=== PATIENT | male | born 1965 | race Caucasian/White ===

== ENCOUNTER 2016-10-07 15:09 | Inpatient (IN) ==
--- NOTE | 2016-10-07 15:26 | Emergency Department Report ---
SOB HPI - General Chief Complaint: Shortness of Breath/Dyspnea Stated Complaint: Soa Time Seen by Provider: 10/07/16 15:22 Source: patient Mode of arrival: ambulatory Limitations: no limitations - History of Present Illness 51 YO M presents to ED with report of increasing dyspnea. Patient has a hx. of COPD. Says that over the last week he has become more SOA. Feels like he is fluid overloaded as well (hx. of CHF). Patient has not been taking any medication for past 6 months. Has not seen his PCP for six months. Patient is currently on 3L of O2/NC at all times. Does have c-pap but does not always use. States he smoke only 1/2 cigarette denies fever, chills, new or increasing cough , CP, abdominal pain, tenderness in lower extremities, sick contacts. Patient does have a hx. of severe anxiety/depression. MD Complaint: shortness of breath Onset (ago): day(s) Known history of: COPD, congestive heart failure, diabetes Treatment prior to arrival: oxygen - Related Data Home oxygen amount: 3 liters Home Medications Medication Instructions Recorded Confirmed No known Home medications [No home 10/07/16 10/07/16 meds] Allergies Allergy/AdvReac Type Severity Reaction Status Date / Time No Known Drug Allergies Allergy Unknown Verified 10/07/16 15:43 Review of Systems All systems: reviewed and negative except as stated Respiratory: Reports: as per HPI, dyspnea PFSH Patient Stated Medical History Congestive Heart Failure Yes Hypertension Yes Asthma Yes Chronic Obstructive Pulmonary Yes Disease (COPD) Pneumonia Yes Sleep Apnea Yes Diabetes Mellitus Type 2 Yes Surgical History: Heart catheterization. Shoulder arthroscopy Family History: Noncontributory - Social History Household members: children Current occupational status: disabled Physical Exam - Limitations Limitations: no limitations - General General appearance: alert - Normal Exams: Head:: Normocephalic without trauma Eyes:: Pupils are PERRLA w/ EOMI, No scleral icterus, irritation ENMT:: No facial trauma, nasal exudates, pharyngeal erythema, or exudates are noted Neck:: Full range of motion, without adenopathy Abdomen:: Bowel sounds positive, soft, non-tender Musculoskeletal:: No tenderness, good range of motion, all extremities Integumentary:: No rashes Neurological:: Patient is alert, and oriented, cranial nerves, motor/sensory/ cerebellar, exams w/o gross deficits, to observation Psychiatric:: Patient exhibits, appropriate attention - Respiratory Respiratory exam: Present: respiratory distress (tachypnic, 36 R/min, patient sitting up to breath) - Expanded Respiratory Exam Location: Left: decreased breath sounds (Patient has minimal air movement throughout lungs bilt.), Right: decreased breath sounds, Upper: decreased breath sounds, Lower: decreased breath sounds - Cardiovascular Cardiovascular exam: Present: other (rate 98 BPM and regular rhythm) - Skin Skin exam: Present: warm, dry - Psychiatric Psychiatric exam: Present: anxious Course - Consultations Consultation #1: I discussed patient's HPI, PMH, labs, CXR, VS, exam findings and medication given in the ED with Dr. Desai. Dr. Desai will admit patient observation. Vital Signs Temperature 98.3 F 10/07/16 15:13 Pulse Rate 97 10/07/16 15:13 Respiratory Rate 36 H 10/07/16 15:13 Blood Pressure 186/109 H 10/07/16 15:13 Pulse Oximetry 95 10/07/16 15:13 Temperature 96.5 F L 10/08/16 07:24 Pulse Rate 91 10/08/16 08:00 Respiratory Rate 24 10/08/16 08:30 Blood Pressure 161/92 H 10/08/16 07:24 Pulse Oximetry 96 10/08/16 08:30 Shortness of Breath/Dyspnea - [facility] Narrative Medical decision making narrative: Patient is able to move more air throughout lungs after duoneb, still decreased throughout bilaterally, and tachypnea. Patient still tripoding. Improved movement of air flow throughout lungs after 2nd DuoNeb, patient is able to lie down. Patient remains tachypneic. RT miguelina from vein not artery for blood gas. Patient compensating well due to respiratory distress. VGB patient appears hypercapnic most likely from having O2 set too high. CBC unremarkable. NA 147, Troponin 0.048, BNP 949, no acute cardiopulmonary findings. Patient has urinated almost 1 liter off after 40mg of lasix. Air movement throughout bilateral lungs park improved. Patient has improvement of RR from 36 to 26 respiration per minutes. I discussed labs, EKG and CXR with patient and answered his questions. Patient agrees to admission for COPD exacerbation. Patient is admitted observation improved. - Differential Diagnosis Likely: acute exacerbation of chronic obstructive airways disease, congestive heart failure, community acquired pneumonia - Medical Records Attestation: I reviewed the patient's medical records. - Lab Data Attestation: I reviewed the patient's lab results. Result diagrams: 10/08/16 04:34 10/08/16 04:34 Lab Results 10/07/16 10/07/16 10/07/16 Range/Units 15:40 15:40 15:40 WBC 10.6 (4.5-11.0) T/MM3 RBC 4.99 (4.50-5.90) M/MM3 Hgb 14.4 (13.5-17.5) GM/DL Hct 46.3 (41-53) % MCV 92.8 (80-100) UM3 MCH 28.9 (26-34) UUG MCHC 31.1 (31-37) GM/DL RDW Std Deviation 44.0 (36.9-50.2) FL Plt Count 166 (130-400) T/MM3 MPV 9.6 (9.4-12.4) UM3 Immature Gran % (Auto) 0.1 (0.0-0.5) % Neut % (Auto) 74.3 H (33-66) % Lymph % (Auto) 16.5 L (23-45) % [place] % (Auto) 6.9 (0-9.0) % Eos % (Auto) 1.9 (0-4) % Baso % (Auto) 0.3 (0-2) % Neut # 7.9 H (1.8-7.7) T/MM3 Lymph # 1.8 (1-4.8) T/MM3 [place] # 0.7 (0-0.8) T/MM3 Eos # 0.2 (0-0.5) T/MM3 Baso # 0.0 (0-0.2) T/MM3 Abs Immat Gran (auto) 0.01 (0.00-0.03) T/MM3 Specimen Type ABG pH ABG pCO2 ABG pO2 ABG HCO3 ABG Total CO2 ABG O2 Saturation ABG Base Excess VBG pH (7.31-7.41) VBG pCO2 (40-52) MMHG VBG pO2 (40-52) MMHG VBG HCO3 (22-26) MEQ/L VBG Total CO2 MEQ/L VBG O2 Saturation % VBG Base Excess (-2.0-2.0) MMOL/L O2 Delivery Method Vent Rate FiO2 % FiO2 (liters per min) PEEP Inspiratory Pressure Pressure Support Turbidity < 20 (0-20) Sodium 147 H (134-144) MEQ/L Potassium 4.0 (3.6-5) MEQ/L Chloride 97 L (98-107) MEQ/L Carbon Dioxide 39 H (22-30) MEQ/L Anion Gap 11 (5-15) MEQ/L BUN 14.0 (9-20) MG/DL Creatinine 0.8 (0.8-1.5) MG/DL GFR Calculation 102 BUN/Creatinine Ratio 18 (6-26) RATIO Glucose 135 H (75-110) MG/DL Calculated Osmolality 285 H (261-280) MOSM/KG Calcium 9.2 (8.4-10.2) MG/DL Icterus Index < 2 (0-7) Troponin I 0.048 (0-0.12) ng/ml B-Natriuretic Peptide 949 H (0-175) pg/mL Specimen Hemolysis < 15 (0-25) 10/07/16 10/07/16 Range/Units 16:40 16:40 WBC (4.5-11.0) T/MM3 RBC (4.50-5.90) M/MM3 Hgb (13.5-17.5) GM/DL Hct (41-53) % MCV (80-100) UM3 MCH (26-34) UUG MCHC (31-37) GM/DL RDW Std Deviation (36.9-50.2) FL Plt Count (130-400) T/MM3 MPV (9.4-12.4) UM3 Immature Gran % (Auto) (0.0-0.5) % Neut % (Auto) (33-66) % Lymph % (Auto) (23-45) % [place] % (Auto) (0-9.0) % Eos % (Auto) (0-4) % Baso % (Auto) (0-2) % Neut # (1.8-7.7) T/MM3 Lymph # (1-4.8) T/MM3 [place] # (0-0.8) T/MM3 Eos # (0-0.5) T/MM3 Baso # (0-0.2) T/MM3 Abs Immat Gran (auto) (0.00-0.03) T/MM3 Specimen Type Cancelled ABG pH Cancelled ABG pCO2 Cancelled ABG pO2 Cancelled ABG HCO3 Cancelled ABG Total CO2 Cancelled ABG O2 Saturation Cancelled ABG Base Excess Cancelled VBG pH 7.390 (7.31-7.41) VBG pCO2 67 H (40-52) MMHG VBG pO2 28 L (40-52) MMHG VBG HCO3 41 H (22-26) MEQ/L VBG Total CO2 42.7 MEQ/L VBG O2 Saturation 52.0 % VBG Base Excess 12.8 H (-2.0-2.0) MMOL/L O2 Delivery Method Cancelled Nasal cannula, liter Vent Rate Cancelled FiO2 % Cancelled FiO2 (liters per min) Cancelled PEEP Cancelled Inspiratory Pressure Cancelled Pressure Support Cancelled Turbidity (0-20) Sodium (134-144) MEQ/L Potassium (3.6-5) MEQ/L Chloride (98-107) MEQ/L Carbon Dioxide (22-30) MEQ/L Anion Gap (5-15) MEQ/L BUN (9-20) MG/DL Creatinine (0.8-1.5) MG/DL GFR Calculation BUN/Creatinine Ratio (6-26) RATIO Glucose (75-110) MG/DL Calculated Osmolality (261-280) MOSM/KG Calcium (8.4-10.2) MG/DL Icterus Index (0-7) Troponin I (0-0.12) ng/ml B-Natriuretic Peptide (0-175) pg/mL Specimen Hemolysis (0-25) - Radiology Data Attestation: I reviewed the patient's radiology results. No acute cardio-pulmonary findings (Dr. Singh) - EKG Data EKG #1 EKG attestation: Yes: I reviewed and interpreted this EKG. EKG results narrative: Sinus rhythm with rate of 89 BPM, No STEMI. T wave abnormality documented on previous EKG (Dr. Singh0 EKG #2 EKG attestation: Yes: I reviewed and interpreted this EKG. EKG results narrative: SR, 97 BPM, No STEMI, (Dr. Singh) Disposition Clinical Impression: Acute chronic obstructive pulmonary disease with respiratory distress Disposition: To [facility] Condition: Stable - Seen By: midlevel
[2016-10-07] MEDS ORDERED: METHYLPREDNISOLONE SOD SUCC 125mg/2ml INJECTION IVP ONE (15:29)
[2016-10-07] MEDS ORDERED: ALBUTEROL/IPRATROPIUM 2.5mg-0.5mg/3ml NEB IH ONE (15:29)
[2016-10-07] MEDS: SALINE FLUSH 10ml SYRINGE IVF PRN ×3 (15:46→19:10)
[2016-10-07] MEDS ORDERED: ALBUTEROL/IPRATROPIUM 2.5mg-0.5mg/3ml NEB AEROSOL ONE (15:47)
[2016-10-07] MEDS ORDERED: FUROSEMIDE 40 MG/4 ML INJECTION IVP ONE (16:17)
[2016-10-07] MEDS ORDERED: SENNOSIDES 8.6 MG TABLET PO PRN (18:05)
[2016-10-07] MEDS ORDERED: CALCIUM CARBONATE Chewable 500mg TABLET PO PRN (18:05)
[2016-10-07] MEDS ORDERED: MAG-AL + SIM ORAL LIQUID 30ml PO PRN (18:05)
[2016-10-07] MEDS ORDERED: ONDANSETRON 4 MG/2 ML INJECTION IVP PRN (18:05)
[2016-10-07] MEDS ORDERED: ALBUTEROL 2.5mg/3ml (0.083%) NEB AEROSOL PRN (18:13)
[2016-10-07 18:47] VITALS: BMI 36.5
[2016-10-07] MEDS ORDERED: FUROSEMIDE 20 MG/2 ML INJECTION IVP ONE (18:48)
--- NOTE | 2016-10-07 18:58 | History & Physical Report ---
History of Present Illness Date: 10/07/16 Chief complaint: "I can't catch my breath anymore" HPI: Mr. Antonio is a 51-year-old gentleman with multiple chronic medical conditions including dilated CM and previous TTE in October 2015 with EF of 30%, global hypokinesis, dilated LV. He had a cardiac cath in 2014 with normal coronary arteries. He was admitted here one year ago with chest pain and dyspnea as well as agitation and anxiety and improved with treatment of COPD and heart failure. He does have significant COPD, continued tobacco dependence and HTN as well as severe anxiety. He has not taken any prescribed medications for the past 6 months or so, is recently and on disability due to his medical issues but is not yet receiving medical benefits so has no insurance at this time. He has not seen his PCP recently, but he is on 3L of 02 chronically at home (continuous). He has been more short of air the last week, to the point where he is barely smoking. He presented to the ED today and is improved after duoneb treatments, IV solumedrol and a dose of lasix 40 mg IV x1 but still very dyspneic with speech. His primary concern currently is his anxiety; he feels like he cannot calm down. He remains tachypneic and tachycardic. His son and his mom are here with him at the bedside. He is worried about his cardiac function, has not seen Dr. Merchant recently and has been off of all his medications as above. He feels his weights have gone up a little and he feels "puffy". Review of Systems - Constitutional Constitutional: Present: as per HPI, daytime sleepiness, weight gain. Absent: anorexia, chills, fever(s), headache(s) - EENMT Eyes: Absent: blurry vision, change in vision Balance: Absent: vertigo Mouth/Throat: Absent: sore throat, changes in swallowing - Cardiovascular Cardiovascular: Present: dyspnea on exertion, orthopnea, edema (trace LE). Absent: chest pain, palpitations, syncope Vascular: Present: pedal edema. Absent: unilateral swelling, varicosities - Respiratory Respiratory: Present: cough, dyspnea, wheezing. Absent: hemoptysis, excessive phlegm production - Gastrointestinal Gastrointestinal: Absent: abdominal pain, change in bowel habits, dysphagia - Genitourinary Genitourinary: Absent: difficulty urinating, dysuria - Musculoskeletal Musculoskeletal: Present: back pain. Absent: muscle cramps, muscle weakness - Integumentary/Breasts Integumentary: Absent: erythema, pruritus, rash - Neurological Neurological: Absent: abnormal speech, confusion, focal weakness, sensory deficit - Psychiatric Psychiatric: Present: anxiety, depression - Endocrine Endocrine: Absent: cold intolerance, heat intolerance, polydipsia, polyphagia - Hematologic/Lymphatic Hematologic/Lymphatic: Absent: easy bleeding, easy bruising, lymphadenopathy - Allergic/Immunologic Allergic/Immunologic: Absent: tongue swelling, throat swelling PFSH As per HPI, notable for dilated CM and EF of 30%, COPD requiring chronic 02 continuously, HTN, dyslipidemia, tobacco dependence, obesity and chronic lumbago as well as chronic anxiety. Surgical History: Heart catheterization. Shoulder arthroscopy Family History: Father with HTN and alcoholism. One brother has due to issues related to EtOH. No heart disease he is aware of. - Social History Smoking status: Current every day smoker Time spent discussing smoking cessation with patient: 3 to 10 minutes Substance use type: does not use Alcohol intake frequency: holidays/special occasions only Household members: children (son lives with him, he is recently ) Current occupational status: disabled Medications Home Medications Medication Instructions Recorded Confirmed Type No known Home medications [No home 10/07/16 10/07/16 History meds] Allergies Allergy/AdvReac Type Severity Reaction Status Date / Time No Known Drug Allergies Allergy Unknown Verified 10/07/16 15:43 Exam Vital Signs: Temperature 98.3 F 10/07/16 18:42 Pulse Rate 87 10/07/16 18:42 Respiratory Rate 22 10/07/16 18:42 Blood Pressure 175/94 H 10/07/16 18:42 Pulse Oximetry 91 10/07/16 18:42 Oxygen Delivery Method Nasal Cannula Oxygen Flow Rate 3 Telemetry Rhythm: Sinus Tachycardia Height: 1.8 m Weight: 118.9 kg Body Mass Index: 36.5 - Constitutional Present: mild distress, obese, disheveled, cooperative - Routine HEENT Exam Head: Present: normocephalic, atraumatic Eye: Present: EOMI, PERRL. Absent: conjunctival icterus ENT: Present: mucous membranes moist, oropharynx clear - Routine Neck Exam Present: supple, full ROM. Absent: lymphadenopathy, tenderness - Routine Chest/Breast/Axilla Exam Chest wall: Absent: tenderness, mass - Routine Respiratory Exam Present: accessory muscle use, dyspnea, wheezes, diminished air movement - Routine Cardiovascular Exam Present: tachycardia. Absent: no murmur, rubs - Routine Abdominal Exam Present: soft (obese). Absent: non distended, non tender - Routine Extremities Exam Present: edema (trace BLE), full ROM, pulses intact. Absent: cyanosis, clubbing - Routine Back/Spine/Pelvis Exam Back/Spine: Present: full ROM. Absent: CVA tenderness - Routine Skin Exam Present: intact, dry. Absent: erythema, rash - Routine Neurological Exam Present: alert, oriented X3, moving all extremities, vision grossly intact, hearing grossly intact, normal speech - Routine Psychiatric Exam Present: anxious Results - Labs CBC & Chem 7: 10/07/16 15:40 10/07/16 15:40 Labs: Previous admissions reviewed; TTE results reviewed as below: DATE OF PROCEDURE 11/02/2015 This is a two-dimensional echo with spectral Doppler, color-flow and M-mode. It was obtained in a patient with shortness of air. Left atrial dimension is normal. Left ventricular end-diastolic dimension is increased. Left ventricular wall thickness is normal. LV systolic function is reduced with global hypokinesia with ejection fraction of about 30%. Right atrium is normal. Right ventricle is normal. Aortic root dimension is normal. Mitral valve is morphologically normal with trace of mitral regurgitation. Aortic valve is normal. Tricuspid valve shows trace of tricuspid regurgitation with low pulmonary artery systolic pressure of 14. Pulmonary valve shows trace of pulmonary insufficiency. There is no pericardial effusion. IMPRESSION 1. Left ventricular dilation. 2. Global hypokinesia with ejection fraction of about 30%. 3. Trace of mitral regurgitation. 4. Trace of tricuspid regurgitation with low systolic pulmonary pressure of 14. 5. Trace of pulmonary insufficiency. - ABG Interpretation Interpretation: venous blood gas (reviewed with pH 7.39, PC02 67) Assessment and Plan (1) Dilated cardiomyopathy Problem details: EF 30% on TTE done 10/2015; global hypokinesis and dilated LV Current visit: Yes Status: Acute (2) Hypertension Problem details: Off all medications for > 6 months, uncontrolled Current visit: Yes Status: Acute (3) COPD, severe Problem details: on 3L NC chronically at home Current visit: Yes Status: Acute (4) Acute and chronic respiratory failure with hypoxia Problem details: Chronic secondary to COPD, acute likely a combination of COPD exacerbation and volume overload/systolic heart failure exacerbation Current visit: Yes Status: Acute (5) Tobacco dependence syndrome Problem details: Ongoing, discussed cessation, unclear how much he is smoking routinely Current visit: Yes Status: Acute (6) Anxiety Problem details: Severe and chronic, untreated, exacerbated by dyspnea Current visit: Yes Status: Acute (7) Metabolic alkalosis with respiratory acidosis Problem details: C02 39 at admission, likely chronic compensation due to resp acidosis Current visit: Yes Status: Acute (8) Acute hypernatremia Problem details: Na 147 at admission Current visit: Yes Status: Acute DVT Prophylaxis: Lovenox Resuscitation Status: Full Code Assessment and Plan: Plan: Keep for observation tonight, monitor respiratory status Azithromycin 500 mg po now and daily for inflammation Lasix IV 20 mg x 1 in addition to dose given in ED, monitor weights and I/Os Solumedrol 125 mg IV Q6H acutely for COPD exacerbation Repeat TTE if able in AM 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; will start lisinopril 10 mg daily for cardiomyopathy and HTN Start beta chantale if able when breathing improved Start ASA 81 mg po daily Duoneb treatments QID and prn albuterol nebulized Ativan 1 mg prn for anxiety Cardiac diet BMP, CBC, lipid panel in AM for surveillance as well as A1C Case management consult to help determine what resources may be available for medications Discussed smoking cessation tonight Will reassess in AM; if not improved with supportive care or concern for worsening cardiac issues may need to be inpatient but at this point I expect him to improve with supportive care and anticipate his stay will be < 2 midnights. Sepsis Assessment - Evaluation Sepsis screening result: No Definite Risk Confirmed Suspected Infection: No SIRS Criteria: pulse > or equal to 90 beats/minute, RR > or equal to 20 Severe Sepsis: none seen - Focused Exam Date exam was performed: 10/07/16 Time exam was performed: 18:30 -see admission records for detailed exam and vitals Hospital Course Summary Disclaimer: The visit summary below is not to be considered part of the above Progress Note. Hospital Course: 10/07/16 19:27 Assessment: Acute hypoxic respiratory failure on chronic; typically on 3L baseline, primarily secondary to COPD exacerbation in the setting of severe COPD as well as dilated CM. Mild edema but no evidence of volume overload on CXR. Labs diffusely normal. Has been off of all of his medications for > 6 months due to financial issues and cardiac status may have worsened. Has ongoing tobacco dependence as well. No evidence of sepsis or acute infection. 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
[2016-10-07] MEDS: AZITHROMYCIN 500 MG TABLET PO SCH (19:02)
[2016-10-07] MEDS: ENOXAPARIN 40 MG/0.4 ML INJECTION SQ SCH (19:02)
[2016-10-07] MEDS: LORazepam 1 MG TABLET PO PRN (19:10)
[2016-10-07] MEDS: BUDESONIDE INH.SOLN 0.5mg/2ml NEB AEROSOL SCH (20:40)
[2016-10-07] MEDS: ALBUTEROL/IPRATROPIUM 2.5mg-0.5mg/3ml NEB AEROSOL SCH (20:40)
[2016-10-07] MEDS: METHYLPREDNISOLONE SOD SUCC 125mg/2ml INJECTION IVP SCH (21:23)
[2016-10-08] MEDS: METHYLPREDNISOLONE SOD SUCC 125mg/2ml INJECTION IVP SCH ×2 (02:28→09:24)
[2016-10-08] MEDS: LORazepam 1 MG TABLET PO PRN ×3 (02:28→23:57)
[2016-10-08] MEDS ORDERED: NICOTINE PATCH REMOVAL TD PRN (06:29)
[2016-10-08] MEDS: ALBUTEROL/IPRATROPIUM 2.5mg-0.5mg/3ml NEB AEROSOL SCH ×4 (08:32→21:05)
[2016-10-08] MEDS: BUDESONIDE INH.SOLN 0.5mg/2ml NEB AEROSOL SCH ×2 (08:32→21:05)
[2016-10-08] MEDS: ENOXAPARIN 40 MG/0.4 ML INJECTION SQ SCH (09:25)
[2016-10-08] MEDS: SALINE FLUSH 10ml SYRINGE IVF PRN ×2 (09:25→22:03)
[2016-10-08] MEDS: AZITHROMYCIN 500 MG TABLET PO SCH (09:25)
--- NOTE | 2016-10-08 09:36 | XRay Report ---
INDICATION: SOA PROCEDURE: CHEST 2-VIEWS UPRIGHT (PA & LAT) Encounter: Initial COMPARISON: April 25, 2016 FINDINGS: The lungs are clear without evidence of focal abnormal airspace opacity. There is no pleural effusion or pneumothorax. The heart size, mediastinal contours and pulmonary vascularity are within normal limits. There is no significant skeletal abnormality. IMPRESSION: No acute cardiopulmonary disease. .
[2016-10-08] MEDS: INSULIN ASPART 100unit/ml INJECTION SQ PRN ×3 (11:28→23:29)
--- NOTE | 2016-10-08 11:42 | Progress Note ---
Subjective: Breathing is better today. Feels very anxious. Using a nicotine patch that he requested overnight, also receiving IV ativan. Son is staying with him in the room. Still feels "bloated" and thinks his weights are higher than typical for him. Does not want to be on a cardiac diet but discussed reasons this is helpful. States that his diabetes has resolved over the last year due to weight loss but has not had any blood sugars checked or A1C testing done. Objective Vital signs: Temperature 96.5 F L 10/08/16 07:24 Pulse Rate 91 10/08/16 08:00 Respiratory Rate 24 10/08/16 08:30 Blood Pressure 161/92 H 10/08/16 07:24 Pulse Oximetry 96 10/08/16 08:30 Oxygen Delivery Method Nasal Cannula Oxygen Flow Rate 3 Rhythm: Normal Sinus Rhythm Weight: 117.4 kg Comments: tachycardia at times - Constitutional Present: no acute distress, cooperative - Routine HEENT Exam Head: Present: normocephalic, atraumatic ENT: Present: mucous membranes moist, oropharynx clear - Routine Respiratory Exam Present: CTA bilaterally (in upper airways, diminished bases ), prolonged expiratory phase. Absent: accessory muscle use, respiratory distress, wheezes, crackles - Routine Cardiovascular Exam Present: RRR. Absent: no murmur, rubs - Routine Abdominal Exam Present: soft, normoactive bowel sounds. Absent: tenderness, non distended - Routine Extremities Exam Present: edema (trace bLE), full ROM, pulses intact, normal capillary refill - Routine Skin Exam Present: intact, dry, warm. Absent: rash - Routine Neurological Exam Present: alert, oriented X3, vision grossly intact, hearing grossly intact, normal speech - Routine Psychiatric Exam Present: anxious Results - Labs CBC & Chem 7: 10/08/16 04:34 10/08/16 04:34 Assessment and Plan (1) Dilated cardiomyopathy Problem details: EF 30% on TTE done 10/2015; global hypokinesis and dilated LV Current visit: Yes Status: Acute (2) Hypertension Problem details: Off all medications for > 6 months, uncontrolled Current visit: Yes Status: Acute (3) COPD, severe Problem details: on 3L NC chronically at home Current visit: Yes Status: Chronic (4) Acute and chronic respiratory failure with hypoxia Problem details: Chronic secondary to COPD, acute likely a combination of COPD exacerbation and volume overload/systolic heart failure exacerbation Current visit: Yes Status: Acute (5) Tobacco dependence syndrome Problem details: Ongoing, discussed cessation, unclear how much he is smoking routinely Current visit: Yes Status: Acute (6) Anxiety Problem details: Severe and chronic, untreated, exacerbated by dyspnea Current visit: Yes Status: Acute (7) Metabolic alkalosis with respiratory acidosis Problem details: C02 39 at admission, likely chronic compensation due to resp acidosis Current visit: Yes Status: Acute (8) Acute hypernatremia Problem details: Na 147 at admission, improved to 141 Current visit: Yes Status: Resolved DVT Prophylaxis: Lovenox Resuscitation Status: Full Code Assessment and Plan: Plan: Keep for observation overnight, obtain TTE and opinion from Dr. Merchant tomorrow AM Azithromycin 500 mg po daily for airway inflammation, no evidence of acute infection Bumex 1 mg po daily, monitor weights and I/Os closely Stop solumedrol and start prednisone 40 mg po daily Repeat TTE today for surveillance, resume cardiac meds with lisinopril, ASA, statin; will start BB when breathing improved Monitor BP and increased meds as needed if remaining elevated Start beta chantale if able when breathing improved Duoneb treatments QID and prn albuterol nebulized Ativan 1 mg TID prn for anxiety Cardiac diet Check lipid panel and A1C for surveillance Case management consult to help determine what resources may be available for medications Discussed smoking cessation again today Will reassess in AM; if not improved with supportive care or concern for worsening cardiac issues may need to be inpatient but at this point I expect him to improve with supportive care and anticipate his stay will still be < 2 midnights. Likely can discharge tomorrow after echo results available if breathing improved; he has home 02 available already. Will need to discuss his medications and try to find a regimen he can afford. Sepsis Assessment - Evaluation Sepsis screening result: No Definite Risk Hospital Course Summary Disclaimer: The visit summary below is not to be considered part of the above Progress Note. Hospital Course: 10/07/16 19:27 Assessment: Acute hypoxic respiratory failure on chronic; typically on 3L baseline, primarily secondary to COPD exacerbation in the setting of severe COPD as well as dilated CM. Mild edema but no evidence of volume overload on CXR. Labs diffusely normal. Has been off of all of his medications for > 6 months due to financial issues and cardiac status may have worsened. Has ongoing tobacco dependence as well. No evidence of sepsis or acute infection. 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 Merchant tomorrow Azithromycin 500 mg po daily for airway inflammation, no evidence of acute infection Bumex 1 mg po daily, monitor weights and I/Os closely Stop solumedrol and start prednisone 40 mg po daily Resume cardiac meds with lisinopril, ASA, statin; will start BB when breathing improved Monitor BP and increased meds as needed if remaining elevated Start beta [place] if able when breathing improved Duoneb treatments QID and prn albuterol nebulized Ativan 1 mg TID prn for anxiety Cardiac diet Check lipid panel and A1C for surveillance Case management consult to help determine what resources may be available for medications Discussed smoking cessation again today
[2016-10-08] MEDS: LISINOPRIL 20 MG TABLET PO SCH (12:19)
[2016-10-08] MEDS: BUMETANIDE 1 MG TABLET PO SCH (12:19)
[2016-10-08] MEDS: ACETAMINOPHEN 325 MG TABLET PO PRN ×2 (12:19→19:24)
[2016-10-08] MEDS ORDERED: NITROGLYCERIN 0.4 MG SUBLINGUAL TABLET SL PRN (19:03)
[2016-10-08] MEDS: MORPHINE SULFATE 2 MG SYRINGE IVP PRN ×2 (19:32→23:57)
[2016-10-08] MEDS ORDERED: MORPHINE SULFATE 10 MG SYRINGE IV ONE (19:58)
[2016-10-08] MEDS: SIMVASTATIN 20 MG TABLET PO SCH (22:02)
--- NOTE | 2016-10-09 01:03 | Event Note ---
patient had onset of chest pain and was discussed with off going hospitalist. EKG and labs ordered with NTG and morphine. The EKG was quiet. troponin was unchanged essentially from baselilne and has remained so. Patient continues with intermittent pain tonight. DDX: MS, pleuresy, GERD. at this time will complete rule out on tele. dimer is pending. If signficantly elevated will need to consider doing a CT PE to exclude clot. vitals are stable. exam was unremarkable.
[2016-10-09] MEDS: INSULIN ASPART 100unit/ml INJECTION SQ PRN ×4 (07:40→23:07)
[2016-10-09] MEDS: ALBUTEROL/IPRATROPIUM 2.5mg-0.5mg/3ml NEB AEROSOL SCH ×4 (07:49→20:00)
[2016-10-09] MEDS: BUDESONIDE INH.SOLN 0.5mg/2ml NEB AEROSOL SCH ×2 (07:49→20:00)
[2016-10-09] MEDS: ENOXAPARIN 40 MG/0.4 ML INJECTION SQ SCH (09:21)
[2016-10-09] MEDS: ASPIRIN *EC* 325 MG TABLET PO SCH (09:21)
[2016-10-09] MEDS: AZITHROMYCIN 500 MG TABLET PO SCH (09:21)
[2016-10-09] MEDS: PredniSONE 20 MG TABLET PO SCH (09:22)
[2016-10-09] MEDS: LISINOPRIL 20 MG TABLET PO SCH (09:22)
[2016-10-09] MEDS: BUMETANIDE 1 MG TABLET PO SCH (09:22)
[2016-10-09] MEDS: MORPHINE SULFATE 2 MG SYRINGE IVP PRN ×3 (09:26→23:05)
[2016-10-09] MEDS: LORazepam 1 MG TABLET PO PRN ×3 (09:28→23:07)
--- NOTE | 2016-10-09 11:35 | Progress Note ---
<Breanna Jonas V - Last Filed: 10/09/16 11:31> Subjective: Gray is seen today in follow up. He reports that he did have several episodes of chest pain overnight and attributes this to "anxiety". He reports he is going through a difficulty divorce and he thinks this is causing significant stress and anxiety. Overall feels that his breathing is improved. Denies current chest pain or GI complaints. Objective Vital signs: Temperature 97.5 F 10/09/16 08:00 Pulse Rate 95 10/09/16 08:00 Respiratory Rate 18 10/09/16 08:00 Blood Pressure 148/85 H 10/09/16 08:00 Pulse Oximetry 96 10/09/16 08:00 Oxygen Delivery Method Nasal Cannula Oxygen Flow Rate 3 Fraction of Inspired Oxygen 96 Weight: 119.3 kg - Constitutional Present: no acute distress, well nourished, well developed - Routine HEENT Exam Eye: Present: EOMI, PERRL ENT: Present: mucous membranes moist, dentition normal - Routine Respiratory Exam Present: CTA bilaterally. Absent: wheezes - Routine Cardiovascular Exam Present: RRR, S1, S2. Absent: murmur - Routine Abdominal Exam Present: soft, normoactive bowel sounds, non distended. Absent: tenderness - Routine Extremities Exam Present: full ROM, normal capillary refill - Routine Back/Spine/Pelvis Exam Back/Spine: Present: full ROM - Routine Skin Exam Present: intact, dry, warm - Routine Neurological Exam Present: alert, oriented X3, CN II-XII intact - Routine Lymphatic Exam Lymphatic: Absent: adenopathy - Routine Psychiatric Exam Present: normal affect, normal thought process Results - Labs CBC & Chem 7: 10/09/16 00:00 10/09/16 00:00 Assessment and Plan (1) Dilated cardiomyopathy Problem details: EF 30% on TTE done 10/2015; global hypokinesis and dilated LV Current visit: Yes Status: Acute (2) Hypertension Problem details: Off all medications for > 6 months, uncontrolled Current visit: Yes Status: Acute (3) COPD, severe Problem details: on 3L NC chronically at home Current visit: Yes Status: Chronic (4) Acute and chronic respiratory failure with hypoxia Problem details: Chronic secondary to COPD, acute likely a combination of COPD exacerbation and volume overload/systolic heart failure exacerbation Current visit: Yes Status: Acute (5) Tobacco dependence syndrome Problem details: Ongoing, discussed cessation, unclear how much he is smoking routinely Current visit: Yes Status: Acute (6) Anxiety Problem details: Severe and chronic, untreated, exacerbated by dyspnea Current visit: Yes Status: Acute (7) Metabolic alkalosis with respiratory acidosis Problem details: C02 39 at admission, likely chronic compensation due to resp acidosis Current visit: Yes Status: Acute (8) Acute hypernatremia Problem details: Na 147 at admission, improved to 141 Current visit: Yes Status: Resolved Assessment and Plan: 10/09/16 Awaiting cardiology consultation and ECHO read. Several episodes of Chest pain overnight. Troponins are negative. 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 This is likely the cause of leukocytosis. Bumex 1 mg po daily, monitor weights and I/Os closely Continue on Bumex, lisinopril, ASA, statin and BB Duoneb treatments QID and prn albuterol nebulized Ativan 1 mg TID prn for anxiety. May need to consider a SSRI for ongoing treatment of anxiety. Will discuss further plan on care with attending Dr Ramírez. Sepsis Assessment - Evaluation Sepsis screening result: No Definite Risk Hospital Course Summary Disclaimer: The visit summary below is not to be considered part of the above Progress Note. Hospital Course: 10/07/16 19:27 Assessment: Acute hypoxic respiratory failure on chronic; typically on 3L baseline, primarily secondary to COPD exacerbation in the setting of severe COPD as well as dilated CM. Mild edema but no evidence of volume overload on CXR. Labs diffusely normal. Has been off of all of his medications for > 6 months due to financial issues and cardiac status may have worsened. Has ongoing tobacco dependence as well. No evidence of sepsis or acute infection. 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 Merchant tomorrow Azithromycin 500 mg po daily for airway inflammation, no evidence of acute infection Bumex 1 mg po daily, monitor weights and I/Os closely Stop solumedrol and start prednisone 40 mg po daily Resume cardiac meds with lisinopril, ASA, statin; will start BB when breathing improved Monitor BP and increased meds as needed if remaining elevated Start beta [place] if able when breathing improved Duoneb treatments QID and prn albuterol nebulized Ativan 1 mg TID prn for anxiety Cardiac diet Check lipid panel and A1C for surveillance Case management consult to help determine what resources may be available for medications Discussed smoking cessation again today <Melissa Ramírez - Last Filed: 10/09/16 15:34> Objective Vital signs: Temperature 97.5 F 10/09/16 08:00 Pulse Rate 95 10/09/16 08:00 Respiratory Rate 18 10/09/16 12:43 Blood Pressure 148/85 H 10/09/16 08:00 Pulse Oximetry 96 10/09/16 12:43 Results - Labs CBC & Chem 7: 10/09/16 00:00 10/09/16 00:00 Assessment and Plan (1) Dilated cardiomyopathy Problem details: EF 30% on TTE done 10/2015; global hypokinesis and dilated LV Current visit: Yes Status: Acute (2) Hypertension Problem details: Off all medications for > 6 months, uncontrolled Current visit: Yes Status: Acute (3) COPD, severe Problem details: on 3L NC chronically at home Current visit: Yes Status: Chronic (4) Acute and chronic respiratory failure with hypoxia Problem details: Chronic secondary to COPD, acute likely a combination of COPD exacerbation and volume overload/systolic heart failure exacerbation Current visit: Yes Status: Acute (5) Tobacco dependence syndrome Problem details: Ongoing, discussed cessation, unclear how much he is smoking routinely Current visit: Yes Status: Acute (6) Anxiety Problem details: Severe and chronic, untreated, exacerbated by dyspnea Current visit: Yes Status: Acute (7) Metabolic alkalosis with respiratory acidosis Problem details: C02 39 at admission, likely chronic compensation due to resp acidosis Current visit: Yes Status: Acute (8) Acute hypernatremia Problem details: Na 147 at admission, improved to 141 Current visit: Yes Status: Resolved Assessment and Plan: I have independently evaluated and examined this patient. I reviewed the chart, the patient's history, and the NUTRITION CONSULTANT/PA's documented findings as above. We discussed and formulated the assessment and plan as above with additions as below: Heron reports that his breathing is improving progressively; he continues to have chest pain but attributes it to anxiety which has been severe recently and he attributes to divorce related stress. He has previously had some counseling and some experience with SSRIs. He has Cymbalta at home but has not been using. Diuresing effectively. Oxygen saturation 96% on 3 L supplemental O2; respiratory rate improved but low- grade tachycardia persists. Respirations are nonlabored. Breath sounds are diminished throughout, no wheezing present, breath sounds clear Regular rhythm, S1 and S2. Trace edema at both ankles. Decrease azithromycin to 250 mg daily. Add sertraline for anxiety/depression. Continue scheduled lorazepam short-term, discharge with when necessary only. Cardiology consultation/Echo report pending. Need for medical follow-up at discharge discussed with patient in detail. EKG obtained overnight reviewed by myself-sinus rhythm/sinus tach, no acute changes; unchanged from admission. Chest x-ray also reviewed demonstrating relatively normal heart size and normal vascular markings. Clinically improved with diuresis although findings more suggestive of COPD exacerbation. Tobacco cessation also reviewed with the patient. Hospital Course Summary Disclaimer: The visit summary below is not to be considered part of the above Progress Note.
[2016-10-09] MEDS: CARVEDILOL 3.125 MG TABLET PO SCH ×2 (13:25→17:19)
--- NOTE | 2016-10-09 13:37 | Cardiology Consult Note ---
History of Present Illness Consult date: 10/08/16 <Caryl Salas - 10/09/16 13:48> Requesting physician: Jessica Desai <Caryl Salas - 10/09/16 13:48> Consult reason: chest pain <Caryl Salas - 10/09/16 13:48> Chief complaint: chest pain <Caryl Salas - 10/09/16 13:48> History of present illness: Mr. Antonio is a 51-year-old gentleman who is well known to Dr. Merchant with multiple chronic medical conditions including dilated CM and previous TTE in October 2015 with EF of 30%, global hypokinesis, dilated LV, . He had a cardiac cath in 2014 with normal coronary arteries. He was admitted here one year ago with chest pain and dyspnea as well as agitation and anxiety and improved with treatment of COPD and heart failure. He does have significant COPD, continued tobacco dependence and HTN as well as severe anxiety. He has not taken any prescribed medications for the past 6 months or so, is recently and on disability due to his medical issues but is not yet receiving medical benefits so has no insurance at this time. He has not seen his PCP recently, but he is on 3L of 02 chronically at home (continuous). He has been more short of air the last week, to the point where he is barely smoking. He presented to the ED and is improved after duoneb treatments, IV solumedrol and a dose of lasix 40 mg IV x1 but still very dyspneic with speech. His primary concern currently is his anxiety; he feels like he cannot calm down. He remains tachypneic and tachycardic. He is worried about his cardiac function, has not seen Dr. Merchant recently and has been off of all his medications as above. He feels his weights have gone up a little and he feels "puffy". He is examined in his room on Medical. He has been out in the [place] per wheelchair with his son. He reports SOA with activity and anxiety. He denies chest pain or pressure at this time but describes pain last night as a pain and tightness in his chest and neck, cramping in the right arm. He denies nausea, diaphoresis or syncope. <Caryl Salas 10/09/16 13:48> Review of Systems - Constitutional Constitutional: Absent: chills, fatigue, fever(s) <Caryl Salas 10/09/16 13:48> - EENMT Eyes: Absent: change in vision <Caryl Salas 10/09/16 13:48> Balance: Absent: vertigo <Caryl Salas 10/09/16 13:48> Mouth/Throat: Absent: sore throat, changes in swallowing <Caryl Salas 13:48> - Cardiovascular Cardiovascular: Present: chest pain (and tightness), dyspnea on exertion, edema. Absent: palpitations, syncope, orthopnea <Caryl Salas 10/09/16 13 :48> Vascular: Present: pedal edema. Absent: unilateral swelling, varicosities < Caryl Salas 10/09/16 13:48> - Respiratory Respiratory: Present: dyspnea on exertion. Absent: cough <Caryl Salas 13:48> - Gastrointestinal Gastrointestinal: Absent: constipation, diarrhea, nausea, vomiting <Caryl Salas 10/09/16 13:48> - Genitourinary Genitourinary: Absent: difficulty urinating, dysuria <Caryl Salas 13:48> - Integumentary/Breasts Integumentary: Absent: rash <Caryl Salas 10/09/16 13:48> - Neurological Neurological: Absent: dizziness <Caryl Salas 10/09/16 13:48> - Endocrine Endocrine: Absent: palpitations <Caryl Salas 10/09/16 13:48> [facility] Patient Stated Medical History Congestive Heart Failure Yes Hypertension Yes Asthma Yes Chronic Obstructive Pulmonary Yes Disease (COPD) Pneumonia Yes Sleep Apnea Yes Diabetes Mellitus Type 2 Yes Osteoarthritis Yes MRSA Yes Depression Yes: manic <Caryl Salas 10/09/16 13:48> Surgical History: Heart catheterization-2015- Patent coronaries. Right Shoulder arthroscopy. cholecystectomy <MaritzaCaryl Ziegler 10/09/16 13:48> Family History: No significant family history of Heart disease, CVA, DM or Cancer <MaritzaCaryl Ziegler 10/09/16 13:48> - Social History Smoking status: Current every day smoker <Caryl Salas 10/09/16 13:48> Substance use type: does not use <Caryl Salas 10/09/16 13:48> Alcohol intake frequency: does not drink <Caryl Salas 10/09/16 13:48> Household members: children <Caryl Salas 10/09/16 13:48> Current occupational status: disabled <Caryl Salas 10/09/16 13:48> Current residence: Apartment/Private Home <Caryl Salas 10/09/16 13:48> Medications Allergies Allergy/AdvReac Type Severity Reaction Status Date / Time No Known Drug Allergies Allergy Unknown Verified 10/07/16 15:43 <ShondaLee - 10/11/16 08:12> Exam Vital signs: Temperature 97.2 F 10/10/16 07:27 Pulse Rate 95 10/10/16 07:27 Respiratory Rate 20 10/10/16 12:35 Blood Pressure 157/98 H 10/10/16 07:27 Pulse Oximetry 93 10/10/16 12:35 Oxygen Delivery Method Nasal Cannula Oxygen Flow Rate 3 Fraction of Inspired Oxygen 3 <Lee Merchant - 10/11/16 08:12> Temperature 97.5 F 10/09/16 08:00 Pulse Rate 95 10/09/16 08:00 Respiratory Rate 18 10/09/16 12:43 Blood Pressure 148/85 H 10/09/16 08:00 Pulse Oximetry 96 10/09/16 12:43 Oxygen Delivery Method Nasal Cannula Oxygen Flow Rate 3 Fraction of Inspired Oxygen 96 <Caryl Salas 10/09/16 13:48> - Constitutional no acute distress, obese, cooperative <Caryl Salas 10/09/16 13:48> - Routine HEENT Exam Head: Present: normocephalic <MaritzaCaryl Ziegler 10/09/16 13:48> Nose: moist mucous membranes <MaritzaCaryl Ziegler 10/09/16 13:48> - Routine Neck Exam Absent: JVD, carotid bruit <MaritzaCaryl Karlie 10/09/16 13:48> - Routine Chest/Breast/Axilla Exam Chest wall: Absent: tenderness <Caryl Salas 10/09/16 13:48> - Routine Respiratory Exam Present: CTA bilaterally. Absent: rales, respiratory distress, wheezes < Caryl Salas 10/09/16 13:48> - Routine Cardiovascular Exam Present: no murmur, irregular rhythm. Absent: JVD <Caryl Salas 10/09/16 13:48> - Routine Abdominal Exam Present: soft, normoactive bowel sounds <Caryl Salas 10/09/16 13:48> - Routine Extremities Exam Present: edema <Caryl Salas 10/09/16 13:48> - Routine Skin Exam Present: intact, dry, warm. Absent: rash <Caryl Salas 10/09/16 13:48> - Routine Neurological Exam Present: alert, oriented X3 <Caryl Salas 10/09/16 13:48> - Routine Psychiatric Exam Present: normal affect, normal thought process <Caryl Salas 10/09/16 13: 48> Results 10/09/16 00:00 10/10/16 04:41 <Lee Merchant - 10/11/16 08:12> Intake and Output 10/10/16 10/11/16 10/11/16 22:59 06:59 14:59 Intake Total 800 / 800 Balance 800 / 800 Intake: Oral 800 / 800 <Lee Merchant - 10/11/16 08:12> Cardiac Enzymes 10/08/16 10/08/16 10/09/16 Range/Units 19:11 20:49 00:00 Troponin I 0.040 Cancelled 0.036 (0-0.12) ng/ml CBC 10/09/16 Range/Units 00:00 WBC 17.1 H D (4.5-11.0) T/MM3 RBC 4.65 (4.50-5.90) M/MM3 Hgb 13.7 (13.5-17.5) GM/DL Hct 41.8 (41-53) % Plt Count 191 (130-400) T/MM3 Comprehensive Metabolic Panel 10/09/16 Range/Units 00:00 Sodium 138 (134-144) MEQ/L Potassium 3.9 (3.6-5) MEQ/L Chloride 92 L (98-107) MEQ/L Carbon Dioxide 35 H (22-30) MEQ/L BUN 22.0 H D (9-20) MG/DL Creatinine 0.9 D (0.8-1.5) MG/DL Glucose 249 H (75-110) MG/DL Calcium 9.4 (8.4-10.2) MG/DL Albumin 3.9 (3.5-5.0) G/DL Intake and Output 10/08/16 10/09/16 10/09/16 22:59 06:59 14:59 Intake Total 490 / 490 650 / 650 Output Total 800 / 800 400 / 400 Balance -310 / -310 -400 / -400 650 / 650 Intake: Oral 490 / 490 650 / 650 Output: Urine 800 / 800 400 / 400 Other: # Voids 1 1 Weight 263 lb 0.183 oz Patient Weight 10/10/16 06:59 Weight 263 lb 0.183 oz Laboratory Results - last 72 hr 10/07/16 10/07/16 10/07/16 15:40 15:40 15:40 WBC 10.6 RBC 4.99 Hgb 14.4 Hct 46.3 MCV 92.8 MCH 28.9 MCHC 31.1 RDW Std Deviation 44.0 Plt Count 166 MPV 9.6 Immature Gran % (Auto) 0.1 Neut % (Auto) 74.3 H Lymph % (Auto) 16.5 L [place] % (Auto) 6.9 Eos % (Auto) 1.9 Baso % (Auto) 0.3 Neut # 7.9 H Lymph # 1.8 [place] # 0.7 Eos # 0.2 Baso # 0.0 Abs Immat Gran (auto) 0.01 Neutrophils % (Manual) Band Neutrophils % Lymphocytes % (Manual) Neutrophils # (Manual) Band Neutrophils # Lymphocytes # (Manual) RBC Morph Comment D-Dimer Specimen Type ABG pH ABG pCO2 ABG pO2 ABG HCO3 ABG Total CO2 ABG O2 Saturation ABG Base Excess VBG pH VBG pCO2 VBG pO2 VBG HCO3 VBG Total CO2 VBG O2 Saturation VBG Base Excess O2 Delivery Method Vent Rate FiO2 % FiO2 (liters per min) PEEP Inspiratory Pressure Pressure Support Turbidity < 20 Sodium 147 H Potassium 4.0 Chloride 97 L Carbon Dioxide 39 H Anion Gap 11 BUN 14.0 Creatinine 0.8 GFR Calculation 102 BUN/Creatinine Ratio 18 Glucose 135 H Glucometer Hemoglobin A1c Calculated Osmolality 285 H Calcium 9.2 Phosphorus Magnesium Icterus Index < 2 Troponin I 0.048 B-Natriuretic Peptide 949 H Albumin Specimen Hemolysis < 15 10/07/16 10/07/16 10/08/16 16:40 16:40 04:34 WBC 9.8 RBC 4.98 Hgb 14.4 Hct 44.9 MCV 90.2 MCH 28.9 MCHC 32.1 RDW Std Deviation 42.2 Plt Count 187 MPV 10.3 Immature Gran % (Auto) Not performed Neut % (Auto) Not performed Lymph % (Auto) Not performed [place] % (Auto) Not performed Eos % (Auto) Not performed Baso % (Auto) Not performed Neut # Not performed Lymph # Not performed [place] # Not performed Eos # Not performed Baso # Not performed Abs Immat Gran (auto) Not performed Neutrophils % (Manual) 94.0 H Band Neutrophils % 1.0 Lymphocytes % (Manual) 5.0 L Neutrophils # (Manual) 9.2 H Band Neutrophils # 0.1 Lymphocytes # (Manual) 0.5 L RBC Morph Comment Normal D-Dimer Specimen Type Cancelled ABG pH Cancelled ABG pCO2 Cancelled ABG pO2 Cancelled ABG HCO3 Cancelled ABG Total CO2 Cancelled ABG O2 Saturation Cancelled ABG Base Excess Cancelled VBG pH 7.390 VBG pCO2 67 H VBG pO2 28 L VBG HCO3 41 H VBG Total CO2 42.7 VBG O2 Saturation 52.0 VBG Base Excess 12.8 H O2 Delivery Method Cancelled Nasal cannula, liter Vent Rate Cancelled FiO2 % Cancelled FiO2 (liters per min) Cancelled PEEP Cancelled Inspiratory Pressure Cancelled Pressure Support Cancelled Turbidity Sodium Potassium Chloride Carbon Dioxide Anion Gap BUN Creatinine GFR Calculation BUN/Creatinine Ratio Glucose Glucometer Hemoglobin A1c Calculated Osmolality Calcium Phosphorus Magnesium Icterus Index Troponin I B-Natriuretic Peptide Albumin Specimen Hemolysis 10/08/16 10/08/16 10/08/16 04:34 04:34 11:05 WBC RBC Hgb Hct MCV MCH MCHC RDW Std Deviation Plt Count MPV Immature Gran % (Auto) Neut % (Auto) Lymph % (Auto) [place] % (Auto) Eos % (Auto) Baso % (Auto) Neut # Lymph # [place] # Eos # Baso # Abs Immat Gran (auto) Neutrophils % (Manual) Band Neutrophils % Lymphocytes % (Manual) Neutrophils # (Manual) Band Neutrophils # Lymphocytes # (Manual) RBC Morph Comment D-Dimer Specimen Type ABG pH ABG pCO2 ABG pO2 ABG HCO3 ABG Total CO2 ABG O2 Saturation ABG Base Excess VBG pH VBG pCO2 VBG pO2 VBG HCO3 VBG Total CO2 VBG O2 Saturation VBG Base Excess O2 Delivery Method Vent Rate FiO2 % FiO2 (liters per min) PEEP Inspiratory Pressure Pressure Support Turbidity < 20 Sodium 141 D Potassium 4.0 Chloride 92 L Carbon Dioxide 39 H Anion Gap 10 BUN 15.0 Creatinine 0.7 L GFR Calculation 119 BUN/Creatinine Ratio 21 Glucose 255 H Glucometer 290 Hemoglobin A1c 6.0 L Calculated Osmolality 281 H Calcium 9.4 Phosphorus Magnesium 2.2 Icterus Index < 2 Troponin I B-Natriuretic Peptide Albumin Specimen Hemolysis < 15 10/08/16 10/08/16 10/08/16 16:39 19:11 20:49 WBC RBC Hgb Hct MCV MCH MCHC RDW Std Deviation Plt Count MPV Immature Gran % (Auto) Neut % (Auto) Lymph % (Auto) [place] % (Auto) Eos % (Auto) Baso % (Auto) Neut # Lymph # [place] # Eos # Baso # Abs Immat Gran (auto) Neutrophils % (Manual) Band Neutrophils % Lymphocytes % (Manual) Neutrophils # (Manual) Band Neutrophils # Lymphocytes # (Manual) RBC Morph Comment D-Dimer Specimen Type ABG pH ABG pCO2 ABG pO2 ABG HCO3 ABG Total CO2 ABG O2 Saturation ABG Base Excess VBG pH VBG pCO2 VBG pO2 VBG HCO3 VBG Total CO2 VBG O2 Saturation VBG Base Excess O2 Delivery Method Vent Rate FiO2 % FiO2 (liters per min) PEEP Inspiratory Pressure Pressure Support Turbidity Sodium Potassium Chloride Carbon Dioxide Anion Gap BUN Creatinine GFR Calculation BUN/Creatinine Ratio Glucose Glucometer 199 Hemoglobin A1c Calculated Osmolality Calcium Phosphorus Magnesium Icterus Index Troponin I 0.040 Cancelled B-Natriuretic Peptide Albumin Specimen Hemolysis < 15 Cancelled 10/08/16 10/08/16 10/09/16 21:31 23:54 00:00 WBC 17.1 H D RBC 4.65 Hgb 13.7 Hct 41.8 MCV 89.9 MCH 29.5 MCHC 32.8 RDW Std Deviation 43.2 Plt Count 191 MPV 10.7 Immature Gran % (Auto) Neut % (Auto) Lymph % (Auto) [place] % (Auto) Eos % (Auto) Baso % (Auto) Neut # Lymph # [place] # Eos # Baso # Abs Immat Gran (auto) Neutrophils % (Manual) Band Neutrophils % Lymphocytes % (Manual) Neutrophils # (Manual) Band Neutrophils # Lymphocytes # (Manual) RBC Morph Comment D-Dimer < 150 Specimen Type ABG pH ABG pCO2 ABG pO2 ABG HCO3 ABG Total CO2 ABG O2 Saturation ABG Base Excess VBG pH VBG pCO2 VBG pO2 VBG HCO3 VBG Total CO2 VBG O2 Saturation VBG Base Excess O2 Delivery Method Vent Rate FiO2 % FiO2 (liters per min) PEEP Inspiratory Pressure Pressure Support Turbidity Sodium Potassium Chloride Carbon Dioxide Anion Gap BUN Creatinine GFR Calculation BUN/Creatinine Ratio Glucose Glucometer 279 Hemoglobin A1c Calculated Osmolality Calcium Phosphorus Magnesium Icterus Index Troponin I B-Natriuretic Peptide Albumin Specimen Hemolysis 10/09/16 10/09/16 10/09/16 00:00 00:00 06:21 WBC RBC Hgb Hct MCV MCH MCHC RDW Std Deviation Plt Count MPV Immature Gran % (Auto) Neut % (Auto) Lymph % (Auto) [place] % (Auto) Eos % (Auto) Baso % (Auto) Neut # Lymph # [place] # Eos # Baso # Abs Immat Gran (auto) Neutrophils % (Manual) Band Neutrophils % Lymphocytes % (Manual) Neutrophils # (Manual) Band Neutrophils # Lymphocytes # (Manual) RBC Morph Comment D-Dimer Specimen Type ABG pH ABG pCO2 ABG pO2 ABG HCO3 ABG Total CO2 ABG O2 Saturation ABG Base Excess VBG pH VBG pCO2 VBG pO2 VBG HCO3 VBG Total CO2 VBG O2 Saturation VBG Base Excess O2 Delivery Method Vent Rate FiO2 % FiO2 (liters per min) PEEP Inspiratory Pressure Pressure Support Turbidity < 20 Sodium 138 Potassium 3.9 Chloride 92 L Carbon Dioxide 35 H Anion Gap 11 BUN 22.0 H D Creatinine 0.9 D GFR Calculation 89 BUN/Creatinine Ratio 24 Glucose 249 H Glucometer 202 Hemoglobin A1c Calculated Osmolality 277 Calcium 9.4 Phosphorus 3.2 Magnesium 2.2 Icterus Index < 2 Troponin I 0.036 B-Natriuretic Peptide Albumin 3.9 Specimen Hemolysis < 15 < 15 <Caryl Salas - 10/09/16 13:48> - Imaging and Cardiology Echo: pending <Caryl Salas 10/09/16 13:48> EKG results: image reviewed <Caryl Salas - 10/09/16 13:48> Imaging & Cardiology Narrative: Date of Exam: 10/07/16 Ordering Provider: Yumiko Prakash APRN Type of Exam(s): XR chest 2V Reason for Exam(s): SOA INDICATION: SOA PROCEDURE: CHEST 2-VIEWS UPRIGHT (PA & LAT) Encounter: Initial COMPARISON: April 25, 2016 FINDINGS: The lungs are clear without evidence of focal abnormal airspace opacity. There is no pleural effusion or pneumothorax. The heart size, mediastinal contours and pulmonary vascularity are within normal limits. There is no significant skeletal abnormality. IMPRESSION: No acute cardiopulmonary disease. 10/09/16 13:47 <Caryl Salas - 10/09/16 13:48> - EKG Interpretation EKG: sinus rhythm <Caryl Salas - 10/09/16 13:48> EKG shows: tachycardia <Caryl Salas - 10/09/16 13:48> Assessment and Plan (1) Dilated cardiomyopathy Problem details: EF 30% on TTE done 10/2015; global hypokinesis and dilated LV Status: Acute (2) Hypertension Problem details: Off all medications for > 6 months, uncontrolled Status: Acute (3) Tobacco dependence syndrome Problem details: Ongoing, discussed cessation, unclear how much he is smoking routinely Status: Acute (4) Anxiety Problem details: Severe and chronic, untreated, exacerbated by dyspnea Status : Acute (5) Acute chronic obstructive pulmonary disease with respiratory distress Status: Acute <Lee Merchant - 10/11/16 08:12> (1) Dilated cardiomyopathy Problem details: EF 30% on TTE done 10/2015; global hypokinesis and dilated LV Status: Acute EF improved. Continue low dose Coreg and Lisinopril. (2) Hypertension Problem details: Off all medications for > 6 months, uncontrolled Status: Acute Continue low dose Coreg and Lisinopril. (3) Tobacco dependence syndrome Problem details: Ongoing, discussed cessation, unclear how much he is smoking routinely Status: Acute Encourage cessation, is hopeful to abstain (4) Anxiety Problem details: Severe and chronic, untreated, exacerbated by dyspnea Status : Acute Per attending (5) Acute chronic obstructive pulmonary disease with respiratory distress Status: Acute <Caryl Salas Karlie - 10/10/16 08:36> - Attestation Attestation Narrative: 10/11/16 08:12 Recommendation After examining the patient I agree with the above assessment. I am involved in the formulation of the patient's plan of care. <Lee Merchant - 10/11/16 08:12> Hospital Course Summary Disclaimer: The visit summary below is not to be considered part of the above Progress Note. <Lee Merchant - 10/11/16 08:12> The visit summary below is not to be considered part of the above Progress Note. <Caryl Salas M - 10/09/16 13:48> Hospital Course: 10/07/16 19:27 Assessment: Acute hypoxic respiratory failure on chronic; typically on 3L baseline, primarily secondary to COPD exacerbation in the setting of severe COPD as well as dilated CM. Mild edema but no evidence of volume overload on CXR. Labs diffusely normal. Has been off of all of his medications for > 6 months due to financial issues and cardiac status may have worsened. Has ongoing tobacco dependence as well. No evidence of sepsis or acute infection. Plan: Keep for observation tonight, monitor respiratory status Azithromycin 500 mg po now and daily for inflammation Lasix IV 20 mg x 1 in addition to dose given in ED, monitor weights and I/Os Solumedrol 125 mg IV Q6H acutely for COPD exacerbation Repeat TTE if able in AM for [employer] power [employer] BP; will start lisinopril 10 mg daily for cardiomyopathy and HTN Start beta [place] if able when breathing improved Start ASA 81 mg po daily Duoneb treatments QID and prn albuterol nebulized Ativan 1 mg prn for anxiety Cardiac diet BMP, CBC, lipid panel in AM for surveillance as well as A1C Case management consult to help determine what resources may be available for medications Discussed smoking cessation tonight 10/08/2016 Keep for observation one more night, obtain TTE today and opinion from Dr. Merchant tomorrow Azithromycin 500 mg po daily for airway inflammation, no evidence of acute infection Bumex 1 mg po daily, monitor weights and I/Os closely Stop solumedrol and start prednisone 40 mg po daily Resume cardiac meds with lisinopril, ASA, statin; will start BB when breathing improved Monitor BP and increased meds as needed if remaining elevated Start beta [place] if able when breathing improved Duoneb treatments QID and prn albuterol nebulized Ativan 1 mg TID prn for anxiety Cardiac diet Check lipid panel and A1C for surveillance Case management consult to help determine what resources may be available for medications Discussed smoking cessation again today 10/09/16 EF improved to normal range on echo, see report. Continue low dose Coreg, and Lisinopril. <Caryl Salas - 10/10/16 08:37> Sepsis Assessment - Evaluation Sepsis screening result: No Definite Risk <Caryl Salas - 10/09/16 13:48>
[2016-10-09] MEDS: NICOTINE 21 MG PATCH TD PRN (18:25)
[2016-10-09] MEDS: SIMVASTATIN 20 MG TABLET PO SCH (21:05)
[2016-10-09] MEDS: SALINE FLUSH 10ml SYRINGE IVF PRN (21:05)
[2016-10-10] MEDS: ALBUTEROL/IPRATROPIUM 2.5mg-0.5mg/3ml NEB AEROSOL SCH ×3 (05:15→15:34)
[2016-10-10 07:30] VITALS: BP 157/98; PULSE 95; TEMP 97.2
[2016-10-10] MEDS ORDERED: LISINOPRIL 20 MG TABLET PO SCH (08:28)
[2016-10-10] MEDS: NICOTINE 21 MG PATCH TD PRN (08:30)
[2016-10-10] MEDS: BUMETANIDE 1 MG TABLET PO SCH (08:31)
[2016-10-10] MEDS: ENOXAPARIN 40 MG/0.4 ML INJECTION SQ SCH (08:31)
[2016-10-10] MEDS: LISINOPRIL 20 MG TABLET PO SCH (08:32)
[2016-10-10] MEDS: CARVEDILOL 3.125 MG TABLET PO SCH (08:32)
[2016-10-10] MEDS: SALINE FLUSH 10ml SYRINGE IVF PRN (08:32)
[2016-10-10] MEDS: PredniSONE 20 MG TABLET PO SCH (08:32)
[2016-10-10] MEDS: ASPIRIN *EC* 325 MG TABLET PO SCH (08:32)
[2016-10-10] MEDS: MORPHINE SULFATE 2 MG SYRINGE IVP PRN (08:42)
[2016-10-10] MEDS: LORazepam 1 MG TABLET PO PRN (08:42)
--- NOTE | 2016-10-10 08:42 | Cardiology Progress Note ---
Subjective Principal diagnosis: chest pain <Caryl Salas - 10/10/16 08:43> Interval history: Gray is seen in his room on Medical, his son is at the bedside. He denies chest pain or pressure, palpitations, dyspnea, or cardiac complaints. He wants to go home today. <Caryl Salas - 10/10/16 08:43> Exam Vital signs: Temperature 97.2 F 10/10/16 07:27 Pulse Rate 95 10/10/16 07:27 Respiratory Rate 20 10/10/16 12:35 Blood Pressure 157/98 H 10/10/16 07:27 Pulse Oximetry 93 10/10/16 12:35 Oxygen Delivery Method Nasal Cannula Oxygen Flow Rate 3 Fraction of Inspired Oxygen 3 <Lee Merchant - 10/12/16 13:01> Temperature 97.2 F 10/10/16 07:27 Pulse Rate 95 10/10/16 07:27 Respiratory Rate 18 10/10/16 07:27 Blood Pressure 157/98 H 10/10/16 07:27 Pulse Oximetry 97 10/10/16 07:27 Oxygen Delivery Method Nasal Cannula Oxygen Flow Rate 3 Fraction of Inspired Oxygen 3 <Caryl Salas 10/10/16 08:43> - Constitutional no acute distress, obese, cooperative <Caryl Salas 10/10/16 08:43> - Routine HEENT Exam Head: Present: normocephalic <Caryl Salas 10/10/16 08:43> ENT: Present: mucous membranes moist <Caryl Salas 10/10/16 08:43> - Routine Neck Exam Absent: JVD, carotid bruit <Caryl Salas 10/10/16 08:43> - Routine Chest/Breast/Axilla Exam Chest wall: Absent: tenderness <Caryl Salas 10/10/16 08:43> - Routine Respiratory Exam Present: CTA bilaterally. Absent: rales, wheezes <Caryl Salas 10/10/16 08:43> - Routine Cardiovascular Exam Present: no murmur <Caryl Salas 10/10/16 08:43> - Routine Abdominal Exam Present: soft, normoactive bowel sounds <Caryl Salas 10/10/16 08:43> - Routine Extremities Exam Present: no edema <Caryl Salas - 10/10/16 08:43> - Routine Skin Exam Present: intact, dry, warm <Caryl Salas - 10/10/16 08:43> - Routine Neurological Exam Present: alert, oriented X3 <Caryl Salas - 10/10/16 08:43> - Routine Psychiatric Exam Present: normal affect, normal thought process <Caryl Salas - 10/10/16 08: 43> - Additional findings Additional findings: Laboratory Results - last 72 hr 10/07/16 10/07/16 10/07/16 15:40 15:40 15:40 WBC 10.6 RBC 4.99 Hgb 14.4 Hct 46.3 MCV 92.8 MCH 28.9 MCHC 31.1 RDW Std Deviation 44.0 Plt Count 166 MPV 9.6 Immature Gran % (Auto) 0.1 Neut % (Auto) 74.3 H Lymph % (Auto) 16.5 L [place] % (Auto) 6.9 Eos % (Auto) 1.9 Baso % (Auto) 0.3 Neut # 7.9 H Lymph # 1.8 [place] # 0.7 Eos # 0.2 Baso # 0.0 Abs Immat Gran (auto) 0.01 Neutrophils % (Manual) Band Neutrophils % Lymphocytes % (Manual) Neutrophils # (Manual) Band Neutrophils # Lymphocytes # (Manual) RBC Morph Comment D-Dimer Specimen Type ABG pH ABG pCO2 ABG pO2 ABG HCO3 ABG Total CO2 ABG O2 Saturation ABG Base Excess VBG pH VBG pCO2 VBG pO2 VBG HCO3 VBG Total CO2 VBG O2 Saturation VBG Base Excess O2 Delivery Method Vent Rate FiO2 % FiO2 (liters per min) PEEP Inspiratory Pressure Pressure Support Turbidity < 20 Sodium 147 H Potassium 4.0 Chloride 97 L Carbon Dioxide 39 H Anion Gap 11 BUN 14.0 Creatinine 0.8 GFR Calculation 102 BUN/Creatinine Ratio 18 Glucose 135 H Glucometer Hemoglobin A1c Calculated Osmolality 285 H Calcium 9.2 Phosphorus Magnesium Icterus Index < 2 Troponin I 0.048 B-Natriuretic Peptide 949 H Albumin Triglycerides Cholesterol LDL Cholesterol, Calc VLDL Cholesterol HDL Cholesterol Cholesterol/HDL Ratio Specimen Hemolysis < 15 10/07/16 10/07/16 10/08/16 16:40 16:40 04:34 WBC 9.8 RBC 4.98 Hgb 14.4 Hct 44.9 MCV 90.2 MCH 28.9 MCHC 32.1 RDW Std Deviation 42.2 Plt Count 187 MPV 10.3 Immature Gran % (Auto) Not performed Neut % (Auto) Not performed Lymph % (Auto) Not performed [place] % (Auto) Not performed Eos % (Auto) Not performed Baso % (Auto) Not performed Neut # Not performed Lymph # Not performed [place] # Not performed Eos # Not performed Baso # Not performed Abs Immat Gran (auto) Not performed Neutrophils % (Manual) 94.0 H Band Neutrophils % 1.0 Lymphocytes % (Manual) 5.0 L Neutrophils # (Manual) 9.2 H Band Neutrophils # 0.1 Lymphocytes # (Manual) 0.5 L RBC Morph Comment Normal D-Dimer Specimen Type Cancelled ABG pH Cancelled ABG pCO2 Cancelled ABG pO2 Cancelled ABG HCO3 Cancelled ABG Total CO2 Cancelled ABG O2 Saturation Cancelled ABG Base Excess Cancelled VBG pH 7.390 VBG pCO2 67 H VBG pO2 28 L VBG HCO3 41 H VBG Total CO2 42.7 VBG O2 Saturation 52.0 VBG Base Excess 12.8 H O2 Delivery Method Cancelled Nasal cannula, liter Vent Rate Cancelled FiO2 % Cancelled FiO2 (liters per min) Cancelled PEEP Cancelled Inspiratory Pressure Cancelled Pressure Support Cancelled Turbidity Sodium Potassium Chloride Carbon Dioxide Anion Gap BUN Creatinine GFR Calculation BUN/Creatinine Ratio Glucose Glucometer Hemoglobin A1c Calculated Osmolality Calcium Phosphorus Magnesium Icterus Index Troponin I B-Natriuretic Peptide Albumin Triglycerides Cholesterol LDL Cholesterol, Calc VLDL Cholesterol HDL Cholesterol Cholesterol/HDL Ratio Specimen Hemolysis 10/08/16 10/08/16 10/08/16 04:34 04:34 11:05 WBC RBC Hgb Hct MCV MCH MCHC RDW Std Deviation Plt Count MPV Immature Gran % (Auto) Neut % (Auto) Lymph % (Auto) [place] % (Auto) Eos % (Auto) Baso % (Auto) Neut # Lymph # [place] # Eos # Baso # Abs Immat Gran (auto) Neutrophils % (Manual) Band Neutrophils % Lymphocytes % (Manual) Neutrophils # (Manual) Band Neutrophils # Lymphocytes # (Manual) RBC Morph Comment D-Dimer Specimen Type ABG pH ABG pCO2 ABG pO2 ABG HCO3 ABG Total CO2 ABG O2 Saturation ABG Base Excess VBG pH VBG pCO2 VBG pO2 VBG HCO3 VBG Total CO2 VBG O2 Saturation VBG Base Excess O2 Delivery Method Vent Rate FiO2 % FiO2 (liters per min) PEEP Inspiratory Pressure Pressure Support Turbidity < 20 Sodium 141 D Potassium 4.0 Chloride 92 L Carbon Dioxide 39 H Anion Gap 10 BUN 15.0 Creatinine 0.7 L GFR Calculation 119 BUN/Creatinine Ratio 21 Glucose 255 H Glucometer 290 Hemoglobin A1c 6.0 L Calculated Osmolality 281 H Calcium 9.4 Phosphorus Magnesium 2.2 Icterus Index < 2 Troponin I B-Natriuretic Peptide Albumin Triglycerides Cholesterol LDL Cholesterol, Calc VLDL Cholesterol HDL Cholesterol Cholesterol/HDL Ratio Specimen Hemolysis < 15 10/08/16 10/08/16 10/08/16 16:39 19:11 20:49 WBC RBC Hgb Hct MCV MCH MCHC RDW Std Deviation Plt Count MPV Immature Gran % (Auto) Neut % (Auto) Lymph % (Auto) [place] % (Auto) Eos % (Auto) Baso % (Auto) Neut # Lymph # [place] # Eos # Baso # Abs Immat Gran (auto) Neutrophils % (Manual) Band Neutrophils % Lymphocytes % (Manual) Neutrophils # (Manual) Band Neutrophils # Lymphocytes # (Manual) RBC Morph Comment D-Dimer Specimen Type ABG pH ABG pCO2 ABG pO2 ABG HCO3 ABG Total CO2 ABG O2 Saturation ABG Base Excess VBG pH VBG pCO2 VBG pO2 VBG HCO3 VBG Total CO2 VBG O2 Saturation VBG Base Excess O2 Delivery Method Vent Rate FiO2 % FiO2 (liters per min) PEEP Inspiratory Pressure Pressure Support Turbidity Sodium Potassium Chloride Carbon Dioxide Anion Gap BUN Creatinine GFR Calculation BUN/Creatinine Ratio Glucose Glucometer 199 Hemoglobin A1c Calculated Osmolality Calcium Phosphorus Magnesium Icterus Index Troponin I 0.040 Cancelled B-Natriuretic Peptide Albumin Triglycerides Cholesterol LDL Cholesterol, Calc VLDL Cholesterol HDL Cholesterol Cholesterol/HDL Ratio Specimen Hemolysis < 15 Cancelled 10/08/16 10/08/16 10/09/16 21:31 23:54 00:00 WBC 17.1 H D RBC 4.65 Hgb 13.7 Hct 41.8 MCV 89.9 MCH 29.5 MCHC 32.8 RDW Std Deviation 43.2 Plt Count 191 MPV 10.7 Immature Gran % (Auto) Neut % (Auto) Lymph % (Auto) [place] % (Auto) Eos % (Auto) Baso % (Auto) Neut # Lymph # [place] # Eos # Baso # Abs Immat Gran (auto) Neutrophils % (Manual) Band Neutrophils % Lymphocytes % (Manual) Neutrophils # (Manual) Band Neutrophils # Lymphocytes # (Manual) RBC Morph Comment D-Dimer < 150 Specimen Type ABG pH ABG pCO2 ABG pO2 ABG HCO3 ABG Total CO2 ABG O2 Saturation ABG Base Excess VBG pH VBG pCO2 VBG pO2 VBG HCO3 VBG Total CO2 VBG O2 Saturation VBG Base Excess O2 Delivery Method Vent Rate FiO2 % FiO2 (liters per min) PEEP Inspiratory Pressure Pressure Support Turbidity Sodium Potassium Chloride Carbon Dioxide Anion Gap BUN Creatinine GFR Calculation BUN/Creatinine Ratio Glucose Glucometer 279 Hemoglobin A1c Calculated Osmolality Calcium Phosphorus Magnesium Icterus Index Troponin I B-Natriuretic Peptide Albumin Triglycerides Cholesterol LDL Cholesterol, Calc VLDL Cholesterol HDL Cholesterol Cholesterol/HDL Ratio Specimen Hemolysis 10/09/16 10/09/16 10/09/16 00:00 00:00 00:00 WBC RBC Hgb Hct MCV MCH MCHC RDW Std Deviation Plt Count MPV Immature Gran % (Auto) Neut % (Auto) Lymph % (Auto) [place] % (Auto) Eos % (Auto) Baso % (Auto) Neut # Lymph # [place] # Eos # Baso # Abs Immat Gran (auto) Neutrophils % (Manual) Band Neutrophils % Lymphocytes % (Manual) Neutrophils # (Manual) Band Neutrophils # Lymphocytes # (Manual) RBC Morph Comment D-Dimer Specimen Type ABG pH ABG pCO2 ABG pO2 ABG HCO3 ABG Total CO2 ABG O2 Saturation ABG Base Excess VBG pH VBG pCO2 VBG pO2 VBG HCO3 VBG Total CO2 VBG O2 Saturation VBG Base Excess O2 Delivery Method Vent Rate FiO2 % FiO2 (liters per min) PEEP Inspiratory Pressure Pressure Support Turbidity < 20 Sodium 138 Potassium 3.9 Chloride 92 L Carbon Dioxide 35 H Anion Gap 11 BUN 22.0 H D Creatinine 0.9 D GFR Calculation 89 BUN/Creatinine Ratio 24 Glucose 249 H Glucometer Hemoglobin A1c Calculated Osmolality 277 Calcium 9.4 Phosphorus 3.2 Magnesium 2.2 Icterus Index < 2 Troponin I 0.036 B-Natriuretic Peptide Albumin 3.9 Triglycerides 89 Cholesterol 235 H LDL Cholesterol, Calc 170.2 H VLDL Cholesterol 17.8 HDL Cholesterol 47 Cholesterol/HDL Ratio 5.0 Specimen Hemolysis < 15 < 15 10/09/16 10/09/16 10/09/16 06:21 11:50 17:28 WBC RBC Hgb Hct MCV MCH MCHC RDW Std Deviation Plt Count MPV Immature Gran % (Auto) Neut % (Auto) Lymph % (Auto) [place] % (Auto) Eos % (Auto) Baso % (Auto) Neut # Lymph # [place] # Eos # Baso # Abs Immat Gran (auto) Neutrophils % (Manual) Band Neutrophils % Lymphocytes % (Manual) Neutrophils # (Manual) Band Neutrophils # Lymphocytes # (Manual) RBC Morph Comment D-Dimer Specimen Type ABG pH ABG pCO2 ABG pO2 ABG HCO3 ABG Total CO2 ABG O2 Saturation ABG Base Excess VBG pH VBG pCO2 VBG pO2 VBG HCO3 VBG Total CO2 VBG O2 Saturation VBG Base Excess O2 Delivery Method Vent Rate FiO2 % FiO2 (liters per min) PEEP Inspiratory Pressure Pressure Support Turbidity Sodium Potassium Chloride Carbon Dioxide Anion Gap BUN Creatinine GFR Calculation BUN/Creatinine Ratio Glucose Glucometer 202 182 163 Hemoglobin A1c Calculated Osmolality Calcium Phosphorus Magnesium Icterus Index Troponin I B-Natriuretic Peptide Albumin Triglycerides Cholesterol LDL Cholesterol, Calc VLDL Cholesterol HDL Cholesterol Cholesterol/HDL Ratio Specimen Hemolysis 10/09/16 10/10/16 10/10/16 21:02 04:41 06:02 WBC RBC Hgb Hct MCV MCH MCHC RDW Std Deviation Plt Count MPV Immature Gran % (Auto) Neut % (Auto) Lymph % (Auto) [place] % (Auto) Eos % (Auto) Baso % (Auto) Neut # Lymph # [place] # Eos # Baso # Abs Immat Gran (auto) Neutrophils % (Manual) Band Neutrophils % Lymphocytes % (Manual) Neutrophils # (Manual) Band Neutrophils # Lymphocytes # (Manual) RBC Morph Comment D-Dimer Specimen Type ABG pH ABG pCO2 ABG pO2 ABG HCO3 ABG Total CO2 ABG O2 Saturation ABG Base Excess VBG pH VBG pCO2 VBG pO2 VBG HCO3 VBG Total CO2 VBG O2 Saturation VBG Base Excess O2 Delivery Method Vent Rate FiO2 % FiO2 (liters per min) PEEP Inspiratory Pressure Pressure Support Turbidity < 20 Sodium 139 Potassium 3.4 L Chloride 95 L Carbon Dioxide 39 H Anion Gap 5 BUN 24.0 H Creatinine 0.8 GFR Calculation 102 BUN/Creatinine Ratio 30 H Glucose 104 Glucometer 286 108 Hemoglobin A1c Calculated Osmolality 272 Calcium 8.5 D Phosphorus Magnesium 2.3 Icterus Index < 2 Troponin I B-Natriuretic Peptide Albumin Triglycerides Cholesterol LDL Cholesterol, Calc VLDL Cholesterol HDL Cholesterol Cholesterol/HDL Ratio Specimen Hemolysis < 15 Acetaminophen (Tylenol) 325 - 650 mg PO Q5HR PRN PRN Reason: Discomfort Last Admin: 10/08/16 19:24 Dose: 650 mg Albuterol Sulfate (Proventil Neb (0.083%)) 2.5 mg AEROSOL Q6H PRN PRN Reason: Respiratory distress Albuterol/Ipratropium (Duoneb) 3 ml AEROSOL QID [facility] Last Admin: 10/10/16 05:15 Dose: 3 ml Aspirin (Ecotrin) 325 mg PO DAILY [facility] Last Admin: 10/10/16 08:32 Dose: 325 mg Azithromycin (Zithromax Eqv.) 250 mg PO DAILY [facility] Last Admin: 10/10/16 08:31 Dose: 250 mg Budesonide (Pulmicort Inhalation) 0.5 mg AEROSOL RTBID [facility] Last Admin: 10/09/16 20:00 Dose: 0.5 mg Calcium Carbonate (Tums) 1,000 mg PO Q4H PRN PRN Reason: DYSPEPSIA Carvedilol (Coreg) 3.125 mg PO BIDWM [facility] Last Admin: 10/10/16 08:32 Dose: 3.125 mg Enoxaparin Sodium (Lovenox) 40 mg SQ DAILY [facility] Last Admin: 10/10/16 08:31 Dose: 40 mg Insulin Aspart (Novolog) 0 unit SQ SS PRN; Protocol PRN Reason: Hyperglycemia Last Admin: 10/09/16 23:07 Dose: 3 unit Lisinopril (Prinivil) 40 mg PO DAILY [facility] Lorazepam (Ativan) 1 mg PO TID PRN PRN Reason: Air hunger/Anxiety Last Admin: 10/09/16 23:07 Dose: 1 mg Morphine Sulfate (Morphine Sulfate Inj) 2 mg IVP Q1H PRN PRN Reason: Pain Last Admin: 10/09/16 23:05 Dose: 2 mg Nicotine (Nicoderm) 21 mg TD DAILY PRN Last Admin: 10/10/16 08:30 Dose: 21 mg Nicotine (Nicotine Patch Removal) 1 removal TD DAILY PRN Nitroglycerin (Nitrostat) 0.4 mg SL Q5M PRN PRN Reason: Chest pain Last Admin: 10/08/16 19:09 Dose: 0.4 mg Ondansetron HCl (Zofran) 4 mg IVP Q6H PRN PRN Reason: Nausea &/or vomiting Prednisone (Deltasone) 40 mg PO WB [facility] Last Admin: 10/10/16 08:32 Dose: 40 mg Senna (Senna Lax) 17.2 mg PO HS PRN PRN Reason: Constipation Sertraline HCl (Zoloft) 25 mg PO DAILY [facility] Last Admin: 10/10/16 08:32 Dose: 25 mg Simvastatin (Zocor) 20 mg PO HS [facility] Last Admin: 10/09/16 21:05 Dose: 20 mg Sodium Chloride (Iv Flush) 10 - 80 ml IVF PRN PRN PRN Reason: Flushing Last Admin: 10/10/16 08:32 Dose: 10 ml <Caryl Salas - 10/10/16 08:43> Progress Note-A&P (1) Dilated cardiomyopathy Problem details: EF 30% on TTE done 10/2015; global hypokinesis and dilated LV Status: Acute (2) Hypertension Problem details: Off all medications for > 6 months, uncontrolled Status: Acute (3) Tobacco dependence syndrome Problem details: Ongoing, discussed cessation, unclear how much he is smoking routinely Status: Acute (4) Anxiety Problem details: Severe and chronic, untreated, exacerbated by dyspnea Status : Acute (5) Acute chronic obstructive pulmonary disease with respiratory distress Status: Acute <Lee Merchant - 10/12/16 13:01> (1) Dilated cardiomyopathy Problem details: EF 30% on TTE done 10/2015; global hypokinesis and dilated LV Status: Acute (2) Hypertension Problem details: Off all medications for > 6 months, uncontrolled Status: Acute Assessment and plan: suboptimal control. Increase Lisinopril to 40mg daily. Stop Bumex. (3) Tobacco dependence syndrome Problem details: Ongoing, discussed cessation, unclear how much he is smoking routinely Status: Acute (4) Anxiety Problem details: Severe and chronic, untreated, exacerbated by dyspnea Status : Acute (5) Acute chronic obstructive pulmonary disease with respiratory distress Status: Acute <Caryl Salas - 10/12/16 10:48> - Time Spent With Patient Total time spent is greater than 50% in coordination of care (as documented) at patient's floor/unit and/or counseling patient: <Lee Merchant - 10/12/16 13:01> Total time spent is greater than 50% in coordination of care (as documented) at patient's floor/unit and/or counseling patient: <Caryl Salas - 10/10/16 08:43> less than 15 minutes <Caryl Salas - 10/12/16 10:48> - Attestation Attestation Narrative: Recommendation After examining the patient I agree with the above assessment. I am involved in the formulation of the patient's plan of care. <ShondaMikhailLee - 10/12/16 13:01> Sepsis Assessment - Evaluation Sepsis screening result: No Definite Risk <Caryl Salas - 10/10/16 08:43> Hospital Course Summary Disclaimer: The visit summary below is not to be considered part of the above Progress Note. <RachelearnavLee calixto - 10/12/16 13:01> The visit summary below is not to be considered part of the above Progress Note. <Caryl Salas - 10/10/16 08:43> Hospital Course: 10/07/16 19:27 Assessment: Acute hypoxic respiratory failure on chronic; typically on 3L baseline, primarily secondary to COPD exacerbation in the setting of severe COPD as well as dilated CM. Mild edema but no evidence of volume overload on CXR. Labs diffusely normal. Has been off of all of his medications for > 6 months due to financial issues and cardiac status may have worsened. Has ongoing tobacco dependence as well. No evidence of sepsis or acute infection. 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 Merchant tomorrow Azithromycin 500 mg po daily for airway inflammation, no evidence of acute infection Bumex 1 mg po daily, monitor weights and I/Os closely Stop solumedrol and start prednisone 40 mg po daily Resume cardiac meds with lisinopril, ASA, statin; will start BB when breathing improved Monitor BP and increased meds as needed if remaining elevated Start beta [place] if able when breathing improved Duoneb treatments QID and prn albuterol nebulized Ativan 1 mg TID prn for anxiety Cardiac diet Check lipid panel and A1C for surveillance Case management consult to help determine what resources may be available for medications Discussed smoking cessation again today 10/09/16 EF improved to normal range on echo, see report. Continue low dose Coreg, and Lisinopril. 10/10/16 08:42 Stop Bumex. Increase Lisinopril to 40mg daily for better BP control. <Caryl Salas - 10/10/16 08:43>
[2016-10-10] MEDS ORDERED: SERTRALINE 25 MG TABLET PO SCH (09:00)
[2016-10-10] MEDS ORDERED: AZITHROMYCIN 250 MG TABLET PO SCH (09:00)
--- NOTE | 2016-10-10 09:07 | Echocardiogram ---
DATE OF PROCEDURE October 08, [address] Jessica Desai This is a two-dimensional echo with spectral Doppler, color-flow and M-mode. It was obtained in a patient with congestive heart failure. Left atrium is dilated. Left ventricle end-diastolic dimension is increased. Left ventricle wall thickness is increased. LV systolic function is normal with ejection fraction of 55%. Right atrium is dilated. Right ventricle is normal. Aortic root dimension is normal. Mitral valve is morphologically normal with mild mitral regurgitation. Aortic valve appears to be normal. Tricuspid valve shows mild tricuspid regurgitation with moderate pulmonary hypertension with estimated pulmonary artery systolic pressure of 48. Pulmonary valve shows trace of pulmonary insufficiency. There is no pericardial effusion. IMPRESSION 1. Normal LV systolic function with ejection fraction of 55%. 2. Mild left ventricular dilation. 3. Biatrial dilation. 4. Left ventricular hypertrophy. 5. Mild mitral regurgitation. 6. Mild tricuspid regurgitation with moderate pulmonary hypertension with estimated pulmonary artery systolic pressure of 48. 7. Trace of pulmonary insufficiency. MTDD
[2016-10-10] MEDS: BUDESONIDE INH.SOLN 0.5mg/2ml NEB AEROSOL SCH (09:23)
[2016-10-10] MEDS ORDERED: CARVEDILOL 6.25 MG TABLET PO SCH (09:32)
[2016-10-10] MEDS: INSULIN ASPART 100unit/ml INJECTION SQ PRN (11:59)
[2016-10-10 12:49] VITALS: RESP 20; O2SAT 93
--- NOTE | 2016-10-10 13:06 | Discharge Instructions ---
Discharge Plan - Med Rec/Dispo Nancy Instructions: COPD (Chronic Obstructive Pulmonary Disease) (GEN) Prescriptions: New Ipratropium Inhal Neb 0.02% [Atrovent (0.02%)] 0.5 mg AEROSOL QID PRN #100 neb PRN Reason: Shortness Of Air/Wheezing LORazepam [Ativan] 1 mg PO TID PRN #20 tablet PRN Reason: Air Hunger/Anxiety PredniSONE [Deltasone] 40 mg PO WB #10 tablet Simvastatin [Zocor] 20 mg PO HS #30 tab Lisinopril [Prinivil] 20 mg PO DAILY #30 tab Albuterol Neb (0.083%) [Proventil Neb (0.083%)] 2.5 mg AEROSOL QID PRN #100 neb PRN Reason: Shortness Of Air/Wheezing Aspirin [Adult Low Dose Aspirin EC] 81 mg PO DAILY #100 tablet. Metoprolol Tartrate [Lopressor] 25 mg PO BIDWM #60 tab Sertraline [Zoloft] 50 mg PO DAILY #30 tablet Discharge Instructions/Outpatient Orders: Final Provider Discharge Instructions Location: Determined By Patient - Disposition 01 Discharged Home, Self-Care
--- NOTE | 2016-10-10 18:30 | Discharge Summary ---
Discharge Information Date of admission: 10/09/16 14:23 Anticipated date of discharge: 10/10/16 Attending Physician: Melissa Ramírez MD Primary care physician: Gray Rueda DO Consults: Lee Merchant M.D. - Discharge Diagnosis Discharge Diagnosis: COPD with acute exacerbation Acute on chronic respiratory failure with hypoxia and hypercarbia Anxiety/depression Hypertension Hypercholesterolemia Atypical chest pain Hypernatremia Hypokalemia Chronic metabolic alkalosis History dilated cardiomyopathy Moderate pulmonary hypertension - Procedures Procedures: Echocardiogram on 10/08/16: Left atrium is dilated. Left ventricle end-diastolic dimension is increased. Left ventricle wall thickness is increased. LV systolic function is normal with ejection fraction of 55%. Right atrium is dilated. Right ventricle is normal. Aortic root dimension is normal. Mitral valve is morphologically normal with mild mitral regurgitation. Aortic valve appears to be normal. Tricuspid valve shows mild tricuspid regurgitation with moderate pulmonary hypertension with estimated pulmonary artery systolic pressure of 48. Pulmonary valve shows trace of pulmonary insufficiency. There is no pericardial effusion. IMPRESSION 1. Normal LV systolic function with ejection fraction of 55%. 2. Mild left ventricular dilation. 3. Biatrial dilation. 4. Left ventricular hypertrophy. 5. Mild mitral regurgitation. 6. Mild tricuspid regurgitation with moderate pulmonary hypertension with estimated pulmonary artery systolic pressure of 48. 7. Trace of pulmonary insufficiency. - Laboratory Labs: On admission (10/07/16) white count 10.6, hemoglobin 14.4, platelet count 166, 000. Venous blood gas 7.39/67/28/41 Sodium 147, BUN 14, creatinine 0.8, proBNP 949, and troponin 0.036 Additional studies obtained during hospitalization included total cholesterol 235, LDL 170.2, HDL 47, triglycerides 89. A1c 6.0. D-dimer<150. 10/10/16 04:41 - Radiology Radiology: Chest x-ray on admission demonstrated clear lung park without focal abnormality. Heart size was within normal limits although borderline enlarged by my review. History of Present Illness HPI: Mr. Antonio is a 51-year-old gentleman with multiple chronic medical conditions including dilated CM and previous TTE in October 2015 with EF of 30%, global hypokinesis, dilated LV. He had a cardiac cath in 2014 with normal coronary arteries. He was admitted here one year ago with chest pain and dyspnea as well as agitation and anxiety and improved with treatment of COPD and heart failure. He does have significant COPD, continued tobacco dependence and HTN as well as severe anxiety. He has not taken any prescribed medications for the past 6 months or so, is recently and on disability due to his medical issues but is not yet receiving medical benefits so has no insurance at this time. He has not seen his PCP recently, but he is on 3L of 02 chronically at home (continuous). He has been more short of air the last week, to the point where he is barely smoking. He presented to the ED today and is improved after duoneb treatments, IV solumedrol and a dose of lasix 40 mg IV x1 but still very dyspneic with speech. His primary concern currently is his anxiety; he feels like he cannot calm down. He remains tachypneic and tachycardic. His son and his mom are here with him at the bedside. He is worried about his cardiac function, has not seen Dr. Merchant recently and has been off of all his medications as above. He feels his weights have gone up a little and he feels "puffy". Hospital Course This is a general summary of the patient's hospital course. For more details refer to the complete medical record. Hospital course: Mr. Griffin was hospitalized on 10/07 with acute on chronic hypoxic/ hypercarbic respiratory failure. He described increased dyspnea and has known underlying severe oxygen dependent COPD. Chest x-ray was unremarkable although there was mild edema on examination. Patient been off all medications for more than 6 months at the time of presentation. Treatment was initiated for COPD exacerbation with azithromycin, aggressive DuoNeb therapy, and Solu-Medrol. Steroids were converted to oral administration the following day. Azithromycin was continued throughout the hospitalization but discontinued at discharge. Oxygen was continued at home flow rate of 3 L/m throughout the hospitalization. Diuresis was additionally initiated on admission due to patient's history of dilated cardiomyopathy and given elevated BNP although chest x-ray did not reveal overt evidence of heart failure. Carvedilol, lisinopril, and aspirin were resumed for management of CHF and hypertension. Prior to discharge carvedilol was converted to metoprolol after repeat echocardiogram demonstrated normalization of ejection fraction at 55% compared to his last echo. Dr. Merchant was consulted during the hospitalization and following results of echocardiogram recommended improved blood pressure control and lipid lowering therapy as primary intervention to prevent recurrent cardiac complications. Anxiety was evident throughout the hospitalization and patient acknowledged depressive symptoms. He recognized the correlation between anxiety and the chest discomfort/chest pain he described. Lorazepam provided short-term relief. Sertraline was initiated at 50 mg daily for longer-term management of anxiety and depression. Mild hyperglycemia developed with steroids that required corrective insulin during hospitalization but is not anticipated to be an ongoing problem as A1c was minimally elevated at 6.0. Tobacco cessation was counseled throughout the hospitalization. Case management and social work were consulted to assist patient with multiple needs due to lack of medical insurance. On 10/10 the patient was felt stable for discharge. He was ambulating on supplemental oxygen without difficulty. Patient reported that his breathing was significantly improved compared to admission but described continued anxiety with associated chest discomfort which he attributed to situational stress of a divorce. On examination the patient was in no distress and was lying flat in bed when I initially saw him. Respirations were nonlabored with decreased airflow but clear breath sounds throughout; there is no wheezing and no crackles present. Cardiac exam is regular without gallop. Trace edema remains present at both ankles. Patient is felt stable for discharge at this time on short course tapering prednisone for COPD exacerbation, continued albuterol/ipratropium prn, and combination of metoprolol, lisinopril, simvastatin, and aspirin. Additionally he was started on sertraline for depression/anxiety and given a prescription for small number of lorazepam for short-term use. He is asked to follow up with Dr. Rueda in 1-2 weeks for reassessment and to maintain current prescriptions. Case management assisted in providing financial resources so prescriptions could be filled on the date of discharge. Time spent with patient: discharge greater than 30 minutes Discharge Plan - Med Rec/Dispo Truven Instructions: COPD (Chronic Obstructive Pulmonary Disease) (GEN) Prescriptions: New Ipratropium Inhal Neb 0.02% [Atrovent (0.02%)] 0.5 mg AEROSOL QID PRN #100 neb PRN Reason: Shortness Of Air/Wheezing LORazepam [Ativan] 1 mg PO TID PRN #20 tablet PRN Reason: Air Hunger/Anxiety PredniSONE [Deltasone] 40 mg PO WB #10 tablet Simvastatin [Zocor] 20 mg PO HS #30 tab Lisinopril [Prinivil] 20 mg PO DAILY #30 tab Albuterol Neb (0.083%) [Proventil Neb (0.083%)] 2.5 mg AEROSOL QID PRN #100 neb PRN Reason: Shortness Of Air/Wheezing Aspirin [Adult Low Dose Aspirin EC] 81 mg PO DAILY #100 tablet. Metoprolol Tartrate [Lopressor] 25 mg PO BIDWM #60 tab Sertraline [Zoloft] 50 mg PO DAILY #30 tablet Discharge Instructions/Outpatient Orders: Final Provider Discharge Instructions Location: Determined By Patient - Disposition 01 Discharged Home, Self-Care
--- NOTE | 2016-10-11 10:19 | Right on Track Program ---
Right on Track Program Date of Discharge: 10/10/16 Home Medications: Previous Rx's Medication Instructions Recorded Albuterol Neb (0.083%) [Proventil 2.5 mg AEROSOL QID PRN #100 neb 10/10/16 Neb (0.083%)] Aspirin [Adult Low Dose Aspirin EC] 81 mg PO DAILY #100 tablet. 10/10/16 Ipratropium Inhal Neb 0.02% 0.5 mg AEROSOL QID PRN #100 neb 10/10/16 [Atrovent (0.02%) Nebulizer] LORazepam [Ativan] 1 mg PO TID PRN #20 tablet 10/10/16 Lisinopril [Prinivil] 20 mg PO DAILY #30 tab 10/10/16 Metoprolol Tartrate [Lopressor] 25 mg PO BIDWM #60 tab 10/10/16 PredniSONE [Deltasone] 40 mg PO WB #10 tablet 10/10/16 Sertraline [Zoloft] 50 mg PO DAILY #30 tablet 10/10/16 Simvastatin [Zocor] 20 mg PO HS #30 tab 10/10/16 - Right on Track Program PHONE CALL #1 Date: 10/11/16 Right on Track Program: 24 Hour Follow-Up Discharge Summary Received: Yes Care Plan Received: Yes Referral: Social Work, Primary Care Physician Comments: I called Gray on 10/11/16 for the 24-hour f/u call. He did not answer, and I left a message inquiring about his new Rx, symptoms, and reminder to make f/u appt with Dr. Rueda. In addition, I let him know that he left some items in his hospital room (movie, 2 cans of corn, his hospital folder). I gave him my contact number so we can discuss any concerns at a time convenient for him. PHONE CALL #2 Date: 10/17/16 Comments: I attempted calling Gray again on 10/17/16. I left a message, inquiring about f/ u with Dr. Rueda and about questions on new medications. I gave him my contact number here at the hospital. I reminded him that I still have his bag of belongings from his hospitalization, and can deliver to the front end loader operator if he wishes to stop by and pick it up.
== END 2016-10-10 15:30 | disposition home or self-care (01) | DRG 190 ==
LOC: ED 15:09 → MED 15:09
PROVIDERS: ADMIT Internal Medicine; ATTEND Internal Medicine

== ENCOUNTER 2017-04-29 20:42 | Inpatient (IN) ==
--- OUTSIDE RECORDS SUMMARY | 2017-04-29 20:50 | External Medical Summary ---
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 Problem Personal history of nicotine Z87.891 Active dependence Problem Diabetes mellitus due to underlying E08.40 Active condition with diabetic neuropathy, unspecified Problem Atopic dermatitis, unspecified L20.9 Active Problem Unspecified systolic (congestive) I50.20 Active heart failure Problem Chronic obstructive pulmonary J44.9 Active disease, unspecified Problem Sleep apnea, unspecified G47.30 Active Problem Type 2 diabetes mellitus without E11.9 Active complications Problem Morbid (severe) obesity due to E66.01 Active excess calories Medications Medication Code System Code Instructions Start Date End Date Status Dosage Nitrostat [facility] 55264-048 0.4 MG Sublingual 1 tablet 8-13 every 5 min x 3 under the doses as needed tongue and for chest pain. allow to if chest pain dissolve call 911 Results No Known Results Summary Purpose [employer] Submission
--- OUTSIDE RECORDS SUMMARY | 2017-04-29 20:50 | External Medical Summary ---
:1965 Author Organization [employer] Care Team Providers Name Role Phone Gray Rueda Provider Role Unavailable Allergies No Known Allergies Problems Problem Type Condition ICD-9 Code Onset Dates Condition Status Problem Tobacco abuse V15.82 Active Problem Major depressive disorder, 296.32 Active recurrent episode, moderate Problem Polyneuropathy in diabetes 357.2 Active Problem COPD 496 Active Problem Congestive heart failure, 428.0 Active unspecified Problem Hypertension, benign 401.1 Active Problem Sleep apnea 327.20 Active Problem Generalized anxiety disorder 300.02 Active Problem Diabetes Mellitus Type 2, not 250.00 Active stated as uncontrolled Problem Morbid obesity 278.01 Active Problem 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, type II or unspecified type, not stated as uncontrolled Problem Hypertension, benign 401.1 Active Problem Other specified disease of nail 703.8 Active Problem Degeneration of lumbar or 722.52 Active lumbosacral intervertebral disc Problem Eczema 691.8 Active Problem Hypercholesterolemia 272.2 Active Medications No Known Medications Results No Known Results Summary Purpose [employer] Submission
--- OUTSIDE RECORDS SUMMARY | 2017-04-29 20:50 | External Medical Summary ---
[...] due to E66.01 Active excess calories Medications No Known Medications Results No Known Results Summary Purpose [employer] Submission
--- OUTSIDE RECORDS SUMMARY | 2017-04-29 20:50 | External Medical Summary ---
[...] Medications Results No Known Results Summary Purpose [employer] Submission
--- OUTSIDE RECORDS SUMMARY | 2017-04-29 20:50 | External Medical Summary ---
[...] Instructions Start Date End Date Status Dosage Wheelchair [facility] 42373-705 1 Dx: J44.9, Jan 13, as directed 52 I50.20 2014 Ibuprofen [facility] 54289-351 200 MG Orally Jan 13, Feb 12, 1 tablet as 4-71 every 8 hrs, do 2014 2014 needed not take for more than 1 week at a time Results No Known Results Summary Purpose [employer] Submission
--- OUTSIDE RECORDS SUMMARY | 2017-04-29 20:50 | External Medical Summary ---
:1965 Author Organization [employer] Care Team Providers Name Role Phone Gray Rueda Provider Role Unavailable Allergies, Adverse Reactions, Alerts Substance Reaction Event Type N.K.D.A. Info Not Available Non Drug Allergy Problems Problem Type Condition Code Onset Dates Condition Status Problem Hypercholesterolemia 272.2 Active Problem Polyneuropathy in diabetes 357.2 Active Problem Tobacco abuse V15.82 Active Problem Congestive heart failure, 428.0 Active unspecified Assessment Diabetes Mellitus Type 2, not stated 250.00 Active as uncontrolled Problem Diabetes Mellitus Type 2, not stated 250.00 Active as uncontrolled Problem COPD 496 Active Problem Generalized anxiety disorder 300.02 Active Problem Major depressive disorder, recurrent 296.32 Active episode, moderate Problem Morbid obesity 278.01 Active Problem Sleep apnea 327.20 Active Assessment Chest pain, other 786.59 Active Assessment Shortness of breath 786.05 Active Assessment Congestive heart failure, 428.0 Active unspecified Assessment Unspecified tachycardia 785.0 Active Problem Eczema 691.8 Active Problem 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, type II or unspecified type, not stated as uncontrolled Assessment COPD 496 Active Problem Hypertension, benign 401.1 Active Problem Other specified disease of nail 703.8 Active Problem Degeneration of lumbar or 722.52 Active lumbosacral intervertebral disc Medications Medication Code Code Instructions Start End Status Dosage System Date Cymbalta [facility] 53660-3 60 MG Orally 1 capsule 237-01 [place] [address]-2 20 MG Orally 2 tablet 268-01 [place] [address]-0 500-50 MCG/DOSE 1 puff 697-00 Inhalation Twice a day [place] NDC 29505-5 10 MEQ Orally July 15, July 22, 1 tablet 043-00 Twice a day 2014 2014 [place] [address]-0 0.02 % Oct 22, Jan 11, as 989-62 Inhalation 2013 2014 directed every 6 hours as needed for COPD. ProAir HFA [facility] 39729-4 108 (90 Base) Sept 26, 2 puffs as 851-85 MCG/ACT 2012 needed Inhalation every 4 hrs PredniSONE NDC 94408-2 10 MG Orally July 15, July 18, 6 tabs 017-20 2014 2014 daily x3 days, then 4 tabs daily x3 days, then 3 tabs daily x3 days, then 2 tabs daily x3 days, then 1 tab daily x3 day Albuterol Sulfate NDC 01597-8 (2.5 MG/3ML) Oct 22, 3 ml 990-52 0.083% 2013 Inhalation every 6 hrs as needed for COPD Ethan Dumont NDC 89632-7 100 MG Orally July 15September 09 capsule 122-01 Three times a 2014 07, as needed day as needed 2014 for cough/congestio n Levaquin NDC 42093-9 500 MG Orally July 15, July 22, 1 tablet 525-10 Once a day 2014 2014 Hydrochlorothiazide NDC 00312-8 25 MG Orally 1 capsule 256-01 Once a day Lasix NDC 25804-9 40 MG Orally July 15, 1 tablet 060-13 every 12 hours 2014 NIFEdipine ER NDC 12145-1 60 MG Orally 1 tablet 058-01 Once a day Nitrostat NDC 92842-9 0.4 MG 1 tablet 418-13 Sublingual under the every 0 hrs tongue and allow to dissolve as needed Clonidine HCl NDC 00127-9 0.2 MG Orally Apr 28, 1 tablet 128-10 BID 2013 Procedures Procedure Coding System Code Date COMPREHENSIVE METABOLIC PANEL CPT-4 99755 July 15, 2014 TSH CPT-4 01219 July 15, 2014 COMPLETE CBC W/AUTO DIFF WBC CPT-4 50935 July 15, 2014 HEMOGLOBIN AIC CPT-4 64147 July 15, 2014 OFFICE VISIT, EST-MOD. COMPLEXITY (25 MIN) CPT-4 95049 July 15, 2014 D DIMER QUANT CPT-4 89036 July 15, 2014 URINALYSIS, IN HOUSE CPT-4 75511 July 15, 2014 CREATINE KINASE (CPK) CPT-4 26283 July 15, 2014 TROPONIN CPT-4 92444 July 15, 2014 Vital Signs Date/Time: July 15, 2014 Height 69 in Weight 299.8 lbs Temperature 97.8 F Blood Pressure Diastolic 108 mm Hg Blood Pressure Systolic 148 mm Hg Cardiac Monitoring Heart Rate 112 /min BMI 44.27 Index Oximetry 97 % Respiratory Rate 26 /min Results No Known Results Summary Purpose [employer]ClinicalWorks Submission
--- OUTSIDE RECORDS SUMMARY | 2017-04-29 20:50 | External Medical Summary ---
[...] Congestive heart failure, 428.0 Active unspecified Problem Diabetes Mellitus Type 2, not stated 250.00 Active as uncontrolled Problem COPD 496 Active Problem Generalized anxiety disorder 300.02 Active Problem Major depressive disorder, recurrent 296.32 Active episode, moderate Problem Morbid obesity 278.01 Active Problem Sleep apnea 327.20 Active Assessment Unspecified tachycardia 785.0 Active Assessment COPD 496 Active Assessment Shortness of breath 786.05 Active Problem Eczema 691.8 Active Problem 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, type II or unspecified type, not stated as uncontrolled Assessment Congestive heart failure, 428.0 Active unspecified Problem Hypertension, benign 401.1 Active Problem Other specified disease of nail 703.8 Active Problem Degeneration of lumbar or 722.52 Active lumbosacral intervertebral disc Medications Medication Code Code Instructions Start End Status Dosage System Date Date Ethan Dumont NDC 64786-2 100 MG Orally July 15September 09 capsule 122-01 Three times a 2014 05, as needed day as needed 2014 for cough/congestio n NIFEdipine [place] NDC 84822-7 60 MG Orally 1 tablet 058-01 Once a day Albuterol Sulfate NDC 86146-4 (2.5 MG/3ML) Oct 22, 3 ml 990-52 0.083% 2013 Inhalation every 6 hrs as needed for COPD Lasix NDC 26740-7 40 MG Orally July 15, 1 tablet 060-13 every 8 hours 2014 PredniSONE NDC 97357-4 10 MG Orally July 15, July 18, 6 tabs 017-20 2014 2014 daily x3 days, then 4 tabs daily x3 days, then 3 tabs daily x3 days, then 2 tabs daily x3 days, then 1 tab daily x[place] [address]-5 10 MEQ Orally July 15July 22, 1 tablet 043-00 every 8 hours 2014 2014 with las[place] [address]-4 0.02 % Oct 22Jan 11, as 989-62 Inhalation 2013 2014 directed every 6 hours as [place]. [place] [address]-3 20 MG Orally 2 tablet 268-01 Once a day Nitrostat NDC 24066-2 0.4 MG 1 tablet 418-13 Sublingual under the every 0 hrs tongue and allow to [place] [address]-6 60 MG Orally 1 capsule 237-01 Twice [place] [address]-2 25 MG Orally 1 capsule 256-01 [place] [address]-5 500 MG Orally July 15July 22, 1 tablet 525-10 Once a day 2014 2014 [place] [address]-8 0.2 MG Orally Apr 28, 1 tablet 128-10 BID [address] [place] [address]-9 500-50 MCG/DOSE 1 puff 697-00 Inhalation [place] [address]-6 108 (90 Base) Dec 05, 2 puffs as 851-85 MCG/ACT 2012 needed Inhalation every 4 hrs Procedures Procedure Coding System Code Date OFFICE VISIT, EST-MOD. COMPLEXITY (25 MIN) CPT-4 57135 July 17, 2014 BASIC METABOLIC PANEL CPT-4 65878 July 17, 2014 Vital Signs Date/Time: July 17, 2014 Height 69 in Weight 300.0 lbs Temperature 97.9 F Blood Pressure Diastolic 89 mm Hg Blood Pressure Systolic 150 mm Hg Cardiac Monitoring Heart Rate 116 /min BMI 44.30 Index Oximetry 96 % Respiratory Rate 28 /min Results No Known Results Summary Purpose [employer]ClinicalWorks Submission
--- OUTSIDE RECORDS SUMMARY | 2017-04-29 20:50 | External Medical Summary ---
:1965 Author Organization eClinicalWorks Care Team Providers Name Role Phone Bobbi Kapadia Provider Role Unavailable Allergies No Known Allergies Problems Problem Type Condition ICD-9 Code Onset Dates Condition Status Problem Hypertension, benign 401.1 Active Problem Degeneration of lumbar or 722.52 Active lumbosacral intervertebral disc Problem Chronic airway obstruction, not 496 Active elsewhere classified Problem Sleep apnea 327.20 Active Problem Generalized anxiety disorder 300.02 Active Problem Morbid obesity 278.01 Active Problem Tobacco abuse V15.82 Active Problem Hypercholesterolemia 272.2 Active Problem Major depressive disorder, 296.32 Active recurrent episode, moderate Problem Polyneuropathy in diabetes 357.2 Active Problem Other specified disease of nail 703.8 Active Problem Eczema 691.8 Active Problem 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, type II or unspecified type, not stated as uncontrolled Medications Medication Code System Code Instructions Start Date End Date [place] [address] 500 MG Orally Mar 23, Apr 02, Active 1 capsule 9-05 every 8 hrs 2014 2014 Vital Signs Date/Time: Feb 13, 2014 Height 69 inches Weight 297.4 lbs Temperature 98.0 F Blood Pressure Diastolic 88 mm Hg Blood Pressure Systolic 148 mm Hg Cardiac Monitoring Heart Rate 76 Beats per Minute BMI 43.91 Index Respiratory Rate 28 per Minute Results No Known Results Summary Purpose [employer]ClinicalWorks Submission
--- OUTSIDE RECORDS SUMMARY | 2017-04-29 20:50 | External Medical Summary ---
:1965 Author Organization eClinicalWorks Care Team Providers Name Role Phone Clair Morales Provider Role Unavailable Allergies No Known Allergies [...] not stated as uncontrolled Medications Medication Code Code Instructions Start End Status Dosage [place] [address]-8 50 MG Orally Active 1 capsule 257-01 Once a day Lisinopril NDC 09616-4 20 MG Orally Active 2 tablet 268-01 [place] [address]-0 (2.5 MG/3ML) Active 3 ml 990-52 0.083% Inhalation PRN Advair Diskus NDC 21307-0 500-50 MCG/DOSE Active 1 puff 697-00 [place]halation [place] [address]-2 300MG Orally May Active 3 tabs 608-16 Three times a 2012 [place] [address]-4 0.2 MG Orally Apr 28, Active 1 tablet 128-10 BID 2013 [place] [address]-1 108 (90 Base) Dec 05, Active 2 puffs as 851-85 MCG/ACT 2012 needed Inhalation every 4 [place] [address]-4 60 MG Orally Active 1 capsule 237-01 [place] [address]-2 10 MG Orally May Active 1 tablet 674-10 Once a day 2013 Ipratropium Viola [facility] 02966-6 0.02 % Oct 24, Active as 989-62 Inhalation PRN 2013 directed Powderly [facility] 65872-0 10-325 MG Oct 23, Active 1-2 tablet 035-00 Orally every 6 2013 [place] [address]-0 0.4 MG Active 1 tablet 418-13 Sublingual under the every 0 hrs tongue and allow to dissolve [place] [address]-5 60 MG Orally Active 1 tablet 058-01 Once a day Citalopram [facility] 95264-1 20 MG Orally Feb 11, Active 1 tablet Hydrobromide 741-01 Once a day 2012 Vital Signs Date/Time: September 23, 2013 Height 69 inches Weight 301.4 lbs Temperature 97.5 F Blood Pressure Diastolic 78 mm Hg Blood Pressure Systolic 118 mm Hg Cardiac Monitoring Heart Rate 88 Beats per Minute BMI 44.50 Index Respiratory Rate 28 per Minute Results No Known Results Summary Purpose [employer]ClinicalWorks Submission
--- OUTSIDE RECORDS SUMMARY | 2017-04-29 20:50 | External Medical Summary ---
[...] 278.01 Active Problem Sleep apnea 327.20 Active Problem Eczema 691.8 Active Problem 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, type II or unspecified type, not stated as uncontrolled Problem Hypertension, benign 401.1 Active Problem Other specified disease of nail 703.8 Active Problem Degeneration of lumbar or 722.52 Active lumbosacral intervertebral disc Medications No Known Medications Results No Known Results Summary Purpose [facility] Submission
--- OUTSIDE RECORDS SUMMARY | 2017-04-29 20:50 | External Medical Summary ---
[...] elsewhere classified Problem Sleep apnea 327.20 Active Assessment Need for prophylactic V04.81 Active vaccination and inoculation, Influenza Problem Generalized anxiety disorder 300.02 Active Problem Morbid obesity 278.01 Active Problem Tobacco abuse V15.82 Active Problem Hypercholesterolemia 272.2 Active Problem Major depressive disorder, 296.32 Active recurrent episode, moderate Problem Polyneuropathy in diabetes 357.2 Active Assessment Hypercholesterolemia 272.2 Active Assessment Chronic airway obstruction, not 496 Active elsewhere classified Assessment Generalized anxiety disorder 300.02 Active Assessment Tobacco abuse V15.82 Active Assessment Hypertension, benign 401.1 Active Problem Other specified disease of nail 703.8 Active Assessment Degeneration of lumbar or 722.52 Active lumbosacral intervertebral disc Problem Eczema 691.8 Active Assessment 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, type II or unspecified type, not stated as uncontrolled Problem 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, type II or unspecified type, not stated as uncontrolled Medications Medication Code Code Instructions Start End Status Dosage System Date NIFEdipine ER NDC 84054-9 60 MG Orally Active 1 tablet 058-01 Once a day BusPIRone HCl NDC 13531-5 10 MG Orally 1 Jan 13, Active 1 tablet 054-01 two x /day for 2013 2 wks, then 2 twice a day for 2 wks then 3 per day Ventolin HFA NDC 04485-6 108 (90 Base) Dec 19, Active 2 puffs as 682-20 MCG/ACT 2013 needed Inhalation every 4 hrs Loratadine NDC 64255-3 10 MG Orally May Active 1 tablet 674-10 Once a day 2013 [place] [address]-0 (2.5 MG/3ML) Oct 22, Active 3 ml 990-52 0.083% 2013 [place]hal[place] [address]-1 10-325 MG Mar 15, Active 1-2 tablet 035-00 Orally every 6 2014 as needed hrs (FILL ON/AFTER 02/17/14) [place] [address]-1 20 MG Orally Active 2 tablet 268-01 [place] [address]-4 300MG Orally May Active 3 tabs 608-16 Three times a 2012 [place] [address]-2 0.2 MG Orally Apr 28, Active 1 tablet 128-10 BID 2013 [place] [address]-1 108 (90 Base) Dec 05, Active 2 puffs as 851-85 MCG/ACT 2012 needed Inhalation every 4 [place] [address]-6 20 MG Orally Feb 11, Active 2 tablets Hydrobromide 741-01 Once a [place] 2012 [place] [address]-0 60 MG Orally Active 1 capsule 237-01 Twice [place] [address]-1 0.02 % Oct 22, Active as 989-62 Inhalation 2013 [place] [address]-1 0.4 MG Active 1 tablet 418-13 Sublingual under the every 0 hrs tongue and allow to dissolve [place] [address]-7 50 MG Orally Active 1 capsule 257-01 [place] [address]-6 500-50 MCG/DOSE Active 1 puff 697-00 Inhalation Twice a day Procedures Procedure Coding System Code Date FLU VACCINE NO PRESERV 3 & > CPT-4 04079 Feb 13, 2014 ADMINISTRATION, 1ST IMMUNIZATION CPT-4 83129 Feb 13, 2014 OFFICE VISIT, EST-MOD. COMPLEXITY (25 MIN) CPT-4 33774 Feb 13, 2014 [facility] CPT CPT-4 DUM[facility] Feb 13, 2014 Vital Signs Date/Time: Feb 13, 2014 Height 69 inches Weight 297.4 lbs Temperature 98.0 F Blood Pressure Diastolic 88 mm Hg Blood Pressure Systolic 148 mm Hg Cardiac Monitoring Heart Rate 76 Beats per Minute BMI 43.91 Index Respiratory Rate 28 per Minute Results No Known Results Immunizations Vaccine Administration Date Influenza shot 4 y.o. and older Feb 13, 2014 Summary Purpose eClinicalWorks Submission
--- OUTSIDE RECORDS SUMMARY | 2017-04-29 20:51 | External Medical Summary ---
[...] Medications Results No Known Results Summary Purpose [employer] Submission
--- OUTSIDE RECORDS SUMMARY | 2017-04-29 20:51 | External Medical Summary ---
:1965 Author Organization eClinicalWorks Care Team Providers Name Role Phone Gray Rueda Provider Role Unavailable Allergies, Adverse Reactions, Alerts Substance Reaction Event Type Adhesive Tape Info Not Available Drug Allergy Problems Problem Type Condition Code [...] unspecified Problem Atopic dermatitis, unspecified L20.9 Active Assessment Other chest pain R07.89 Active Assessment Shortness of breath R06.02 Active Assessment Chronic obstructive pulmonary J44.9 Active disease, unspecified Problem Unspecified systolic (congestive) I50.20 Active heart failure Problem Chronic obstructive pulmonary J44.9 Active disease, unspecified Assessment Chronic systolic (congestive) heart I50.22 Active failure Problem Sleep apnea, unspecified G47.30 Active Problem Type 2 diabetes mellitus without E11.9 Active complications Problem Morbid (severe) obesity due to E66.01 Active excess calories Medications Medication Code Code Instructions Start End Status Dosage System Date Date Hydrochlorothiazide [facility] 58777-6 25 MG Orally 1 capsule 256-01 [place] [address]-6 0.2 MG Orally Apr 28 tablet 128-10 BID 2013 [place] [address]-2 18-103 MCG/ACT October 01 puff 4 013-14 Inhalation 2015 times a every 6 hours day as as needed for needed for shortness of SOA breath/[place] [address]-7 20 MEQ Orally 1 356-01 [place] [address]-2 60 MG Orally 1 capsule 237-01 [place] [address]-8 40 MG Orally July 15, 1 tablet 060-13 Twice every day 2014 Nebulizer NDC 92645-8 1 Dec 14, as 8249 2014 directed Advair Diskus NDC 08857-8 500-50 MCG/DOSE 1 puff 697-00 Inhalation Twice a day Nitrostat NDC 97531-6 0.4 MG 1 tablet 418-13 Sublingual under the every 0 hrs tongue and allow to dissolve as needed NIFEdipine ER NDC 39273-7 60 MG Orally 1 tablet 058-01 Once a day Advair Diskus NDC 96328-5 500-50 MCG/DOSE Dec 14, 1 puff 697-00 Inhalation 2014 Twice a day. samples given today. Ethan Dumont NDC 85344-7 100 MG Orally 1 capsule 122-01 Three times a as needed day Nebulizer/Tubing/Mouth NDC 17666-9 1 Dec 14, as piece 9000 2014 directed Ipratropium [place] NDC 63589-1 0.02 % Oct 22Jan 11, as 989-62 Inhalation 2013 2014 directed every 6 hours as needed for COPD. Lisinopril NDC 85189-3 20 MG Orally 2 tablet 268-01 Once a day Albuterol Sulfate NDC 82760-7 (2.5 MG/3ML) Oct 22, 3 ml 990-52 0.083% 2013 Inhalation every 6 hrs as needed for COPD Procedures Procedure Coding System Code Date OFFICE VISIT, EST-MOD. COMPLEXITY (25 MIN) CPT-4 04945 Dec 14, 2014 Vital Signs Date/Time: Dec 14, 2014 Height 69 in Weight 254.12 lbs Temperature 98.0 F Blood Pressure Diastolic 84 mm Hg Blood Pressure Systolic 136 mm Hg Cardiac Monitoring Heart Rate 83 /min BMI 37.52 Index Oximetry 94 % Respiratory Rate 16 /min Results No Known Results Summary Purpose eClinicalWorks Submission
--- OUTSIDE RECORDS SUMMARY | 2017-04-29 20:51 | External Medical Summary ---
[...] obstructive pulmonary J44.9 Active disease, unspecified Assessment Type 2 diabetes mellitus without E11.9 Active complications Problem Sleep apnea, unspecified G47.30 Active Problem Type 2 diabetes mellitus without E11.9 Active complications Problem Morbid (severe) obesity due to E66.01 Active excess calories Medications Medication Code Code Instructions Start End Status Dosage System Date Date Cymbalta [facility] [address]-60 60 MG Orally 1 capsule Twice a day Hydrochlorothiazide [facility] [address]-60 25 MG Orally 1 capsule Once a day Nebulizer/Tubing/Mout [facility] 12229-95041 1 DX: J44.9 Jan 12, as hpiece 2014 directed Spironolactone [facility] [address]-48 25 MG Orally 1 tablet Once a day Oxygen ND 0 2 NC 2-3 continuous liters Advair Diskus [facility] 23981451122 500/50 1 puff Inhalation Twice a day Albuterol Sulfate [facility] [address]-98 (2.5 MG/3ML) Oct 22, 3 ml 0.083% 2013 Inhalation every 6 hrs as needed for COPD Prilosec OTC [facility] 35696-04570 20 MG Orally Apr 13, 1 tablet Once a day. 2016 take while on prednisone. ProAir HFA [facility] [address]-61 108 (90 Base) Apr 01, 1-2 puffs MCG/ACT 2015 as needed Inhalation every 6hrs Nebulizer/Tubing/Mout [facility] [address]133 Dec 14, as hpiece 2015 directed Nebulizer [facility] [address]06-64651 1 Dec 14, as 2015 directed Clonidine HCl [facility] [address]-99 0.2 MG Orally Apr 28, 1 tablet BID 2013 Nitrostat [facility] [address]-96 0.4 MG 1 tablet Sublingual under the every 5 min x tongue 3 doses as and allow needed for to chest pain. if dissolve chest pain call 911 Carvedilol [facility] [address]-51 6.25 MG Orally 1 tablet Twice a day with food Lasix [facility] [address]-71 40 MG Orally July 15, 1 tablet Twice every 2014 day Lisinopril [facility] [address]-06 20 MG Orally 2 tablet Once a day NIFEdipine ER [facility] [address]-22 60 MG Orally 1 tablet Once a day Nebulizer [facility] 60620-37136 1 DX:J44.9 Jan 12, as 2014 directed Procedures Procedure Coding System Code Date LIPID PANEL CPT-4 16279 July 08, 2015 TSH CPT-4 27839 July 08, 2015 HEMOGLOBIN A1C, IN HOUSE CPT-4 77544 July 08, 2015 Results No Known Results Summary Purpose eClinicalWorks Submission
--- OUTSIDE RECORDS SUMMARY | 2017-04-29 20:51 | External Medical Summary ---
[...] obstructive pulmonary J44.9 Active disease, unspecified Assessment Shortness of breath R06.02 Active Problem Sleep apnea, unspecified G47.30 Active Problem Type 2 diabetes mellitus without E11.9 Active complications Problem Morbid (severe) obesity due to E66.01 Active excess calories Medications No Known Medications Procedures Procedure Coding System Code Date D DIMER QUANT CPT-4 33303 Apr 14, 2015 Results No Known Results Summary Purpose [employer] Submission
--- OUTSIDE RECORDS SUMMARY | 2017-04-29 20:51 | External Medical Summary ---
[...] 691.8 Active Problem Hypercholesterolemia 272.2 Active Medications Medication Code System Code Instructions Start Date End Date Status Dosage Albuterol [facility] 13530-169 (2.5 MG/3ML) Oct 13, 3 ml Sulfate 0-52 0.083% Inhalation 2013 every 6 hrs as needed for COPD Results No Known Results Summary Purpose [employer] Submission
--- OUTSIDE RECORDS SUMMARY | 2017-04-29 20:51 | External Medical Summary ---
[...] Medications Results No Known Results Summary Purpose [employer] Submission
--- OUTSIDE RECORDS SUMMARY | 2017-04-29 20:51 | External Medical Summary ---
[...] Medications Medication Code Code Instructions Start End Date Status Dosage System Date Ipratropium NDC 46345-57 0.02 % Oct 22July 31, as directed [place] 89-62 Inhalation 2013 2014 [place] [address]-68 (2.5 MG/3ML) Oct 22, 3 ml Sulfate 90-52 0.083% 2013 Inhalation Three times a day Results No Known Results Summary Purpose [employer] Submission
--- OUTSIDE RECORDS SUMMARY | 2017-04-29 20:51 | External Medical Summary ---
:1965 Author Organization eClinicalWorks Care Team Providers Name Role Phone Bobbi Kapadia Provider Role Unavailable Allergies, Adverse Reactions, Alerts [...] Problem Atopic dermatitis, unspecified L20.9 Active Assessment Unspecified systolic (congestive) I50.20 Active heart failure Problem Unspecified systolic (congestive) I50.20 Active heart failure Problem Chronic obstructive pulmonary J44.9 Active disease, unspecified Assessment Chronic obstructive pulmonary J44.9 Active disease, unspecified Problem Sleep apnea, unspecified G47.30 Active Problem Type 2 diabetes mellitus without E11.9 Active complications Problem Morbid (severe) obesity due to E66.01 Active excess calories Medications Medication Code Code Instructions Start End Status Dosage System Date Date Advair Diskus [facility] 40033-6 500-50 MCG/DOSE Dec 14, 1 puff 697-00 Inhalation 2014 Twice a day. [place] [address]-7 60 MG Orally 1 capsule 237-01 [place] [address]-5 100 MG Orally 1 capsule 122-01 Three times a [place] [address]-4 0.2 MG Orally Apr 28, 1 tablet 128-10 BID 2013 [place] [address]-4 60 MG Orally 1 tablet 058-01 [place] [address]-9 20 MG Orally 2 tablet 268-01 [place] [address]-4 1 Dec 14, as 8249 2014 directed Lasix NDC 31905-3 40 MG Orally July 15, 1 tablet 060-13 Twice every day 2014 Ipratropium [place] NDC 62187-6 0.02 % Oct 22Jan 11, as 989-62 Inhalation 2013 2014 directed every 6 hours as needed for COPD. Spironolactone NDC 36731-9 25 MG Orally 1 tablet 803-11 Once a day Carvedilol NDC 15450-1 6.25 MG Orally 1 tablet 135-01 Twice a day with food Albuterol Sulfate NDC 56079-2 (2.5 MG/3ML) Oct 22, 3 ml 990-52 0.083% 2013 Inhalation every 6 hrs as needed for COPD Nitrostat NDC 28052-5 0.4 MG 1 tablet 418-13 Sublingual under the every 5 min x 3 tongue and doses as needed allow to for chest pain. dissolve if chest pain call 911 Hydrochlorothiazide NDC 76856-3 25 MG Orally 1 capsule 256-01 Once a day Combivent NDC 59393-3 18-103 MCG/ACT October 01, 1 puff 4 013-14 Inhalation 2015 times a every 6 hours day as as needed for needed for shortness of SOA breath/wheezing Advair Diskus NDC 52265-6 500-50 MCG/DOSE 1 puff 697-00 Inhalation Twice a day Nebulizer/Tubing/Mouth NDC 19941-1 1 Dec 14, as piece 9000 2014 directed Procedures Procedure Coding System Code Date OFFICE VISIT, EST-LOW COMPLEXITY (15 MIN.) CPT-4 17588 Dec 28, 2014 Vital Signs Date/Time: Dec 28, 2014 Height 69 in Weight 259 lbs Temperature 97.6 F Blood Pressure Diastolic 56 mm Hg Blood Pressure Systolic 96 mm Hg Cardiac Monitoring Heart Rate 69 /min BMI 38.24 Index Oximetry 87 % Respiratory Rate 20 /min Results No Known Results Summary Purpose eClinicalWorks Submission
--- OUTSIDE RECORDS SUMMARY | 2017-04-29 20:51 | External Medical Summary ---
:1965 Author Organization eClinicalWorks Care Team Providers Name Role Phone Gray Rueda Provider Role Unavailable Allergies, Adverse Reactions, Alerts Substance Reaction Event Type Adhesive Tape Info Not Available Drug Allergy Problems Problem Type Condition ICD-9 Code Onset Dates Condition Status Problem Tobacco abuse V15.82 Active Problem Major depressive disorder, 296.32 Active recurrent episode, moderate Problem Polyneuropathy in diabetes 357.2 Active Problem COPD 496 Active Assessment Hypertension, benign 401.1 Active Problem Congestive heart failure, 428.0 Active unspecified Problem Hypertension, benign 401.1 Active Problem Sleep apnea 327.20 Active Problem Generalized anxiety disorder 300.02 Active Problem Diabetes Mellitus Type 2, not 250.00 Active stated as uncontrolled Problem Morbid obesity 278.01 Active Assessment Unspecified dental caries 521.00 Active Assessment Congestive heart failure, 428.0 Active unspecified Assessment COPD 496 Active Assessment Pain in joint, forearm 719.43 Active Problem 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, type II or unspecified type, not stated as uncontrolled Problem Hypertension, benign 401.1 Active Problem Other specified disease of nail 703.8 Active Problem Degeneration of lumbar or 722.52 Active lumbosacral intervertebral disc Problem Eczema 691.8 Active Problem Hypercholesterolemia 272.2 Active Medications Medication Code Code Instructions Start End Status Dosage System Date Ethan Dumont [facility] 09379-5 100 MG Orally 1 capsule 122-01 Three times a as needed day Combivent [facility] 94124-1 18-103 MCG/ACT October 01, to 2 013-14 Inhalation 2014 puffs every 6 hours as needed for shortness of breath/[place] [address]-4 0.2 MG Orally Apr 28, tablet 128-10 BID 2013 [place] [address]-2 25 MG Orally 1 capsule 256-01 Once a day Potassium Chloride [facility] 37059-1 20 MEQ Orally 1 356-01 [place] [address]-7 40 MG Orally July 15, tablet 060-13 Twice every day 2014 Cymbalta NDC 15564-5 60 MG Orally 1 capsule 237-01 Twice a day Nitrostat NDC 30910-7 0.4 MG 1 tablet 418-13 Sublingual under the every 0 hrs tongue and allow to dissolve as needed NIFEdipine [place] NDC 17549-0 60 MG Orally 1 tablet 058-01 Once a day Ipratropium [place] NDC 61118-6 0.02 % Oct 22, Jan 11, as directed 989-62 Inhalation 2013 2014 every 6 hours as needed for COPD. Lisinopril NDC 75477-4 20 MG Orally 2 tablet 268-01 Once a day Al[place]erol [place] NDC 17169-4 (2.5 MG/3ML) Oct 22, 3 ml 990-52 0.083% 2013 Inhalation every 6 hrs as needed for COPD Procedures Procedure Coding System Code Date OFFICE VISIT, EST-MOD. COMPLEXITY (25 MIN) CPT-4 23984 October 01, 2014 Vital Signs Date/Time: October 01, 2014 Height 69 in Weight 263.8 lbs Temperature 97.9 F Blood Pressure Diastolic 80 mm Hg Blood Pressure Systolic 126 mm Hg Cardiac Monitoring Heart Rate 89 /min BMI 38.95 Index Oximetry 94 % Respiratory Rate 22 /min Results No Known Results Summary Purpose eClinicalWorks Submission
--- OUTSIDE RECORDS SUMMARY | 2017-04-29 20:51 | External Medical Summary ---
:1965 Author Organization eClinicalWorks Care Team Providers Name Role Phone Gray Rueda Provider Role Unavailable Allergies No Known Allergies Problems Problem Type Condition Code Onset Dates Condition Status Problem Generalized anxiety disorder F41.1 Active Problem Personal history of nicotine Z87.891 Active dependence Problem Mixed hyperlipidemia E78.2 Active Problem Essential (primary) hypertension I10 Active Problem Type 2 diabetes mellitus with E11.40 Active diabetic neuropathy, unspecified Problem Chronic systolic (congestive) heart I50.22 Active failure Problem Atopic dermatitis, unspecified L20.9 Active Problem 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 Problem Other intervertebral disc M51.37 Active degeneration, lumbosacral region Problem Diabetes mellitus due to underlying E08.40 Active condition with diabetic neuropathy, unspecified Problem Chronic obstructive pulmonary J44.9 Active disease, unspecified Problem Sleep apnea, unspecified G47.30 Active Problem Type 2 diabetes mellitus without E11.9 Active complications Problem Morbid (severe) obesity due to E66.01 Active excess calories Problem Unspecified systolic (congestive) I50.20 Active heart failure Problem Major depressive disorder, F33.1 Active recurrent, moderate Medications No Known Medications Results No Known Results Summary Purpose [employer] Submission
--- OUTSIDE RECORDS SUMMARY | 2017-04-29 20:51 | External Medical Summary ---
:1965 [facility] Team Providers Name Role Phone Bobbi [...] Start End Status Dos[place] [address]-5 40 MG Orally July 15, 1 tablet 060-13 Twice every day 2014 [place] [address]-8 60 MG Orally 1 capsule 237-01 [place] [address]-7 20 MG Orally 2 tablet 268-01 Once a day [place] 17277-8 500-50 MCG/DOSE Dec 14, puff 697-00 Inhalation 2014 Twice a day. samples given today. Clonidine HCl NDC 93141-8 0.2 MG Orally Apr 28, 1 tablet 128-10 BID 2013 NIFEdipine ER NDC 42189-7 60 MG Orally 1 tablet 058-01 Once a day Spironolactone NDC 07402-1 25 MG Orally 1 tablet 803-11 Once a day Carvedilol NDC 12195-9 6.25 MG Orally 1 tablet 135-01 Twice a day with food Nebulizer NDC 01842-7 Dec 14, as 8249 2014 directed Nebulizer/Tubing/Mouth NDC 89413-9 Dec 14, as piece 9000 2014 directed Ipratropium [place] NDC 97512-4 0.02 % Oct 22Jan 11, as 989-62 Inhalation 2013 2014 directed every 6 hours as needed for COPD. Hydrochlorothiazide NDC 95226-1 25 MG Orally 1 capsule 256-01 [place] [address]-6 18-103 MCG/ACT October 01, 1 puff 4 013-14 Inhalation 2015 times a every 6 hours day as as needed for needed for shortness of SOA breath/wheezing Nitrostat NDC 36504-8 0.4 MG 1 tablet 418-13 Sublingual under the every 5 min x 3 tongue and doses as needed allow to for chest pain. dissolve if chest pain call 911 Tessalalina [place] N[place] 61873-4 100 MG Orally 1 capsule 122-01 Three times a [place] [address]-4 (2.5 MG/3ML) Oct 22, 3 ml 990-52 0.083% 2013 Inhalation every 6 hrs as needed for COPD Advair [place]us [place] 24136-8 500-50 MCG/DOSE 1 puff 697-00 Inhalation Twice a day Procedures Procedure Coding System Code Date COMPREHENSIVE METABOLIC PANEL CPT-4 00916 Dec 28, 2014 Results No Known Results Summary Purpose eClinicalWorks Submission
--- OUTSIDE RECORDS SUMMARY | 2017-04-29 20:51 | External Medical Summary ---
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, type II or unspecified type, not stated as uncontrolled Problem Hypertension, benign 401.1 Active Problem Other specified disease of nail 703.8 Active Problem Degeneration of lumbar or 722.52 Active lumbosacral intervertebral disc Problem Eczema 691.8 Active Problem Hypercholesterolemia 272.2 Active Medications Medication Code Code Instructions Start End Status Dosage System Date Date Lisinopril [facility] 25981-4 20 MG Orally 2 tablet 268-01 Once a day Ipratropium [place] [facility] 42092-9 0.02 % Oct 22, Jan 11, as directed 989-62 Inhalation 2013 2014 every 6 hours as needed for COPD. Combivent [facility] 04740-4 18-103 MCG/ACT October 01, 1 to 2 013-14 Inhalation 2014 puffs every 6 hours as needed for shortness of breath/wheezing Potassium Chloride [facility] 94039-6 20 MEQ Orally 1 356-01 Twice [place] [address]-3 60 MG Orally 1 tablet 058-01 [place] [address]-1 25 MG Orally 1 capsule 256-01 [place] [address]-1 40 MG Orally July 15, 1 tablet 060-13 Twice every day 2014 Cymbalta [facility] 39443-7 60 MG Orally 1 capsule 237-01 [place] [address]-9 0.4 MG 1 tablet 418-13 Sublingual under the every 0 hrs tongue and allow to dissolve as needed [place] 39489-4 100 MG Orally 1 capsule 122-01 Three times a as needed day Clonidine HCl NDC 36204-6 0.2 MG Orally Apr 28, 1 tablet 128-10 BID 2013 Albuterol Sulfate NDC 10587-9 (2.5 MG/3ML) Oct 22, 3 ml 990-52 0.083% 2013 Inhalation every 6 hrs as needed for COPD Procedures Procedure Coding System Code Date COMPLETE CBC W/AUTO DIFF WBC CPT-4 65115 Oct 29, 2014 COMPREHENSIVE METABOLIC PANEL CPT-4 76711 Oct 29, 2014 URINALYSIS, IN HOUSE CPT-4 10391 Oct 29, 2014 TSH CPT-4 47689 Oct 29, 2014 LIPID PANEL CPT-4 71204 Oct 29, 2014 IH MicroAlb/Creat Ratio, Urine CPT-4 93591 Oct 29, 2014 IH MicroAlb/Creat Ratio, Urine CPT-4 68561 Oct 29, 2014 Results No Known Results Summary Purpose eClinicalWorks Submission
--- OUTSIDE RECORDS SUMMARY | 2017-04-29 20:51 | External Medical Summary ---
:1965 Author Organization eClinicalWorks Care Team Providers Name Role Phone Gray Rueda Provider Role Unavailable Allergies No Known Allergies Problems Problem Type Condition ICD-9 Code Onset Dates Condition Status Problem Hypercholesterolemia 272.2 Active Problem Polyneuropathy in diabetes 357.2 Active Problem Tobacco abuse V15.82 Active Problem Congestive heart failure, 428.0 Active unspecified Problem Diabetes Mellitus Type 2, not 250.00 Active stated as uncontrolled Problem COPD 496 Active Problem Generalized anxiety disorder 300.02 Active Problem Major depressive disorder, 296.32 Active recurrent episode, moderate Problem Morbid obesity 278.01 Active Problem Sleep apnea 327.20 Active Problem Eczema 691.8 Active Problem 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, type II or unspecified type, not stated as uncontrolled Assessment COPD 496 Active Problem Hypertension, benign 401.1 Active Problem Other specified disease of nail 703.8 Active Problem Degeneration of lumbar or 722.52 Active lumbosacral intervertebral disc Medications Medication Code System Code Instructions Start Date End Date Status Dosage Albuterol [facility] 08545-397 (2.5 MG/3ML) Oct 13, 3 ml Sulfate 0-52 0.083% Inhalation 2013 every 6 hrs as needed for COPD Results No Known Results Summary Purpose eClinicalWorks Submission
[2017-04-29] MEDS ORDERED: ALBUTEROL/IPRATROPIUM 2.5mg-0.5mg/3ml NEB AEROSOL ONE (20:52)
[2017-04-29] MEDS ORDERED: SALINE FLUSH 10ml SYRINGE IVF PRN (20:52)
[2017-04-29] MEDS ORDERED: FUROSEMIDE 40 MG/4 ML INJECTION IVP ONE (20:52)
--- OUTSIDE RECORDS SUMMARY | 2017-04-29 20:52 | External Medical Summary ---
[...] lumbosacral intervertebral disc Medications No Known Medications Procedures Procedure Coding System Code Date D DIMER QUANT CPT-4 28211 July 16, 2014 Results No Known Results Summary Purpose eClinicalLogicworks Submission
--- OUTSIDE RECORDS SUMMARY | 2017-04-29 20:52 | External Medical Summary ---
[...] Medications Results No Known Results Summary Purpose [facility] [place] Submission
--- OUTSIDE RECORDS SUMMARY | 2017-04-29 20:52 | External Medical Summary ---
[...] Start Date End Date Status Dosage Nitrostat [facility] 12534-262 0.4 MG Sublingual 1 tablet 8-13 every 0 hrs under the tongue and allow to dissolve as needed Results No Known Results Summary Purpose eClinicalWorks Submission
--- OUTSIDE RECORDS SUMMARY | 2017-04-29 20:52 | External Medical Summary ---
[...] Medications Results No Known Results Summary Purpose [employer] Submission
--- OUTSIDE RECORDS SUMMARY | 2017-04-29 20:52 | External Medical Summary ---
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, type II or unspecified type, not stated as uncontrolled Assessment Shortness of breath 786.05 Active Problem Hypertension, benign 401.1 Active Problem Other specified disease of nail 703.8 Active Problem Degeneration of lumbar or 722.52 Active lumbosacral intervertebral disc Medications Medication Code Code Instructions Start End Status Dosage System Date Date Cymbalta [facility] 51123-7 60 MG Orally 1 capsule 237-01 [place] [address]-7 500-50 MCG/DOSE 1 puff 697-00 Inhalation [place]ice [place] [address]-1 (2.5 MG/3ML) Oct 22, 3 ml 990-52 0.083% 2013 Inhalation every 6 hrs as needed for COPD Lisinopril NDC 77368-4 20 MG Orally 2 tablet 268-01 Once a day Potassium Chloride ER NDC 06860-5 10 MEQ Orally July 15July 22, 1 tablet 043-00 every 8 hours 2014 2014 with lasix Tessalon Perles NDC 16368-4 100 MG Orally July 15September 09 capsule 122-01 Three times a 2014 05, as needed day as needed 2014 for cough/congestio n Hydrochlorothiazide NDC 25005-1 25 MG Orally 1 capsule 256-01 Once a day NIFEdipine ER NDC 16585-5 60 MG Orally 1 tablet 058-01 [place] [address]-9 0.4 MG 1 tablet 418-13 Sublingual under the every 0 hrs tongue and allow to dissolve [place] [address]-7 0.02 % Oct 22, Jan 11, as 989-62 Inhalation 2013 2014 directed every 6 hours [place] [address]-1 40 MG Orally July 15, 1 tablet 060-13 every 8 hours 2014 ProAir HFA [facility] 78413-3 108 (90 Base) Sept , 2 puffs as 851-85 MCG/ACT 2013 needed Inhalation every 4 [place] [address]-2 0.2 MG Orally Apr 28, 1 tablet 128-10 B[place] 2013 [place] [address]-5 500 MG Orally July 15, July 22, 1 tablet 525-10 Once a day 2014 2014 Procedures Procedure Coding System Code Date OFFICE VISIT, EST-LOW COMPLEXITY (15 MIN.) CPT-4 41366 July 21, 2014 Vital Signs Date/Time: July 21, 2014 Height 69 in Weight 298.8 lbs Temperature 97.7 F Blood Pressure Diastolic 96 mm Hg Blood Pressure Systolic 130 mm Hg Cardiac Monitoring Heart Rate 110 /min BMI 44.12 Index Oximetry 96 % Respiratory Rate 28 /min Results No Known Results Summary Purpose eClinicalWorks Submission
--- OUTSIDE RECORDS SUMMARY | 2017-04-29 20:52 | External Medical Summary ---
[...] Medications Results No Known Results Summary Purpose [facility] Submission
--- OUTSIDE RECORDS SUMMARY | 2017-04-29 20:52 | External Medical Summary ---
:1965 Author Organization eClinicalWorks Care Team Providers Name Role Phone Gray Rueda Provider Role Unavailable Allergies No Known Allergies Problems Problem Type Condition Code Onset Dates Condition Status Problem Hypertension, benign 401.1 Active Problem Degeneration of lumbar or 722.52 Active lumbosacral intervertebral disc Problem Chronic airway obstruction, not 496 Active elsewhere classified Problem Sleep apnea 327.20 Active Problem Generalized anxiety disorder 300.02 Active Problem Morbid obesity 278.01 Active Problem Tobacco abuse V15.82 Active Problem Hypercholesterolemia 272.2 Active Problem Major depressive disorder, recurrent 296.32 Active episode, moderate Problem Polyneuropathy in diabetes 357.2 Active Problem Other specified disease of nail 703.8 Active Problem Eczema 691.8 Active Problem 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
--- OUTSIDE RECORDS SUMMARY | 2017-04-29 20:52 | External Medical Summary ---
[...] Problem Atopic dermatitis, unspecified L20.9 Active Assessment Chronic systolic (congestive) heart I50.22 Active failure Assessment Tension-type headache, unspecified, G44.209 Active not intractable Problem Unspecified systolic (congestive) I50.20 Active heart failure Problem Chronic obstructive pulmonary J44.9 Active disease, unspecified Assessment Sebaceous cyst L72.3 Active Problem Sleep apnea, unspecified G47.30 Active Problem Type 2 diabetes mellitus without E11.9 Active complications Problem Morbid (severe) obesity due to E66.01 Active excess calories Medications Medication Code Code Instructions Start End Status Dosage System Date Date Albuterol Sulfate [facility] [address]-77 (2.5 MG/3ML) Oct 22, 3 ml 0.083% 2013 Inhalation every 6 hrs as needed for COPD Nebulizer/Tubing/Mout [facility] [address]-53172 Dec 14, as hpiece 2014 directed Advair Diskus [facility] 36414675585 500/50 1 puff Inhalation Twice a day Nebulizer [facility] 23523-68488 1 DX:J44.9 Jan 12, 2014 directed Hydrochlorothiazide [facility] [address]-75 25 MG Orally 1 capsule Once a day Oxygen ND 0 2 NC 2-3 continuous liters Nebulizer [facility] 225[address]-09326 1 Dec 14, as 2015 directed Prilosec OTC [facility] 464[address]647 20 MG Orally Apr 13, 1 tablet Once a day. 2016 take while on prednisone. Lasix [facility] [address]-23 40 MG Orally July 15, 1 tablet Twice every 2014 day Nebulizer/Tubing/Mout [facility] 48[address]-21677 1 DX: J44.9 Jan 12, as hpiece 2014 directed ProAir HFA [facility] [address]-53 108 (90 Base) Apr 01, 1-2 puffs MCG/ACT 2016 as needed Inhalation every 6hrs Lisinopril [facility] [address]-92 20 MG Orally 2 tablet Once a day Clonidine HCl [facility] [address]-76 0.2 MG Orally Apr 28, 1 tablet BID 2013 Carvedilol [facility] [address]-47 6.25 MG Orally 1 tablet Twice a day with food Nitrostat [facility] [address]-27 0.4 MG 1 tablet Sublingual under the every 5 min x tongue 3 doses as and allow needed for to chest pain. if dissolve chest pain call 911 Cymbalta [facility] [address]-33 60 MG Orally 1 capsule Twice a day NIFEdipine ER [facility] [address]-71 60 MG Orally 1 tablet Once a day Spironolactone [facility] [address]-47 25 MG Orally 1 tablet Once a day Procedures Procedure Coding System Code Date OFFICE VISIT, EST-LOW COMPLEXITY (15 MIN.) CPT-4 81677 July 08, 2015 Vital Signs Date/Time: July 08, 2015 Temperature 97.3 F Height 69 in Weight 291.8 lbs Blood Pressure Diastolic 86 mm Hg Blood Pressure Systolic 148 mm Hg Cardiac Monitoring Heart Rate 73 /min BMI 43.09 Index Oximetry 93 % Respiratory Rate 20 /min Results No Known Results Summary Purpose eClinicalWorks Submission
--- OUTSIDE RECORDS SUMMARY | 2017-04-29 20:52 | External Medical Summary ---
[...] Medications Results No Known Results Summary Purpose [employer] Submission
--- OUTSIDE RECORDS SUMMARY | 2017-04-29 20:52 | External Medical Summary ---
[...] Instructions Start Date End Date Status Dosage Combivent [facility] 98300-162 18-103 MCG/ACT October 01, 1 to 2 3-14 Inhalation every 2014 puffs 6 hours as needed for shortness of breath/wheezing Cymbalta [facility] 56924-235 60 MG Orally 1 capsule 7-01 Twice a day Results No Known Results Summary Purpose eClinicalWorks Submission
--- OUTSIDE RECORDS SUMMARY | 2017-04-29 20:52 | External Medical Summary ---
[...] Medications Results No Known Results Summary Purpose [employer] Submission
--- OUTSIDE RECORDS SUMMARY | 2017-04-29 20:52 | External Medical Summary ---
[...] Medications Results No Known Results Summary Purpose [employer] Submission
--- OUTSIDE RECORDS SUMMARY | 2017-04-29 20:52 | External Medical Summary ---
[...] mellitus with E11.40 Active diabetic neuropathy, unspecified Assessment Essential (primary) hypertension I10 Active Problem Other intervertebral disc M51.37 Active degeneration, lumbosacral region Assessment Gastro-esophageal reflux disease K21.9 Active without esophagitis Problem Essential (primary) hypertension I10 Active Problem 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 Problem Personal history of nicotine Z87.891 Active dependence Problem Diabetes mellitus due to underlying E08.40 Active condition with diabetic neuropathy, unspecified Problem Atopic dermatitis, unspecified L20.9 Active Assessment Other fatigue R53.83 Active Assessment Shortness of breath R06.02 Active Assessment Chronic obstructive pulmonary J44.9 Active disease, unspecified Assessment Chronic systolic (congestive) heart I50.22 Active failure Problem Unspecified systolic (congestive) I50.20 Active heart failure Problem Chronic obstructive pulmonary J44.9 Active disease, unspecified Assessment Cough R05 Active Problem Sleep apnea, unspecified G47.30 Active Problem Type 2 diabetes mellitus without E11.9 Active complications Problem Morbid (severe) obesity due to E66.01 Active excess calories Medications Medication Code Code Instructions Start End Status Dosage [place] [address]-0 0.2 MG Orally Apr 28, 1 tablet 128-10 BID 2013 Levaquin NDC 96311-0 750 MG Orally Apr 13, Apr 07, 1 tablet 530-10 every 24 hrs 2015 2015 [place] [address]-7 20 MG Orally 2 tablet 268-01 Once a day NIFEdipine ER NDC 71292-2 60 MG Orally 1 tablet 058-01 Once a day PredniSONE NDC 46832-5 10 MG Orally as Apr 13, Feb 08, 3 tabs 017-20 directed 2015 2016 daily X1 day then 2 tabs daily X3 days then 1 tab daily X 2 days, then stop Carvedilol NDC 99092-1 6.25 MG Orally 1 tablet 135-01 Twice a day with food Nebulizer/Tubing/Mouth NDC 79693-1 1 Dec 14, as piece 9000 2014 directed Tesdarrick Dumont NDC 90012-3 100 MG Orally May 10 to 122-01 every 8 hours , capsules 2015 as needed for cough/margarito estion ProAir HFA NDC 09778-4 108 (90 Base) Apr 01, 1-2 puffs 851-85 MCG/ACT 2015 as needed Inhalation every 6hrs Albuterol Sulfate NDC 27142-6 (2.5 MG/3ML) Oct 22, 3 ml 990-52 0.083% 2013 Inhalation every 6 hrs as needed for COPD Nebulizer/Tubing/Mouth NDC 14710-7 1 DX: J44.9 Jan 12, as piece 9000 2014 directed Nebulizer NDC 83254-9 1 DX:J44.9 Jan 12, as 8249 2014 directed Nebulizer NDC 60736-7 1 Dec 14, as 8249 2014 directed Advair [place]us [place] 49216-5 500-50 MCG/DOSE Dec 14, 1 puff 697-00 Inhalation 2014 Twice a day. samples given today. Hydrochlorothiazide NDC 54892-7 25 MG Orally 1 capsule 256-01 Once a day Lasix NDC 14199-1 40 MG Orally July 15, 1 tablet 060-13 Twice every day 2014 Nitrostat NDC 71795-7 0.4 MG 1 tablet 418-13 Sublingual under the every 5 min x 3 tongue and doses as needed allow to for chest pain. dissolve if chest pain call [address] [place] [address]-4 1 Dx: J44.9, Jan 13, as 9152 I50.20 2014 directed Cymbalta NDC 91028-8 60 MG Orally 1 capsule 237-01 Twice a day Prilosec OTC NDC 82226-7 20 MG Orally Apr 13, 1 tablet 5845 Once a day. 2016 take while on prednisone. Spironolactone NDC 02941-0 25 MG Orally 1 tablet 803-11 Once a day Procedures Procedure Coding System Code Date RAPID INFLUENZA, IN HOUSE CPT-4 07658 Apr 13, 2015 OFFICE VISIT, EST-MOD. COMPLEXITY (25 MIN) CPT-4 81137 Apr 13, 2015 Results No Known Results Summary Purpose eClinicalWorks Submission
--- OUTSIDE RECORDS SUMMARY | 2017-04-29 20:52 | External Medical Summary ---
[...] Instructions Start Date End Date Status Dosage Nebulizer [facility] 00926-775 1 DX:J44.9 Jan 12, as directed 49 2014 Nebulizer/[place] [address]-560 1 DX: J44.9 Jan 12, as directed g/Mouthpiece 00 2014 Results No Known Results Summary Purpose eClinicalWorks Submission
--- OUTSIDE RECORDS SUMMARY | 2017-04-29 20:52 | External Medical Summary ---
[...] Medications Results No Known Results Summary Purpose [employer] Submission
--- OUTSIDE RECORDS SUMMARY | 2017-04-29 20:52 | External Medical Summary ---
[...] Medications Results No Known Results Summary Purpose [employer] Submission
--- OUTSIDE RECORDS SUMMARY | 2017-04-29 20:52 | External Medical Summary ---
[...] obstructive pulmonary J44.9 Active disease, unspecified Assessment COPD 496 Active Problem Sleep apnea, unspecified G47.30 Active Problem Type 2 diabetes mellitus without E11.9 Active complications Problem Morbid (severe) obesity due to E66.01 Active excess calories Medications Medication Code Code Instructions Start End Date Status Dosage System [place] Ipratropium NDC 60535-98 0.02 % Oct 22, Jan 11, as directed Coggon 89-62 Inhalation every 2013 2014 6 hours as needed for COPD. Results No Known Results Summary Purpose eClinicalWorks Submission
--- OUTSIDE RECORDS SUMMARY | 2017-04-29 20:53 | External Medical Summary ---
[...] Instructions Start Date End Date Status Dosage ProAir HFA [facility] 07106-012 108 (90 Base) Apr 01, 1-2 puffs 1-85 MCG/ACT 2015 as needed Inhalation every 6hrs Results No Known Results Summary Purpose eClinicalWorks Submission
--- OUTSIDE RECORDS SUMMARY | 2017-04-29 20:53 | External Medical Summary ---
:1965 Author Organization eClinicalWorks Care Team Providers Name Role Phone Bobbi Kapdaia Provider Role Unavailable Allergies, Adverse Reactions, Alerts [...] E08.40 Active condition with diabetic neuropathy, unspecified Assessment Bacterial conjunctivitis of left H10.9 Active eye Problem Chronic obstructive pulmonary J44.9 Active disease, unspecified Problem Sleep apnea, unspecified G47.30 Active Problem Type 2 diabetes mellitus without E11.9 Active complications Problem Morbid (severe) obesity due to E66.01 Active excess calories Problem Unspecified systolic (congestive) I50.20 Active heart failure Problem Major depressive disorder, F33.1 Active recurrent, moderate Medications Medication Code Code Instructions Start End Status Dosage System Date Date Polytrim [facility] [address]-42 80110-9.1 Dec 12, Dec 10 drop UNIT/ML-% 2015, into Ophthalmic Six 2015 affected times a day eye Albuterol Sulfate [facility] [address]-57 (2.5 MG/3ML) Oct 22, 3 ml 0.083% 2013 Inhalation every 6 hrs as needed for COPD Spironolactone [facility] [address]-19 25 MG Orally 1 tablet Once a day Nebulizer/Tubing/Mout [facility] 07861-01404 1 DX: J44.9 Jan 12, as hpiece 2014 directed ProAir HFA [facility] [address]-14 108 (90 Base) Apr 01, 1-2 puffs MCG/ACT 2016 as needed Inhalation every 6hrs Prilosec OTC [facility] 25450-53067 20 MG Orally Apr 13, 1 tablet Once a day. 2016 take while on prednisone. Cymbalta [facility] [address]-28 60 MG Orally 1 capsule Twice a day Clonidine HCl [facility] [address]-78 0.2 MG Orally Apr 28, 1 tablet BID 2013 Nebulizer/Tubing/Mout [facility] 69057-06910 1 Dec 14, as hpiece 2014 directed Lisinopril [facility] [address]-47 20 MG Orally 2 tablet Once a day Hydrochlorothiazide [facility] [address]-71 25 MG Orally 1 capsule Once a day Lasix [facility] [address]-04 40 MG Orally July 15, 1 tablet Twice every 2014 day Advair Diskus [facility] 62617407217 500/50 1 puff Inhalation Twice a day NIFEdipine ER [facility] [address]-28 60 MG Orally 1 tablet Once a day Nebulizer [facility] 73442-25512 1 Dec 14, as 2014 directed Nitrostat [facility] [address]-26 0.4 MG 1 tablet Sublingual under the every 5 min x tongue 3 doses as and allow needed for to chest pain. if dissolve chest pain call 911 Fenofibrate [facility] [address]-30 134 MG Orally July 21, 1 capsule Micronized Once a day 2015 with a meal Carvedilol [facility] [address]-78 6.25 MG Orally 1 tablet Twice a day with food Nebulizer [facility] 30985-16717 1 DX:J44.9 Jan 122014 directed Oxygen [facility] 0 2 NC 2-3 continuous liters Procedures Procedure Coding System Code Date OFFICE VISIT, EST-LOW COMPLEXITY (15 MIN.) CPT-4 93998 Dec 13, 2015 Vital Signs Date/Time: Dec 13, 2015 Temperature 98.3 F Height 69 in Weight 285.8 lbs Blood Pressure Diastolic 100 mm Hg Blood Pressure Systolic 182 mm Hg Cardiac Monitoring Heart Rate 75 /min BMI 42.20 Index Oximetry 96 % Respiratory Rate 22 /min Results No Known Results Summary Purpose eClinicalWorks Submission
--- OUTSIDE RECORDS SUMMARY | 2017-04-29 20:53 | External Medical Summary ---
[...] unspecified type, not stated as uncontrolled Medications No Known Medications Vital Signs Date/Time: Feb 13, 2014 Height 69 inches Weight 297.4 lbs Temperature 98.0 F Blood Pressure Diastolic 88 mm Hg Blood Pressure Systolic 148 mm Hg Cardiac Monitoring Heart Rate 76 Beats per Minute BMI 43.91 Index Respiratory Rate 28 per Minute Results No Known Results Summary Purpose eClinicalWorks Submission
--- OUTSIDE RECORDS SUMMARY | 2017-04-29 20:53 | External Medical Summary ---
[...] Start Date End Date Status Dosage Nitrostat [facility] 39522-537 0.4 MG Sublingual 1 tablet 8-13 every 5 min x 3 under the doses as needed tongue and for chest pain. allow to if chest pain dissolve call 911 Results No Known Results Summary Purpose [employer] Submission
--- OUTSIDE RECORDS SUMMARY | 2017-04-29 20:53 | External Medical Summary ---
[...] with E11.40 Active diabetic neuropathy, unspecified Assessment Hypokalemia E87.6 Active Problem Other intervertebral disc M51.37 Active degeneration, lumbosacral region Assessment Encounter for immunization Z23 Active Problem Essential (primary) hypertension I10 Active Problem 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 Problem Personal history of nicotine Z87.891 Active dependence Problem Diabetes mellitus due to underlying E08.40 Active condition with diabetic neuropathy, unspecified Problem Atopic dermatitis, unspecified L20.9 Active Assessment Chronic systolic (congestive) heart I50.22 Active failure Assessment Adjustment disorder with depressed F43.21 Active mood Assessment Essential (primary) hypertension I10 Active Assessment Obstructive sleep apnea (adult) G47.33 Active (pediatric) Problem Unspecified systolic (congestive) I50.20 Active heart failure Problem Chronic obstructive pulmonary J44.9 Active disease, unspecified Assessment Major depressive disorder, single F32.9 Active episode, unspecified Problem Sleep apnea, unspecified G47.30 Active Problem Type 2 diabetes mellitus without E11.9 Active complications Problem Morbid (severe) obesity due to E66.01 Active excess calories Medications Medication Code Code Instructions Start End Status Dosage System Date Date Lasix [place] 91089-4 40 MG Orally July 15, tablet 060-13 Twice every day 2014 Combivent NDC 43075-1 18-103 MCG/ACT October 01, 1 puff 4 013-14 Inhalation 2015 times a every 6 hours day as as needed for needed for shortness of SOA breath/wheezing Albuterol Sulfate NDC 85130-5 (2.5 MG/3ML) Oct 22, 3 ml 990-52 0.083% 2013 Inhalation every 6 hrs as needed for COPD Ibuprofen NDC 95702-9 200 MG Orally Jan 13, Feb 12, 1 tablet 074-71 every 8 hrs, do 2014 2014 as needed not take for more than 1 week at a time Spironolactone NDC 64798-4 25 MG Orally 1 tablet 803-11 Once a day Hydrochlorothiazide NDC 13830-7 25 MG Orally 1 capsule 256-01 Once a day Wheelchair NDC 97235-1 1 Dx: J44.9, Jan 13, as 9152 I50.20 2014 directed Ethan Dumont NDC 85900-9 100 MG Orally 1 capsule 122-01 Three times a as needed day Nebulizer/Tubing/Mouth NDC 71835-3 1 DX: J44.9 Jan 12, as piece 9000 2015 directed Nebulizer NDC 05429-6 1 DX:J44.9 Jan 12, as 8249 2014 directed Nitrostat NDC 04377-8 0.4 MG 1 tablet 418-13 Sublingual under the every 5 min x 3 tongue and doses as needed allow to for chest pain. dissolve if chest pain call 911 Advair Diskus NDC 53371-9 500-50 MCG/DOSE Dec 14, 1 puff 697-00 Inhalation 2014 Twice a day. samples given [place]. [place]inopril NDC 38652-6 20 MG Orally 2 tablet 268-01 Once a day Clonidine HCl NDC 17283-6 0.2 MG Orally Apr 28, 1 tablet 128-10 BID 2013 Nebulizer NDC 88868-1 1 Dec 14, as 8249 2014 directed Carvedilol NDC 69081-0 6.25 MG Orally 1 tablet 135-01 Twice a day with food NIFEdipine ER NDC 55260-2 60 MG Orally 1 tablet 058-01 Once a day Cymbalta NDC 45548-4 60 MG Orally 1 capsule 237-01 Twice a day Nebulizer/Tubing/Mouth NDC 13363-8 1 Dec 14, as piece 9000 2014 directed Procedures Procedure Coding System Code Date FLU VAC NO PRSV 4 HAILEY 3 YRS+ CPT-4 48732 Jan 22, 2015 ADMINISTRATION, 1ST IMMUNIZATION CPT-4 10770 Jan 22, 2015 OFFICE VISIT, EST-MOD. COMPLEXITY (25 MIN) CPT-4 86002 Jan 22, 2015 Vital Signs Date/Time: Jan 22, 2015 Height 69 in Weight 264.8 lbs Temperature 97.9 F Blood Pressure Diastolic 102 mm Hg Blood Pressure Systolic 148 mm Hg Cardiac Monitoring Heart Rate 69 /min BMI 39.10 Index Oximetry 98 % Respiratory Rate 20 /min Results No Known Results Immunizations Vaccine Administration Date Influenza shot 3 y.o. and older Jan 22, 2015 Summary Purpose eClinicalWorks Submission
--- OUTSIDE RECORDS SUMMARY | 2017-04-29 20:53 | External Medical Summary ---
:1965 Author Organization [employer] Care Team Providers Name Role Phone Jose Diamond Provider Role Unavailable Allergies, Adverse Reactions, Alerts [...] obstructive pulmonary J44.9 Active disease, unspecified Assessment Cutaneous abscess of head [any L02.811 Active part, except face] Problem Sleep apnea, unspecified G47.30 Active Problem Type 2 diabetes mellitus without E11.9 Active complications Problem Morbid (severe) obesity due to E66.01 Active excess calories Medications Medication Code Code Instructions Start End Status Dosage System Date Date ProAir HFA [facility] [address]-51 108 (90 Base) Apr 01, 1-2 puffs MCG/ACT 2015 as needed Inhalation every 6hrs Nebulizer/Tubing/Mout [facility] [address]32[address]80 1 DX: J44.9 Jan 12, as hpiece 2014 directed NIFEdipine ER [facility] [address]-99 60 MG Orally 1 tablet Once a day Advair Diskus [facility] [id number] 500/50 1 puff Inhalation Twice a day Nebulizer [facility] 89412-[address]28 1 Dec 14, as 2014 directed Albuterol Sulfate [facility] [address]-02 (2.5 MG/3ML) Oct 22, 3 ml 0.083% 2013 Inhalation every 6 hrs as needed for COPD Carvedilol [facility] [address]-52 6.25 MG Orally 1 tablet Twice a day with food Lisinopril [facility] [address]-66 20 MG Orally 2 tablet Once a day Cymbalta [facility] [address]-23 60 MG Orally 1 capsule Twice a day Lasix [facility] [address]-81 40 MG Orally July 15, 1 tablet Twice every 2014 day Oxygen NDC 0 2 NC 2-3 continuous liters Nebulizer/Tubing/Mout [facility] 45042-[address]65 Dec 14, as hpiece 2014 directed Spironolactone [facility] [address]-79 25 MG Orally 1 tablet Once a day Clonidine HCl [facility] [address]-14 0.2 MG Orally Apr 28, 1 tablet BID 2013 Hydrochlorothiazide [facility] [address]-90 25 MG Orally 1 capsule Once a day Prilosec OTC [facility] [address]91-19153 20 MG Orally Apr 13, 1 tablet Once a day. 2015 take while on prednisone. Nebulizer [facility] 89496-[address]15 1 DX:J44.9 Jan 12, as 2014 directed Nitrostat [facility] [address]-17 0.4 MG 1 tablet Sublingual under the every 5 min x tongue 3 doses as and allow needed for to chest pain. if dissolve chest pain call 911 Procedures Procedure Coding System Code Date INCISION & DRAINAGE, ABSCESS, SIMPLE CPT-4 23846 July 09, 2015 Lidocaine CPT-4 J2001 July 09, 2015 Vital Signs Date/Time: July 09, 2015 Temperature 97.6 F Height 69 in Weight 290.8 lbs Blood Pressure Diastolic 77 mm Hg Blood Pressure Systolic 129 mm Hg Cardiac Monitoring Heart Rate 81 /min BMI 42.94 Index Respiratory Rate 16 /min Results No Known Results Summary Purpose [employer] Submission
[2017-04-29] MEDS ORDERED: METHYLPREDNISOLONE SOD SUCC 125mg/2ml INJECTION IVP ONE (20:57)
--- NOTE | 2017-04-29 21:08 | Emergency Department Report ---
Asthma HPI - General Stated Complaint: increased dyspnea Time Seen by Provider: 04/29/17 20:46 Source: patient, family, EMS Mode of arrival: EMS Limitations: no limitations - History of Present Illness HPI Narrative: Patient presents with increased weight gain, significant edema and swelling with induration from the umbilicus down to his feet, as well as worsening dyspnea. Patient admits that since he was admitted last year, in late September, he has essentially not followed up with any of his physicians, and has been off his medications for at least several months. Patient knows that he should be taking his meds, but states he cannot afford them due to a recent divorce, which was the same reasoning he gave when he was admitted last year in September for not taking his medicines for 6 months. Patient denies any fevers or chills, suddenly having exacerbation of his chronic dyspnea from COPD, CHF, and severe dilated cardiomyopathy. - Related Data Home Medications Medication Instructions Recorded Confirmed Albuterol/Ipratropium [Duoneb] 1 unit AEROSOL Q4H PRN 04/29/17 04/29/17 Potassium 99 mg PO BID 04/29/17 04/29/17 Previous Rx's Medication Instructions Recorded Lisinopril [Prinivil] 20 mg PO DAILY #30 tab 10/10/16 Metoprolol Tartrate [Lopressor] 25 mg PO BIDWM #60 tab 10/10/16 Sertraline [Zoloft] 50 mg PO DAILY #30 tab 10/10/16 Simvastatin [Zocor] 20 mg PO HS #30 tab 10/10/16 Allergies Allergy/AdvReac Type Severity Reaction Status Date / Time No Known Drug Allergies Allergy Unknown Verified 04/29/17 20:58 Review of Systems All systems: reviewed and negative except as stated PFSH Patient Stated Medical History Congestive Heart Failure Yes Hypertension Yes Asthma Yes Chronic Obstructive Pulmonary Yes Disease (COPD) Pneumonia Yes Sleep Apnea Yes Diabetes Mellitus Type 2 Yes Osteoarthritis Yes MRSA Yes Depression Yes: manic Dilated cardiomyopathy Chronic metabolic alkalosis Recurrent atypical chest pain High cholesterol Congestive heart failure Surgical History: Heart catheterization-2015- Patent coronaries. Right Shoulder arthroscopy. cholecystectomy - Social History Smoking status: Current every day smoker Substance use type: does not use Alcohol intake frequency: does not drink Current residence: Apartment/Private Home Physical Exam - Limitations Limitations: no limitations - General General appearance: alert, other (patient is poorly kept, and states that he's been unable to bathe due to water line breakage in his home) - Normal Exams: Head:: Normocephalic without trauma Eyes:: Pupils are PERRLA w/ EOMI, No scleral icterus, irritation, or foreign bodies noted ENMT:: No facial trauma, nasal exudates, pharyngeal erythema, or exudates are noted Neck:: Full range of motion, without adenopathy, JVD, bruits or thyromegaly Musculoskeletal:: No tenderness, or deformity noted, good range of motion, all extremities Integumentary:: No rashes, hives, or bruising noted, hair and nails, without abnormality Neurological:: Patient is alert, and oriented, cranial nerves, motor/sensory/ cerebellar, exams w/o gross deficits, to observation Psychiatric:: Patient exhibits, appropriate attention, emotion and affect - Chest Chest inspection: Present: normal inspection, symmetric chest wall rise. Absent : tenderness - Respiratory Respiratory exam: Present: wheezes, prolonged expiratory phase. Absent: normal lung sounds bilaterally (course tight wheezes bilaterally) - Cardiovascular Cardiovascular exam: Present: tachycardia, normal heart sounds. Absent: regular rate - Abdominal Exam Abdominal exam: Present: soft, other (patient has no significant abdominal tenderness, good bowel sounds throughout, however beginning at the umbilicus and going down, patient has mild reddened indurated and edematous swollen skin ) . Absent: distention, tenderness - Skin Skin exam: Present: other (pitting edema from the umbilicus down to the toes) Course Vital Signs Temperature 98.8 F 04/29/17 20:42 Pulse Rate 111 H 04/29/17 20:42 Respiratory Rate 28 H 04/29/17 20:42 Blood Pressure 134/97 H 04/29/17 20:42 Pulse Oximetry 96 04/29/17 20:42 Temperature 98.8 F 04/29/17 20:42 Pulse Rate 111 H 04/29/17 20:42 Respiratory Rate 42 H 04/29/17 21:21 Blood Pressure 134/97 H 04/29/17 20:42 Pulse Oximetry 92 04/29/17 21:21 Dyspnea - MDM Narrative Medical decision making narrative: Patient is given 2 DuoNeb's upfront and 40 of Lasix IV Currently he is maintaining his O2 saturations at 94% on his normal 3 L of oxygen ABG shows normal pH of 7.45, PCO2 is elevated at 67, PO2 is decreased at 67. These are fairly typical of the patient's ABGs every time he has been evaluated in the ER. CBC is essentially normal CMP is essentially normal Pro BNP is elevated at 2500, significantly elevated above the patient's normal baseline of 200-300. Blood pressures have been fluctuating, but currently blood pressure 121/92. Initially we had planned on giving the patient metoprolol and nitroglycerin paste, but this will be held in light of the patient's improving blood pressure. EKG shows a normal sinus rhythm with occasional supraventricular premature complexes, no signs of ischemia, infarction, or other ectopy Case is discussed with Dr. Joss Mckeon, we will admit to telemetry floor for respiratory therapy and diuresis. - Lab Data Result diagrams: 04/29/17 21:09 04/29/17 21:09 Lab Results 04/29/17 04/29/17 04/29/17 Range/Units 20:55 21:09 21:09 WBC 8.2 (4.5-11.0) T/MM3 RBC 4.67 (4.50-5.90) M/MM3 Hgb 13.1 L (13.5-17.5) GM/DL Hct 44.6 (41-53) % MCV 95.5 (80-100) UM3 MCH 28.1 (26-34) UUG MCHC 29.4 L (31-37) GM/DL RDW Std Deviation 52.5 H (36.9-50.2) FL Plt Count 114 L (130-400) T/MM3 MPV 11.0 (9.4-12.4) UM3 Immature Gran % (Auto) 0.2 (0.0-0.5) % Neut % (Auto) 74.5 H (33-66) % Lymph % (Auto) 14.1 L (23-45) % [place] % (Auto) 7.8 (0-9.0) % Eos % (Auto) 3.0 (0-4) % Baso % (Auto) 0.4 (0-2) % Neut # (Auto) 6.1 (1.8-7.7) T/MM3 Lymph # (Auto) 1.2 (1-4.8) T/MM3 [place] # (Auto) 0.6 (0-0.8) T/MM3 Eos # (Auto) 0.3 (0-0.5) T/MM3 Baso # (Auto) 0.0 (0-0.2) T/MM3 Abs Immat Gran (auto) 0.02 (0.00-0.03) T/MM3 ABG pH 7.450 (7.350-7.450) ABG pCO2 67 H* (34-45) MMHG ABG pO2 67 L (80-100) MMHG ABG HCO3 46.6 H (22-26) MEQ/L ABG Total CO2 48.7 H (23-27) MEQ/L ABG O2 Saturation 94.0 L (95.0-98.0) % ABG Base Excess 19.1 H (-2.0-2.0) MMOL/L O2 Delivery Method Nasal cannula, liter FiO2 (liters per min) 3 Turbidity < 20 (0-20) Sodium 146 H (134-144) MEQ/L Potassium 4.6 (3.6-5) MEQ/L Chloride 94 L (98-107) MEQ/L Carbon Dioxide 42 H* (22-30) MEQ/L Anion Gap 10 (5-15) MEQ/L BUN 9.0 (9-20) MG/DL Creatinine 0.7 L (0.8-1.5) MG/DL GFR Calculation 119 BUN/Creatinine Ratio 13 (6-26) RATIO Glucose 119 H (75-110) MG/DL Calculated Osmolality 281 H (261-280) MOSM/KG Calcium 9.2 (8.4-10.2) MG/DL Total Bilirubin 0.70 (0.20-1.30) MG/DL Conjugated Bilirubin 0.00 (0.00-0.30) MG/DL Unconjugated Bilirubin 0.40 (0.00-1.1) MG/DL Icterus Index < 2 (0-7) AST 20 (17-59) U/L ALT 26 (21-72) U/L Alkaline Phosphatase 86 (38-126) U/L B-Natriuretic Peptide 2950 H (0-175) pg/mL Total Protein 7.5 (6.3-8.2) G/DL Albumin 4.0 (3.5-5.0) G/DL Globulin 3.5 (2.4-3.6) G/DL Albumin/Globulin Ratio 1.1 (1.1-2.2) RATIO Specimen Hemolysis < 15 (0-25) Disposition Clinical Impression: COPD exacerbation Congestive heart failure Qualifiers: Heart failure type: diastolic Heart failure chronicity: acute on chronic Qualified Code(s): I50.33 - Acute on chronic diastolic (congestive) heart failure Disposition: 02 To [facility] [place] Acute Care Condition: Improved Prescriptions: No Action Simvastatin [Zocor] 20 mg PO HS #30 tab Lisinopril [Prinivil] 20 mg PO DAILY #30 tab Potassium 99 mg PO BID Metoprolol Tartrate [Lopressor] 25 mg PO BIDWM #60 tab Sertraline [Zoloft] 50 mg PO DAILY #30 tab Albuterol/Ipratropium [Duoneb] 1 unit AEROSOL Q4H PRN PRN Reason: Prn Orders Referrals: Gray Rueda DO [Family Provider] - - Seen By: physician
[2017-04-29] MEDS ORDERED: ORPHENADRINE 60 MG/2 ML INJECTION IVP ONE (21:26)
[2017-04-29] MEDS ORDERED: KETOROLAC 30 MG/ML INJECTION IVP ONE (21:26)
[2017-04-29] MEDS ORDERED: NITROGLYCERIN 2% OINTMENT 1gm PACKET TP ONE (21:43)
[2017-04-29] MEDS ORDERED: METOPROLOL 5mg/5ml INJECTION IVP SCH (21:45)
--- NOTE | 2017-04-29 21:51 | XRay Report ---
INDICATION: worsened dyspnea with copd and chf hx PROCEDURE: CHEST 2-VIEWS UPRIGHT (PA & LAT) Encounter: Initial COMPARISON: October 07, 2016 FINDINGS: Increased interstitial markings slightly worsened from the comparison study without lobar consolidation. No pleural effusion or pneumothorax. Cardiac silhouette is moderately enlarged. Mediastinal contours are stable. Impression: Increased interstitial prominence probably representing mild to moderate pulmonary edema. .
[2017-04-29] MEDS ORDERED: ACETAMINOPHEN 325 MG TABLET PO PRN (22:38)
[2017-04-29] MEDS ORDERED: SENNA + DOCUSATE TABLET PO PRN (22:38)
[2017-04-29] MEDS ORDERED: ONDANSETRON 4 MG/2 ML INJECTION IVP PRN (22:38)
[2017-04-29 22:57] VITALS: BMI 40.4
[2017-04-29] MEDS ORDERED: VANCOMYCIN - PHARMACY CONSULT MC ONE (23:19)
--- NOTE | 2017-04-29 23:23 | History & Physical Report ---
History of Present Illness Date: 04/30/17 Chief complaint: shortness of breath HPI: Patient seen via telemedicine with nursing assistance on 04/29/2017 Mr. Antonio is a 51yo man with h/o COPD, HTN, dyslipidemia, CHF last EF 2016 55%, chronic back pain, obesity class 3 BMI 40.5, and DM2 diet controlled. He has been out of medication for over a month due to cost, on disability with [employer] to start next month. He has still gotten O2 delivered and is on 3L NC continuously. He has had progressive edema to now the abdomen with dyspnea, orthopnea, PND, no chest pain. No fevers, chills, nausea, but new abdominal wall pain and redness over the last days. No recent abx. He was given lasix 40mg IV with urination twice thusfar, duoneb, toradol, and norflex. Review of Systems All systems PM: 10-point ROS was reviewed, no additional remarkable complaints except Past Medical History Patient Stated Medical History Congestive Heart Failure Yes Hypertension Yes Asthma Yes Chronic Obstructive Pulmonary Yes Disease (COPD) Pneumonia Yes Sleep Apnea Yes Diabetes Mellitus Type 2 Yes Osteoarthritis Yes MRSA Yes Depression Yes: manic Surgical History: Heart catheterization-2014- Patent coronaries. Right Shoulder arthroscopy. cholecystectomy Family History Updates: father of HTN and etoh - Social History Smoking status: Current every day smoker Medications Home Medications Medication Instructions Recorded Confirmed Type Albuterol/Ipratropium [Duoneb] 1 unit AEROSOL Q4H PRN 04/29/17 04/29/17 History Furosemide [Lasix] 1 tab PO BID 04/29/17 04/29/17 History Furosemide [Lasix] 1 tab PO DAILY 04/29/17 04/29/17 History Potassium 99 mg PO BID 04/29/17 04/29/17 History Allergies Allergy/AdvReac Type Severity Reaction Status Date / Time No Known Drug Allergies Allergy Unknown Verified 04/29/17 20:58 Exam Vital Signs: Temperature 98.8 F 04/29/17 20:42 Pulse Rate 107 H 04/29/17 22:55 Respiratory Rate 26 H 04/29/17 22:55 Blood Pressure 138/102 H 04/29/17 22:55 Pulse Oximetry 93 04/29/17 22:55 Telemetry Rhythm: Sinus Rhythm Height/Weight/BMI: Height 1.78 m Weight 128 kg Body Mass Index 40.4 - Constitutional Present: mild distress, well nourished, morbidly obese - Routine HEENT Exam Head: Present: normocephalic, atraumatic Eye: Present: EOMI - Routine Neck Exam Present: full ROM - Routine Respiratory Exam Present: dyspnea, decreased breath sounds, prolonged expiratory phase - Routine Cardiovascular Exam Present: RRR, S1, S2 Comments: 2-3+ LE edema to abdominal wall - Routine Abdominal Exam Present: soft, normoactive bowel sounds Comments: tender due to evidence of abdominal wall cellulitis - Routine Extremities Exam Present: edema. Absent: cyanosis, clubbing - Routine Skin Exam Present: intact, erythema, warm - Routine Neurological Exam Present: alert, oriented X3 Results - Labs CBC & Chem 7: 04/29/17 21:09 04/30/17 04:38 Assessment and Plan (1) Congestive heart failure Current visit: Yes Status: Acute (2) Abdominal wall cellulitis Current visit: Yes Status: Acute (3) Hypertension Problem details: Off all medications for > 6 months, uncontrolled Current visit: No Status: Acute (4) Acute and chronic respiratory failure with hypoxia Problem details: Chronic secondary to COPD, acute likely a combination of COPD exacerbation and volume overload/systolic heart failure exacerbation Current visit: No Status: Acute (5) Tobacco dependence syndrome Problem details: Ongoing, discussed cessation, unclear how much he is smoking routinely Current visit: No Status: Acute (6) Anxiety Problem details: Severe and chronic, untreated, exacerbated by dyspnea Current visit: No Status: Acute (7) COPD exacerbation Current visit: Yes Status: Acute Assessment and Plan: 1. Acute diastolic heart failure--admit to inpatient care status with lasix 40mg IV q8h, serial labs, KCl, and plan restart of lisinopril this admit. Bblocker restart toprol XL daily recc at SD. Noted 30-40 pound weight gain. 2. AECOPD with acute on chronic hypoxic and hypercapnic respiratory failure-- duoneb scheduled, prednisone, O2 with parameters. Mentating ok so no BIPAP for now. 3. Abdominal wall cellulitis with DM2 and h/o MRSA--vancomycin with pharmacy consult. 4. Essential HTN--as in 1. 5. Dm2, diet controlled. 6. Class 3 obesity BMI 40.5 7. Hypernatremia--repeat AM lab 8. Tobacco abuse--must stop DVT Prophylaxis: SCD's Resuscitation Status: Full Code - Physician Narrative Physician: Melissa Ramírez MD Narrative: Date: 04/30/17 Time: 1045 See supplemental note dictated 04/30/17 Hospital Course Summary Disclaimer: The visit summary below is not to be considered part of the above Progress Note.
[2017-04-29] MEDS ORDERED: MORPHINE SULFATE 4mg INJECTION IVP PRN (23:31)
[2017-04-29] MEDS ORDERED: PredniSONE 20 MG TABLET PO ONE (23:31)
[2017-04-29] MEDS: FUROSEMIDE 40 MG/4 ML INJECTION IVP SCH (23:37)
[2017-04-29] MEDS: LORazepam 1 MG TABLET PO PRN (23:38)
[2017-04-29] MEDS: Oxycodone/Acetaminophen 5/325 1 TAB PO PRN (23:38)
[2017-04-29] MEDS: ALBUTEROL/IPRATROPIUM 2.5mg-0.5mg/3ml NEB AEROSOL SCH (23:45)
[2017-04-30] MEDS: ALBUTEROL/IPRATROPIUM 2.5mg-0.5mg/3ml NEB AEROSOL SCH ×6 (05:13→23:24)
[2017-04-30] MEDS: LORazepam 1 MG TABLET PO PRN ×2 (06:52→13:57)
[2017-04-30] MEDS: Oxycodone/Acetaminophen 5/325 1 TAB PO PRN ×2 (06:52→13:56)
[2017-04-30] MEDS: FUROSEMIDE 40 MG/4 ML INJECTION IVP SCH ×2 (08:51→16:59)
[2017-04-30] MEDS ORDERED: INSULIN ASPART 100unit/ml INJECTION SQ PRN (11:21)
--- NOTE | 2017-04-30 11:22 | Pharmacy Consult-Antibiotics ---
Pharmacy Consult-Vancomycin - Laboratory Information WBC 8.2 T/MM3 (4.5-11.0) 04/29/17 21:09 BUN 12.0 MG/DL (9-20) 04/30/17 04:38 Creatinine 0.7 MG/DL (0.8-1.5) L 04/30/17 04:38 - Consult Information Dx: CELLULITIS Current Renal Fx: SCr = 0.7mg/dl. Will give Vancomycin 2,000mg IV q8hrs. Will continue to monitor and adjust regimen to maintain therapeutic levels. Thank you.
--- NOTE | 2017-04-30 11:26 | Progress Note ---
Progress Note: Progress note/supplement to overnight H&P Dr. Mckeon's note reviewed. Mr. Antonio interviewed and examined. CC: Dyspnea HPI: Mr. Antonio is 51-year-old male with known cardiomyopathy (ejection fraction in October 2015 was 30% although on follow-up echo in September 2016 EF was 55%) and COPD. He has multiple social problems and has been out of medications for a number of months due to lack of medical insurance. He was discharged from the hospital in early October 2016 for discharge weight of 121 kg. He reports any to the emergency room yesterday with complaints of weight gain, increasing edema over the past month, swelling in his abdomen, erythema on the lower abdomen which was painful and itchy, dyspnea any exertion including standing up , and 2 pillow orthopnea. Abdominal erythema has developed in the past 2 days but respiratory symptoms have been evolving progressively over the past month. He denies PND and is unsure of weight gain as he doesn't have a scale. He denies fevers, chills, or sweats. He's had no acute GI symptoms. He was treated with IV Lasix and nebulized breathing treatments in the emergency room. Respirations were described as tight with bilateral wheezing and prolonged expiratory phase in the ER. PH/SH/FH: agree with that recorded previously by Dr. Mckeon; patient has significant anxiety in conjunction with his depression. SH-less than one pack cigarettes daily, very rare alcohol use, no illicit drug use. The patient 16-year-old son lives with him in [place]. Patient is on disability and has been approved for Medicaid effective 05/10/17. PCP is Dr. Rueda and his regional environmental manager is Dr. Merchant but he is not seen either in the recent past. Full code. ROS: 10 point review positive for visual loss/blurry vision, intermittent palpitations, generalized anxiety with panic symptoms, numbness in his feet and inability to tell when he steps on something, hallucinations when he is off oxygen for prolonged periods of time, and generalized weakness remainder of review of systems is negative or as per history of present illness. Patient is chronically on 3 L supplemental oxygen at home. EXAM: General-NAD, talkative with mild push of speech; 96.1 115 133/70 90%-3 L weight 129.8 kg HEENT-PERRL, EOMI without nystagmus, conjunctiva clear, sclera anicteric, conjugate gaze, facial structures symmetric, oropharynx clear, neck supple and without adenopathy Lungs-respirations nonlabored, fair airflow, no wheezing present at the time of my evaluation, breath sounds distant, no crackles appreciated Cardiac-cardiac rhythm is slightly irregular, S1-S2, no murmur appreciated Abd-obese, soft, nontender, edema in the bowel wall below the umbilicus with generalized erythema from the umbilicus and involving the pannus-no open wounds appreciated except a small abrasion right lower quadrant which is really outside the area of erythema Ext-+2 pitting edema bilateral lower extremities, no generalized erythema; calluses on the feet bilaterally but no open wounds Neuro-cranial nerves 3-12 intact, patient describes decreased sensation to touch in his lower extremities primarily in the feet, MAEW Psych-anxious DATA: EKG reviewed by myself demonstrating sinus rhythm with occasional PACs, no acute ST/T-wave changes Chest x-ray reviewed by myself revealing cardiomegaly and increased vascular markings ProBNP 2950 Electrolytes notable for admission sodium 146, bicarbonate 42; creatinine 0.7. Glucose 119 on admission increasing to 211 this morning. Liver enzymes normal. Blood gas on 3 L supplemental oxygen in the emergency room 7.45/67/67/46.6 White count 8.2 with normal differential, hemoglobin 13.1 Echo 10/08/16: 1. Normal LV systolic function with ejection fraction of 55%. 2. Mild left ventricular dilation. 3. Biatrial dilation. 4. Left ventricular hypertrophy. 5. Mild mitral regurgitation. 6. Mild tricuspid regurgitation with moderate pulmonary hypertension with estimated pulmonary artery systolic pressure of 48. 7. Trace of pulmonary insufficiency. A/P: Acute/chronic CHF, preserved ejection fraction-EF 55% September 2016 Probable obesity hypoventilation syndrome COPD with acute exacerbation Chronic hypercarbic/hypoxic respiratory failure Abdominal wall cellulitis, history MRSA Depression/anxiety Tobacco abuse Hypertension Diabetes mellitus, diet controlled Hypernatremia, POA, resolved Diuresis initiated with furosemide 40 mg every 8 hours; prior to discharge last October the patient was on combined regimen of lisinopril, metoprolol, simvastatin, and aspirin. He was not discharged on diuretics per discharge summary; off all medications for several months although he indicates he was taking Lasix within the past 1-2 months. Weight is up approximately 20 pounds from discharge; monitor daily weights in addition to fluid balance. Resume metoprolol now, add MANI inhibitor in 1-2 days if blood pressure permits. Prednisone was initiated for COPD exacerbation overnight for COPD exacerbation will be continued. Continue breathing treatments for combined heart failure/ COPD. Blood gas suggest patient may benefit from CPAP however I doubt his anxiety disorder would allow him to tolerate this intervention. Will address later in the hospitalization. Continue vancomycin for abdominal wall cellulitis-does not appear to be septic and may be able to convert to oral antibiotics quickly. Resume sertraline for anxiety/depression. Monitor Accu-Cheks, A1c in a.m., corrective insulin ordered as hyperglycemia present this morning after IV steroids given in the emergency room and prednisone initiated overnight. Social work consultation requested to assist with medications at discharge and patient's multiple social barriers to healthcare.
[2017-04-30] MEDS: SERTRALINE 25 MG TABLET PO SCH (12:03)
[2017-04-30] MEDS: ASPIRIN *EC* 81 MG TABLET PO SCH (12:03)
[2017-05-01] MEDS: Oxycodone/Acetaminophen 5/325 1 TAB PO PRN ×2 (02:58→12:32)
[2017-05-01] MEDS: LORazepam 1 MG TABLET PO PRN ×3 (02:58→22:43)
[2017-05-01] MEDS: ALBUTEROL/IPRATROPIUM 2.5mg-0.5mg/3ml NEB AEROSOL SCH ×6 (03:05→22:31)
[2017-05-01] MEDS ORDERED: INFLUENZA VAC. INJ. ADMIN CHARGE INJ ONE (06:51)
[2017-05-01] MEDS ORDERED: PNEUMOCOCCAL VAC ADMIN CHARGE INJ ONE (06:52)
[2017-05-01] MEDS: PredniSONE 20 MG TABLET PO SCH (08:46)
[2017-05-01] MEDS: SERTRALINE 25 MG TABLET PO SCH (08:47)
[2017-05-01] MEDS: ASPIRIN *EC* 81 MG TABLET PO SCH (08:47)
[2017-05-01] MEDS: ENOXAPARIN 40 MG/0.4 ML INJECTION SQ SCH (08:47)
--- NOTE | 2017-05-01 15:02 | Progress Note ---
- Date 05/01/17 Subjective: Patient denies feeling any better. Complains he could be at home doing the same thing. Denies drinking the amount of in's listed in the chart. States he is compliant with fluid restriction and he is hardly drinking any. However patient with multiple cups and pitchers on his bedside table. Objective Vital signs: Temperature 96.2 F L 05/01/17 08:50 Pulse Rate 78 05/01/17 08:50 Respiratory Rate 24 05/01/17 10:35 Blood Pressure 116/88 05/01/17 08:50 Pulse Oximetry 95 05/01/17 10:35 Rhythm: Normal Sinus Rhythm Height/Weight/BMI: Height 5 ft 10 in Weight 133.2 kg Body Mass Index 40.4 - Constitutional Present: no acute distress, morbidly obese - Routine HEENT Exam Head: Present: normocephalic, atraumatic Eye: Present: EOMI, conjunctivae pink ENT: Present: mucous membranes moist - Routine Respiratory Exam Present: decreased breath sounds. Absent: respiratory distress - Routine Cardiovascular Exam Present: RRR, no murmur - Routine Abdominal Exam Present: soft, normoactive bowel sounds - Routine Extremities Exam Present: edema Comments: 2+ LE bilaterally - Routine Back/Spine/Pelvis Exam Back/Spine: Present: full ROM. Absent: CVA tenderness - Routine Skin Exam Present: rash Comments: erythema of abdominal wall without significant warmth or pain - Routine Neurological Exam Present: alert, oriented X3 - Routine Psychiatric Exam Present: normal affect Results - Labs CBC & Chem 7: 05/01/17 05:17 05/01/17 05:17 Assessment and Plan Assessment and Plan: ASSESSMENT: Acute diastolic heart failure COPD exacerbation with acute on chronic hypoxic and hypercapnic respiratory failure Abdominal wall cellulitis with DM2 and h/o MRSA Essential HTN--as in 1. Dm2, diet controlled. Class 3 obesity BMI 40.5 Hypernatremia Tobacco abuse Supratherapuetic vanc level-discontinue vanc Leukocytosis PLAN Fluid restriction, Bumex 1mg q8h, monitor renal status, strict I/O, daily weights duoneb scheduled, prednisone, O2 with parameters Discontinue Vanc, monitor labs Home medications Trend labs to closely watch renal function CM provided patient with resources for outpatient medications Monitor WBC - Physician Narrative Narrative: Date: 05/01/17 Time: 1455 Hospital Course Summary Disclaimer: The visit summary below is not to be considered part of the above Progress Note. Hospital Course: 05/01/17 Fluid restriction, Bumex 1mg q8h, monitor renal status, strict I/O, daily weights duoneb scheduled, prednisone, O2 with parameters Discontinue Vanc, monitor labs Home medications Trend labs to closely watch renal function CM provided patient with resources for outpatient medications Monitor WBC
[2017-05-01] MEDS ORDERED: INFLUENZA VAC QIV 2017-18 (Fluarix*)(>=3yo) 0.5ml IM ONE (21:00)
[2017-05-01] MEDS ORDERED: PNEUMOCOCCAL 13 VACCINE 0.5ml INJECTION IM ONE (21:00)
[2017-05-02] MEDS: ALBUTEROL/IPRATROPIUM 2.5mg-0.5mg/3ml NEB AEROSOL SCH ×5 (02:00→20:00)
[2017-05-02] MEDS: Oxycodone/Acetaminophen 5/325 1 TAB PO PRN ×2 (06:58→21:32)
[2017-05-02] MEDS: LORazepam 1 MG TABLET PO PRN ×2 (06:59→21:33)
[2017-05-02] MEDS: PredniSONE 20 MG TABLET PO SCH (10:25)
[2017-05-02] MEDS: ENOXAPARIN 40 MG/0.4 ML INJECTION SQ SCH (10:25)
[2017-05-02] MEDS: SERTRALINE 25 MG TABLET PO SCH (10:25)
[2017-05-02] MEDS: ASPIRIN *EC* 81 MG TABLET PO SCH (10:25)
--- NOTE | 2017-05-02 16:10 | Progress Note ---
- Date 05/02/17 Subjective: Patient tired today. Son and patient resting in room with lights off. Patient had no significant changes overnight. Objective Vital signs: Temperature 97.2 F 05/02/17 08:14 Pulse Rate 113 H 05/02/17 08:14 Respiratory Rate 24 05/02/17 11:00 Blood Pressure 118/86 05/02/17 08:14 Pulse Oximetry 95 05/02/17 11:00 Rhythm: Normal Sinus Rhythm Height/Weight/BMI: Height 5 ft 10 in Weight 132.7 kg Body Mass Index 40.4 - Constitutional Present: no acute distress - Routine HEENT Exam Head: Present: normocephalic, atraumatic Eye: Present: EOMI, conjunctivae pink ENT: Present: mucous membranes moist, nares patent - Routine Respiratory Exam Present: decreased breath sounds, CTA bilaterally - Routine Cardiovascular Exam Present: RRR, murmur - Routine Abdominal Exam Present: soft, normoactive bowel sounds - Routine Extremities Exam Present: edema. Absent: cyanosis, clubbing - Routine Skin Exam Present: intact, rash Comments: abdominal wall - Routine Neurological Exam Present: alert, oriented X3 Results - Labs CBC & Chem 7: 05/02/17 04:06 05/02/17 04:06 Assessment and Plan (1) Hypertension Problem details: Off all medications for > 6 months, uncontrolled Current visit: No Status: Acute (2) Acute and chronic respiratory failure with hypoxia Problem details: Chronic secondary to COPD, acute likely a combination of COPD exacerbation and volume overload/systolic heart failure exacerbation Current visit: No Status: Acute (3) Tobacco dependence syndrome Problem details: Ongoing, discussed cessation, unclear how much he is smoking routinely Current visit: No Status: Acute (4) Anxiety Problem details: Severe and chronic, untreated, exacerbated by dyspnea Current visit: No Status: Acute (5) COPD exacerbation Current visit: Yes Status: Acute (6) Congestive heart failure Current visit: Yes Status: Acute (7) Abdominal wall cellulitis Current visit: Yes Status: Acute Assessment and Plan: ASSESSMENT: Acute diastolic heart failure COPD exacerbation with acute on chronic hypoxic and hypercapnic respiratory failure Abdominal wall cellulitis with DM2 and h/o MRSA Essential HTN Dm2, diet controlled. Class 3 obesity BMI 40.5 Hypernatremia Tobacco abuse Supratherapuetic vanc level-discontinue vanc Leukocytosis PLAN Fluid restriction, Bumex 1mg q8h, monitor renal status, strict I/O, daily weights, Metolazone x1 duoneb scheduled, prednisone, O2 with parameters Monitor labs Home medications Trend labs to closely watch renal function--patient may require drip if urine output does not increase Unclear dry weight CM provided patient with resources for outpatient medications - Physician Narrative Narrative: Date: 05/02/17 Time: 1610 Hospital Course Summary Disclaimer: The visit summary below is not to be considered part of the above Progress Note. Hospital Course: 05/01/17 Fluid restriction, Bumex 1mg q8h, monitor renal status, strict I/O, daily weights duoneb scheduled, prednisone, O2 with parameters Discontinue Vanc, monitor labs Home medications Trend labs to closely watch renal function CM provided patient with resources for outpatient medications Monitor WBC
[2017-05-02] MEDS ORDERED: ALBUTEROL/IPRATROPIUM 2.5mg-0.5mg/3ml NEB AEROSOL PRN (17:02)
[2017-05-02] MEDS: BUMETANIDE 2.5mg/10ml INJECTION IVP SCH (17:15)
[2017-05-03] MEDS: BUMETANIDE 2.5mg/10ml INJECTION IVP SCH ×2 (00:46→08:31)
[2017-05-03] MEDS: LORazepam 1 MG TABLET PO PRN (05:07)
[2017-05-03] MEDS: Oxycodone/Acetaminophen 5/325 1 TAB PO PRN (05:07)
[2017-05-03] MEDS: ALBUTEROL/IPRATROPIUM 2.5mg-0.5mg/3ml NEB AEROSOL SCH ×3 (07:52→15:11)
[2017-05-03 08:07] VITALS: BP 136/89; TEMP 95.8
[2017-05-03] MEDS: PredniSONE 20 MG TABLET PO SCH (08:30)
[2017-05-03] MEDS: ASPIRIN *EC* 81 MG TABLET PO SCH (08:30)
[2017-05-03] MEDS: SERTRALINE 25 MG TABLET PO SCH (08:31)
[2017-05-03] MEDS: ENOXAPARIN 40 MG/0.4 ML INJECTION SQ SCH (08:31)
[2017-05-03 09:01] VITALS: PULSE 77
[2017-05-03 11:50] VITALS: RESP 18; O2SAT 94
--- NOTE | 2017-05-03 13:26 | Discharge Summary ---
Discharge Information Date of admission: 04/29/17 21:58 Anticipated date of discharge: 05/03/17 Attending Physician: Melia Howell MD Primary care physician: Gray Rueda, DO - Discharge Diagnosis (1) Hypertension Status: Acute (2) Acute and chronic respiratory failure with hypoxia Status: Acute (3) Tobacco dependence syndrome Status: Acute (4) Anxiety Status: Acute (5) COPD exacerbation Status: Acute (6) Congestive heart failure Status: Acute (7) Abdominal wall cellulitis Status: Acute Acute CHF exacerbation hypervolemia COPD exacerbation - Laboratory Labs: Laboratory Tests 04/29/17 04/29/17 04/29/17 20:55 21:09 21:09 WBC 8.2 RBC 4.67 Hgb 13.1 L Hct 44.6 MCV 95.5 MCH 28.1 MCHC 29.4 L RDW Std Deviation 52.5 H Plt Count 114 L MPV 11.0 Immature Gran % (Auto) 0.2 Neut % (Auto) 74.5 H Lymph % (Auto) 14.1 L [place] % (Auto) 7.8 Eos % (Auto) 3.0 Baso % (Auto) 0.4 Neut # (Auto) 6.1 Lymph # (Auto) 1.2 [place] # (Auto) 0.6 Eos # (Auto) 0.3 Baso # (Auto) 0.0 Abs Immat Gran (auto) 0.02 Neutrophils % (Manual) Band Neutrophils % Lymphocytes % (Manual) Monocytes % (Manual) Eosinophils % (Manual) Neutrophils # (Manual) Band Neutrophils # Lymphocytes # (Manual) Monocytes # (Manual) Eosinophils # (Manual) Poikilocytosis Anisocytosis Stomatocytes RBC Morph Comment ABG pH 7.450 ABG pCO2 67 H* ABG pO2 67 L ABG HCO3 46.6 H ABG Total CO2 48.7 H ABG O2 Saturation 94.0 L ABG Base Excess 19.1 H O2 Delivery Method Nasal cannula, liter FiO2 (liters per min) 3 Turbidity < 20 Sodium 146 H Potassium 4.6 Chloride 94 L Carbon Dioxide 42 H* Anion Gap 10 BUN 9.0 Creatinine 0.7 L GFR Calculation 119 BUN/Creatinine Ratio 13 Glucose 119 H Glucometer Hemoglobin A1c Calculated Osmolality 281 H Calcium 9.2 Phosphorus Magnesium Total Bilirubin 0.70 Conjugated Bilirubin 0.00 Unconjugated Bilirubin 0.40 Icterus Index < 2 AST 20 ALT 26 Alkaline Phosphatase 86 Troponin I B-Natriuretic Peptide 2950 H Total Protein 7.5 Albumin 4.0 Globulin 3.5 Albumin/Globulin Ratio 1.1 Specimen Hemolysis < 15 Vancomycin Trough 04/29/17 04/30/17 04/30/17 21:09 04:38 15:05 WBC RBC Hgb Hct MCV MCH MCHC RDW Std Deviation Plt Count MPV Immature Gran % (Auto) Neut % (Auto) Lymph % (Auto) [place] % (Auto) Eos % (Auto) Baso % (Auto) Neut # (Auto) Lymph # (Auto) [place] # (Auto) Eos # (Auto) Baso # (Auto) Abs Immat Gran (auto) Neutrophils % (Manual) Band Neutrophils % Lymphocytes % (Manual) Monocytes % (Manual) Eosinophils % (Manual) Neutrophils # (Manual) Band Neutrophils # Lymphocytes # (Manual) Monocytes # (Manual) Eosinophils # (Manual) Poikilocytosis Anisocytosis Stomatocytes RBC Morph Comment ABG pH ABG pCO2 ABG pO2 ABG HCO3 ABG Total CO2 ABG O2 Saturation ABG Base Excess O2 Delivery Method FiO2 (liters per min) Turbidity < 20 Sodium 141 Potassium 4.4 Chloride 91 L Carbon Dioxide 42 H* Anion Gap 8 BUN 12.0 Creatinine 0.7 L GFR Calculation 119 BUN/Creatinine Ratio 17 Glucose 211 H Glucometer 197 Hemoglobin A1c Calculated Osmolality 277 Calcium 8.9 Phosphorus Magnesium 1.9 Total Bilirubin Conjugated Bilirubin Unconjugated Bilirubin Icterus Index < 2 AST ALT Alkaline Phosphatase Troponin I 0.067 0.052 B-Natriuretic Peptide Total Protein Albumin Globulin Albumin/Globulin Ratio Specimen Hemolysis < 15 < 15 Vancomycin Trough 04/30/17 05/01/17 05/01/17 20:28 05:17 05:17 WBC 16.2 H D RBC 4.84 Hgb 13.4 L Hct 45.1 MCV 93.2 MCH 27.7 MCHC 29.7 L RDW Std Deviation 53.1 H Plt Count 164 D MPV 11.8 Immature Gran % (Auto) Not performed Neut % (Auto) Not performed Lymph % (Auto) Not performed [place] % (Auto) Not performed Eos % (Auto) Not performed Baso % (Auto) Not performed Neut # (Auto) Not performed Lymph # (Auto) Not performed [place] # (Auto) Not performed Eos # (Auto) Not performed Baso # (Auto) Not performed Abs Immat Gran (auto) Not performed Neutrophils % (Manual) 76.0 H Band Neutrophils % Lymphocytes % (Manual) 17.0 L Monocytes % (Manual) 7.0 Eosinophils % (Manual) Neutrophils # (Manual) 12.3 H Band Neutrophils # Lymphocytes # (Manual) 2.8 Monocytes # (Manual) 1.1 H Eosinophils # (Manual) Poikilocytosis Anisocytosis 1+ Stomatocytes RBC Morph Comment Abnormal ABG pH ABG pCO2 ABG pO2 ABG HCO3 ABG Total CO2 ABG O2 Saturation ABG Base Excess O2 Delivery Method FiO2 (liters per min) Turbidity < 20 Sodium 139 Potassium 4.7 Chloride 90 L Carbon Dioxide 38 H Anion Gap 11 BUN 28.0 H D Creatinine 1.1 D GFR Calculation 71 BUN/Creatinine Ratio 26 Glucose 137 H Glucometer 137 Hemoglobin A1c 6.1 H Calculated Osmolality 276 Calcium 8.8 Phosphorus 3.9 Magnesium 2.0 Total Bilirubin Conjugated Bilirubin Unconjugated Bilirubin Icterus Index < 2 AST ALT Alkaline Phosphatase Troponin I B-Natriuretic Peptide Total Protein Albumin 3.7 Globulin Albumin/Globulin Ratio Specimen Hemolysis < 15 Vancomycin Trough 05/01/17 05/01/17 05/01/17 05:58 08:27 11:29 WBC RBC Hgb Hct MCV MCH MCHC RDW Std Deviation Plt Count MPV Immature Gran % (Auto) Neut % (Auto) Lymph % (Auto) [place] % (Auto) Eos % (Auto) Baso % (Auto) Neut # (Auto) Lymph # (Auto) [place] # (Auto) Eos # (Auto) Baso # (Auto) Abs Immat Gran (auto) Neutrophils % (Manual) Band Neutrophils % Lymphocytes % (Manual) Monocytes % (Manual) Eosinophils % (Manual) Neutrophils # (Manual) Band Neutrophils # Lymphocytes # (Manual) Monocytes # (Manual) Eosinophils # (Manual) Poikilocytosis Anisocytosis Stomatocytes RBC Morph Comment ABG pH ABG pCO2 ABG pO2 ABG HCO3 ABG Total CO2 ABG O2 Saturation ABG Base Excess O2 Delivery Method FiO2 (liters per min) Turbidity Sodium Potassium Chloride Carbon Dioxide Anion Gap BUN Creatinine GFR Calculation BUN/Creatinine Ratio Glucose Glucometer 132 130 Hemoglobin A1c Calculated Osmolality Calcium Phosphorus Magnesium Total Bilirubin Conjugated Bilirubin Unconjugated Bilirubin Icterus Index AST ALT Alkaline Phosphatase Troponin I B-Natriuretic Peptide Total Protein Albumin Globulin Albumin/Globulin Ratio Specimen Hemolysis Vancomycin Trough 45.66 H* 05/01/17 05/01/17 05/01/17 14:51 15:22 22:09 WBC RBC Hgb Hct MCV MCH MCHC RDW Std Deviation Plt Count MPV Immature Gran % (Auto) Neut % (Auto) Lymph % (Auto) [place] % (Auto) Eos % (Auto) Baso % (Auto) Neut # (Auto) Lymph # (Auto) [place] # (Auto) Eos # (Auto) Baso # (Auto) Abs Immat Gran (auto) Neutrophils % (Manual) Band Neutrophils % Lymphocytes % (Manual) Monocytes % (Manual) Eosinophils % (Manual) Neutrophils # (Manual) Band Neutrophils # Lymphocytes # (Manual) Monocytes # (Manual) Eosinophils # (Manual) Poikilocytosis Anisocytosis Stomatocytes RBC Morph Comment ABG pH ABG pCO2 ABG pO2 ABG HCO3 ABG Total CO2 ABG O2 Saturation ABG Base Excess O2 Delivery Method FiO2 (liters per min) Turbidity < 20 Sodium 137 Potassium 5.7 H D Chloride 93 L Carbon Dioxide 33 H Anion Gap 11 BUN 34.0 H Creatinine 1.2 GFR Calculation 64 BUN/Creatinine Ratio 28 H Glucose 183 H Glucometer 160 150 Hemoglobin A1c Calculated Osmolality 277 Calcium 9.0 Phosphorus Magnesium Total Bilirubin Conjugated Bilirubin Unconjugated Bilirubin Icterus Index < 2 AST ALT Alkaline Phosphatase Troponin I B-Natriuretic Peptide Total Protein Albumin Globulin Albumin/Globulin Ratio Specimen Hemolysis < 15 Vancomycin Trough 05/02/17 05/02/17 05/02/17 04:06 04:06 06:35 WBC 14.2 H RBC 4.82 Hgb 13.3 L Hct 43.9 MCV 91.1 MCH 27.6 MCHC 30.3 L RDW Std Deviation 52.4 H Plt Count 162 MPV 11.9 Immature Gran % (Auto) Neut % (Auto) Lymph % (Auto) [place] % (Auto) Eos % (Auto) Baso % (Auto) Neut # (Auto) Lymph # (Auto) [place] # (Auto) Eos # (Auto) Baso # (Auto) Abs Immat Gran (auto) Neutrophils % (Manual) 72.0 H Band Neutrophils % 1.0 Lymphocytes % (Manual) 12.0 L Monocytes % (Manual) 14.0 H Eosinophils % (Manual) 1.0 Neutrophils # (Manual) 10.2 H Band Neutrophils # 0.1 Lymphocytes # (Manual) 1.7 Monocytes # (Manual) 2.0 H Eosinophils # (Manual) 0.1 Poikilocytosis 1+ Anisocytosis 1+ Stomatocytes 1+ RBC Morph Comment Abnormal ABG pH ABG pCO2 ABG pO2 ABG HCO3 ABG Total CO2 ABG O2 Saturation ABG Base Excess O2 Delivery Method FiO2 (liters per min) Turbidity < 20 Sodium 138 Potassium 4.8 Chloride 93 L Carbon Dioxide 37 H Anion Gap 8 BUN 40.0 H Creatinine 1.2 GFR Calculation 64 BUN/Creatinine Ratio 33 H Glucose 127 H Glucometer 165 Hemoglobin A1c Calculated Osmolality 278 Calcium 8.7 Phosphorus 4.4 Magnesium 2.2 Total Bilirubin Conjugated Bilirubin Unconjugated Bilirubin Icterus Index < 2 AST ALT Alkaline Phosphatase Troponin I B-Natriuretic Peptide Total Protein Albumin 3.5 Globulin Albumin/Globulin Ratio Specimen Hemolysis 50 H Vancomycin Trough 05/02/17 05/02/17 05/02/17 10:56 14:35 19:57 WBC RBC Hgb Hct MCV MCH MCHC RDW Std Deviation Plt Count MPV Immature Gran % (Auto) Neut % (Auto) Lymph % (Auto) [place] % (Auto) Eos % (Auto) Baso % (Auto) Neut # (Auto) Lymph # (Auto) [place] # (Auto) Eos # (Auto) Baso # (Auto) Abs Immat Gran (auto) Neutrophils % (Manual) Band Neutrophils % Lymphocytes % (Manual) Monocytes % (Manual) Eosinophils % (Manual) Neutrophils # (Manual) Band Neutrophils # Lymphocytes # (Manual) Monocytes # (Manual) Eosinophils # (Manual) Poikilocytosis Anisocytosis Stomatocytes RBC Morph Comment ABG pH ABG pCO2 ABG pO2 ABG HCO3 ABG Total CO2 ABG O2 Saturation ABG Base Excess O2 Delivery Method FiO2 (liters per min) Turbidity Sodium Potassium Chloride Carbon Dioxide Anion Gap BUN Creatinine GFR Calculation BUN/Creatinine Ratio Glucose Glucometer 176 145 211 Hemoglobin A1c Calculated Osmolality Calcium Phosphorus Magnesium Total Bilirubin Conjugated Bilirubin Unconjugated Bilirubin Icterus Index AST ALT Alkaline Phosphatase Troponin I B-Natriuretic Peptide Total Protein Albumin Globulin Albumin/Globulin Ratio Specimen Hemolysis Vancomycin Trough 05/02/17 05/03/17 05/03/17 21:11 04:38 04:38 WBC 12.4 H RBC 4.90 Hgb 13.6 Hct 44.2 MCV 90.2 MCH 27.8 MCHC 30.8 L RDW Std Deviation 51.4 H Plt Count 162 MPV 11.5 Immature Gran % (Auto) 0.2 Neut % (Auto) 79.2 H Lymph % (Auto) 11.7 L [place] % (Auto) 8.1 Eos % (Auto) 0.6 Baso % (Auto) 0.2 Neut # (Auto) 9.8 H Lymph # (Auto) 1.5 [place] # (Auto) 1.0 H Eos # (Auto) 0.1 Baso # (Auto) 0.0 Abs Immat Gran (auto) 0.02 Neutrophils % (Manual) Band Neutrophils % Lymphocytes % (Manual) Monocytes % (Manual) Eosinophils % (Manual) Neutrophils # (Manual) Band Neutrophils # Lymphocytes # (Manual) Monocytes # (Manual) Eosinophils # (Manual) Poikilocytosis Anisocytosis Stomatocytes RBC Morph Comment ABG pH ABG pCO2 ABG pO2 ABG HCO3 ABG Total CO2 ABG O2 Saturation ABG Base Excess O2 Delivery Method FiO2 (liters per min) Turbidity < 20 Sodium 140 Potassium 3.9 D Chloride 85 L D Carbon Dioxide 43 H* Anion Gap 12 BUN 43.0 H Creatinine 1.2 GFR Calculation 64 BUN/Creatinine Ratio 36 H Glucose 153 H Glucometer 183 Hemoglobin A1c Calculated Osmolality 283 H Calcium 9.7 D Phosphorus Magnesium Total Bilirubin Conjugated Bilirubin Unconjugated Bilirubin Icterus Index < 2 AST ALT Alkaline Phosphatase Troponin I B-Natriuretic Peptide Total Protein Albumin Globulin Albumin/Globulin Ratio Specimen Hemolysis < 15 Vancomycin Trough 05/03/17 05/03/17 06:22 10:54 WBC RBC Hgb Hct MCV MCH MCHC RDW Std Deviation Plt Count MPV Immature Gran % (Auto) Neut % (Auto) Lymph % (Auto) [place] % (Auto) Eos % (Auto) Baso % (Auto) Neut # (Auto) Lymph # (Auto) [place] # (Auto) Eos # (Auto) Baso # (Auto) Abs Immat Gran (auto) Neutrophils % (Manual) Band Neutrophils % Lymphocytes % (Manual) Monocytes % (Manual) Eosinophils % (Manual) Neutrophils # (Manual) Band Neutrophils # Lymphocytes # (Manual) Monocytes # (Manual) Eosinophils # (Manual) Poikilocytosis Anisocytosis Stomatocytes RBC Morph Comment ABG pH ABG pCO2 ABG pO2 ABG HCO3 ABG Total CO2 ABG O2 Saturation ABG Base Excess O2 Delivery Method FiO2 (liters per min) Turbidity Sodium Potassium Chloride Carbon Dioxide Anion Gap BUN Creatinine GFR Calculation BUN/Creatinine Ratio Glucose Glucometer 113 159 Hemoglobin A1c Calculated Osmolality Calcium Phosphorus Magnesium Total Bilirubin Conjugated Bilirubin Unconjugated Bilirubin Icterus Index AST ALT Alkaline Phosphatase Troponin I B-Natriuretic Peptide Total Protein Albumin Globulin Albumin/Globulin Ratio Specimen Hemolysis Vancomycin Trough - Microbiology Blood cultures negative - Radiology Radiology: Date of Exam: 04/29/17 Ordering Provider: Filiberto Chappell MD Type of Exam(s): XR chest 2V Reason for Exam(s): worsened dyspnea with copd and chf hx INDICATION: worsened dyspnea with copd and chf hx PROCEDURE: CHEST 2-VIEWS UPRIGHT (PA & LAT) Encounter: Initial COMPARISON: October 07, 2016 FINDINGS: Increased interstitial markings slightly worsened from the comparison study without lobar consolidation. No pleural effusion or pneumothorax. Cardiac silhouette is moderately enlarged. Mediastinal contours are stable. Impression: Increased interstitial prominence probably representing mild to moderate pulmonary edema. History of Present Illness HPI: Patient seen via telemedicine with nursing assistance on 04/29/2017 Mr. Antonio is a 51yo man with h/o COPD, HTN, dyslipidemia, CHF last EF 2016 55%, chronic back pain, obesity class 3 BMI 40.5, and DM2 diet controlled. He has been out of medication for over a month due to cost, on disability with [employer] labs to start next month. He has still gotten O2 delivered and is on 3L NC continuously. He has had progressive edema to now the abdomen with dyspnea, orthopnea, PND, no chest pain. No fevers, chills, nausea, but new abdominal wall pain and redness over the last days. No recent abx. He was given lasix 40mg IV with urination twice thusfar, duoneb, toradol, and norflex. Objective Vital signs: Temperature 95.8 F L 05/03/17 08:00 Pulse Rate 77 05/03/17 08:00 Respiratory Rate 18 05/03/17 11:42 Blood Pressure 136/89 05/03/17 08:00 Pulse Oximetry 94 05/03/17 11:42 Rhythm: Normal Sinus Rhythm Height/Weight/BMI: Height 5 ft 10 in Weight 125.2 kg Body Mass Index 40.4 - Constitutional Present: no acute distress, obese - Routine HEENT Exam Head: Present: normocephalic, atraumatic Eye: Present: EOMI, conjunctivae pink ENT: Present: mucous membranes moist, nares patent - Routine Respiratory Exam Present: distant breath sounds. Absent: respiratory distress - Routine Cardiovascular Exam Present: RRR, no murmur - Routine Abdominal Exam Present: soft, normoactive bowel sounds. Absent: tenderness - Routine Extremities Exam Present: edema Comments: improved, 1+ - Routine Skin Exam Present: intact, dry, rash Comments: erythema of abdominal wall resolved - Routine Neurological Exam Present: alert, oriented X3, CN II-XII intact Hospital Course This is a general summary of the patient's hospital course. For more details refer to the complete medical record. Hospital course: Patient was admitted for acute exacerbation of CHF and COPD. He was placed on fluid restriction and diuresed. Initially patient did not respond to Bumex 1mg TID. Metolazone was given once with increase in bumex with good results. Patient was non compliant with fluid restriction initially but improved after discussion about the importance. Case management was consulted and discussed options with patient. Patient was given options and resources for medication resources. Daily weights were obtained and patient weight was decreasing. Patient was feeling much better and was on his baseline oxygen requirements. He was on steroids for COPD exacerbation and had 2 days to complete the course at the time of discharge. Patient was initially treated for cellulitis however abdominal wall appeared to have chronic changes. There was no pain, no warmth and patient states it has been there for an extended period. Patient was treated for several days of antibiotics which were then discontinued. Recommend close outpatient follow up with cardiology and PCP. Patient instructed to weigh himself daily and call physician if weight increases by more than 5 pounds. Patient was discharged in stable condition with all prescriptions as well as resources for medications. Time spent with patient: 25 - 35 minutes Resuscitation Status: Full Code Discharge Plan - Discharge Disposition Discharge Date: 05/03/17 Disposition: 01 Discharged Home, Self-Care *Condition: Improved Reason For Visit (Visit label in EMR): acute CHF exacerbation - Discharge Medications *Discharge Medications: New Acetaminophen [Tylenol] 325 - 650 mg PO Q5H PRN tab PRN Reason: Discomfort PredniSONE [Deltasone 20 mg] 40 mg PO WB #2 tab Continue Albuterol/Ipratropium [Duoneb] 1 unit AEROSOL Q4H PRN #14 each PRN Reason: Prn Orders Furosemide [Lasix] 1 tab PO BID #30 tab Lisinopril [Prinivil] 20 mg PO DAILY #30 tab Metoprolol Tartrate [Lopressor] 25 mg PO BIDWM #60 tab Potassium 99 mg PO BID #30 tab Sertraline [Zoloft] 50 mg PO DAILY #30 tab Furosemide [Lasix] 1 tab PO DAILY #30 tab Simvastatin [Zocor] 20 mg PO HS #30 tab - Discharge Packet/Instructions *Diet: Cardiac. Fluid restriction 2L *Activity: As tolerated *Pain Management/Treatment: Continue medications as directed *Wound Care: n/a *Expected Signs/Symptoms: None *Notify Physician if: Weight gain more than 5 pounds. Decreased urination *During Business Hours Contact: Primary care physician *After Business Hours Contact: linotype machinist apprentice physician or ED *Pending Lab/Results: No Pending Lab - Referrals/Follow Up *Referrals/Follow Up: Lee Merchant MD [Physician] - 2 Weeks (APPOINTMENT ON 05/23 AT 2PM IN [place]. ) Gray Rueda DO [Family Provider] - (Call office to schedule follow up within 7 days. Will need follow up BMP to check Cr and K level APPOINTMENT ON 05/10 AT 2:30.) - Patient Handouts Patient Handouts: [facility] [place] Congestive Heart Failure - Dismissal Complete Discharge Instructions are:: Complete Physician Narrative - Narrative Attestation Narrative: Date: 05/03/17 Time: 8198
--- NOTE | 2017-05-04 13:22 | Right on Track Program ---
Right on Track Program Date of Discharge: 05/03/17 Home Medications: Previous Rx's Medication Instructions Recorded Acetaminophen [Tylenol] 325 - 650 mg PO Q5H PRN tab 05/03/17 Furosemide [Lasix] 1 tab PO BID #30 tab 05/03/17 Furosemide [Lasix] 1 tab PO DAILY #30 tab 05/03/17 Lisinopril [Prinivil] 20 mg PO DAILY #30 tab 05/03/17 Metoprolol Tartrate [Lopressor] 25 mg PO BIDWM #60 tab 05/03/17 Potassium 99 mg PO BID #30 tab 05/03/17 PredniSONE [Deltasone 20 mg] 40 mg PO WB #2 tab 05/03/17 Sertraline [Zoloft] 50 mg PO DAILY #30 tab 05/03/17 Simvastatin [Zocor] 20 mg PO HS #30 tab 05/03/17 - Right on Track Program 24-hour phone call Date: 05/04/17 Right on Track Program: 24 Hour Follow-Up Discharge Summary Received: Yes Care Plan Received: Yes Follow Up: Follow Up Appointment Scheduled (Dr. Rueda on 05/08 (changed from date of discharge) and Dr. Merchant on 05/23 in [place]) Education: Diagnosis Education Reviewed Referral: Primary Care Physician Comments: I spoke to Gray on 05/04/17. He's doing well and he denies any problems breathing. He has a nonproductive cough. He has no questions on his discharge instructions and was very pleased with his care at [facility] [place]. He hasn't had a chance to parts picker his Rx Prednisone yet. We discussed a home visit -- he didn't think he'd have time b/c he is moving next week (he's moving back into his old house in [place]). He's agreeable to phone call f/u. Discussed With Patient and Caregiver: Yes Recommendations For Follow-up: 1. f/u with Dr. Rueda and Dr. Merchant as planned 2. continue with phone f/u
== END 2017-05-03 16:17 | disposition home or self-care (01) | DRG 291 ==
LOC: ED 20:42 → MED 21:58 → SUATTDRO 21:58 → MED 22:50
PROVIDERS: ADMIT Hospitalist; ATTEND Pediatrics

== ENCOUNTER 2017-06-09 01:55 | Inpatient (IN) ==
[2017-06-09] MEDS ORDERED: METHYLPREDNISOLONE SOD SUCC 125mg/2ml INJECTION IVP ONE (02:14)
[2017-06-09] MEDS ORDERED: ALBUTEROL/IPRATROPIUM 2.5mg-0.5mg/3ml NEB IH ONE (02:14)
--- NOTE | 2017-06-09 02:19 | Emergency Department Report ---
SOB HPI - General Chief Complaint: Shortness of Breath/Dyspnea Stated Complaint: Diff breathing all day Time Seen by Provider: 06/09/17 02:10 Source: patient, family, EMS, RN notes reviewed, old records reviewed Mode of arrival: EMS Limitations: no limitations - History of Present Illness 52yo man presents to the ER by EMS for dyspnea at rest. Pt has severe CHF and COPD. He was recently discharged from this facility (3 weeks ago) for CHF exacerbation brought on by med noncompliance (no insurance, could not purchase meds). Since being discharged, pt has been taking his lasix faithfully and some OTC potassium, but he still cannot afford his other meds. Pt has become increasingly dyspneic over the last few days. Tonight, he could not deal with his respiratory distress any more, so he called EMS. MD Complaint: shortness of breath Onset (ago): week(s) Context: medication noncompliance Severity: severe Consistency/Duration: constant Relieving factors: oxygen, rest, bronchodilators, medication Exacerbating factors: exertion, movement Known history of: COPD, asthma, congestive heart failure Associated symptoms: cough, orthopnea Treatment prior to arrival: oxygen, diuretics - Related Data Home oxygen amount: 2 liters Previous Rx's Medication Instructions Recorded Acetaminophen [Tylenol] 325 - 650 mg PO Q5H PRN tab 05/03/17 Furosemide [Lasix 20 mg Tab] 1 tab PO DAILY #30 tab 05/03/17 Furosemide [Lasix 40 mg Tab] 1 tab PO BID #30 tab 05/03/17 Lisinopril [Prinivil] 20 mg PO DAILY #30 tab 05/03/17 Metoprolol Tartrate [Lopressor] 25 mg PO BIDWM #60 tab 05/03/17 Potassium 99 mg PO BID #30 tab 05/03/17 PredniSONE [Deltasone 20 mg] 40 mg PO WB #2 tab 05/03/17 Sertraline [Zoloft] 50 mg PO DAILY #30 tab 05/03/17 Simvastatin [Zocor] 20 mg PO HS #30 tab 05/03/17 Allergies Allergy/AdvReac Type Severity Reaction Status Date / Time No Known Drug Allergies Allergy Unknown Verified 06/09/17 02:20 Review of Systems All systems: reviewed and negative except as stated Respiratory: Reports: as per HPI, cough, dyspnea, wheezes. Denies: hemoptysis, stridor [facility] Patient Stated Medical History Congestive Heart Failure Yes Hypertension Yes Asthma Yes Chronic Obstructive Pulmonary Yes Disease (COPD) Pneumonia Yes Sleep Apnea Yes Diabetes Mellitus Type 2 Yes Osteoarthritis Yes MRSA Yes Depression Yes: manic Surgical History: Heart catheterization-2015- Patent coronaries. Right Shoulder arthroscopy. cholecystectomy Family History Updates: father of HTN and etoh - Social History Smoking status: Current every day smoker Substance use type: does not use Alcohol intake frequency: does not drink Household members: children Current occupational status: disabled Current residence: Apartment/Private Home Physical Exam - Limitations Limitations: no limitations - General General appearance: alert, in distress (Respiratory), obese - Normal Exams: Head:: Normocephalic without trauma Eyes:: Pupils are PERRLA w/ EOMI, No scleral icterus, irritation, or foreign bodies noted ENMT:: No facial trauma, nasal exudates, pharyngeal erythema, or exudates are noted Neck:: Full range of motion, without adenopathy Musculoskeletal:: No tenderness, or deformity noted Neurological:: Patient is alert, and oriented - Chest Chest inspection: Present: normal inspection, symmetric chest wall rise. Absent : tenderness, rash - Respiratory Respiratory exam: Present: respiratory distress, wheezes, accessory muscle use, prolonged expiratory phase. Absent: normal lung sounds bilaterally (Decreased air movement throughout), stridor, crackles - Cardiovascular Cardiovascular exam: Present: normal rhythm, tachycardia, +S1, +S2, +S3. Absent : regular rate, normal heart sounds, rubs, gallop, clicks - Abdominal Exam Abdominal exam: Present: soft, distention (Peau de orange across lower abdomen) , normal bowel sounds. Absent: tenderness, guarding, rebound, rigidity - Skin Skin exam: Present: warm, dry, intact, rash (Diffuse venous stasis along b/l LE and lower abdomen.) - Psychiatric Psychiatric exam: Present: agitated, anxious Course Course Narrative: 0235: Pts aeration markedly improved following duoneb. Pt is grossly fluid overloaded on PE. States that his swelling has been worsening for the last week ; he did not present, because his son's GF was staying in there home until today. Pt was uncomfortable being admitted to the hospital, knowing that there were two 16yo's unsupervised in his home. - Consultations Consultation #1: Juan Pablo Telemed: Will accept for further treatment of COPD and CHF. Vital Signs Temperature 98.8 F 06/09/17 01:55 Pulse Rate 114 H 06/09/17 01:55 Respiratory Rate 28 H 06/09/17 01:55 Blood Pressure 139/97 H 06/09/17 01:55 Pulse Oximetry 95 06/09/17 01:55 Temperature 98.8 F 06/09/17 01:55 Pulse Rate 105 H 06/09/17 02:45 Respiratory Rate 24 06/09/17 02:20 Blood Pressure 137/82 06/09/17 02:45 Pulse Oximetry 97 06/09/17 02:45 Shortness of Breath/Dyspnea - Differential Diagnosis Likely: acute exacerbation of chronic obstructive airways disease, congestive heart failure, community acquired pneumonia, asthma with exacerbation - Medical Records Attestation: I reviewed the patient's medical records. - Lab Data Attestation: I reviewed the patient's lab results. Result diagrams: 06/09/17 02:35 06/09/17 02:35 Lab Results 06/09/17 06/09/17 Range/Units 02:35 02:35 WBC 9.7 (4.5-11.0) T/MM3 RBC 4.41 L (4.50-5.90) M/MM3 Hgb 11.9 L (13.5-17.5) GM/DL Hct 41.3 (41-53) % MCV 93.7 (80-100) UM3 MCH 27.0 (26-34) UUG MCHC 28.8 L (31-37) GM/DL RDW Std Deviation 54.9 H (36.9-50.2) FL Plt Count 161 (130-400) T/MM3 MPV 10.0 (9.4-12.4) UM3 Immature Gran % (Auto) 0.3 (0.0-0.5) % Neut % (Auto) 74.9 H (33-66) % Lymph % (Auto) 13.5 L (23-45) % [place] % (Auto) 8.8 (0-9.0) % Eos % (Auto) 2.1 (0-4) % Baso % (Auto) 0.4 (0-2) % Neut # (Auto) 7.3 (1.8-7.7) T/MM3 Lymph # (Auto) 1.3 (1-4.8) T/MM3 [place] # (Auto) 0.9 H (0-0.8) T/MM3 Eos # (Auto) 0.2 (0-0.5) T/MM3 Baso # (Auto) 0.0 (0-0.2) T/MM3 Abs Immat Gran (auto) 0.03 (0.00-0.03) T/MM3 Turbidity < 20 (0-20) Sodium 142 (134-144) MEQ/L Potassium 4.3 (3.6-5) MEQ/L Chloride 94 L (98-107) MEQ/L Carbon Dioxide 38 H (22-30) MEQ/L Anion Gap 10 (5-15) MEQ/L BUN 11.0 (9-20) MG/DL Creatinine 0.8 (0.8-1.5) mg/dL GFR Calculation 102 BUN/Creatinine Ratio 14 (6-26) RATIO Glucose 97 (75-110) MG/DL Calculated Osmolality 272 (261-280) MOSM/KG Calcium 9.2 (8.4-10.2) MG/DL Icterus Index < 2 (0-7) Troponin I 0.060 (0-0.12) ng/ml NT-Pro-B Natriuret Pep 2470 H (0-175) pg/mL Specimen Hemolysis < 15 (0-25) - Radiology Data Attestation: I reviewed the patient's radiology results. CXR: Stable chest. Diffuse interstitial prominence c/w pulm edema. Cardiomegaly. - EKG Data EKG #1 EKG attestation: Yes: I reviewed and interpreted this EKG. EKG shows normal: sinus rhythm, axis, intervals, QRS complexes, ST-T waves Rate: tachycardia P waves: LAE Interpretation: unchanged when compared to prior tracing (date) Disposition Clinical Impression: Acute chronic obstructive pulmonary disease with respiratory distress Congestive heart failure Qualifiers: Heart failure type: unspecified Heart failure chronicity: acute on chronic Qualified Code(s): I50.9 - Heart failure, unspecified Disposition[place] [facility] [place] Language: Bengali Condition: Improved Prescriptions: No Action Acetaminophen [Tylenol] 325 - 650 mg PO Q5H PRN tab PRN Reason: Discomfort Furosemide [Lasix 40 mg Tab] 1 tab PO BID #30 tab Lisinopril [Prinivil] 20 mg PO DAILY #30 tab Metoprolol Tartrate [Lopressor] 25 mg PO BIDWM #60 tab Potassium 99 mg PO BID #30 tab PredniSONE [Deltasone 20 mg] 40 mg PO WB #2 tab Sertraline [Zoloft] 50 mg PO DAILY #30 tab Furosemide [Lasix 20 mg Tab] 1 tab PO DAILY #30 tab Simvastatin [Zocor] 20 mg PO HS #30 tab Referrals: Gray Rueda DO [Family Provider] - Time of Disposition: 03:17 - Seen By: physician
--- OUTSIDE RECORDS SUMMARY | 2017-06-09 02:25 | External Medical Summary ---
[...] Start Date End Date Status Dosage Wheelchair [facility] 83942-124 1 Dx: J44.9, Jan 13, as directed 52 I50.20 2014 Ibuprofen [facility] 63288-490 200 MG Orally Jan 13, Feb 12, 1 tablet as 4-71 every 8 hrs, do 2014 2014 needed not take for more than 1 week at a time Results No Known Results Summary Purpose eClinicalWorks Submission
--- OUTSIDE RECORDS SUMMARY | 2017-06-09 02:25 | External Medical Summary ---
[...] Medications Results No Known Results Summary Purpose vitaMedMDinicalCheck-Cap Submission
--- OUTSIDE RECORDS SUMMARY | 2017-06-09 02:25 | External Medical Summary ---
[...] Start Date End Date Status Dosage Amoxicillin NDC 43087-752 500 MG Orally Mar 23, Apr 02, [...]
--- OUTSIDE RECORDS SUMMARY | 2017-06-09 02:25 | External Medical Summary ---
[...] Medications Results No Known Results Summary Purpose SwapBeatsinicalCazoodle Submission
--- OUTSIDE RECORDS SUMMARY | 2017-06-09 02:25 | External Medical Summary ---
[...] Start End Status Dosage System Date Cymbalta [facility] 20167-9 60 MG Orally 1 capsule 237-01 [place] [address]-1 20 MG Orally 2 tablet 268-01 [place] [address]-2 500-50 MCG/DOSE 1 puff 697-00 Inhalation Twice a day [place] NDC 59893-7 10 MEQ Orally July 15, July 22, 1 tablet 043-00 Twice a day 2014 [place] [address]-3 0.02 % Oct 22, Jan 11, as 989-62 Inhalation 2013 2014 directed every 6 hours as [place] [address]-8 108 (90 Base) Sept 26, 2 puffs as 851-85 MCG/ACT 2012 needed Inhalation every 4 hrs PredniSONE NDC 70389-4 10 MG Orally July 15, July 18, 6 tabs 017-20 2014 2014 daily x3 days, then 4 tabs daily x3 days, then 3 tabs daily x3 days, then 2 tabs daily x3 days, then 1 tab daily x3 day Albuterol Sulfate NDC 68226-1 (2.5 MG/3ML) Oct 22, 3 ml 990-52 0.083% 2013 Inhalation every 6 hrs as needed for COPD Ethan Dumont NDC 26347-6 100 MG Orally July 15September 09 capsule 122-01 Three times a 2014 07, as needed day as needed 2014 for cough/congestio n Levaquin NDC 81467-9 500 MG Orally July 15, July 22, 1 tablet 525-10 Once a day 2014 2014 Hydrochlorothiazide NDC 46270-0 25 MG Orally 1 capsule 256-01 Once a day Lasix NDC 23667-9 40 MG Orally July 15, 1 tablet 060-13 every 12 hours 2014 NIFEdipine ER NDC 76419-9 60 MG Orally 1 tablet 058-01 Once a day Nitrostat NDC 97896-8 0.4 MG 1 tablet 418-13 Sublingual under the every 0 hrs tongue and allow to dissolve as needed Clonidine HCl NDC 39317-1 0.2 MG Orally Apr 28, 1 tablet 128-10 BID 2013 Procedures Procedure Coding System Code Date COMPREHENSIVE METABOLIC PANEL CPT-4 25290 July 15, 2014 TSH CPT-4 33865 July 15, 2014 COMPLETE CBC W/AUTO DIFF WBC CPT-4 27975 July 15, 2014 HEMOGLOBIN AIC CPT-4 27776 July 15, 2014 OFFICE VISIT, EST-MOD. COMPLEXITY (25 MIN) CPT-4 99305 July 15, 2014 D DIMER QUANT CPT-4 57613 July 15, 2014 URINALYSIS, IN HOUSE CPT-4 95558 July 15, 2014 CREATINE KINASE (CPK) CPT-4 58055 July 15, 2014 TROPONIN CPT-4 14830 July 15, 2014 Vital Signs Date/Time: July 15, 2014 Height 69 in Weight 299.8 lbs Temperature 97.8 F Blood Pressure Diastolic 108 mm Hg Blood Pressure Systolic 148 mm Hg Cardiac Monitoring Heart Rate 112 /min BMI 44.27 Index Oximetry 97 % Respiratory Rate 26 /min Results No Known Results Summary Purpose eClinicalWorks Submission
--- OUTSIDE RECORDS SUMMARY | 2017-06-09 02:25 | External Medical Summary ---
[...] Medications Results No Known Results Summary Purpose VideoliciousinicalPCA Audit Submission
--- OUTSIDE RECORDS SUMMARY | 2017-06-09 02:25 | External Medical Summary ---
[...] Status Dosage [place] [address]-5 50 MG Orally Active 1 capsule 257-01 Once a day Lisinopril NDC 23322-1 20 MG Orally Active 2 tablet 268-01 [place] [address]-1 (2.5 MG/3ML) Active 3 ml 990-52 0.083% Inhalation PRN Advair Diskus NDC 12632-9 500-50 MCG/DOSE Active 1 puff 697-00 Inhalation [place] [address]-3 300MG Orally May Active 3 tabs 608-16 Three times a 2012 [place] [address]-0 0.2 MG Orally Apr 28, Active 1 tablet 128-10 BID 2013 [place] [address]-6 108 (90 Base) Dec 05, Active 2 puffs as 851-85 MCG/ACT 2012 needed Inhalation every 4 [place] [address]-2 60 MG Orally Active 1 capsule 237-01 [place] [address]-1 10 MG Orally May Active 1 tablet 674-10 Once a day 2013 Ipratropium [place] [facility] 61340-8 0.02 % Oct 24, Active as 989-62 Inhalation PRN 2013 directed [place]er [facility] 55817-1 10-325 MG Oct 23, Active 1-2 tablet 035-00 Orally every 6 2013 [place] [address]-0 0.4 MG Active 1 tablet 418-13 Sublingual under the every 0 hrs tongue and allow to dissolve [place] [address]-9 60 MG Orally Active 1 tablet 058-01 Once a day Citalopram [facility] 13763-8 20 MG Orally Feb 11, Active 1 [...]
--- OUTSIDE RECORDS SUMMARY | 2017-06-09 02:26 | External Medical Summary ---
:1965 [facility] Providers Name Role Phone [...] Status Dos[place] [address]-3 40 MG Orally July 15, 1 tablet 060-13 Twice every day 2014 [place] [address]-8 60 MG Orally 1 capsule 237-01 [place] [address]-6 20 MG Orally 2 tablet 268-01 Once a day [place]air [place]us NDC 66648-3 500-50 MCG/DOSE Dec 14, puff 697-00 Inhalation 2014 Twice a day. samples given today. Clonidine HCl NDC 93700-6 0.2 MG Orally Apr 28, 1 tablet 128-10 BID 2013 NIFEdipine ER NDC 67549-0 60 MG Orally 1 tablet 058-01 Once a day Spironolactone NDC 87643-7 25 MG Orally 1 tablet 803-11 Once a day Carvedilol NDC 43970-0 6.25 MG Orally 1 tablet 135-01 Twice a day with food Nebulizer NDC 54232-7 Dec 14, as 8249 2014 directed Nebulizer/Tubing/Mouth NDC 19298-4 Dec 14, as piece 9000 2014 directed Ipratropium [place] NDC 82111-9 0.02 % Oct 22Jan 11, as 989-62 Inhalation 2013 2014 directed every 6 hours as needed for COPD. Hydrochlorothiazide NDC 79433-5 25 MG Orally 1 capsule 256-01 [place] [address]-1 18-103 MCG/ACT October 01, 1 puff 4 013-14 Inhalation 2015 times a every 6 hours day as as needed for needed for shortness of SOA breath/wheezing Nitrostat NDC 82235-3 0.4 MG 1 tablet 418-13 Sublingual under the every 5 min x 3 tongue and doses as needed allow to for chest pain. dissolve if chest pain call 911 Tessalalina Dumont NDC 02797-3 100 MG Orally 1 capsule 122-01 Three times a [place] [address]-5 (2.5 MG/3ML) Oct 22, 3 ml 990-52 0.083% 2013 Inhalation every 6 hrs as needed for COPD Advair Diskus NDC 80861-7 500-50 MCG/DOSE 1 puff 697-00 Inhalation Twice a day Procedures Procedure Coding System Code Date COMPREHENSIVE METABOLIC PANEL CPT-4 17155 Dec 28, 2014 Results No Known Results Summary Purpose eClinicalWorks Submission
--- OUTSIDE RECORDS SUMMARY | 2017-06-09 02:26 | External Medical Summary ---
[...] Status Dosage System Date Date Advair Diskus [facility] 81107-9 500-50 MCG/DOSE Dec 14, 1 puff 697-00 Inhalation 2014 Twice a day[place] [address]-6 60 MG Orally 1 capsule 237-01 [place] [address]-9 100 MG Orally 1 capsule 122-01 Three times a [place] [address]-4 0.2 MG Orally Apr 28, 1 tablet 128-10 BID 2013 [place] [address]-0 60 MG Orally 1 tablet 058-01 [place] [address]-1 20 MG Orally 2 tablet 268-01 [place] [address]-4 1 Dec 14, as 8249 2014 directed Lasix NDC 69418-6 40 MG Orally July 15, 1 tablet 060-13 Twice every day 2014 Ipratropium [place] NDC 33323-0 0.02 % Oct 22Jan 11, as 989-62 Inhalation 2013 2014 directed every 6 hours as needed for COPD. Spironolactone NDC 06961-4 25 MG Orally 1 tablet 803-11 Once a day Carvedilol NDC 22679-6 6.25 MG Orally 1 tablet 135-01 Twice a day with food Albuterol Sulfate NDC 46337-8 (2.5 MG/3ML) Oct 22, 3 ml 990-52 0.083% 2013 Inhalation every 6 hrs as needed for COPD Nitrostat NDC 63466-6 0.4 MG 1 tablet 418-13 Sublingual under the every 5 min x 3 tongue and doses as needed allow to for chest pain. dissolve if chest pain call 911 [place]chlorothiazide [place] 89324-6 25 MG Orally 1 capsule 256-01 Once a day Combivent NDC 47411-4 18-103 MCG/ACT October 01, 1 puff 4 013-14 Inhalation 2015 times a every 6 hours day as as needed for needed for shortness of SOA breath/wheezing Advair Diskus NDC 82893-0 500-50 MCG/DOSE 1 puff 697-00 Inhalation Twice a day Nebulizer/Tubing/Mouth NDC 80651-7 1 Dec 14, as piece 9000 2014 directed Procedures Procedure Coding System Code Date OFFICE VISIT, EST-LOW COMPLEXITY (15 MIN.) CPT-4 31008 Dec 28, 2014 Vital Signs Date/Time: Dec 28, 2014 Height 69 in Weight 259 lbs Temperature 97.6 F Blood Pressure Diastolic 56 mm Hg Blood Pressure Systolic 96 mm Hg Cardiac Monitoring Heart Rate 69 /min BMI 38.24 Index Oximetry 87 % Respiratory Rate 20 /min Results No Known Results Summary Purpose eClinicalWorks Submission
--- OUTSIDE RECORDS SUMMARY | 2017-06-09 02:26 | External Medical Summary ---
[...] Status Dosage System Date NIFEdipine [place] NDC 41771-7 60 MG Orally Active 1 tablet 058-01 Once a day BusPIRone HCl NDC 72300-8 10 MG Orally 1 Jan 13, Active 1 tablet 054-01 two x /day for 2013 2 wks, then 2 twice a day for 2 wks then 3 per day Ventolin HFA NDC 26936-5 108 (90 Base) Dec 19, Active 2 puffs as 682-20 MCG/ACT 2013 needed Inhalation every 4 hrs Loratadine NDC 96784-5 10 MG Orally May Active 1 tablet 674-10 Once a day 2013 [place] [address]-5 (2.5 MG/3ML) Oct 22, Active 3 ml 990-52 0.083% 2013 Inhalation [place] [address]-0 10-325 MG Mar 15, Active 1-2 tablet 035-00 Orally every 6 2014 as needed hrs (FILL ON/AFTER 02/17/14) [place] [address]-7 20 MG Orally Active 2 tablet 268-01 [place] [address]-9 300MG Orally May Active 3 tabs 608-16 Three times a 2012 [place] [address]-4 0.2 MG Orally Apr 28, Active 1 tablet 128-10 BID 2013 [place] [address]-7 108 (90 Base) Dec 05, Active 2 puffs as 851-85 MCG/ACT 2012 needed Inhalation every 4 [place] [address]-5 20 MG Orally Feb 11, Active 2 tablets Hydrobromide 741-01 Once a day 2012 [place] [address]-1 60 MG Orally Active 1 capsule 237-01 Twice [place] [address]-2 0.02 % Oct 22, Active as 989-62 Inhalation 2013 [place] [address]-6 0.4 MG Active 1 tablet 418-13 Sublingual under the every 0 hrs tongue and allow to [place] as [place] [address]-2 50 MG Orally Active 1 capsule 257-01 [place] [address]-9 500-50 MCG/DOSE Active 1 puff 697-00 Inhalation Twice a day Procedures Procedure Coding System Code Date FLU VACCINE NO PRESERV 3 & > CPT-4 77611 Feb 13, 2014 ADMINISTRATION, 1ST IMMUNIZATION CPT-4 30501 Feb 13, 2014 OFFICE VISIT, EST-MOD. COMPLEXITY (25 MIN) CPT-4 77179 Feb 13, 2014 [facility] CPT [...]
--- OUTSIDE RECORDS SUMMARY | 2017-06-09 02:26 | External Medical Summary ---
[...] End Status Dosage System Date Date Lisinopril [facility] 70257-5 20 MG Orally 2 tablet 268-01 Once a day Ipratropium [place] [facility] 42103-4 0.02 % Oct 22, Jan 11, as directed 989-62 Inhalation 2013 2014 every 6 hours as needed for COPD. Combivent [facility] 75895-6 18-103 MCG/ACT October 01, 1 to 2 013-14 Inhalation 2014 puffs every 6 hours as needed for shortness of breath/wheezing Potassium Chloride [facility] 43866-7 20 MEQ Orally 1 356-01 Twice [place] [address]-9 60 MG Orally 1 tablet 058-01 [place] [address]-1 25 MG Orally 1 capsule 256-01 [place] [address]-6 40 MG Orally July 15, 1 tablet 060-13 Twice every day 2014 Cymbalta [facility] 72366-7 60 MG Orally 1 capsule 237-01 [place] [address]-9 0.4 MG 1 tablet 418-13 Sublingual under the every 0 hrs tongue and allow to dissolve as [place] [address]7622-3 100 MG Orally 1 capsule 122-01 Three times a as needed day Clonidine [place]DC 53970-9 0.2 MG Orally Apr 28, 1 tablet 128-10 BID 2013 Albuterol Sulfate NDC 99293-6 (2.5 MG/3ML) Oct 22, 3 ml 990-52 0.083% 2013 Inhalation every 6 hrs as needed for COPD Procedures Procedure Coding System Code Date COMPLETE CBC W/AUTO DIFF WBC CPT-4 49892 Oct 29, 2014 COMPREHENSIVE METABOLIC PANEL CPT-4 68714 Oct 29, 2014 URINALYSIS, IN HOUSE CPT-4 77689 Oct 29, 2014 TSH CPT-4 94447 Oct 29, 2014 LIPID PANEL CPT-4 56317 Oct 29, 2014 IH MicroAlb/Creat Ratio, Urine CPT-4 69304 Oct 29, 2014 IH MicroAlb/Creat Ratio, Urine CPT-4 56130 Oct 29, 2014 Results No Known Results Summary Purpose eClinicalWorks Submission
--- OUTSIDE RECORDS SUMMARY | 2017-06-09 02:26 | External Medical Summary ---
[...] End Status Dosage System Date Date Cymbalta FORMERLY NAMED [facility] [address]-10 60 MG Orally 1 capsule Twice a day Hydrochlorothiazide FORMER[facility] NAMED [facility] [address]-40 25 MG Orally 1 capsule Once a day Nebulizer/Tubing/Mout FORMERLY NAMED [facility] [address]361 1 DX: J44.9 Jan 12, as hpiece 2014 directed Spironolactone FORMERLY NAMED [facility] [address]-05 25 MG Orally 1 tablet Once a day Oxygen ND 0 2 NC 2-3 continuous liters Advair Diskus FORMERLY NAMED [facility] [id number] 500/50 1 puff Inhalation Twice a day Albuterol Sulfate FORMERLY NAMED [facility] [address]-99 (2.5 MG/3ML) Oct 22, 3 ml 0.083% 2013 Inhalation every 6 hrs as needed for COPD Prilosec OTC FORMERLY NAMED [facility] [address]56-[address]162 20 MG Orally Apr 13, 1 tablet Once a day. 2016 take while on prednisone. ProAir HFA FORMERLY NAMED [facility] [address]-50 108 (90 Base) Apr 01, 1-2 puffs MCG/ACT 2015 as needed Inhalation every 6hrs Nebulizer/Tubing/Mout FORMERLY NAMED [facility] [address]294 Dec 14, as hpiece 2015 directed Nebulizer FORMER[facility] NAMED [facility] 47387-49650 1 Dec 14, as 2015 directed Clonidine HCl FORMERLY NAMED [facility] [address]-98 0.2 MG Orally Apr 28, 1 tablet BID 2013 Nitrostat FORMERLY NAMED [facility] [address]-11 0.4 MG 1 tablet Sublingual under the every 5 min x tongue 3 doses as and allow needed for to chest pain. if dissolve chest pain call 911 Carvedilol FORMERLY NAMED [facility] [address]-60 6.25 MG Orally 1 tablet Twice a day with food Lasix FORMERLY NAMED [facility] [address]-55 40 MG Orally July 15, 1 tablet Twice every 2014 day Lisinopril FORMERLY NAMED [facility] [address]-80 20 MG Orally 2 tablet Once a day NIFEdipine ER FORMERLY NAMED [facility] [address]-54 60 MG Orally 1 tablet Once a day Nebulizer FORMERLY NAMED [facility] 61598-[address]991 1 DX:J44.9 Jan 12, as 2014 directed Procedures Procedure Coding System Code Date LIPID PANEL CPT-4 68301 July 08, 2015 TSH CPT-4 17554 July 08, 2015 HEMOGLOBIN A1C, IN HOUSE CPT-4 16414 July 08, 2015 Results No Known Results Summary Purpose eClinicalWorks Submission
--- OUTSIDE RECORDS SUMMARY | 2017-06-09 02:26 | External Medical Summary ---
[...] Start Date End Date Status Dosage Albuterol [facility] 74044-028 (2.5 MG/3ML) Oct 13, 3 ml Sulfate 0-52 0.083% Inhalation 2013 every 6 hrs as needed for COPD Results No Known Results Summary Purpose eClinicalWorks Submission
--- OUTSIDE RECORDS SUMMARY | 2017-06-09 02:26 | External Medical Summary ---
[...] Start Date End Date Status Dosage Nitrostat [facility] 91159-680 0.4 MG Sublingual 1 tablet 8-13 every 5 min x 3 under the doses as needed tongue and for chest pain. allow to if chest pain dissolve call 911 Results No Known Results Summary Purpose [employer] [employer] Submission
--- OUTSIDE RECORDS SUMMARY | 2017-06-09 02:26 | External Medical Summary ---
[...] Dosage System Date Date Ethan Dumont NDC 70138-3 100 MG Orally July 15September 09 capsule 122-01 Three times a 2014 05, as needed day as needed 2014 for cough/congestio n NIFEdipine ER NDC 18708-1 60 MG Orally 1 tablet 058-01 Once a day Albuterol Sulfate NDC 18387-8 (2.5 MG/3ML) Oct 22, 3 ml 990-52 0.083% 2013 Inhalation every 6 hrs as needed for COPD Lasix NDC 40608-3 40 MG Orally July 15, 1 tablet 060-13 every 8 hours 2014 PredniSONE NDC 22428-7 10 MG Orally July 15, July 18, 6 tabs 017-20 2014 2014 daily x3 days, then 4 tabs daily x3 days, then 3 tabs daily x3 days, then 2 tabs daily x3 days, then 1 tab daily x[place] [address]-6 10 MEQ Orally July 15July 22, 1 tablet 043-00 every 8 hours 2014 2014 [place] [address]-1 0.02 % Oct 22Jan 11, as 989-62 Inhalation 2013 2014 directed every 6 hours [place]. [place] [address]-0 20 MG Orally 2 tablet 268-01 Once a day Nitrostat NDC 08171-1 0.4 MG 1 tablet 418-13 Sublingual under the every 0 hrs tongue and allow to [place] [address]-2 60 MG Orally 1 capsule 237-01 [place]ice [place] [address]-7 25 MG Orally 1 capsule 256-01 [place] [address]-0 500 MG Orally July 15July 22, 1 tablet 525-10 Once a day 2014 2014 [place] [address]-8 0.2 MG Orally Apr 28, 1 tablet 128-10 BID 2013 [place] [address]-9 500-50 MCG/DOSE 1 puff 697-00 Inhalation [place] [address]-8 108 (90 Base) Dec 05, 2 puffs as 851-85 MCG/ACT 2012 needed Inhalation every 4 hrs Procedures Procedure Coding System Code Date OFFICE VISIT, EST-MOD. COMPLEXITY (25 MIN) CPT-4 10438 July 17, 2014 BASIC METABOLIC PANEL CPT-4 33142 July 17, 2014 Vital Signs Date/Time: July 17, 2014 Height 69 in Weight 300.0 lbs Temperature 97.9 F Blood Pressure Diastolic 89 mm Hg Blood Pressure Systolic 150 mm Hg Cardiac Monitoring Heart Rate 116 /min BMI 44.30 Index Oximetry 96 % Respiratory Rate 28 /min Results No Known Results Summary Purpose eClinicalWorks Submission
--- OUTSIDE RECORDS SUMMARY | 2017-06-09 02:27 | External Medical Summary ---
[...] System Code Date D DIMER QUANT CPT-4 92662 Apr 14, 2015 Results No Known Results Summary Purpose [employer] Submission
--- OUTSIDE RECORDS SUMMARY | 2017-06-09 02:27 | External Medical Summary ---
[...] Medications Results No Known Results Summary Purpose [employer] Submission
--- OUTSIDE RECORDS SUMMARY | 2017-06-09 02:27 | External Medical Summary ---
[...] Start Date End Date Status Dosage Albuterol [facility] 87348-921 (2.5 MG/3ML) Oct 13, 3 ml Sulfate 0-52 0.083% Inhalation 2013 every 6 hrs as needed for COPD Results No Known Results Summary Purpose [employer] Submission
--- OUTSIDE RECORDS SUMMARY | 2017-06-09 02:27 | External Medical Summary ---
[...] Medications Results No Known Results Summary Purpose [employer] Submission
--- OUTSIDE RECORDS SUMMARY | 2017-06-09 02:27 | External Medical Summary ---
[...] End Status Dosage System Date Ethan Dumont [facility] 18630-5 100 MG Orally 1 capsule 122-01 Three times a as needed day Combivent [facility] 76023-3 18-103 MCG/ACT October 01, to 2 013-14 Inhalation 2014 puffs every 6 hours as needed for shortness of breath/[place] [address]-4 0.2 MG Orally Apr 28, tablet 128-10 BID 2013 [place] [address]-8 25 MG Orally 1 capsule 256-01 Once a day Potassium Chloride [facility] 68405-1 20 MEQ Orally 1 356-01 [place] [address]-2 40 MG Orally July 15, tablet 060-13 Twice every day 2014 Cymbalta NDC 65872-1 60 MG Orally 1 capsule 237-01 Twice a day Nitrostat NDC 02212-7 0.4 MG 1 tablet 418-13 Sublingual under the every 0 hrs tongue and allow to dissolve as needed NIFEdipine ER NDC 43460-9 60 MG Orally 1 tablet 058-01 Once a day Ipratropium [place] NDC 93013-0 0.02 % Oct 22, Jan 11, as directed 989-62 Inhalation 2013 2014 every 6 hours as needed for COPD. Lisinopril NDC 74787-7 20 MG Orally 2 tablet 268-01 Once a day Albuterol Sulfate NDC 46738-3 (2.5 MG/3ML) Oct 22, 3 ml 990-52 0.083% 2013 Inhalation every 6 hrs as needed for COPD Procedures Procedure Coding System Code Date OFFICE VISIT, EST-MOD. COMPLEXITY (25 MIN) CPT-4 88369 October 01, 2014 Vital Signs Date/Time: October 01, 2014 Height 69 in Weight 263.8 lbs Temperature 97.9 F Blood Pressure Diastolic 80 mm Hg Blood Pressure Systolic 126 mm Hg Cardiac Monitoring Heart Rate 89 /min BMI 38.95 Index Oximetry 94 % Respiratory Rate 22 /min Results No Known Results Summary Purpose eClinicalWorks Submission
--- OUTSIDE RECORDS SUMMARY | 2017-06-09 02:27 | External Medical Summary ---
[...] Date Status Dosage System Date Ipratropium NDC 19296-18 0.02 % Oct 22July 31, as directed [place] 89-62 Inhalation 2013 2014 [place] [address]-09 (2.5 MG/3ML) Oct 22, 3 ml Sulfate 90-52 0.083% 2013 Inhalation Three times a day Results No Known Results Summary Purpose [employer] Submission
--- OUTSIDE RECORDS SUMMARY | 2017-06-09 02:27 | External Medical Summary ---
[...] End Status Dosage System Date Date Hydrochlorothiazide [facility] 95630-6 25 MG Orally 1 capsule 256-01 [place] [address]-9 0.2 MG Orally Apr 28 tablet 128-10 BID [place] [address]-6 18-103 MCG/ACT October 01 puff 4 013-14 Inhalation 2015 times a every 6 hours day as as needed for needed for shortness of SOA breath/[place] [address]-9 20 MEQ Orally 1 356-01 [place] [address]-4 60 MG Orally 1 capsule 237-01 [place] [address]-6 40 MG Orally July 15, 1 tablet 060-13 Twice every day 2014 Nebulizer NDC 18108-6 1 Dec 14, as 8249 2014 directed Advair Diskus NDC 17445-9 500-50 MCG/DOSE 1 puff 697-00 Inhalation Twice a day Nitrostat NDC 98392-9 0.4 MG 1 tablet 418-13 Sublingual under the every 0 hrs tongue and allow to dissolve as needed NIFEdipine ER NDC 80866-6 60 MG Orally 1 tablet 058-01 Once a day Advair Diskus NDC 89884-6 500-50 MCG/DOSE Dec 14, 1 puff 697-00 Inhalation 2014 Twice a day. samples given today. Ethan Dumont NDC 32577-7 100 MG Orally 1 capsule 122-01 Three times a as needed day Nebulizer/Tubing/Mouth NDC 82137-4 1 Dec 14, as piece 9000 2014 directed Ipratropium [place] NDC 96186-0 0.02 % Oct 22Jan 11, as 989-62 Inhalation 2013 2014 directed every 6 hours as needed for COPD. Lisinopril NDC 80094-7 20 MG Orally 2 tablet 268-01 Once a day Albuterol Sulfate NDC 78023-9 (2.5 MG/3ML) Oct 22, 3 ml 990-52 0.083% 2013 Inhalation every 6 hrs as needed for COPD Procedures Procedure Coding System Code Date OFFICE VISIT, EST-MOD. COMPLEXITY (25 MIN) CPT-4 89306 Dec 14, 2014 Vital Signs Date/Time: Dec 14, 2014 Height 69 in Weight 254.12 lbs Temperature 98.0 F Blood Pressure Diastolic 84 mm Hg Blood Pressure Systolic 136 mm Hg Cardiac Monitoring Heart Rate 83 /min BMI 37.52 Index Oximetry 94 % Respiratory Rate 16 /min Results No Known Results Summary Purpose eClinicalWorks Submission
--- OUTSIDE RECORDS SUMMARY | 2017-06-09 02:27 | External Medical Summary ---
[...] Medications Results No Known Results Summary Purpose [email or web address] Submission
[2017-06-09] MEDS ORDERED: FUROSEMIDE 100 MG/10 ML INJECTION IVP ONE (02:34)
[2017-06-09] MEDS ORDERED: ALBUTEROL 2.5mg/3ml (0.083%) NEB AEROSOL ONE (02:35)
[2017-06-09] MEDS: SALINE FLUSH 10ml SYRINGE IVF PRN ×2 (02:44→16:04)
[2017-06-09] MEDS ORDERED: METOCLOPRAMIDE 10mg/2ml INJECTION IVP PRN (03:33)
[2017-06-09] MEDS ORDERED: SENNA + DOCUSATE TABLET PO PRN (03:33)
[2017-06-09 03:54] VITALS: BMI 44.4
--- NOTE | 2017-06-09 05:19 | History & Physical Report ---
History of Present Illness Date: 06/09/17 Chief complaint: SOB HPI: The pt is a morbidly obese 52 yo who has dilated cardiomyopathy with EF of 30% and was just discharged 3 weeks ago who presents to the ER tonight c/o SOB, orthopnea and markedly enlarge abdmominal girth. He states he has been taking his lasix and OTC potassium but not any of his other meds due to lack of insurance. Review of Systems - Constitutional Constitutional: Absent: chills, fever(s) - Cardiovascular Cardiovascular: Present: edema. Absent: chest pain, palpitations - Gastrointestinal Gastrointestinal: Present: abdominal pain. Absent: nausea, vomiting Past Medical History Medical History: Medical History (Last Updated 06/09/17 @ 05:21 by Manny Stout MD) CHF (congestive heart failure) Coronary artery disease Sleep apnea Surgical History: Heart catheterization-2015- Patent coronaries. Right Shoulder arthroscopy. cholecystectomy Family History: No Significant Family History - Social History Smoking status: Former smoker Substance use type: does not use Alcohol intake frequency: does not drink Housing: house Household members: children Medications Home Medications Medication Instructions Recorded Confirmed Type Acetaminophen [Tylenol] 325 - 650 mg PO Q5H PRN tab 05/03/17 06/09/17 Rx Furosemide [Lasix 20 mg Tab] 1 tab PO DAILY #30 tab 05/03/17 06/09/17 Rx Furosemide [Lasix 40 mg Tab] 1 tab PO BID #30 tab 05/03/17 06/09/17 Rx Lisinopril [Prinivil] 20 mg PO DAILY #30 tab 05/03/17 06/09/17 Rx Metoprolol Tartrate [Lopressor] 25 mg PO BIDWM #60 tab 05/03/17 06/09/17 Rx Potassium 99 mg PO BID #30 tab 05/03/17 06/09/17 Rx PredniSONE [Deltasone 20 mg] 40 mg PO WB #2 tab 05/03/17 06/09/17 Rx Sertraline [Zoloft] 50 mg PO DAILY #30 tab 05/03/17 06/09/17 Rx Simvastatin [Zocor] 20 mg PO HS #30 tab 05/03/17 06/09/17 Rx Allergies Allergy/AdvReac Type Severity Reaction Status Date / Time No Known Drug Allergies Allergy Unknown Verified 06/09/17 02:20 Exam Vital Signs: Temperature 97.8 F 06/09/17 03:50 Pulse Rate 110 H 06/09/17 03:50 Respiratory Rate 22 06/09/17 04:20 Blood Pressure 140/84 H 06/09/17 03:50 Pulse Oximetry 95 06/09/17 04:20 Height/Weight/BMI: Height 1.78 m Weight 140.4 kg Body Mass Index 44.4 - Constitutional Present: mild distress, morbidly obese - Routine HEENT Exam Head: Present: normocephalic - Routine Respiratory Exam Present: accessory muscle use, CTA bilaterally, prolonged expiratory phase, distant breath sounds - Routine Cardiovascular Exam Present: RRR, no murmur - Routine Abdominal Exam Present: soft, normoactive bowel sounds, non tender, distended - Routine Extremities Exam Present: edema, full ROM, tenderness Results - Labs CBC & Chem 7: 06/09/17 02:35 06/09/17 02:35 Assessment and Plan (1) Dilated cardiomyopathy Problem details: EF 30% on TTE done 10/2015; global hypokinesis and dilated LV; EF 55% 09/2016 Current visit: No Status: Acute (2) Hypertension Problem details: Off all medications for > 6 months, uncontrolled Current visit: No Status: Acute (3) COPD, severe Problem details: on 3L NC chronically at home Current visit: No Status: Chronic (4) Acute and chronic respiratory failure with hypoxia Problem details: Chronic secondary to COPD, acute likely a combination of COPD exacerbation and volume overload/systolic heart failure exacerbation Current visit: No Status: Acute Assessment and Plan: unfortunate readmission for medical noncompliance. Will start on Lasix 60 IV Q6 , monitor K, rstart home meds, S.W. consult, on telemetry, oxygen, consider echo at next business day. no signs of cellulitis but will need to keep a close eye on this Resuscitation Status: Full Code - Physician Narrative Physician: Melissa Ramírez MD Narrative: Date: 06/09/17 Time: 114 Dr. Guerra's note reviewed. Mr. Antonio interviewed and examined. CC: Dyspnea, increased swelling HPI: Mr. Antonio is a 52-year-old male well-known to the hospital medicine service from prior hospitalizations. He has a dilated cardiomyopathy with ejection fraction of 30% and 10/25 improving to 55% in 09/25 and history of noncompliance due to lack of insurance and transportation. He was last hospitalized partially 5 weeks ago with volume overload/CHF. At that time he indicated he would become eligible for Medicaid on 05/10 but now indicates that Medicaid will be eligible on 06/10. Since discharge on 05/04/17 the patient has had increased fluid retention accompanied by increasing dyspnea. He describes increasing abdominal girth and increasing edema in his legs. He is winded when he stands up. The only medication he has been taking since discharge his Lasix and potassium. He is chronically on 3 L supplemental oxygen which he has been using at home. He denies chest pain, fevers, chills, or wheezing. He reports rapid heart rates while home and that EMS switched him to a nonrebreather mask for transportation to the emergency room last night. The patient's weight has increased from 125.2 kg last month at discharge to admission weight of 142.4 kg. He continues to describe difficulty breathing due to increased abdominal girth this morning. PH: agree with that recorded above with additional history of COPD, sleep apnea , DJD, depression/anxiety, MRSA cellulitis of the abdominal wall, and diet- controlled diabetes. SH: He smokes occasionally but indicates it is hard to smoke when he can't breathe, he denies alcohol or illicit drug use. The patient is on disability and lacks transportation to follow up with his primary care physician-Dr. Rueda , or his guest relations manager-Dr. Merchant. He is a full code and does not have a DECISION maker. FH: Father has hypertension and history of strokes with possible aneurysm ROS: 10 point review blurry vision, palpitations, mild nausea for several days anxiety, and peripheral neuropathy/hypersensitivity primarily affecting his feet. Remainder of review of systems as per history of present illness or negative. EXAM: General-mildly dyspneic, lying with head of bed elevated 25, speaking in 4-5 word phrases; 97.8, 109, 28, 166/110, 96% 3 L HEENT-PERRL, EOMI without nystagmus, conjunctiva clear, sclera anicteric, conjugate gaze, facial structures symmetric, oropharynx clear, neck supple and without adenopathy Lungs-respirations nonlabored, good airflow, faint crackles at the bases posteriorly but breath sounds otherwise clear Cardiac-regular rhythm, S1-S2, low-grade tachycardia Abd-obese, soft, edema present lower bowel wall, faint erythema but no warmth lower bowel wall, bowel sounds present Ext-+2-3 pitting edema bilateral lower extremities Skin-faint erythema over the lower abdomen without drainage or wounds Neuro-cranial nerves 3-12 grossly intact, motor tone/power intact, feet hypersensitive to touch, light touch intact upper and lower extremities Psych-anxious DATA: Hemoglobin 11.9 with MCV 93.7, white count 9.7; bicarbonate 38, remainder of electrolytes within normal limits, troponin 0.060-0.059. ProBNP 2470 Chest x-ray demonstrates cardiomegaly with mild blunting of the angles and increased vascular markings but my review, slight increase fluid compared to chest x-ray of 04/29. EKG also reviewed by myself demonstrating sinus rhythm with low voltage in the limb leads, no acute ST/T-wave changes, slow R-wave progression. A/P: Acute on chronic CHF Volume overload Dilated cardiomyopathy Chronic hypercarbic/hypoxic respiratory failure Hypertension COPD Diabetes mellitus, type II-diet controlled-A1C 6.1 05/01/17 Morbid obesity Depression/anxiety Diuresis initiated overnight and will be continued with IV Lasix. Weight is up 17 kg in 5 weeks consistent with describe symptoms. Monitor electrolytes in the event supplemental potassium or magnesium becomes necessary. Continue supplemental oxygen. Resume metoprolol, lisinopril, and simvastatin as previously prescribed. Anticipate echocardiogram early next week. Continue Accu-Cheks, converted to diabetic diet with fluid restriction of 1800 mL per 24 hours. Albuterol/Atrovent treatments ordered 4 times daily and when necessary. Patient has requested lorazepam "that he takes at home" per nursing report which will require further clarification as this was neither prescribed at discharge nor reported by patient when I spoke with him. Sertraline was prescribed for his chronic anxiety/depressive disorder and will be resumed. Old records reviewed in addition to emergency room note and Dr. Guerra's notes. Discussed with nursing and case management. Hospital Course Summary Disclaimer: The visit summary below is not to be considered part of the above Progress Note.
[2017-06-09] MEDS: HYDROCODONE/APAP 5mg/325mg TABLET PO PRN ×3 (05:28→18:12)
[2017-06-09] MEDS: ALBUTEROL/IPRATROPIUM 2.5mg-0.5mg/3ml NEB AEROSOL SCH ×4 (08:15→20:50)
[2017-06-09] MEDS ORDERED: METHYLPREDNISOLONE SOD SUCC 40mg/ml INJECTION IM SCH (09:00)
[2017-06-09] MEDS: FUROSEMIDE 40 MG/4 ML INJECTION IVP SCH ×3 (10:17→21:36)
[2017-06-09] MEDS: LISINOPRIL 20 MG TABLET PO SCH (10:58)
[2017-06-09] MEDS: SERTRALINE 50 MG TABLET PO SCH (10:58)
[2017-06-09] MEDS: LORazepam 1 MG TABLET PO PRN (18:12)
[2017-06-09] MEDS: SIMVASTATIN 20 MG TABLET PO SCH (21:35)
[2017-06-10] MEDS: LORazepam 1 MG TABLET PO PRN ×3 (00:32→23:02)
[2017-06-10] MEDS: HYDROCODONE/APAP 5mg/325mg TABLET PO PRN ×3 (00:32→23:02)
[2017-06-10] MEDS: FUROSEMIDE 40 MG/4 ML INJECTION IVP SCH ×4 (02:45→21:41)
[2017-06-10] MEDS: ALBUTEROL/IPRATROPIUM 2.5mg-0.5mg/3ml NEB AEROSOL PRN (03:34)
[2017-06-10] MEDS: LISINOPRIL 20 MG TABLET PO SCH (09:18)
[2017-06-10] MEDS: SERTRALINE 50 MG TABLET PO SCH (09:18)
[2017-06-10] MEDS: ALBUTEROL/IPRATROPIUM 2.5mg-0.5mg/3ml NEB AEROSOL SCH ×3 (09:50→19:00)
--- NOTE | 2017-06-10 14:43 | Progress Note ---
- Date 06/10/17 Subjective: Patient seen resting in bed this afternoon. He doesn't feel like he has diuresed much. States his abdomen still feels tight and his breathing has not improved. Appetite is good. Bowels are moving. No chest pain, nausea or vomiting. Objective Vital signs: Temperature 96.5 F L 06/10/17 09:13 Pulse Rate 78 06/10/17 11:45 Respiratory Rate 28 H 06/10/17 09:50 Blood Pressure 112/84 06/10/17 11:45 Pulse Oximetry 97 06/10/17 09:59 Height/Weight/BMI: Height 1.78 m Weight 139.8 kg Body Mass Index 44.4 - Constitutional Present: no acute distress, well nourished, well developed, obese - Routine HEENT Exam Head: Present: normocephalic, atraumatic - Routine Respiratory Exam Present: decreased breath sounds, wheezes (expiratory), diminished air movement - Routine Cardiovascular Exam Present: RRR, no murmur - Routine Abdominal Exam Present: normoactive bowel sounds, distended, firm - Routine Extremities Exam Present: edema (anasarca), normal capillary refill - Routine Skin Exam Present: dry, warm - Routine Neurological Exam Present: alert, oriented X3 - Routine Lymphatic Exam Lymphatic: Absent: adenopathy - Routine Psychiatric Exam Present: normal affect, cooperative Results - Labs CBC & Chem 7: 06/10/17 05:05 06/10/17 05:05 Assessment and Plan (1) Dilated cardiomyopathy Problem details: EF 30% on TTE done 10/2015; global hypokinesis and dilated LV; EF 55% 09/2016 Current visit: No Status: Acute (2) Acute and chronic respiratory failure with hypoxia Problem details: Chronic secondary to COPD, acute likely a combination of COPD exacerbation and volume overload/systolic heart failure exacerbation Current visit: No Status: Acute (3) COPD, severe Problem details: on 3L NC chronically at home Current visit: No Status: Chronic Assessment and Plan: Assessment Acute on chronic CHF Volume overload Dilated cardiomyopathy Chronic hypercarbic/hypoxic respiratory failure Hypertension COPD Diabetes mellitus, type II-diet controlled-A1C 6.1 05/01/17 Peripheral neuropathy Morbid obesity Depression/anxiety Plan Currently on Lasix 60 mg IV every 6 hours without significant results. Will add one time dose of metolazone 5 mg by mouth now. Down 2.6 kilograms since admission. Echocardiogram early next week. Accu-Cheks ordered. Continue diabetic diet with fluid restriction of 1800 mL per 24 hours. Continue DuoNeb treatments. Add Pulmicort for wheezing. Add Neurontin for his neuropathic pain. Start at 300 mg daily and increase as tolerated. DVT Prophylaxis: SCD's Resuscitation Status: Full Code - Physician Narrative Physician: Melissa Ramírez MD Narrative: Date: 06/10/17 Time: 1530 I have independently evaluated and examined this patient. I reviewed the chart, the patient's history, and the SENIOR RESEARCH EXECUTIVE/PA's documented findings as above. We discussed and formulated the assessment and plan as above with additions as below: Gray was seen earlier today and complained of persistent dyspnea and exertional dyspnea with occasional wheezing but no cough or sputum production. He doesn't feel he is urinating as much as he needs to. Respirations are nonlabored with decreased airflow throughout but breath sounds were clear except faint crackles at the bases at the time of my evaluation. +2-3 edema bilateral lower extremities with edema in the lower abdominal wall [id number] [id number] Telemetry reviewed by myself-sinus rhythm/sinus tachycardia Continue diuresis; may require addition of Diamox due to CO2 retention. PCO2 on ABG in April was 67. May benefit from nocturnal oximetry although I have reservations the patient could tolerate CPAP or BiPAP due to his anxiety disorder. Will discuss with him before considering study. Old records reviewed, telemetry reviewed. Hospital Course Summary Disclaimer: The visit summary below is not to be considered part of the above Progress Note. Hospital Course: 06/09/17 Diuresis initiated overnight and will be continued with IV Lasix. Weight is up 17 kg in 5 weeks consistent with describe symptoms. Monitor electrolytes in the event supplemental potassium or magnesium becomes necessary. Continue supplemental oxygen. Resume metoprolol, lisinopril, and simvastatin as previously prescribed. Anticipate echocardiogram early next week. Continue Accu-Cheks, converted to diabetic diet with fluid restriction of 1800 mL per 24 hours. Albuterol/Atrovent treatments ordered 4 times daily and when necessary. Patient has requested lorazepam "that he takes at home" per nursing report which will require further clarification as this was neither prescribed at discharge nor reported by patient when I spoke with him. Sertraline was prescribed for his chronic anxiety/depressive disorder and will be resumed. 06/10/17 Currently on Lasix 60 mg IV every 6 hours without significant results. Will add one time dose of metolazone 5 mg by mouth now. Down 2.6 kilograms since admission. Echocardiogram early next week. Accu-Cheks ordered. Continue diabetic diet with fluid restriction of 1800 mL per 24 hours. Continue DuoNeb treatments. Add Pulmicort for wheezing. Add Neurontin for his neuropathic pain. Start at 300 mg daily and increase as tolerated.
--- NOTE | 2017-06-10 15:49 | XRay Report ---
Indication: Dyspnea PROCEDURE: XR chest 1V: Encounter: Initial Comparison: April 29, 2017 Findings: The lungs are stable in appearance without new focal airspace consolidation. There is no pleural effusion or pneumothorax. The heart size, pulmonary vascularity and mediastinal contours are unchanged with enlargement of the cardiac silhouette. IMPRESSION: Stable appearance of the chest. .
[2017-06-10] MEDS ORDERED: GABAPENTIN 300 MG CAPSULE PO SCH (21:00)
[2017-06-10] MEDS: SENNA + DOCUSATE TABLET PO SCH (21:41)
[2017-06-10] MEDS: SIMVASTATIN 20 MG TABLET PO SCH (21:41)
[2017-06-11] MEDS: FUROSEMIDE 40 MG/4 ML INJECTION IVP SCH ×4 (03:56→21:00)
[2017-06-11] MEDS: BUDESONIDE INH.SOLN 0.5mg/2ml NEB AEROSOL SCH ×3 (06:16→20:42)
[2017-06-11] MEDS: LORazepam 1 MG TABLET PO PRN ×2 (08:15→20:59)
[2017-06-11] MEDS: SENNA + DOCUSATE TABLET PO SCH ×2 (08:15→20:59)
[2017-06-11] MEDS: SERTRALINE 50 MG TABLET PO SCH (08:15)
[2017-06-11] MEDS: LISINOPRIL 20 MG TABLET PO SCH (08:15)
[2017-06-11] MEDS: ALBUTEROL/IPRATROPIUM 2.5mg-0.5mg/3ml NEB AEROSOL SCH ×4 (09:10→20:42)
--- NOTE | 2017-06-11 09:51 | Progress Note ---
- Date 06/11/17 Subjective: Patient is seen resting in bed after breakfast. He is drowsy and struggles to stay awake during my visit. His son is present and reports he didn't realize his dad had a fluid restriction and he feels bad that the nurse had to confront him about it. I wrote the fluid restriction on the white board. Pt does feel he is diuresing more. Continues to have pain in the feet and legs. Son reports pt slept well and breathing isn't any worse. Appetite is fine. No CP, n /v/d. Objective Vital signs: Temperature 96.8 F 06/10/17 23:00 Pulse Rate 124 H 06/11/17 08:06 Respiratory Rate 26 H 06/11/17 08:04 Blood Pressure 145/105 H 06/11/17 08:06 Pulse Oximetry 91 06/11/17 08:04 Height/Weight/BMI: Height 1.78 m Weight 136.6 kg Body Mass Index 44.4 - Constitutional Present: no acute distress, well nourished, well developed, obese - Routine HEENT Exam Head: Present: normocephalic, atraumatic - Routine Respiratory Exam Present: CTA bilaterally. Absent: wheezes Comments: pt examined shortly after Duoneb tx - Routine Cardiovascular Exam Present: RRR, no murmur - Routine Abdominal Exam Present: soft, normoactive bowel sounds, non tender - Routine Extremities Exam Present: normal capillary refill Comments: less tightness in the calves in re: to swelling - Routine Skin Exam Present: dry, warm - Routine Neurological Exam Present: oriented X3 - Routine Lymphatic Exam Lymphatic: Absent: adenopathy - Routine Psychiatric Exam Present: cooperative Comments: drowsy Results - Labs CBC & Chem 7: 06/10/17 05:05 06/11/17 03:48 Assessment and Plan (1) Dilated cardiomyopathy Problem details: EF 30% on TTE done 10/2015; global hypokinesis and dilated LV; EF 55% 09/2016 Current visit: No Status: Acute (2) COPD, severe Problem details: on 3L NC chronically at home Current visit: No Status: Chronic (3) Acute and chronic respiratory failure with hypoxia Problem details: Chronic secondary to COPD, acute likely a combination of COPD exacerbation and volume overload/systolic heart failure exacerbation Current visit: No Status: Acute Assessment and Plan: Assessment Acute on chronic CHF Volume overload Dilated cardiomyopathy Chronic hypercarbic/hypoxic respiratory failure Hypertension COPD Diabetes mellitus, type II-diet controlled-A1C 6.1 05/01/17 Peripheral neuropathy Morbid obesity Depression/anxiety Plan Diamox 500mg po x 1 for CO2 retention. Currently on Lasix 60 mg IV every 6 hours. Had one time dose of metolazone 5 mg po yesterday with good results. Weight down almost 6 kilograms since admission. Tachycardic since last evening despite metoprolol 25 BID. Echocardiogram results pending - performed this am. Continue diabetic diet (sugars have been stable) with fluid restriction of 1800 mL per 24 hours. Continue DuoNeb and Pulmicort. Neurontin added yesterday for his neuropathic pain. Increase to TID. Consult OT/PT. Maintaining at home O2 at 3L DVT Prophylaxis: SCD's Resuscitation Status: Full Code - Physician Narrative Physician: Melissa Ramírez MD Narrative: Date: 06/11/17 Time: 1710 I have independently evaluated and examined this patient. I reviewed the chart, the patient's history, and the UNDERCOLLAR BASTER/PA's documented findings as above. We discussed and formulated the assessment and plan as above with additions as below: Gray was drowsy when evaluated earlier today and complained of persistent dyspnea; he described palpitations but associated them with dyspnea not new onset. Review of telemetry strips indicates onset of atrial flutter at some point overnight with the first strip clearly revealing flutter at 1 AM. The patient's son commented that the patient is sleeping with the head of the bed lower than he has in some time. Mumbled speech, respirations are nonlabored and breath sounds are grossly clear , no wheezing present at time of my examination; irregular cardiac rhythm with distant heart tones Edema in the abdominal wall and lower extremities is less tense than it was prior days. Patient reports known history of sleep apnea which he describes as severe and that he previously had CPAP which he tolerated but due to insurance limitations was not able to continue after the first 30 days. He is willing to try CPAP again. Nocturnal oximetry to be obtained tonight. Preliminary results of echocardiogram discussed with cardiology; rhythm change discussed with cardiology and consultation requested. Twelve-lead EKG reviewed by myself-atrial flutter with ventricular response 104. Amiodarone/heparin being initiated per cardiology. Hospital Course Summary Disclaimer: The visit summary below is not to be considered part of the above Progress Note. Hospital Course: 06/09/17 Diuresis initiated overnight and will be continued with IV Lasix. Weight is up 17 kg in 5 weeks consistent with describe symptoms. Monitor electrolytes in the event supplemental potassium or magnesium becomes necessary. Continue supplemental oxygen. Resume metoprolol, lisinopril, and simvastatin as previously prescribed. Anticipate echocardiogram early next week. Continue Accu-Cheks, converted to diabetic diet with fluid restriction of 1800 mL per 24 hours. Albuterol/Atrovent treatments ordered 4 times daily and when necessary. Patient has requested lorazepam "that he takes at home" per nursing report which will require further clarification as this was neither prescribed at discharge nor reported by patient when I spoke with him. Sertraline was prescribed for his chronic anxiety/depressive disorder and will be resumed. 06/10/17 Currently on Lasix 60 mg IV every 6 hours without significant results. Will add one time dose of metolazone 5 mg by mouth now. Down 2.6 kilograms since admission. Echocardiogram early next week. Accu-Cheks ordered. Continue diabetic diet with fluid restriction of 1800 mL per 24 hours. Continue DuoNeb treatments. Add Pulmicort for wheezing. Add Neurontin for his neuropathic pain. Start at 300 mg daily and increase as tolerated. 06/11/17 Diamox 500mg po x 1 for CO2 retention. Currently on Lasix 60 mg IV every 6 hours. Had one time dose of metolazone 5 mg po yesterday with good results. Weight down almost 6 kilograms since admission. Tachycardic since last evening despite metoprolol 25 BID--> atrial flutter with variable block. Echocardiogram with severely reduced ejection fraction of approximate 10-15% and akinetic mid apical anterior, mid apical anteroseptal, and mid apical anterolateral wall. 3/4 diastolic dysfunction. Cardiology consulted for altered rhythm and cardiomyopathy-amiodarone and heparin drips initiated. Neurontin added yesterday for his neuropathic pain. Increase to TID. Consult OT/PT. Maintaining at home O2 at 3L; known diagnosis VALARIE, overnight oximetry tonight prior to trial of CPAP. Addendum entered and electronically signed by JASSI Go 06/11/17 13:39 : Cardiology consulted for aflutter and low EF found on echo.
[2017-06-11] MEDS ORDERED: acetaZOLAMIDE 250 MG TABLET PO ONE (09:59)
[2017-06-11] MEDS: GABAPENTIN 300 MG CAPSULE PO SCH ×3 (11:18→20:59)
--- NOTE | 2017-06-11 14:05 | Cardiology Consult Note ---
History of Present Illness Consult date: 06/11/17 Requesting physician: Melissa Ramírez Consult reason: congestive heart failure, shortness of breath Chief complaint: Atrial Flutter, Cardiomyopathy History of present illness: This is a 52 y/o male known to Dr. Merchant for non-ischemic cardiomyopathy EF approx 30% by previous echo findings 2016 who presented [facility] the day of this admit with complaints of SOA and Orthopnea who admits to taking his home Lasix as prescribed but unable to take other home medications due to finances. Upon admit patient has been started on IV diuretic therapy. A 2 D-Echo has been performed today revealing that patient's EF now appro x10 to 15%. Tele today revealing that patient now in Atrial flutter with variable block. Patient admits that he is very tired and SOA with minimal exertion. Patient was recently discharged from the hospital 3 weeks ago treated for similar We have been consulted for patient's arrhythmia and CHF Review of Systems - Constitutional Constitutional: Present: weakness, weight gain - EENMT Eyes: Absent: change in vision Ears: Absent: ear pain Mouth/Throat: Absent: changes in swallowing - Cardiovascular Cardiovascular: Present: dyspnea on exertion. Absent: chest pain Vascular: Present: pedal edema - Respiratory Respiratory: Present: dyspnea - Gastrointestinal Gastrointestinal: Absent: change in bowel habits - Musculoskeletal Musculoskeletal: Absent: muscle weakness - Integumentary/Breasts Integumentary: Present: swelling - Neurological Neurological: Present: weakness - Psychiatric Psychiatric: Absent: behavioral changes - Endocrine Endocrine: Absent: palpitations - Hematologic/Lymphatic Hematologic/Lymphatic: Absent: easy bleeding PFSH Patient Stated Medical History Congestive Heart Failure Yes Hypertension Yes Asthma Yes Chronic Obstructive Pulmonary Yes Disease (COPD) Pneumonia Yes Sleep Apnea Yes Diabetes Mellitus Type 2 Yes Osteoarthritis Yes MRSA Yes Depression Yes: manic Clinic Medical History (Last Updated 06/09/17 @ 05:21 by Manny Stout MD) CHF (congestive heart failure) (Acute Medical) Coronary artery disease (Acute Medical) Sleep apnea (Acute Medical) Surgical History: Heart catheterization-2015- Patent coronaries. Right Shoulder arthroscopy. cholecystectomy Family History Updates: father of HTN and etoh - Social History Smoking status: Former smoker Substance use type: does not use Alcohol intake frequency: does not drink Housing: house Household members: children Current occupational status: disabled Current residence: Apartment/Private Home Medications Home Medications Medication Instructions Recorded Confirmed Type Acetaminophen [Tylenol] 325 - 650 mg PO Q5H PRN tab 05/03/17 06/09/17 Rx Furosemide [Lasix 20 mg Tab] 1 tab PO DAILY #30 tab 05/03/17 06/09/17 Rx Furosemide [Lasix 40 mg Tab] 1 tab PO BID #30 tab 05/03/17 06/09/17 Rx Lisinopril [Prinivil] 20 mg PO DAILY #30 tab 05/03/17 06/09/17 Rx Metoprolol Tartrate [Lopressor] 25 mg PO BIDWM #60 tab 05/03/17 06/09/17 Rx Potassium 99 mg PO BID #30 tab 05/03/17 06/09/17 Rx PredniSONE [Deltasone 20 mg] 40 mg PO WB #2 tab 05/03/17 06/09/17 Rx Sertraline [Zoloft] 50 mg PO DAILY #30 tab 05/03/17 06/09/17 Rx Simvastatin [Zocor] 20 mg PO HS #30 tab 05/03/17 06/09/17 Rx Allergies Allergy/AdvReac Type Severity Reaction Status Date / Time No Known Drug Allergies Allergy Unknown Verified 06/09/17 02:20 Exam Vital signs: Temperature 96.8 F 06/10/17 23:00 Pulse Rate 124 H 06/11/17 08:06 Respiratory Rate 18 06/11/17 12:53 Blood Pressure 145/105 H 06/11/17 08:06 Pulse Oximetry 93 06/11/17 12:53 - Constitutional no acute distress, morbidly obese, obese, cooperative - Routine HEENT Exam Head: Present: normocephalic, atraumatic Eye: Present: EOMI, conjunctivae pink ENT: Present: mucous membranes moist - Routine Neck Exam Present: trachea midline. Absent: carotid bruit Comments: Neck is thick making it difficult to assess for JVD - Routine Chest/Breast/Axilla Exam Chest wall: Absent: tenderness - Routine Respiratory Exam Present: decreased breath sounds, distant breath sounds. Absent: accessory muscle use - Routine Cardiovascular Exam Present: RRR, tachycardia. Absent: murmur - Routine Abdominal Exam Present: soft, surgical scars. Absent: firm, rigid - Routine Extremities Exam Present: edema. Absent: cyanosis - Routine Skin Exam Absent: cyanosis, jaundice - Routine Neurological Exam Present: alert, moving all extremities, hearing grossly intact - Routine Psychiatric Exam Present: normal affect Results 06/10/17 05:05 06/11/17 03:48 Comprehensive Metabolic Panel 06/11/17 Range/Units 03:48 Sodium 139 (134-144) MEQ/L Potassium 3.8 (3.6-5) MEQ/L Chloride 85 L (98-107) MEQ/L Carbon Dioxide 44 H* (22-30) MEQ/L BUN 29.0 H D (9-20) MG/DL Creatinine 1.1 (0.8-1.5) mg/dL Glucose 105 (75-110) MG/DL Calcium 8.8 (8.4-10.2) MG/DL Intake and Output 06/10/17 06/11/17 06/11/17 22:59 06:59 14:59 Intake Total 790 / 790 Output Total 850 / 850 1600 / 1600 1800 / 1800 Balance -60 / -60 -1600 / -1600 -1800 / -1800 Intake: Oral 790 / 790 Output: Urine 850 / 850 1600 / 1600 1800 / 1800 Other: Urine Appearance Clear Clear Urine Color Yellow Yellow Yellow Urine Odor Strong Strong Weight 136.6 kg Patient Weight 06/12/17 06:59 Weight 136.6 kg - EKG Interpretation EKG shows: atrial fibrillation (Atrial flutter with variable block) EKG interpretations - Dysrhythmias Supraventricular dysrhythmia: atrial flutter Assessment and Plan - Assessment and Plan (1) Acute chronic obstructive pulmonary disease with respiratory distress Current visit: Yes Status: Acute (2) Congestive heart failure Current visit: Yes Status: Acute (3) Abdominal wall cellulitis Current visit: No Status: Acute (4) Acute and chronic respiratory failure with hypoxia Problem details: Chronic secondary to COPD, acute likely a combination of COPD exacerbation and volume overload/systolic heart failure exacerbation Current visit: No Status: Acute (5) Anxiety Problem details: Severe and chronic, untreated, exacerbated by dyspnea Current visit: No Status: Acute (6) COPD exacerbation Current visit: No Status: Acute (7) Dilated cardiomyopathy Problem details: EF 30% on TTE done 10/2015; global hypokinesis and dilated LV; EF 55% 09/2016 Current visit: No Status: Acute (8) Hypertension Problem details: Off all medications for > 6 months, uncontrolled Current visit: No Status: Acute - Assessment and Plan Atrial flutter with variable block Acute on Chronic systolic heart failure Medical and Lifestyle Non-Compliance Morbid Obesity Severe COPD Acute on chronic hypoxic respiratory failure 06/11/2017 Start IV Amiodarone and IV Heparin Will consider DCCV in AM if patient does not convert to NSR Agree with aggressive IV diuresis Patient's EF has decreased and now at approx 15%. His last HC 2014 revealing no significant CAD Likely the decreased EF is due to his arrhythmia We will attempt to regain NSR in an effort to improve his cardiac output as much as possible Continue B-Debbie and MANI-I NPO at midnight in the event we need to proceed with his JANEEN and DCCV This patient may need a Life Vest - will need to assess for compliance before placing the vest Dr. Ramírez, Thank you for this consult. We will continue to follow along with you during this patient's hospitalization. Please feel free to contact us for questions or concerns. Dr. Guzman and Eliana Foy PA-C Hospital Course Summary Disclaimer: The visit summary below is not to be considered part of the above Progress Note. Hospital Course: 06/09/17 Diuresis initiated overnight and will be continued with IV Lasix. Weight is up 17 kg in 5 weeks consistent with describe symptoms. Monitor electrolytes in the event supplemental potassium or magnesium becomes necessary. Continue supplemental oxygen. Resume metoprolol, lisinopril, and simvastatin as previously prescribed. Anticipate echocardiogram early next week. Continue Accu-Cheks, converted to diabetic diet with fluid restriction of 1800 mL per 24 hours. Albuterol/Atrovent treatments ordered 4 times daily and when necessary. Patient has requested lorazepam "that he takes at home" per nursing report which will require further clarification as this was neither prescribed at discharge nor reported by patient when I spoke with him. Sertraline was prescribed for his chronic anxiety/depressive disorder and will be resumed. 06/10/17 Currently on Lasix 60 mg IV every 6 hours without significant results. Will add one time dose of metolazone 5 mg by mouth now. Down 2.6 kilograms since admission. Echocardiogram early next week. Accu-Cheks ordered. Continue diabetic diet with fluid restriction of 1800 mL per 24 hours. Continue DuoNeb treatments. Add Pulmicort for wheezing. Add Neurontin for his neuropathic pain. Start at 300 mg daily and increase as tolerated. 06/11/17 Diamox 500mg po x 1 for CO2 retention. Currently on Lasix 60 mg IV every 6 hours. Had one time dose of metolazone 5 mg po yesterday with good results. Weight down almost 6 kilograms since admission. Tachycardic since last evening despite metoprolol 25 BID. Echocardiogram results pending - performed this am. Continue diabetic diet (sugars have been stable) with fluid restriction of 1800 mL per 24 hours. Continue DuoNeb and Pulmicort. Neurontin added yesterday for his neuropathic pain. Increase to TID. Consult OT/PT. Maintaining at home O2 at 3L
[2017-06-11] MEDS ORDERED: AMIODARONE 150 MG in NS 100 ML IV ONE (14:29)
[2017-06-11] MEDS ORDERED: HEPARIN - PHARMACY CONSULT MC ONE (14:29)
[2017-06-11] MEDS ORDERED: AMIODARONE 450 MG in NS 250ml 250 ML IV SCH (14:30)
[2017-06-11] MEDS ORDERED: HEPARIN 1,000unit/ml INJECTION 10ml IV ONE (15:30)
[2017-06-11] MEDS: HEPARIN DRIP 20,000 UNIT/500 ML BAG IV SCH (16:28)
--- NOTE | 2017-06-11 16:34 | Echocardiogram ---
DATE OF PROCEDURE 06/11/2017 PROCEDURE PERFORMED Transthoracic echocardiography. 2D full Doppler exam. Color Doppler. M-mode. FINDINGS 1. Left ventricle mildly dilated. Normal LV wall thickness. Severely reduced left ventricular systolic function. LVEF about 10%-15%. Akinetic mid apical anterior wall, mid apical anteroseptum and mid apical anterolateral wall. Ungraded restrictive filling pattern. Diastolic dysfunction grade 3/4. 2. Right ventricle poorly visualized but appears to be normal in size. Normal RV systolic function. 3. Mitral valve appears normal in structure. Mild mitral regurgitation noted. 4. Aortic valve poorly visualized, moderately calcified. No significant aortic regurgitation or significant aortic stenosis noted. 5. Tricuspid valve not visualized well on this exam. 6. Pulmonic valve not visualized at all on this exam. 7. Left atrium appears normal in size. 8. Right atrium appears normal in size. SUMMARY 1. Suboptimal transthoracic echocardiographic study due to poor acoustic windows. 2. Severely reduced left ventricular systolic function. LVEF 10%-15%. Mildly dilated left ventricle. 3. Normal right ventricle. 4. Mild mitral regurgitation. MTDD
--- NOTE | 2017-06-11 17:15 | Pharmacy Consult ---
Pharmacy Consult-Heparin - Laboratory Information Heparin Plt Count 170 T/MM3 (130-400) 06/10/17 05:05 APTT 26.5 SEC (24-36) 06/11/17 14:57 - Consult Information HEPARIN CONSULT (Initial): Dx: FLUTTER Baseline PTT = 26.5 Sec. Baseline platelet count = 170 T/mm3. PTT Target Range = 50 - 75 Will give Heparin Bolus of 8,000units, start Heparin Drip at 1,600units/hr (40ml /hr). Heparin 20,000 units in D5W 500ml. We will continue to monitor and make adjustments accordingly. Thank you.
[2017-06-11] MEDS: HYDROCODONE/APAP 5mg/325mg TABLET PO PRN (20:59)
[2017-06-11] MEDS: SIMVASTATIN 20 MG TABLET PO SCH (21:25)
[2017-06-12] MEDS: AMIODARONE 900 MG in NS 500ml 500 ML IV SCH ×2 (00:14→16:58)
[2017-06-12] MEDS: FUROSEMIDE 40 MG/4 ML INJECTION IVP SCH ×3 (03:54→16:58)
[2017-06-12] MEDS: HEPARIN DRIP 20,000 UNIT/500 ML BAG IV SCH (04:57)
[2017-06-12] MEDS: BUDESONIDE INH.SOLN 0.5mg/2ml NEB AEROSOL SCH ×2 (07:01→20:06)
[2017-06-12] MEDS: ALBUTEROL/IPRATROPIUM 2.5mg-0.5mg/3ml NEB AEROSOL SCH ×4 (07:01→20:06)
[2017-06-12] MEDS ORDERED: SALINE FLUSH 10ml SYRINGE IV ONE (08:47)
[2017-06-12] MEDS ORDERED: MIDAZOLAM 2mg/2ml INJECTION IVP ONE (08:47)
[2017-06-12] MEDS ORDERED: FentaNYL 100 MCG/2 ML INJECTION IVP ONE (08:47)
--- NOTE | 2017-06-12 11:03 | Pharmacy Consult ---
Pharmacy Consult-Heparin - Laboratory Information Heparin Plt Count 170 T/MM3 (130-400) 06/10/17 05:05 APTT 85.3 SEC (24-36) H 06/12/17 07:59 - Consult Information HEPARIN CONSULT (Recurring): DAY 2 PTT = 85.3 Sec. Platelet count = 170 T/mm3. on 06/11/17 Therapeutic Range Cardiac Heparin Protocol is 50-75 Will decrease Heparin Drip to 1320 units/hr (33 ml/hr). Will recheck PTT at 1700 and also check Platlets at 1700 and adjust regimen as needed. Thank you. Tawanna Jara, PharmD
[2017-06-12] MEDS: SENNA + DOCUSATE TABLET PO SCH ×2 (11:42→21:31)
[2017-06-12] MEDS: GABAPENTIN 300 MG CAPSULE PO SCH ×3 (11:43→21:31)
[2017-06-12] MEDS: SERTRALINE 50 MG TABLET PO SCH (11:43)
[2017-06-12] MEDS: LISINOPRIL 20 MG TABLET PO SCH (11:43)
[2017-06-12] MEDS: HYDROCODONE/APAP 5mg/325mg TABLET PO PRN ×2 (11:52→21:31)
--- NOTE | 2017-06-12 14:31 | DC Cardioversion ---
DATE OF PROCEDURE June 12, 2017 REFERRING PHYSICIAN Melissa Ramírez MD INDICATION The patient is a pleasant 52-year-old gentleman who developed atrial flutter less than 48 hours ago and currently on amiodarone and heparin and was referred for DC cardioversion. INFORMED CONSENT Informed consent was obtained after explaining the procedure and the potential risks to the patient who agreed to proceed with the procedure. PROCEDURE 1. DC cardioversion of atrial flutter. TECHNIQUE Conscious sedation was performed using Versed and fentanyl. Anterior-posterior Zoll pads were applied. 360 joules of energy was delivered in synchronized manner and patient converted from atrial flutter into sinus rhythm. She tolerated the procedure well with no complications. IMPRESSION 1. Successful DC cardioversion of atrial flutter into sinus rhythm. PLAN Will keep him on antiarrhythmics to maintain sinus and will check his CHADs- VASc score for anticoagulation. MTDD
--- NOTE | 2017-06-12 16:21 | Cardiology Progress Note ---
<Eliana Foy - Last Filed: 06/12/17 16:22> Subjective Principal diagnosis: Severe Non-ischemic Dialated CM, Atrial fibrillation Interval history: Patient underwent a Successful DCCV to regain NSR We will change to oral Amiodarone Patient has high TC02 and we will change diuretic and start Diamox We have discussed with patient the need to be compliant with medications and lifestyle Patient is in agreement with this discussion He wants a Life Vest Exam Vital signs: Temperature 99.1 F 06/11/17 23:50 Pulse Rate 55 L 06/12/17 16:00 Respiratory Rate 20 06/12/17 16:00 Blood Pressure 87/63 06/12/17 16:00 Pulse Oximetry 96 06/12/17 16:00 Inpatient Medications: Generic Name Dose Route Start Last Admin Trade Name Freq PRN Reason Stop Dose Admin Acetaminophen 650 mg 06/10/17 14:38 Tylenol PO Q5H PRN Discomfort Hydrocodone Bitart/Acetaminophen 1 tab 06/09/17 03:33 06/12/17 11:52 Ogema 5/325 PO 1 tab Q6H PRN Administration Pain Albuterol/Ipratropium 3 ml 06/09/17 11:00 06/12/17 15:08 Duoneb AEROSOL 3 ml RTQID RICHARD Administration Albuterol/Ipratropium 3 ml 06/09/17 10:34 06/10/17 03:34 Duoneb AEROSOL 3 ml QID PRN Administration Shortness of air/wheezing Budesonide 0.5 mg 06/10/17 19:00 06/12/17 07:01 Pulmicort Inhalation AEROSOL 0.5 mg RTBID RICHARD Administration Furosemide 60 mg 06/09/17 09:00 06/12/17 11:41 Lasix 40 Mg/4 Ml IVP 60 mg Q6HR RICHARD Administration Gabapentin 300 mg 06/11/17 09:58 06/12/17 11:43 Neurontin PO 300 mg TID RICHARD Administration Amiodarone HCl 900 mg/ Sodium 500 mls @ 16.66 mls/hr 06/11/17 14:30 06/12/17 00:14 Chloride IV 0.5 mg/min .Q24H RICHARD 16.66 mls/hr 0.5 MG/MIN Administration Heparin Sodium (Porcine) 20,000 unit in 500 mls @ 33 mls/hr 06/11/17 15:30 09:11 Heparin Drip IV 33 mls/hr .[id number] RICHARD 33 mls/hr Protocol Titration Lisinopril 20 mg 06/09/17 10:45 06/12/17 11:43 Prinivil PO 20 mg DAILY RICHARD Administration Lorazepam 1 mg 06/09/17 17:15 06/11/17 20:59 Ativan PO 1 mg TID PRN Administration Anxiety Metoclopramide HCl 5 mg 06/09/17 03:33 Reglan IVP Q6H PRN Metoprolol Tartrate 25 mg 06/09/17 17:30 06/12/17 11:42 Lopressor PO 25 mg BIDWM RICHARD Administration Senna/Docusate Sodium 2 tab 06/10/17 21:00 06/12/17 11:42 Senna Plus Tablet PO 2 tab BID RICHARD Administration Sertraline HCl 50 mg 06/10/17 09:00 06/12/17 11:43 Zoloft PO 50 mg DAILY RICHARD Administration Simvastatin 20 mg 06/09/17 21:00 06/11/17 21:25 Zocor PO 20 mg HS RICHARD Administration Sodium Chloride 10 - 80 ml 06/09/17 02:14 06/09/17 16:04 Iv Flush IVF 10 ml PRN PRN Administration Flushing Discontinued Medications Generic Name Dose Route Start Last Admin Trade Name Freq PRN Reason Stop Dose Admin Acetazolamide 500 mg 06/11/17 09:59 06/11/17 11:18 Diamox PO 06/11/17 10:00 500 mg O ONE Administration Albuterol Sulfate 7.5 mg 06/09/17 02:35 06/09/17 02:47 Proventil Neb (0.083%) AEROSOL 06/09/17 02:36 7.5 mg O ONE Administration Albuterol/Ipratropium 3 ml 06/09/17 02:14 06/09/17 02:28 Duoneb IH 06/09/17 02:15 3 ml ONCE ONE Administration Furosemide 80 mg 06/09/17 02:34 06/09/17 02:38 Lasix 100 Mg/10 Ml IVP 06/09/17 02:35 80 mg O ONE Administration Gabapentin 300 mg 06/10/17 21:00 06/10/17 21:41 Neurontin PO 300 mg HS RICHARD Administration Heparin Sodium (Beef Lung) 8,000 unit 06/11/17 15:30 06/11/17 16:12 Heparin Bolus IV 06/11/17 15:31 8,000 unit O ONE Administration Heparin Sodium (Porcine) 1 each 06/11/17 14:29 Pharmacy Consult - Heparin MC 06/11/17 14:30 ONE TIME ONE Amiodarone HCl 450 mg/ Sodium 250 mls @ 33.33 mls/hr 06/11/17 14:30 06/12/17 00:18 Chloride IV 06/11/17 20:30 Infused .[id number] RICHARD Infusion 1 MG/MIN Amiodarone HCl 150 mg/ Sodium 103 mls @ 618 mls/hr 06/11/17 14:29 06/11/17 15 :40 Chloride IV 06/11/17 14:38 Infused O ONE Infusion Methylprednisolone Sodium Succinate 125 mg 06/09/17 02:14 06/09/17 02:34 Solu-Medrol IVP 06/09/17 02:15 125 mg O ONE Administration Methylprednisolone Sodium Succinate 40 mg 06/09/17 09:00 06/09/17 09:04 Solu-Medrol IM Not Given Q6HR RICHARD Metolazone 5 mg 06/10/17 14:56 06/10/17 15:20 Zaroxolyn PO 06/10/17 14:57 5 mg O ONE Administration Senna/Docusate Sodium 1 tab 06/09/17 03:33 Senna Plus Tablet PO BID PRN Constipation - Constitutional no acute distress - Routine HEENT Exam Head: Present: normocephalic, atraumatic Eye: Present: EOMI ENT: Present: mucous membranes moist - Routine Chest/Breast/Axilla Exam Chest wall: Absent: tenderness - Routine Respiratory Exam Present: decreased breath sounds. Absent: accessory muscle use - Routine Cardiovascular Exam Present: RRR - Routine Abdominal Exam Present: soft, normoactive bowel sounds Comments: Large abdomen but not distended - Routine Extremities Exam Present: edema. Absent: cyanosis - Routine Neurological Exam Present: alert, oriented X3 - Routine Psychiatric Exam Present: normal affect, cooperative Results 06/10/17 05:05 06/12/17 03:32 Cardiac Enzymes 06/12/17 Range/Units 03:32 AST 26 (17-59) U/L Coagulation 06/12/17 06/12/17 Range/Units 00:19 07:59 APTT 58.4 H 85.3 H (24-36) SEC Comprehensive Metabolic Panel 06/12/17 Range/Units 03:32 Sodium 138 (134-144) MEQ/L Potassium 3.4 L (3.6-5) MEQ/L Chloride 82 L (98-107) MEQ/L Carbon Dioxide 44 H* (22-30) MEQ/L BUN 32.0 H (9-20) MG/DL Creatinine 1.4 D (0.8-1.5) mg/dL Glucose 90 (75-110) MG/DL Calcium 8.7 (8.4-10.2) MG/DL AST 26 (17-59) U/L ALT 44 (1-50) U/L Alkaline Phosphatase 89 (38-126) U/L Total Protein 6.8 (6.3-8.2) g/dL Albumin 3.6 (3.5-5.0) g/dL Intake and Output 06/12/17 06/12/17 06/12/17 06:59 14:59 22:59 Intake Total 750 / 750 409.333 / 409.333 240 / 240 Balance 750 / 750 409.333 / 409.333 240 / 240 Intake: IV 750 / 750 169.333 / 169.333 Amiodarone 450 mg In NS 250ml 250 / 250 250 ml @ 1 MG/MIN 33.33 mls/hr IV .[id number] RICHARD Rx#:[id number] Heparin Drip 20,000 unit In 500 500 / 500 169.333 / 169.333 ml @ 33 mls/hr IV .[id number] RICHARD Rx#:[id number] Oral 240 / 240 240 / 240 Other: Weight 136.6 kg Patient Weight 06/13/17 06:59 Weight 136.6 kg - Imaging and Cardiology Echo: image reviewed (EF 10 to 15% dilated) Assessment and Plan - Assessment and Plan (1) Acute chronic obstructive pulmonary disease with respiratory distress Current visit: Yes Status: Acute (2) Congestive heart failure Current visit: Yes Status: Acute (3) Acute and chronic respiratory failure with hypoxia Problem details: Chronic secondary to COPD, acute likely a combination of COPD exacerbation and volume overload/systolic heart failure exacerbation Current visit: No Status: Acute (4) Anxiety Problem details: Severe and chronic, untreated, exacerbated by dyspnea Current visit: No Status: Acute (5) COPD exacerbation Current visit: No Status: Acute (6) Dilated cardiomyopathy Problem details: EF 30% on TTE done 10/2015; global hypokinesis and dilated LV; EF 55% 09/2016 Current visit: No Status: Acute (7) Hypertension Problem details: Off all medications for > 6 months, uncontrolled Current visit: No Status: Acute (8) Abdominal wall cellulitis Current visit: No Status: Acute - Assessment and Plan Atrial flutter with variable block Acute on Chronic systolic heart failure Medical and Lifestyle Non-Compliance Morbid Obesity Severe COPD Acute on chronic hypoxic respiratory failure 06/11/2017 Start IV Amiodarone and IV Heparin Will consider DCCV in AM if patient does not convert to NSR Agree with aggressive IV diuresis Patient's EF has decreased and now at approx 15%. His last HC 2014 revealing no significant CAD Likely the decreased EF is due to his arrhythmia We will attempt to regain NSR in an effort to improve his cardiac output as much as possible Continue B-Debbie and MANI-I NPO at midnight in the event we need to proceed with his JANEEN and DCCV This patient may need a Life Vest - will need to assess for compliance before placing the vest 06/12/2017 Patient had a successful DCCV into NSR today We will start him on Xarelto 20mg one tablet daily Patient now has Disability Medicare Insurance and Medicaid is pending Patient wants a Life vest - order has been put in place He understands the importance of compliance He said the only reason he was not compliant was due to financial reasons - "just did not have the money" We will change IV Lasix to oral Lasix 80mg po BID and start Diamox IV 250mg daily in an effort to improve his metabolic alkalosis Change to oral Amiodarone 200mg one tablet daily Patient will need Coreg, Lisinopril, Xarelto upon discharge patient will need to be on a 2 gram sodium restriction and a 2 Liter fluid restriction daily He will need to be followed in our clinic regularly to follow his CHF Patient's EF approx 10 to 15% Hospital Course Summary Disclaimer: The visit summary below is not to be considered part of the above Progress Note. Hospital Course: 06/09/17 Diuresis initiated overnight and will be continued with IV Lasix. Weight is up 17 kg in 5 weeks consistent with describe symptoms. Monitor electrolytes in the event supplemental potassium or magnesium becomes necessary. Continue supplemental oxygen. Resume metoprolol, lisinopril, and simvastatin as previously prescribed. Anticipate echocardiogram early next week. Continue Accu-Cheks, converted to diabetic diet with fluid restriction of 1800 mL per 24 hours. Albuterol/Atrovent treatments ordered 4 times daily and when necessary. Patient has requested lorazepam "that he takes at home" per nursing report which will require further clarification as this was neither prescribed at discharge nor reported by patient when I spoke with him. Sertraline was prescribed for his chronic anxiety/depressive disorder and will be resumed. 06/10/17 Currently on Lasix 60 mg IV every 6 hours without significant results. Will add one time dose of metolazone 5 mg by mouth now. Down 2.6 kilograms since admission. Echocardiogram early next week. Accu-Cheks ordered. Continue diabetic diet with fluid restriction of 1800 mL per 24 hours. Continue DuoNeb treatments. Add Pulmicort for wheezing. Add Neurontin for his neuropathic pain. Start at 300 mg daily and increase as tolerated. 06/11/17 Diamox 500mg po x 1 for CO2 retention. Currently on Lasix 60 mg IV every 6 hours. Had one time dose of metolazone 5 mg po yesterday with good results. Weight down almost 6 kilograms since admission. Tachycardic since last evening despite metoprolol 25 BID. Echocardiogram results pending - performed this am. Continue diabetic diet (sugars have been stable) with fluid restriction of 1800 mL per 24 hours. Continue DuoNeb and Pulmicort. Neurontin added yesterday for his neuropathic pain. Increase to TID. Consult OT/PT. Maintaining at home O2 at 3L Hospital Course Summary Disclaimer: The visit summary below is not to be considered part of the above Progress Note. Hospital Course: 06/09/17 Diuresis initiated overnight and will be continued with IV Lasix. Weight is up 17 kg in 5 weeks consistent with describe symptoms. Monitor electrolytes in the event supplemental potassium or magnesium becomes necessary. Continue supplemental oxygen. Resume metoprolol, lisinopril, and simvastatin as previously prescribed. Anticipate echocardiogram early next week. Continue Accu-Cheks, converted to diabetic diet with fluid restriction of 1800 mL per 24 hours. Albuterol/Atrovent treatments ordered 4 times daily and when necessary. Patient has requested lorazepam "that he takes at home" per nursing report which will require further clarification as this was neither prescribed at discharge nor reported by patient when I spoke with him. Sertraline was prescribed for his chronic anxiety/depressive disorder and will be resumed. 06/10/17 Currently on Lasix 60 mg IV every 6 hours without significant results. Will add one time dose of metolazone 5 mg by mouth now. Down 2.6 kilograms since admission. Echocardiogram early next week. Accu-Cheks ordered. Continue diabetic diet with fluid restriction of 1800 mL per 24 hours. Continue DuoNeb treatments. Add Pulmicort for wheezing. Add Neurontin for his neuropathic pain. Start at 300 mg daily and increase as tolerated. 06/11/17 Diamox 500mg po x 1 for CO2 retention. Currently on Lasix 60 mg IV every 6 hours. Had one time dose of metolazone 5 mg po yesterday with good results. Weight down almost 6 kilograms since admission. Tachycardic since last evening despite metoprolol 25 BID--> atrial flutter with variable block. Echocardiogram with severely reduced ejection fraction of approximate 10-15% and akinetic mid apical anterior, mid apical anteroseptal, and mid apical anterolateral wall. 3/4 diastolic dysfunction. Cardiology consulted for altered rhythm and cardiomyopathy-amiodarone and heparin drips initiated. Neurontin added yesterday for his neuropathic pain. Increase to TID. Consult OT/PT. Maintaining at home O2 at 3L; known diagnosis VALARIE, overnight oximetry tonight prior to trial of CPAP. <Lee Merchant - Last Filed: 06/13/17 09:14> Exam Vital signs: Temperature 97 F 06/13/17 07:43 Pulse Rate 64 06/13/17 07:46 Respiratory Rate 20 06/13/17 07:43 Blood Pressure 91/63 06/13/17 07:46 Pulse Oximetry 91 06/13/17 07:46 Inpatient Medications: Generic Name Dose Route Start Last Admin Trade Name Freq PRN Reason Stop Dose Admin Acetaminophen 650 mg 06/10/17 14:38 06/13/17 00:13 Tylenol PO 650 mg Q5H PRN Administration Discomfort Hydrocodone Bitart/Acetaminophen 1 - 2 tab 06/12/17 19:34 06/13/17 01:40 Ogema 5/325 PO 2 tab Q4H PRN Administration Pain Acetazolamide Sodium 250 mg 06/12/17 16:45 06/12/17 19:32 Diamox Inj IV Not Given DAILY RICHARD Albuterol/Ipratropium 3 ml 06/09/17 11:00 06/13/17 07:00 Duoneb AEROSOL 3 ml RTQID RICHARD Administration Albuterol/Ipratropium 3 ml 06/09/17 10:34 06/12/17 23:42 Duoneb AEROSOL 3 ml QID PRN Administration Shortness of air/wheezing Amiodarone HCl 200 mg 06/12/17 16:45 06/12/17 19:35 Pacerone PO 200 mg DAILY [facility] Administration Budesonide 0.5 mg 06/10/17 19:00 06/13/17 07:00 Pulmicort Inhalation AEROSOL 0.5 mg RTBID [facility] Administration Carvedilol 3.125 mg 06/12/17 17:47 06/12/17 19:34 Coreg PO 3.125 mg BIDWM [facility] Administration Furosemide 80 mg 06/12/17 17:00 06/12/17 18:16 Lasix 80 Mg Tab PO Not Given 0900,1700 [facility] Gabapentin 300 mg 06/11/17 09:58 06/12/17 21:31 Neurontin PO 300 mg TID [facility] Administration Lisinopril 2.5 mg 06/13/17 09:00 Prinivil PO DAILY [facility] Lorazepam 1 mg 06/09/17 17:15 06/11/17 20:59 Ativan PO 1 mg TID PRN Administration Anxiety Metoclopramide HCl 5 mg 06/09/17 03:33 Reglan IVP Q6H PRN Rivaroxaban 20 mg 06/13/17 17:30 Xarelto PO WS [facility] Senna/Docusate Sodium 2 tab 06/10/17 21:00 06/13/17 08:33 Senna Plus Tablet PO Not Given BID [facility] Sertraline HCl 50 mg 06/10/17 09:00 06/12/17 11:43 Zoloft PO 50 mg DAILY [facility] Administration Simvastatin 20 mg 06/09/17 21:00 06/12/17 21:30 Zocor PO 20 mg HS [facility] Administration Sodium Chloride 10 - 80 ml 06/09/17 02:14 03/31/18 16:04 Iv Flush IVF 10 ml PRN PRN Administration Flushing Discontinued Medications Generic Name Dose Route Start Last Admin Trade Name Freq PRN Reason Stop Dose Admin Hydrocodone Bitart/Acetaminophen 1 tab 06/09/17 03:33 06/12/17 11:52 Ogema 5/325 PO 1 tab Q6H PRN Administration Pain Acetazolamide 500 mg 06/11/17 09:59 06/11/17 11:18 Diamox PO 06/11/17 10:00 500 mg O ONE Administration Albuterol Sulfate 7.5 mg 06/09/17 02:35 06/09/17 02:47 Proventil Neb (0.083%) AEROSOL 06/09/17 02:36 7.5 mg O ONE Administration Albuterol/Ipratropium 3 ml 06/09/17 02:14 06/09/17 02:28 Duoneb IH 06/09/17 02:15 3 ml ONCE ONE Administration Carvedilol 6.25 mg 06/12/17 17:30 06/12/17 18:17 Coreg PO Not Given BIDWM [facility]ARD Furosemide 80 mg 06/09/17 02:34 06/09/17 02:38 Lasix 100 Mg/10 Ml IVP 06/09/17 02:35 80 mg O ONE Administration Furosemide 60 mg 06/09/17 09:00 06/12/17 16:58 Lasix 40 Mg/4 Ml IVP Not Given Q6HR [facility] Gabapentin 300 mg 06/10/17 21:00 06/10/17 21:41 Neurontin PO 300 mg HS RICHARD Administration Heparin Sodium (Beef Lung) 8,000 unit 06/11/17 15:30 06/11/17 16:12 Heparin Bolus IV 06/11/17 15:31 8,000 unit O ONE Administration Heparin Sodium (Porcine) 1 each 06/11/17 14:29 Pharmacy Consult - Heparin MC 06/11/17 14:30 ONE TIME ONE Amiodarone HCl 900 mg/ Sodium 500 mls @ 16.66 mls/hr 06/11/17 14:30 06/12/17 16:58 Chloride IV Infused .Q24H RICHARD Infusion 0.5 MG/MIN Amiodarone HCl 450 mg/ Sodium 250 mls @ 33.33 mls/hr 06/11/17 14:30 06/12/17 00:18 Chloride IV 06/11/17 20:30 Infused .[id number] [facility]ICHARD Infusion 1 MG/MIN Amiodarone HCl 150 mg/ Sodium 103 mls @ 618 mls/hr 06/11/17 14:29 06/11/17 15 :40 Chloride IV 06/11/17 14:38 Infused O ONE Infusion Heparin Sodium (Porcine) 20,000 unit in 500 mls @ 33 mls/hr 06/11/17 15:30 16:57 Heparin Drip IV Infused .[id number] RICHARD Titration Protocol Sodium Chloride 500 mls @ 250 mls/hr 06/12/17 19:45 06/12/17 21:50 Normal Saline IV 06/12/17 20:44 Infused .Q2H RICHARD Infusion Lisinopril 20 mg 06/09/17 10:45 06/12/17 11:43 Prinivil PO 20 mg DAILY [facility]ARD Administration Lisinopril 5 mg 06/12/17 17:30 06/12/17 18:17 Prinivil PO Not Given DAILY [facility] Methylprednisolone Sodium Succinate 125 mg 06/09/17 02:14 06/09/17 02:34 Solu-Medrol IVP 06/09/17 02:15 125 mg O ONE Administration Methylprednisolone Sodium Succinate 40 mg 06/09/17 09:00 06/09/17 09:04 Solu-Medrol IM Not Given Q6HR [facility] Metolazone 5 mg 06/10/17 14:56 06/10/17 15:20 Zaroxolyn PO 06/10/17 14:57 5 mg O ONE Administration Metoprolol Tartrate 25 mg 06/09/17 17:30 06/12/17 11:42 Lopressor PO 25 mg BIDWM RICHARD Administration Senna/Docusate Sodium 1 tab 06/09/17 03:33 Senna Plus Tablet PO BID PRN Constipation Results 06/12/17 17:01 06/13/17 04:31 CBC 06/12/17 Range/Units 17:01 Plt Count 197 (130-400) T/MM3 Comprehensive Metabolic Panel 06/13/17 Range/Units 04:31 Sodium 134 (134-144) MEQ/L Potassium 3.6 (3.6-5) MEQ/L Chloride 80 L (98-107) MEQ/L Carbon Dioxide 43 H* (22-30) MEQ/L BUN 45.0 H (9-20) MG/DL Creatinine 1.9 H D (0.8-1.5) mg/dL Glucose 120 H (75-110) MG/DL Calcium 8.5 (8.4-10.2) MG/DL Intake and Output 06/12/17 06/13/17 06/13/17 22:59 06:59 14:59 Intake Total 1570.667 / 1570.667 100 / 100 Output Total 300 / 300 Balance 1270.667 / 1270.667 100 / 100 Intake: IV 1330.667 / 1330.667 Amiodarone 900 mg In NS 500ml 500 / 500 500 ml @ 0.5 MG/MIN 16.66 mls/ hr IV .Q24H RICHARD Rx#:[id number] Heparin Drip 20,000 unit In 500 330.667 / 330.667 ml @ 33 mls/hr IV .[id number] RICHARD Rx#:[id number] NS 500ml 500 ml @ 250 mls/hr IV 500 / 500 .Q2H RICHARD Rx#:[id number] Oral 240 / 240 100 / 100 Output: Urine Amount (Catheter) 300 / 300 Other: Stool Color Brown Stool Consistency Loose Size of Bowel Movement Moderate # Voids 2 # Bowel Movements 1 Weight 135.3 kg Patient Weight 06/14/17 06:59 Weight 135.3 kg Assessment and Plan - Assessment and Plan (1) Dilated cardiomyopathy Problem details: EF 30% on TTE done 10/2015; global hypokinesis and dilated LV; EF 55% 09/2016 Current visit: No Status: Acute (2) Hypertension Problem details: Off all medications for > 6 months, uncontrolled Current visit: No Status: Acute (3) Acute and chronic respiratory failure with hypoxia Problem details: Chronic secondary to COPD, acute likely a combination of COPD exacerbation and volume overload/systolic heart failure exacerbation Current visit: No Status: Acute (4) Anxiety Problem details: Severe and chronic, untreated, exacerbated by dyspnea Current visit: No Status: Acute (5) Acute chronic obstructive pulmonary disease with respiratory distress Current visit: Yes Status: Acute (6) COPD exacerbation Current visit: No Status: Acute (7) Congestive heart failure Current visit: Yes Status: Acute (8) Abdominal wall cellulitis Current visit: No Status: Acute - Attestation Attestation Narrative: 06/13/17 09:13 Patient seen and evaluated by me on the date of this note. I have reviewed lab , radiology, EKG and clinical findings. I have determined this plan of care. I agree with this note. Hospital Course Summary Disclaimer: The visit summary below is not to be considered part of the above Progress Note.
[2017-06-12] MEDS ORDERED: acetaZOLAMIDE 500 MG INJECTION IV SCH (16:45)
[2017-06-12] MEDS ORDERED: FUROSEMIDE 80 MG TABLET PO SCH (17:00)
[2017-06-12] MEDS: ALBUTEROL/IPRATROPIUM 2.5mg-0.5mg/3ml NEB AEROSOL PRN ×2 (17:09→23:42)
[2017-06-12] MEDS ORDERED: LISINOPRIL 5 MG TABLET PO SCH (17:30)
[2017-06-12] MEDS ORDERED: CARVEDILOL 6.25 MG TABLET PO SCH (17:30)
--- NOTE | 2017-06-12 17:54 | Progress Note ---
- Date 06/12/17 Subjective: Mr. Antonio has been seen several times today; initially just after cardioversion when he reported that he had to go home today because his dog . He was again seen after he was more alert at which time he described persistent dyspnea and slight improvement in edema; no chest pain or palpitations, no dizziness, and no chest wall pain following cardioversion this morning. I was notified by nursing with Ceftin in the blood pressures have been low intermittently with one systolic in the 60s although it was repeated and felt to be in error as repeat value was 87/63. About 15 minutes ago I was notified that the patient got up to go to the bathroom and either fell forward or passed out striking the left side of his face. Nursing said he was groggy and slowly responsive on their arrival with systolic pressures in the 60s. He developed a moderately large hematoma over the left side, and has some facial abrasions. He is groggy (as he has been much of the day) and complains of neck pain which he localizes to the occipital area of the skull. His son is at the bedside and reports he was unaware that the patient had gotten up to go to the bathroom until he heard a crash; nursing accompanied the patient to the bathroom. Objective Vital signs: Temperature 99.1 F 06/11/17 23:50 Pulse Rate 55 L 06/12/17 16:00 Respiratory Rate 20 06/12/17 16:00 Blood Pressure 87/63 06/12/17 16:00 Pulse Oximetry 96 06/12/17 16:00 Patient has been drowsy throughout the day but responds to pain questions appropriately; earlier he would fall asleep between questions and have to be stimulated to awaken. Conjunctiva clear, conjugate gaze, EOMI; 3-4 cm hematoma above the left eye laterally, facial abrasions around the left orbital ridge, suggestion of early bruising on the left side of the face and nose Tenderness to palpation along the occipital ridge but no point tenderness over the cervical spine; patient advised to avoid neck movement Sensation intact 4 extremities Respirations nonlabored, decreased airflow throughout, breath sounds clear Regular rhythm, S1-S2 Abdomen is soft, obese, nontender, diminished bowel sounds; bowel wall edema present +2-3 edema bilateral lower extremities; patient was moving all extremities well and repositioning himself in bed independently earlier in the day prior to follow-up Height/Weight/BMI: Height 1.78 m Weight 136.6 kg Body Mass Index 44.4 Results - Labs CBC & Chem 7: 06/12/17 17:01 06/12/17 03:32 Labs: PTT 85.3 at 8 AM today Liver enzymes normal Assessment and Plan (1) Dilated cardiomyopathy Problem details: EF 30% on TTE done 10/2015; global hypokinesis and dilated LV; EF 55% 09/2016 Current visit: No Status: Acute (2) COPD, severe Problem details: on 3L NC chronically at home Current visit: No Status: Chronic (3) Acute and chronic respiratory failure with hypoxia Problem details: Chronic secondary to COPD, acute likely a combination of COPD exacerbation and volume overload/systolic heart failure exacerbation Current visit: No Status: Acute Assessment and Plan: Assessment Acute on chronic CHF Volume overload Dilated cardiomyopathy Chronic hypercarbic/hypoxic respiratory failure Hypertension COPD Diabetes mellitus, type II-diet controlled-A1C 6.1 05/01/17 Peripheral neuropathy Morbid obesity Depression/anxiety Fall versus syncope with head injury-06/12/17 Hypotension-06/13/15 Plan Patient hypotensive this afternoon corresponding to fall or syncopal event with facial injuries. For CT head and cervical spine; being placed in cervical collar at this time. Diuretics on hold, if blood pressure remains low small fluid bolus will be given. Carvedilol and lisinopril doses decreased by 50% pending stabilization of blood pressure. Discussed with Dr. Merchant after initial report of hypotension however it appeared to be artifactual at that time. Patient was on heparin earlier in the day; nursing reports heparin was off 30- 60 minutes prior to fall. Brief nasal bleeding reported immediately after fall. Successfully cardioverted to sinus rhythm earlier today-remains in sinus rhythm. Dr. Merchant has discussed Life Vest with patient in addition need for aggressive medical management due to severity of cardiac disease. Overnight oximetry demonstrated moderate interference; oxygen saturation was < 89% for 10 minutes (patient was on 3 L oxygen by nasal cannula until 0230, 2 L from 7797-4297, then CPAP from 5989-1114. Lowest oxygen saturation reported was 79% and the longest desaturation was 57 seconds. [place] pattern evident on tracing. Patient did not tolerate standard face mask with CPAP last night-nasal mask to be tried tonight. Patient critically [id number] for complications of unstable blood pressure/ head injury. 35 minutes spent at the bedside today and additional time in discussions with staff/consultants outside of room. - Physician Narrative Narrative: Date: 06/12/17 Time: 1747 Hospital Course Summary Disclaimer: The visit summary below is not to be considered part of the above Progress Note. Hospital Course: 06/09/17 Diuresis initiated overnight and will be continued with IV Lasix. Weight is up 17 kg in 5 weeks consistent with describe symptoms. Monitor electrolytes in the event supplemental potassium or magnesium becomes necessary. Continue supplemental oxygen. Resume metoprolol, lisinopril, and simvastatin as previously prescribed. Anticipate echocardiogram early next week. Continue Accu-Cheks, converted to diabetic diet with fluid restriction of 1800 mL per 24 hours. Albuterol/Atrovent treatments ordered 4 times daily and when necessary. Patient has requested lorazepam "that he takes at home" per nursing report which will require further clarification as this was neither prescribed at discharge nor reported by patient when I spoke with him. Sertraline was prescribed for his chronic anxiety/depressive disorder and will be resumed. 06/10/17 Currently on Lasix 60 mg IV every 6 hours without significant results. Will add one time dose of metolazone 5 mg by mouth now. Down 2.6 kilograms since admission. Echocardiogram early next week. Accu-Cheks ordered. Continue diabetic diet with fluid restriction of 1800 mL per 24 hours. Continue DuoNeb treatments. Add Pulmicort for wheezing. Add Neurontin for his neuropathic pain. Start at 300 mg daily and increase as tolerated. 06/11/17 Diamox 500mg po x 1 for CO2 retention. Currently on Lasix 60 mg IV every 6 hours. Had one time dose of metolazone 5 mg po yesterday with good results. Weight down almost 6 kilograms since admission. Tachycardic since last evening despite metoprolol 25 BID--> atrial flutter with variable block. Echocardiogram with severely reduced ejection fraction of approximate 10-15% and akinetic mid apical anterior, mid apical anteroseptal, and mid apical anterolateral wall. 3/4 diastolic dysfunction. Cardiology consulted for altered rhythm and cardiomyopathy-amiodarone and heparin drips initiated. Neurontin added yesterday for his neuropathic pain. Increase to TID. Consult OT/PT. Maintaining at home O2 at 3L; known diagnosis VALARIE, overnight oximetry tonight prior to trial of CPAP. 06/12/17 Patient hypotensive this afternoon corresponding to fall or syncopal event with facial injuries. For CT head and cervical spine; being placed in cervical collar at this time. Diuretics on hold, if blood pressure remains low small fluid bolus will be given. Carvedilol and lisinopril doses decreased by 50% pending stabilization of blood pressure. Discussed with Dr. Merchant after initial report of hypotension however it appeared to be artifactual at that time. Patient was on heparin earlier in the day; nursing reports heparin was off 30- 60 minutes prior to fall. Brief nasal bleeding reported immediately after fall. Successfully cardioverted to sinus rhythm earlier today-remains in sinus rhythm. Dr. Merchant has discussed Life Vest with patient in addition need for aggressive medical management due to severity of cardiac disease. Patient critically [id number] for complications of unstable blood pressure/ head injury. Overnight oximetry demonstrated moderate interference; oxygen saturation was < 89% for 10 minutes (patient was on 3 L oxygen by nasal cannula until 0230, 2 L from 7788-1322, then CPAP from [id number]. Lowest oxygen saturation reported was 79% and the longest desaturation was 57 seconds. [place] pattern evident on tracing. Patient did not tolerate standard face mask with CPAP last night-nasal mask to be tried tonight.
[2017-06-12] MEDS: CARVEDILOL 3.125 MG TABLET PO SCH (19:34)
[2017-06-12] MEDS: AMIODARONE 200 MG TABLET PO SCH (19:35)
[2017-06-12] MEDS: SIMVASTATIN 20 MG TABLET PO SCH (21:30)
[2017-06-13] MEDS: ACETAMINOPHEN 325 MG TABLET PO PRN (00:13)
[2017-06-13] MEDS: HYDROCODONE/APAP 5mg/325mg TABLET PO PRN ×3 (01:40→21:10)
[2017-06-13] MEDS: ALBUTEROL/IPRATROPIUM 2.5mg-0.5mg/3ml NEB AEROSOL SCH ×4 (07:00→19:45)
[2017-06-13] MEDS: BUDESONIDE INH.SOLN 0.5mg/2ml NEB AEROSOL SCH ×2 (07:00→19:45)
--- NOTE | 2017-06-13 08:06 | CT Scan Report ---
Indication: fall/facial trauma-on heparin one hour earlier PROCEDURE: CT head/brain wo con: Encounter: Initial Comparison: July 03, 2013 Technique: Axial CT images through the head were performed without contrast. Iterative Reconstruction dose reducing technique was utilized. FINDINGS: The ventricles are of normal size, shape, and configuration for the patient's age. There is no evidence of acute intracranial hemorrhage, midline displacement, or mass effect. There are scattered areas of low attenuation in the white matter which most likely represent changes of chronic microvascular ischemia. The CT attenuation of the brain parenchyma is otherwise normal within the cerebellum, brain stem, and cerebral hemispheres. The tympanic cavities and mastoid air cells are free of appreciable disease. There are no definite fractures of the skull base, calvarium, or visualized portion of the midface. Left preseptal soft tissue swelling and supraorbital hematoma. Small amount of fluid in the left maxillary sinus. IMPRESSION: No CT evidence of acute traumatic intracranial injury. There is a preliminary report by [facility]. .
--- NOTE | 2017-06-13 08:07 | CT Scan Report ---
Indication: fall, upper neck pain PROCEDURE: CT cervical spine wo con: Encounter: Initial Comparison: None Technique: Axial CT images through the cervical spine were performed without contrast. Coronal and sagittal reformatted images were also obtained. Automated Exposure Control and Iterative Reconstruction dose reducing techniques were utilized. FINDINGS: The alignment of the cervical spine shows levoscoliosis, probably positional. Multilevel degenerative changes are present. There is no evidence of acute fracture or subluxation of the cervical spine. The atlantoaxial articulation, dens, and upper cervical spine demonstrate no subluxation. Fluid in the left maxillary sinus. IMPRESSION: No acute traumatic abnormality of the cervical spine. There is a preliminary report by [facility]. .
[2017-06-13] MEDS: SENNA + DOCUSATE TABLET PO SCH ×2 (08:33→21:38)
[2017-06-13] MEDS: AMIODARONE 200 MG TABLET PO SCH (09:39)
[2017-06-13] MEDS: CARVEDILOL 3.125 MG TABLET PO SCH ×2 (09:39→18:34)
[2017-06-13] MEDS: LISINOPRIL 2.5 MG TABLET PO SCH (09:39)
[2017-06-13] MEDS: GABAPENTIN 300 MG CAPSULE PO SCH ×3 (09:39→21:11)
[2017-06-13] MEDS: SERTRALINE 50 MG TABLET PO SCH (09:40)
--- NOTE | 2017-06-13 10:10 | Cardiology Progress Note ---
<Caryl Salas M - Last Filed: 06/14/17 11:51> Subjective Principal diagnosis: Severe Non-ischemic Dialated CM, Atrial fibrillation Interval history: Gray is seen in follow up for NI dilated CM, A Fib, his son is at the bedside. He is on Bi-Pap with 3L O2, in no distress. He had an episode of hypotension overnight and fell in the bathroom. He has a hematoma surrounding left eye. His Scr is elevated at 1.9 today, remains on Diamox for elevated TC02. He is currently wearing Exam Vital signs: Temperature 97 F 06/13/17 07:43 Pulse Rate 64 06/13/17 07:46 Respiratory Rate 20 06/13/17 07:43 Blood Pressure 91/63 06/13/17 07:46 Pulse Oximetry 91 06/13/17 07:46 Inpatient Medications: Generic Name Dose Route Start Last Admin Trade Name Freq PRN Reason Stop Dose Admin Acetaminophen 650 mg 06/10/17 14:38 06/13/17 00:13 Tylenol PO 650 mg Q5H PRN Administration Discomfort Hydrocodone Bitart/Acetaminophen 1 - 2 tab 06/12/17 19:34 06/13/17 01:40 Jackson 5/325 PO 2 tab Q4H PRN Administration Pain Acetazolamide Sodium 250 mg 06/12/17 16:45 06/12/17 19:32 Diamox Inj IV Not Given DAILY RICHARD Albuterol/Ipratropium 3 ml 06/09/17 11:00 06/13/17 07:00 Duoneb AEROSOL 3 ml RTQID RICHARD Administration Albuterol/Ipratropium 3 ml 06/09/17 10:34 06/12/17 23:42 Duoneb AEROSOL 3 ml QID PRN Administration Shortness of air/wheezing Amiodarone HCl 200 mg 06/12/17 16:45 06/13/17 09:39 Pacerone PO 200 mg DAILY RICHARD Administration Budesonide 0.5 mg 06/10/17 19:00 06/13/17 07:00 Pulmicort Inhalation AEROSOL 0.5 mg RTBID RICHARD Administration Carvedilol 3.125 mg 06/12/17 17:47 06/13/17 09:39 Coreg PO 3.125 mg BIDWM RICHARD Administration Furosemide 80 mg 06/12/17 17:00 06/12/17 18:16 Lasix 80 Mg Tab PO Not Given 0900,1700 RICHARD Gabapentin 300 mg 06/11/17 09:58 06/13/17 09:39 Neurontin PO 300 mg TID RICHARD Administration Lisinopril 2.5 mg 06/13/17 09:00 06/13/17 09:39 Prinivil PO 2.5 mg DAILY RICHARD Administration Lorazepam 1 mg 06/09/17 17:15 06/11/17 20:59 Ativan PO 1 mg TID PRN Administration Anxiety Metoclopramide HCl 5 mg 06/09/17 03:33 Reglan IVP Q6H PRN Rivaroxaban 20 mg 06/13/17 17:30 Xarelto PO WS RICHARD Senna/Docusate Sodium 2 tab 06/10/17 21:00 06/13/17 08:33 Senna Plus Tablet PO Not Given BID RICHARD Sertraline HCl 50 mg 06/10/17 09:00 06/13/17 09:40 Zoloft PO 50 mg DAILY RICHARD Administration Simvastatin 20 mg 06/09/17 21:00 06/12/17 21:30 Zocor PO 20 mg HS RICHARD Administration Sodium Chloride 10 - 80 ml 06/09/17 02:14 06/09/17 16:04 Iv Flush IVF 10 ml PRN PRN Administration Flushing Discontinued Medications Generic Name Dose Route Start Last Admin Trade Name Freq PRN Reason Stop Dose Admin Hydrocodone Bitart/Acetaminophen 1 tab 06/09/17 03:33 06/12/17 11:52 Jackson 5/325 PO 1 tab Q6H PRN Administration Pain Acetazolamide 500 mg 06/11/17 09:59 06/11/17 11:18 Diamox PO 06/11/17 10:00 500 mg O ONE Administration Albuterol Sulfate 7.5 mg 06/09/17 02:35 06/09/17 02:47 Proventil Neb (0.083%) AEROSOL 06/09/17 02:36 7.5 mg O ONE Administration Albuterol/Ipratropium 3 ml 06/09/17 02:14 06/09/17 02:28 Duoneb IH 06/09/17 02:15 3 ml ONCE ONE Administration Carvedilol 6.25 mg 06/12/17 17:30 06/12/17 18:17 Coreg PO Not Given BIDWM RICHARD Furosemide 80 mg 06/09/17 02:34 06/09/17 02:38 Lasix 100 Mg/10 Ml IVP 06/09/17 02:35 80 mg O ONE Administration Furosemide 60 mg 06/09/17 09:00 06/12/17 16:58 Lasix 40 Mg/4 Ml IVP Not Given Q6HR RICHARD Gabapentin 300 mg 06/10/17 21:00 06/10/17 21:41 Neurontin PO 300 mg HS RICHARD Administration Heparin Sodium (Beef Lung) 8,000 unit 06/11/17 15:30 06/11/17 16:12 Heparin Bolus IV 06/11/17 15:31 8,000 unit O ONE Administration Heparin Sodium (Porcine) 1 each 06/11/17 14:29 Pharmacy Consult - Heparin 06/11/17 14:30 ONE TIME ONE Amiodarone HCl 900 mg/ Sodium 500 mls @ 16.66 mls/hr 06/11/17 14:30 06/12/17 16:58 Chloride IV Infused .Q24H RICHARD Infusion 0.5 MG/MIN Amiodarone HCl 450 mg/ Sodium 250 mls @ 33.33 mls/hr 06/11/17 14:30 06/12/17 00:18 Chloride IV 06/11/17 20:30 Infused .[id number] RICHARD Infusion 1 MG/MIN Amiodarone HCl 150 mg/ Sodium 103 mls @ 618 mls/hr 06/11/17 14:29 06/11/17 15 :40 Chloride IV 06/11/17 14:38 Infused O ONE Infusion Heparin Sodium (Porcine) 20,000 unit in 500 mls @ 33 mls/hr 06/11/17 15:30 16:57 Heparin Drip IV Infused .[id number] RICHARD Titration Protocol Sodium Chloride 500 mls @ 250 mls/hr 06/12/17 19:45 06/12/17 21:50 Normal Saline IV 06/12/17 20:44 Infused .Q2H RICHARD Infusion Lisinopril 20 mg 06/09/17 10:45 06/12/17 11:43 Prinivil PO 20 mg DAILY RICHARD Administration Lisinopril 5 mg 06/12/17 17:30 06/12/17 18:17 Prinivil PO Not Given DAILY RICHARD Methylprednisolone Sodium Succinate 125 mg 06/09/17 02:14 06/09/17 02:34 Solu-Medrol IVP 06/09/17 02:15 125 mg O ONE Administration Methylprednisolone Sodium Succinate 40 mg 06/09/17 09:00 06/09/17 09:04 Solu-Medrol IM Not Given Q6HR RICHARD Metolazone 5 mg 06/10/17 14:56 06/10/17 15:20 Zaroxolyn PO 06/10/17 14:57 5 mg O ONE Administration Metoprolol Tartrate 25 mg 06/09/17 17:30 06/12/17 11:42 Lopressor PO 25 mg BIDWM RICHARD Administration Senna/Docusate Sodium 1 tab 06/09/17 03:33 Senna Plus Tablet PO BID PRN Constipation - Constitutional no acute distress, morbidly obese, cooperative - Routine HEENT Exam Head: Present: normocephalic - Routine Neck Exam Absent: JVD, carotid bruit - Routine Chest/Breast/Axilla Exam Chest wall: Absent: tenderness - Routine Respiratory Exam Present: decreased breath sounds. Absent: dyspnea - Routine Cardiovascular Exam Present: RRR - Routine Abdominal Exam Present: soft, normoactive bowel sounds - Routine Extremities Exam Present: edema - Routine Skin Exam Present: intact, dry, warm, ecchymosis (left eye) - Routine Neurological Exam Present: alert, oriented X3 - Routine Psychiatric Exam Present: normal affect Results 06/12/17 17:01 06/13/17 04:31 CBC 06/12/17 Range/Units 17:01 Plt Count 197 (130-400) T/MM3 Comprehensive Metabolic Panel 06/13/17 Range/Units 04:31 Sodium 134 (134-144) MEQ/L Potassium 3.6 (3.6-5) MEQ/L Chloride 80 L (98-107) MEQ/L Carbon Dioxide 43 H* (22-30) MEQ/L BUN 45.0 H (9-20) MG/DL Creatinine 1.9 H D (0.8-1.5) mg/dL Glucose 120 H (75-110) MG/DL Calcium 8.5 (8.4-10.2) MG/DL Intake and Output 06/12/17 06/13/17 06/13/17 22:59 06:59 14:59 Intake Total 1570.667 / 1570.667 100 / 100 350 / 350 Output Total 300 / 300 Balance 1270.667 / 1270.667 100 / 100 350 / 350 Intake: IV 1330.667 / 1330.667 Amiodarone 900 mg In NS 500ml 500 / 500 500 ml @ 0.5 MG/MIN 16.66 mls/ hr IV .Q24H RICHARD Rx#:[id number] Heparin Drip 20,000 unit In 500 330.667 / 330.667 ml @ 33 mls/hr IV .[id number] RICHARD Rx#:[id number] NS 500ml 500 ml @ 250 mls/hr IV 500 / 500 .Q2H RICHARD Rx#:[id number] Oral 240 / 240 100 / 100 350 / 350 Output: Urine Amount (Catheter) 300 / 300 Other: Stool Color Brown Stool Consistency Loose Size of Bowel Movement Moderate # Voids 2 # Bowel Movements 1 Weight 298 lb 4.567 oz Patient Weight 06/14/17 06:59 Weight 298 lb 4.567 oz - Imaging and Cardiology Echo: report reviewed Imaging & Cardiology Narrative: Date of Exam: 06/12/17 Ordering Provider: Melissa Ramírez MD Type of Exam(s): CT head/brain wo con Reason for Exam(s): fall/facial trauma-on heparin one hour earlier Indication: fall/facial trauma-on heparin one hour earlier PROCEDURE: CT head/brain wo con: Encounter: Initial Comparison: July 03, 2013 Technique: Axial CT images through the head were performed without contrast. Iterative Reconstruction dose reducing technique was utilized. FINDINGS: The ventricles are of normal size, shape, and configuration for the patient's age. There is no evidence of acute intracranial hemorrhage, midline displacement, or mass effect. There are scattered areas of low attenuation in the white matter which most likely represent changes of chronic microvascular ischemia. The CT attenuation of the brain parenchyma is otherwise normal within the cerebellum, brain stem, and cerebral hemispheres. The tympanic cavities and mastoid air cells are free of appreciable disease. There are no definite fractures of the skull base, calvarium, or visualized portion of the midface. Left preseptal soft tissue swelling and supraorbital hematoma. Small amount of fluid in the left maxillary sinus. IMPRESSION: No CT evidence of acute traumatic intracranial injury. There is a preliminary report by virtual radiologic. 06/13/17 13:59 06/13/17 13:59 Date of Exam: 06/12/17 Ordering Provider: Melissa Ramírez MD Type of Exam(s): CT cervical spine wo con Reason for Exam(s): fall, upper neck pain Indication: fall, upper neck pain PROCEDURE: CT cervical spine wo con: Encounter: Initial Comparison: None Technique: Axial CT images through the cervical spine were performed without contrast. Coronal and sagittal reformatted images were also obtained. Automated Exposure Control and Iterative Reconstruction dose reducing techniques were utilized. FINDINGS: The alignment of the cervical spine shows levoscoliosis, probably positional. Multilevel degenerative changes are present. There is no evidence of acute fracture or subluxation of the cervical spine. The atlantoaxial articulation, dens, and upper cervical spine demonstrate no subluxation. Fluid in the left maxillary sinus. IMPRESSION: No acute traumatic abnormality of the cervical spine. There is a preliminary report by virtual radiologic. 06/13/17 14:00 DATE OF PROCEDURE June 12, 2017 REFERRING PHYSICIAN Melissa Ramírez MD INDICATION The patient is a pleasant 52-year-old gentleman who developed atrial flutter less than 48 hours ago and currently on amiodarone and heparin and was referred for DC cardioversion. INFORMED CONSENT Informed consent was obtained after explaining the procedure and the potential risks to the patient who agreed to proceed with the procedure. PROCEDURE 1. DC cardioversion of atrial flutter. TECHNIQUE Conscious sedation was performed using Versed and fentanyl. Anterior-posterior Zoll pads were applied. 360 joules of energy was delivered in synchronized manner and patient converted from atrial flutter into sinus rhythm. She tolerated the procedure well with no complications. IMPRESSION 1. Successful DC cardioversion of atrial flutter into sinus rhythm. PLAN Will keep him on antiarrhythmics to maintain sinus and will check his CHADs- VASc score for anticoagulation. Assessment and Plan - Assessment and Plan (1) Dilated cardiomyopathy Problem details: EF 30% on TTE done 10/2015; global hypokinesis and dilated LV; EF 55% 09/2016 Current visit: No Status: Acute (2) Hypertension Problem details: Off all medications for > 6 months, uncontrolled Current visit: No Status: Acute (3) Acute and chronic respiratory failure with hypoxia Problem details: Chronic secondary to COPD, acute likely a combination of COPD exacerbation and volume overload/systolic heart failure exacerbation Current visit: No Status: Acute (4) Anxiety Problem details: Severe and chronic, untreated, exacerbated by dyspnea Current visit: No Status: Acute (5) Acute chronic obstructive pulmonary disease with respiratory distress Current visit: Yes Status: Acute (6) COPD exacerbation Current visit: No Status: Acute (7) Congestive heart failure Current visit: Yes Status: Acute (8) Abdominal wall cellulitis Current visit: No Status: Acute - Assessment and Plan Atrial flutter with variable block Acute on Chronic systolic heart failure Medical and Lifestyle Non-Compliance Morbid Obesity Severe COPD Acute on chronic hypoxic respiratory failure 06/11/2017 Start IV Amiodarone and IV Heparin Will consider DCCV in AM if patient does not convert to NSR Agree with aggressive IV diuresis Patient's EF has decreased and now at approx 15%. His last HC 2014 revealing no significant CAD Likely the decreased EF is due to his arrhythmia We will attempt to regain NSR in an effort to improve his cardiac output as much as possible Continue B-Debbie and MANI-I NPO at midnight in the event we need to proceed with his JANEEN and DCCV This patient may need a Life Vest - will need to assess for compliance before placing the vest 06/12/2017 Patient had a successful DCCV into NSR today We will start him on Xarelto 20mg one tablet daily Patient now has Disability Medicare Insurance and Medicaid is pending Patient wants a Life vest - order has been put in place He understands the importance of compliance He said the only reason he was not compliant was due to financial reasons - "just did not have the money" We will change IV Lasix to oral Lasix 80mg po BID and start Diamox IV 250mg daily in an effort to improve his metabolic alkalosis Change to oral Amiodarone 200mg one tablet daily Patient will need Coreg, Lisinopril, Xarelto upon discharge patient will need to be on a 2 gram sodium restriction and a 2 Liter fluid restriction daily He will need to be followed in our clinic regularly to follow his CHF Patient's EF approx 10 to 15% 06/13/17 Remains hypotensive. - Agree with decreased doses of Coreg and Lisinopril if tolerates - Hold diuretic today, change to daily tomorrow. Hospital Course Summary Disclaimer: The visit summary below is not to be considered part of the above Progress Note. Hospital Course: 06/09/17 Diuresis initiated overnight and will be continued with IV Lasix. Weight is up 17 kg in 5 weeks consistent with describe symptoms. Monitor electrolytes in the event supplemental potassium or magnesium becomes necessary. Continue supplemental oxygen. Resume metoprolol, lisinopril, and simvastatin as previously prescribed. Anticipate echocardiogram early next week. Continue Accu-Cheks, converted to diabetic diet with fluid restriction of 1800 mL per 24 hours. Albuterol/Atrovent treatments ordered 4 times daily and when necessary. Patient has requested lorazepam "that he takes at home" per nursing report which will require further clarification as this was neither prescribed at discharge nor reported by patient when I spoke with him. Sertraline was prescribed for his chronic anxiety/depressive disorder and will be resumed. 06/10/17 Currently on Lasix 60 mg IV every 6 hours without significant results. Will add one time dose of metolazone 5 mg by mouth now. Down 2.6 kilograms since admission. Echocardiogram early next week. Accu-Cheks ordered. Continue diabetic diet with fluid restriction of 1800 mL per 24 hours. Continue DuoNeb treatments. Add Pulmicort for wheezing. Add Neurontin for his neuropathic pain. Start at 300 mg daily and increase as tolerated. 06/11/17 Diamox 500mg po x 1 for CO2 retention. Currently on Lasix 60 mg IV every 6 hours. Had one time dose of metolazone 5 mg po yesterday with good results. Weight down almost 6 kilograms since admission. Tachycardic since last evening despite metoprolol 25 BID--> atrial flutter with variable block. Echocardiogram with severely reduced ejection fraction of approximate 10-15% and akinetic mid apical anterior, mid apical anteroseptal, and mid apical anterolateral wall. 3/4 diastolic dysfunction. Cardiology consulted for altered rhythm and cardiomyopathy-amiodarone and heparin drips initiated. Neurontin added yesterday for his neuropathic pain. Increase to TID. Consult OT/PT. Maintaining at home O2 at 3L; known diagnosis VALARIE, overnight oximetry tonight prior to trial of CPAP. 06/12/17 Patient hypotensive this afternoon corresponding to fall or syncopal event with facial injuries. For CT head and cervical spine; being placed in cervical collar at this time. Diuretics on hold, if blood pressure remains low small fluid bolus will be given. Carvedilol and lisinopril doses decreased by 50% pending stabilization of blood pressure. Discussed with Dr. Merchant after initial report of hypotension however it appeared to be artifactual at that time. Patient was on heparin earlier in the day; nursing reports heparin was off 30- 60 minutes prior to fall. Brief nasal bleeding reported immediately after fall. Successfully cardioverted to sinus rhythm earlier today-remains in sinus rhythm. Dr. Merchant has discussed Life Vest with patient in addition need for aggressive medical management due to severity of cardiac disease. Patient critically [id number] for complications of unstable blood pressure/ head injury. Overnight oximetry demonstrated moderate interference; oxygen saturation was < 89% for 10 minutes (patient was on 3 L oxygen by nasal cannula until 0230, 2 L from [id number], then CPAP from [id number]. Lowest oxygen saturation reported was 79% and the longest desaturation was 57 seconds. [place] pattern evident on tracing. Patient did not tolerate standard face mask with CPAP last night-nasal mask to be tried tonight. <Lee Merchant - Last Filed: 06/19/17 12:28> Exam Vital signs: Temperature 98.2 F 06/19/17 07:54 Pulse Rate 81 06/19/17 08:00 Respiratory Rate 18 06/19/17 11:05 Blood Pressure 153/97 H 06/19/17 07:54 Pulse Oximetry 93 06/19/17 11:05 Inpatient Medications: Generic Name Dose Route Start Last Admin Trade Name Freq PRN Reason Stop Dose Admin Acetaminophen 650 mg 06/10/17 14:38 06/15/17 20:18 Tylenol PO 650 mg Q5H PRN Administration Discomfort Hydrocodone Bitart/Acetaminophen 1 - 2 tab 06/12/17 19:34 06/19/17 08:56 Jackson 5/325 PO 1 tab Q4H PRN Administration Pain Acetazolamide 250 mg 06/14/17 10:16 06/19/17 08:55 Diamox PO 250 mg BID RICHARD Administration Albuterol/Ipratropium 3 ml 06/09/17 11:00 06/19/17 11:05 Duoneb AEROSOL 3 ml RTQID RICHARD Administration Albuterol/Ipratropium 3 ml 06/09/17 10:34 06/17/17 04:59 Duoneb AEROSOL 3 ml QID PRN Administration Shortness of air/wheezing Alprazolam 0.5 mg 06/15/17 10:52 06/19/17 10:00 Xanax PO 0.5 mg TID PRN Administration Anxiety Amiodarone HCl 200 mg 06/12/17 16:45 06/19/17 08:55 Pacerone PO 200 mg DAILY RICHARD Administration Artificial Tears 1 drop 06/14/17 14:17 Refresh Classic EACH EYE QID PRN Carvedilol 3.125 mg 06/12/17 17:47 06/19/17 08:55 Coreg PO 3.125 mg BIDWM RICHARD Administration Furosemide 40 mg 06/19/17 09:00 06/19/17 08:55 Lasix 40 Mg Tab PO 40 mg DAILY RICHARD Administration Gabapentin 300 mg 06/11/17 09:58 06/19/17 08:55 Neurontin PO 300 mg TID RICHARD Administration Lisinopril 2.5 mg 06/13/17 09:00 06/19/17 08:55 Prinivil PO 2.5 mg DAILY RICHARD Administration Metoclopramide HCl 5 mg 06/09/17 03:33 Reglan IVP Q6H PRN Rivaroxaban 20 mg 06/13/17 17:30 06/18/17 18:10 Xarelto PO 20 mg WS RICHARD Administration Senna/Docusate Sodium 2 tab 06/10/17 21:00 06/19/17 08:56 Senna Plus Tablet PO 2 tab BID RICHARD Administration Sertraline HCl 50 mg 06/10/17 09:00 06/19/17 08:56 Zoloft PO 50 mg DAILY RICHARD Administration Simvastatin 20 mg 06/09/17 21:00 06/18/17 20:55 Zocor PO 20 mg HS RICHARD Administration Sodium Chloride 10 - 80 ml 06/09/17 02:14 06/16/17 20:49 Iv Flush IVF 10 ml PRN PRN Administration Flushing Discontinued Medications Generic Name Dose Route Start Last Admin Trade Name Freq PRN Reason Stop Dose Admin Hydrocodone Bitart/Acetaminophen 1 tab 06/09/17 03:33 06/12/17 11:52 Jackson 5/325 PO 1 tab Q6H PRN Administration Pain Acetazolamide 500 mg 06/11/17 09:59 06/11/17 11:18 Diamox PO 06/11/17 10:00 500 mg O ONE Administration Acetazolamide Sodium 250 mg 06/12/17 16:45 06/12/17 19:32 Diamox Inj IV Not Given DAILY RICHARD Albuterol Sulfate 7.5 mg 06/09/17 02:35 06/09/17 02:47 Proventil Neb (0.083%) AEROSOL 06/09/17 02:36 7.5 mg O ONE Administration Albuterol/Ipratropium 3 ml 06/09/17 02:14 06/09/17 02:28 Duoneb IH 06/09/17 02:15 3 ml ONCE ONE Administration Budesonide 0.5 mg 06/10/17 19:00 06/18/17 20:20 Pulmicort Inhalation AEROSOL 0.5 mg RTBID RICHARD Administration Carvedilol 6.25 mg 06/12/17 17:30 06/12/17 18:17 Coreg PO Not Given BIDWM RICHARD Furosemide 80 mg 06/09/17 02:34 06/09/17 02:38 Lasix 100 Mg/10 Ml IVP 06/09/17 02:35 80 mg O ONE Administration Furosemide 60 mg 06/09/17 09:00 06/12/17 16:58 Lasix 40 Mg/4 Ml IVP Not Given Q6HR RICHARD Furosemide 80 mg 06/12/17 17:00 06/12/17 18:16 Lasix 80 Mg Tab PO Not Given 0900,1700 RICHARD Furosemide 80 mg 06/14/17 09:00 Lasix 80 Mg Tab PO DAILY RICHARD Furosemide 40 mg 06/18/17 13:15 06/18/17 18:10 Lasix 40 Mg Tab PO 40 mg 0900,1700 RICHARD Administration Gabapentin 300 mg 06/10/17 21:00 06/10/17 21:41 Neurontin PO 300 mg HS RICHARD Administration Heparin Sodium (Beef Lung) 8,000 unit 06/11/17 15:30 06/11/17 16:12 Heparin Bolus IV 06/11/17 15:31 8,000 unit O ONE Administration Heparin Sodium (Porcine) 1 each 06/11/17 14:29 Pharmacy Consult - Heparin MC 06/11/17 14:30 ONE TIME ONE Amiodarone HCl 900 mg/ Sodium 500 mls @ 16.66 mls/hr 06/11/17 14:30 06/12/17 16:58 Chloride IV Infused .Q24H RICHARD Infusion 0.5 MG/MIN Amiodarone HCl 450 mg/ Sodium 250 mls @ 33.33 mls/hr 06/11/17 14:30 06/12/17 00:18 Chloride IV 06/11/17 20:30 Infused .[id number] RICHARD Infusion 1 MG/MIN Amiodarone HCl 150 mg/ Sodium 103 mls @ 618 mls/hr 06/11/17 14:29 06/11/17 15 :40 Chloride IV 06/11/17 14:38 Infused O ONE Infusion Heparin Sodium (Porcine) 20,000 unit in 500 mls @ 33 mls/hr 06/11/17 15:30 16:57 Heparin Drip IV Infused .[id number] RICHARD Titration Protocol Sodium Chloride 500 mls @ 250 mls/hr 06/12/17 19:45 06/12/17 21:50 Normal Saline IV 06/12/17 20:44 Infused .Q2H RICHARD Infusion Lisinopril 20 mg 06/09/17 10:45 06/12/17 11:43 Prinivil PO 20 mg DAILY RICHARD Administration Lisinopril 5 mg 06/12/17 17:30 06/12/17 18:17 Prinivil PO Not Given DAILY RICHARD Lorazepam 1 mg 06/09/17 17:15 06/11/17 20:59 Ativan PO 1 mg TID PRN Administration Anxiety Lorazepam 0.5 mg 06/13/17 17:39 06/15/17 08:43 Ativan PO 0.5 mg TID PRN Administration Anxiety Methylprednisolone Sodium Succinate 125 mg 06/09/17 02:14 06/09/17 02:34 Solu-Medrol IVP 06/09/17 02:15 125 mg O ONE Administration Methylprednisolone Sodium Succinate 40 mg 06/09/17 09:00 06/09/17 09:04 Solu-Medrol IM Not Given Q6HR RICHARD Metolazone 5 mg 06/10/17 14:56 06/10/17 15:20 Zaroxolyn PO 06/10/17 14:57 5 mg O ONE Administration Metoprolol Tartrate 25 mg 06/09/17 17:30 06/12/17 11:42 Lopressor PO 25 mg BIDWM RICHARD Administration Pharmacy Consult each 06/15/17 04:01 Pharmacy Consult - Fall Risk 06/15/17 04:02 ONE TIME ONE Potassium Chloride 20 meq 06/14/17 14:39 06/14/17 14:58 K-Dur 20 Meq Tablet PO 06/14/17 14:40 20 meq O ONE Administration Senna/Docusate Sodium 1 tab 06/09/17 03:33 Senna Plus Tablet PO BID PRN Constipation Results 06/18/17 05:16 06/19/17 04:25 Comprehensive Metabolic Panel 06/19/17 Range/Units 04:25 Sodium 144 (134-144) MEQ/L Potassium 4.1 (3.6-5) MEQ/L Chloride 91 L (98-107) MEQ/L Carbon Dioxide 42 H* (22-30) MEQ/L BUN 24.0 H (9-20) MG/DL Creatinine 1.3 D (0.8-1.5) mg/dL Glucose 98 (75-110) MG/DL Calcium 9.6 (8.4-10.2) MG/DL Intake and Output 06/18/17 06/19/17 06/19/17 22:59 06:59 14:59 Intake Total 590 / 590 125 / 125 450 / 450 Output Total 250 / 250 Balance 590 / 590 125 / 125 200 / 200 Intake: Oral 590 / 590 125 / 125 450 / 450 Output: Urine 250 / 250 Other: Urine Appearance Clear Urine Color Straw Stool Color Brown Stool Consistency Soft Formed Size of Bowel Movement Moderate # Voids 1 1 # Bowel Movements 1 Weight 133.5 kg Patient Weight 06/20/17 06:59 Weight 133.5 kg Assessment and Plan - Assessment and Plan (1) Dilated cardiomyopathy Problem details: EF 10-15% with 3/4 diastolic dysfunction on 06/11/17 EF 30% on TTE done 10/2015; global hypokinesis and dilated LV; EF 55% 09/2016 Current visit: No Status: Acute (2) Hypertension Problem details: Off all medications for > 6 months, uncontrolled Current visit: No Status: Acute (3) Acute and chronic respiratory failure with hypoxia Problem details: Chronic secondary to COPD, acute likely a combination of COPD exacerbation and volume overload/systolic heart failure exacerbation Current visit: No Status: Acute (4) Anxiety Problem details: Severe and chronic, untreated, exacerbated by dyspnea Current visit: No Status: Acute (5) Acute chronic obstructive pulmonary disease with respiratory distress Current visit: Yes Status: Acute (6) COPD exacerbation Current visit: No Status: Acute (7) Congestive heart failure Current visit: Yes Status: Acute (8) Abdominal wall cellulitis Current visit: No Status: Acute - Attestation Attestation Narrative: 06/19/17 12:28 Recommendation After examining the patient I agree with the above assessment. I am involved in the formulation of the patient's plan of care. Hospital Course Summary Disclaimer: The visit summary below is not to be considered part of the above Progress Note.
[2017-06-13] MEDS: SALINE FLUSH 10ml SYRINGE IVF PRN (15:50)
--- NOTE | 2017-06-13 17:29 | Progress Note ---
- Date 06/13/17 Subjective: Gray was resting in bed when seen and complained of discomfort associated with cervical spine collar. He denies neck pain but complains of pain around his left eye and cannot open his eye today. Patient has no difficulty opening or closing his mouth and denies pain over the left cheek/zygoma. His breathing is a little better than it was on admission and he denied cough or sputum production. He denies palpitations. He reports lightheadedness when he stands and was reminded is not supposed to be standing currently. His appetite is good and has had no nausea or vomiting since yesterday's fall. Objective Vital signs: Temperature 98 F 06/13/17 15:46 Pulse Rate 62 06/13/17 16:00 Respiratory Rate 20 06/13/17 16:04 Blood Pressure 82/49 06/13/17 15:46 Pulse Oximetry 93 -3 L 06/13/17 16:04 Morbidly obese male, resting in bed-drowsy, mumbled speech NAD, no tenderness on palpation along the occipital ridge or over the cervical spine/paraspinal musculature Increased soft tissue swelling around the left eye with extensive bruising, no tenderness on palpation over the left zygoma; superficial abrasions over the left zygoma and faint bruising the tip of the nose Sensation intact 4 extremities, hip hop artist symmetric-4/5, dorsiflexes/plantar flexes symmetrically and raises legs symmetrically although effort is poor. Superficial abrasion on the lower left abdomen without inflammation. Respirations nonlabored, decreased airflow throughout, breath sounds clear, no wheezing present Regular rhythm, [id number] heart tones Abdomen soft, nontender, bowel sounds diminished +3 edema bilateral lower extremities Height/Weight/BMI: Height 1.78 m Weight 135.3 kg Body Mass Index 44.4 Results - Labs CBC & Chem 7: 06/12/17 17:01 06/13/17 04:31 - Imaging and Cardiology CT scan - head Status: image reviewed by me (no acute intracranial pathology, soft tissue swelling present around left orbit-preseptal per radiology; no facial fractures present, small amount of fluid in the left maxillary sinus with chronic appearance by my review although blood cannot be fully excluded.) CT cervical spine Status: image reviewed by me (no acute traumatic abnormalities; multilevel degenerative changes reported by radiology) Assessment and Plan (1) Dilated cardiomyopathy Problem details: EF 30% on TTE done 10/2015; global hypokinesis and dilated LV; EF 55% 09/2016 Current visit: No Status: Acute (2) COPD, severe Problem details: on 3L NC chronically at home Current visit: No Status: Chronic (3) Acute and chronic respiratory failure with hypoxia Problem details: Chronic secondary to COPD, acute likely a combination of COPD exacerbation and volume overload/systolic heart failure exacerbation Current visit: No Status: Acute Assessment and Plan: Assessment Acute on chronic CHF Volume overload Dilated cardiomyopathy Chronic hypercarbic/hypoxic respiratory failure Hypertension COPD Obstructive sleep apnea Diabetes mellitus, type II-diet controlled-A1C 6.1 05/01/17 Peripheral neuropathy Morbid obesity Depression/anxiety Fall versus syncope with head injury-06/12/17 Hypotension-06/13/15 Acute kidney injury Plan Patient remains mildly hypotensive this today; diuretics remain on hold. Gray received 500 mL fluid yesterday evening due to hypotension. Lisinopril and carvedilol dose is decreased. Due to severity of cardiomyopathy will need to resume medications as soon as blood pressure permits. Events of yesterday evening reviewed with cardiology; patient remains in sinus rhythm following cardioversion yesterday. Patient did not try CPAP last night due to facial injuries but is willing to try as tolerated today and tonight. Reminded to use CPAP both overnight and with daytime naps. Creatinine up today-1.9; BUN/creatinine were slightly elevated yesterday morning reflecting diuresis but worsened following hypertension yesterday. Repeat labs now. If creatinine climbing further will replace additional volume this evening. Patient remains at high risk for complications due to combined cardiomyopathy, nocturnal hypoxia, and hemodynamic instability. - Physician Narrative Narrative: Date: 06/13/17 Time: 1724 Hospital Course Summary Disclaimer: The visit summary below is not to be considered part of the above Progress Note. Hospital Course: 06/09/17 Diuresis initiated overnight and will be continued with IV Lasix. Weight is up 17 kg in 5 weeks consistent with describe symptoms. Monitor electrolytes in the event supplemental potassium or magnesium becomes necessary. Continue supplemental oxygen. Resume metoprolol, lisinopril, and simvastatin as previously prescribed. Anticipate echocardiogram early next week. Continue Accu-Cheks, converted to diabetic diet with fluid restriction of 1800 mL per 24 hours. Albuterol/Atrovent treatments ordered 4 times daily and when necessary. Patient has requested lorazepam "that he takes at home" per nursing report which will require further clarification as this was neither prescribed at discharge nor reported by patient when I spoke with him. Sertraline was prescribed for his chronic anxiety/depressive disorder and will be resumed. 06/10/17 Currently on Lasix 60 mg IV every 6 hours without significant results. Will add one time dose of metolazone 5 mg by mouth now. Down 2.6 kilograms since admission. Echocardiogram early next week. Accu-Cheks ordered. Continue diabetic diet with fluid restriction of 1800 mL per 24 hours. Continue DuoNeb treatments. Add Pulmicort for wheezing. Add Neurontin for his neuropathic pain. Start at 300 mg daily and increase as tolerated. 06/11/17 Diamox 500mg po x 1 for CO2 retention. Currently on Lasix 60 mg IV every 6 hours. Had one time dose of metolazone 5 mg po yesterday with good results. Weight down almost 6 kilograms since admission. Tachycardic since last evening despite metoprolol 25 BID--> atrial flutter with variable block. Echocardiogram with severely reduced ejection fraction of approximate 10-15% and akinetic mid apical anterior, mid apical anteroseptal, and mid apical anterolateral wall. 3/4 diastolic dysfunction. Cardiology consulted for altered rhythm and cardiomyopathy-amiodarone and heparin drips initiated. Neurontin added yesterday for his neuropathic pain. Increase to TID. Consult OT/PT. Maintaining at home O2 at 3L; known diagnosis VALARIE, overnight oximetry tonight prior to trial of CPAP. 06/12/17 Patient hypotensive this afternoon corresponding to fall or syncopal event with facial injuries. For CT head and cervical spine; being placed in cervical collar at this time. Diuretics on hold, if blood pressure remains low small fluid bolus will be given. Carvedilol and lisinopril doses decreased by 50% pending stabilization of blood pressure. Discussed with Dr. Merchant after initial report of hypotension however it appeared to be artifactual at that time. Patient was on heparin earlier in the day; nursing reports heparin was off 30- 60 minutes prior to fall. Brief nasal bleeding reported immediately after fall. Successfully cardioverted to sinus rhythm earlier today-remains in sinus rhythm. Dr. Merchant has discussed Life Vest with patient in addition need for aggressive medical management due to severity of cardiac disease. Patient critically [id number] for complications of unstable blood pressure/ head injury. Overnight oximetry demonstrated moderate interference; oxygen saturation was < 89% for 10 minutes (patient was on 3 L oxygen by nasal cannula until 0230, 2 L from [id number], then CPAP from [id number]. Lowest oxygen saturation reported was 79% and the longest desaturation was 57 seconds. [place] pattern evident on tracing. Patient did not tolerate standard face mask with CPAP last night-nasal mask to be tried tonight. 06/13/17 Patient remains mildly hypotensive this today; diuretics remain on hold. Gray received 500 mL fluid yesterday evening due to hypotension. Lisinopril and carvedilol dose is decreased. Due to severity of cardiomyopathy will need to resume medications as soon as blood pressure permits. Events of yesterday evening reviewed with cardiology; patient remains in sinus rhythm following cardioversion yesterday. Patient did not try CPAP last night due to facial injuries but is willing to try as tolerated today and tonight. Reminded to use CPAP both overnight and with daytime naps. Creatinine up today-1.9; BUN/creatinine were slightly elevated yesterday morning reflecting diuresis but worsened following hypertension yesterday. Repeat labs now. If creatinine climbing further will replace additional volume this evening. Patient remains at high risk for complications due to combined cardiomyopathy, nocturnal hypoxia, and hemodynamic instability.
[2017-06-13] MEDS: RIVAROXABAN 20 MG TABLET PO SCH (18:34)
[2017-06-13] MEDS: SIMVASTATIN 20 MG TABLET PO SCH (21:10)
[2017-06-13] MEDS: LORazepam 0.5 MG TABLET PO PRN (21:13)
[2017-06-14] MEDS: ALBUTEROL/IPRATROPIUM 2.5mg-0.5mg/3ml NEB AEROSOL PRN ×2 (00:40→05:09)
[2017-06-14] MEDS: HYDROCODONE/APAP 5mg/325mg TABLET PO PRN ×3 (01:09→20:57)
[2017-06-14] MEDS: ALBUTEROL/IPRATROPIUM 2.5mg-0.5mg/3ml NEB AEROSOL SCH ×5 (04:25→18:30)
[2017-06-14] MEDS: SALINE FLUSH 10ml SYRINGE IVF PRN (06:14)
[2017-06-14] MEDS: BUDESONIDE INH.SOLN 0.5mg/2ml NEB AEROSOL SCH ×3 (06:49→18:30)
[2017-06-14] MEDS ORDERED: FUROSEMIDE 80 MG TABLET PO SCH (09:00)
[2017-06-14] MEDS: AMIODARONE 200 MG TABLET PO SCH (09:01)
[2017-06-14] MEDS: LORazepam 0.5 MG TABLET PO PRN (09:01)
[2017-06-14] MEDS: GABAPENTIN 300 MG CAPSULE PO SCH ×3 (09:01→20:53)
[2017-06-14] MEDS: CARVEDILOL 3.125 MG TABLET PO SCH ×2 (09:01→18:05)
[2017-06-14] MEDS: SENNA + DOCUSATE TABLET PO SCH ×2 (09:01→20:54)
[2017-06-14] MEDS: SERTRALINE 50 MG TABLET PO SCH (09:01)
[2017-06-14] MEDS: LISINOPRIL 2.5 MG TABLET PO SCH (09:01)
[2017-06-14] MEDS: acetaZOLAMIDE 250 MG TABLET PO SCH ×2 (11:05→20:53)
--- NOTE | 2017-06-14 11:54 | Cardiology Progress Note ---
<Caryl Salas M - Last Filed: 06/15/17 15:01> Subjective Principal diagnosis: Severe Non-ischemic Dialated CM, Atrial fibrillation Interval history: Gray is seen in follow up for NI dilated CM, A Fib. He is currently wearing 3L/ NC, sitting up on the bedside, his son is at the bedside. He denies chest pain or pressure, palpitations or dizziness. Exam Vital signs: Temperature 97.7 F 06/14/17 03:22 Pulse Rate 78 06/14/17 08:58 Respiratory Rate 22 06/14/17 08:35 Blood Pressure 118/87 06/14/17 08:58 Pulse Oximetry 92 06/14/17 08:35 Inpatient Medications: Generic Name Dose Route Start Last Admin Trade Name Freq PRN Reason Stop Dose Admin Acetaminophen 650 mg 06/10/17 14:38 06/13/17 00:13 Tylenol PO 650 mg Q5H PRN Administration Discomfort Hydrocodone Bitart/Acetaminophen 1 - 2 tab 06/12/17 19:34 06/14/17 06:12 [place] 5/325 PO 2 tab Q4H PRN Administration Pain Acetazolamide 250 mg 06/14/17 10:16 06/14/17 11:05 Diamox PO 250 mg BID RICHARD Administration Albuterol/Ipratropium 3 ml 06/09/17 11:00 06/14/17 08:35 Duoneb AEROSOL 3 ml RTQID RICHARD Administration Albuterol/Ipratropium 3 ml 06/09/17 10:34 06/14/17 05:09 Duoneb AEROSOL 3 ml QID PRN Administration Shortness of air/wheezing Amiodarone HCl 200 mg 06/12/17 16:45 06/14/17 09:01 Pacerone PO 200 mg DAILY RICHARD Administration Budesonide 0.5 mg 06/10/17 19:00 06/14/17 08:35 Pulmicort Inhalation AEROSOL 0.5 mg RTBID RICHARD Administration Carvedilol 3.125 mg 06/12/17 17:47 06/14/17 09:01 Coreg PO 3.125 mg BIDWM RICHARD Administration Furosemide 80 mg 06/14/17 09:00 Lasix 80 Mg Tab PO DAILY RICHARD Gabapentin 300 mg 06/11/17 09:58 06/14/17 09:01 Neurontin PO 300 mg TID RICHARD Administration Lisinopril 2.5 mg 06/13/17 09:00 06/14/17 09:01 Prinivil PO 2.5 mg DAILY RICHARD Administration Lorazepam 0.5 mg 06/13/17 17:39 06/14/17 09:01 Ativan PO 0.5 mg TID PRN Administration Anxiety Metoclopramide HCl 5 mg 06/09/17 03:33 Reglan IVP Q6H PRN Rivaroxaban 20 mg 06/13/17 17:30 06/13/17 18:34 Xarelto PO 20 mg WS RICHARD Administration Senna/Docusate Sodium 2 tab 06/10/17 21:00 06/14/17 09:01 Senna Plus Tablet PO 2 tab BID RICHARD Administration Sertraline HCl 50 mg 06/10/17 09:00 06/14/17 09:01 Zoloft PO 50 mg DAILY RICHARD Administration Simvastatin 20 mg 06/09/17 21:00 06/13/17 21:10 Zocor PO 20 mg HS RICHARD Administration Sodium Chloride 10 - 80 ml 06/09/17 02:14 06/14/17 06:14 Iv Flush IVF 10 ml PRN PRN Administration Flushing Discontinued Medications Generic Name Dose Route Start Last Admin Trade Name Freq PRN Reason Stop Dose Admin Hydrocodone Bitart/Acetaminophen 1 tab 06/09/17 03:33 06/12/17 11:52 [place] 5/325 PO 1 tab Q6H PRN Administration Pain Acetazolamide 500 mg 06/11/17 09:59 06/11/17 11:18 Diamox PO 06/11/17 10:00 500 mg O ONE Administration Acetazolamide Sodium 250 mg 06/12/17 16:45 06/12/17 19:32 Diamox Inj IV Not Given DAILY RICHARD Albuterol Sulfate 7.5 mg 06/09/17 02:35 06/09/17 02:47 Proventil Neb (0.083%) AEROSOL 06/09/17 02:36 7.5 mg O ONE Administration Albuterol/Ipratropium 3 ml 06/09/17 02:14 06/09/17 02:28 Duoneb IH 06/09/17 02:15 3 ml ONCE ONE Administration Carvedilol 6.25 mg 06/12/17 17:30 06/12/17 18:17 Coreg PO Not Given BIDWM RICHARD Furosemide 80 mg 06/09/17 02:34 06/09/17 02:38 Lasix 100 Mg/10 Ml IVP 06/09/17 02:35 80 mg O ONE Administration Furosemide 60 mg 06/09/17 09:00 06/12/17 16:58 Lasix 40 Mg/4 Ml IVP Not Given Q6HR RICHARD Furosemide 80 mg 06/12/17 17:00 06/12/17 18:16 Lasix 80 Mg Tab PO Not Given 0900,1700 RICHARD Gabapentin 300 mg 06/10/17 21:00 06/10/17 21:41 Neurontin PO 300 mg HS RICHARD Administration Heparin Sodium (Beef Lung) 8,000 unit 06/11/17 15:30 06/11/17 16:12 Heparin Bolus IV 06/11/17 15:31 8,000 unit O ONE Administration Heparin Sodium (Porcine) 1 each 06/11/17 14:29 Pharmacy Consult - Heparin MC 06/11/17 14:30 ONE TIME ONE Amiodarone HCl 900 mg/ Sodium 500 mls @ 16.66 mls/hr 06/11/17 14:30 06/12/17 16:58 Chloride IV Infused .Q24H RICHARD Infusion 0.5 MG/MIN Amiodarone HCl 450 mg/ Sodium 250 mls @ 33.33 mls/hr 06/11/17 14:30 06/12/17 00:18 Chloride IV 06/11/17 20:30 Infused .[id number] RICHARD Infusion 1 MG/MIN Amiodarone HCl 150 mg/ Sodium 103 mls @ 618 mls/hr 06/11/17 14:29 06/11/17 15 :40 Chloride IV 06/11/17 14:38 Infused O ONE Infusion Heparin Sodium (Porcine) 20,000 unit in 500 mls @ 33 mls/hr 06/11/17 15:30 16:57 Heparin Drip IV Infused .[id number] RICHARD Titration Protocol Sodium Chloride 500 mls @ 250 mls/hr 06/12/17 19:45 06/12/17 21:50 Normal Saline IV 06/12/17 20:44 Infused .Q2H RICHARD Infusion Lisinopril 20 mg 06/09/17 10:45 06/12/17 11:43 Prinivil PO 20 mg DAILY RICHARD Administration Lisinopril 5 mg 06/12/17 17:30 06/12/17 18:17 Prinivil PO Not Given DAILY RICHARD Lorazepam 1 mg 06/09/17 17:15 06/11/17 20:59 Ativan PO 1 mg TID PRN Administration Anxiety Methylprednisolone Sodium Succinate 125 mg 06/09/17 02:14 06/09/17 02:34 Solu-Medrol IVP 06/09/17 02:15 125 mg O ONE Administration Methylprednisolone Sodium Succinate 40 mg 06/09/17 09:00 06/09/17 09:04 Solu-Medrol IM Not Given Q6HR RICHARD Metolazone 5 mg 06/10/17 14:56 06/10/17 15:20 Zaroxolyn PO 06/10/17 14:57 5 mg O ONE Administration Metoprolol Tartrate 25 mg 06/09/17 17:30 06/12/17 11:42 Lopressor PO 25 mg BIDWM RICHARD Administration Senna/Docusate Sodium 1 tab 06/09/17 03:33 Senna Plus Tablet PO BID PRN Constipation - Constitutional no acute distress, morbidly obese, cooperative - Routine HEENT Exam Head: Present: normocephalic ENT: Present: mucous membranes dry - Routine Neck Exam Absent: JVD, carotid bruit - Routine Chest/Breast/Axilla Exam Chest wall: Absent: tenderness - Routine Respiratory Exam Present: decreased breath sounds. Absent: dyspnea - Routine Cardiovascular Exam Present: RRR. Absent: JVD - Routine Abdominal Exam Present: soft, non tender - Routine Extremities Exam Present: edema - Routine Skin Exam Present: intact, dry, warm, ecchymosis (left eye/ cheek) - Routine Neurological Exam Present: alert, oriented X3 - Routine Psychiatric Exam Present: normal affect Results 06/15/17 04:04 06/15/17 04:04 CBC 06/14/17 Range/Units 04:22 WBC 9.8 (4.5-11.0) T/MM3 RBC 4.57 (4.50-5.90) M/MM3 Hgb 12.4 L (13.5-17.5) GM/DL Hct 41.3 (41-53) % Plt Count 142 (130-400) T/MM3 Neut # (Auto) 7.5 (1.8-7.7) T/MM3 Lymph # (Auto) 1.3 (1-4.8) T/MM3 [place] # (Auto) 1.0 H (0-0.8) T/MM3 Eos # (Auto) 0.1 (0-0.5) T/MM3 Baso # (Auto) 0.0 (0-0.2) T/MM3 Comprehensive Metabolic Panel 06/13/17 06/14/17 Range/Units 19:09 04:22 Sodium 133 L 133 L (134-144) MEQ/L Potassium 3.6 3.5 L (3.6-5) MEQ/L Chloride 78 L 77 L (98-107) MEQ/L Carbon Dioxide 43 H* 46 H* (22-30) MEQ/L BUN 48.0 H 51.0 H* (9-20) MG/DL Creatinine 1.9 H 1.8 H (0.8-1.5) mg/dL Glucose 130 H 117 H (75-110) MG/DL Calcium 8.4 8.3 L (8.4-10.2) MG/DL Intake and Output 06/13/17 06/14/17 06/14/17 22:59 06:59 14:59 Intake Total 350 / 350 90 / 90 480 / 480 Output Total 475 / 475 200 / 200 Balance 350 / 350 -385 / -385 280 / 280 Intake: Oral 350 / 350 90 / 90 480 / 480 Output: Urine 475 / 475 200 / 200 Other: Urine Appearance Clear Clear Urine Color Yellow Yellow Urine Odor Normal - Imaging and Cardiology Imaging & Cardiology Narrative: Atrial flutter with variable block Acute on Chronic systolic heart failure Medical and Lifestyle Non-Compliance Morbid Obesity Severe COPD Acute on chronic hypoxic respiratory failure 06/11/2017 Start IV Amiodarone and IV Heparin Will consider DCCV in AM if patient does not convert to NSR Agree with aggressive IV diuresis Patient's EF has decreased and now at approx 15%. His last HC 2014 revealing no significant CAD Likely the decreased EF is due to his arrhythmia We will attempt to regain NSR in an effort to improve his cardiac output as much as possible Continue B-Debbie and MANI-I NPO at midnight in the event we need to proceed with his JANEEN and DCCV This patient may need a Life Vest - will need to assess for compliance before placing the vest 06/12/2017 Patient had a successful DCCV into NSR today We will start him on Xarelto 20mg one tablet daily Patient now has Disability Medicare Insurance and Medicaid is pending Patient wants a Life vest - order has been put in place He understands the importance of compliance He said the only reason he was not compliant was due to financial reasons - "just did not have the money" We will change IV Lasix to oral Lasix 80mg po BID and start Diamox IV 250mg daily in an effort to improve his metabolic alkalosis Change to oral Amiodarone 200mg one tablet daily Patient will need Coreg, Lisinopril, Xarelto upon discharge patient will need to be on a 2 gram sodium restriction and a 2 Liter fluid restriction daily He will need to be followed in our clinic regularly to follow his CHF Patient's EF approx 10 to 15% 06/13/17 Remains hypotensive. - Agree with decreased doses of Coreg and Lisinopril if tolerates - Hold diuretic today, change to daily tomorrow. 06/14/17 13:42 Assessment and Plan - Assessment and Plan (1) Dilated cardiomyopathy Problem details: EF 10-15% with 3/4 diastolic dysfunction on 06/11/17 EF 30% on TTE done 10/2015; global hypokinesis and dilated LV; EF 55% 09/2016 Current visit: No Status: Acute (2) Hypertension Problem details: Off all medications for > 6 months, uncontrolled Current visit: No Status: Acute (3) Acute and chronic respiratory failure with hypoxia Problem details: Chronic secondary to COPD, acute likely a combination of COPD exacerbation and volume overload/systolic heart failure exacerbation Current visit: No Status: Acute (4) Anxiety Problem details: Severe and chronic, untreated, exacerbated by dyspnea Current visit: No Status: Acute (5) Acute chronic obstructive pulmonary disease with respiratory distress Current visit: Yes Status: Acute (6) COPD exacerbation Current visit: No Status: Acute (7) Congestive heart failure Current visit: Yes Status: Acute (8) Abdominal wall cellulitis Current visit: No Status: Acute - Assessment and Plan Atrial flutter with variable block Acute on Chronic systolic heart failure Medical and Lifestyle Non-Compliance Morbid Obesity Severe COPD Acute on chronic hypoxic respiratory failure 06/11/2017 Start IV Amiodarone and IV Heparin Will consider DCCV in AM if patient does not convert to NSR Agree with aggressive IV diuresis Patient's EF has decreased and now at approx 15%. His last HC 2014 revealing no significant CAD Likely the decreased EF is due to his arrhythmia We will attempt to regain NSR in an effort to improve his cardiac output as much as possible Continue B-Debbie and MANI-I NPO at midnight in the event we need to proceed with his JANEEN and DCCV This patient may need a Life Vest - will need to assess for compliance before placing the vest 06/12/2017 Patient had a successful DCCV into NSR today We will start him on Xarelto 20mg one tablet daily Patient now has Disability Medicare Insurance and Medicaid is pending Patient wants a Life vest - order has been put in place He understands the importance of compliance He said the only reason he was not compliant was due to financial reasons - "just did not have the money" We will change IV Lasix to oral Lasix 80mg po BID and start Diamox IV 250mg daily in an effort to improve his metabolic alkalosis Change to oral Amiodarone 200mg one tablet daily Patient will need Coreg, Lisinopril, Xarelto upon discharge patient will need to be on a 2 gram sodium restriction and a 2 Liter fluid restriction daily He will need to be followed in our clinic regularly to follow his CHF Patient's EF approx 10 to 15% 06/13/17 Remains hypotensive. - Agree with decreased doses of Coreg and Lisinopril if tolerates - Hold diuretic today, change to daily tomorrow. 06/14/17 Continue to hold Lasix, Continue Diamox - Consider Coumadin instead of Xarelto due to financial cost. Hospital Course Summary Disclaimer: The visit summary below is not to be considered part of the above Progress Note. Hospital Course: 06/09/17 Diuresis initiated overnight and will be continued with IV Lasix. Weight is up 17 kg in 5 weeks consistent with describe symptoms. Monitor electrolytes in the event supplemental potassium or magnesium becomes necessary. Continue supplemental oxygen. Resume metoprolol, lisinopril, and simvastatin as previously prescribed. Anticipate echocardiogram early next week. Continue Accu-Cheks, converted to diabetic diet with fluid restriction of 1800 mL per 24 hours. Albuterol/Atrovent treatments ordered 4 times daily and when necessary. Patient has requested lorazepam "that he takes at home" per nursing report which will require further clarification as this was neither prescribed at discharge nor reported by patient when I spoke with him. Sertraline was prescribed for his chronic anxiety/depressive disorder and will be resumed. 06/10/17 Currently on Lasix 60 mg IV every 6 hours without significant results. Will add one time dose of metolazone 5 mg by mouth now. Down 2.6 kilograms since admission. Echocardiogram early next week. Accu-Cheks ordered. Continue diabetic diet with fluid restriction of 1800 mL per 24 hours. Continue DuoNeb treatments. Add Pulmicort for wheezing. Add Neurontin for his neuropathic pain. Start at 300 mg daily and increase as tolerated. 06/11/17 Diamox 500mg po x 1 for CO2 retention. Currently on Lasix 60 mg IV every 6 hours. Had one time dose of metolazone 5 mg po yesterday with good results. Weight down almost 6 kilograms since admission. Tachycardic since last evening despite metoprolol 25 BID--> atrial flutter with variable block. Echocardiogram with severely reduced ejection fraction of approximate 10-15% and akinetic mid apical anterior, mid apical anteroseptal, and mid apical anterolateral wall. 3/4 diastolic dysfunction. Cardiology consulted for altered rhythm and cardiomyopathy-amiodarone and heparin drips initiated. Neurontin added yesterday for his neuropathic pain. Increase to TID. Consult OT/PT. Maintaining at home O2 at 3L; known diagnosis VALARIE, overnight oximetry tonight prior to trial of CPAP. 06/12/17 Patient hypotensive this afternoon corresponding to fall or syncopal event with facial injuries. For CT head and cervical spine; being placed in cervical collar at this time. Diuretics on hold, if blood pressure remains low small fluid bolus will be given. Carvedilol and lisinopril doses decreased by 50% pending stabilization of blood pressure. Discussed with Dr. Merchant after initial report of hypotension however it appeared to be artifactual at that time. Patient was on heparin earlier in the day; nursing reports heparin was off 30- 60 minutes prior to fall. Brief nasal bleeding reported immediately after fall. Successfully cardioverted to sinus rhythm earlier today-remains in sinus rhythm. Dr. Merchant has discussed Life Vest with patient in addition need for aggressive medical management due to severity of cardiac disease. Patient critically [id number] for complications of unstable blood pressure/ head injury. Overnight oximetry demonstrated moderate interference; oxygen saturation was < 89% for 10 minutes (patient was on 3 L oxygen by nasal cannula until 0230, 2 L from [id number], then CPAP from [id number]. Lowest oxygen saturation reported was 79% and the longest desaturation was 57 seconds. [place] pattern evident on tracing. Patient did not tolerate standard face mask with CPAP last night-nasal mask to be tried tonight. <Lee Merchant - Last Filed: 06/19/17 12:32> Exam Vital signs: Temperature 98.2 F 06/19/17 07:54 Pulse Rate 81 06/19/17 08:00 Respiratory Rate 18 06/19/17 11:05 Blood Pressure 153/97 H 06/19/17 07:54 Pulse Oximetry 93 06/19/17 11:05 Inpatient Medications: Generic Name Dose Route Start Last Admin Trade Name Freq PRN Reason Stop Dose Admin Acetaminophen 650 mg 06/10/17 14:38 06/15/17 20:18 Tylenol PO 650 mg Q5H PRN Administration Discomfort Hydrocodone Bitart/Acetaminophen 1 - 2 tab 06/12/17 19:34 06/19/17 08:56 [place] 5/325 PO 1 tab Q4H PRN Administration Pain Acetazolamide 250 mg 06/14/17 10:16 06/19/17 08:55 Diamox PO 250 mg BID RICHARD Administration Albuterol/Ipratropium 3 ml 06/09/17 11:00 06/19/17 11:05 Duoneb AEROSOL 3 ml RTQID RICHARD Administration Albuterol/Ipratropium 3 ml 06/09/17 10:34 06/17/17 04:59 Duoneb AEROSOL 3 ml QID PRN Administration Shortness of air/wheezing Alprazolam 0.5 mg 06/15/17 10:52 06/19/17 10:00 Xanax PO 0.5 mg TID PRN Administration Anxiety Amiodarone HCl 200 mg 06/12/17 16:45 06/19/17 08:55 Pacerone PO 200 mg DAILY RICHARD Administration Artificial Tears 1 drop 06/14/17 14:17 Refresh Classic EACH EYE QID PRN Carvedilol 3.125 mg 06/12/17 17:47 06/19/17 08:55 Coreg PO 3.125 mg BIDWM RICHARD Administration Furosemide 40 mg 06/19/17 09:00 06/19/17 08:55 Lasix 40 Mg Tab PO 40 mg DAILY RICHARD Administration Gabapentin 300 mg 06/11/17 09:58 06/19/17 08:55 Neurontin PO 300 mg TID RICHARD Administration Lisinopril 2.5 mg 06/13/17 09:00 06/19/17 08:55 Prinivil PO 2.5 mg DAILY RICHARD Administration Metoclopramide HCl 5 mg 06/09/17 03:33 Reglan IVP Q6H PRN Rivaroxaban 20 mg 06/13/17 17:30 06/18/17 18:10 Xarelto PO 20 mg WS RICHARD Administration Senna/Docusate Sodium 2 tab 06/10/17 21:00 06/19/17 08:56 Senna Plus Tablet PO 2 tab BID RICHARD Administration Sertraline HCl 50 mg 06/10/17 09:00 06/19/17 08:56 Zoloft PO 50 mg DAILY RICHARD Administration Simvastatin 20 mg 06/09/17 21:00 06/18/17 20:55 Zocor PO 20 mg HS RICHARD Administration Sodium Chloride 10 - 80 ml 06/09/17 02:14 06/16/17 20:49 Iv Flush IVF 10 ml PRN PRN Administration Flushing Discontinued Medications Generic Name Dose Route Start Last Admin Trade Name Freq PRN Reason Stop Dose Admin Hydrocodone Bitart/Acetaminophen 1 tab 06/09/17 03:33 06/12/17 11:52 [place] 5/325 PO 1 tab Q6H PRN Administration Pain Acetazolamide 500 mg 06/11/17 09:59 06/11/17 11:18 Diamox PO 06/11/17 10:00 500 mg O ONE Administration Acetazolamide Sodium 250 mg 06/12/17 16:45 06/12/17 19:32 Diamox Inj IV Not Given DAILY RICHARD Albuterol Sulfate 7.5 mg 06/09/17 02:35 06/09/17 02:47 Proventil Neb (0.083%) AEROSOL 06/09/17 02:36 7.5 mg O ONE Administration Albuterol/Ipratropium 3 ml 06/09/17 02:14 06/09/17 02:28 Duoneb IH 06/09/17 02:15 3 ml ONCE ONE Administration Budesonide 0.5 mg 06/10/17 19:00 06/18/17 20:20 Pulmicort Inhalation AEROSOL 0.5 mg RTBID RICHARD Administration Carvedilol 6.25 mg 06/12/17 17:30 06/12/17 18:17 Coreg PO Not Given BIDWM RICHARD Furosemide 80 mg 06/09/17 02:34 06/09/17 02:38 Lasix 100 Mg/10 Ml IVP 06/09/17 02:35 80 mg O ONE Administration Furosemide 60 mg 06/09/17 09:00 06/12/17 16:58 Lasix 40 Mg/4 Ml IVP Not Given Q6HR RICHARD Furosemide 80 mg 06/12/17 17:00 06/12/17 18:16 Lasix 80 Mg Tab PO Not Given 0900,1700 RICHARD Furosemide 80 mg 06/14/17 09:00 Lasix 80 Mg Tab PO DAILY RICHARD Furosemide 40 mg 06/18/17 13:15 06/18/17 18:10 Lasix 40 Mg Tab PO 40 mg 0900,1700 RICHARD Administration Gabapentin 300 mg 06/10/17 21:00 06/10/17 21:41 Neurontin PO 300 mg HS RICHARD Administration Heparin Sodium (Beef Lung) 8,000 unit 06/11/17 15:30 06/11/17 16:12 Heparin Bolus IV 06/11/17 15:31 8,000 unit O ONE Administration Heparin Sodium (Porcine) 1 each 06/11/17 14:29 Pharmacy Consult - Heparin 06/11/17 14:30 ONE TIME ONE Amiodarone HCl 900 mg/ Sodium 500 mls @ 16.66 mls/hr 06/11/17 14:30 06/12/17 16:58 Chloride IV Infused .Q24H RICHARD Infusion 0.5 MG/MIN Amiodarone HCl 450 mg/ Sodium 250 mls @ 33.33 mls/hr 06/11/17 14:30 06/12/17 00:18 Chloride IV 06/11/17 20:30 Infused .[id number] RICHARD Infusion 1 MG/MIN Amiodarone HCl 150 mg/ Sodium 103 mls @ 618 mls/hr 06/11/17 14:29 06/11/17 15 :40 Chloride IV 06/11/17 14:38 Infused O ONE Infusion Heparin Sodium (Porcine) 20,000 unit in 500 mls @ 33 mls/hr 06/11/17 15:30 16:57 Heparin Drip IV Infused .[id number] RICHARD Titration Protocol Sodium Chloride 500 mls @ 250 mls/hr 06/12/17 19:45 06/12/17 21:50 Normal Saline IV 06/12/17 20:44 Infused .Q2H RICHARD Infusion Lisinopril 20 mg 06/09/17 10:45 06/12/17 11:43 Prinivil PO 20 mg DAILY RICHARD Administration Lisinopril 5 mg 06/12/17 17:30 06/12/17 18:17 Prinivil PO Not Given DAILY RICHARD Lorazepam 1 mg 06/09/17 17:15 06/11/17 20:59 Ativan PO 1 mg TID PRN Administration Anxiety Lorazepam 0.5 mg 06/13/17 17:39 06/15/17 08:43 Ativan PO 0.5 mg TID PRN Administration Anxiety Methylprednisolone Sodium Succinate 125 mg 06/09/17 02:14 06/09/17 02:34 Solu-Medrol IVP 06/09/17 02:15 125 mg O ONE Administration Methylprednisolone Sodium Succinate 40 mg 06/09/17 09:00 06/09/17 09:04 Solu-Medrol IM Not Given Q6HR RICHARD Metolazone 5 mg 06/10/17 14:56 06/10/17 15:20 Zaroxolyn PO 06/10/17 14:57 5 mg O ONE Administration Metoprolol Tartrate 25 mg 06/09/17 17:30 06/12/17 11:42 Lopressor PO 25 mg BIDWM RICHARD Administration Pharmacy Consult each 06/15/17 04:01 Pharmacy Consult - Fall Risk 06/15/17 04:02 ONE TIME ONE Potassium Chloride 20 meq 06/14/17 14:39 06/14/17 14:58 K-Dur 20 Meq Tablet PO 06/14/17 14:40 20 meq O ONE Administration Senna/Docusate Sodium 1 tab 06/09/17 03:33 Senna Plus Tablet PO BID PRN Constipation Results 06/18/17 05:16 06/19/17 04:25 Comprehensive Metabolic Panel 06/19/17 Range/Units 04:25 Sodium 144 (134-144) MEQ/L Potassium 4.1 (3.6-5) MEQ/L Chloride 91 L (98-107) MEQ/L Carbon Dioxide 42 H* (22-30) MEQ/L BUN 24.0 H (9-20) MG/DL Creatinine 1.3 D (0.8-1.5) mg/dL Glucose 98 (75-110) MG/DL Calcium 9.6 (8.4-10.2) MG/DL Intake and Output 06/18/17 06/19/17 06/19/17 22:59 06:59 14:59 Intake Total 590 / 590 125 / 125 450 / 450 Output Total 250 / 250 Balance 590 / 590 125 / 125 200 / 200 Intake: Oral 590 / 590 125 / 125 450 / 450 Output: Urine 250 / 250 Other: Urine Appearance Clear Urine Color Straw Stool Color Brown Stool Consistency Soft Formed Size of Bowel Movement Moderate # Voids 1 1 # Bowel Movements 1 Weight 133.5 kg Patient Weight 06/20/17 06:59 Weight 133.5 kg Assessment and Plan - Assessment and Plan (1) Dilated cardiomyopathy Problem details: EF 10-15% with 3/4 diastolic dysfunction on 06/11/17 EF 30% on TTE done 10/2015; global hypokinesis and dilated LV; EF 55% 09/2016 Current visit: No Status: Acute (2) Hypertension Problem details: Off all medications for > 6 months, uncontrolled Current visit: No Status: Acute (3) Acute and chronic respiratory failure with hypoxia Problem details: Chronic secondary to COPD, acute likely a combination of COPD exacerbation and volume overload/systolic heart failure exacerbation Current visit: No Status: Acute (4) Anxiety Problem details: Severe and chronic, untreated, exacerbated by dyspnea Current visit: No Status: Acute (5) Acute chronic obstructive pulmonary disease with respiratory distress Current visit: Yes Status: Acute (6) COPD exacerbation Current visit: No Status: Acute (7) Congestive heart failure Current visit: Yes Status: Acute (8) Abdominal wall cellulitis Current visit: No Status: Acute - Attestation Attestation Narrative: 06/19/17 12:32 Recommendation After examining the patient I agree with the above assessment. I am involved in the formulation of the patient's plan of care. Hospital Course Summary Disclaimer: The visit summary below is not to be considered part of the above Progress Note.
[2017-06-14] MEDS ORDERED: REFRESH CLASSIC Eye Drops 0.4ml EACH EYE PRN (14:17)
--- NOTE | 2017-06-14 14:33 | Progress Note ---
- Date 06/14/17 Subjective: Gray was trying to get some sleep and wasn't very talkative. He is having pain on the left side of his jaw which increases when he opens his mouth. He cannot open his left eye. He is still in quite a bit of pain. He denies shortness of breath but his breathing is starting to feel tight and he requests a breathing treatment, especially if he will need to lay on his back for maxillofacial CT. He denies chest pain. No abdominal pain or GI complaints. Objective Vital signs: Temperature 96.7 F L 06/14/17 12:00 Pulse Rate 73 06/14/17 12:00 Respiratory Rate 18 06/14/17 12:00 Blood Pressure 101/80 06/14/17 12:00 Pulse Oximetry 92 06/14/17 12:00 Height/Weight/BMI: Height 1.78 m Weight 136.1 kg Body Mass Index 44.4 - Constitutional Present: no acute distress, well nourished, well developed, morbidly obese - Routine HEENT Exam Head: Present: hematoma (left periorbital hematoma with soft tissue swelling; abrasion left zygoma). Absent: normocephalic Comments: trismus - Routine Respiratory Exam Present: decreased breath sounds - Routine Cardiovascular Exam Present: RRR, S1, S2 - Routine Abdominal Exam Present: soft, normoactive bowel sounds, non distended, non tender - Routine Extremities Exam Present: edema (3+ b/l). Absent: normal capillary refill (>3 sec.) Comments: both feet were cool to touch - Routine Skin Exam Present: dry, wounds (face) - Routine Neurological Exam Present: alert, oriented X3, normal speech - Routine Psychiatric Exam Present: normal affect, normal thought process, cooperative Results - Labs CBC & Chem 7: 06/14/17 04:22 06/14/17 04:22 Assessment and Plan (1) Dilated cardiomyopathy Problem details: EF 10-15% with 3/4 diastolic dysfunction on 06/11/17 EF 30% on TTE done 10/2015; global hypokinesis and dilated LV; EF 55% 09/2016 Current visit: No Status: Acute (2) COPD, severe Problem details: on 3L NC chronically at home Current visit: No Status: Chronic (3) Acute and chronic respiratory failure with hypoxia Problem details: Chronic secondary to COPD, acute likely a combination of COPD exacerbation and volume overload/systolic heart failure exacerbation Current visit: No Status: Acute Assessment and Plan: Assessment Acute on chronic CHF Volume overload Dilated cardiomyopathy Chronic hypercarbic/hypoxic respiratory failure Hypertension COPD Obstructive sleep apnea Diabetes mellitus, type II-diet controlled-A1C 6.1 05/01/17 Peripheral neuropathy Morbid obesity Depression/anxiety Fall versus syncope with head injury-06/12/17 Hypotension-06/13/15 Acute kidney injury Plan BP still hypotensive occasionally but improving from yesterday. Cont low-dose amlodipine and carvedilol. diuretics on hold and acetazolamide has been started for increasing CO2 levels. Encourage CPAP use. Na low but stable at 133. K 3.5 -- replaced orally. BUN up slightly to 41; creatinine decreased from 1.9 to 1.8. Will obtain maxillofacial CT for left mandibular pain and trismus. Discussed with Dr. Ramírez. DVT Prophylaxis: SCD's, Xarelto Resuscitation Status: Full Code - Physician Narrative Narrative: Date: 06/14/17 Time: 1620 I have independently evaluated and examined this patient. I reviewed the chart, the patient's history, and the SCHEDULE CHECKER/PA's documented findings as above. We discussed and formulated the assessment and plan as above with additions as below: Mr. Antonio was seated on the edge of the bed when seen midday. He reports that he wants to go home and heal there. He is having some discomfort with chewing and cannot fully open his mouth. Facial swelling has increased and he declines ice packs due to discomfort. He's been unable to wear CPAP due to facial pain. sBP ~100 today Respirations nonlabored, decreased breath sounds throughout, lung park clear, no wheezing appreciated Bowel wall edema in lower extremity edema unchanged; regular cardiac rhythm, life vest on Increased facial edema relative to yesterday over the left zygoma and cheek, increased edema left lip No lacerations of the tongue or lips appreciated Maxillofacial CT was very small minimally displaced fracture of the left inferior orbital ridge, subcutaneous emphysema present in the neck and left face and small amount of fluid in the left maxillary sinus. No evidence of muscle entrapment. Have been back to discuss CT findings with the patient twice but he has been sound asleep on both occasions. Will discuss with him further tomorrow and discuss with ophthalmology. Resumption of acetazolamide discussed with cardiology. Hospital Course Summary Disclaimer: The visit summary below is not to be considered part of the above Progress Note. Hospital Course: 06/09/17 Diuresis initiated overnight and will be continued with IV Lasix. Weight is up 17 kg in 5 weeks consistent with describe symptoms. Monitor electrolytes in the event supplemental potassium or magnesium becomes necessary. Continue supplemental oxygen. Resume metoprolol, lisinopril, and simvastatin as previously prescribed. Anticipate echocardiogram early next week. Continue Accu-Cheks, converted to diabetic diet with fluid restriction of 1800 mL per 24 hours. Albuterol/Atrovent treatments ordered 4 times daily and when necessary. Patient has requested lorazepam "that he takes at home" per nursing report which will require further clarification as this was neither prescribed at discharge nor reported by patient when I spoke with him. Sertraline was prescribed for his chronic anxiety/depressive disorder and will be resumed. 06/10/17 Currently on Lasix 60 mg IV every 6 hours without significant results. Will add one time dose of metolazone 5 mg by mouth now. Down 2.6 kilograms since admission. Echocardiogram early next week. Accu-Cheks ordered. Continue diabetic diet with fluid restriction of 1800 mL per 24 hours. Continue DuoNeb treatments. Add Pulmicort for wheezing. Add Neurontin for his neuropathic pain. Start at 300 mg daily and increase as tolerated. 06/11/17 Diamox 500mg po x 1 for CO2 retention. Currently on Lasix 60 mg IV every 6 hours. Had one time dose of metolazone 5 mg po yesterday with good results. Weight down almost 6 kilograms since admission. Tachycardic since last evening despite metoprolol 25 BID--> atrial flutter with variable block. Echocardiogram with severely reduced ejection fraction of approximate 10-15% and akinetic mid apical anterior, mid apical anteroseptal, and mid apical anterolateral wall. 3/4 diastolic dysfunction. Cardiology consulted for altered rhythm and cardiomyopathy-amiodarone and heparin drips initiated. Neurontin added yesterday for his neuropathic pain. Increase to TID. Consult OT/PT. Maintaining at home O2 at 3L; known diagnosis VALARIE, overnight oximetry tonight prior to trial of CPAP. 06/12/17 Patient hypotensive this afternoon corresponding to fall or syncopal event with facial injuries. For CT head and cervical spine; being placed in cervical collar at this time. Diuretics on hold, if blood pressure remains low small fluid bolus will be given. Carvedilol and lisinopril doses decreased by 50% pending stabilization of blood pressure. Discussed with Dr. Merchant after initial report of hypotension however it appeared to be artifactual at that time. Patient was on heparin earlier in the day; nursing reports heparin was off 30- 60 minutes prior to fall. Brief nasal bleeding reported immediately after fall. Successfully cardioverted to sinus rhythm earlier today-remains in sinus rhythm. Dr. Merchant has discussed Life Vest with patient in addition need for aggressive medical management due to severity of cardiac disease. Patient critically [id number] for complications of unstable blood pressure/ head injury. Overnight oximetry demonstrated moderate interference; oxygen saturation was < 89% for 10 minutes (patient was on 3 L oxygen by nasal cannula until 0230, 2 L from 0980-7738, then CPAP from 3490-7063. Lowest oxygen saturation reported was 79% and the longest desaturation was 57 seconds. [place] pattern evident on tracing. Patient did not tolerate standard face mask with CPAP last night-nasal mask to be tried tonight. 06/13/17 Patient remains mildly hypotensive this today; diuretics remain on hold. Gray received 500 mL fluid yesterday evening due to hypotension. Lisinopril and carvedilol dose is decreased. Due to severity of cardiomyopathy will need to resume medications as soon as blood pressure permits. Events of yesterday evening reviewed with cardiology; patient remains in sinus rhythm following cardioversion yesterday. Patient did not try CPAP last night due to facial injuries but is willing to try as tolerated today and tonight. Reminded to use CPAP both overnight and with daytime naps. Creatinine up today-1.9; BUN/creatinine were slightly elevated yesterday morning reflecting diuresis but worsened following hypertension yesterday. Repeat labs now. If creatinine climbing further will replace additional volume this evening. Patient remains at high risk for complications due to combined cardiomyopathy, nocturnal hypoxia, and hemodynamic instability. 06/14/17 BP still hypotensive occasionally but improving from yesterday. Cont low-dose amlodipine and carvedilol. diuretics on hold and acetazolamide has been started for increasing CO2 levels. Encourage CPAP use. Na low but stable at 133. K 3.5 -- replaced orally. BUN up slightly to 41; creatinine decreased from 1.9 to 1.8. Will obtain maxillofacial CT for left mandibular pain and trismus.
--- NOTE | 2017-06-14 16:34 | CT Scan Report ---
Indication: s/p fall PROCEDURE: CT maxillofacial wo contrast: Encounter: Initial Comparison: None Technique: Axial noncontrast CT images through the mid face were performed with coronal and sagittal two-dimensional reformats. Automated Exposure Control and Iterative Reconstruction dose reducing techniques were utilized. Findings: Diffuse subcutaneous emphysema seen in the upper neck and left facial region. There is a small of fluid in the left maxillary sinus. Periodontal disease seen in the maxillary and mandibular teeth. There is a fracture of the left inferior orbital floor. There is no definite CT evidence of extraocular muscle entrapment. The globes are intact. The lenses are located. No intraconal hematoma or inflammation. There is gas in the left orbit. No additional acute maxillofacial fractures seen. No focal fluid collection or focal hematoma. Impression: Mildly depressed left orbital floor fracture with extensive subcutaneous emphysema. .
[2017-06-14] MEDS: RIVAROXABAN 20 MG TABLET PO SCH (18:05)
[2017-06-14] MEDS: SIMVASTATIN 20 MG TABLET PO SCH (20:54)
[2017-06-15] MEDS: ALBUTEROL/IPRATROPIUM 2.5mg-0.5mg/3ml NEB AEROSOL PRN (02:08)
[2017-06-15] MEDS ORDERED: FALL RISK - PHARMACY CONSULT MC ONE (04:01)
[2017-06-15] MEDS: ALBUTEROL/IPRATROPIUM 2.5mg-0.5mg/3ml NEB AEROSOL SCH ×4 (06:47→20:34)
[2017-06-15] MEDS: BUDESONIDE INH.SOLN 0.5mg/2ml NEB AEROSOL SCH ×2 (06:47→20:34)
[2017-06-15] MEDS: SENNA + DOCUSATE TABLET PO SCH ×2 (08:32→20:18)
[2017-06-15] MEDS: AMIODARONE 200 MG TABLET PO SCH (08:33)
[2017-06-15] MEDS: acetaZOLAMIDE 250 MG TABLET PO SCH ×2 (08:33→20:18)
[2017-06-15] MEDS: CARVEDILOL 3.125 MG TABLET PO SCH ×2 (08:33→22:03)
[2017-06-15] MEDS: SERTRALINE 50 MG TABLET PO SCH (08:34)
[2017-06-15] MEDS: GABAPENTIN 300 MG CAPSULE PO SCH ×3 (08:34→20:18)
[2017-06-15] MEDS: HYDROCODONE/APAP 5mg/325mg TABLET PO PRN ×2 (08:42→14:40)
[2017-06-15] MEDS: LORazepam 0.5 MG TABLET PO PRN (08:43)
[2017-06-15] MEDS: LISINOPRIL 2.5 MG TABLET PO SCH (09:27)
--- NOTE | 2017-06-15 10:07 | Progress Note ---
- Date 06/15/17 Subjective: Gray was getting up for the morning, and preparing breakfast. Earlier, he was very somnolent and respiratory therapy during ABG. Now, however, he is doing much better and is staying awake and conversing fairly well. He had a very restless night, according to his son. He could not get comfortable and complained of facial pain. He is able to open his left eye a little bit more today, but it is still ecchymotic and swollen. He has increasing swelling to the entire left side of his face, especially left mandible and submandibular areas. He is able to eat and drink without much difficulty. He denies feeling short of breath at the moment. He is unable to tolerate CPAP because of facial trauma. Respiratory therapy also tried a nasal CPAP, but this was unsuccessful. He has not had any chest pain or palpitations. He denies any abdominal pain or nausea. Objective Vital signs: Temperature 97.6 F 06/15/17 08:14 Pulse Rate 99 06/15/17 08:14 Respiratory Rate 17 06/15/17 08:14 Blood Pressure 122/70 06/15/17 08:14 Pulse Oximetry 97 06/15/17 08:14 Height/Weight/BMI: Height 1.78 m Weight 136.8 kg Body Mass Index 44.4 - Constitutional Present: morbidly obese - Routine HEENT Exam Head: Present: hematoma (left periorbital hematoma), facial swelling (and subcutaneous emphysema left side of face and into submandibular area). Absent: atraumatic Eye: Present: scleral injection (left eye) ENT: Present: mucous membranes moist, oropharynx clear - Routine Respiratory Exam Present: decreased breath sounds - Routine Cardiovascular Exam Present: RRR, S1, S2 - Routine Abdominal Exam Present: normoactive bowel sounds, non tender Comments: obese - Routine Extremities Exam Present: edema (2+ BLE) - Routine Skin Exam Present: dry. Absent: warm (extremities are cool to touch) - Routine Neurological Exam Present: alert, oriented X3, moving all extremities, hearing grossly intact - Routine Psychiatric Exam Present: normal thought process Results - Labs CBC & Chem 7: 06/15/17 04:04 06/15/17 04:04 - ABG Interpretation ABG results: 06/15/17 09:19 ABG pH 7.337 L ABG pCO2 79 H* ABG pO2 65.6 L ABG HCO3 42.3 H ABG Total CO2 44.7 H ABG O2 Saturation 89.7 L ABG Base Excess 12.4 H Assessment and Plan (1) Dilated cardiomyopathy Problem details: EF 10-15% with 3/4 diastolic dysfunction on 06/11/17 EF 30% on TTE done 10/2015; global hypokinesis and dilated LV; EF 55% 09/2016 Current visit: No Status: Acute (2) COPD, severe Problem details: on 3L NC chronically at home Current visit: No Status: Chronic (3) Acute and chronic respiratory failure with hypoxia Problem details: Chronic secondary to COPD, acute likely a combination of COPD exacerbation and volume overload/systolic heart failure exacerbation Current visit: No Status: Acute Assessment and Plan: Assessment Acute on chronic CHF Volume overload Dilated cardiomyopathy with EF of 10-15% - Life Vest per cardiology Chronic hypercarbic/hypoxic respiratory failure Hypertension COPD Obstructive sleep apnea Diabetes mellitus, type II-diet controlled-A1C 6.1 05/01/17 Peripheral neuropathy Morbid obesity Depression/anxiety Fall versus syncope with head injury-06/12/17 Facial trauma due to fall Minimally depressed left orbital fracture sustained 06/12/17 Hypotension-06/13/15 Acute kidney injury - resolved Plan CO2 continues to climb despite starting acetazolamide yesterday. Today it is 47. He was more somnolent this morning and an ABG was obtained, showing a pH of 7.34, PCO2 79, PO2 65, and H2O3 of 42 on 3 L. He is unable to tolerate CPAP via mask or nasal cannula because of facial trauma. Dr. Rebolledo has been consulted to help manage his COPD and hypercarbic/hypoxic respiratory failure in the setting of facial trauma. Parisa Garcia APRN recommends to decrease oxygen for a goal saturation of 90%. Blood pressure currently stable though he was hypotensive late last evening at 87/64. Continue low-dose amlodipine and carvedilol, managed per cardiology. Anticoagulation d/w Caryl Salas APRN: likely will change to Coumadin because of cost of Xarelto. Sodium and potassium have both been corrected. Renal function is improving and diuretics remain on hold. BUN is 47 and creatinine is 1.3. Maxillofacial CT yesterday revealed a mildly depressed left orbital floor fracture with extensive subcutaneous emphysema (personally reviewed). He is able to slightly open his eye today. Discussed with Dr. Ramírez, consultants, and nursing staff. DVT Prophylaxis: Xarelto Resuscitation Status: Full Code - Time spent with patient Time with patient PN: 35 minutes Coordination of Care: >50% of visit spent providing counseling/coordination of care - Physician Narrative Physician: Melissa Ramírez MD Narrative: Date: 06/15/17 Time: 1904 I have independently evaluated and examined this patient. I reviewed the chart, the patient's history, and the EXTERNAL GRINDER TOOL/PA's documented findings as above. We discussed and formulated the assessment and plan as above with additions as below: Mr. Antonio was seen with his son this morning due to concerns of excess somnolence. After ABG was drawn the patient was awake and responded reasonably well. He reports dyspnea is improved and denied palpitations. He reported minor double vision but cannot open his left eye enough to fully assess vision. Respiratory therapy reports multiple masks been tried and patient has not tolerated any of them well. Drowsy but responds appropriately; decreased left periorbital soft tissue swelling compared to prior 2 days With left upper eyelid elevated EOMIs are intact and patient has full lateral movement to the right and left Diminished breath sounds throughout but no wheezing appreciated Blood gas reviewed-chronic hypercarbia, slightly worse than last blood gas Discussed with pulmonary-lorazepam discontinued. Lengthy discussion with the patient and his son regarding severity of the patient's underlying cardiac and respiratory disease and need for more aggressive treatment due to patient's risk of . Nursing concerned that patient/son have been turning off the patient alarm- sensitivity cannot be reduced any further. Continue Diamox for hypercarbia; cardiac medications to be continued at low doses and titrated upward as blood pressure and clinical status permits Continue LifeVest. Renal function is improving progressively, if blood pressure stable tomorrow will resume loop diuretic. Results maxillofacial CT discussed with ophthalmology who indicated surgical intervention not indicated unless there is clear impairment in visual function or eye-movement. Reassess when patient able to open eye more fully. Hospital Course Summary Disclaimer: The visit summary below is not to be considered part of the above Progress Note. Hospital Course: 06/09/17 Diuresis initiated overnight and will be continued with IV Lasix. Weight is up 17 kg in 5 weeks consistent with describe symptoms. Monitor electrolytes in the event supplemental potassium or magnesium becomes necessary. Continue supplemental oxygen. Resume metoprolol, lisinopril, and simvastatin as previously prescribed. Anticipate echocardiogram early next week. Continue Accu-Cheks, converted to diabetic diet with fluid restriction of 1800 mL per 24 hours. Albuterol/Atrovent treatments ordered 4 times daily and when necessary. Patient has requested lorazepam "that he takes at home" per nursing report which will require further clarification as this was neither prescribed at discharge nor reported by patient when I spoke with him. Sertraline was prescribed for his chronic anxiety/depressive disorder and will be resumed. 06/10/17 Currently on Lasix 60 mg IV every 6 hours without significant results. Will add one time dose of metolazone 5 mg by mouth now. Down 2.6 kilograms since admission. Echocardiogram early next week. Accu-Cheks ordered. Continue diabetic diet with fluid restriction of 1800 mL per 24 hours. Continue DuoNeb treatments. Add Pulmicort for wheezing. Add Neurontin for his neuropathic pain. Start at 300 mg daily and increase as tolerated. 06/11/17 Diamox 500mg po x 1 for CO2 retention. Currently on Lasix 60 mg IV every 6 hours. Had one time dose of metolazone 5 mg po yesterday with good results. Weight down almost 6 kilograms since admission. Tachycardic since last evening despite metoprolol 25 BID--> atrial flutter with variable block. Echocardiogram with severely reduced ejection fraction of approximate 10-15% and akinetic mid apical anterior, mid apical anteroseptal, and mid apical anterolateral wall. 3/4 diastolic dysfunction. Cardiology consulted for altered rhythm and cardiomyopathy-amiodarone and heparin drips initiated. Neurontin added yesterday for his neuropathic pain. Increase to TID. Consult OT/PT. Maintaining at home O2 at 3L; known diagnosis VALARIE, overnight oximetry tonight prior to trial of CPAP. 06/12/17 Patient hypotensive this afternoon corresponding to fall or syncopal event with facial injuries. For CT head and cervical spine; being placed in cervical collar at this time. Diuretics on hold, if blood pressure remains low small fluid bolus will be given. Carvedilol and lisinopril doses decreased by 50% pending stabilization of blood pressure. Discussed with Dr. Merchant after initial report of hypotension however it appeared to be artifactual at that time. Patient was on heparin earlier in the day; nursing reports heparin was off 30- 60 minutes prior to fall. Brief nasal bleeding reported immediately after fall. Successfully cardioverted to sinus rhythm earlier today-remains in sinus rhythm. Dr. Merchant has discussed Life Vest with patient in addition need for aggressive medical management due to severity of cardiac disease. Patient critically [id number] for complications of unstable blood pressure/ head injury. Overnight oximetry demonstrated moderate interference; oxygen saturation was < 89% for 10 minutes (patient was on 3 L oxygen by nasal cannula until 0230, 2 L from [id number], then CPAP from 1198-5495. Lowest oxygen saturation reported was 79% and the longest desaturation was 57 seconds. [place] pattern evident on tracing. Patient did not tolerate standard face mask with CPAP last night-nasal mask to be tried tonight. 06/13/17 Patient remains mildly hypotensive this today; diuretics remain on hold. Gray received 500 mL fluid yesterday evening due to hypotension. Lisinopril and carvedilol dose is decreased. Due to severity of cardiomyopathy will need to resume medications as soon as blood pressure permits. Events of yesterday evening reviewed with cardiology; patient remains in sinus rhythm following cardioversion yesterday. Patient did not try CPAP last night due to facial injuries but is willing to try as tolerated today and tonight. Reminded to use CPAP both overnight and with daytime naps. Creatinine up today-1.9; BUN/creatinine were slightly elevated yesterday morning reflecting diuresis but worsened following hypertension yesterday. Repeat labs now. If creatinine climbing further will replace additional volume this evening. Patient remains at high risk for complications due to combined cardiomyopathy, nocturnal hypoxia, and hemodynamic instability. 06/14/17 BP still hypotensive occasionally but improving from yesterday. Cont low-dose amlodipine and carvedilol. diuretics on hold and acetazolamide has been started for increasing CO2 levels. Encourage CPAP use. Na low but stable at 133. K 3.5 -- replaced orally. BUN up slightly to 41; creatinine decreased from 1.9 to 1.8. Will obtain maxillofacial CT for left mandibular pain and trismus. 06/15/17 CO2 continues to climb despite starting acetazolamide yesterday. Today it is 47. He was more somnolent this morning and an ABG was obtained, showing a pH of 7.34, PCO2 79, PO2 65, and H2O3 of 42 on 3 L. He is unable to tolerate CPAP via mask or nasal cannula because of facial trauma. Dr. Rebolledo has been consulted to help manage his COPD and hypercarbic/hypoxic respiratory failure in the setting of facial trauma. Parisa Garcia APRN recommends to decrease oxygen for a goal saturation of 90%. Blood pressure currently stable though he was hypotensive late last evening at 87/64. Continue low-dose amlodipine and carvedilol, managed per cardiology. Anticoagulation d/w Caryl Salas APRN: likely will change to Coumadin because of cost of Xarelto. Sodium and potassium have both been corrected. Renal function is improving and diuretics remain on hold. BUN is 47 and creatinine is 1.3. Maxillofacial CT yesterday revealed a mildly depressed left orbital floor fracture with extensive subcutaneous emphysema. He is able to slightly open his eye today.
--- NOTE | 2017-06-15 10:36 | Pulmonology Consult Note ---
<Parisa Johnson Keturah - Last Filed: 06/15/17 10:18> History of Present Illness Consult date: 06/15/17 Requesting physician: Melissa Ramírez Reason for consult: COPD, obstructive sleep apnea Chief complaint: SOB History of present illness: This is a 52 yo male with a Hx of Systolic HF EF 10-15% (previously 25-30%), VALARIE and COPD. Apparently he is noncompliant with his medications as he can't afford them, still smoking 1/2 ppd, previously with Cpap but states it was discontinued due to no insurance. Was recently discharged from [facility] about 3 weeks ago for CHF exacerbation. Per report he was taking his diuretics as prescribed but none of his other medications, was noticed to have increasing SOB a few days prior to admit. Unfortunately his SOB worsened to distress and EMS was contacted and he was brought to the [facility] ER. He does use oxygen at 2-3L O2 per NC at home. CXR on admit showed cardiomegaly and congestion with bilateral LE edema. Labs unremarkable on admit. We have been consulted for his COPD and VALARIE. He was thought to be lethargic this am, ABG today was 7.33/79/65 on 3L per [place]. Has been unable to tolerate bipap here secondary to a L facial fx he sustained her in the hospital. We have been consulted for his Hypercapnic Failure and COPD. Review of Systems - Constitutional Constitutional: Present: fatigue, weight gain - EENT Eyes: Absent: blurry vision, change in vision Nose: Absent: change in smell, pain Mouth/Throat: Present: mucosa moist - Cardiovascular Cardiovascular: Present: dyspnea on exertion, edema. Absent: chest pain, palpitations - Respiratory Respiratory: Present: dyspnea, dyspnea on exertion. Absent: hemoptysis - Gastrointestinal Gastrointestinal: Absent: abdominal pain, change in bowel habits - Musculoskeletal Musculoskeletal: Absent: abnormal gait, arthralgias, atrophy - Neurological Neurological: Absent: abnormal gait, abnormal movements, abnormal speech - Psychiatric Psychiatric: Present: anxiety. Absent: abnormal sleep pattern, anhedonia - Hematologic/Lymphatic Hematologic/Lymphatic: Absent: easy bleeding, easy bruising - Allergic/Immunologic Allergic/Immunologic: Absent: tongue swelling, throat swelling PFSH Patient Stated Medical History Congestive Heart Failure Yes Hypertension Yes Asthma Yes Chronic Obstructive Pulmonary Yes Disease (COPD) Pneumonia Yes Sleep Apnea Yes Diabetes Mellitus Type 2 Yes Osteoarthritis Yes MRSA Yes Depression Yes: manic Clinic Medical History (Last Updated 06/09/17 @ 05:21 by Manny Stout MD) CHF (congestive heart failure) (Acute Medical) Coronary artery disease (Acute Medical) Sleep apnea (Acute Medical) Surgical History: Heart catheterization-2015- Patent coronaries. Right Shoulder arthroscopy. cholecystectomy Family History Updates: father of HTN and etoh - Social History Smoking status: Current every day smoker Substance use type: does not use Alcohol intake frequency: does not drink Housing: house Household members: children Current occupational status: disabled Current residence: Apartment/Private Home Medications Home Medications Medication Instructions Recorded Confirmed Type Acetaminophen [Tylenol] 325 - 650 mg PO Q5H PRN tab 05/03/17 06/09/17 Rx Furosemide [Lasix 20 mg Tab] 1 tab PO DAILY #30 tab 05/03/17 06/09/17 Rx Furosemide [Lasix 40 mg Tab] 1 tab PO BID #30 tab 05/03/17 06/09/17 Rx Lisinopril [Prinivil] 20 mg PO DAILY #30 tab 05/03/17 06/09/17 Rx Metoprolol Tartrate [Lopressor] 25 mg PO BIDWM #60 tab 05/03/17 06/09/17 Rx Potassium 99 mg PO BID #30 tab 05/03/17 06/09/17 Rx PredniSONE [Deltasone 20 mg] 40 mg PO WB #2 tab 05/03/17 06/09/17 Rx Sertraline [Zoloft] 50 mg PO DAILY #30 tab 05/03/17 06/09/17 Rx Simvastatin [Zocor] 20 mg PO HS #30 tab 05/03/17 06/09/17 Rx Allergies Allergy/AdvReac Type Severity Reaction Status Date / Time No Known Drug Allergies Allergy Unknown Verified 06/09/17 02:20 Exam Vital signs: Temperature 97.6 F 06/15/17 08:14 Pulse Rate 99 06/15/17 08:14 Respiratory Rate 17 06/15/17 08:14 Blood Pressure 122/70 06/15/17 08:14 Pulse Oximetry 97 06/15/17 08:14 - Constitutional no acute distress, obese - Routine HEENT Exam Head: Present: normocephalic, atraumatic Eye: Present: EOMI, periorbital swelling, periorbital tenderness ENT: Present: mucous membranes moist Nose: moist mucous membranes - Routine Neck Exam Present: supple, full ROM, trachea midline - Routine Respiratory Exam Present: decreased breath sounds. Absent: accessory muscle use, patient mechanically ventilated - Routine Cardiovascular Exam Present: RRR, S1, S2, no murmur - Routine Abdominal Exam Present: soft, normoactive bowel sounds - Routine Extremities Exam Present: edema, non tender, full ROM. Absent: cyanosis, clubbing - Routine Back/Spine/Pelvis Exam Back/Spine: Absent: full ROM - Routine Skin Exam Present: intact, dry. Absent: cyanosis, erythema - Routine Neurological Exam Present: alert, oriented X3, CN II-XII intact, moving all extremities appears tired but wakes and answers questions - Routine Psychiatric Exam Present: normal affect Results - Laboratory Findings CBC and BMP: 06/15/17 04:04 06/15/17 04:04 ABG ABG pH 7.337 (7.350-7.450) L 06/15/17 09:19 ABG pCO2 79 MMHG (34.0-45.0) H* 06/15/17 09:19 ABG pO2 65.6 MMHG (80.0-100.0) L 06/15/17 09:19 ABG O2 Saturation 89.7 % (95.0-98.0) L 06/15/17 09:19 PT/INR, D-dimer INR 1.15 (0.92-1.18) 06/11/17 14:57 Abnormal lab findings: Abnormal Labs 06/10/17 06/10/17 06/11/17 05:05 05:05 03:48 WBC 11.6 H RBC 4.38 L Hgb 11.8 L Hct 39.9 L MCV MCHC 29.6 L RDW Std Deviation 54.6 H Neut % (Auto) 77.7 H Lymph % (Auto) 12.3 L [place] % (Auto) 9.2 H Neut # (Auto) 9.0 H [place] # (Auto) 1.1 H APTT ABG pH ABG pCO2 ABG pO2 ABG HCO3 ABG Total CO2 ABG O2 Saturation ABG Base Excess Sodium Potassium Chloride 88 L D 85 L Carbon Dioxide 44 H* 44 H* BUN 29.0 H D Creatinine BUN/Creatinine Ratio Glucose 121 H Calcium Specimen Hemolysis 06/12/17 06/12/17 06/12/17 00:19 03:32 07:59 WBC RBC Hgb Hct MCV MCHC RDW Std Deviation Neut % (Auto) Lymph % (Auto) [place] % (Auto) Neut # (Auto) [place] # (Auto) APTT 58.4 H 85.3 H ABG pH ABG pCO2 ABG pO2 ABG HCO3 ABG Total CO2 ABG O2 Saturation ABG Base Excess Sodium Potassium 3.4 L Chloride 82 L Carbon Dioxide 44 H* BUN 32.0 H Creatinine BUN/Creatinine Ratio Glucose Calcium Specimen Hemolysis 06/13/17 06/13/17 06/14/17 04:31 19:09 04:22 WBC RBC Hgb 12.4 L Hct MCV 9034.0 H MCHC 30.0 L RDW Std Deviation 55.7 H Neut % (Auto) 75.9 H Lymph % (Auto) 13.5 L [place] % (Auto) 9.8 H Neut # (Auto) [place] # (Auto) 1.0 H APTT ABG pH ABG pCO2 ABG pO2 ABG HCO3 ABG Total CO2 ABG O2 Saturation ABG Base Excess Sodium 133 L Potassium Chloride 80 L 78 L Carbon Dioxide 43 H* 43 H* BUN 45.0 H 48.0 H Creatinine 1.9 H D 1.9 H BUN/Creatinine Ratio Glucose 120 H 130 H Calcium Specimen Hemolysis 06/14/17 06/15/17 06/15/17 04:22 04:04 04:04 WBC RBC Hgb 13.1 L Hct MCV MCHC 29.6 L RDW Std Deviation 54.6 H Neut % (Auto) 77.1 H Lymph % (Auto) 12.9 L [place] % (Auto) Neut # (Auto) [place] # (Auto) APTT ABG pH ABG pCO2 ABG pO2 ABG HCO3 ABG Total CO2 ABG O2 Saturation ABG Base Excess Sodium 133 L Potassium 3.5 L Chloride 77 L 79 L Carbon Dioxide 46 H* 47 H* BUN 51.0 H* 47.0 H Creatinine 1.8 H BUN/Creatinine Ratio 28 H 36 H Glucose 117 H 126 H Calcium 8.3 L Specimen Hemolysis 33 H 238 H 06/15/17 09:19 WBC RBC Hgb Hct MCV MCHC RDW Std Deviation Neut % (Auto) Lymph % (Auto) [place] % (Auto) Neut # (Auto) [place] # (Auto) APTT ABG pH 7.337 L ABG pCO2 79 H* ABG pO2 65.6 L ABG HCO3 42.3 H ABG Total CO2 44.7 H ABG O2 Saturation 89.7 L ABG Base Excess 12.4 H Sodium Potassium Chloride Carbon Dioxide BUN Creatinine BUN/Creatinine Ratio Glucose Calcium Specimen Hemolysis - Diagnostic Findings Chest x-ray: image reviewed (CXR per HPI) Assessment and Plan - Assessment and Plan Chronic Hypoxic Respiratory Failure, likely with chronic Hypercapnic Failure COPD, unknown severity, no meds at home Systolic EF/Non ischemic Dilated cardiomyopathy - EF 10-15% - life vest atrial fibrillation MARGI - likely 2/2 diuresis Plan: Pt currently on O2 at 3L per [place], sats 97-98%, has been unable to megan bipap (f12 , 12/14) secondary to L orbital fx. ABG 7.33/, will try to decrease O2 to keep sats 90-93% as he has been unable to tolerate bipap. Would hold ativan as he is given this along with pain medication to assist in bipap usage but realistically only making his hypercapnic failure worse. Will stop ativan and try xanax for anxiety instead. Continue on Bt's with pulmicort BID and A/A QID, on diamox and off lasix, cont fld restriction, Cr improved 1.8>1.3 today. Follow closely. Now with medicare in place, would benefit from an inhaled regimen OP along with PFT. - Time Spent With Patient Total time spent is greater than 50% in coordination of care (as documented) at patient's floor/unit and/or counseling patient: 25 - 35 minutes <Jorden Rebolledo - Last Filed: 06/16/17 11:55> History of Present Illness History of present illness: Spoke with son. States patient is very depressed quit smoking 2 weeks ago. Uses O2 at home Cannot afford medicines [facility] Patient Stated Medical History Congestive Heart Failure Yes Hypertension Yes Asthma Yes Chronic Obstructive Pulmonary Yes Disease (COPD) Pneumonia Yes Sleep Apnea Yes Diabetes Mellitus Type 2 Yes Osteoarthritis Yes MRSA Yes Depression Yes: manic Clinic Medical History (Last Updated 06/09/17 @ 05:21 by Manny Stout MD) CHF (congestive heart failure) (Acute Medical) Coronary artery disease (Acute Medical) Sleep apnea (Acute Medical) Exam Vital signs: Temperature 97.6 F 06/16/17 04:40 Pulse Rate 82 06/16/17 04:40 Respiratory Rate 13 06/16/17 11:37 Blood Pressure 120/83 06/16/17 04:40 Pulse Oximetry 97 06/16/17 11:37 - Routine Respiratory Exam Absent: wheezes Comments: currently on bipap 12/5 rate 12. Minute ventilation 4-6 lpm Results - Laboratory Findings CBC and BMP: 06/15/17 04:04 06/16/17 05:28 ABG ABG pH 7.337 (7.350-7.450) L 06/15/17 09:19 ABG pCO2 79 MMHG (34.0-45.0) H* 06/15/17 09:19 ABG pO2 65.6 MMHG (80.0-100.0) L 06/15/17 09:19 ABG O2 Saturation 89.7 % (95.0-98.0) L 06/15/17 09:19 PT/INR, D-dimer INR 1.15 (0.92-1.18) 06/11/17 14:57 Abnormal lab findings: Abnormal Labs 06/10/17 06/10/17 06/11/17 05:05 05:05 03:48 WBC 11.6 H RBC 4.38 L Hgb 11.8 L Hct 39.9 L MCV MCHC 29.6 L RDW Std Deviation 54.6 H Neut % (Auto) 77.7 H Lymph % (Auto) 12.3 L [place] % (Auto) 9.2 H Neut # (Auto) 9.0 H [place] # (Auto) 1.1 H APTT ABG pH ABG pCO2 ABG pO2 ABG HCO3 ABG Total CO2 ABG O2 Saturation ABG Base Excess Sodium Potassium Chloride 88 L D 85 L Carbon Dioxide 44 H* 44 H* BUN 29.0 H D Creatinine BUN/Creatinine Ratio Glucose 121 H Calcium Specimen Hemolysis 06/12/17 06/12/17 06/12/17 00:19 03:32 07:59 WBC RBC Hgb Hct MCV MCHC RDW Std Deviation Neut % (Auto) Lymph % (Auto) [place] % (Auto) Neut # (Auto) [place] # (Auto) APTT 58.4 H 85.3 H ABG pH ABG pCO2 ABG pO2 ABG HCO3 ABG Total CO2 ABG O2 Saturation ABG Base Excess Sodium Potassium 3.4 L Chloride 82 L Carbon Dioxide 44 H* BUN 32.0 H Creatinine BUN/Creatinine Ratio Glucose Calcium Specimen Hemolysis 06/13/17 06/13/17 06/14/17 04:31 19:09 04:22 WBC RBC Hgb 12.4 L Hct MCV 9034.0 H MCHC 30.0 L RDW Std Deviation 55.7 H Neut % (Auto) 75.9 H Lymph % (Auto) 13.5 L [place] % (Auto) 9.8 H Neut # (Auto) [place] # (Auto) 1.0 H APTT ABG pH ABG pCO2 ABG pO2 ABG HCO3 ABG Total CO2 ABG O2 Saturation ABG Base Excess Sodium 133 L Potassium Chloride 80 L 78 L Carbon Dioxide 43 H* 43 H* BUN 45.0 H 48.0 H Creatinine 1.9 H D 1.9 H BUN/Creatinine Ratio Glucose 120 H 130 H Calcium Specimen Hemolysis 06/14/17 06/15/17 06/15/17 04:22 04:04 04:04 WBC RBC Hgb 13.1 L Hct MCV MCHC 29.6 L RDW Std Deviation 54.6 H Neut % (Auto) 77.1 H Lymph % (Auto) 12.9 L [place] % (Auto) Neut # (Auto) [place] # (Auto) APTT ABG pH ABG pCO2 ABG pO2 ABG HCO3 ABG Total CO2 ABG O2 Saturation ABG Base Excess Sodium 133 L Potassium 3.5 L Chloride 77 L 79 L Carbon Dioxide 46 H* 47 H* BUN 51.0 H* 47.0 H Creatinine 1.8 H BUN/Creatinine Ratio 28 H 36 H Glucose 117 H 126 H Calcium 8.3 L Specimen Hemolysis 33 H 238 H 06/15/17 06/16/17 09:19 05:28 WBC RBC Hgb Hct MCV MCHC RDW Std Deviation Neut % (Auto) Lymph % (Auto) [place] % (Auto) Neut # (Auto) [place] # (Auto) APTT ABG pH 7.337 L ABG pCO2 79 H* ABG pO2 65.6 L ABG HCO3 42.3 H ABG Total CO2 44.7 H ABG O2 Saturation 89.7 L ABG Base Excess 12.4 H Sodium Potassium Chloride 85 L D Carbon Dioxide 47 H* BUN 35.0 H Creatinine BUN/Creatinine Ratio 27 H Glucose 112 H Calcium Specimen Hemolysis - Diagnostic Findings Chest x-ray: report reviewed, image reviewed (CXR shows left basilar atelectasis ) Assessment and Plan (1) Acute and chronic respiratory failure with hypercapnia Status: Acute Assessment and plan: CXR shows LLL atelectasis. Recommend IS, neb treatments. Using BIPAP with some benefit at this point. repeat CXR. Current Visit: Yes (2) Dilated cardiomyopathy Problem details: EF 10-15% with 3/4 diastolic dysfunction on 06/11/17 EF 30% on TTE done 10/2015; global hypokinesis and dilated LV; EF 55% 09/2016 Status: Acute Assessment and plan: LVEF 10-15%. On Coreg, MANI-, Xarelto, Amiodarone, Diuretics. Not showing signs of decompensated heart failure at this time. Current Visit: No (3) COPD exacerbation Status: Acute Assessment and plan: on O2 to keep sat >90% Tolerating BIPAP via full facemask IPAP 10, EPAP 5, Rate 12. Agree with nebulized budesonide 0.5 mg BID, albuterol/iprat QID Hold systemic corticosteroids at this point Current Visit: No - Time Spent With Patient Total time spent is greater than 50% in coordination of care (as documented) at patient's floor/unit and/or counseling patient:
[2017-06-15] MEDS: ALPRAZolam 0.5 MG TABLET PO PRN (14:40)
--- NOTE | 2017-06-15 15:08 | Cardiology Progress Note ---
<Caryl Salas - Last Filed: 06/18/17 13:02> Subjective Principal diagnosis: Severe Non-ischemic Dialated CM, Atrial fibrillation Interval history: Gray is seen in follow up for NI dilated CM, A Fib. He is seen in his room on Medical, he was moved closer to the nurses station due to getting up without assistance. He is currently wearing 3L/NC, refuses Bi-Pap due to facial trauma from last fall. He denies chest pain or pressure, palpitations or dizziness. Exam Vital signs: Temperature 97.6 F 06/15/17 08:14 Pulse Rate 99 06/15/17 08:14 Respiratory Rate 22 06/15/17 10:29 Blood Pressure 122/70 06/15/17 08:14 Pulse Oximetry 90 06/15/17 10:32 Inpatient Medications: Generic Name Dose Route Start Last Admin Trade Name Freq PRN Reason Stop Dose Admin Acetaminophen 650 mg 06/10/17 14:38 06/13/17 00:13 Tylenol PO 650 mg Q5H PRN Administration Discomfort Hydrocodone Bitart/Acetaminophen 1 - 2 tab 06/12/17 19:34 06/15/17 14:40 [facility] 5/325 PO 2 tab Q4H PRN Administration Pain Acetazolamide 250 mg 06/14/17 10:16 06/15/17 08:33 Diamox PO 250 mg BID RICHARD Administration Albuterol/Ipratropium 3 ml 06/09/17 11:00 06/15/17 10:29 Duoneb AEROSOL 3 ml RTQID RICHARD Administration Albuterol/Ipratropium 3 ml 06/09/17 10:34 06/15/17 02:08 Duoneb AEROSOL 3 ml QID PRN Administration Shortness of air/wheezing Alprazolam 0.5 mg 06/15/17 10:52 06/15/17 14:40 Xanax PO 0.5 mg TID PRN Administration Anxiety Amiodarone HCl 200 mg 06/12/17 16:45 06/15/17 08:33 Pacerone PO 200 mg DAILY RICHARD Administration Artificial Tears 1 drop 06/14/17 14:17 Refresh Classic EACH EYE QID PRN Budesonide 0.5 mg 06/10/17 19:00 06/15/17 06:47 Pulmicort Inhalation AEROSOL 0.5 mg RTBID RICHARD Administration Carvedilol 3.125 mg 06/12/17 17:47 06/15/17 08:33 Coreg PO 3.125 mg BIDWM RICHARD Administration Furosemide 80 mg 06/14/17 09:00 Lasix 80 Mg Tab PO DAILY RICHARD Gabapentin 300 mg 06/11/17 09:58 06/15/17 14:40 Neurontin PO 300 mg TID RICHARD Administration Lisinopril 2.5 mg 06/13/17 09:00 06/15/17 09:27 Prinivil PO 2.5 mg DAILY RICHARD Administration Metoclopramide HCl 5 mg 06/09/17 03:33 Reglan IVP Q6H PRN Rivaroxaban 20 mg 06/13/17 17:30 06/14/17 18:05 Xarelto PO 20 mg WS RICHARD Administration Senna/Docusate Sodium 2 tab 06/10/17 21:00 06/15/17 08:32 Senna Plus Tablet PO 2 tab BID RICHARD Administration Sertraline HCl 50 mg 06/10/17 09:00 06/15/17 08:34 Zoloft PO 50 mg DAILY RICHARD Administration Simvastatin 20 mg 06/09/17 21:00 06/14/17 20:54 Zocor PO 20 mg HS RICHARD Administration Sodium Chloride 10 - 80 ml 06/09/17 02:14 06/14/17 06:14 Iv Flush IVF 10 ml PRN PRN Administration Flushing Discontinued Medications Generic Name Dose Route Start Last Admin Trade Name Freq PRN Reason Stop Dose Admin Hydrocodone Bitart/Acetaminophen 1 tab 06/09/17 03:33 06/12/17 11:52 [facility] 5/325 PO 1 tab Q6H PRN Administration Pain Acetazolamide 500 mg 06/11/17 09:59 06/11/17 11:18 Diamox PO 06/11/17 10:00 500 mg O ONE Administration Acetazolamide Sodium 250 mg 06/12/17 16:45 06/12/17 19:32 Diamox Inj IV Not Given DAILY RICHARD Albuterol Sulfate 7.5 mg 06/09/17 02:35 06/09/17 02:47 Proventil Neb (0.083%) AEROSOL 06/09/17 02:36 7.5 mg O ONE Administration Albuterol/Ipratropium 3 ml 06/09/17 02:14 06/09/17 02:28 Duoneb IH 06/09/17 02:15 3 ml ONCE ONE Administration Carvedilol 6.25 mg 06/12/17 17:30 06/12/17 18:17 Coreg PO Not Given BIDWM RICHARD Furosemide 80 mg 06/09/17 02:34 06/09/17 02:38 Lasix 100 Mg/10 Ml IVP 06/09/17 02:35 80 mg O ONE Administration Furosemide 60 mg 06/09/17 09:00 06/12/17 16:58 Lasix 40 Mg/4 Ml IVP Not Given Q6HR RICHARD Furosemide 80 mg 06/12/17 17:00 06/12/17 18:16 Lasix 80 Mg Tab PO Not Given 0900,1700 RICHARD Gabapentin 300 mg 06/10/17 21:00 06/10/17 21:41 Neurontin PO 300 mg HS RICHARD Administration Heparin Sodium (Beef Lung) 8,000 unit 06/11/17 15:30 06/11/17 16:12 Heparin Bolus IV 06/11/17 15:31 8,000 unit O ONE Administration Heparin Sodium (Porcine) 1 each 06/11/17 14:29 Pharmacy Consult - Heparin 06/11/17 14:30 ONE TIME ONE Amiodarone HCl 900 mg/ Sodium 500 mls @ 16.66 mls/hr 06/11/17 14:30 06/12/17 16:58 Chloride IV Infused .Q24H RICHARD Infusion 0.5 MG/MIN Amiodarone HCl 450 mg/ Sodium 250 mls @ 33.33 mls/hr 06/11/17 14:30 06/12/17 00:18 Chloride IV 06/11/17 20:30 Infused .[id number] RICHARD Infusion 1 MG/MIN Amiodarone HCl 150 mg/ Sodium 103 mls @ 618 mls/hr 06/11/17 14:29 06/11/17 15 :40 Chloride IV 06/11/17 14:38 Infused O ONE Infusion Heparin Sodium (Porcine) 20,000 unit in 500 mls @ 33 mls/hr 06/11/17 15:30 16:57 Heparin Drip IV Infused .[id number] RICHARD Titration Protocol Sodium Chloride 500 mls @ 250 mls/hr 06/12/17 19:45 06/12/17 21:50 Normal Saline IV 06/12/17 20:44 Infused .Q2H RICHARD Infusion Lisinopril 20 mg 06/09/17 10:45 06/12/17 11:43 Prinivil PO 20 mg DAILY RICHARD Administration Lisinopril 5 mg 06/12/17 17:30 06/12/17 18:17 Prinivil PO Not Given DAILY RICHARD Lorazepam 1 mg 06/09/17 17:15 06/11/17 20:59 Ativan PO 1 mg TID PRN Administration Anxiety Lorazepam 0.5 mg 06/13/17 17:39 06/15/17 08:43 Ativan PO 0.5 mg TID PRN Administration Anxiety Methylprednisolone Sodium Succinate 125 mg 06/09/17 02:14 06/09/17 02:34 Solu-Medrol IVP 06/09/17 02:15 125 mg O ONE Administration Methylprednisolone Sodium Succinate 40 mg 06/09/17 09:00 06/09/17 09:04 Solu-Medrol IM Not Given Q6HR RICHARD Metolazone 5 mg 06/10/17 14:56 06/10/17 15:20 Zaroxolyn PO 06/10/17 14:57 5 mg O ONE Administration Metoprolol Tartrate 25 mg 06/09/17 17:30 06/12/17 11:42 Lopressor PO 25 mg BIDWM RICHARD Administration Pharmacy Consult each 06/15/17 04:01 Pharmacy Consult - Fall Risk 06/15/17 04:02 ONE TIME ONE Potassium Chloride 20 meq 06/14/17 14:39 06/14/17 14:58 K-Dur 20 Meq Tablet PO 06/14/17 14:40 20 meq O ONE Administration Senna/Docusate Sodium 1 tab 06/09/17 03:33 Senna Plus Tablet PO BID PRN Constipation - Constitutional no acute distress, morbidly obese, cooperative - Routine HEENT Exam Head: Present: normocephalic Eye: Present: periorbital ecchymosis, periorbital swelling, periorbital tenderness ENT: Present: mucous membranes moist - Routine Neck Exam Absent: JVD, carotid bruit - Routine Chest/Breast/Axilla Exam Chest wall: Absent: tenderness - Routine Respiratory Exam Present: decreased breath sounds, CTA bilaterally. Absent: rales, wheezes - Routine Cardiovascular Exam Present: RRR, no murmur - Routine Abdominal Exam Present: soft, normoactive bowel sounds - Routine Extremities Exam Present: edema - Routine Skin Exam Present: intact, dry, warm, ecchymosis (left eye) - Routine Neurological Exam Present: alert, oriented X3 - Routine Psychiatric Exam Present: normal affect, normal thought process Results 06/18/17 05:16 06/18/17 05:16 CBC 06/15/17 Range/Units 04:04 WBC 8.6 (4.5-11.0) T/MM3 RBC 4.90 (4.50-5.90) M/MM3 Hgb 13.1 L (13.5-17.5) GM/DL Hct 44.2 (41-53) % Plt Count 162 (130-400) T/MM3 Neut # (Auto) 6.6 (1.8-7.7) T/MM3 Lymph # (Auto) 1.1 (1-4.8) T/MM3 Sampson # (Auto) 0.7 (0-0.8) T/MM3 Eos # (Auto) 0.2 (0-0.5) T/MM3 Baso # (Auto) 0.0 (0-0.2) T/MM3 Comprehensive Metabolic Panel 06/15/17 Range/Units 04:04 Sodium 134 (134-144) MEQ/L Potassium 4.5 D (3.6-5) MEQ/L Chloride 79 L (98-107) MEQ/L Carbon Dioxide 47 H* (22-30) MEQ/L BUN 47.0 H (9-20) MG/DL Creatinine 1.3 D (0.8-1.5) mg/dL Glucose 126 H (75-110) MG/DL Calcium 8.7 (8.4-10.2) MG/DL Intake and Output 06/15/17 06/15/17 06/15/17 06:59 14:59 22:59 Intake Total 425 / 425 240 / 240 Output Total 1075 / 1075 450 / 450 Balance -650 / -650 -210 / -210 Intake: Oral 425 / 425 240 / 240 Output: Urine 1075 / 1075 450 / 450 Other: Urine Appearance Clear Clear Urine Color Yellow Dark Yellow Urine Odor Normal Normal Weight 301 lb 9.478 oz Patient Weight 06/16/17 06:59 Weight 301 lb 9.478 oz - Imaging and Cardiology Imaging & Cardiology Narrative: Date of Exam: 06/14/17 Ordering Provider: Wendy Meng Type of Exam(s): CT maxillofacial wo contrast Reason for Exam(s): s/p fall Indication: s/p fall PROCEDURE: CT maxillofacial wo contrast: Encounter: Initial Comparison: None Technique: Axial noncontrast CT images through the mid face were performed with coronal and sagittal two-dimensional reformats. Automated Exposure Control and Iterative Reconstruction dose reducing techniques were utilized. Findings: Diffuse subcutaneous emphysema seen in the upper neck and left facial region. There is a small of fluid in the left maxillary sinus. Periodontal disease seen in the maxillary and mandibular teeth. There is a fracture of the left inferior orbital floor. There is no definite CT evidence of extraocular muscle entrapment. The globes are intact. The lenses are located. No intraconal hematoma or inflammation. There is gas in the left orbit. No additional acute maxillofacial fractures seen. No focal fluid collection or focal hematoma. Impression: Mildly depressed left orbital floor fracture with extensive subcutaneous emphysema. 06/15/17 15:09 Assessment and Plan - Assessment and Plan (1) Dilated cardiomyopathy Problem details: EF 10-15% with 3/4 diastolic dysfunction on 06/11/17 EF 30% on TTE done 10/2015; global hypokinesis and dilated LV; EF 55% 09/2016 Current visit: No Status: Acute (2) Hypertension Problem details: Off all medications for > 6 months, uncontrolled Current visit: No Status: Acute (3) Acute and chronic respiratory failure with hypoxia Problem details: Chronic secondary to COPD, acute likely a combination of COPD exacerbation and volume overload/systolic heart failure exacerbation Current visit: No Status: Acute (4) Anxiety Problem details: Severe and chronic, untreated, exacerbated by dyspnea Current visit: No Status: Acute (5) Acute chronic obstructive pulmonary disease with respiratory distress Current visit: Yes Status: Acute (6) COPD exacerbation Current visit: No Status: Acute (7) Congestive heart failure Current visit: Yes Status: Acute (8) Abdominal wall cellulitis Current visit: No Status: Acute - Assessment and Plan Atrial flutter with variable block Acute on Chronic systolic heart failure Medical and Lifestyle Non-Compliance Morbid Obesity Severe COPD Acute on chronic hypoxic respiratory failure 06/11/2017 Start IV Amiodarone and IV Heparin Will consider DCCV in AM if patient does not convert to NSR Agree with aggressive IV diuresis Patient's EF has decreased and now at approx 15%. His last HC 2014 revealing no significant CAD Likely the decreased EF is due to his arrhythmia We will attempt to regain NSR in an effort to improve his cardiac output as much as possible Continue B-Debbie and MANI-I NPO at midnight in the event we need to proceed with his JANEEN and DCCV This patient may need a Life Vest - will need to assess for compliance before placing the vest 06/12/2017 Patient had a successful DCCV into NSR today We will start him on Xarelto 20mg one tablet daily Patient now has Disability Medicare Insurance and Medicaid is pending Patient wants a Life vest - order has been put in place He understands the importance of compliance He said the only reason he was not compliant was due to financial reasons - "just did not have the money" We will change IV Lasix to oral Lasix 80mg po BID and start Diamox IV 250mg daily in an effort to improve his metabolic alkalosis Change to oral Amiodarone 200mg one tablet daily Patient will need Coreg, Lisinopril, Xarelto upon discharge patient will need to be on a 2 gram sodium restriction and a 2 Liter fluid restriction daily He will need to be followed in our clinic regularly to follow his CHF Patient's EF approx 10 to 15% 06/13/17 Remains hypotensive. - Agree with decreased doses of Coreg and Lisinopril if tolerates - Hold diuretic today, change to daily tomorrow. 06/14/17 Continue to hold Lasix, Continue Diamox - Consider Coumadin instead of Xarelto due to financial cost. 06/15/17 PCO2 79 on ABG, Continue Diamox, refuses Bi-Pap Scr improved, 1.3 today from 1.8 yesterday Will provide samples and discount card for Xarelto on discharge if decided to stay on Xarelto Hospital Course Summary Disclaimer: The visit summary below is not to be considered part of the above Progress Note. Hospital Course: 06/09/17 Diuresis initiated overnight and will be continued with IV Lasix. Weight is up 17 kg in 5 weeks consistent with describe symptoms. Monitor electrolytes in the event supplemental potassium or magnesium becomes necessary. Continue supplemental oxygen. Resume metoprolol, lisinopril, and simvastatin as previously prescribed. Anticipate echocardiogram early next week. Continue Accu-Cheks, converted to diabetic diet with fluid restriction of 1800 mL per 24 hours. Albuterol/Atrovent treatments ordered 4 times daily and when necessary. Patient has requested lorazepam "that he takes at home" per nursing report which will require further clarification as this was neither prescribed at discharge nor reported by patient when I spoke with him. Sertraline was prescribed for his chronic anxiety/depressive disorder and will be resumed. 06/10/17 Currently on Lasix 60 mg IV every 6 hours without significant results. Will add one time dose of metolazone 5 mg by mouth now. Down 2.6 kilograms since admission. Echocardiogram early next week. Accu-Cheks ordered. Continue diabetic diet with fluid restriction of 1800 mL per 24 hours. Continue DuoNeb treatments. Add Pulmicort for wheezing. Add Neurontin for his neuropathic pain. Start at 300 mg daily and increase as tolerated. 06/11/17 Diamox 500mg po x 1 for CO2 retention. Currently on Lasix 60 mg IV every 6 hours. Had one time dose of metolazone 5 mg po yesterday with good results. Weight down almost 6 kilograms since admission. Tachycardic since last evening despite metoprolol 25 BID--> atrial flutter with variable block. Echocardiogram with severely reduced ejection fraction of approximate 10-15% and akinetic mid apical anterior, mid apical anteroseptal, and mid apical anterolateral wall. 3/4 diastolic dysfunction. Cardiology consulted for altered rhythm and cardiomyopathy-amiodarone and heparin drips initiated. Neurontin added yesterday for his neuropathic pain. Increase to TID. Consult OT/PT. Maintaining at home O2 at 3L; known diagnosis VALARIE, overnight oximetry tonight prior to trial of CPAP. 06/12/17 Patient hypotensive this afternoon corresponding to fall or syncopal event with facial injuries. For CT head and cervical spine; being placed in cervical collar at this time. Diuretics on hold, if blood pressure remains low small fluid bolus will be given. Carvedilol and lisinopril doses decreased by 50% pending stabilization of blood pressure. Discussed with Dr. Merchant after initial report of hypotension however it appeared to be artifactual at that time. Patient was on heparin earlier in the day; nursing reports heparin was off 30- 60 minutes prior to fall. Brief nasal bleeding reported immediately after fall. Successfully cardioverted to sinus rhythm earlier today-remains in sinus rhythm. Dr. Merchant has discussed Life Vest with patient in addition need for aggressive medical management due to severity of cardiac disease. Patient critically [id number] for complications of unstable blood pressure/ head injury. Overnight oximetry demonstrated moderate interference; oxygen saturation was < 89% for 10 minutes (patient was on 3 L oxygen by nasal cannula until 0230, 2 L from [id number], then CPAP from [id number]. Lowest oxygen saturation reported was 79% and the longest desaturation was 57 seconds. [place] pattern evident on tracing. Patient did not tolerate standard face mask with CPAP last night-nasal mask to be tried tonight. <Lee Merchant - Last Filed: 06/19/17 12:40> Exam Vital signs: Temperature 98.2 F 06/19/17 07:54 Pulse Rate 81 06/19/17 08:00 Respiratory Rate 18 06/19/17 11:05 Blood Pressure 153/97 H 06/19/17 07:54 Pulse Oximetry 93 06/19/17 11:05 Inpatient Medications: Generic Name Dose Route Start Last Admin Trade Name Freq PRN Reason Stop Dose Admin Acetaminophen 650 mg 06/10/17 14:38 06/15/17 20:18 Tylenol PO 650 mg Q5H PRN Administration Discomfort Hydrocodone Bitart/Acetaminophen 1 - 2 tab 06/12/17 19:34 06/19/17 08:56 [facility] 5/325 PO 1 tab Q4H PRN Administration Pain Acetazolamide 250 mg 06/14/17 10:16 06/19/17 08:55 Diamox PO 250 mg BID RICHARD Administration Albuterol/Ipratropium 3 ml 06/09/17 11:00 06/19/17 11:05 Duoneb AEROSOL 3 ml RTQID RICHARD Administration Albuterol/Ipratropium 3 ml 06/09/17 10:34 06/17/17 04:59 Duoneb AEROSOL 3 ml QID PRN Administration Shortness of air/wheezing Alprazolam 0.5 mg 06/15/17 10:52 06/19/17 10:00 Xanax PO 0.5 mg TID PRN Administration Anxiety Amiodarone HCl 200 mg 06/12/17 16:45 06/19/17 08:55 Pacerone PO 200 mg DAILY RICHARD Administration Artificial Tears 1 drop 06/14/17 14:17 Refresh Classic EACH EYE QID PRN Carvedilol 3.125 mg 06/12/17 17:47 06/19/17 08:55 Coreg PO 3.125 mg BIDWM RICHARD Administration Furosemide 40 mg 06/19/17 09:00 06/19/17 08:55 Lasix 40 Mg Tab PO 40 mg DAILY RICHARD Administration Gabapentin 300 mg 06/11/17 09:58 06/19/17 08:55 Neurontin PO 300 mg TID RICHARD Administration Lisinopril 2.5 mg 06/13/17 09:00 06/19/17 08:55 Prinivil PO 2.5 mg DAILY RICHARD Administration Metoclopramide HCl 5 mg 06/09/17 03:33 Reglan IVP Q6H PRN Rivaroxaban 20 mg 06/13/17 17:30 06/18/17 18:10 Xarelto PO 20 mg WS RICHARD Administration Senna/Docusate Sodium 2 tab 06/10/17 21:00 06/19/17 08:56 Senna Plus Tablet PO 2 tab BID RICHARD Administration Sertraline HCl 50 mg 06/10/17 09:00 06/19/17 08:56 Zoloft PO 50 mg DAILY RICHARD Administration Simvastatin 20 mg 06/09/17 21:00 06/18/17 20:55 Zocor PO 20 mg HS RICHARD Administration Sodium Chloride 10 - 80 ml 06/09/17 02:14 06/16/17 20:49 Iv Flush IVF 10 ml PRN PRN Administration Flushing Discontinued Medications Generic Name Dose Route Start Last Admin Trade Name Freq PRN Reason Stop Dose Admin Hydrocodone Bitart/Acetaminophen 1 tab 06/09/17 03:33 06/12/17 11:52 [facility] 5/325 PO 1 tab Q6H PRN Administration Pain Acetazolamide 500 mg 06/11/17 09:59 06/11/17 11:18 Diamox PO 06/11/17 10:00 500 mg O ONE Administration Acetazolamide Sodium 250 mg 06/12/17 16:45 06/12/17 19:32 Diamox Inj IV Not Given DAILY RICHARD Albuterol Sulfate 7.5 mg 06/09/17 02:35 06/09/17 02:47 Proventil Neb (0.083%) AEROSOL 06/09/17 02:36 7.5 mg O ONE Administration Albuterol/Ipratropium 3 ml 06/09/17 02:14 06/09/17 02:28 Duoneb IH 06/09/17 02:15 3 ml ONCE ONE Administration Budesonide 0.5 mg 06/10/17 19:00 06/18/17 20:20 Pulmicort Inhalation AEROSOL 0.5 mg RTBID RICHARD Administration Carvedilol 6.25 mg 06/12/17 17:30 06/12/17 18:17 Coreg PO Not Given BIDWM RICHARD Furosemide 80 mg 06/09/17 02:34 06/09/17 02:38 Lasix 100 Mg/10 Ml IVP 06/09/17 02:35 80 mg O ONE Administration Furosemide 60 mg 06/09/17 09:00 06/12/17 16:58 Lasix 40 Mg/4 Ml IVP Not Given Q6HR RICHARD Furosemide 80 mg 06/12/17 17:00 06/12/17 18:16 Lasix 80 Mg Tab PO Not Given 0900,1700 RICHARD Furosemide 80 mg 06/14/17 09:00 Lasix 80 Mg Tab PO DAILY RICHARD Furosemide 40 mg 06/18/17 13:15 06/18/17 18:10 Lasix 40 Mg Tab PO 40 mg 0900,1700 RICHARD Administration Gabapentin 300 mg 06/10/17 21:00 06/10/17 21:41 Neurontin PO 300 mg HS RICHARD Administration Heparin Sodium (Beef Lung) 8,000 unit 06/11/17 15:30 06/11/17 16:12 Heparin Bolus IV 06/11/17 15:31 8,000 unit O ONE Administration Heparin Sodium (Porcine) 1 each 06/11/17 14:29 Pharmacy Consult - Heparin 06/11/17 14:30 ONE TIME ONE Amiodarone HCl 900 mg/ Sodium 500 mls @ 16.66 mls/hr 06/11/17 14:30 06/12/17 16:58 Chloride IV Infused .Q24H RICHARD Infusion 0.5 MG/MIN Amiodarone HCl 450 mg/ Sodium 250 mls @ 33.33 mls/hr 06/11/17 14:30 06/12/17 00:18 Chloride IV 06/11/17 20:30 Infused .[id number] RICHARD Infusion 1 MG/MIN Amiodarone HCl 150 mg/ Sodium 103 mls @ 618 mls/hr 06/11/17 14:29 06/11/17 15 :40 Chloride IV 06/11/17 14:38 Infused O ONE Infusion Heparin Sodium (Porcine) 20,000 unit in 500 mls @ 33 mls/hr 06/11/17 15:30 16:57 Heparin Drip IV Infused .[id number] RICHARD Titration Protocol Sodium Chloride 500 mls @ 250 mls/hr 06/12/17 19:45 06/12/17 21:50 Normal Saline IV 06/12/17 20:44 Infused .Q2H RICHARD Infusion Lisinopril 20 mg 06/09/17 10:45 06/12/17 11:43 Prinivil PO 20 mg DAILY RICHARD Administration Lisinopril 5 mg 06/12/17 17:30 06/12/17 18:17 Prinivil PO Not Given DAILY RICHARD Lorazepam 1 mg 06/09/17 17:15 06/11/17 20:59 Ativan PO 1 mg TID PRN Administration Anxiety Lorazepam 0.5 mg 06/13/17 17:39 06/15/17 08:43 Ativan PO 0.5 mg TID PRN Administration Anxiety Methylprednisolone Sodium Succinate 125 mg 06/09/17 02:14 06/09/17 02:34 Solu-Medrol IVP 06/09/17 02:15 125 mg O ONE Administration Methylprednisolone Sodium Succinate 40 mg 06/09/17 09:00 06/09/17 09:04 Solu-Medrol IM Not Given Q6HR RICHARD Metolazone 5 mg 06/10/17 14:56 06/10/17 15:20 Zaroxolyn PO 06/10/17 14:57 5 mg O ONE Administration Metoprolol Tartrate 25 mg 06/09/17 17:30 06/12/17 11:42 Lopressor PO 25 mg BIDWM RICHARD Administration Pharmacy Consult each 06/15/17 04:01 Pharmacy Consult - Fall Risk 06/15/17 04:02 ONE TIME ONE Potassium Chloride 20 meq 06/14/17 14:39 06/14/17 14:58 K-Dur 20 Meq Tablet PO 06/14/17 14:40 20 meq O ONE Administration Senna/Docusate Sodium 1 tab 06/09/17 03:33 Senna Plus Tablet PO BID PRN Constipation Results 06/18/17 05:16 06/19/17 04:25 Comprehensive Metabolic Panel 06/19/17 Range/Units 04:25 Sodium 144 (134-144) MEQ/L Potassium 4.1 (3.6-5) MEQ/L Chloride 91 L (98-107) MEQ/L Carbon Dioxide 42 H* (22-30) MEQ/L BUN 24.0 H (9-20) MG/DL Creatinine 1.3 D (0.8-1.5) mg/dL Glucose 98 (75-110) MG/DL Calcium 9.6 (8.4-10.2) MG/DL Intake and Output 06/18/17 06/19/17 06/19/17 22:59 06:59 14:59 Intake Total 590 / 590 125 / 125 450 / 450 Output Total 250 / 250 Balance 590 / 590 125 / 125 200 / 200 Intake: Oral 590 / 590 125 / 125 450 / 450 Output: Urine 250 / 250 Other: Urine Appearance Clear Urine Color Straw Stool Color Brown Stool Consistency Soft Formed Size of Bowel Movement Moderate # Voids 1 1 # Bowel Movements 1 Weight 133.5 kg Patient Weight 06/20/17 06:59 Weight 133.5 kg Assessment and Plan - Assessment and Plan (1) Dilated cardiomyopathy Problem details: EF 10-15% with 3/4 diastolic dysfunction on 06/11/17 EF 30% on TTE done 10/2015; global hypokinesis and dilated LV; EF 55% 09/2016 Current visit: No Status: Acute (2) Hypertension Problem details: Off all medications for > 6 months, uncontrolled Current visit: No Status: Acute (3) Acute and chronic respiratory failure with hypoxia Problem details: Chronic secondary to COPD, acute likely a combination of COPD exacerbation and volume overload/systolic heart failure exacerbation Current visit: No Status: Acute (4) Anxiety Problem details: Severe and chronic, untreated, exacerbated by dyspnea Current visit: No Status: Acute (5) Acute chronic obstructive pulmonary disease with respiratory distress Current visit: Yes Status: Acute (6) COPD exacerbation Current visit: No Status: Acute (7) Congestive heart failure Current visit: Yes Status: Acute (8) Abdominal wall cellulitis Current visit: No Status: Acute - Attestation Attestation Narrative: 06/19/17 12:40 Recommendation After examining the patient I agree with the above assessment. I am involved in the formulation of the patient's plan of care. Hospital Course Summary Disclaimer: The visit summary below is not to be considered part of the above Progress Note.
[2017-06-15] MEDS: ACETAMINOPHEN 325 MG TABLET PO PRN (20:18)
[2017-06-15] MEDS: SIMVASTATIN 20 MG TABLET PO SCH (20:18)
[2017-06-15] MEDS: RIVAROXABAN 20 MG TABLET PO SCH (22:03)
[2017-06-16] MEDS: ALBUTEROL/IPRATROPIUM 2.5mg-0.5mg/3ml NEB AEROSOL SCH ×4 (07:36→19:16)
[2017-06-16] MEDS: BUDESONIDE INH.SOLN 0.5mg/2ml NEB AEROSOL SCH ×2 (07:36→19:16)
[2017-06-16] MEDS: SENNA + DOCUSATE TABLET PO SCH ×2 (09:00→20:48)
[2017-06-16] MEDS: LISINOPRIL 2.5 MG TABLET PO SCH (09:18)
[2017-06-16] MEDS: CARVEDILOL 3.125 MG TABLET PO SCH ×2 (09:19→18:13)
[2017-06-16] MEDS: GABAPENTIN 300 MG CAPSULE PO SCH ×3 (09:19→20:48)
[2017-06-16] MEDS: acetaZOLAMIDE 250 MG TABLET PO SCH ×2 (09:19→20:48)
[2017-06-16] MEDS: AMIODARONE 200 MG TABLET PO SCH (09:19)
[2017-06-16] MEDS: SERTRALINE 50 MG TABLET PO SCH (09:19)
[2017-06-16] MEDS: ALPRAZolam 0.5 MG TABLET PO PRN (09:29)
--- NOTE | 2017-06-16 17:48 | Progress Note ---
- Date 06/16/17 Subjective: Gray was seen with his son at the bedside. He reported today with another bad day because a second dog . He denied dyspnea and reported no use of BiPAP overnight because RT and nursing did not put it on. He has less facial pain and has been able to open his left eye a little bit independently but reports double vision when he tries to open the eye. He's chewing with less discomfort and appetite is good. He denied nausea or vomiting and has minimal pain associated with facial fracture. He denied chest pain or palpitations. Objective Vital signs: Temperature 96.7 F L 06/16/17 15:57 Pulse Rate 74 06/16/17 16:00 Respiratory Rate 14 06/16/17 15:57 Blood Pressure 80/74 06/16/17 15:57 Pulse Oximetry 95 06/16/17 15:57 I/O 340/2300 Weight unchanged over the past 4 days Drowsy male, responds appropriately Decreased left periorbital edema and ecchymosis, moderate tenderness to palpation over the inferior left orbital rim Unable to open left eye about 2 mm spontaneously, EOMI is grossly intact, complains of diplopia in all visual park at present but gaze is grossly conjugate Respirations nonlabored, good airflow, breath sounds clear Regular rhythm, S1-S2 Abdomen soft with decreasing abdominal wall edema Extremities with +2 edema Flat affect, argumentative/irritable with his son today Height/Weight/BMI: Height 1.78 m Weight 136.8 kg Body Mass Index 44.4 Results - Labs CBC & Chem 7: 06/15/17 04:04 06/16/17 05:28 - ABG Interpretation ABG results: 06/15/17 09:19 ABG pH 7.337 L ABG pCO2 79 H* ABG pO2 65.6 L ABG HCO3 42.3 H ABG Total CO2 44.7 H ABG O2 Saturation 89.7 L ABG Base Excess 12.4 H - Imaging and Cardiology Chest x-ray Status: image reviewed by me (cardiomegaly, basilar atelectasis-primarily on the left) Assessment and Plan (1) Dilated cardiomyopathy Problem details: EF 10-15% with 3/4 diastolic dysfunction on 06/11/17 EF 30% on TTE done 10/2015; global hypokinesis and dilated LV; EF 55% 09/2016 Current visit: No Status: Acute (2) COPD, severe Problem details: on 3L NC chronically at home Current visit: No Status: Chronic (3) Acute and chronic respiratory failure with hypoxia Problem details: Chronic secondary to COPD, acute likely a combination of COPD exacerbation and volume overload/systolic heart failure exacerbation Current visit: No Status: Acute Assessment and Plan: Assessment Acute on chronic CHF Volume overload Dilated cardiomyopathy with EF of 10-15% - Life Vest per cardiology Chronic hypercarbic/hypoxic respiratory failure Hypertension COPD Obstructive sleep apnea Diabetes mellitus, type II-diet controlled-A1C 6.1 05/01/17 Peripheral neuropathy Morbid obesity Depression/anxiety Fall versus syncope with head injury-06/12/17 Facial trauma due to fall Minimally depressed left orbital fracture sustained 06/12/17 Hypotension-06/13/15 Acute kidney injury - resolved Plan CO2 remains high, on acetazolamide 48 hours. ABG yesterday with pH of 7.34, PCO2 79, PO2 65, and H2O3 of 42 on 3 L. BiPAP reinitiated this morning with fullface mask and patient is at least tolerating for short time periods; reapplied this afternoon and was on again when I last walked by the room. Patient continues to sleep much of the day. Blood pressure has generally been stable although last recorded pressure was down. Carvedilol and lisinopril doses decreased and furosemide on hold. Attempting to minimize narcotics and alprazolam due to sedation/CO2 retention. Continue to monitor eye movements and visual symptoms. At present formal ophthalmology evaluation has not been pursued but may be needed if diplopia persists. Renal function continues to improve following recent hypertension. Reassess electrolytes in a.m.; chest x-ray reviewed by myself Discussed with Dr. Rebolledo. DVT Prophylaxis: Xarelto Resuscitation Status: Full Code - Physician Narrative Narrative: Date: 06/16/17 Time: 1743 Hospital Course Summary Disclaimer: The visit summary below is not to be considered part of the above Progress Note. Hospital Course: 06/09/17 Diuresis initiated overnight and will be continued with IV Lasix. Weight is up 17 kg in 5 weeks consistent with describe symptoms. Monitor electrolytes in the event supplemental potassium or magnesium becomes necessary. Continue supplemental oxygen. Resume metoprolol, lisinopril, and simvastatin as previously prescribed. Anticipate echocardiogram early next week. Continue Accu-Cheks, converted to diabetic diet with fluid restriction of 1800 mL per 24 hours. Albuterol/Atrovent treatments ordered 4 times daily and when necessary. Patient has requested lorazepam "that he takes at home" per nursing report which will require further clarification as this was neither prescribed at discharge nor reported by patient when I spoke with him. Sertraline was prescribed for his chronic anxiety/depressive disorder and will be resumed. 06/10/17 Currently on Lasix 60 mg IV every 6 hours without significant results. Will add one time dose of metolazone 5 mg by mouth now. Down 2.6 kilograms since admission. Echocardiogram early next week. Accu-Cheks ordered. Continue diabetic diet with fluid restriction of 1800 mL per 24 hours. Continue DuoNeb treatments. Add Pulmicort for wheezing. Add Neurontin for his neuropathic pain. Start at 300 mg daily and increase as tolerated. 06/11/17 Diamox 500mg po x 1 for CO2 retention. Currently on Lasix 60 mg IV every 6 hours. Had one time dose of metolazone 5 mg po yesterday with good results. Weight down almost 6 kilograms since admission. Tachycardic since last evening despite metoprolol 25 BID--> atrial flutter with variable block. Echocardiogram with severely reduced ejection fraction of approximate 10-15% and akinetic mid apical anterior, mid apical anteroseptal, and mid apical anterolateral wall. 3/4 diastolic dysfunction. Cardiology consulted for altered rhythm and cardiomyopathy-amiodarone and heparin drips initiated. Neurontin added yesterday for his neuropathic pain. Increase to TID. Consult OT/PT. Maintaining at home O2 at 3L; known diagnosis VALARIE, overnight oximetry tonight prior to trial of CPAP. 06/12/17 Patient hypotensive this afternoon corresponding to fall or syncopal event with facial injuries. For CT head and cervical spine; being placed in cervical collar at this time. Diuretics on hold, if blood pressure remains low small fluid bolus will be given. Carvedilol and lisinopril doses decreased by 50% pending stabilization of blood pressure. Discussed with Dr. Merchant after initial report of hypotension however it appeared to be artifactual at that time. Patient was on heparin earlier in the day; nursing reports heparin was off 30- 60 minutes prior to fall. Brief nasal bleeding reported immediately after fall. Successfully cardioverted to sinus rhythm earlier today-remains in sinus rhythm. Dr. Merchant has discussed Life Vest with patient in addition need for aggressive medical management due to severity of cardiac disease. Patient critically [id number] for complications of unstable blood pressure/ head injury. Overnight oximetry demonstrated moderate interference; oxygen saturation was < 89% for 10 minutes (patient was on 3 L oxygen by nasal cannula until 0230, 2 L from 6819-3267, then CPAP from 5027-9583. Lowest oxygen saturation reported was 79% and the longest desaturation was 57 seconds. [place] pattern evident on tracing. Patient did not tolerate standard face mask with CPAP last night-nasal mask to be tried tonight. 06/13/17 Patient remains mildly hypotensive this today; diuretics remain on hold. Gray received 500 mL fluid yesterday evening due to hypotension. Lisinopril and carvedilol dose is decreased. Due to severity of cardiomyopathy will need to resume medications as soon as blood pressure permits. Events of yesterday evening reviewed with cardiology; patient remains in sinus rhythm following cardioversion yesterday. Patient did not try CPAP last night due to facial injuries but is willing to try as tolerated today and tonight. Reminded to use CPAP both overnight and with daytime naps. Creatinine up today-1.9; BUN/creatinine were slightly elevated yesterday morning reflecting diuresis but worsened following hypertension yesterday. Repeat labs now. If creatinine climbing further will replace additional volume this evening. Patient remains at high risk for complications due to combined cardiomyopathy, nocturnal hypoxia, and hemodynamic instability. 06/14/17 BP still hypotensive occasionally but improving from yesterday. Cont low-dose amlodipine and carvedilol. diuretics on hold and acetazolamide has been started for increasing CO2 levels. Encourage CPAP use. Na low but stable at 133. K 3.5 -- replaced orally. BUN up slightly to 41; creatinine decreased from 1.9 to 1.8. Will obtain maxillofacial CT for left mandibular pain and trismus. 06/15/17 CO2 continues to climb despite starting acetazolamide yesterday. Today it is 47. He was more somnolent this morning and an ABG was obtained, showing a pH of 7.34, PCO2 79, PO2 65, and H2O3 of 42 on 3 L. He is unable to tolerate CPAP via mask or nasal cannula because of facial trauma. Dr. Rebolledo has been consulted to help manage his COPD and hypercarbic/hypoxic respiratory failure in the setting of facial trauma. Parisa Garcia APRN recommends to decrease oxygen for a goal saturation of 90%. Blood pressure currently stable though he was hypotensive late last evening at 87/64. Continue low-dose amlodipine and carvedilol, managed per cardiology. Anticoagulation d/w Caryl Salas APRN: likely will change to Coumadin because of cost of Xarelto. Sodium and potassium have both been corrected. Renal function is improving and diuretics remain on hold. BUN is 47 and creatinine is 1.3. Maxillofacial CT yesterday revealed a mildly depressed left orbital floor fracture with extensive subcutaneous emphysema. He is able to slightly open his eye today. 06/16/17 CO2 remains high, on acetazolamide 48 hours. ABG yesterday with pH of 7.34, PCO2 79, PO2 65, and H2O3 of 42 on 3 L. BiPAP reinitiated this morning with fullface mask and patient is at least tolerating for short time periods; reapplied this afternoon and was on again when I last walked by the room. Patient continues to sleep much of the day. Blood pressure has generally been stable although last recorded pressure was down. Carvedilol and lisinopril doses decreased and furosemide on hold. Attempting to minimize narcotics and alprazolam due to sedation/CO2 retention. Continue to monitor eye movements and visual symptoms. At present formal ophthalmology evaluation has not been pursued but may be needed if diplopia persists.
[2017-06-16] MEDS: RIVAROXABAN 20 MG TABLET PO SCH (18:13)
[2017-06-16] MEDS: SALINE FLUSH 10ml SYRINGE IVF PRN (20:49)
[2017-06-16] MEDS: SIMVASTATIN 20 MG TABLET PO SCH (20:49)
[2017-06-17] MEDS: ALBUTEROL/IPRATROPIUM 2.5mg-0.5mg/3ml NEB AEROSOL PRN (04:59)
[2017-06-17] MEDS: ALBUTEROL/IPRATROPIUM 2.5mg-0.5mg/3ml NEB AEROSOL SCH ×4 (07:52→21:05)
[2017-06-17] MEDS: BUDESONIDE INH.SOLN 0.5mg/2ml NEB AEROSOL SCH ×2 (07:52→21:05)
[2017-06-17] MEDS: SENNA + DOCUSATE TABLET PO SCH ×2 (09:41→20:51)
[2017-06-17] MEDS: acetaZOLAMIDE 250 MG TABLET PO SCH ×2 (09:42→20:51)
[2017-06-17] MEDS: AMIODARONE 200 MG TABLET PO SCH (09:42)
[2017-06-17] MEDS: GABAPENTIN 300 MG CAPSULE PO SCH ×3 (09:42→20:51)
[2017-06-17] MEDS: CARVEDILOL 3.125 MG TABLET PO SCH ×2 (09:42→18:26)
[2017-06-17] MEDS: LISINOPRIL 2.5 MG TABLET PO SCH (09:42)
[2017-06-17] MEDS: SERTRALINE 50 MG TABLET PO SCH (09:43)
--- NOTE | 2017-06-17 09:58 | XRay Report ---
Indication: CHF PROCEDURE: XR chest 1V: Encounter: Initial Comparison: June 09, 2017 Findings: New airspace opacity above the left hemidiaphragm. Hazy airspace opacity in the left upper lobe as well. Right lung appears clear. No pneumothorax or definite effusion. Cardiac silhouette remains enlarged. Mediastinal contours are stable. Pulmonary vascularity is unchanged. Impression: New left-sided airspace opacities could represent pneumonia or atelectasis. No overt congestive failure. .
[2017-06-17] MEDS: ALPRAZolam 0.5 MG TABLET PO PRN (15:56)
[2017-06-17] MEDS: HYDROCODONE/APAP 5mg/325mg TABLET PO PRN ×2 (15:56→20:54)
--- NOTE | 2017-06-17 16:44 | Progress Note ---
- Date 06/17/17 Subjective: The patient was seen this afternoon in his room accompanied by his teenaged son. Patient states he is feeling better. He states his eye swelling has improved. He states his pain from his orbital fracture is improving and he is tolerating BiPAP. He used it off and on last night and off and on during the day today. He denies any shortness of breath. He denies any chest discomfort. He states his edema is much better. He states he's feeling well enough to go home. We discussed possible transfer to a halfway unit, but he states he will not go and just wants to go home. He is hoping to go home by midweek. Objective Vital signs: Temperature 95.7 F L 06/17/17 15:00 Pulse Rate 71 06/17/17 15:00 Respiratory Rate 18 06/17/17 15:05 Blood Pressure 112/75 06/17/17 15:00 Pulse Oximetry 93 06/17/17 15:05 Height/Weight/BMI: Height 1.78 m Weight 131.6 kg Body Mass Index 44.4 Comments: Weight was 142.4 kg on admission and is 131.6 today. cumulative I&O is -13 L GEN-drowsy but arousable, oriented, no acute distress HEENT-bruising and swelling around the left eye, patient and his son both state is improving. Pupils are equal with conjugate gaze CV-regular rate and rhythm CHEST-clear to auscultation bilaterally, LifeVest is on ABD-soft, obese, nontender with positive bowel sounds -no Abdalla EXT-trace pretibial edema NEURO-focal deficits SKIN-warm and dry Results - Labs CBC & Chem 7: 06/15/17 04:04 06/17/17 07:25 Assessment and Plan (1) Dilated cardiomyopathy Problem details: EF 10-15% with 3/4 diastolic dysfunction on 06/11/17 EF 30% on TTE done 10/2015; global hypokinesis and dilated LV; EF 55% 09/2016 Current visit: No Status: Acute (2) COPD, severe Problem details: on 3L NC chronically at home Current visit: No Status: Chronic (3) Acute and chronic respiratory failure with hypoxia Problem details: Chronic secondary to COPD, acute likely a combination of COPD exacerbation and volume overload/systolic heart failure exacerbation Current visit: No Status: Acute Assessment and Plan: Assessment Acute on chronic CHF Volume overload-improved Dilated cardiomyopathy with EF of 10-15% - Life Vest per cardiology Chronic hypercarbic/hypoxic respiratory failure-BiPAP as tolerated with sleep Hypertension-pressure borderline low COPD Obstructive sleep apnea Diabetes mellitus, type II-diet controlled-A1C 6.1 05/01/17 Peripheral neuropathy Morbid obesity Depression/anxiety Fall versus syncope with head injury-06/12/17 Facial trauma due to fall Minimally depressed left orbital fracture sustained 06/12/17 Hypotension-06/13/15 Acute kidney injury - resolved Plan CO2 remains high, but has improved on acetazolamide 48 hours. BiPAP reinitiated yesterday and he is tolerating intermittently. Patient continues to sleep much of the day, but states he does this because he is "bored". Regarding borderline low blood pressure, Carvedilol and lisinopril doses decreased and furosemide on hold. Attempting to minimize narcotics and alprazolam due to sedation/CO2 retention. Continue to monitor eye movements and visual symptoms. Currently the patient has conjugate gaze and swelling has improved. Renal function continues to improve following recent hypotension. CBC and renal panel tomorrow. Ask PT and OT to reevaluate tomorrow. Try to obtain outpatient BiPAP. We'll need to discuss with case management and Dr. Rebolledo. DVT Prophylaxis: Xarelto Resuscitation Status: Full Code - Physician Narrative Narrative: Date: 06/17/17 Time: 1635 Hospital Course Summary Disclaimer: The visit summary below is not to be considered part of the above Progress Note. Hospital Course: 06/09/17 Diuresis initiated overnight and will be continued with IV Lasix. Weight is up 17 kg in 5 weeks consistent with describe symptoms. Monitor electrolytes in the event supplemental potassium or magnesium becomes necessary. Continue supplemental oxygen. Resume metoprolol, lisinopril, and simvastatin as previously prescribed. Anticipate echocardiogram early next week. Continue Accu-Cheks, converted to diabetic diet with fluid restriction of 1800 mL per 24 hours. Albuterol/Atrovent treatments ordered 4 times daily and when necessary. Patient has requested lorazepam "that he takes at home" per nursing report which will require further clarification as this was neither prescribed at discharge nor reported by patient when I spoke with him. Sertraline was prescribed for his chronic anxiety/depressive disorder and will be resumed. 06/10/17 Currently on Lasix 60 mg IV every 6 hours without significant results. Will add one time dose of metolazone 5 mg by mouth now. Down 2.6 kilograms since admission. Echocardiogram early next week. Accu-Cheks ordered. Continue diabetic diet with fluid restriction of 1800 mL per 24 hours. Continue DuoNeb treatments. Add Pulmicort for wheezing. Add Neurontin for his neuropathic pain. Start at 300 mg daily and increase as tolerated. 06/11/17 Diamox 500mg po x 1 for CO2 retention. Currently on Lasix 60 mg IV every 6 hours. Had one time dose of metolazone 5 mg po yesterday with good results. Weight down almost 6 kilograms since admission. Tachycardic since last evening despite metoprolol 25 BID--> atrial flutter with variable block. Echocardiogram with severely reduced ejection fraction of approximate 10-15% and akinetic mid apical anterior, mid apical anteroseptal, and mid apical anterolateral wall. 3/4 diastolic dysfunction. Cardiology consulted for altered rhythm and cardiomyopathy-amiodarone and heparin drips initiated. Neurontin added yesterday for his neuropathic pain. Increase to TID. Consult OT/PT. Maintaining at home O2 at 3L; known diagnosis VALARIE, overnight oximetry tonight prior to trial of CPAP. 06/12/17 Patient hypotensive this afternoon corresponding to fall or syncopal event with facial injuries. For CT head and cervical spine; being placed in cervical collar at this time. Diuretics on hold, if blood pressure remains low small fluid bolus will be given. Carvedilol and lisinopril doses decreased by 50% pending stabilization of blood pressure. Discussed with Dr. Merchant after initial report of hypotension however it appeared to be artifactual at that time. Patient was on heparin earlier in the day; nursing reports heparin was off 30- 60 minutes prior to fall. Brief nasal bleeding reported immediately after fall. Successfully cardioverted to sinus rhythm earlier today-remains in sinus rhythm. Dr. Merchant has discussed Life Vest with patient in addition need for aggressive medical management due to severity of cardiac disease. Patient critically [id number] for complications of unstable blood pressure/ head injury. Overnight oximetry demonstrated moderate interference; oxygen saturation was < 89% for 10 minutes (patient was on 3 L oxygen by nasal cannula until 0230, 2 L from 3579-3074, then CPAP from [id number]. Lowest oxygen saturation reported was 79% and the longest desaturation was 57 seconds. [place] pattern evident on tracing. Patient did not tolerate standard face mask with CPAP last night-nasal mask to be tried tonight. 06/13/17 Patient remains mildly hypotensive this today; diuretics remain on hold. Gray received 500 mL fluid yesterday evening due to hypotension. Lisinopril and carvedilol dose is decreased. Due to severity of cardiomyopathy will need to resume medications as soon as blood pressure permits. Events of yesterday evening reviewed with cardiology; patient remains in sinus rhythm following cardioversion yesterday. Patient did not try CPAP last night due to facial injuries but is willing to try as tolerated today and tonight. Reminded to use CPAP both overnight and with daytime naps. Creatinine up today-1.9; BUN/creatinine were slightly elevated yesterday morning reflecting diuresis but worsened following hypertension yesterday. Repeat labs now. If creatinine climbing further will replace additional volume this evening. Patient remains at high risk for complications due to combined cardiomyopathy, nocturnal hypoxia, and hemodynamic instability. 06/14/17 BP still hypotensive occasionally but improving from yesterday. Cont low-dose amlodipine and carvedilol. diuretics on hold and acetazolamide has been started for increasing CO2 levels. Encourage CPAP use. Na low but stable at 133. K 3.5 -- replaced orally. BUN up slightly to 41; creatinine decreased from 1.9 to 1.8. Will obtain maxillofacial CT for left mandibular pain and trismus. 06/15/17 CO2 continues to climb despite starting acetazolamide yesterday. Today it is 47. He was more somnolent this morning and an ABG was obtained, showing a pH of 7.34, PCO2 79, PO2 65, and H2O3 of 42 on 3 L. He is unable to tolerate CPAP via mask or nasal cannula because of facial trauma. Dr. Rebolledo has been consulted to help manage his COPD and hypercarbic/hypoxic respiratory failure in the setting of facial trauma. Parisa Garcia APRN recommends to decrease oxygen for a goal saturation of 90%. Blood pressure currently stable though he was hypotensive late last evening at 87/64. Continue low-dose amlodipine and carvedilol, managed per cardiology. Anticoagulation d/w Caryl Martiza, [employer]: likely will change to Coumadin because of cost of Xarelto. Sodium and potassium have both been corrected. Renal function is improving and diuretics remain on hold. BUN is 47 and creatinine is 1.3. Maxillofacial CT yesterday revealed a mildly depressed left orbital floor fracture with extensive subcutaneous emphysema. He is able to slightly open his eye today. 06/16/17 CO2 remains high, on acetazolamide 48 hours. ABG yesterday with pH of 7.34, PCO2 79, PO2 65, and H2O3 of 42 on 3 L. BiPAP reinitiated this morning with fullface mask and patient is at least tolerating for short time periods; reapplied this afternoon and was on again when I last walked by the room. Patient continues to sleep much of the day. Blood pressure has generally been stable although last recorded pressure was down. Carvedilol and lisinopril doses decreased and furosemide on hold. Attempting to minimize narcotics and alprazolam due to sedation/CO2 retention. Continue to monitor eye movements and visual symptoms. At present formal ophthalmology evaluation has not been pursued but may be needed if diplopia persists.
[2017-06-17] MEDS: RIVAROXABAN 20 MG TABLET PO SCH (18:26)
[2017-06-17] MEDS: SIMVASTATIN 20 MG TABLET PO SCH (20:51)
[2017-06-18] MEDS: HYDROCODONE/APAP 5mg/325mg TABLET PO PRN ×3 (00:15→14:19)
[2017-06-18] MEDS: ALPRAZolam 0.5 MG TABLET PO PRN ×2 (00:15→15:51)
[2017-06-18] MEDS: SERTRALINE 50 MG TABLET PO SCH (08:17)
[2017-06-18] MEDS: acetaZOLAMIDE 250 MG TABLET PO SCH ×2 (08:17→20:55)
[2017-06-18] MEDS: GABAPENTIN 300 MG CAPSULE PO SCH ×3 (08:17→20:56)
[2017-06-18] MEDS: AMIODARONE 200 MG TABLET PO SCH (08:17)
[2017-06-18] MEDS: SENNA + DOCUSATE TABLET PO SCH ×2 (08:17→20:55)
[2017-06-18] MEDS: LISINOPRIL 2.5 MG TABLET PO SCH (08:17)
[2017-06-18] MEDS: CARVEDILOL 3.125 MG TABLET PO SCH ×2 (08:18→18:10)
[2017-06-18] MEDS: BUDESONIDE INH.SOLN 0.5mg/2ml NEB AEROSOL SCH ×2 (08:44→20:20)
[2017-06-18] MEDS: ALBUTEROL/IPRATROPIUM 2.5mg-0.5mg/3ml NEB AEROSOL SCH ×4 (08:45→20:21)
--- NOTE | 2017-06-18 09:29 | Pulmonology Progress Note ---
Subjective Principal diagnosis: Severe Non-ischemic Dialated CM, Atrial fibrillation Interval history: Pt in bed resting, wakes up to voice. States his breathing is doing ok, no SOB or cough noted at this time. used the NIPPV last noc for 7 hrs without issues noted. Exam Vital signs: Temperature 96.4 F L 06/18/17 08:00 Pulse Rate 81 06/18/17 08:00 Respiratory Rate 24 06/18/17 08:46 Blood Pressure 126/81 06/18/17 08:00 Pulse Oximetry 95 06/18/17 08:46 Inpatient Medications: Generic Name Dose Route Start Last Admin Trade Name Freq PRN Reason Stop Dose Admin Acetaminophen 650 mg 06/10/17 14:38 06/15/17 20:18 Tylenol PO 650 mg Q5H PRN Administration Discomfort Hydrocodone Bitart/Acetaminophen 1 - 2 tab 06/12/17 19:34 06/18/17 08:17 Butler 5/325 PO 1 tab Q4H PRN Administration Pain Acetazolamide 250 mg 06/14/17 10:16 06/18/17 08:17 Diamox PO 250 mg BID RICHARD Administration Albuterol/Ipratropium 3 ml 06/09/17 11:00 06/18/17 08:45 Duoneb AEROSOL 3 ml RTQID RICHARD Administration Albuterol/Ipratropium 3 ml 06/09/17 10:34 06/17/17 04:59 Duoneb AEROSOL 3 ml QID PRN Administration Shortness of air/wheezing Alprazolam 0.5 mg 06/15/17 10:52 06/18/17 00:15 Xanax PO 0.5 mg TID PRN Administration Anxiety Amiodarone HCl 200 mg 06/12/17 16:45 06/18/17 08:17 Pacerone PO 200 mg DAILY RICHARD Administration Artificial Tears 1 drop 06/14/17 14:17 Refresh Classic EACH EYE QID PRN Budesonide 0.5 mg 06/10/17 19:00 06/18/17 08:44 Pulmicort Inhalation AEROSOL 0.5 mg RTBID RICHARD Administration Carvedilol 3.125 mg 06/12/17 17:47 06/18/17 08:18 Coreg PO 3.125 mg BIDWM RICHARD Administration Furosemide 80 mg 06/14/17 09:00 Lasix 80 Mg Tab PO DAILY RICHARD Gabapentin 300 mg 06/11/17 09:58 06/18/17 08:17 Neurontin PO 300 mg TID RICHARD Administration Lisinopril 2.5 mg 06/13/17 09:00 06/18/17 08:17 Prinivil PO 2.5 mg DAILY RICHARD Administration Metoclopramide HCl 5 mg 06/09/17 03:33 Reglan IVP Q6H PRN Rivaroxaban 20 mg 06/13/17 17:30 06/17/17 18:26 Xarelto PO 20 mg WS RICHARD Administration Senna/Docusate Sodium 2 tab 06/10/17 21:00 06/18/17 08:17 Senna Plus Tablet PO 2 tab BID RICHARD Administration Sertraline HCl 50 mg 06/10/17 09:00 06/18/17 08:17 Zoloft PO 50 mg DAILY RICHARD Administration Simvastatin 20 mg 06/09/17 21:00 06/17/17 20:51 Zocor PO 20 mg HS RICHARD Administration Sodium Chloride 10 - 80 ml 06/09/17 02:14 06/16/17 20:49 Iv Flush IVF 10 ml PRN PRN Administration Flushing Discontinued Medications Generic Name Dose Route Start Last Admin Trade Name Freq PRN Reason Stop Dose Admin Hydrocodone Bitart/Acetaminophen 1 tab 06/09/17 03:33 06/12/17 11:52 Butler 5/325 PO 1 tab Q6H PRN Administration Pain Acetazolamide 500 mg 06/11/17 09:59 06/11/17 11:18 Diamox PO 06/11/17 10:00 500 mg O ONE Administration Acetazolamide Sodium 250 mg 06/12/17 16:45 06/12/17 19:32 Diamox Inj IV Not Given DAILY RICHARD Albuterol Sulfate 7.5 mg 06/09/17 02:35 06/09/17 02:47 Proventil Neb (0.083%) AEROSOL 06/09/17 02:36 7.5 mg O ONE Administration Albuterol/Ipratropium 3 ml 06/09/17 02:14 06/09/17 02:28 Duoneb IH 06/09/17 02:15 3 ml ONCE ONE Administration Carvedilol 6.25 mg 06/12/17 17:30 06/12/17 18:17 Coreg PO Not Given BIDWM RICHARD Furosemide 80 mg 06/09/17 02:34 06/09/17 02:38 Lasix 100 Mg/10 Ml IVP 06/09/17 02:35 80 mg O ONE Administration Furosemide 60 mg 06/09/17 09:00 06/12/17 16:58 Lasix 40 Mg/4 Ml IVP Not Given Q6HR RICHARD Furosemide 80 mg 06/12/17 17:00 06/12/17 18:16 Lasix 80 Mg Tab PO Not Given 0900,1700 RICHARD Gabapentin 300 mg 06/10/17 21:00 06/10/17 21:41 Neurontin PO 300 mg HS RICHARD Administration Heparin Sodium (Beef Lung) 8,000 unit 06/11/17 15:30 06/11/17 16:12 Heparin Bolus IV 06/11/17 15:31 8,000 unit O ONE Administration Heparin Sodium (Porcine) 1 each 06/11/17 14:29 Pharmacy Consult - Heparin MC 06/11/17 14:30 ONE TIME ONE Amiodarone HCl 900 mg/ Sodium 500 mls @ 16.66 mls/hr 06/11/17 14:30 06/12/17 16:58 Chloride IV Infused .Q24H RICHARD Infusion 0.5 MG/MIN Amiodarone HCl 450 mg/ Sodium 250 mls @ 33.33 mls/hr 06/11/17 14:30 06/12/17 00:18 Chloride IV 06/11/17 20:30 Infused .[id number] RICHARD Infusion 1 MG/MIN Amiodarone HCl 150 mg/ Sodium 103 mls @ 618 mls/hr 06/11/17 14:29 06/11/17 15 :40 Chloride IV 06/11/17 14:38 Infused O ONE Infusion Heparin Sodium (Porcine) 20,000 unit in 500 mls @ 33 mls/hr 06/11/17 15:30 16:57 Heparin Drip IV Infused .[id number] RICHARD Titration Protocol Sodium Chloride 500 mls @ 250 mls/hr 06/12/17 19:45 06/12/17 21:50 Normal Saline IV 06/12/17 20:44 Infused .Q2H RICHARD Infusion Lisinopril 20 mg 06/09/17 10:45 06/12/17 11:43 Prinivil PO 20 mg DAILY RICHARD Administration Lisinopril 5 mg 06/12/17 17:30 04/03/18 18:17 Prinivil PO Not Given DAILY RICHARD Lorazepam 1 mg 06/09/17 17:15 06/11/17 20:59 Ativan PO 1 mg TID PRN Administration Anxiety Lorazepam 0.5 mg 06/13/17 17:39 06/15/17 08:43 Ativan PO 0.5 mg TID PRN Administration Anxiety Methylprednisolone Sodium Succinate 125 mg 06/09/17 02:14 06/09/17 02:34 Solu-Medrol IVP 06/09/17 02:15 125 mg O ONE Administration Methylprednisolone Sodium Succinate 40 mg 06/09/17 09:00 06/09/17 09:04 Solu-Medrol IM Not Given Q6HR COUNT INCLUDES THE [facility] Metolazone 5 mg 06/10/17 14:56 06/10/17 15:20 Zaroxolyn PO 06/10/17 14:57 5 mg O ONE Administration Metoprolol Tartrate 25 mg 06/09/17 17:30 06/12/17 11:42 Lopressor PO 25 mg BIDWM RICHARD Administration Pharmacy Consult each 06/15/17 04:01 Pharmacy Consult - Fall Risk 06/15/17 04:02 ONE TIME ONE Potassium Chloride 20 meq 06/14/17 14:39 06/14/17 14:58 K-Dur 20 Meq Tablet PO 06/14/17 14:40 20 meq O ONE Administration Senna/Docusate Sodium 1 tab 06/09/17 03:33 Senna Plus Tablet PO BID PRN Constipation - Constitutional no acute distress, obese, cooperative - Routine HEENT Exam Head: Present: normocephalic, atraumatic Eye: Present: EOMI, PERRL, periorbital swelling, periorbital tenderness ENT: Present: mucous membranes moist - Routine Neck Exam Present: supple, full ROM, trachea midline - Routine Respiratory Exam Present: decreased breath sounds. Absent: accessory muscle use, patient mechanically ventilated - Routine Cardiovascular Exam Present: RRR, S1, S2, no murmur - Routine Abdominal Exam Present: soft, normoactive bowel sounds - Routine Extremities Exam Present: no edema, non tender, full ROM - Routine Back/Spine/Pelvis Exam Back/Spine: Present: full ROM - Routine Skin Exam Present: intact, dry - Routine Neurological Exam Present: alert, oriented X3, CN II-XII intact - Routine Psychiatric Exam Present: normal affect, normal thought process Results - Laboratory Findings Laboratory: Laboratory Results - last 48 hr 06/16/17 06/16/17 06/16/17 13:04 15:54 20:38 WBC RBC Hgb Hct MCV MCH MCHC RDW Std Deviation Plt Count MPV Neutrophils % (Manual) Lymphocytes % (Manual) Monocytes % (Manual) Eosinophils % (Manual) Basophils % (Manual) Neutrophils # (Manual) Lymphocytes # (Manual) Monocytes # (Manual) Eosinophils # (Manual) Basophils # (Manual) RBC Morph Comment Turbidity Sodium Potassium Chloride Carbon Dioxide Anion Gap BUN Creatinine GFR Calculation BUN/Creatinine Ratio Glucose Glucometer 104 134 128 Calculated Osmolality Calcium Phosphorus Magnesium Icterus Index Albumin Specimen Hemolysis 06/17/17 06/17/17 06/17/17 06:15 07:25 11:41 WBC RBC Hgb Hct MCV MCH MCHC RDW Std Deviation Plt Count MPV Neutrophils % (Manual) Lymphocytes % (Manual) Monocytes % (Manual) Eosinophils % (Manual) Basophils % (Manual) Neutrophils # (Manual) Lymphocytes # (Manual) Monocytes # (Manual) Eosinophils # (Manual) Basophils # (Manual) RBC Morph Comment Turbidity < 20 Sodium 140 Potassium 3.6 Chloride 92 L D Carbon Dioxide 44 H* Anion Gap 4 L BUN 27.0 H Creatinine 1.2 GFR Calculation 64 BUN/Creatinine Ratio 23 Glucose 92 Glucometer 96 92 Calculated Osmolality 274 Calcium 9.4 Phosphorus 2.8 Magnesium 2.0 Icterus Index < 2 Albumin 3.6 Specimen Hemolysis < 15 06/17/17 06/17/17 06/17/17 14:25 20:17 20:45 WBC RBC Hgb Hct MCV MCH MCHC RDW Std Deviation Plt Count MPV Neutrophils % (Manual) Lymphocytes % (Manual) Monocytes % (Manual) Eosinophils % (Manual) Basophils % (Manual) Neutrophils # (Manual) Lymphocytes # (Manual) Monocytes # (Manual) Eosinophils # (Manual) Basophils # (Manual) RBC Morph Comment Turbidity Sodium Potassium Chloride Carbon Dioxide Anion Gap BUN Creatinine GFR Calculation BUN/Creatinine Ratio Glucose Glucometer 157 161 161 Calculated Osmolality Calcium Phosphorus Magnesium Icterus Index Albumin Specimen Hemolysis 06/18/17 06/18/17 06/18/17 04:48 05:16 05:16 WBC 7.8 RBC 4.54 Hgb 12.2 L Hct 41.3 MCV 91.0 MCH 26.9 MCHC 29.5 L RDW Std Deviation 55.2 H Plt Count 109 L MPV 10.7 Neutrophils % (Manual) 67.0 H Lymphocytes % (Manual) 22.0 L Monocytes % (Manual) 5.0 Eosinophils % (Manual) 5.0 H Basophils % (Manual) 1.0 Neutrophils # (Manual) 5.2 Lymphocytes # (Manual) 1.7 Monocytes # (Manual) 0.4 Eosinophils # (Manual) 0.4 Basophils # (Manual) 0.1 RBC Morph Comment Normal Turbidity < 20 Sodium 143 Potassium 4.8 D Chloride 96 L Carbon Dioxide 38 H Anion Gap 9 BUN 25.0 H Creatinine 1.0 D GFR Calculation 78 BUN/Creatinine Ratio 25 Glucose 128 H Glucometer 117 Calculated Osmolality 281 H Calcium 9.5 Phosphorus 3.9 Magnesium Icterus Index < 2 Albumin 3.7 Specimen Hemolysis 127 H - Diagnostic Findings Chest x-ray: image reviewed (Cardiomegaly, no infiltrates noted) Assessment and Plan - Assessment and Plan Chronic Hypoxic Respiratory Failure, likely with chronic Hypercapnic Failure COPD, unknown severity, no meds at home Systolic EF/Non ischemic Dilated cardiomyopathy - EF 10-15% - life vest atrial fibrillation MARGI - likely 2/2 diuresis Plan: Pt currently on O2 at 2L per NC, keep sats 90-95%. Shay bipap last noc (f12, 12/14 ), Vt 350's, would increase Ip to 12. ABG 7.33/79/65 06/15, has Chronic hypercapnic failure secondary to COPD. Requires a home vent to mask to prevent exacerbation, secondary to worsening hypercapnic failure, or CHF. Bipap ruled out. WBC normal, afebrile, CXR shows cardiomegaly, no infiltrates. Continue on Bt's with pulmicort BID and A/A QID, on diamox and off lasix, cont fld restriction, Cr normal today. Follow closely. Now with medicare in place, would benefit from nebulized tx's OP with pulmicort BID and A/A QID. Will need OP f/u with complete PFT to address COPD severity. Hopefully home soon - Time Spent With Patient Total time spent is greater than 50% in coordination of care (as documented) at patient's floor/unit and/or counseling patient: less than 15 minutes
--- NOTE | 2017-06-18 09:40 | Progress Note ---
- Date 06/18/17 Subjective: Gray is still complaining of a lot of facial pain even though visibly, the swelling has decreased and he is now able to open his left eye without difficulty. It still hurts to eat, but he is nonetheless eating well. He denies any chest pain. He denies feeling short of breath at rest. He slept well last night, and even though he didn't want to use the BiPAP, his son put it on and encouraged him to use it. He has not had any nausea or vomiting. He had a bowel movement this am. His son reports that he still looks "like crap". Objective Vital signs: Temperature 96.4 F L 06/18/17 08:00 Pulse Rate 81 06/18/17 08:00 Respiratory Rate 24 06/18/17 08:46 Blood Pressure 126/81 06/18/17 08:00 Pulse Oximetry 95 06/18/17 08:46 Height/Weight/BMI: Height 1.78 m Weight 133.2 kg Body Mass Index 44.4 - Constitutional Present: well nourished, well developed, obese - Routine HEENT Exam Eye: Present: PERRL, periorbital ecchymosis (left), periorbital swelling ( improving to left eye), periorbital tenderness. Absent: conjunctival icterus ENT: Present: mucous membranes moist Comments: Left maxillofacial swelling and ecchymosis has improved. - Routine Respiratory Exam Present: decreased breath sounds - Routine Cardiovascular Exam Present: RRR, S1, S2 - Routine Abdominal Exam Present: soft, normoactive bowel sounds, non tender - Routine Extremities Exam Present: edema (trace to 1+ bilateral lower extremities) - Routine Skin Exam Present: dry, warm - Routine Neurological Exam Present: alert, oriented X3, normal speech - Routine Psychiatric Exam Present: cooperative Results - Labs CBC & Chem 7: 06/18/17 05:16 06/18/17 05:16 Assessment and Plan (1) Dilated cardiomyopathy Problem details: EF 10-15% with 3/4 diastolic dysfunction on 06/11/17 EF 30% on TTE done 10/2015; global hypokinesis and dilated LV; EF 55% 09/2016 Current visit: No Status: Acute (2) COPD, severe Problem details: on 3L NC chronically at home Current visit: No Status: Chronic (3) Acute and chronic respiratory failure with hypoxia Problem details: Chronic secondary to COPD, acute likely a combination of COPD exacerbation and volume overload/systolic heart failure exacerbation Current visit: No Status: Acute Assessment and Plan: Assessment Acute on chronic CHF Volume overload-improved Dilated cardiomyopathy with EF of 10-15% - Life Vest per cardiology Chronic hypercarbic/hypoxic respiratory failure-BiPAP as tolerated with sleep Hypertension-pressure borderline low COPD Obstructive sleep apnea Diabetes mellitus, type II-diet controlled-A1C 6.1 05/01/17 Peripheral neuropathy Morbid obesity Depression/anxiety Fall versus syncope with head injury-06/12/17 Facial trauma due to fall Minimally depressed left orbital fracture sustained 06/12/17 Hypotension-06/13/15 Acute kidney injury - resolved Plan He tolerated BiPAP last night. Pulmonology is recommending nebulized treatments with Pulmicort and DuoNeb and a home vent to mask. They will be working on securing this equipment for him prior to discharge. CO2 decreasing, and is down to 38 today. He continues on Diamox twice a day. Furosemide is still on hold. Continue fluid restriction. Blood pressure has been stable. Left periorbital swelling and ecchymosis and left maxillofacial swelling is improving. PT and OT evaluations are pending. The patient's son asks appropriate questions regarding exercises he could do at home to help strengthen his heart. Discussed with Parisa Garcia APRN. 06/18/2017-6:12 PM-I reviewed this chart, the patient history, and the TECHNICAL SUPPORT ASSISTANT's/PA 's documented findings as above. We discussed and formulated the assessment and plan as above with the additions below.-Dr. Mendoza Patient was seen this evening the committee by his son. The patient was initially sleeping but awakened easily. He states he's feeling okay. He is not having any pain at this time. He denies any shortness of breath. He states he is walking better. On exam he is alert and in no acute distress. He continues to have swelling and bruising around his left eye, but this is improving. Chest is clear to auscultation. Cardiovascular reveals a regular rate and rhythm. Abdomen is soft , obese and nontender. Extremities reveal trace to +1 pretibial edema. Impression and plan Acute on chronic CHF-improving. Chronic hypercarbia/hypoxia-tolerating weaning of O2. Continue BiPAP. Continue on Diamox. CO2 is decreasing. Continue with LifeVest regarding dilated cardiomyopathy. DVT Prophylaxis: Xarelto Resuscitation Status: Full Code - Physician Narrative Narrative: Date: 06/18/17 Time: 0934 Hospital Course Summary Disclaimer: The visit summary below is not to be considered part of the above Progress Note. Hospital Course: 06/09/17 Diuresis initiated overnight and will be continued with IV Lasix. Weight is up 17 kg in 5 weeks consistent with describe symptoms. Monitor electrolytes in the event supplemental potassium or magnesium becomes necessary. Continue supplemental oxygen. Resume metoprolol, lisinopril, and simvastatin as previously prescribed. Anticipate echocardiogram early next week. Continue Accu-Cheks, converted to diabetic diet with fluid restriction of 1800 mL per 24 hours. Albuterol/Atrovent treatments ordered 4 times daily and when necessary. Patient has requested lorazepam "that he takes at home" per nursing report which will require further clarification as this was neither prescribed at discharge nor reported by patient when I spoke with him. Sertraline was prescribed for his chronic anxiety/depressive disorder and will be resumed. 06/10/17 Currently on Lasix 60 mg IV every 6 hours without significant results. Will add one time dose of metolazone 5 mg by mouth now. Down 2.6 kilograms since admission. Echocardiogram early next week. Accu-Cheks ordered. Continue diabetic diet with fluid restriction of 1800 mL per 24 hours. Continue DuoNeb treatments. Add Pulmicort for wheezing. Add Neurontin for his neuropathic pain. Start at 300 mg daily and increase as tolerated. 06/11/17 Diamox 500mg po x 1 for CO2 retention. Currently on Lasix 60 mg IV every 6 hours. Had one time dose of metolazone 5 mg po yesterday with good results. Weight down almost 6 kilograms since admission. Tachycardic since last evening despite metoprolol 25 BID--> atrial flutter with variable block. Echocardiogram with severely reduced ejection fraction of approximate 10-15% and akinetic mid apical anterior, mid apical anteroseptal, and mid apical anterolateral wall. 3/4 diastolic dysfunction. Cardiology consulted for altered rhythm and cardiomyopathy-amiodarone and heparin drips initiated. Neurontin added yesterday for his neuropathic pain. Increase to TID. Consult OT/PT. Maintaining at home O2 at 3L; known diagnosis VALARIE, overnight oximetry tonight prior to trial of CPAP. 4/3/18 Patient hypotensive this afternoon corresponding to fall or syncopal event with facial injuries. For CT head and cervical spine; being placed in cervical collar at this time. Diuretics on hold, if blood pressure remains low small fluid bolus will be given. Carvedilol and lisinopril doses decreased by 50% pending stabilization of blood pressure. Discussed with Dr. Merchant after initial report of hypotension however it appeared to be artifactual at that time. Patient was on heparin earlier in the day; nursing reports heparin was off 30- 60 minutes prior to fall. Brief nasal bleeding reported immediately after fall. Successfully cardioverted to sinus rhythm earlier today-remains in sinus rhythm. Dr. Merchant has discussed Life Vest with patient in addition need for aggressive medical management due to severity of cardiac disease. Patient critically [id number] for complications of unstable blood pressure/ head injury. Overnight oximetry demonstrated moderate interference; oxygen saturation was < 89% for 10 minutes (patient was on 3 L oxygen by nasal cannula until 0230, 2 L from [id number], then CPAP from [id number]. Lowest oxygen saturation reported was 79% and the longest desaturation was 57 seconds. [place] pattern evident on tracing. Patient did not tolerate standard face mask with CPAP last night-nasal mask to be tried tonight. 06/13/17 Patient remains mildly hypotensive this today; diuretics remain on hold. Gray received 500 mL fluid yesterday evening due to hypotension. Lisinopril and carvedilol dose is decreased. Due to severity of cardiomyopathy will need to resume medications as soon as blood pressure permits. Events of yesterday evening reviewed with cardiology; patient remains in sinus rhythm following cardioversion yesterday. Patient did not try CPAP last night due to facial injuries but is willing to try as tolerated today and tonight. Reminded to use CPAP both overnight and with daytime naps. Creatinine up today-1.9; BUN/creatinine were slightly elevated yesterday morning reflecting diuresis but worsened following hypertension yesterday. Repeat labs now. If creatinine climbing further will replace additional volume this evening. Patient remains at high risk for complications due to combined cardiomyopathy, nocturnal hypoxia, and hemodynamic instability. 06/14/17 BP still hypotensive occasionally but improving from yesterday. Cont low-dose amlodipine and carvedilol. diuretics on hold and acetazolamide has been started for increasing CO2 levels. Encourage CPAP use. Na low but stable at 133. K 3.5 -- replaced orally. BUN up slightly to 41; creatinine decreased from 1.9 to 1.8. Will obtain maxillofacial CT for left mandibular pain and trismus. 06/15/17 CO2 continues to climb despite starting acetazolamide yesterday. Today it is 47. He was more somnolent this morning and an ABG was obtained, showing a pH of 7.34, PCO2 79, PO2 65, and H2O3 of 42 on 3 L. He is unable to tolerate CPAP via mask or nasal cannula because of facial trauma. Dr. Rebolledo has been consulted to help manage his COPD and hypercarbic/hypoxic respiratory failure in the setting of facial trauma. Parisa Garcia APRN recommends to decrease oxygen for a goal saturation of 90%. Blood pressure currently stable though he was hypotensive late last evening at 87/64. Continue low-dose amlodipine and carvedilol, managed per cardiology. Anticoagulation d/w Caryl Salas APRN: likely will change to Coumadin because of cost of Xarelto. Sodium and potassium have both been corrected. Renal function is improving and diuretics remain on hold. BUN is 47 and creatinine is 1.3. Maxillofacial CT yesterday revealed a mildly depressed left orbital floor fracture with extensive subcutaneous emphysema. He is able to slightly open his eye today. 06/16/17 CO2 remains high, on acetazolamide 48 hours. ABG yesterday with pH of 7.34, PCO2 79, PO2 65, and H2O3 of 42 on 3 L. BiPAP reinitiated this morning with fullface mask and patient is at least tolerating for short time periods; reapplied this afternoon and was on again when I last walked by the room. Patient continues to sleep much of the day. Blood pressure has generally been stable although last recorded pressure was down. Carvedilol and lisinopril doses decreased and furosemide on hold. Attempting to minimize narcotics and alprazolam due to sedation/CO2 retention. Continue to monitor eye movements and visual symptoms. At present formal ophthalmology evaluation has not been pursued but may be needed if diplopia persists. 06/17/17 He tolerated BiPAP last night. Pulmonology is recommending nebulized treatments with Pulmicort and DuoNeb and a home vent to mask. They will be working on securing this equipment for him prior to discharge. CO2 decreasing, and is down to 38 today. He continues on Diamox twice a day. Furosemide is still on hold. Continue fluid restriction. Left periorbital swelling and ecchymosis and left maxillofacial swelling is improving. PT and OT evaluations are pending. The patient's son asks appropriate questions regarding exercises he could do at home to help strengthen his heart.
--- NOTE | 2017-06-18 10:25 | XRay Report ---
Indication: LLL atelectasis PROCEDURE: XR chest 1V: Encounter: Initial Comparison: June 16, 2017 Findings: Increasing interstitial prominence compared to the prior study. Left lower lobe consolidation has improved. No pneumothorax or definite pleural effusion. Cardiac silhouette remains enlarged. Mediastinal contours are stable. Impression: Increasing interstitial prominence probably representing mild edema. .
--- NOTE | 2017-06-18 13:07 | Cardiology Progress Note ---
<Caryl Salas M - Last Filed: 06/19/17 07:37> Subjective Principal diagnosis: Severe Non-ischemic Dialated CM, Atrial fibrillation Interval history: Gray is seen in follow up for NI dilated CM, A Fib. He is in no acute distress on 2L/NC O2. Was able to wear Bi-Pap some last night despite facial trauma. He denies chest pain or pressure, palpitations, dyspnea or dizziness. Exam Vital signs: Temperature 96.4 F L 06/18/17 08:00 Pulse Rate 81 06/18/17 08:00 Respiratory Rate 20 06/18/17 11:40 Blood Pressure 126/81 06/18/17 08:00 Pulse Oximetry 95 06/18/17 08:46 Inpatient Medications: Generic Name Dose Route Start Last Admin Trade Name Freq PRN Reason Stop Dose Admin Acetaminophen 650 mg 06/10/17 14:38 06/15/17 20:18 Tylenol PO 650 mg Q5H PRN Administration Discomfort Hydrocodone Bitart/Acetaminophen 1 - 2 tab 06/12/17 19:34 06/18/17 08:17 [place] 5/325 PO 1 tab Q4H PRN Administration Pain Acetazolamide 250 mg 06/14/17 10:16 06/18/17 08:17 Diamox PO 250 mg BID RICHARD Administration Albuterol/Ipratropium 3 ml 06/09/17 11:00 06/18/17 11:39 Duoneb AEROSOL 3 ml RTQID RICHARD Administration Albuterol/Ipratropium 3 ml 06/09/17 10:34 06/17/17 04:59 Duoneb AEROSOL 3 ml QID PRN Administration Shortness of air/wheezing Alprazolam 0.5 mg 06/15/17 10:52 06/18/17 00:15 Xanax PO 0.5 mg TID PRN Administration Anxiety Amiodarone HCl 200 mg 06/12/17 16:45 06/18/17 08:17 Pacerone PO 200 mg DAILY RICHARD Administration Artificial Tears 1 drop 06/14/17 14:17 Refresh Classic EACH EYE QID PRN Budesonide 0.5 mg 06/10/17 19:00 06/18/17 08:44 Pulmicort Inhalation AEROSOL 0.5 mg RTBID RICHARD Administration Carvedilol 3.125 mg 06/12/17 17:47 06/18/17 08:18 Coreg PO 3.125 mg BIDWM RICHARD Administration Furosemide 80 mg 06/14/17 09:00 Lasix 80 Mg Tab PO DAILY RICHARD Gabapentin 300 mg 06/11/17 09:58 06/18/17 08:17 Neurontin PO 300 mg TID RICHARD Administration Lisinopril 2.5 mg 06/13/17 09:00 06/18/17 08:17 Prinivil PO 2.5 mg DAILY RICHARD Administration Metoclopramide HCl 5 mg 06/09/17 03:33 Reglan IVP Q6H PRN Rivaroxaban 20 mg 06/13/17 17:30 06/17/17 18:26 Xarelto PO 20 mg WS RICHARD Administration Senna/Docusate Sodium 2 tab 06/10/17 21:00 06/18/17 08:17 Senna Plus Tablet PO 2 tab BID RICHARD Administration Sertraline HCl 50 mg 06/10/17 09:00 06/18/17 08:17 Zoloft PO 50 mg DAILY RICHARD Administration Simvastatin 20 mg 06/09/17 21:00 06/17/17 20:51 Zocor PO 20 mg HS RICHARD Administration Sodium Chloride 10 - 80 ml 06/09/17 02:14 06/16/17 20:49 Iv Flush IVF 10 ml PRN PRN Administration Flushing Discontinued Medications Generic Name Dose Route Start Last Admin Trade Name Freq PRN Reason Stop Dose Admin Hydrocodone Bitart/Acetaminophen 1 tab 06/09/17 03:33 06/12/17 11:52 [place] 5/325 PO 1 tab Q6H PRN Administration Pain Acetazolamide 500 mg 06/11/17 09:59 06/11/17 11:18 Diamox PO 06/11/17 10:00 500 mg O ONE Administration Acetazolamide Sodium 250 mg 06/12/17 16:45 06/12/17 19:32 Diamox Inj IV Not Given DAILY RICHARD Albuterol Sulfate 7.5 mg 06/09/17 02:35 06/09/17 02:47 Proventil Neb (0.083%) AEROSOL 06/09/17 02:36 7.5 mg O ONE Administration Albuterol/Ipratropium 3 ml 06/09/17 02:14 06/09/17 02:28 Duoneb IH 06/09/17 02:15 3 ml ONCE ONE Administration Carvedilol 6.25 mg 06/12/17 17:30 06/12/17 18:17 Coreg PO Not Given BIDWM RICHARD Furosemide 80 mg 06/09/17 02:34 06/09/17 02:38 Lasix 100 Mg/10 Ml IVP 06/09/17 02:35 80 mg O ONE Administration Furosemide 60 mg 06/09/17 09:00 06/12/17 16:58 Lasix 40 Mg/4 Ml IVP Not Given Q6HR RICHARD Furosemide 80 mg 06/12/17 17:00 06/12/17 18:16 Lasix 80 Mg Tab PO Not Given 0900,1700 RICHARD Gabapentin 300 mg 06/10/17 21:00 06/10/17 21:41 Neurontin PO 300 mg HS RICHARD Administration Heparin Sodium (Beef Lung) 8,000 unit 06/11/17 15:30 06/11/17 16:12 Heparin Bolus IV 06/11/17 15:31 8,000 unit O ONE Administration Heparin Sodium (Porcine) 1 each 06/11/17 14:29 Pharmacy Consult - Heparin 06/11/17 14:30 ONE TIME ONE Amiodarone HCl 900 mg/ Sodium 500 mls @ 16.66 mls/hr 06/11/17 14:30 06/12/17 16:58 Chloride IV Infused .Q24H RICHARD Infusion 0.5 MG/MIN Amiodarone HCl 450 mg/ Sodium 250 mls @ 33.33 mls/hr 06/11/17 14:30 06/12/17 00:18 Chloride IV 06/11/17 20:30 Infused .[id number] RICHARD Infusion 1 MG/MIN Amiodarone HCl 150 mg/ Sodium 103 mls @ 618 mls/hr 06/11/17 14:29 06/11/17 15 :40 Chloride IV 06/11/17 14:38 Infused O ONE Infusion Heparin Sodium (Porcine) 20,000 unit in 500 mls @ 33 mls/hr 06/11/17 15:30 16:57 Heparin Drip IV Infused .[id number] RICHARD Titration Protocol Sodium Chloride 500 mls @ 250 mls/hr 06/12/17 19:45 06/12/17 21:50 Normal Saline IV 06/12/17 20:44 Infused .Q2H RICHARD Infusion Lisinopril 20 mg 06/09/17 10:45 06/12/17 11:43 Prinivil PO 20 mg DAILY RICHARD Administration Lisinopril 5 mg 06/12/17 17:30 06/12/17 18:17 Prinivil PO Not Given DAILY RICHARD Lorazepam 1 mg 06/09/17 17:15 06/11/17 20:59 Ativan PO 1 mg TID PRN Administration Anxiety Lorazepam 0.5 mg 06/13/17 17:39 06/15/17 08:43 Ativan PO 0.5 mg TID PRN Administration Anxiety Methylprednisolone Sodium Succinate 125 mg 06/09/17 02:14 06/09/17 02:34 Solu-Medrol IVP 06/09/17 02:15 125 mg O ONE Administration Methylprednisolone Sodium Succinate 40 mg 06/09/17 09:00 06/09/17 09:04 Solu-Medrol IM Not Given Q6HR [facility] Metolazone 5 mg 06/10/17 14:56 06/10/17 15:20 Zaroxolyn PO 06/10/17 14:57 5 mg O ONE Administration Metoprolol Tartrate 25 mg 06/09/17 17:30 06/12/17 11:42 Lopressor PO 25 mg BIDWM RICHARD Administration Pharmacy Consult each 06/15/17 04:01 Pharmacy Consult - Fall Risk 06/15/17 04:02 ONE TIME ONE Potassium Chloride 20 meq 06/14/17 14:39 06/14/17 14:58 K-Dur 20 Meq Tablet PO 06/14/17 14:40 20 meq O ONE Administration Senna/Docusate Sodium 1 tab 06/09/17 03:33 Senna Plus Tablet PO BID PRN Constipation - Constitutional no acute distress, morbidly obese, cooperative - Routine HEENT Exam Head: Present: normocephalic Eye: Present: periorbital ecchymosis, periorbital swelling, periorbital tenderness ENT: Present: mucous membranes moist - Routine Neck Exam Absent: JVD, carotid bruit - Routine Chest/Breast/Axilla Exam Chest wall: Absent: tenderness - Routine Respiratory Exam Present: decreased breath sounds. Absent: dyspnea - Routine Cardiovascular Exam Present: RRR, S1, S2, no murmur - Routine Abdominal Exam Present: soft, non tender - Routine Extremities Exam Present: edema - Routine Skin Exam Present: intact, dry, warm, ecchymosis (left periorbital) - Routine Neurological Exam Present: alert, oriented X3 - Routine Psychiatric Exam Present: normal affect Results 06/18/17 05:16 06/19/17 04:25 CBC 06/18/17 Range/Units 05:16 WBC 7.8 (4.5-11.0) T/MM3 RBC 4.54 (4.50-5.90) M/MM3 Hgb 12.2 L (13.5-17.5) GM/DL Hct 41.3 (41-53) % Plt Count 109 L (130-400) T/MM3 Comprehensive Metabolic Panel 06/18/17 Range/Units 05:16 Sodium 143 (134-144) MEQ/L Potassium 4.8 D (3.6-5) MEQ/L Chloride 96 L (98-107) MEQ/L Carbon Dioxide 38 H (22-30) MEQ/L BUN 25.0 H (9-20) MG/DL Creatinine 1.0 D (0.8-1.5) mg/dL Glucose 128 H (75-110) MG/DL Calcium 9.5 (8.4-10.2) MG/DL Albumin 3.7 (3.5-5.0) g/dL Intake and Output 06/17/17 06/18/17 06/18/17 22:59 06:59 14:59 Intake Total 200 / 200 50 / 50 Output Total 200 / 200 1000 / 1000 350 / 350 Balance 0 / 0 -950 / -950 -350 / -350 Intake: Oral 200 / 200 50 / 50 Output: Urine 200 / 200 1000 / 1000 350 / 350 Other: Urine Appearance Clear Clear Clear Urine Color Yellow Yellow Yellow Urine Odor Normal Normal Normal Stool Color Brown Stool Consistency Soft Formed Size of Bowel Movement Large # Voids 1 1 # Bowel Movements 1 Weight 293 lb 10.491 oz Patient Weight 06/19/17 06:59 Weight 293 lb 10.491 oz - Imaging and Cardiology Imaging & Cardiology Narrative: Date of Exam: 06/18/17 Ordering Provider: Jorden Rebolledo MD Type of Exam(s): XR chest 1V Reason for Exam(s): LLL atelectasis Indication: LLL atelectasis PROCEDURE: XR chest 1V: Encounter: Initial Comparison: June 16, 2017 Findings: Increasing interstitial prominence compared to the prior study. Left lower lobe consolidation has improved. No pneumothorax or definite pleural effusion. Cardiac silhouette remains enlarged. Mediastinal contours are stable. Impression: Increasing interstitial prominence probably representing mild edema. 06/18/17 13:08 Assessment and Plan - Assessment and Plan (1) Dilated cardiomyopathy Problem details: EF 10-15% with 3/4 diastolic dysfunction on 06/11/17 EF 30% on TTE done 10/2015; global hypokinesis and dilated LV; EF 55% 09/2016 Current visit: No Status: Acute (2) Hypertension Problem details: Off all medications for > 6 months, uncontrolled Current visit: No Status: Acute (3) Acute and chronic respiratory failure with hypoxia Problem details: Chronic secondary to COPD, acute likely a combination of COPD exacerbation and volume overload/systolic heart failure exacerbation Current visit: No Status: Acute (4) Anxiety Problem details: Severe and chronic, untreated, exacerbated by dyspnea Current visit: No Status: Acute (5) Acute chronic obstructive pulmonary disease with respiratory distress Current visit: Yes Status: Acute (6) COPD exacerbation Current visit: No Status: Acute (7) Congestive heart failure Current visit: Yes Status: Acute (8) Abdominal wall cellulitis Current visit: No Status: Acute - Assessment and Plan Atrial flutter with variable block Acute on Chronic systolic heart failure Medical and Lifestyle Non-Compliance Morbid Obesity Severe COPD Acute on chronic hypoxic respiratory failure 06/11/2017 Start IV Amiodarone and IV Heparin Will consider DCCV in AM if patient does not convert to NSR Agree with aggressive IV diuresis Patient's EF has decreased and now at approx 15%. His last HC 2014 revealing no significant CAD Likely the decreased EF is due to his arrhythmia We will attempt to regain NSR in an effort to improve his cardiac output as much as possible Continue B-Debbie and MANI-I NPO at midnight in the event we need to proceed with his JANEEN and DCCV This patient may need a Life Vest - will need to assess for compliance before placing the vest 06/12/2017 Patient had a successful DCCV into NSR today We will start him on Xarelto 20mg one tablet daily Patient now has Disability Medicare Insurance and Medicaid is pending Patient wants a Life vest - order has been put in place He understands the importance of compliance He said the only reason he was not compliant was due to financial reasons - "just did not have the money" We will change IV Lasix to oral Lasix 80mg po BID and start Diamox IV 250mg daily in an effort to improve his metabolic alkalosis Change to oral Amiodarone 200mg one tablet daily Patient will need Coreg, Lisinopril, Xarelto upon discharge patient will need to be on a 2 gram sodium restriction and a 2 Liter fluid restriction daily He will need to be followed in our clinic regularly to follow his CHF Patient's EF approx 10 to 15% 06/13/17 Remains hypotensive. - Agree with decreased doses of Coreg and Lisinopril if tolerates - Hold diuretic today, change to daily tomorrow. 06/14/17 Continue to hold Lasix, Continue Diamox - Consider Coumadin instead of Xarelto due to financial cost. 06/15/17 PCO2 79 on ABG, Continue Diamox, refuses Bi-Pap Scr improved, 1.3 today from 1.8 yesterday Will provide samples and discount card for Xarelto on discharge if decided to stay on Xarelto 06/18/17 Weight up 3 pounds, B/P stable, Scr stable - Change Lasix 80mg daily (which is on hold) to 40mg bid, start this afternoon - Monitor B/P, renal and electrolytes Hospital Course Summary Disclaimer: The visit summary below is not to be considered part of the above Progress Note. Hospital Course: 06/09/17 Diuresis initiated overnight and will be continued with IV Lasix. Weight is up 17 kg in 5 weeks consistent with describe symptoms. Monitor electrolytes in the event supplemental potassium or magnesium becomes necessary. Continue supplemental oxygen. Resume metoprolol, lisinopril, and simvastatin as previously prescribed. Anticipate echocardiogram early next week. Continue Accu-Cheks, converted to diabetic diet with fluid restriction of 1800 mL per 24 hours. Albuterol/Atrovent treatments ordered 4 times daily and when necessary. Patient has requested lorazepam "that he takes at home" per nursing report which will require further clarification as this was neither prescribed at discharge nor reported by patient when I spoke with him. Sertraline was prescribed for his chronic anxiety/depressive disorder and will be resumed. 06/10/17 Currently on Lasix 60 mg IV every 6 hours without significant results. Will add one time dose of metolazone 5 mg by mouth now. Down 2.6 kilograms since admission. Echocardiogram early next week. Accu-Cheks ordered. Continue diabetic diet with fluid restriction of 1800 mL per 24 hours. Continue DuoNeb treatments. Add Pulmicort for wheezing. Add Neurontin for his neuropathic pain. Start at 300 mg daily and increase as tolerated. 06/11/17 Diamox 500mg po x 1 for CO2 retention. Currently on Lasix 60 mg IV every 6 hours. Had one time dose of metolazone 5 mg po yesterday with good results. Weight down almost 6 kilograms since admission. Tachycardic since last evening despite metoprolol 25 BID--> atrial flutter with variable block. Echocardiogram with severely reduced ejection fraction of approximate 10-15% and akinetic mid apical anterior, mid apical anteroseptal, and mid apical anterolateral wall. 3/4 diastolic dysfunction. Cardiology consulted for altered rhythm and cardiomyopathy-amiodarone and heparin drips initiated. Neurontin added yesterday for his neuropathic pain. Increase to TID. Consult OT/PT. Maintaining at home O2 at 3L; known diagnosis VALARIE, overnight oximetry tonight prior to trial of CPAP. 06/12/17 Patient hypotensive this afternoon corresponding to fall or syncopal event with facial injuries. For CT head and cervical spine; being placed in cervical collar at this time. Diuretics on hold, if blood pressure remains low small fluid bolus will be given. Carvedilol and lisinopril doses decreased by 50% pending stabilization of blood pressure. Discussed with Dr. Merchant after initial report of hypotension however it appeared to be artifactual at that time. Patient was on heparin earlier in the day; nursing reports heparin was off 30- 60 minutes prior to fall. Brief nasal bleeding reported immediately after fall. Successfully cardioverted to sinus rhythm earlier today-remains in sinus rhythm. Dr. Merchant has discussed Life Vest with patient in addition need for aggressive medical management due to severity of cardiac disease. Patient critically [id number] for complications of unstable blood pressure/ head injury. Overnight oximetry demonstrated moderate interference; oxygen saturation was < 89% for 10 minutes (patient was on 3 L oxygen by nasal cannula until 0230, 2 L from 8327-0125, then CPAP from [id number]. Lowest oxygen saturation reported was 79% and the longest desaturation was 57 seconds. [place] pattern evident on tracing. Patient did not tolerate standard face mask with CPAP last night-nasal mask to be tried tonight. <ShondaLee - Last Filed: 06/19/17 13:00> Exam Vital signs: Temperature 98.2 F 06/19/17 07:54 Pulse Rate 81 06/19/17 08:00 Respiratory Rate 18 06/19/17 11:05 Blood Pressure 153/97 H 06/19/17 07:54 Pulse Oximetry 93 06/19/17 11:05 Inpatient Medications: Generic Name Dose Route Start Last Admin Trade Name Freq PRN Reason Stop Dose Admin Acetaminophen 650 mg 06/10/17 14:38 06/15/17 20:18 Tylenol PO 650 mg Q5H PRN Administration Discomfort Hydrocodone Bitart/Acetaminophen 1 - 2 tab 06/12/17 19:34 06/19/17 08:56 [place] 5/325 PO 1 tab Q4H PRN Administration Pain Acetazolamide 250 mg 06/14/17 10:16 06/19/17 08:55 Diamox PO 250 mg BID RICHARD Administration Albuterol/Ipratropium 3 ml 06/09/17 11:00 06/19/17 11:05 Duoneb AEROSOL 3 ml RTQID RICHARD Administration Albuterol/Ipratropium 3 ml 06/09/17 10:34 06/17/17 04:59 Duoneb AEROSOL 3 ml QID PRN Administration Shortness of air/wheezing Alprazolam 0.5 mg 06/15/17 10:52 06/19/17 10:00 Xanax PO 0.5 mg TID PRN Administration Anxiety Amiodarone HCl 200 mg 06/12/17 16:45 06/19/17 08:55 Pacerone PO 200 mg DAILY RICHARD Administration Artificial Tears 1 drop 06/14/17 14:17 Refresh Classic EACH EYE QID PRN Carvedilol 3.125 mg 06/12/17 17:47 06/19/17 08:55 Coreg PO 3.125 mg BIDWM RICHARD Administration Furosemide 40 mg 06/19/17 09:00 06/19/17 08:55 Lasix 40 Mg Tab PO 40 mg DAILY RICHARD Administration Gabapentin 300 mg 06/11/17 09:58 06/19/17 08:55 Neurontin PO 300 mg TID RICHARD Administration Lisinopril 2.5 mg 06/13/17 09:00 06/19/17 08:55 Prinivil PO 2.5 mg DAILY RICHARD Administration Metoclopramide HCl 5 mg 06/09/17 03:33 Reglan IVP Q6H PRN Rivaroxaban 20 mg 06/13/17 17:30 06/18/17 18:10 Xarelto PO 20 mg WS RICHARD Administration Senna/Docusate Sodium 2 tab 06/10/17 21:00 06/19/17 08:56 Senna Plus Tablet PO 2 tab BID RICHARD Administration Sertraline HCl 50 mg 06/10/17 09:00 06/19/17 08:56 Zoloft PO 50 mg DAILY RICHARD Administration Simvastatin 20 mg 06/09/17 21:00 06/18/17 20:55 Zocor PO 20 mg HS RICHARD Administration Sodium Chloride 10 - 80 ml 06/09/17 02:14 06/16/17 20:49 Iv Flush IVF 10 ml PRN PRN Administration Flushing Discontinued Medications Generic Name Dose Route Start Last Admin Trade Name Freq PRN Reason Stop Dose Admin Hydrocodone Bitart/Acetaminophen 1 tab 06/09/17 03:33 06/12/17 11:52 [place] 5/325 PO 1 tab Q6H PRN Administration Pain Acetazolamide 500 mg 06/11/17 09:59 06/11/17 11:18 Diamox PO 06/11/17 10:00 500 mg O ONE Administration Acetazolamide Sodium 250 mg 06/12/17 16:45 06/12/17 19:32 Diamox Inj IV Not Given DAILY RICHARD Albuterol Sulfate 7.5 mg 06/09/17 02:35 06/09/17 02:47 Proventil Neb (0.083%) AEROSOL 06/09/17 02:36 7.5 mg O ONE Administration Albuterol/Ipratropium 3 ml 06/09/17 02:14 06/09/17 02:28 Duoneb IH 06/09/17 02:15 3 ml ONCE ONE Administration Budesonide 0.5 mg 06/10/17 19:00 06/18/17 20:20 Pulmicort Inhalation AEROSOL 0.5 mg RTBID RICHARD Administration Carvedilol 6.25 mg 06/12/17 17:30 06/12/17 18:17 Coreg PO Not Given BIDWM RICHARD Furosemide 80 mg 06/09/17 02:34 06/09/17 02:38 Lasix 100 Mg/10 Ml IVP 06/09/17 02:35 80 mg O ONE Administration Furosemide 60 mg 06/09/17 09:00 06/12/17 16:58 Lasix 40 Mg/4 Ml IVP Not Given Q6HR RICHARD Furosemide 80 mg 06/12/17 17:00 06/12/17 18:16 Lasix 80 Mg Tab PO Not Given 0900,1700 RICHARD Furosemide 80 mg 06/14/17 09:00 Lasix 80 Mg Tab PO DAILY RICHARD Furosemide 40 mg 06/18/17 13:15 06/18/17 18:10 Lasix 40 Mg Tab PO 40 mg 0900,1700 RICHARD Administration Gabapentin 300 mg 06/10/17 21:00 06/10/17 21:41 Neurontin PO 300 mg HS RICHARD Administration Heparin Sodium (Beef Lung) 8,000 unit 06/11/17 15:30 06/11/17 16:12 Heparin Bolus IV 06/11/17 15:31 8,000 unit O ONE Administration Heparin Sodium (Porcine) 1 each 06/11/17 14:29 Pharmacy Consult - Heparin 06/11/17 14:30 ONE TIME ONE Amiodarone HCl 900 mg/ Sodium 500 mls @ 16.66 mls/hr 06/11/17 14:30 06/12/17 16:58 Chloride IV Infused .Q24H RICHARD Infusion 0.5 MG/MIN Amiodarone HCl 450 mg/ Sodium 250 mls @ 33.33 mls/hr 06/11/17 14:30 06/12/17 00:18 Chloride IV 06/11/17 20:30 Infused .[id number] RICHARD Infusion 1 MG/MIN Amiodarone HCl 150 mg/ Sodium 103 mls @ 618 mls/hr 06/11/17 14:29 06/11/17 15 :40 Chloride IV 06/11/17 14:38 Infused O ONE Infusion Heparin Sodium (Porcine) 20,000 unit in 500 mls @ 33 mls/hr 06/11/17 15:30 16:57 Heparin Drip IV Infused .[id number] RICHARD Titration Protocol Sodium Chloride 500 mls @ 250 mls/hr 06/12/17 19:45 06/12/17 21:50 Normal Saline IV 06/12/17 20:44 Infused .Q2H RICHARD Infusion Lisinopril 20 mg 06/09/17 10:45 06/12/17 11:43 Prinivil PO 20 mg DAILY RICHARD Administration Lisinopril 5 mg 06/12/17 17:30 06/12/17 18:17 Prinivil PO Not Given DAILY RICHARD Lorazepam 1 mg 06/09/17 17:15 06/11/17 20:59 Ativan PO 1 mg TID PRN Administration Anxiety Lorazepam 0.5 mg 06/13/17 17:39 06/15/17 08:43 Ativan PO 0.5 mg TID PRN Administration Anxiety Methylprednisolone Sodium Succinate 125 mg 06/09/17 02:14 06/09/17 02:34 Solu-Medrol IVP 06/09/17 02:15 125 mg O ONE Administration Methylprednisolone Sodium Succinate 40 mg 06/09/17 09:00 06/09/17 09:04 Solu-Medrol IM Not Given Q6HR RICHARD Metolazone 5 mg 06/10/17 14:56 06/10/17 15:20 Zaroxolyn PO 06/10/17 14:57 5 mg O ONE Administration Metoprolol Tartrate 25 mg 06/09/17 17:30 06/12/17 11:42 Lopressor PO 25 mg BIDWM RICHARD Administration Pharmacy Consult each 06/15/17 04:01 Pharmacy Consult - Fall Risk 06/15/17 04:02 ONE TIME ONE Potassium Chloride 20 meq 06/14/17 14:39 06/14/17 14:58 K-Dur 20 Meq Tablet PO 06/14/17 14:40 20 meq O ONE Administration Senna/Docusate Sodium 1 tab 06/09/17 03:33 Senna Plus Tablet PO BID PRN Constipation Results 06/18/17 05:16 06/19/17 04:25 Comprehensive Metabolic Panel 06/19/17 Range/Units 04:25 Sodium 144 (134-144) MEQ/L Potassium 4.1 (3.6-5) MEQ/L Chloride 91 L (98-107) MEQ/L Carbon Dioxide 42 H* (22-30) MEQ/L BUN 24.0 H (9-20) MG/DL Creatinine 1.3 D (0.8-1.5) mg/dL Glucose 98 (75-110) MG/DL Calcium 9.6 (8.4-10.2) MG/DL Intake and Output 06/18/17 06/19/17 06/19/17 22:59 06:59 14:59 Intake Total 590 / 590 125 / 125 450 / 450 Output Total 250 / 250 Balance 590 / 590 125 / 125 200 / 200 Intake: Oral 590 / 590 125 / 125 450 / 450 Output: Urine 250 / 250 Other: Urine Appearance Clear Urine Color Straw Stool Color Brown Stool Consistency Soft Formed Size of Bowel Movement Moderate # Voids 1 1 # Bowel Movements 1 Weight 133.5 kg Patient Weight 06/20/17 06:59 Weight 133.5 kg Assessment and Plan - Assessment and Plan (1) Dilated cardiomyopathy Problem details: EF 10-15% with 3/4 diastolic dysfunction on 06/11/17 EF 30% on TTE done 10/2015; global hypokinesis and dilated LV; EF 55% 09/2016 Current visit: No Status: Acute (2) Hypertension Problem details: Off all medications for > 6 months, uncontrolled Current visit: No Status: Acute (3) Acute and chronic respiratory failure with hypoxia Problem details: Chronic secondary to COPD, acute likely a combination of COPD exacerbation and volume overload/systolic heart failure exacerbation Current visit: No Status: Acute (4) Anxiety Problem details: Severe and chronic, untreated, exacerbated by dyspnea Current visit: No Status: Acute (5) Acute chronic obstructive pulmonary disease with respiratory distress Current visit: Yes Status: Acute (6) COPD exacerbation Current visit: No Status: Acute (7) Congestive heart failure Current visit: Yes Status: Acute (8) Abdominal wall cellulitis Current visit: No Status: Acute - Attestation Attestation Narrative: 06/19/17 13:00 Recommendation After examining the patient I agree with the above assessment. I am involved in the formulation of the patient's plan of care. Hospital Course Summary Disclaimer: The visit summary below is not to be considered part of the above Progress Note.
[2017-06-18] MEDS: FUROSEMIDE 40 MG TABLET PO SCH ×2 (14:08→18:10)
[2017-06-18] MEDS: RIVAROXABAN 20 MG TABLET PO SCH (18:10)
[2017-06-18] MEDS: SIMVASTATIN 20 MG TABLET PO SCH (20:55)
[2017-06-19] MEDS: ALBUTEROL/IPRATROPIUM 2.5mg-0.5mg/3ml NEB AEROSOL SCH ×3 (06:01→15:51)
--- NOTE | 2017-06-19 07:43 | Cardiology Progress Note ---
<Caryl Salas M - Last Filed: 06/19/17 08:32> Subjective Principal diagnosis: Severe Non-ischemic Dialated CM, Atrial fibrillation Interval history: Gray is seen in follow up for NI dilated CM, A Fib. He is in the bed and states he wants to go home and is going home tomorrow. He denies chest pain or pressure, palpitations, dyspnea or dizziness. Exam Vital signs: Temperature 95.6 F L 06/18/17 23:30 Pulse Rate 71 06/19/17 00:00 Respiratory Rate 20 06/19/17 06:01 Blood Pressure 113/73 06/18/17 23:30 Pulse Oximetry 90 06/19/17 06:01 Inpatient Medications: Generic Name Dose Route Start Last Admin Trade Name Freq PRN Reason Stop Dose Admin Acetaminophen 650 mg 06/10/17 14:38 06/15/17 20:18 Tylenol PO 650 mg Q5H PRN Administration Discomfort Hydrocodone Bitart/Acetaminophen 1 - 2 tab 06/12/17 19:34 06/18/17 14:19 [place] 5/325 PO 2 tab Q4H PRN Administration Pain Acetazolamide 250 mg 06/14/17 10:16 06/18/17 20:55 Diamox PO 250 mg BID RICHARD Administration Albuterol/Ipratropium 3 ml 06/09/17 11:00 06/19/17 06:01 Duoneb AEROSOL 3 ml RTQID RICHARD Administration Albuterol/Ipratropium 3 ml 06/09/17 10:34 06/17/17 04:59 Duoneb AEROSOL 3 ml QID PRN Administration Shortness of air/wheezing Alprazolam 0.5 mg 06/15/17 10:52 06/18/17 15:51 Xanax PO 0.5 mg TID PRN Administration Anxiety Amiodarone HCl 200 mg 06/12/17 16:45 06/18/17 08:17 Pacerone PO 200 mg DAILY RICHARD Administration Artificial Tears 1 drop 06/14/17 14:17 Refresh Classic EACH EYE QID PRN Budesonide 0.5 mg 06/10/17 19:00 06/18/17 20:20 Pulmicort Inhalation AEROSOL 0.5 mg RTBID RICHARD Administration Carvedilol 3.125 mg 06/12/17 17:47 06/18/17 18:10 Coreg PO 3.125 mg BIDWM RICHARD Administration Furosemide 40 mg 06/19/17 09:00 Lasix 40 Mg Tab PO DAILY RICHARD Gabapentin 300 mg 06/11/17 09:58 06/18/17 20:56 Neurontin PO 300 mg TID RICHARD Administration Lisinopril 2.5 mg 06/13/17 09:00 06/18/17 08:17 Prinivil PO 2.5 mg DAILY RICHARD Administration Metoclopramide HCl 5 mg 06/09/17 03:33 Reglan IVP Q6H PRN Rivaroxaban 20 mg 06/13/17 17:30 06/18/17 18:10 Xarelto PO 20 mg WS RICHARD Administration Senna/Docusate Sodium 2 tab 06/10/17 21:00 06/18/17 20:55 Senna Plus Tablet PO 2 tab BID RICAHRD Administration Sertraline HCl 50 mg 06/10/17 09:00 06/18/17 08:17 Zoloft PO 50 mg DAILY RICHARD Administration Simvastatin 20 mg 06/09/17 21:00 06/18/17 20:55 Zocor PO 20 mg HS RICHARD Administration Sodium Chloride 10 - 80 ml 06/09/17 02:14 06/16/17 20:49 Iv Flush IVF 10 ml PRN PRN Administration Flushing Discontinued Medications Generic Name Dose Route Start Last Admin Trade Name Freq PRN Reason Stop Dose Admin Hydrocodone Bitart/Acetaminophen 1 tab 06/09/17 03:33 06/12/17 11:52 [place] 5/325 PO 1 tab Q6H PRN Administration Pain Acetazolamide 500 mg 06/11/17 09:59 06/11/17 11:18 Diamox PO 06/11/17 10:00 500 mg O ONE Administration Acetazolamide Sodium 250 mg 06/12/17 16:45 06/12/17 19:32 Diamox Inj IV Not Given DAILY RICHARD Albuterol Sulfate 7.5 mg 06/09/17 02:35 06/09/17 02:47 Proventil Neb (0.083%) AEROSOL 06/09/17 02:36 7.5 mg O ONE Administration Albuterol/Ipratropium 3 ml 06/09/17 02:14 06/09/17 02:28 Duoneb IH 06/09/17 02:15 3 ml ONCE ONE Administration Carvedilol 6.25 mg 06/12/17 17:30 06/12/17 18:17 Coreg PO Not Given BIDWM RICHARD Furosemide 80 mg 06/09/17 02:34 06/09/17 02:38 Lasix 100 Mg/10 Ml IVP 06/09/17 02:35 80 mg O ONE Administration Furosemide 60 mg 06/09/17 09:00 06/12/17 16:58 Lasix 40 Mg/4 Ml IVP Not Given Q6HR RICHARD Furosemide 80 mg 06/12/17 17:00 06/12/17 18:16 Lasix 80 Mg Tab PO Not Given 0900,1700 RICHARD Furosemide 80 mg 06/14/17 09:00 Lasix 80 Mg Tab PO DAILY RICHARD Furosemide 40 mg 06/18/17 13:15 06/18/17 18:10 Lasix 40 Mg Tab PO 40 mg 0900,1700 RICHARD Administration Gabapentin 300 mg 06/10/17 21:00 06/10/17 21:41 Neurontin PO 300 mg HS RICHARD Administration Heparin Sodium (Beef Lung) 8,000 unit 06/11/17 15:30 06/11/17 16:12 Heparin Bolus IV 06/11/17 15:31 8,000 unit O ONE Administration Heparin Sodium (Porcine) 1 each 06/11/17 14:29 Pharmacy Consult - Heparin MC 06/11/17 14:30 ONE TIME ONE Amiodarone HCl 900 mg/ Sodium 500 mls @ 16.66 mls/hr 06/11/17 14:30 06/12/17 16:58 Chloride IV Infused .Q24H RICHARD Infusion 0.5 MG/MIN Amiodarone HCl 450 mg/ Sodium 250 mls @ 33.33 mls/hr 06/11/17 14:30 06/12/17 00:18 Chloride IV 06/11/17 20:30 Infused .[id number] RICHARD Infusion 1 MG/MIN Amiodarone HCl 150 mg/ Sodium 103 mls @ 618 mls/hr 06/11/17 14:29 06/11/17 15 :40 Chloride IV 06/11/17 14:38 Infused O ONE Infusion Heparin Sodium (Porcine) 20,000 unit in 500 mls @ 33 mls/hr 06/11/17 15:30 16:57 Heparin Drip IV Infused .[id number] RICHARD Titration Protocol Sodium Chloride 500 mls @ 250 mls/hr 06/12/17 19:45 06/12/17 21:50 Normal Saline IV 06/12/17 20:44 Infused .Q2H RICHARD Infusion Lisinopril 20 mg 06/09/17 10:45 06/12/17 11:43 Prinivil PO 20 mg DAILY RICHARD Administration Lisinopril 5 mg 06/12/17 17:30 06/12/17 18:17 Prinivil PO Not Given DAILY RICHARD Lorazepam 1 mg 06/09/17 17:15 06/11/17 20:59 Ativan PO 1 mg TID PRN Administration Anxiety Lorazepam 0.5 mg 06/13/17 17:39 06/15/17 08:43 Ativan PO 0.5 mg TID PRN Administration Anxiety Methylprednisolone Sodium Succinate 125 mg 06/09/17 02:14 06/09/17 02:34 Solu-Medrol IVP 06/09/17 02:15 125 mg O ONE Administration Methylprednisolone Sodium Succinate 40 mg 06/09/17 09:00 06/09/17 09:04 Solu-Medrol IM Not Given Q6HR [facility] Metolazone 5 mg 06/10/17 14:56 06/10/17 15:20 Zaroxolyn PO 06/10/17 14:57 5 mg O ONE Administration Metoprolol Tartrate 25 mg 06/09/17 17:30 06/12/17 11:42 Lopressor PO 25 mg BIDWM RICHARD Administration Pharmacy Consult each 06/15/17 04:01 Pharmacy Consult - Fall Risk 06/15/17 04:02 ONE TIME ONE Potassium Chloride 20 meq 06/14/17 14:39 06/14/17 14:58 K-Dur 20 Meq Tablet PO 06/14/17 14:40 20 meq O ONE Administration Senna/Docusate Sodium 1 tab 06/09/17 03:33 Senna Plus Tablet PO BID PRN Constipation - Constitutional no acute distress, morbidly obese, cooperative - Routine HEENT Exam Head: Present: normocephalic Eye: Present: periorbital ecchymosis, periorbital swelling, periorbital tenderness ENT: Present: mucous membranes moist - Routine Neck Exam Absent: JVD, carotid bruit - Routine Chest/Breast/Axilla Exam Chest wall: Absent: tenderness - Routine Respiratory Exam Present: decreased breath sounds. Absent: dyspnea - Routine Cardiovascular Exam Present: RRR, no murmur - Routine Abdominal Exam Present: soft, non tender - Routine Extremities Exam Present: edema - Routine Skin Exam Present: intact, dry, warm, ecchymosis - Routine Neurological Exam Present: alert, oriented X3 - Routine Psychiatric Exam Present: normal affect Results 06/18/17 05:16 06/19/17 04:25 Comprehensive Metabolic Panel 06/19/17 Range/Units 04:25 Sodium 144 (134-144) MEQ/L Potassium 4.1 (3.6-5) MEQ/L Chloride 91 L (98-107) MEQ/L Carbon Dioxide 42 H* (22-30) MEQ/L BUN 24.0 H (9-20) MG/DL Creatinine 1.3 D (0.8-1.5) mg/dL Glucose 98 (75-110) MG/DL Calcium 9.6 (8.4-10.2) MG/DL Intake and Output 06/18/17 06/19/17 06/19/17 22:59 06:59 14:59 Intake Total 590 / 590 125 / 125 Balance 590 / 590 125 / 125 Intake: Oral 590 / 590 125 / 125 Other: # Voids 1 1 Assessment and Plan - Assessment and Plan (1) Dilated cardiomyopathy Problem details: EF 10-15% with 3/4 diastolic dysfunction on 06/11/17 EF 30% on TTE done 10/2015; global hypokinesis and dilated LV; EF 55% 09/2016 Status: Acute (2) Hypertension Problem details: Off all medications for > 6 months, uncontrolled Status: Acute (3) Acute and chronic respiratory failure with hypoxia Problem details: Chronic secondary to COPD, acute likely a combination of COPD exacerbation and volume overload/systolic heart failure exacerbation Status: Acute (4) Anxiety Problem details: Severe and chronic, untreated, exacerbated by dyspnea Status : Acute (5) Acute chronic obstructive pulmonary disease with respiratory distress Status: Acute (6) COPD exacerbation Status: Acute (7) Congestive heart failure Status: Acute (8) Abdominal wall cellulitis Status: Acute - Assessment and Plan Atrial flutter with variable block Acute on Chronic systolic heart failure Medical and Lifestyle Non-Compliance Morbid Obesity Severe COPD Acute on chronic hypoxic respiratory failure 06/11/2017 Start IV Amiodarone and IV Heparin Will consider DCCV in AM if patient does not convert to NSR Agree with aggressive IV diuresis Patient's EF has decreased and now at approx 15%. His last HC 2014 revealing no significant CAD Likely the decreased EF is due to his arrhythmia We will attempt to regain NSR in an effort to improve his cardiac output as much as possible Continue B-Debbie and MANI-I NPO at midnight in the event we need to proceed with his JANEEN and DCCV This patient may need a Life Vest - will need to assess for compliance before placing the vest 06/12/2017 Patient had a successful DCCV into NSR today We will start him on Xarelto 20mg one tablet daily Patient now has Disability Medicare Insurance and Medicaid is pending Patient wants a Life vest - order has been put in place He understands the importance of compliance He said the only reason he was not compliant was due to financial reasons - "just did not have the money" We will change IV Lasix to oral Lasix 80mg po BID and start Diamox IV 250mg daily in an effort to improve his metabolic alkalosis Change to oral Amiodarone 200mg one tablet daily Patient will need Coreg, Lisinopril, Xarelto upon discharge patient will need to be on a 2 gram sodium restriction and a 2 Liter fluid restriction daily He will need to be followed in our clinic regularly to follow his CHF Patient's EF approx 10 to 15% 06/13/17 Remains hypotensive. - Agree with decreased doses of Coreg and Lisinopril if tolerates - Hold diuretic today, change to daily tomorrow. 06/14/17 Continue to hold Lasix, Continue Diamox - Consider Coumadin instead of Xarelto due to financial cost. 06/15/17 PCO2 79 on ABG, Continue Diamox, refuses Bi-Pap Scr improved, 1.3 today from 1.8 yesterday Will provide samples and discount card for Xarelto on discharge if decided to stay on Xarelto 06/18/17 Weight up 3 pounds, B/P stable, Scr stable - Change Lasix 80mg daily (which is on hold) to 40mg bid, start this afternoon - Monitor B/P, renal and electrolytes 06/19/17 SCr 1.3 today. No U/O charted since Lasix given at 1810 yesterday - Accurate I & O please, patient is on 1800ml fluid restriction - Change Lasix to 40mg daily, measure & record response Hospital Course Summary Disclaimer: The visit summary below is not to be considered part of the above Progress Note. Hospital Course: 06/09/17 Diuresis initiated overnight and will be continued with IV Lasix. Weight is up 17 kg in 5 weeks consistent with describe symptoms. Monitor electrolytes in the event supplemental potassium or magnesium becomes necessary. Continue supplemental oxygen. Resume metoprolol, lisinopril, and simvastatin as previously prescribed. Anticipate echocardiogram early next week. Continue Accu-Cheks, converted to diabetic diet with fluid restriction of 1800 mL per 24 hours. Albuterol/Atrovent treatments ordered 4 times daily and when necessary. Patient has requested lorazepam "that he takes at home" per nursing report which will require further clarification as this was neither prescribed at discharge nor reported by patient when I spoke with him. Sertraline was prescribed for his chronic anxiety/depressive disorder and will be resumed. 06/10/17 Currently on Lasix 60 mg IV every 6 hours without significant results. Will add one time dose of metolazone 5 mg by mouth now. Down 2.6 kilograms since admission. Echocardiogram early next week. Accu-Cheks ordered. Continue diabetic diet with fluid restriction of 1800 mL per 24 hours. Continue DuoNeb treatments. Add Pulmicort for wheezing. Add Neurontin for his neuropathic pain. Start at 300 mg daily and increase as tolerated. 06/11/17 Diamox 500mg po x 1 for CO2 retention. Currently on Lasix 60 mg IV every 6 hours. Had one time dose of metolazone 5 mg po yesterday with good results. Weight down almost 6 kilograms since admission. Tachycardic since last evening despite metoprolol 25 BID--> atrial flutter with variable block. Echocardiogram with severely reduced ejection fraction of approximate 10-15% and akinetic mid apical anterior, mid apical anteroseptal, and mid apical anterolateral wall. 3/4 diastolic dysfunction. Cardiology consulted for altered rhythm and cardiomyopathy-amiodarone and heparin drips initiated. Neurontin added yesterday for his neuropathic pain. Increase to TID. Consult OT/PT. Maintaining at home O2 at 3L; known diagnosis VALARIE, overnight oximetry tonight prior to trial of CPAP. 06/12/17 Patient hypotensive this afternoon corresponding to fall or syncopal event with facial injuries. For CT head and cervical spine; being placed in cervical collar at this time. Diuretics on hold, if blood pressure remains low small fluid bolus will be given. Carvedilol and lisinopril doses decreased by 50% pending stabilization of blood pressure. Discussed with Dr. Merchant after initial report of hypotension however it appeared to be artifactual at that time. Patient was on heparin earlier in the day; nursing reports heparin was off 30- 60 minutes prior to fall. Brief nasal bleeding reported immediately after fall. Successfully cardioverted to sinus rhythm earlier today-remains in sinus rhythm. Dr. Merchant has discussed Life Vest with patient in addition need for aggressive medical management due to severity of cardiac disease. Patient critically [id number] for complications of unstable blood pressure/ head injury. Overnight oximetry demonstrated moderate interference; oxygen saturation was < 89% for 10 minutes (patient was on 3 L oxygen by nasal cannula until 0230, 2 L from 2917-6750, then CPAP from 1649-1080. Lowest oxygen saturation reported was 79% and the longest desaturation was 57 seconds. [place] pattern evident on tracing. Patient did not tolerate standard face mask with CPAP last night-nasal mask to be tried tonight. <Lee Merchant - Last Filed: 06/22/17 16:40> Exam Vital signs: Temperature 95.6 F L 06/20/17 08:32 Pulse Rate 69 06/20/17 09:01 Respiratory Rate 28 H 06/20/17 11:30 Blood Pressure 127/64 06/20/17 09:01 Pulse Oximetry 94 06/20/17 11:30 Inpatient Medications: Discontinued Medications Generic Name Dose Route Start Last Admin Trade Name Freq PRN Reason Stop Dose Admin Acetaminophen 650 mg 06/10/17 14:38 06/15/17 20:18 Tylenol PO 650 mg Q5H PRN Administration Discomfort Hydrocodone Bitart/Acetaminophen 1 tab 06/09/17 03:33 06/12/17 11:52 [place] 5/325 PO 1 tab Q6H PRN Administration Pain Hydrocodone Bitart/Acetaminophen 1 - 2 tab 06/12/17 19:34 06/20/17 09:42 [place] 5/325 PO 2 tab Q4H PRN Administration Pain Acetazolamide 500 mg 06/11/17 09:59 06/11/17 11:18 Diamox PO 06/11/17 10:00 500 mg O ONE Administration Acetazolamide 250 mg 06/14/17 10:16 06/19/17 08:55 Diamox PO 250 mg BID RICHARD Administration Acetazolamide Sodium 250 mg 06/12/17 16:45 06/12/17 19:32 Diamox Inj IV Not Given DAILY RICHARD Albuterol Sulfate 7.5 mg 06/09/17 02:35 06/09/17 02:47 Proventil Neb (0.083%) AEROSOL 06/09/17 02:36 7.5 mg O ONE Administration Albuterol/Ipratropium 3 ml 06/09/17 02:14 06/09/17 02:28 Duoneb IH 06/09/17 02:15 3 ml ONCE ONE Administration Albuterol/Ipratropium 3 ml 06/09/17 11:00 06/20/17 11:30 Duoneb AEROSOL 3 ml RTQID RICHARD Administration Albuterol/Ipratropium 3 ml 06/09/17 10:34 06/17/17 04:59 Duoneb AEROSOL 3 ml QID PRN Administration Shortness of air/wheezing Alprazolam 0.5 mg 06/15/17 10:52 06/19/17 18:05 Xanax PO 0.5 mg TID PRN Administration Anxiety Amiodarone HCl 200 mg 06/12/17 16:45 06/20/17 09:37 Pacerone PO 200 mg DAILY RICHARD Administration Artificial Tears 1 drop 06/14/17 14:17 Refresh Classic EACH EYE QID PRN Budesonide 0.5 mg 06/10/17 19:00 06/19/17 18:40 Pulmicort Inhalation AEROSOL Not Given RTBID [facility] Carvedilol 6.25 mg 06/12/17 17:30 06/12/17 18:17 Coreg PO Not Given BIDWM RICHARD Carvedilol 3.125 mg 06/12/17 17:47 06/20/17 09:37 Coreg PO 3.125 mg BIDWM RICHARD Administration Furosemide 80 mg 06/09/17 02:34 06/09/17 02:38 Lasix 100 Mg/10 Ml IVP 06/09/17 02:35 80 mg O ONE Administration Furosemide 60 mg 06/09/17 09:00 06/12/17 16:58 Lasix 40 Mg/4 Ml IVP Not Given Q6HR RICHARD Furosemide 80 mg 06/12/17 17:00 06/12/17 18:16 Lasix 80 Mg Tab PO Not Given 0900,1700 RICHARD Furosemide 80 mg 06/14/17 09:00 Lasix 80 Mg Tab PO DAILY RICHARD Furosemide 40 mg 06/18/17 13:15 06/18/17 18:10 Lasix 40 Mg Tab PO 40 mg 0900,1700 RICHARD Administration Furosemide 40 mg 06/19/17 09:00 06/20/17 09:37 Lasix 40 Mg Tab PO 40 mg DAILY RICHARD Administration Gabapentin 300 mg 06/10/17 21:00 06/10/17 21:41 Neurontin PO 300 mg HS RICHARD Administration Gabapentin 300 mg 06/11/17 09:58 06/20/17 09:37 Neurontin PO 300 mg TID RICHARD Administration Heparin Sodium (Beef Lung) 8,000 unit 06/11/17 15:30 06/11/17 16:12 Heparin Bolus IV 06/11/17 15:31 8,000 unit O ONE Administration Heparin Sodium (Porcine) 1 each 06/11/17 14:29 Pharmacy Consult - Heparin 06/11/17 14:30 ONE TIME ONE Amiodarone HCl 900 mg/ Sodium 500 mls @ 16.66 mls/hr 06/11/17 14:30 06/12/17 16:58 Chloride IV Infused .Q24H RICHARD Infusion 0.5 MG/MIN Amiodarone HCl 450 mg/ Sodium 250 mls @ 33.33 mls/hr 06/11/17 14:30 06/12/17 00:18 Chloride IV 06/11/17 20:30 Infused .[id number] RICHARD Infusion 1 MG/MIN Amiodarone HCl 150 mg/ Sodium 103 mls @ 618 mls/hr 06/11/17 14:29 06/11/17 15 :40 Chloride IV 06/11/17 14:38 Infused O ONE Infusion Heparin Sodium (Porcine) 20,000 unit in 500 mls @ 33 mls/hr 06/11/17 15:30 16:57 Heparin Drip IV Infused .[id number] RICHARD Titration Protocol Sodium Chloride 500 mls @ 250 mls/hr 06/12/17 19:45 06/12/17 21:50 Normal Saline IV 06/12/17 20:44 Infused .Q2H RICHARD Infusion Lisinopril 20 mg 06/09/17 10:45 06/12/17 11:43 Prinivil PO 20 mg DAILY RICHARD Administration Lisinopril 5 mg 06/12/17 17:30 06/12/17 18:17 Prinivil PO Not Given DAILY RICHARD Lisinopril 2.5 mg 06/13/17 09:00 06/20/17 09:37 Prinivil PO 2.5 mg DAILY RICHARD Administration Lorazepam 1 mg 06/09/17 17:15 06/11/17 20:59 Ativan PO 1 mg TID PRN Administration Anxiety Lorazepam 0.5 mg 06/13/17 17:39 06/15/17 08:43 Ativan PO 0.5 mg TID PRN Administration Anxiety Methylprednisolone Sodium Succinate 125 mg 06/09/17 02:14 06/09/17 02:34 Solu-Medrol IVP 06/09/17 02:15 125 mg O ONE Administration Methylprednisolone Sodium Succinate 40 mg 06/09/17 09:00 06/09/17 09:04 Solu-Medrol IM Not Given Q6HR RICHARD Metoclopramide HCl 5 mg 06/09/17 03:33 Reglan IVP Q6H PRN Metolazone 5 mg 06/10/17 14:56 06/10/17 15:20 Zaroxolyn PO 06/10/17 14:57 5 mg O ONE Administration Metoprolol Tartrate 25 mg 06/09/17 17:30 06/12/17 11:42 Lopressor PO 25 mg BIDWM RICHARD Administration Pharmacy Consult each 06/15/17 04:01 Pharmacy Consult - Fall Risk 06/15/17 04:02 ONE TIME ONE Potassium Chloride 20 meq 06/14/17 14:39 06/14/17 14:58 K-Dur 20 Meq Tablet PO 06/14/17 14:40 20 meq O ONE Administration Rivaroxaban 20 mg 06/13/17 17:30 06/19/17 17:38 Xarelto PO 20 mg WS RICHARD Administration Senna/Docusate Sodium 1 tab 06/09/17 03:33 Senna Plus Tablet PO BID PRN Constipation Senna/Docusate Sodium 2 tab 06/10/17 21:00 06/20/17 14:12 Senna Plus Tablet PO Not Given BID RICHARD Sertraline HCl 50 mg 06/10/17 09:00 06/20/17 09:37 Zoloft PO 50 mg DAILY RICHARD Administration Simvastatin 20 mg 06/09/17 21:00 06/19/17 21:16 Zocor PO 20 mg HS RICHARD Administration Sodium Chloride 10 - 80 ml 06/09/17 02:14 06/16/17 20:49 Iv Flush IVF 10 ml PRN PRN Administration Flushing Results 06/18/17 05:16 06/20/17 04:02 Assessment and Plan - Assessment and Plan (1) Dilated cardiomyopathy Problem details: EF 10-15% with 3/4 diastolic dysfunction on 06/11/17 EF 30% on TTE done 10/2015; global hypokinesis and dilated LV; EF 55% 09/2016 Status: Chronic (2) Hypertension Problem details: Off all medications for > 6 months, uncontrolled Status: Acute (3) Acute and chronic respiratory failure with hypoxia Problem details: Chronic secondary to COPD, acute likely a combination of COPD exacerbation and volume overload/systolic heart failure exacerbation Status: Acute (4) Anxiety Problem details: Severe and chronic, untreated, exacerbated by dyspnea Status : Acute (5) Acute chronic obstructive pulmonary disease with respiratory distress Status: Acute (6) COPD exacerbation Status: Acute (7) Congestive heart failure Status: Acute (8) Abdominal wall cellulitis Status: Acute - Attestation Attestation Narrative: 06/22/17 16:40 Recommendation After examining the patient I agree with the above assessment. I am involved in the formulation of the patient's plan of care. Hospital Course Summary Disclaimer: The visit summary below is not to be considered part of the above Progress Note.
[2017-06-19] MEDS: FUROSEMIDE 40 MG TABLET PO SCH (08:55)
[2017-06-19] MEDS: CARVEDILOL 3.125 MG TABLET PO SCH ×2 (08:55→17:38)
[2017-06-19] MEDS: LISINOPRIL 2.5 MG TABLET PO SCH (08:55)
[2017-06-19] MEDS: acetaZOLAMIDE 250 MG TABLET PO SCH (08:55)
[2017-06-19] MEDS: GABAPENTIN 300 MG CAPSULE PO SCH ×3 (08:55→21:16)
[2017-06-19] MEDS: AMIODARONE 200 MG TABLET PO SCH (08:55)
[2017-06-19] MEDS: HYDROCODONE/APAP 5mg/325mg TABLET PO PRN ×2 (08:56→21:32)
[2017-06-19] MEDS: SERTRALINE 50 MG TABLET PO SCH (08:56)
[2017-06-19] MEDS: SENNA + DOCUSATE TABLET PO SCH ×2 (08:56→21:16)
[2017-06-19] MEDS: ALPRAZolam 0.5 MG TABLET PO PRN ×2 (10:00→18:05)
--- NOTE | 2017-06-19 12:32 | Pulmonology Progress Note ---
Subjective Principal diagnosis: Severe Non-ischemic Dialated CM, Atrial fibrillation Interval history: Pt in bed resting,using BIPAP at night IPAP 10, EPAP 5, rate 12, FiO2 40%. Son is at bedside. States that family is going to help care for patient upon dismissal Exam Vital signs: Temperature 98.2 F 06/19/17 07:54 Pulse Rate 81 06/19/17 08:00 Respiratory Rate 18 06/19/17 11:05 Blood Pressure 153/97 H 06/19/17 07:54 Pulse Oximetry 93 06/19/17 11:05 Inpatient Medications: Generic Name Dose Route Start Last Admin Trade Name Freq PRN Reason Stop Dose Admin Acetaminophen 650 mg 06/10/17 14:38 06/15/17 20:18 Tylenol PO 650 mg Q5H PRN Administration Discomfort Hydrocodone Bitart/Acetaminophen 1 - 2 tab 06/12/17 19:34 06/19/17 08:56 [place] 5/325 PO 1 tab Q4H PRN Administration Pain Acetazolamide 250 mg 06/14/17 10:16 06/19/17 08:55 Diamox PO 250 mg BID RICHARD Administration Albuterol/Ipratropium 3 ml 06/09/17 11:00 06/19/17 11:05 Duoneb AEROSOL 3 ml RTQID RICHARD Administration Albuterol/Ipratropium 3 ml 06/09/17 10:34 06/17/17 04:59 Duoneb AEROSOL 3 ml QID PRN Administration Shortness of air/wheezing Alprazolam 0.5 mg 06/15/17 10:52 06/19/17 10:00 Xanax PO 0.5 mg TID PRN Administration Anxiety Amiodarone HCl 200 mg 06/12/17 16:45 06/19/17 08:55 Pacerone PO 200 mg DAILY RICHARD Administration Artificial Tears 1 drop 06/14/17 14:17 Refresh Classic EACH EYE QID PRN Carvedilol 3.125 mg 06/12/17 17:47 06/19/17 08:55 Coreg PO 3.125 mg BIDWM RICHARD Administration Furosemide 40 mg 06/19/17 09:00 06/19/17 08:55 Lasix 40 Mg Tab PO 40 mg DAILY RICHARD Administration Gabapentin 300 mg 06/11/17 09:58 06/19/17 08:55 Neurontin PO 300 mg TID RICHARD Administration Lisinopril 2.5 mg 06/13/17 09:00 06/19/17 08:55 Prinivil PO 2.5 mg DAILY [facility] Administration Metoclopramide HCl 5 mg 06/09/17 03:33 Reglan IVP Q6H PRN Rivaroxaban 20 mg 06/13/17 17:30 06/18/17 18:10 Xarelto PO 20 mg WS RICHARD Administration Senna/Docusate Sodium 2 tab 06/10/17 21:00 06/19/17 08:56 Senna Plus Tablet PO 2 tab BID RICHARD Administration Sertraline HCl 50 mg 06/10/17 09:00 06/19/17 08:56 Zoloft PO 50 mg DAILY RICHARD Administration Simvastatin 20 mg 06/09/17 21:00 06/18/17 20:55 Zocor PO 20 mg HS RICHARD Administration Sodium Chloride 10 - 80 ml 06/09/17 02:14 06/16/17 20:49 Iv Flush IVF 10 ml PRN PRN Administration Flushing Discontinued Medications Generic Name Dose Route Start Last Admin Trade Name Freq PRN Reason Stop Dose Admin Hydrocodone Bitart/Acetaminophen 1 tab 06/09/17 03:33 06/12/17 11:52 [place] 5/325 PO 1 tab Q6H PRN Administration Pain Acetazolamide 500 mg 06/11/17 09:59 06/11/17 11:18 Diamox PO 06/11/17 10:00 500 mg O ONE Administration Acetazolamide Sodium 250 mg 06/12/17 16:45 06/12/17 19:32 Diamox Inj IV Not Given DAILY [facility] Albuterol Sulfate 7.5 mg 06/09/17 02:35 06/09/17 02:47 Proventil Neb (0.083%) AEROSOL 06/09/17 02:36 7.5 mg O ONE Administration Albuterol/Ipratropium 3 ml 06/09/17 02:14 06/09/17 02:28 Duoneb IH 06/09/17 02:15 3 ml ONCE ONE Administration Budesonide 0.5 mg 06/10/17 19:00 06/18/17 20:20 Pulmicort Inhalation AEROSOL 0.5 mg RTBID [facility] Administration Carvedilol 6.25 mg 06/12/17 17:30 06/12/17 18:17 Coreg PO Not Given BIDWM RICHARD Furosemide 80 mg 06/09/17 02:34 06/09/17 02:38 Lasix 100 Mg/10 Ml IVP 06/09/17 02:35 80 mg O ONE Administration Furosemide 60 mg 06/09/17 09:00 06/12/17 16:58 Lasix 40 Mg/4 Ml IVP Not Given Q6HR RICHARD Furosemide 80 mg 06/12/17 17:00 06/12/17 18:16 Lasix 80 Mg Tab PO Not Given 0900,1700 RICHARD Furosemide 80 mg 06/14/17 09:00 Lasix 80 Mg Tab PO DAILY RICHARD Furosemide 40 mg 06/18/17 13:15 06/18/17 18:10 Lasix 40 Mg Tab PO 40 mg 0900,1700 RICHARD Administration Gabapentin 300 mg 06/10/17 21:00 06/10/17 21:41 Neurontin PO 300 mg HS RICHARD Administration Heparin Sodium (Beef Lung) 8,000 unit 06/11/17 15:30 06/11/17 16:12 Heparin Bolus IV 06/11/17 15:31 8,000 unit O ONE Administration Heparin Sodium (Porcine) 1 each 06/11/17 14:29 Pharmacy Consult - Heparin MC 06/11/17 14:30 ONE TIME ONE Amiodarone HCl 900 mg/ Sodium 500 mls @ 16.66 mls/hr 06/11/17 14:30 06/12/17 16:58 Chloride IV Infused .Q24H RICHARD Infusion 0.5 MG/MIN Amiodarone HCl 450 mg/ Sodium 250 mls @ 33.33 mls/hr 06/11/17 14:30 06/12/17 00:18 Chloride IV 06/11/17 20:30 Infused .[id number] RICHARD Infusion 1 MG/MIN Amiodarone HCl 150 mg/ Sodium 103 mls @ 618 mls/hr 06/11/17 14:29 06/11/17 15 :40 Chloride IV 06/11/17 14:38 Infused O ONE Infusion Heparin Sodium (Porcine) 20,000 unit in 500 mls @ 33 mls/hr 06/11/17 15:30 16:57 Heparin Drip IV Infused .[id number] RICHARD Titration Protocol Sodium Chloride 500 mls @ 250 mls/hr 06/12/17 19:45 06/12/17 21:50 Normal Saline IV 06/12/17 20:44 Infused .Q2H RICHARD Infusion Lisinopril 20 mg 06/09/17 10:45 06/12/17 11:43 Prinivil PO 20 mg DAILY RICHARD Administration Lisinopril 5 mg 06/12/17 17:30 06/12/17 18:17 Prinivil PO Not Given DAILY RICHARD Lorazepam 1 mg 06/09/17 17:15 06/11/17 20:59 Ativan PO 1 mg TID PRN Administration Anxiety Lorazepam 0.5 mg 06/13/17 17:39 06/15/17 08:43 Ativan PO 0.5 mg TID PRN Administration Anxiety Methylprednisolone Sodium Succinate 125 mg 06/09/17 02:14 06/09/17 02:34 Solu-Medrol IVP 06/09/17 02:15 125 mg O ONE Administration Methylprednisolone Sodium Succinate 40 mg 06/09/17 09:00 06/09/17 09:04 Solu-Medrol IM Not Given Q6HR [facility] Metolazone 5 mg 06/10/17 14:56 06/10/17 15:20 Zaroxolyn PO 06/10/17 14:57 5 mg O ONE Administration Metoprolol Tartrate 25 mg 06/09/17 17:30 06/12/17 11:42 Lopressor PO 25 mg BIDWM RICHARD Administration Pharmacy Consult each 06/15/17 04:01 Pharmacy Consult - Fall Risk 06/15/17 04:02 ONE TIME ONE Potassium Chloride 20 meq 06/14/17 14:39 06/14/17 14:58 K-Dur 20 Meq Tablet PO 06/14/17 14:40 20 meq O ONE Administration Senna/Docusate Sodium 1 tab 06/09/17 03:33 Senna Plus Tablet PO BID PRN Constipation - Constitutional no acute distress, obese - Routine Neck Exam Present: supple, full ROM - Routine Respiratory Exam Present: decreased breath sounds. Absent: accessory muscle use, rales - Routine Cardiovascular Exam Present: RRR Results - Laboratory Findings Laboratory: Laboratory Results - last 48 hr 06/17/17 06/17/17 06/17/17 14:25 20:17 20:45 WBC RBC Hgb Hct MCV MCH MCHC RDW Std Deviation Plt Count MPV Neutrophils % (Manual) Lymphocytes % (Manual) Monocytes % (Manual) Eosinophils % (Manual) Basophils % (Manual) Neutrophils # (Manual) Lymphocytes # (Manual) Monocytes # (Manual) Eosinophils # (Manual) Basophils # (Manual) RBC Morph Comment Turbidity Sodium Potassium Chloride Carbon Dioxide Anion Gap BUN Creatinine GFR Calculation BUN/Creatinine Ratio Glucose Glucometer 157 161 161 Calculated Osmolality Calcium Phosphorus Icterus Index Albumin Specimen Hemolysis 06/18/17 06/18/17 06/18/17 04:48 05:16 05:16 WBC 7.8 RBC 4.54 Hgb 12.2 L Hct 41.3 MCV 91.0 MCH 26.9 MCHC 29.5 L RDW Std Deviation 55.2 H Plt Count 109 L MPV 10.7 Neutrophils % (Manual) 67.0 H Lymphocytes % (Manual) 22.0 L Monocytes % (Manual) 5.0 Eosinophils % (Manual) 5.0 H Basophils % (Manual) 1.0 Neutrophils # (Manual) 5.2 Lymphocytes # (Manual) 1.7 Monocytes # (Manual) 0.4 Eosinophils # (Manual) 0.4 Basophils # (Manual) 0.1 RBC Morph Comment Normal Turbidity < 20 Sodium 143 Potassium 4.8 D Chloride 96 L Carbon Dioxide 38 H Anion Gap 9 BUN 25.0 H Creatinine 1.0 D GFR Calculation 78 BUN/Creatinine Ratio 25 Glucose 128 H Glucometer 117 Calculated Osmolality 281 H Calcium 9.5 Phosphorus 3.9 Icterus Index < 2 Albumin 3.7 Specimen Hemolysis 127 H 06/18/17 06/18/17 06/18/17 10:27 14:09 20:02 WBC RBC Hgb Hct MCV MCH MCHC RDW Std Deviation Plt Count MPV Neutrophils % (Manual) Lymphocytes % (Manual) Monocytes % (Manual) Eosinophils % (Manual) Basophils % (Manual) Neutrophils # (Manual) Lymphocytes # (Manual) Monocytes # (Manual) Eosinophils # (Manual) Basophils # (Manual) RBC Morph Comment Turbidity Sodium Potassium Chloride Carbon Dioxide Anion Gap BUN Creatinine GFR Calculation BUN/Creatinine Ratio Glucose Glucometer 146 131 111 Calculated Osmolality Calcium Phosphorus Icterus Index Albumin Specimen Hemolysis 06/19/17 06/19/17 06/19/17 04:25 05:42 10:41 WBC RBC Hgb Hct MCV MCH MCHC RDW Std Deviation Plt Count MPV Neutrophils % (Manual) Lymphocytes % (Manual) Monocytes % (Manual) Eosinophils % (Manual) Basophils % (Manual) Neutrophils # (Manual) Lymphocytes # (Manual) Monocytes # (Manual) Eosinophils # (Manual) Basophils # (Manual) RBC Morph Comment Turbidity < 20 Sodium 144 Potassium 4.1 Chloride 91 L Carbon Dioxide 42 H* Anion Gap 11 BUN 24.0 H Creatinine 1.3 D GFR Calculation 58 BUN/Creatinine Ratio 19 Glucose 98 Glucometer 102 102 Calculated Osmolality 281 H Calcium 9.6 Phosphorus Icterus Index < 2 Albumin Specimen Hemolysis < 15 - Diagnostic Findings Chest x-ray: report reviewed, image reviewed Assessment and Plan (1) Acute and chronic respiratory failure with hypercapnia Status: Acute Assessment and plan: Recommend home vent to mask. The patient has chronic hypercapnic respiratory failure with significant risk of morbidity and mortality as well as repeated hospitalization due to respiratory failure. Use of NIPPV, vent to mask at night and prn will reduce the risk of hospitalization and . I recommend Trilogy vent, AC, Vt 500 rate 12, peep 6. Bleed in O2 Current Visit: Yes (2) Dilated cardiomyopathy Problem details: EF 10-15% with 3/4 diastolic dysfunction on 06/11/17 EF 30% on TTE done 10/2015; global hypokinesis and dilated LV; EF 55% 09/2016 Status: Acute Assessment and plan: LVEF 10-15%. On Coreg, MANI-, Xarelto, Amiodarone, Diuretics. Not showing signs of decompensated heart failure at this time. Current Visit: No (3) COPD exacerbation Status: Acute Assessment and plan: on O2 to keep sat >90% Home regimen of nebulized albuterol/ipratropium qid and prn We will not recommend inhaled budesonide at this time. Current Visit: No - Assessment and Plan Chronic Hypoxic Respiratory Failure, likely with chronic Hypercapnic Failure COPD, unknown severity, no meds at home Systolic EF/Non ischemic Dilated cardiomyopathy - EF 10-15% - life vest atrial fibrillation MARGI - likely 2/2 diuresis - Time Spent With Patient Total time spent is greater than 50% in coordination of care (as documented) at patient's floor/unit and/or counseling patient: 25 - 35 minutes
[2017-06-19] MEDS: RIVAROXABAN 20 MG TABLET PO SCH (17:38)
[2017-06-19] MEDS: BUDESONIDE INH.SOLN 0.5mg/2ml NEB AEROSOL SCH (18:40)
--- NOTE | 2017-06-19 18:59 | Progress Note ---
- Date 06/19/17 Subjective: Gray was sleeping or resting in bed when I stopped by his room several times today. He was not on BiPAP anytime I caught him napping and he reported that no one has showed him how to use it. He insists he will use BiPAP at home. I asked him to simply call staff when he plans to now to assist him with it or ask them to teach him how to use it. He reports that his breathing's okay and indicated he has only minor exertional dyspnea. He reports that he walked in the halls a little bit yesterday but hasn't been out of bed beyond the bathroom today. He denied chest pain or palpitations, reports decreased facial pain and improved ability to open his eye. He reported that diplopia is improving progressively as he is able to open his eye better. He denied ongoing lightheadedness. Objective Vital signs: Temperature 98.2 F 06/19/17 07:54 Pulse Rate 73 06/19/17 17:40 Respiratory Rate 18 06/19/17 15:51 Blood Pressure 103/67 06/19/17 17:40 Pulse Oximetry 90-1 L 06/19/17 15:43 I/O 1290/2200 Drowsy male, flat affect, mumbled voice Minor soft tissue swelling around left eye with fading bruising; partially opens left eye spontaneously, EOMI Respirations nonlabored, decreased breath sounds throughout, no wheezing or crackles appreciated Regular rhythm, S1-S2; LifeVest on Abdomen soft, nontender, obese, minimal edema palpable in the inferior bowel wall Extremities with +1 pitting edema MAEW, repositions himself in bed without difficulty Height/Weight/BMI: Height 1.78 m Weight 133.5 kg Body Mass Index 44.4 Results - Labs CBC & Chem 7: 06/18/17 05:16 06/19/17 04:25 Assessment and Plan (1) Dilated cardiomyopathy Problem details: EF 10-15% with 3/4 diastolic dysfunction on 06/11/17 EF 30% on TTE done 10/2015; global hypokinesis and dilated LV; EF 55% 09/2016 Current visit: No Status: Acute (2) COPD, severe Problem details: on 3L NC chronically at home Current visit: No Status: Chronic (3) Acute and chronic respiratory failure with hypoxia Problem details: Chronic secondary to COPD, acute likely a combination of COPD exacerbation and volume overload/systolic heart failure exacerbation Current visit: No Status: Acute Assessment and Plan: Assessment Acute on chronic CHF Volume overload-improved Dilated cardiomyopathy with EF of 10-15% - Life Vest per cardiology Chronic hypercarbic/hypoxic respiratory failure-BiPAP as tolerated with sleep Hypertension-pressure borderline low COPD Obstructive sleep apnea Diabetes mellitus, type II-diet controlled-A1C 6.1 05/01/17 Peripheral neuropathy Morbid obesity Depression/anxiety Fall versus syncope with head injury-06/12/17 Facial trauma due to fall Minimally depressed left orbital fracture sustained 06/12/17 Hypotension-06/13/15 Acute kidney injury - resolved Plan He used BiPAP most of last night. Pulmonology is recommending a home vent to mask. His management working with home supplier to provide equipment. Patient resistant to using BiPAP with naps despite encouragement to do so. Discussed with pulmonary and cardiology-patient indicates intent to discharge tomorrow and unclear that additional benefit from longer hospitalization if home vent to mask is coordinated. Need for outpatient follow-up discussed with the patient and his son in addition to follow-up with prescribed medication regimen. Discontinue Diamox, will utilize ventilatory support to help manage CO2/ bicarbonate. Furosemide resumed at 40 mg daily in conjunction with fluid restriction. Continue low-dose lisinopril and carvedilol. Patient will also require amiodarone and Xarelto (ultimately may need to convert to warfarin due to cost) due to history of atrial fibrillation/flutter. LifeVest on; reassessment of LV function will be needed to determine if AICD appropriate. Accu-Cheks consistently [id number] monitoring. - Physician Narrative Narrative: Date: 06/19/17 Time: 185 Hospital Course Summary Disclaimer: The visit summary below is not to be considered part of the above Progress Note. Hospital Course: 06/09/17 Diuresis initiated overnight and will be continued with IV Lasix. Weight is up 17 kg in 5 weeks consistent with describe symptoms. Monitor electrolytes in the event supplemental potassium or magnesium becomes necessary. Continue supplemental oxygen. Resume metoprolol, lisinopril, and simvastatin as previously prescribed. Anticipate echocardiogram early next week. Continue Accu-Cheks, converted to diabetic diet with fluid restriction of 1800 mL per 24 hours. Albuterol/Atrovent treatments ordered 4 times daily and when necessary. Patient has requested lorazepam "that he takes at home" per nursing report which will require further clarification as this was neither prescribed at discharge nor reported by patient when I spoke with him. Sertraline was prescribed for his chronic anxiety/depressive disorder and will be resumed. 06/10/17 Currently on Lasix 60 mg IV every 6 hours without significant results. Will add one time dose of metolazone 5 mg by mouth now. Down 2.6 kilograms since admission. Echocardiogram early next week. Accu-Cheks ordered. Continue diabetic diet with fluid restriction of 1800 mL per 24 hours. Continue DuoNeb treatments. Add Pulmicort for wheezing. Add Neurontin for his neuropathic pain. Start at 300 mg daily and increase as tolerated. 06/11/17 Diamox 500mg po x 1 for CO2 retention. Currently on Lasix 60 mg IV every 6 hours. Had one time dose of metolazone 5 mg po yesterday with good results. Weight down almost 6 kilograms since admission. Tachycardic since last evening despite metoprolol 25 BID--> atrial flutter with variable block. Echocardiogram with severely reduced ejection fraction of approximate 10-15% and akinetic mid apical anterior, mid apical anteroseptal, and mid apical anterolateral wall. 3/4 diastolic dysfunction. Cardiology consulted for altered rhythm and cardiomyopathy-amiodarone and heparin drips initiated. Neurontin added yesterday for his neuropathic pain. Increase to TID. Consult OT/PT. Maintaining at home O2 at 3L; known diagnosis VALARIE, overnight oximetry tonight prior to trial of CPAP. 06/12/17 Patient hypotensive this afternoon corresponding to fall or syncopal event with facial injuries. For CT head and cervical spine; being placed in cervical collar at this time. Diuretics on hold, if blood pressure remains low small fluid bolus will be given. Carvedilol and lisinopril doses decreased by 50% pending stabilization of blood pressure. Discussed with Dr. Merchant after initial report of hypotension however it appeared to be artifactual at that time. Patient was on heparin earlier in the day; nursing reports heparin was off 30- 60 minutes prior to fall. Brief nasal bleeding reported immediately after fall. Successfully cardioverted to sinus rhythm earlier today-remains in sinus rhythm. Dr. Merchant has discussed Life Vest with patient in addition need for aggressive medical management due to severity of cardiac disease. Patient critically [id number] for complications of unstable blood pressure/ head injury. Overnight oximetry demonstrated moderate interference; oxygen saturation was < 89% for 10 minutes (patient was on 3 L oxygen by nasal cannula until 0230, 2 L from [id number], then CPAP from [id number]. Lowest oxygen saturation reported was 79% and the longest desaturation was 57 seconds. [place] pattern evident on tracing. Patient did not tolerate standard face mask with CPAP last night-nasal mask to be tried tonight. 06/13/17 Patient remains mildly hypotensive this today; diuretics remain on hold. Gray received 500 mL fluid yesterday evening due to hypotension. Lisinopril and carvedilol dose is decreased. Due to severity of cardiomyopathy will need to resume medications as soon as blood pressure permits. Events of yesterday evening reviewed with cardiology; patient remains in sinus rhythm following cardioversion yesterday. Patient did not try CPAP last night due to facial injuries but is willing to try as tolerated today and tonight. Reminded to use CPAP both overnight and with daytime naps. Creatinine up today-1.9; BUN/creatinine were slightly elevated yesterday morning reflecting diuresis but worsened following hypertension yesterday. Repeat labs now. If creatinine climbing further will replace additional volume this evening. Patient remains at high risk for complications due to combined cardiomyopathy, nocturnal hypoxia, and hemodynamic instability. 06/14/17 BP still hypotensive occasionally but improving from yesterday. Cont low-dose amlodipine and carvedilol. diuretics on hold and acetazolamide has been started for increasing CO2 levels. Encourage CPAP use. Na low but stable at 133. K 3.5 -- replaced orally. BUN up slightly to 41; creatinine decreased from 1.9 to 1.8. Will obtain maxillofacial CT for left mandibular pain and trismus. 06/15/17 CO2 continues to climb despite starting acetazolamide yesterday. Today it is 47. He was more somnolent this morning and an ABG was obtained, showing a pH of 7.34, PCO2 79, PO2 65, and H2O3 of 42 on 3 L. He is unable to tolerate CPAP via mask or nasal cannula because of facial trauma. Dr. Rebolledo has been consulted to help manage his COPD and hypercarbic/hypoxic respiratory failure in the setting of facial trauma. Parisa Garcia APRN recommends to decrease oxygen for a goal saturation of 90%. Blood pressure currently stable though he was hypotensive late last evening at 87/64. Continue low-dose amlodipine and carvedilol, managed per cardiology. Anticoagulation d/w Caryl Salas APRN: likely will change to Coumadin because of cost of Xarelto. Sodium and potassium have both been corrected. Renal function is improving and diuretics remain on hold. BUN is 47 and creatinine is 1.3. Maxillofacial CT yesterday revealed a mildly depressed left orbital floor fracture with extensive subcutaneous emphysema. He is able to slightly open his eye today. 06/16/17 CO2 remains high, on acetazolamide 48 hours. ABG yesterday with pH of 7.34, PCO2 79, PO2 65, and H2O3 of 42 on 3 L. BiPAP reinitiated this morning with fullface mask and patient is at least tolerating for short time periods; reapplied this afternoon and was on again when I last walked by the room. Patient continues to sleep much of the day. Blood pressure has generally been stable although last recorded pressure was down. Carvedilol and lisinopril doses decreased and furosemide on hold. Attempting to minimize narcotics and alprazolam due to sedation/CO2 retention. Continue to monitor eye movements and visual symptoms. At present formal ophthalmology evaluation has not been pursued but may be needed if diplopia persists. 06/17/17 CO2 remains high, but has improved on acetazolamide 48 hours. BiPAP reinitiated yesterday and he is tolerating intermittently. Patient continues to sleep much of the day, but states he does this because he is "bored". Regarding borderline low blood pressure, Carvedilol and lisinopril doses decreased and furosemide on hold. Attempting to minimize narcotics and alprazolam due to sedation/CO2 retention. Continue to monitor eye movements and visual symptoms. Currently the patient has conjugate gaze and swelling has improved. Renal function continues to improve following recent hypotension. CBC and renal panel tomorrow. 06/18/17 He tolerated BiPAP last night. Pulmonology is recommending nebulized treatments with Pulmicort and DuoNeb and a home vent to mask. They will be working on securing this equipment for him prior to discharge. CO2 decreasing, and is down to 38 today. He continues on Diamox twice a day. Furosemide is still on hold. Continue fluid restriction. Left periorbital swelling and ecchymosis and left maxillofacial swelling is improving. PT and OT evaluations are pending. The patient's son asks appropriate questions regarding exercises he could do at home to help strengthen his heart. 06/19/17 He used BiPAP most of last night. Pulmonology is recommending a home vent to mask. His management working with home supplier to provide equipment. Patient resistant to using BiPAP with naps despite encouragement to do so. Discussed with pulmonary and cardiology-patient indicates intent to discharge tomorrow and unclear that additional benefit from longer hospitalization if home vent to mask is coordinated. Need for outpatient follow-up discussed with the patient and his son in addition to follow-up with prescribed medication regimen. Discontinue Diamox, will utilize ventilatory support to help manage CO2/ bicarbonate. Furosemide resumed at 40 mg daily in conjunction with fluid restriction. Continue low-dose lisinopril and carvedilol. Patient will also require amiodarone and Xarelto (ultimately may need to convert to warfarin due to cost) due to history of atrial fibrillation/flutter. LifeVest on; reassessment of LV function will be needed to determine if AICD appropriate. Accu-Cheks consistently [id number] monitoring.
[2017-06-19] MEDS: SIMVASTATIN 20 MG TABLET PO SCH (21:16)
[2017-06-20] MEDS: ALBUTEROL/IPRATROPIUM 2.5mg-0.5mg/3ml NEB AEROSOL SCH ×2 (08:12→11:30)
[2017-06-20 08:33] VITALS: TEMP 95.6
[2017-06-20 09:02] VITALS: BP 127/64; PULSE 69
--- NOTE | 2017-06-20 09:29 | Pulmonology Progress Note ---
Subjective Principal diagnosis: Severe Non-ischemic Dialated CM, Atrial fibrillation Interval history: Pt up to EOB, states no SOB or cough noted at this time, wanting to go home. Used bipap last noc without issues. Exam Vital signs: Temperature 95.6 F L 06/20/17 08:32 Pulse Rate 69 06/20/17 09:01 Respiratory Rate 18 06/20/17 08:32 Blood Pressure 127/64 06/20/17 09:01 Pulse Oximetry 95 06/20/17 08:32 Inpatient Medications: Generic Name Dose Route Start Last Admin Trade Name Freq PRN Reason Stop Dose Admin Acetaminophen 650 mg 06/10/17 14:38 06/15/17 20:18 Tylenol PO 650 mg Q5H PRN Administration Discomfort Hydrocodone Bitart/Acetaminophen 1 - 2 tab 06/12/17 19:34 06/19/17 21:32 [place] 5/325 PO 2 tab Q4H PRN Administration Pain Albuterol/Ipratropium 3 ml 06/09/17 11:00 06/20/17 08:12 Duoneb AEROSOL 3 ml RTQID RICHARD Administration Albuterol/Ipratropium 3 ml 06/09/17 10:34 06/17/17 04:59 Duoneb AEROSOL 3 ml QID PRN Administration Shortness of air/wheezing Alprazolam 0.5 mg 06/15/17 10:52 06/19/17 18:05 Xanax PO 0.5 mg TID PRN Administration Anxiety Amiodarone HCl 200 mg 06/12/17 16:45 06/19/17 08:55 Pacerone PO 200 mg DAILY RICHARD Administration Artificial Tears 1 drop 06/14/17 14:17 Refresh Classic EACH EYE QID PRN Carvedilol 3.125 mg 06/12/17 17:47 06/19/17 17:38 Coreg PO 3.125 mg BIDWM RICHARD Administration Furosemide 40 mg 06/19/17 09:00 06/19/17 08:55 Lasix 40 Mg Tab PO 40 mg DAILY RICHARD Administration Gabapentin 300 mg 06/11/17 09:58 06/19/17 21:16 Neurontin PO 300 mg TID RICHARD Administration Lisinopril 2.5 mg 06/13/17 09:00 06/19/17 08:55 Prinivil PO 2.5 mg DAILY RICHARD Administration Metoclopramide HCl 5 mg 06/09/17 03:33 Reglan IVP Q6H PRN Rivaroxaban 20 mg 06/13/17 17:30 06/19/17 17:38 Xarelto PO 20 mg WS RICHARD Administration Senna/Docusate Sodium 2 tab 06/10/17 21:00 06/19/17 21:16 Senna Plus Tablet PO 2 tab BID RICHARD Administration Sertraline HCl 50 mg 06/10/17 09:00 06/19/17 08:56 Zoloft PO 50 mg DAILY RICHARD Administration Simvastatin 20 mg 06/09/17 21:00 06/19/17 21:16 Zocor PO 20 mg HS RICHARD Administration Sodium Chloride 10 - 80 ml 06/09/17 02:14 06/16/17 20:49 Iv Flush IVF 10 ml PRN PRN Administration Flushing Discontinued Medications Generic Name Dose Route Start Last Admin Trade Name Freq PRN Reason Stop Dose Admin Hydrocodone Bitart/Acetaminophen 1 tab 06/09/17 03:33 06/12/17 11:52 [place] 5/325 PO 1 tab Q6H PRN Administration Pain Acetazolamide 500 mg 06/11/17 09:59 06/11/17 11:18 Diamox PO 06/11/17 10:00 500 mg O ONE Administration Acetazolamide 250 mg 06/14/17 10:16 06/19/17 08:55 Diamox PO 250 mg BID RICHARD Administration Acetazolamide Sodium 250 mg 06/12/17 16:45 06/12/17 19:32 Diamox Inj IV Not Given DAILY RICHARD Albuterol Sulfate 7.5 mg 06/09/17 02:35 06/09/17 02:47 Proventil Neb (0.083%) AEROSOL 06/09/17 02:36 7.5 mg O ONE Administration Albuterol/Ipratropium 3 ml 06/09/17 02:14 06/09/17 02:28 Duoneb IH 06/09/17 02:15 3 ml ONCE ONE Administration Budesonide 0.5 mg 06/10/17 19:00 06/19/17 18:40 Pulmicort Inhalation AEROSOL Not Given RTBID RICHARD Carvedilol 6.25 mg 06/12/17 17:30 06/12/17 18:17 Coreg PO Not Given BIDWM RICAHRD Furosemide 80 mg 06/09/17 02:34 06/09/17 02:38 Lasix 100 Mg/10 Ml IVP 06/09/17 02:35 80 mg O ONE Administration Furosemide 60 mg 06/09/17 09:00 06/12/17 16:58 Lasix 40 Mg/4 Ml IVP Not Given Q6HR RICHARD Furosemide 80 mg 06/12/17 17:00 06/12/17 18:16 Lasix 80 Mg Tab PO Not Given 0900,1700 RICHARD Furosemide 80 mg 06/14/17 09:00 Lasix 80 Mg Tab PO DAILY RICHARD Furosemide 40 mg 06/18/17 13:15 06/18/17 18:10 Lasix 40 Mg Tab PO 40 mg 0900,1700 RICHARD Administration Gabapentin 300 mg 06/10/17 21:00 06/10/17 21:41 Neurontin PO 300 mg HS RICHARD Administration Heparin Sodium (Beef Lung) 8,000 unit 06/11/17 15:30 06/11/17 16:12 Heparin Bolus IV 06/11/17 15:31 8,000 unit O ONE Administration Heparin Sodium (Porcine) 1 each 06/11/17 14:29 Pharmacy Consult - Heparin 06/11/17 14:30 ONE TIME ONE Amiodarone HCl 900 mg/ Sodium 500 mls @ 16.66 mls/hr 06/11/17 14:30 06/12/17 16:58 Chloride IV Infused .Q24H RICHARD Infusion 0.5 MG/MIN Amiodarone HCl 450 mg/ Sodium 250 mls @ 33.33 mls/hr 06/11/17 14:30 06/12/17 00:18 Chloride IV 06/11/17 20:30 Infused .[id number] RICHARD Infusion 1 MG/MIN Amiodarone HCl 150 mg/ Sodium 103 mls @ 618 mls/hr 06/11/17 14:29 06/11/17 15 :40 Chloride IV 06/11/17 14:38 Infused O ONE Infusion Heparin Sodium (Porcine) 20,000 unit in 500 mls @ 33 mls/hr 06/11/17 15:30 16:57 Heparin Drip IV Infused .[id number] RICHARD Titration Protocol Sodium Chloride 500 mls @ 250 mls/hr 06/12/17 19:45 06/12/17 21:50 Normal Saline IV 06/12/17 20:44 Infused .Q2H RICHARD Infusion Lisinopril 20 mg 06/09/17 10:45 06/12/17 11:43 Prinivil PO 20 mg DAILY RICHARD Administration Lisinopril 5 mg 06/12/17 17:30 06/12/17 18:17 Prinivil PO Not Given DAILY RICHARD Lorazepam 1 mg 06/09/17 17:15 06/11/17 20:59 Ativan PO 1 mg TID PRN Administration Anxiety Lorazepam 0.5 mg 06/13/17 17:39 06/15/17 08:43 Ativan PO 0.5 mg TID PRN Administration Anxiety Methylprednisolone Sodium Succinate 125 mg 06/09/17 02:14 06/09/17 02:34 Solu-Medrol IVP 06/09/17 02:15 125 mg O ONE Administration Methylprednisolone Sodium Succinate 40 mg 06/09/17 09:00 06/09/17 09:04 Solu-Medrol IM Not Given Q6HR RICHARD Metolazone 5 mg 06/10/17 14:56 06/10/17 15:20 Zaroxolyn PO 06/10/17 14:57 5 mg O ONE Administration Metoprolol Tartrate 25 mg 06/09/17 17:30 06/12/17 11:42 Lopressor PO 25 mg BIDWM RICHARD Administration Pharmacy Consult each 06/15/17 04:01 Pharmacy Consult - Fall Risk 06/15/17 04:02 ONE TIME ONE Potassium Chloride 20 meq 06/14/17 14:39 06/14/17 14:58 K-Dur 20 Meq Tablet PO 06/14/17 14:40 20 meq O ONE Administration Senna/Docusate Sodium 1 tab 06/09/17 03:33 Senna Plus Tablet PO BID PRN Constipation - Constitutional no acute distress, morbidly obese, cooperative - Routine HEENT Exam Head: Present: normocephalic, atraumatic Eye: Present: EOMI, PERRL ENT: Present: mucous membranes moist - Routine Neck Exam Present: supple, full ROM, trachea midline - Routine Respiratory Exam Present: decreased breath sounds. Absent: accessory muscle use, patient mechanically ventilated - Routine Cardiovascular Exam Present: RRR, S1, S2, no murmur - Routine Abdominal Exam Present: soft, normoactive bowel sounds - Routine Extremities Exam Present: edema, non tender, full ROM. Absent: cyanosis, clubbing - Routine Back/Spine/Pelvis Exam Back/Spine: Present: full ROM - Routine Skin Exam Present: intact, dry. Absent: cyanosis, erythema - Routine Neurological Exam Present: alert, oriented X3, CN II-XII intact - Routine Psychiatric Exam Present: normal affect, normal thought process Results - Laboratory Findings Laboratory: Laboratory Results - last 48 hr 06/18/17 06/18/17 06/18/17 10:27 14:09 20:02 Turbidity Sodium Potassium Chloride Carbon Dioxide Anion Gap BUN Creatinine GFR Calculation BUN/Creatinine Ratio Glucose Glucometer 146 131 111 Calculated Osmolality Calcium Magnesium Icterus Index Specimen Hemolysis 06/19/17 06/19/17 06/19/17 04:25 05:42 10:41 Turbidity < 20 Sodium 144 Potassium 4.1 Chloride 91 L Carbon Dioxide 42 H* Anion Gap 11 BUN 24.0 H Creatinine 1.3 D GFR Calculation 58 BUN/Creatinine Ratio 19 Glucose 98 Glucometer 102 102 Calculated Osmolality 281 H Calcium 9.6 Magnesium Icterus Index < 2 Specimen Hemolysis < 15 06/19/17 06/20/17 14:50 04:02 Turbidity < 20 Sodium 142 Potassium 4.1 Chloride 96 L Carbon Dioxide 39 H Anion Gap 7 BUN 24.0 H Creatinine 1.1 D GFR Calculation 70 BUN/Creatinine Ratio 22 Glucose 93 Glucometer 113 Calculated Osmolality 277 Calcium 9.1 Magnesium 2.0 Icterus Index < 2 Specimen Hemolysis < 15 Assessment and Plan - Assessment and Plan Chronic Hypoxic Respiratory Failure, likely with chronic Hypercapnic Failure COPD, unknown severity, no meds at home Systolic EF/Non ischemic Dilated cardiomyopathy - EF 10-15% - life vest atrial fibrillation MARGI - likely 2/2 diuresis Plan: Pt currently on O2 at 1L per NC, keep sats 90-95%, bipap used last noc IPAP 10, EPAP 5, rate 12, FiO2 40%, VT 600. ABG 7.33/79/65 4/6, has Chronic hypercapnic failure secondary to COPD. Requires a home vent to mask to prevent exacerbation , secondary to worsening hypercapnic failure, or CHF exacerbation. Bipap ruled out. Would continue on nebulized budesonde BID and brovana BID with albuterol neb 1-2 times a day till seen in clinic. Needs f/u in 3-4 weeks with a PFT, my office will call to set up appt. - Time Spent With Patient Total time spent is greater than 50% in coordination of care (as documented) at patient's floor/unit and/or counseling patient: less than 15 minutes
[2017-06-20] MEDS: FUROSEMIDE 40 MG TABLET PO SCH (09:37)
[2017-06-20] MEDS: LISINOPRIL 2.5 MG TABLET PO SCH (09:37)
[2017-06-20] MEDS: CARVEDILOL 3.125 MG TABLET PO SCH (09:37)
[2017-06-20] MEDS: GABAPENTIN 300 MG CAPSULE PO SCH (09:37)
[2017-06-20] MEDS: AMIODARONE 200 MG TABLET PO SCH (09:37)
[2017-06-20] MEDS: SERTRALINE 50 MG TABLET PO SCH (09:37)
[2017-06-20] MEDS: HYDROCODONE/APAP 5mg/325mg TABLET PO PRN (09:42)
[2017-06-20 11:36] VITALS: RESP 28; O2SAT 94
[2017-06-20] MEDS: SENNA + DOCUSATE TABLET PO SCH (14:12)
--- NOTE | 2017-06-20 20:35 | Discharge Summary ---
Discharge Information Date of admission: 06/09/17 03:37 Anticipated date of discharge: 06/20/17 Attending Physician: Melissa Ramírez MD Primary care physician: Gray Rueda DO Consults: Consulting Provider: Lee Merchant Reason For Exam: chf Consulting Provider: Jorden Rebolledo Reason For Exam: chronic resp failure - Discharge Diagnosis (1) Congestive heart failure Status: Acute (2) Dilated cardiomyopathy Status: Chronic (3) COPD, severe Status: Chronic (4) Acute and chronic respiratory failure with hypoxia Status: Acute Acute on chronic systolic/diastolic CHF Volume overload-improved Dilated cardiomyopathy with EF of 10-15%, nonischemic Chronic hypercarbic/hypoxic respiratory failure Hypertension COPD with exacerbation Obstructive sleep apnea Diabetes mellitus, type II-diet controlled-A1C 6.1 05/01/17 Peripheral neuropathy Morbid obesity Depression/anxiety Fall versus syncope with head injury-06/12/17 Facial trauma due to fall Minimally depressed left orbital fracture sustained 06/12/17 Hypotension, transient-06/13/15 Acute kidney injury - resolved - Procedures Procedures: Echocardiogram on 06/11/17 1. Suboptimal transthoracic echocardiographic study due to poor acoustic windows. 2. Severely reduced left ventricular systolic function. LVEF 10%-15%. Mildly dilated left ventricle. 3. Normal right ventricle. 4. Mild mitral regurgitation. ----- Overnight oximetry on 06/11-06/12 demonstrated moderate interference; oxygen saturation was < 89% for 10 minutes (patient was on 3 L oxygen by nasal cannula until 0230, 2 L from 4212-6991, then CPAP from 2222-4771. Lowest oxygen saturation reported was 79% and the longest desaturation was 57 seconds. Sawtooth pattern evident on tracing. ----- DC Cardioversion on 06/12/17 successfully converting from atrial flutter into sinus rhythm with 360 J synchronized energy. - Laboratory Labs: On admission 06/09/17 WBC 9.7, hemoglobin 11.9; admission chemistries notable only for bicarbonate of 38 and proBNP 2470, TSH 1.67 on 06/10/17; Liver enzymes normal on 06/12/17 ABG 7.337/79/66/42.3/89.7% saturated on 3 L oxygen on 06/15/17 06/18/17 05:16 06/20/17 04:02 - Radiology Radiology: Chest x-ray on 06/09/17 demonstrated cardiomegaly and increased pulmonary vascular markings. ----- CT head without contrast on 06/12/17: The ventricles are of normal size, shape, and configuration for the patient's age. There is no evidence of acute intracranial hemorrhage, midline displacement, or mass effect. There are scattered areas of low attenuation in the white matter which most likely represent changes of chronic microvascular ischemia. The CT attenuation of the brain parenchyma is otherwise normal within the cerebellum, brain stem, and cerebral hemispheres. The tympanic cavities and mastoid air cells are free of appreciable disease. There are no definite fractures of the skull base, calvarium, or visualized portion of the midface. Left preseptal soft tissue swelling and supraorbital hematoma. Small amount of fluid in the left maxillary sinus. IMPRESSION: No CT evidence of acute traumatic intracranial injury. ----- CT of the cervical spine without contrast on 06/12/17: The alignment of the cervical spine shows levoscoliosis, probably positional. Multilevel degenerative changes are present. There is no evidence of acute fracture or subluxation of the cervical spine. The atlantoaxial articulation, dens, and upper cervical spine demonstrate no subluxation. Fluid in the left maxillary sinus. IMPRESSION: No acute traumatic abnormality of the cervical spine. ----- Maxillofacial CT without contrast on 06/13/17: Diffuse subcutaneous emphysema seen in the upper neck and left facial region. There is a small of fluid in the left maxillary sinus. Periodontal disease seen in the maxillary and mandibular teeth. There is a fracture of the left inferior orbital floor. There is no definite CT evidence of extraocular muscle entrapment. The globes are intact. The lenses are located. No intraconal hematoma or inflammation. There is gas in the left orbit. No additional acute maxillofacial fractures seen. No focal fluid collection or focal hematoma. Impression: Mildly depressed left orbital floor fracture with extensive subcutaneous emphysema. ----- One view chest x-ray on 06/16/17 demonstrated hazy opacity in the left upper/ lower lobe suggestive of atelectasis versus infiltrate; no CHF. Final chest x-ray on 06/18/17 revealed resolution of prior left lower lobe opacity but increasing interstitial prominence suggesting mild CHF. History of Present Illness HPI: Mr. Antonio is a 52-year-old male well-known to the hospital medicine service from prior hospitalizations. He has a dilated cardiomyopathy with ejection fraction of 30% and 10/25 improving to 55% in 09/25 and history of noncompliance due to lack of insurance and transportation. He was last hospitalized partially 5 weeks ago with volume overload/CHF. At that time he indicated he would become eligible for Medicaid on 05/10 but now indicates that Medicaid will be eligible on 06/10. Since discharge on 05/04/17 the patient has had increased fluid retention accompanied by increasing dyspnea. He describes increasing abdominal girth and increasing edema in his legs. He is winded when he stands up. The only medication he has been taking since discharge his Lasix and potassium. He is chronically on 3 L supplemental oxygen which he has been using at home. He denies chest pain, fevers, chills, or wheezing. He reports rapid heart rates while home and that EMS switched him to a nonrebreather mask for transportation to the emergency room last night. The patient's weight has increased from 125.2 kg last month at discharge to admission weight of 142.4 kg. Objective Vital signs: Temperature 95.6 F L 06/20/17 08:32 Pulse Rate 69 06/20/17 09:01 Respiratory Rate 28 H 06/20/17 11:30 Blood Pressure 127/64 06/20/17 09:01 Pulse Oximetry 94 - 1 L 06/20/17 11:30 NAD, alert; ambulated in the halls earlier today using a walker Fading left periorbital bruising/soft tissue swelling but only able to open the left eye about care home Respirations nonlabored, decreased airflow throughout lung park posteriorly but breath sounds are clear Regular rhythm, S1-S2 +2 bilateral lower extremity edema Height/Weight/BMI: Height 1.78 m Weight 131.2 kg Body Mass Index 44.4 Hospital Course This is a general summary of the patient's hospital course. For more details refer to the complete medical record. Hospital course: 06/09/17 Diuresis initiated overnight and will be continued with IV Lasix. Weight is up 17 kg in 5 weeks consistent with describe symptoms. Monitor electrolytes in the event supplemental potassium or magnesium becomes necessary. Continue supplemental oxygen. Resume metoprolol, lisinopril, and simvastatin as previously prescribed. Albuterol/Atrovent treatments ordered 4 times daily and when necessary. Patient has requested lorazepam "that he takes at home" per nursing report which will require further clarification as this was neither prescribed at discharge nor reported by patient when I spoke with him. Sertraline was prescribed for his chronic anxiety/depressive disorder and will be resumed. 06/10/17 Currently on Lasix 60 mg IV every 6 hours without significant results. Metolazone 5 mg 1 given to facilitate diuresis. Down 2.6 kilograms since admission. Add fluid restriction of 1800 mL per 24 hours. Add Neurontin for his neuropathic pain. Start at 300 mg daily and increase as tolerated. 06/11/17 Diamox 500mg po x 1 for CO2 retention. Currently on Lasix 60 mg IV every 6 hours. Had one time dose of metolazone 5 mg po yesterday with good results. Weight down almost 6 kilograms since admission. Tachycardic since last evening despite metoprolol 25 BID--> atrial flutter with variable block. Dr. Merchant consulted for altered rhythm and cardiomyopathy-->amiodarone and heparin drips initiated. Echocardiogram with severely reduced ejection fraction of approximate 10-15% and akinetic mid apical anterior, mid apical anteroseptal, and mid apical anterolateral wall. 3/4 diastolic dysfunction. 06/12/17 Cardioverted from atrial flutter to sinus rhythm this morning. Subsequently hypotensive this afternoon and patient experienced a fall or syncopal event with facial injuries when up to the bathroom. CT head and cervical spine negative for acute traumatic injuries; significant soft tissue swelling/bruising around the left eye. Diuretics on hold, small fluid bolus given for persistent hypertension later in the evening. Carvedilol and lisinopril doses decreased by 50% pending stabilization of blood pressure. Patient was on heparin earlier in the day; nursing reports heparin was off 30- 60 minutes prior to fall. Brief nasal bleeding reported immediately after fall. Overnight oximetry demonstrated moderate interference; oxygen saturation was < 89% for 10 minutes (patient was on 3 L oxygen by nasal cannula until 0230, 2 L from 1284-9647, then CPAP from 4233-1001. Lowest oxygen saturation reported was 79% and the longest desaturation was 57 seconds. Sawtooth pattern evident on tracing. Patient did not tolerate standard face mask with CPAP last night-nasal mask to be tried tonight. 06/13/17 Patient remains mildly hypotensive this today; diuretics remain on hold. Lisinopril and carvedilol dose is decreased. Patient did not try CPAP last night due to facial injuries but is willing to try as tolerated today and tonight. Creatinine up today-1.9; BUN/creatinine were slightly elevated yesterday morning reflecting diuresis but worsened following hypertension yesterday. Patient remains at high risk for complications due to combined cardiomyopathy, nocturnal hypoxia, and hemodynamic instability. 06/14/17 BP still hypotensive occasionally but improving from yesterday. Cont low-dose lisinopril and carvedilol. Furosemide on hold; acetazolamide has been started for increasing CO2 levels. Encourage CPAP use. Na low but stable at 133. K 3.5 -- replaced orally. BUN up slightly to 41; creatinine decreased from 1.[address] for left mandibular pain and trismus demonstrating a mildly depressed small inferior orbital floor fracture. 06/15/17 CO2 continues to climb despite starting acetazolamide yesterday. Today it is 47. He was more somnolent this morning and an ABG was obtained, showing a pH of 7.34 , PCO2 79, PO2 65, and H2O3 of 42 on 3 L. He is unable to tolerate CPAP via mask or nasal cannula because of facial trauma. Dr. Rebolledo has been consulted to help manage his COPD and hypercarbic/ hypoxic respiratory failure in the setting of facial trauma. O2 flow rate being decreased and oxygen titrated to 90-94%. Blood pressure currently stable though he was hypotensive late last evening at 87/64. Continue low-dose lisinopril and carvedilol, managed per cardiology. Anticoagulation d/w Caryl Salas APRN: May change to Coumadin because of cost of Xarelto. Sodium and potassium have both been corrected. Renal function is improving and diuretics remain on hold. BUN is 47 and creatinine is 1.3. Maxillofacial CT yesterday revealed a mildly depressed left orbital floor fracture with extensive subcutaneous emphysema. He is able to slightly open his eye today. 06/16/17 BiPAP reinitiated this morning with fullface mask and patient is at least tolerating for short time periods. Patient continues to sleep much of the day. Blood pressure has generally been stable although last recorded pressure was down. Attempting to minimize narcotics and alprazolam due to sedation/CO2 retention. Continue to monitor eye movements and visual symptoms. At present formal ophthalmology evaluation has not been pursued but may be needed if diplopia persists. 06/17/17 CO2 remains high, but has improved on acetazolamide 48 hours. Diuresing fairly well with Diamox as a single agent. BiPAP reinitiated yesterday and he is tolerating intermittently. Patient continues to sleep much of the day, but states he does this because he is "bored". Continue to monitor eye movements and visual symptoms. Currently the patient has conjugate gaze and swelling has improved. 06/18/17 He tolerated BiPAP last night. Pulmonology is recommending nebulized treatments with Pulmicort and DuoNeb and a home vent to mask. They will be working on securing this equipment for him prior to discharge. CO2 decreasing, and is down to 38 today. He continues on Diamox twice a day. Furosemide is still on hold. Continue fluid restriction. Left periorbital swelling and ecchymosis and left maxillofacial swelling is improving. The patient's son asks appropriate questions regarding exercises he could do at home to help strengthen his heart. 06/19/17 He used BiPAP most of last night. Pulmonology is recommending a home vent to mask for chronic hypercarbic respiratory failure. Case management working with home supplier to provide equipment. Need for outpatient follow-up discussed with the patient and his son in addition to follow-up with prescribed medication regimen. Discontinue Diamox, will utilize ventilatory support to help manage CO2/ bicarbonate. Furosemide resumed at 40 mg daily in conjunction with fluid restriction. Continue low-dose lisinopril and carvedilol. Patient will also require amiodarone and Xarelto (ultimately may need to convert to warfarin due to cost) due to history of atrial fibrillation/flutter. LifeVest on; reassessment of LV function will be needed to determine if AICD appropriate. Accu-Cheks consistently [id number] monitoring. 06/20/17-discharge Gray was initially seen ambulating in the halls with physical therapy today. He is using a walker which will be coordinated for discharge. He was later seen in his room where he denied lightheadedness or diplopia and indicated his breathing is fairly comfortable and edema has improved during hospitalization. His weight remains above recent baseline but LifeVest is on and accounts for several pounds. He is aware that ongoing diuresis will be needed. Medications were reviewed with the patient and his son in detail; samples of Xarelto were provided by cardiology. Patient is aware that he will need to follow-up with Dr. Rueda, Dr. Rebolledo, and Dr. Merchant within the next month for refills of all medications. If visual symptoms develop he will require formal ophthalmology evaluation. Discharge weight (LifeVest on) 131.2 kg down 11 kg from admission. Patient is utilizing 1 L supplemental oxygen continuously at discharge. Time spent with patient: discharge greater than 30 minutes Resuscitation Status: Full Code Discharge Plan - Discharge Disposition Discharge Date: 06/20/17 Disposition: 86 Home Health Service *Condition: Improved Reason For Visit (Visit label in EMR): CHF/cardiomyopathy - Discharge Medications *Discharge Medications: New ALPRAZolam [Xanax] 0.5 mg PO TID PRN #15 tab PRN Reason: Anxiety Amiodarone [Pacerone] 200 mg PO DAILY #30 tab Furosemide [Lasix 40 mg Tab] 40 mg PO DAILY #30 tab Gabapentin [Neurontin] 300 mg PO TID #90 cap Hydrocodone/APAP 5/325 [[place] 5/325] 1 tab PO Q4H PRN #20 tab PRN Reason: Pain Lisinopril [Prinivil] 2.5 mg PO DAILY #30 tab Rivaroxaban [Xarelto] 20 mg PO WS #30 tab Budesonide Inhalation [Pulmicort Inhalation] 0.5 mg INH BID #60 vial Ipratropium [place] 1 dose AEROSOL QID #120 bottle Carvedilol [Coreg] 3.125 mg PO BIDWM #60 tab Albuterol Neb (0.083%) [Proventil Neb (0.083%)] 2.5 mg AEROSOL QID #120 vial Continue Acetaminophen [Tylenol] 325 - 650 mg PO Q5H PRN tab PRN Reason: Discomfort Simvastatin [Zocor] 20 mg PO HS #30 tab Sertraline [Zoloft] 50 mg PO DAILY #30 tab Discontinued Furosemide [Lasix 40 mg Tab] 1 tab PO BID #30 tab Lisinopril [Prinivil] 20 mg PO DAILY #30 tab Metoprolol Tartrate [Lopressor] 25 mg PO BIDWM #60 tab Potassium 99 mg PO BID #30 tab PredniSONE [Deltasone 20 mg] 40 mg PO WB #2 tab Furosemide [Lasix 20 mg Tab] 1 tab PO DAILY #30 tab - Discharge Packet/Instructions *Diet: Low-salt, low-fat *Activity: As tolerates-use oxygen and walker *Pain Management/Treatment: Use Tylenol as per package directions; add [place] only when absolutely needed. Narcotics aren't good for your breathing. *Wound Care: Not applicable Additional Instructions: Multiple changes have been made in your medications- see the list and refer to it daily; some of them will change on follow-up. You have samples of Xarelto already and will not need to fill that prescription. Schedule follow-up appointments with Dr. Merchant and Dr. Rebolledo for about 3 weeks from now and a follow-up appointment with Dr. Rueda in one week. All a prescriptions will need to be refilled in one month and Dr. Rueda or Amaury or Shonda will need to see you to refill them. Continue to wear a life vest at all times. Used to trilogy ventilator when you sleep and now to minimize risk of suffocating. *Expected Signs/Symptoms: Shortness of breath with activity *Notify Physician if: You have chest pain, increasing swelling in her abdomen or legs, increasing trouble breathing, or if the life vest shocks you *During Business Hours Contact: Dr. Rueda's office at [phone]; other physicians phone numbers follow *After Business Hours Contact: Call [facility] at [phone] and ask that the on-call physician be paged for Dr. Rueda or Shonda or Amaury *Pending Lab/Results: No Pending Lab - Referrals/Follow Up *Referrals/Follow Up: Lee Merchant MD [Physician] - 3 Weeks (APPOINTMENT ON 07/10 CHECK IN AT 120, SEE AT 140.) Jorden Rebolledo MD [Physician] - 3 Weeks (with PFT's--his office will call you to schedule) Gray Rueda DO [Family Provider] - 1 Week (APPOINTMENT ON 06/27 CHECK IN AT 11:15 AT 11:30. ) - Patient Handouts Patient Handouts: Dilated Cardiomyopathy (GEN), COPD (Chronic Obstructive Pulmonary Disease) (GEN) - Dismissal Complete Discharge Instructions are:: Complete Physician Narrative - Narrative Attestation Narrative: Date: 06/20/17 Time: 2030
--- NOTE | 2017-06-21 13:25 | Right on Track Program ---
Right on Track Program Date of Discharge: 06/20/17 Home Medications: Previous Rx's Medication Instructions Recorded Acetaminophen [Tylenol] 325 - 650 mg PO Q5H PRN tab 05/03/17 ALPRAZolam [Xanax] 0.5 mg PO TID PRN #15 tab 06/20/17 Albuterol Neb (0.083%) [Proventil 2.5 mg AEROSOL QID #120 vial 06/20/17 Neb (0.083%)] Amiodarone [Pacerone] 200 mg PO DAILY #30 tab 06/20/17 Budesonide Inhalation [Pulmicort 0.5 mg INH BID #60 vial 06/20/17 Inhalation] Carvedilol [Coreg] 3.125 mg PO BIDWM #60 tab 06/20/17 Furosemide [Lasix 40 mg Tab] 40 mg PO DAILY #30 tab 06/20/17 Gabapentin [Neurontin] 300 mg PO TID #90 cap 06/20/17 Hydrocodone/APAP 5/325 [[place] 1 tab PO Q4H PRN #20 tab 06/20/17 5/325] Ipratropium [place] 1 dose AEROSOL QID #120 bottle 06/20/17 Lisinopril [Prinivil] 2.5 mg PO DAILY #30 tab 06/20/17 Rivaroxaban [Xarelto] 20 mg PO WS #30 tab 06/20/17 Sertraline [Zoloft] 50 mg PO DAILY #30 tab 06/20/17 Simvastatin [Zocor] 20 mg PO HS #30 tab 06/20/17 - Right on Track Program Phone call Date: 06/21/17 Right on Track Program: 24 Hour Follow-Up Discharge Summary Received: Yes Care Plan Received: Yes Follow Up: Follow Up Appointment Scheduled (Lee Merchant MD [Physician] - 3 Weeks (APPOINTMENT ON 07/10 CHECK IN AT 120,SEE AT 140.)) Education: Diagnosis Education Reviewed Referral: Durable Medical Equipment, Primary Care Physician, Home Health Comments: I spoke with Gray on 06/21/17. He's doing well overall. He's expecting his Trilogy to be delivered today. He wasn't able to fill the pulmicort Rx - even with Medicare it will still cost him >$100 out of pocket. Also, the pharmacy was out of ipratropium but he should be able to pick that up today. He "hates" his lifevest, but knows he has to wear it. His f/u appts are already scheduled. He denied questions on discharge instructions. Discussed With Patient and Caregiver: Yes Recommendations For Follow-up: - Discharge Diagnoses Acute on chronic systolic/diastolic CHF Volume overload-improved Dilated cardiomyopathy with EF of 10-15%, nonischemic Chronic hypercarbic/hypoxic respiratory failure Hypertension COPD with exacerbation Obstructive sleep apnea Diabetes mellitus, type II-diet controlled-A1C 6.1 05/01/17 Peripheral neuropathy Morbid obesity Depression/anxiety Fall versus syncope with head injury-06/12/17 Facial trauma due to fall Minimally depressed left orbital fracture sustained 06/12/17 Hypotension, transient-06/13/15 Acute kidney injury - resolved - Discharge Medications New ALPRAZolam [Xanax] 0.5 mg PO TID PRN #15 tab PRN Reason: Anxiety Amiodarone [Pacerone] 200 mg PO DAILY #30 tab Furosemide [Lasix 40 mg Tab] 40 mg PO DAILY #30 tab Gabapentin [Neurontin] 300 mg PO TID #90 cap Hydrocodone/APAP 5/325 [[place] 5/325] 1 tab PO Q4H PRN #20 tab Lisinopril [Prinivil] 2.5 mg PO DAILY #30 tab Rivaroxaban [Xarelto] 20 mg PO WS #30 tab Budesonide Inhalation [Pulmicort Inhalation] 0.5 mg INH BID #60 vial Ipratropium [place] 1 dose AEROSOL QID #120 bottle Carvedilol [Coreg] 3.125 mg PO BIDWM #60 tab Albuterol Neb (0.083%) [Proventil Neb (0.083%)] 2.5 mg AEROSOL QID #120 vial Continue Acetaminophen [Tylenol] 325 - 650 mg PO Q5H PRN tab Simvastatin [Zocor] 20 mg PO HS #30 tab Sertraline [Zoloft] 50 mg PO DAILY #30 tab Discontinued Furosemide [Lasix 40 mg Tab] 1 tab PO BID #30 tab Lisinopril [Prinivil] 20 mg PO DAILY #30 tab Metoprolol Tartrate [Lopressor] 25 mg PO BIDWM #60 tab Potassium 99 mg PO BID #30 tab PredniSONE [Deltasone 20 mg] 40 mg PO WB #2 tab Furosemide [Lasix 20 mg Tab] 1 tab PO DAILY #30 tab - Discharge Instructions *Diet: Low-salt, low-fat *Activity: As tolerates-use oxygen and walker *Pain Management/Treatment: Use Tylenol as per package directions; add [place] only when absolutely needed. Narcotics aren't good for your breathing. Additional Instructions: Multiple changes have been made in your medications- see the list and refer to it daily; some of them will change on follow-up. You have samples of Xarelto already and will not need to fill that prescription. Schedule follow-up appointments with Dr. Merchant and Dr. Rebolledo for about 3 weeks from now and a follow-up appointment with Dr. Rueda in one week. All a prescriptions will need to be refilled in one month and Dr. Rueda or Amaury or Shonda will need to see you to refill them. Continue to wear a life vest at all times. Used to trilogy ventilator when you sleep and now to minimize risk of suffocating. - ROTP Plan *Continue Home Health *Call next week to set up home visit. - Problems (1) Dilated cardiomyopathy Code(s): I42.0 - Dilated cardiomyopathy Status: Chronic (2) COPD, severe Code(s): J44.9 - Chronic obstructive pulmonary disease, unspecified Status: Chronic (3) Acute and chronic respiratory failure with hypoxia Code(s): J96.21 - Acute and chronic respiratory failure with hypoxia Status: Acute
== END 2017-06-20 15:10 | disposition home health service (06) | DRG 291 ==
LOC: ED 01:55 → MED 03:35 → SUATTDRO 03:37 → MED 06-15 14:12
PROVIDERS: ADMIT Internal Medicine; ATTEND Internal Medicine

== ENCOUNTER 2017-07-15 18:14 | Inpatient (IN) ==
[2017-07-15] MEDS ORDERED: SALINE FLUSH 10ml SYRINGE IVF PRN (18:28)
--- OUTSIDE RECORDS SUMMARY | 2017-07-15 18:40 | External Medical Summary ---
[...] Start Date End Date Status Dosage Wheelchair [facility] [id number] 1 Dx: J44.9, Jan 13, as directed 52 I50.20 2014 Ibuprofen [facility] [id number] 200 MG Orally Jan 13, Feb 12, 1 tablet as 4-71 every 8 hrs, do 2014 2014 needed not take for more than 1 week at a time Results No Known Results Summary Purpose eClinicalWorks Submission
--- OUTSIDE RECORDS SUMMARY | 2017-07-15 18:40 | External Medical Summary ---
[...] Start End Status Dosage System Date Cymbalta [facility] 32410-5 60 MG Orally 1 capsule 237-01 [place] [address]-5 20 MG Orally 2 tablet 268-01 [place] [address]-0 500-50 MCG/DOSE 1 puff 697-00 Inhalation Twice a day Potassium Chloride [place] NDC 52323-8 10 MEQ Orally July 15, July 22, 1 tablet 043-00 Twice a day 2014 2014 [place] [address]-2 0.02 % Oct 22, Jan 11, as 989-62 Inhalation 2013 2014 directed every 6 hours as needed [place] [address]-6 108 (90 Base) Sept 26, 2 puffs as 851-85 MCG/ACT 2012 needed Inhalation every 4 hrs PredniSONE NDC 46223-5 10 MG Orally July 15, July 18, 6 tabs 017-20 2014 2014 daily x3 days, then 4 tabs daily x3 days, then 3 tabs daily x3 days, then 2 tabs daily x3 days, then 1 tab daily x3 day Albuterol Sulfate NDC 01563-2 (2.5 MG/3ML) Oct 22, 3 ml 990-52 0.083% 2013 Inhalation every 6 hrs as needed for COPD Ethan Dumont NDC 50168-1 100 MG Orally July 15September 09 capsule 122-01 Three times a 2014 07, as needed day as needed 2014 for cough/congestio n Levaquin NDC 45404-8 500 MG Orally July 15, July 22, 1 tablet 525-10 Once a day 2014 2014 Hydrochlorothiazide NDC 45247-2 25 MG Orally 1 capsule 256-01 Once a day Lasix NDC 52634-2 40 MG Orally July 15, 1 tablet 060-13 every 12 hours 2014 NIFEdipine ER NDC 71528-8 60 MG Orally 1 tablet 058-01 Once a day Nitrostat NDC 99549-6 0.4 MG 1 tablet 418-13 Sublingual under the every 0 hrs tongue and allow to dissolve as needed Clonidine HCl NDC 27545-8 0.2 MG Orally Apr 28, 1 tablet 128-10 BID 2013 Procedures Procedure Coding System Code Date COMPREHENSIVE METABOLIC PANEL CPT-4 14964 July 15, 2014 TSH CPT-4 96780 July 15, 2014 COMPLETE CBC W/AUTO DIFF WBC CPT-4 56184 July 15, 2014 HEMOGLOBIN AIC CPT-4 19484 July 15, 2014 OFFICE VISIT, EST-MOD. COMPLEXITY (25 MIN) CPT-4 78962 July 15, 2014 D DIMER QUANT CPT-4 01377 July 15, 2014 URINALYSIS, IN HOUSE CPT-4 90041 July 15, 2014 CREATINE KINASE (CPK) CPT-4 26466 July 15, 2014 TROPONIN CPT-4 94140 July 15, 2014 Vital Signs Date/Time: July 15, 2014 Height 69 in Weight 299.8 lbs Temperature 97.8 F Blood Pressure Diastolic 108 mm Hg Blood Pressure Systolic 148 mm Hg Cardiac Monitoring Heart Rate 112 /min BMI 44.27 Index Oximetry 97 % Respiratory Rate 26 /min Results No Known Results Summary Purpose eClinicalWorks Submission
--- OUTSIDE RECORDS SUMMARY | 2017-07-15 18:40 | External Medical Summary ---
[...] Medications Results No Known Results Summary Purpose [facility] [employer] Submission
--- OUTSIDE RECORDS SUMMARY | 2017-07-15 18:40 | External Medical Summary ---
[...] Medications Results No Known Results Summary Purpose [employer] Submission
--- OUTSIDE RECORDS SUMMARY | 2017-07-15 18:40 | External Medical Summary ---
[...] Status Dosage System Date NIFEdipine ER NDC 34975-3 60 MG Orally Active 1 tablet 058-01 Once a day BusPIRone HCl NDC 28136-5 10 MG Orally 1 Jan 13, Active 1 tablet 054-01 two x /day for 2013 2 wks, then 2 twice a day for 2 wks then 3 per day Ventolin HFA NDC 16734-2 108 (90 Base) Dec 19, Active 2 puffs as 682-20 MCG/ACT 2013 needed Inhalation every 4 hrs Loratadine NDC 14980-8 10 MG Orally May Active 1 tablet 674-10 Once a day 2013 [place] [address]-3 (2.5 MG/3ML) Oct 22, Active 3 ml 990-52 0.083% 2013 Inhalation [place] [address]-9 10-325 MG Mar 15, Active 1-2 tablet 035-00 Orally every 6 2014 as needed hrs (FILL ON/AFTER 02/17/14) [place] [address]-0 20 MG Orally Active 2 tablet 268-01 [place] [address]-0 300MG Orally May Active 3 tabs 608-16 Three times a 2012 [place] [address]-3 0.2 MG Orally Apr 28, Active 1 tablet 128-10 BID 2013 [place] [address]-4 108 (90 Base) Dec 05, Active 2 puffs as 851-85 MCG/ACT 2012 needed Inhalation every 4 [place] [address]-4 20 MG Orally Feb 11, Active 2 tablets Hydrobromide 741-01 Once a day 2012 [place] [address]-0 60 MG Orally Active 1 capsule 237-01 Twice [place] [address]-0 0.02 % Oct 22, Active as 989-62 Inhalation 2013 [place] [address]-7 0.4 MG Active 1 tablet 418-13 Sublingual under the every 0 hrs tongue and allow to dissolve as [place] [address]-3 50 MG Orally Active 1 capsule 257-01 [place] [address]-4 500-50 MCG/DOSE Active 1 puff 697-00 Inhalation Twice a day Procedures Procedure Coding System Code Date FLU VACCINE NO PRESERV 3 & > CPT-4 74858 Feb 13, 2014 ADMINISTRATION, 1ST IMMUNIZATION CPT-4 04112 Feb 13, 2014 OFFICE VISIT, EST-MOD. COMPLEXITY (25 MIN) CPT-4 46124 Feb 13, 2014 [facility] CPT [...]
--- OUTSIDE RECORDS SUMMARY | 2017-07-15 18:40 | External Medical Summary ---
[...] Start Date End Date Status Dosage Nitrostat [facility] 58881-151 0.4 MG Sublingual 1 tablet 8-13 every 5 min x 3 under the doses as needed tongue and for chest pain. allow to if chest pain dissolve call 911 Results No Known Results Summary Purpose [employer] Submission
--- OUTSIDE RECORDS SUMMARY | 2017-07-15 18:40 | External Medical Summary ---
[...] Medications Results No Known Results Summary Purpose [employer] Submission
--- OUTSIDE RECORDS SUMMARY | 2017-07-15 18:40 | External Medical Summary ---
[...] Date End Date Status Dosage Amoxicillin NDC 61476-568 500 MG Orally Mar 23, Apr 02, [...]
--- OUTSIDE RECORDS SUMMARY | 2017-07-15 18:40 | External Medical Summary ---
[...] Status Dosage [place] [address]-9 50 MG Orally Active 1 capsule 257-01 Once a day Lisinopril NDC 39064-0 20 MG Orally Active 2 tablet 268-01 [place] [address]-8 (2.5 MG/3ML) Active 3 ml 990-52 0.083% Inhalation PRN Advair Diskus NDC 84838-1 500-50 MCG/DOSE Active 1 puff 697-00 Inhalation [place] [address]-2 300MG Orally May Active 3 tabs 608-16 Three times a 2012 [place] [address]-1 0.2 MG Orally Apr 28, Active 1 tablet 128-10 BID 2013 [place] [address]-9 108 (90 Base) Dec 05, Active 2 puffs as 851-85 MCG/ACT 2012 needed Inhalation every 4 [place] [address]-9 60 MG Orally Active 1 capsule 237-01 [place] [address]-1 10 MG Orally May Active 1 tablet 674-10 Once a day 2013 Ipratropium [place] [facility] 11827-0 0.02 % Oct 24, Active as 989-62 Inhalation PRN 2013 directed [place] [facility] 15360-6 10-325 MG Oct 23, Active 1-2 tablet 035-00 Orally every 6 2013 [place] [address]-9 0.4 MG Active 1 tablet 418-13 Sublingual under the every 0 hrs tongue and allow to [place] [address]-4 60 MG Orally Active 1 tablet 058-01 Once a day Citalopram [facility] 16245-7 20 MG Orally Feb 11, Active 1 [...]
[2017-07-15] MEDS: D5NS 1,000 ML IV SCH (18:41)
--- OUTSIDE RECORDS SUMMARY | 2017-07-15 18:41 | External Medical Summary ---
[...] Dosage System Date Date Ethan Dumont NDC 19667-1 100 MG Orally July 15September 09 capsule 122-01 Three times a 2014 05, as needed day as needed 2014 for cough/congestio n NIFEdipine [place] NDC 28184-5 60 MG Orally 1 tablet 058-01 Once a day Albuterol Sulfate NDC 97731-8 (2.5 MG/3ML) Oct 22, 3 ml 990-52 0.083% 2013 Inhalation every 6 hrs as needed for COPD Lasix NDC 92878-1 40 MG Orally July 15, 1 tablet 060-13 every 8 hours 2014 PredniSONE NDC 42633-3 10 MG Orally July 15, July 18, 6 tabs 017-20 2014 2014 daily x3 days, then 4 tabs daily x3 days, then 3 tabs daily x3 days, then 2 tabs daily x3 days, then 1 tab daily x3 [place] [address]-7 10 MEQ Orally July 15July 22, 1 tablet 043-00 every 8 hours 2014 2014 [place] [address]-6 0.02 % Oct 22Jan 11, as 989-62 Inhalation 2013 2014 directed every 6 hours as [place]. [place] [address]-0 20 MG Orally 2 tablet 268-01 Once a day Nitrostat NDC 09656-8 0.4 MG 1 tablet 418-13 Sublingual under the every 0 hrs tongue and allow [place] as [place] [address]-5 60 MG Orally 1 capsule 237-01 Twice [place] [address]-6 25 MG Orally 1 capsule 256-01 [place] [address]-9 500 MG Orally July 15July 22, 1 tablet 525-10 Once a day 2014 2014 [place] [address]-8 0.2 MG Orally Apr 28, 1 tablet 128-10 BID 2013 [place] [address]-7 500-50 MCG/DOSE 1 puff 697-00 Inhalation [place] [address]-6 108 (90 Base) Dec 05, 2 puffs as 851-85 MCG/ACT 2012 needed Inhalation every 4 hrs Procedures Procedure Coding System Code Date OFFICE VISIT, EST-MOD. COMPLEXITY (25 MIN) CPT-4 13701 July 17, 2014 BASIC METABOLIC PANEL CPT-4 55776 July 17, 2014 Vital Signs Date/Time: July 17, 2014 Height 69 in Weight 300.0 lbs Temperature 97.9 F Blood Pressure Diastolic 89 mm Hg Blood Pressure Systolic 150 mm Hg Cardiac Monitoring Heart Rate 116 /min BMI 44.30 Index Oximetry 96 % Respiratory Rate 28 /min Results No Known Results Summary Purpose eClinicalWorks Submission
--- OUTSIDE RECORDS SUMMARY | 2017-07-15 18:41 | External Medical Summary ---
[...] Start Date End Date Status Dosage Albuterol [facility] 89053-645 (2.5 MG/3ML) Oct 13, 3 ml Sulfate 0-52 0.083% Inhalation 2013 every 6 hrs as needed for COPD Results No Known Results Summary Purpose eClinicalWorks Submission
--- OUTSIDE RECORDS SUMMARY | 2017-07-15 18:41 | External Medical Summary ---
[...] Status Dosage System Date Date Hydrochlorothiazide [facility] 94918-0 25 MG Orally 1 capsule 256-01 [place] [address]-5 0.2 MG Orally Apr 28 tablet 128-10 BID 2013 [place] [address]-8 18-103 MCG/ACT October 01 puff 4 013-14 Inhalation 2015 times a every 6 hours day as as needed for needed for shortness of SOA breath/[place] [address]-7 20 MEQ Orally 1 356-01 [place] [address]-5 60 MG Orally 1 capsule 237-01 [place] [address]-6 40 MG Orally July 15, 1 tablet 060-13 Twice every day 2014 Nebulizer NDC 20994-9 1 Dec 14, as 8249 2014 directed Advair Diskus NDC 36371-4 500-50 MCG/DOSE 1 puff 697-00 Inhalation Twice a day Nitrostat NDC 80246-5 0.4 MG 1 tablet 418-13 Sublingual under the every 0 hrs tongue and allow to dissolve as needed NIFEdipine ER NDC 45909-7 60 MG Orally 1 tablet 058-01 Once a day Advair Diskus NDC 59161-2 500-50 MCG/DOSE Dec 14, 1 puff 697-00 Inhalation 2014 Twice a day. samples given today. Ethan Dumont NDC 39686-7 100 MG Orally 1 capsule 122-01 Three times a as needed day Nebulizer/Tubing/Mouth NDC 07137-2 1 Dec 14, as piece 9000 2014 directed Ipratropium [place] NDC 21460-1 0.02 % Oct 22Jan 11, as 989-62 Inhalation 2013 2014 directed every 6 hours as needed for COPD. Lisinopril NDC 67096-5 20 MG Orally 2 tablet 268-01 Once a day Albuterol Sulfate NDC 63307-9 (2.5 MG/3ML) Oct 22, 3 ml 990-52 0.083% 2013 Inhalation every 6 hrs as needed for COPD Procedures Procedure Coding System Code Date OFFICE VISIT, EST-MOD. COMPLEXITY (25 MIN) CPT-4 03937 Dec 14, 2014 Vital Signs Date/Time: Dec 14, 2014 Height 69 in Weight 254.12 lbs Temperature 98.0 F Blood Pressure Diastolic 84 mm Hg Blood Pressure Systolic 136 mm Hg Cardiac Monitoring Heart Rate 83 /min BMI 37.52 Index Oximetry 94 % Respiratory Rate 16 /min Results No Known Results Summary Purpose eClinicalWorks Submission
--- OUTSIDE RECORDS SUMMARY | 2017-07-15 18:41 | External Medical Summary ---
[...] Medications Results No Known Results Summary Purpose [employer] Submission
--- OUTSIDE RECORDS SUMMARY | 2017-07-15 18:41 | External Medical Summary ---
[...] End Status Dosage System Date Date Cymbalta [facility] [address]-69 60 MG Orally 1 capsule Twice a day Hydrochlorothiazide [facility] [address]-02 25 MG Orally 1 capsule Once a day Nebulizer/Tubing/Mout [facility] 09[address]-64029 1 DX: J44.9 Jan 12, as hpiece 2014 directed Spironolactone [facility] [address]-88 25 MG Orally 1 tablet Once a day Oxygen ND 0 2 NC 2-3 continuous liters Advair Diskus [facility] 92649569317 500/50 1 puff Inhalation Twice a day Albuterol Sulfate [facility] [address]-62 (2.5 MG/3ML) Oct 22, 3 ml 0.083% 2013 Inhalation every 6 hrs as needed for COPD Prilosec OTC [facility] [address]-73113 20 MG Orally Apr 13, 1 tablet Once a day. 2016 take while on prednisone. ProAir HFA [facility] [address]-29 108 (90 Base) Apr 01, 1-2 puffs MCG/ACT 2015 as needed Inhalation every 6hrs Nebulizer/Tubing/Mout [facility] 35096-28620 Dec 14, as hpiece 2015 directed Nebulizer [facility] 67[address]-50078 1 Dec 14, as 2015 directed Clonidine HCl [facility] [address]-30 0.2 MG Orally Apr 28, 1 tablet BID 2013 Nitrostat [facility] [address]-69 0.4 MG 1 tablet Sublingual under the every 5 min x tongue 3 doses as and allow needed for to chest pain. if dissolve chest pain call 911 Carvedilol [facility] [address]-95 6.25 MG Orally 1 tablet Twice a day with food Lasix [facility] [address]-50 40 MG Orally July 15, 1 tablet Twice every 2014 day Lisinopril [facility] [address]-78 20 MG Orally 2 tablet Once a day NIFEdipine ER [facility] [address]-60 60 MG Orally 1 tablet Once a day Nebulizer [facility] 51656-13280 1 DX:J44.9 Jan 12, as 2014 directed Procedures Procedure Coding System Code Date LIPID PANEL CPT-4 45585 July 08, 2015 TSH CPT-4 82007 July 08, 2015 HEMOGLOBIN A1C, IN HOUSE CPT-4 51737 July 08, 2015 Results No Known Results Summary Purpose eClinicalWorks Submission
--- OUTSIDE RECORDS SUMMARY | 2017-07-15 18:41 | External Medical Summary ---
[...] Medications Results No Known Results Summary Purpose [employer] Submission
--- OUTSIDE RECORDS SUMMARY | 2017-07-15 18:41 | External Medical Summary ---
[...] End Status Dosage System Date Ethan Dumont [facility] 80981-7 100 MG Orally 1 capsule 122-01 Three times a as needed day Combivent [facility] 35453-1 18-103 MCG/ACT October 01, to 2 013-14 Inhalation 2014 puffs every 6 hours as needed for shortness of breath/[place] [address]-1 0.2 MG Orally Apr 28, tablet 128-10 BID 2013 [place] [address]-8 25 MG Orally 1 capsule 256-01 Once a day Potassium Chloride [facility] 73641-1 20 MEQ Orally 1 356-01 [place] [address]-5 40 MG Orally July 15, tablet 060-13 Twice every day 2014 Cymbalta NDC 66603-1 60 MG Orally 1 capsule 237-01 Twice a day Nitrostat NDC 86585-8 0.4 MG 1 tablet 418-13 Sublingual under the every 0 hrs tongue and allow to dissolve as needed NIFEdipine ER NDC 54335-7 60 MG Orally 1 tablet 058-01 Once a day Ipratropium [place] NDC 13199-9 0.02 % Oct 22, Jan 11, as directed 989-62 Inhalation 2013 2014 every 6 hours as needed for COPD. Lisinopril NDC 95092-4 20 MG Orally 2 tablet 268-01 Once a day Albuterol Sulfate NDC 03396-1 (2.5 MG/3ML) Oct 22, 3 ml 990-52 0.083% 2013 Inhalation every 6 hrs as needed for COPD Procedures Procedure Coding System Code Date OFFICE VISIT, EST-MOD. COMPLEXITY (25 MIN) CPT-4 21354 October 01, 2014 Vital Signs Date/Time: October 01, 2014 Height 69 in Weight 263.8 lbs Temperature 97.9 F Blood Pressure Diastolic 80 mm Hg Blood Pressure Systolic 126 mm Hg Cardiac Monitoring Heart Rate 89 /min BMI 38.95 Index Oximetry 94 % Respiratory Rate 22 /min Results No Known Results Summary Purpose eClinicalWorks Submission
--- OUTSIDE RECORDS SUMMARY | 2017-07-15 18:41 | External Medical Summary ---
[...] Date Status Dosage System Date Ipratropium NDC 01058-12 0.02 % Oct 22July 31, as directed [place] 89-62 Inhalation 2013 2014 [place] [address]-50 (2.5 MG/3ML) Oct 22, 3 ml Sulfate 90-52 0.083% 2013 Inhalation Three times a day Results No Known Results Summary Purpose [employer] Submission
--- OUTSIDE RECORDS SUMMARY | 2017-07-15 18:41 | External Medical Summary ---
[...] End Status Dosage System Date Date Lisinopril [facility] 91632-1 20 MG Orally 2 tablet 268-01 Once a day Ipratropium [place] [facility] 16933-8 0.02 % Oct 22, Jan 11, as directed 989-62 Inhalation 2013 2014 every 6 hours as needed for COPD. Combivent [facility] 61942-7 18-103 MCG/ACT October 01, 1 to 2 013-14 Inhalation 2014 puffs every 6 hours as needed for shortness of breath/wheezing Potassium Chloride [facility] 43320-4 20 MEQ Orally 1 356-01 [place] [address]-8 60 MG Orally 1 tablet 058-01 [place] [address]-5 25 MG Orally 1 capsule 256-01 [place] [address]-7 40 MG Orally July 15, 1 tablet 060-13 Twice every day 2014 Cymbalta [facility] 11502-3 60 MG Orally 1 capsule 237-01 [place] [address]-7 0.4 MG 1 tablet 418-13 Sublingual under the every 0 hrs tongue and allow to dissolve as needed [place] 72820-9 100 MG Orally 1 capsule 122-01 Three times a as needed day Clonidine HCl NDC 66916-6 0.2 MG Orally Apr 28, 1 tablet 128-10 BID 2013 Albuterol Sulfate NDC 39451-6 (2.5 MG/3ML) Oct 22, 3 ml 990-52 0.083% 2013 Inhalation every 6 hrs as needed for COPD Procedures Procedure Coding System Code Date COMPLETE CBC W/AUTO DIFF WBC CPT-4 95830 Oct 29, 2014 COMPREHENSIVE METABOLIC PANEL CPT-4 96662 Oct 29, 2014 URINALYSIS, IN HOUSE CPT-4 10558 Oct 29, 2014 TSH CPT-4 14313 Oct 29, 2014 LIPID PANEL CPT-4 75411 Oct 29, 2014 IH MicroAlb/Creat Ratio, Urine CPT-4 69417 Oct 29, 2014 IH MicroAlb/Creat Ratio, Urine CPT-4 47868 Oct 29, 2014 Results No Known Results Summary Purpose eClinicalWorks Submission
--- OUTSIDE RECORDS SUMMARY | 2017-07-15 18:41 | External Medical Summary ---
[...] Status Dosage System Date Date Advair Diskus [facility] 78764-3 500-50 MCG/DOSE Dec 14, 1 puff 697-00 Inhalation 2014 Twice a day. [place] [address]-9 60 MG Orally 1 capsule 237-01 [place] [address]-5 100 MG Orally 1 capsule 122-01 Three times a [place] [address]-1 0.2 MG Orally Apr 28, 1 tablet 128-10 BID 2013 [place] [address]-9 60 MG Orally 1 tablet 058-01 [place] [address]-0 20 MG Orally 2 tablet 268-01 [place] [address]-6 1 Dec 14, as 8249 2014 directed Lasix NDC 36777-3 40 MG Orally July 15, 1 tablet 060-13 Twice every day 2014 Ipratropium [place] NDC 74456-8 0.02 % Oct 22Jan 11, as 989-62 Inhalation 2013 2014 directed every 6 hours as needed for COPD. Spironolactone NDC 76882-7 25 MG Orally 1 tablet 803-11 Once a day Carvedilol NDC 08648-9 6.25 MG Orally 1 tablet 135-01 Twice a day with food Albuterol Sulfate NDC 08738-6 (2.5 MG/3ML) Oct 22, 3 ml 990-52 0.083% 2013 Inhalation every 6 hrs as needed for COPD Nitrostat NDC 74766-4 0.4 MG 1 tablet 418-13 Sublingual under the every 5 min x 3 tongue and doses as needed allow to for chest pain. dissolve if chest pain call 911 Hydrochlorothiazide NDC 65837-8 25 MG Orally 1 capsule 256-01 Once a day Combivent NDC 38915-5 18-103 MCG/ACT October 01, 1 puff 4 013-14 Inhalation 2015 times a every 6 hours day as as needed for needed for shortness of SOA breath/wheezing Advair [place]us [place] 52198-5 500-50 MCG/DOSE 1 puff 697-00 Inhalation Twice a day Nebulizer/Tubing/Mouth NDC 02772-1 1 Dec 14, as piece 9000 2014 directed Procedures Procedure Coding System Code Date OFFICE VISIT, EST-LOW COMPLEXITY (15 MIN.) CPT-4 17453 Dec 28, 2014 Vital Signs Date/Time: Dec 28, 2014 Height 69 in Weight 259 lbs Temperature 97.6 F Blood Pressure Diastolic 56 mm Hg Blood Pressure Systolic 96 mm Hg Cardiac Monitoring Heart Rate 69 /min BMI 38.24 Index Oximetry 87 % Respiratory Rate 20 /min Results No Known Results Summary Purpose eClinicalWorks Submission
--- OUTSIDE RECORDS SUMMARY | 2017-07-15 18:41 | External Medical Summary ---
[...] Start Date End Date Status Dosage Albuterol [facility] 14938-928 (2.5 MG/3ML) Oct 13, 3 ml Sulfate 0-52 0.083% Inhalation 2013 every 6 hrs as needed for COPD Results No Known Results Summary Purpose [employer] Submission
--- OUTSIDE RECORDS SUMMARY | 2017-07-15 18:41 | External Medical Summary ---
:1965 [facility] Providers Name Role Phone Bobbi [...] Status Dos[place] [address]-2 40 MG Orally July 15, 1 tablet 060-13 Twice every day 2014 [place] [address]-1 60 MG Orally 1 capsule 237-01 [place] [address]-1 20 MG Orally 2 tablet 268-01 Once a day Advair Diskus NDC 85943-1 500-50 MCG/DOSE Dec 14, puff 697-00 Inhalation 2014 Twice a day. samples given today. Clonidine HCl NDC 06946-1 0.2 MG Orally Apr 28, 1 tablet 128-10 BID 2013 NIFEdipine [place]DC 20260-0 60 MG Orally 1 tablet 058-01 Once a day Spironolactone NDC 50696-3 25 MG Orally 1 tablet 803-11 Once a day Carvedilol NDC 50197-8 6.25 MG Orally 1 tablet 135-01 Twice a day with food Nebulizer NDC 26701-8 Dec 14, as 8249 2014 directed Nebulizer/Tubing/Mouth NDC 32140-6 Dec 14, as piece 9000 2014 directed Ipratropium [place] NDC 54654-4 0.02 % Oct 22Jan 11, as 989-62 Inhalation 2013 2014 directed every 6 hours as needed for COPD. Hydrochlorothiazide NDC 70985-0 25 MG Orally 1 capsule 256-01 [place] [address]-3 18-103 MCG/ACT October 01, 1 puff 4 013-14 Inhalation 2015 times a every 6 hours day as as needed for needed for shortness of SOA breath/wheezing Nitrostat NDC 98306-7 0.4 MG 1 tablet 418-13 Sublingual under the every 5 min x 3 tongue and doses as needed allow to for chest pain. dissolve if chest pain call 911 Tessalalina Dumont NDC 46516-7 100 MG Orally 1 capsule 122-01 Three times a [place] [address]-0 (2.5 MG/3ML) Oct 22, 3 ml 990-52 0.083% 2013 Inhalation every 6 hrs as needed for COPD Advair Diskus NDC 17413-7 500-50 MCG/DOSE 1 puff 697-00 Inhalation Twice a day Procedures Procedure Coding System Code Date COMPREHENSIVE METABOLIC PANEL CPT-4 97084 Dec 28, 2014 Results No Known Results Summary Purpose eClinicalWorks Submission
--- OUTSIDE RECORDS SUMMARY | 2017-07-15 18:41 | External Medical Summary ---
[...] System Code Date D DIMER QUANT CPT-4 57153 Apr 14, 2015 Results No Known Results Summary Purpose [employer] Submission
--- OUTSIDE RECORDS SUMMARY | 2017-07-15 18:42 | External Medical Summary ---
[...] Medications Results No Known Results Summary Purpose [employer] Submission
--- NOTE | 2017-07-15 18:58 | Emergency Department Report ---
General Adult HPI - General Chief complaint: Medical Emergency Stated complaint: hypoglycemia, meth use Time Seen by Provider: 07/15/17 18:28 - History of Present Illness HPI narrative: 52-year-old male presents with a hypoglycemic episode. Patient was using methamphetamine yesterday, uncertain if he used today. Apparently the apartment in which he lives has 2 other roommates which also uses methamphetamine. It is uncertain if he uses insulin. There is no insulin in his bag of medications. Also uncertain how much methamphetamine or other drugs he may have used. We do not know when he ate last. He is unresponsive at this time, having been sedated by EMS. 45 minutes of combat with EMS before they could get him settled on a cot for transport. Sugar documented at 25 at time of visit. Patient was given 2 mg of Ativan which did ultimately settling down and he is now sleeping. He was brought in in 4 point restraints due to behavioral issues. - Related Data Previous Rx's Medication Instructions Recorded Acetaminophen [Tylenol] 325 - 650 mg PO Q5H PRN tab 05/03/17 ALPRAZolam [Xanax] 0.5 mg PO TID PRN #15 tab 06/20/17 Albuterol Neb (0.083%) [Proventil 2.5 mg AEROSOL QID #120 vial 06/20/17 Neb (0.083%)] Amiodarone [Pacerone] 200 mg PO DAILY #30 tab 06/20/17 Budesonide Inhalation [Pulmicort 0.5 mg INH BID #60 vial 06/20/17 Inhalation] Carvedilol [Coreg] 3.125 mg PO BIDWM #60 tab 06/20/17 Furosemide [Lasix 40 mg Tab] 40 mg PO DAILY #30 tab 06/20/17 Gabapentin [Neurontin] 300 mg PO TID #90 cap 06/20/17 Hydrocodone/APAP 5/325 [[place] 1 tab PO Q4H PRN #20 tab 06/20/17 5/325] Ipratropium [place] 1 dose AEROSOL QID #120 bottle 06/20/17 Lisinopril [Prinivil] 2.5 mg PO DAILY #30 tab 06/20/17 Rivaroxaban [Xarelto] 20 mg PO WS #30 tab 06/20/17 Sertraline [Zoloft] 50 mg PO DAILY #30 tab 06/20/17 Simvastatin [Zocor] 20 mg PO HS #30 tab 06/20/17 Allergies Allergy/AdvReac Type Severity Reaction Status Date / Time No Known Drug Allergies Allergy Unknown Verified 06/09/17 02:20 Review of Systems Limitations: ROS unobtainable due to patient's medical condition [facility] Patient Stated Medical History Congestive Heart Failure Yes Hypertension Yes Asthma Yes Chronic Obstructive Pulmonary Yes Disease (COPD) Pneumonia Yes Sleep Apnea Yes Diabetes Mellitus Type 2 Yes Osteoarthritis Yes MRSA Yes Depression Yes: [facility] Medical History (Last Updated 06/09/17 @ 05:21 by Manny Stout MD) CHF (congestive heart failure) (Acute Medical) Coronary artery disease (Acute Medical) Sleep apnea (Acute Medical) Surgical History: Heart catheterization-2015- Patent coronaries. Right Shoulder arthroscopy. cholecystectomy Family History Updates: father of HTN and etoh - Social History Smoking status: Current every day smoker Substance use type: methamphetamine Alcohol intake frequency: does not drink Housing: house Household members: children Current occupational status: disabled Current residence: Apartment/Private Home Physical Exam - Limitations Limitations: altered mental status - General General appearance: obtunded - Normal Exams: Head:: Normocephalic without trauma Chest/Respirations:: Clear all park, with good airflow, and symmetry bilaterally Cardiovascular:: Regular rate and rhythm, without murmur or gallop, Pulses 2+ all extremities, capillary refill, <2 seconds all extremities Course Course Narrative: 4 restraints continued at this time. This is for both the safety of the patient and medical staff. As soon as he is responsive and able to commit to behavior, we will plan to remove the restraints. Vital Signs Temperature 97.7 F 07/15/17 18:16 Pulse Rate 91 07/15/17 18:16 Respiratory Rate 22 07/15/17 18:16 Blood Pressure 108/61 07/15/17 18:16 Pulse Oximetry 94 07/15/17 18:16 Temperature 97.7 F 07/15/17 18:16 Pulse Rate 91 07/15/17 18:16 Respiratory Rate 22 07/15/17 18:16 Blood Pressure 108/61 07/15/17 18:16 Pulse Oximetry 94 07/15/17 18:16 Medical Decision Making - MDM Narrative Medical decision making narrative: Altered mental status with aggressive behavior. Methamphetamine abuse with "overdose" overnight and hypoglycemic episode. Patient to be sedated by EMS as he was fighting and biting when they arrived.. Labs show positive methamphetamine but no other etiology. He has had significant hypoglycemia. He was given 2 mg Ativan IM which left him sedated. He was also in 4. restraints on arrival. We continued the restraints and had Ativan on a when necessary order , but did not need to repeat the dose. D5 NS started to 50 ml/hr. Patient's blood sugars returned between 100-115. Renal insufficiency noted with elevated creatinine. Patient also had elevated potassium of 5.5. This was discussed with hospitalist and is a complex medical balance. We did slow fluids because of the cardiomyopathy with 10-15% ejection fraction. Therefore we'll continue the D5 NS at 75 mL per hour and watch sugars to supplement with D50 if needed. Patient is being admitted to CCU. Acetaminophen and aspirin levels are pending. CT head was not obtained as will watch for recovery from Ativan dosage. He is currently in restraints and we are unable to move him into a CT machine out of concerns for his prior aggressiveness. - Differential Diagnosis drug overdose, hypoglycemic episode, hyperkalemia, head trauma - Lab Data Result diagrams: 07/15/17 19:07 07/15/17 19:07 Lab Results 07/15/17 07/15/17 07/15/17 Range/Units 18:25 18:46 18:46 WBC (4.5-11.0) T/MM3 RBC (4.50-5.90) M/MM3 Hgb (13.5-17.5) GM/DL Hct (41-53) % MCV (80-100) UM3 MCH (26-34) UUG MCHC (31-37) GM/DL RDW Std Deviation (36.9-50.2) FL Plt Count (130-400) T/MM3 MPV (9.4-12.4) UM3 Immature Gran % (Auto) Neut % (Auto) Lymph % (Auto) [place] % (Auto) Eos % (Auto) Baso % (Auto) Neut # (Auto) Lymph # (Auto) [place] # (Auto) Eos # (Auto) Baso # (Auto) Abs Immat Gran (auto) Neutrophils % (Manual) (33-66) % Lymphocytes % (Manual) (23-45) % Monocytes % (Manual) (0-9.0) % Neutrophils # (Manual) (1.8-7.7) T/MM3 Lymphocytes # (Manual) (1-4.8) T/MM3 Monocytes # (Manual) (0-0.8) T/MM3 RBC Morph Comment Turbidity (0-20) Sodium (134-144) MEQ/L Potassium (3.6-5) MEQ/L Chloride (98-107) MEQ/L Carbon Dioxide (22-30) MEQ/L Anion Gap (5-15) meq/L BUN (9-20) MG/DL Creatinine (0.8-1.5) mg/dL GFR Calculation BUN/Creatinine Ratio (6-26) RATIO Glucose (75-110) MG/DL Glucometer 84 (65-110) mg/dL Calculated Osmolality (261-280) MOSM/KG Calcium (8.4-10.2) MG/DL Total Bilirubin (0.20-1.30) MG/DL Icterus Index (0-7) AST (17-59) U/L ALT (1-50) U/L Alkaline Phosphatase (38-126) U/L Total Protein (6.3-8.2) g/dL Albumin (3.5-5.0) g/dL Globulin (2.4-3.6) G/DL Albumin/Globulin Ratio (1.1-2.2) RATIO Specimen Hemolysis (0-25) Ur Collection Type Urine Color (YELLOW) Urine Clarity Urine pH (5.0-8.0) Ur Specific [place] (1.015-1.025) Urine Protein (NEGATIVE) Urine Glucose (UA) (NEGATIVE) Urine Ketones (NEGATIVE) Urine Occult Blood (NEGATIVE) Urine Nitrate (NEGATIVE) Urine Bilirubin (NEGATIVE) Urine Urobilinogen (NORMAL) EU/DL Ur Leukocyte Esterase (NEGATIVE) Urine RBC (0-3) /HPF Urine WBC (0-5) /HPF Ur Squamous Epith Cells Amorphous Sediment Urine Bacteria (NEGATIVE) Hyaline Casts /LPF Ur Culture Indicated? Urine Opiates Screen Negative ng/mL Ur Oxycodone Screen Negative ng/mL Urine Methadone Screen Negative ng/mL Ur Propoxyphene Screen Negative ng/mL Ur Barbiturates Screen Negative ng/mL U Tricyclic Antidepress Negative ng/mL Ur Phencyclidine Scrn Negative ng/mL Ur Amphetamines Screen Positive ng/mL U Methamphetamines Scrn Positive ng/mL U Benzodiazepines Scrn Negative ng/mL Urine Cocaine Screen Negative ng/mL U Cannabinoids Screen Negative ng/mL Ur Drug Screen Confirm Sent out 07/15/17 07/15/17 07/15/17 Range/Units 18:47 19:07 19:07 WBC 16.4 H (4.5-11.0) T/MM3 RBC 4.07 L (4.50-5.90) M/MM3 Hgb 11.3 L (13.5-17.5) GM/DL Hct 35.8 L (41-53) % MCV 88.0 (80-100) UM3 MCH 27.8 (26-34) UUG MCHC 31.6 (31-37) GM/DL RDW Std Deviation 54.8 H (36.9-50.2) FL Plt Count 176 D (130-400) T/MM3 MPV 10.9 (9.4-12.4) UM3 Immature Gran % (Auto) Not performed Neut % (Auto) Not performed Lymph % (Auto) Not performed [place] % (Auto) Not performed Eos % (Auto) Not performed Baso % (Auto) Not performed Neut # (Auto) Not performed Lymph # (Auto) Not performed [place] # (Auto) Not performed Eos # (Auto) Not performed Baso # (Auto) Not performed Abs Immat Gran (auto) Not performed Neutrophils % (Manual) 87.0 H (33-66) % Lymphocytes % (Manual) 11.0 L (23-45) % Monocytes % (Manual) 2.0 (0-9.0) % Neutrophils # (Manual) 14.3 H (1.8-7.7) T/MM3 Lymphocytes # (Manual) 1.8 (1-4.8) T/MM3 Monocytes # (Manual) 0.3 (0-0.8) T/MM3 RBC Morph Comment Normal Turbidity < 20 (0-20) Sodium 142 (134-144) MEQ/L Potassium 5.5 H (3.6-5) MEQ/L Chloride 98 (98-107) MEQ/L Carbon Dioxide 22 (22-30) MEQ/L Anion Gap 22 H (5-15) meq/L BUN 43.0 H (9-20) MG/DL Creatinine 2.4 H (0.8-1.5) mg/dL GFR Calculation 29 BUN/Creatinine Ratio 18 (6-26) RATIO Glucose 111 H (75-110) MG/DL Glucometer (65-110) mg/dL Calculated Osmolality 285 H (261-280) MOSM/KG Calcium 9.5 (8.4-10.2) MG/DL Total Bilirubin 5.10 H (0.20-1.30) MG/DL Icterus Index < 2 (0-7) AST 431 H (17-59) U/L ALT 174 H (1-50) U/L Alkaline Phosphatase 129 H (38-126) U/L Total Protein 7.3 (6.3-8.2) g/dL Albumin 4.0 (3.5-5.0) g/dL Globulin 3.3 (2.4-3.6) G/DL Albumin/Globulin Ratio 1.2 (1.1-2.2) RATIO Specimen Hemolysis 63 H (0-25) Ur Collection Type Urine, cath straight Urine Color Yellow (YELLOW) Urine Clarity Sl cloudy Urine pH 5.0 (5.0-8.0) Ur Specific [place] >=1.030 H (1.015-1.025) Urine Protein 2+ A (NEGATIVE) Urine Glucose (UA) Negative (NEGATIVE) Urine Ketones Negative (NEGATIVE) Urine Occult Blood Trace-lysed (NEGATIVE) Urine Nitrate Negative (NEGATIVE) Urine Bilirubin 1+ A (NEGATIVE) Urine Urobilinogen 1.0 (NORMAL) EU/DL Ur Leukocyte Esterase Negative (NEGATIVE) Urine RBC 1-3 (0-3) /HPF Urine WBC 5-10 H (0-5) /HPF Ur Squamous Epith Cells 0-5 Amorphous Sediment Moderate Urine Bacteria 1+ H (NEGATIVE) Hyaline Casts 1-3 /LPF Ur Culture Indicated? Cult not indicated Urine Opiates Screen ng/mL Ur Oxycodone Screen ng/mL Urine Methadone Screen ng/mL Ur Propoxyphene Screen ng/mL Ur Barbiturates Screen ng/mL U Tricyclic Antidepress ng/mL Ur Phencyclidine Scrn ng/mL Ur Amphetamines Screen ng/mL U Methamphetamines Scrn ng/mL U Benzodiazepines Scrn ng/mL Urine Cocaine Screen ng/mL U Cannabinoids Screen ng/mL Ur Drug Screen Confirm 07/15/17 Range/Units 20:34 WBC (4.5-11.0) T/MM3 RBC (4.50-5.90) M/MM3 Hgb (13.5-17.5) GM/DL Hct (41-53) % MCV (80-100) UM3 MCH (26-34) UUG MCHC (31-37) GM/DL RDW Std Deviation (36.9-50.2) FL Plt Count (130-400) T/MM3 MPV (9.4-12.4) UM3 Immature Gran % (Auto) Neut % (Auto) Lymph % (Auto) [place] % (Auto) Eos % (Auto) Baso % (Auto) Neut # (Auto) Lymph # (Auto) [place] # (Auto) Eos # (Auto) Baso # (Auto) Abs Immat Gran (auto) Neutrophils % (Manual) (33-66) % Lymphocytes % (Manual) (23-45) % Monocytes % (Manual) (0-9.0) % Neutrophils # (Manual) (1.8-7.7) T/MM3 Lymphocytes # (Manual) (1-4.8) T/MM3 Monocytes # (Manual) (0-0.8) T/MM3 RBC Morph Comment Turbidity (0-20) Sodium (134-144) MEQ/L Potassium (3.6-5) MEQ/L Chloride (98-107) MEQ/L Carbon Dioxide (22-30) MEQ/L Anion Gap (5-15) meq/L BUN (9-20) MG/DL Creatinine (0.8-1.5) mg/dL GFR Calculation BUN/Creatinine Ratio (6-26) RATIO Glucose (75-110) MG/DL Glucometer 122 (65-110) mg/dL Calculated Osmolality (261-280) MOSM/KG Calcium (8.4-10.2) MG/DL Total Bilirubin (0.20-1.30) MG/DL Icterus Index (0-7) AST (17-59) U/L ALT (1-50) U/L Alkaline Phosphatase (38-126) U/L Total Protein (6.3-8.2) g/dL Albumin (3.5-5.0) g/dL Globulin (2.4-3.6) G/DL Albumin/Globulin Ratio (1.1-2.2) RATIO Specimen Hemolysis (0-25) Ur Collection Type Urine Color (YELLOW) Urine Clarity Urine pH (5.0-8.0) Ur Specific [place] (1.015-1.025) Urine Protein (NEGATIVE) Urine Glucose (UA) (NEGATIVE) Urine Ketones (NEGATIVE) Urine Occult Blood (NEGATIVE) Urine Nitrate (NEGATIVE) Urine Bilirubin (NEGATIVE) Urine Urobilinogen (NORMAL) EU/DL Ur Leukocyte Esterase (NEGATIVE) Urine RBC (0-3) /HPF Urine WBC (0-5) /HPF Ur Squamous Epith Cells Amorphous Sediment Urine Bacteria (NEGATIVE) Hyaline Casts /LPF Ur Culture Indicated? Urine Opiates Screen ng/mL Ur Oxycodone Screen ng/mL Urine Methadone Screen ng/mL Ur Propoxyphene Screen ng/mL Ur Barbiturates Screen ng/mL U Tricyclic Antidepress ng/mL Ur Phencyclidine Scrn ng/mL Ur Amphetamines Screen ng/mL U Methamphetamines Scrn ng/mL U Benzodiazepines Scrn ng/mL Urine Cocaine Screen ng/mL U Cannabinoids Screen ng/mL Ur Drug Screen Confirm Disposition Disposition: 02 To [facility] [place] [facility]
--- NOTE | 2017-07-15 21:05 | History & Physical Report ---
History of Present Illness Date: 07/15/17 Chief complaint: unable to give (found unresponsive) HPI: 52 year old male brought in by EMS after roommates notified them patient found unresponsive. Pt unable to give history and no witnesses able to assist at this time. EMS was told he has been using meth. Blood sugar on site was 29. No known use of insulin. Reportedly had used last night but not sure if today. Pt was reportedly combative and dangerous/violent and received 2 mg IM ativan and had been quite sedated following that. In ER needing D5 at 250 cc / hour to keep sugars up above 100. I have reviewed last discharge summary from June. Review of Systems ROS unobtainable: due to mental status Past Medical History Medical History: Medical History (Last Updated 06/09/17 @ 05:21 by Manny Stout MD) CHF (congestive heart failure) Coronary artery disease Sleep apnea Surgical History: Heart catheterization-2014- Patent coronaries. Right Shoulder arthroscopy. cholecystectomy Family History: Unable to Obtain (sedated) - Social History Smoking status: Current every day smoker Substance use type: methamphetamine Substance last used: hours (ago) (several to 24) Current residence: Apartment/Private Home Medications Home Medications Medication Instructions Recorded Confirmed Type Acetaminophen [Tylenol] 325 - 650 mg PO Q5H PRN tab 05/03/17 06/09/17 Rx ALPRAZolam [Xanax] 0.5 mg PO TID PRN #15 tab 06/20/17 Rx Albuterol Neb (0.083%) [Proventil 2.5 mg AEROSOL QID #120 vial 06/20/17 Rx Neb (0.083%)] Amiodarone [Pacerone] 200 mg PO DAILY #30 tab 06/20/17 Rx Budesonide Inhalation [Pulmicort 0.5 mg INH BID #60 vial 06/20/17 Rx Inhalation] Carvedilol [Coreg] 3.125 mg PO BIDWM #60 tab 06/20/17 Rx Furosemide [Lasix 40 mg Tab] 40 mg PO DAILY #30 tab 06/20/17 Rx Gabapentin [Neurontin] 300 mg PO TID #90 cap 06/20/17 Rx Hydrocodone/APAP 5/325 [[place] 1 tab PO Q4H PRN #20 tab 06/20/17 Rx 5/325] Ipratropium [place] 1 dose AEROSOL QID #120 bottle 06/20/17 Rx Lisinopril [Prinivil] 2.5 mg PO DAILY #30 tab 06/20/17 Rx Rivaroxaban [Xarelto] 20 mg PO WS #30 tab 06/20/17 Rx Sertraline [Zoloft] 50 mg PO DAILY #30 tab 06/20/17 Rx Simvastatin [Zocor] 20 mg PO HS #30 tab 06/20/17 Rx Allergies Allergy/AdvReac Type Severity Reaction Status Date / Time No Known Drug Allergies Allergy Unknown Verified 06/09/17 02:20 Exam Vital Signs: Temperature 97.7 F 07/15/17 18:16 Pulse Rate 91 07/15/17 18:16 Respiratory Rate 22 07/15/17 18:16 Blood Pressure 108/61 07/15/17 18:16 Pulse Oximetry 94 07/15/17 18:16 Height/Weight/BMI: Height 1.83 m Weight 132.2 kg Comments: obtunded but some movement/sedated PERRL lungs fairly clear bilaterally but anteriorly CV reg s m abd obese with redness / cellulitis noted on abd wall, no abscess seen extr trace edema morbidly obese Results - Labs CBC & Chem 7: 07/15/17 19:07 07/15/17 19:07 Assessment and Plan (1) Methamphetamine intoxication Current visit: Yes Status: Acute (2) Methamphetamine substance use disorder, mild, in sustained remission, in controlled environment, abuse Current visit: Yes Status: Acute (3) Hypoglycemia Current visit: Yes Status: Acute (4) Metabolic encephalopathy Current visit: Yes Status: Acute (5) Dilated cardiomyopathy Problem details: EF 10-15% with 3/4 diastolic dysfunction on 06/11/17 EF 30% on TTE done 10/2015; global hypokinesis and dilated LV; EF 55% 09/2016 Current visit: No Status: Chronic (6) Hypertension Problem details: Off all medications for > 6 months, uncontrolled Current visit: No Status: Acute (7) COPD, severe Problem details: on 3L NC chronically at home Current visit: No Status: Chronic (8) Tobacco dependence syndrome Problem details: Ongoing, discussed cessation, unclear how much he is smoking routinely Current visit: No Status: Acute (9) Anxiety Problem details: Severe and chronic, untreated, exacerbated by dyspnea Current visit: No Status: Acute (10) Congestive heart failure Current visit: No Status: Acute (11) Abdominal wall cellulitis Current visit: Yes Status: Acute (12) Severe sepsis Current visit: Yes Status: Acute Assessment and Plan: 1. Acute hypoglycemia - wonder if used needles with insulin in them? Could be toxic effects of meth 2. Acute methamphetamine intoxication with agitation and encephalopathy 3. Chronic systolic CHF from NICM - EKG looks unchanged 4. VALARIE 5. COPD - 6. Morbid obesity 7. acute Renal failure- 8. hyperbilirubinemia and elevated liver enzymes 9. Possible acute/ recurrent cellulitis 10. Possible acute severe sepsis (lactate > 2, cellulitis) Present on admit Plans 1. check ABG - concerned about 2. BELINDA w serial enzymes 3. Ativan PRN and restraints for patient and staff safety 4. IV rocephin x 1 for abd wall cellulitis, start vanco in AM when better IV access avaialbe, asked nursing to cassandra cellulitis w line 5. get off iv fluids fouzia with recent CHF issues 6. Nebs PRN, no wheezing noted and minimal O2 requrements at this time 7. Follow labs, check liver panel in AM and abd sono Critically ill guarded prognosis his health was in terrible shape w/o meth use, adding this is potentially deadly DVT Prophylaxis: SCD's GI Prophylaxis: Protonix Resuscitation Status: Full Code - Physician Narrative Narrative: Date: 07/15/17 Time: 2056 Sepsis Assessment - Evaluation SIRS Criteria: pulse > 90 beats/minute, WBC > 12,000 Severe Sepsis: lactate > 2.0 mg/dL Hospital Course Summary Disclaimer: The visit summary below is not to be considered part of the above Progress Note.
[2017-07-15] MEDS ORDERED: MORPHINE SULFATE 2mg INJ IVP PRN (21:51)
[2017-07-15] MEDS ORDERED: METOCLOPRAMIDE 10mg/2ml INJECTION IVP PRN (21:51)
[2017-07-15] MEDS ORDERED: ONDANSETRON 4 MG/2 ML INJECTION IVP PRN (21:51)
[2017-07-15] MEDS ORDERED: D5-1/2NS 1,000 ML IV SCH (22:00)
[2017-07-15] MEDS ORDERED: CEFTRIAXONE 1 G in NS 100 ML IV ONE (22:19)
[2017-07-15 22:50] VITALS: BMI 39.9
[2017-07-16] MEDS: D5NS 1,000 ML IV SCH ×2 (00:14→04:50)
[2017-07-16] MEDS ORDERED: FALL RISK - PHARMACY CONSULT MC ONE (00:49)
[2017-07-16] MEDS ORDERED: VANCOMYCIN - PHARMACY CONSULT MC ONE (06:22)
--- NOTE | 2017-07-16 09:30 | Pulmonology Consult Note ---
<Parisa Johnson - Last Filed: 07/16/17 09:25> History of Present Illness Consult date: 07/16/17 Requesting physician: Kaye Mccormick Reason for consult: COPD, other (Respiratory Failure) Chief complaint: Unresponsive History of present illness: This is a 52 yo male with a Hx of severe COPD, Systolic HF and atrial fibrillation. He is known from previous hospitalizations with his COPD and respiratory failure. He was apparently found down at home by friends but unaware of how long he was down either. EMS was called and he was brought to the [facility] ER, BS was 29 and noted to be agitated/combative. Was given ativan and started on D5 for hypoglycemia and transferred to ICU. ABG was 7.23/73/43 and was started on bipap. We have been consulted for his respiratory issues and appreciate the consult. He is a poor historian at this time with recent methamphetamine use, unsure how well he has been using his home meds and equipment. Review of Systems ROS unobtainable: due to mental status, other Review of systems: Pt currently on bipap and hard to understand and still confused on events. [facility] Patient Stated Medical History Congestive Heart Failure Yes Hypertension Yes Sleep Apnea Yes Diabetes Mellitus Type 2 Yes Osteoarthritis Yes MRSA Yes Depression Yes: manic Clinic Medical History (Last Updated 06/09/17 @ 05:21 by Manny Stout MD) CHF (congestive heart failure) (Acute Medical) Coronary artery disease (Acute Medical) Sleep apnea (Acute Medical) Surgical History: Heart catheterization-2015- Patent coronaries. Right Shoulder arthroscopy. cholecystectomy Family History Updates: father of HTN and etoh - Social History Smoking status: Current every day smoker Substance use type: methamphetamine Substance last used: hours (ago) (several to 24) Alcohol intake frequency: does not drink Housing: house Household members: children Current occupational status: disabled Current residence: Apartment/Private Home Medications Home Medications Medication Instructions Recorded Confirmed Type Acetaminophen [Tylenol] 325 - 650 mg PO Q5H PRN tab 05/03/17 06/09/17 Rx ALPRAZolam [Xanax] 0.5 mg PO TID PRN #15 tab 06/20/17 07/16/17 Rx Albuterol Neb (0.083%) [Proventil 2.5 mg AEROSOL QID #120 vial 06/20/17 Rx Neb (0.083%)] Amiodarone [Pacerone] 200 mg PO DAILY #30 tab 06/20/17 07/16/17 Rx Budesonide Inhalation [Pulmicort 0.5 mg INH BID #60 vial 06/20/17 Rx Inhalation] Carvedilol [Coreg] 3.125 mg PO BIDWM #60 tab 06/20/17 07/16/17 Rx Furosemide [Lasix 40 mg Tab] 40 mg PO DAILY #30 tab 06/20/17 07/16/17 Rx Gabapentin [Neurontin] 300 mg PO TID #90 cap 06/20/17 Rx Hydrocodone/APAP 5/325 [[place] 1 tab PO Q4H PRN #20 tab 06/20/17 Rx 5/325] Ipratropium [place] 1 dose AEROSOL QID #120 bottle 06/20/17 Rx Lisinopril [Prinivil] 2.5 mg PO DAILY #30 tab 06/20/17 07/16/17 Rx Rivaroxaban [Xarelto] 20 mg PO WS #30 tab 06/20/17 07/16/17 Rx Sertraline [Zoloft] 50 mg PO DAILY #30 tab 06/20/17 07/16/17 Rx Simvastatin [Zocor] 20 mg PO HS #30 tab 06/20/17 07/16/17 Rx Allergies Allergy/AdvReac Type Severity Reaction Status Date / Time No Known Drug Allergies Allergy Unknown Verified 06/09/17 02:20 Exam Vital signs: Temperature 97.8 F 07/15/17 21:30 Pulse Rate 69 07/16/17 07:53 Respiratory Rate 31 H 07/16/17 08:31 Blood Pressure 125/59 07/16/17 07:46 Pulse Oximetry 99 07/16/17 07:46 - Constitutional no acute distress, obese, agitated - Routine HEENT Exam Head: Present: normocephalic, atraumatic Eye: Present: EOMI, PERRL - Routine Neck Exam Present: supple, full ROM, trachea midline - Routine Respiratory Exam Present: decreased breath sounds. Absent: accessory muscle use, patient mechanically ventilated, wheezes - Routine Cardiovascular Exam Present: RRR, S1, S2 - Routine Abdominal Exam Present: soft, non distended, non tender - Routine Extremities Exam Present: edema, non tender, full ROM. Absent: cyanosis, clubbing - Routine Back/Spine/Pelvis Exam Back/Spine: Present: full ROM - Routine Skin Exam Present: intact, dry - Routine Neurological Exam Present: alert, CN II-XII intact Is oriented x 3 but still gets very agitated and confused about recent events. - Routine Psychiatric Exam Absent: good insight, good judgment Results - Laboratory Findings CBC and BMP: 07/16/17 04:39 07/16/17 04:39 ABG ABG pH 7.301 (7.350-7.450) L 07/16/17 06:59 ABG pCO2 62 MMHG (34.0-45.0) H* 07/16/17 06:59 ABG pO2 60.7 MMHG (80.0-100.0) L 07/16/17 06:59 ABG O2 Saturation 87.3 % (95.0-98.0) L 07/16/17 06:59 Abnormal lab findings: Abnormal Labs 07/15/17 07/15/17 07/16/17 22:54 23:06 00:00 WBC Hgb Hct RDW Std Deviation Neutrophils % (Manual) Lymphocytes % (Manual) Monocytes % (Manual) Neutrophils # (Manual) Monocytes # (Manual) ABG pH 7.232 L ABG pCO2 73 H* ABG pO2 43.2 L ABG HCO3 30.8 H ABG Total CO2 33.1 H ABG O2 Saturation 67.8 L ABG Base Excess Potassium Anion Gap BUN Creatinine Glucose Calculated Osmolality Total Bilirubin AST ALT Plasma Lactate 2.8 H Specimen Hemolysis 30 H 07/16/17 07/16/17 07/16/17 00:30 04:39 04:39 WBC 18.5 H Hgb 13.1 L D Hct 40.8 L D RDW Std Deviation 55.6 H Neutrophils % (Manual) 80.0 H Lymphocytes % (Manual) 7.0 L Monocytes % (Manual) 13.0 H Neutrophils # (Manual) 14.8 H Monocytes # (Manual) 2.4 H ABG pH 7.273 L ABG pCO2 68 H* ABG pO2 68.2 L ABG HCO3 31.3 H ABG Total CO2 33.4 H ABG O2 Saturation 89.8 L ABG Base Excess 2.5 H Potassium 5.5 H Anion Gap 16 H BUN 55.0 H* Creatinine 2.3 H Glucose 169 H Calculated Osmolality 292 H Total Bilirubin 3.00 H AST 1106 H D ALT 539 H D Plasma Lactate Specimen Hemolysis 62 H 07/16/17 06:59 WBC Hgb Hct RDW Std Deviation Neutrophils % (Manual) Lymphocytes % (Manual) Monocytes % (Manual) Neutrophils # (Manual) Monocytes # (Manual) ABG pH 7.301 L ABG pCO2 62 H* ABG pO2 60.7 L ABG HCO3 30.4 H ABG Total CO2 32.3 H ABG O2 Saturation 87.3 L ABG Base Excess 2.3 H Potassium Anion Gap BUN Creatinine Glucose Calculated Osmolality Total Bilirubin AST ALT Plasma Lactate Specimen Hemolysis - Diagnostic Findings Chest x-ray: image reviewed (cardiomegaly with some congestion noted) Assessment and Plan - Assessment and Plan Acute on Chronic Hypoxic Hypercapnic Respiratory Failure COPD - unknown severity, was to be on BT's at home but unsure if he has been using his meds was supposed to be on budesonde BID and brovana BID with albuterol neb 1-2 times a day Methamphetamine use Acute on Chronic systolic HF/non ischemic cardiomyopathy, current EF less then 10% MARGI Atrial fibrillation hypoglycemia Abdominal cellulitis Plan: Pt currently on bipap 27/10 35%, last ABG 7.3/60, awake and somewhat agitated, Vt's 400-700. Will try off bipap this am, has bipap at home but hadn' t been using, usually on 3L O2 at home. Will continue his BT's with budesonde BID, brovana BID with albuterol neb 1-2 times a day prn. CXR with cardiomegaly and slight congestion, required D5 overnoc to keep BS's around 100, primary stopping this am. Echo completed, awaiting official results and cardiology consulted. Cr 2.2 may require milrinone gtt for improved EF and kidney perfusion. WBC elevated, abdominal cellulitis noted on vanco, afebrile. Lactic acid 2.2 and procal 0.56, follow closely. - Time Spent With Patient Total time spent is greater than 50% in coordination of care (as documented) at patient's floor/unit and/or counseling patient: 25 - 35 minutes <Jorden Rebolledo - Last Filed: 07/17/17 12:54> [facility] Patient Stated Medical History Congestive Heart Failure Yes Hypertension Yes Sleep Apnea Yes Diabetes Mellitus Type 2 Yes Hx Renal Disease Yes Osteoarthritis Yes MRSA Yes Depression Yes: manic Clinic Medical History (Last Updated 06/09/17 @ 05:21 by Manny Stout MD) CHF (congestive heart failure) (Acute Medical) Coronary artery disease (Acute Medical) Sleep apnea (Acute Medical) Exam Vital signs: Temperature 96.9 F 07/17/17 04:00 Pulse Rate 65 07/17/17 12:00 Respiratory Rate 23 07/17/17 10:00 Blood Pressure 129/72 07/17/17 10:00 Pulse Oximetry 97 07/17/17 10:00 Results - Laboratory Findings CBC and BMP: 07/17/17 04:23 07/17/17 04:23 ABG ABG pH 7.301 (7.350-7.450) L 07/16/17 06:59 ABG pCO2 62 MMHG (34.0-45.0) H* 07/16/17 06:59 ABG pO2 60.7 MMHG (80.0-100.0) L 07/16/17 06:59 ABG O2 Saturation 87.3 % (95.0-98.0) L 07/16/17 06:59 Abnormal lab findings: Abnormal Labs 07/15/17 07/15/17 07/16/17 22:54 23:06 00:00 WBC RBC Hgb Hct RDW Std Deviation Neut % (Auto) Lymph % (Auto) Neut # (Auto) Neutrophils % (Manual) Lymphocytes % (Manual) Monocytes % (Manual) Neutrophils # (Manual) Monocytes # (Manual) ABG pH 7.232 L ABG pCO2 73 H* ABG pO2 43.2 L ABG HCO3 30.8 H ABG Total CO2 33.1 H ABG O2 Saturation 67.8 L ABG Base Excess Potassium Chloride Carbon Dioxide Anion Gap BUN Creatinine BUN/Creatinine Ratio Glucose Calculated Osmolality Calcium Total Bilirubin Conjugated Bilirubin AST ALT NT-Pro-B Natriuret Pep Total Protein Albumin Plasma Lactate 2.8 H Specimen Hemolysis 30 H 07/16/17 07/16/17 07/16/17 00:30 04:39 04:39 WBC 18.5 H RBC Hgb 13.1 L D Hct 40.8 L D RDW Std Deviation 55.6 H Neut % (Auto) Lymph % (Auto) Neut # (Auto) Neutrophils % (Manual) 80.0 H Lymphocytes % (Manual) 7.0 L Monocytes % (Manual) 13.0 H Neutrophils # (Manual) 14.8 H Monocytes # (Manual) 2.4 H ABG pH 7.273 L ABG pCO2 68 H* ABG pO2 68.2 L ABG HCO3 31.3 H ABG Total CO2 33.4 H ABG O2 Saturation 89.8 L ABG Base Excess 2.5 H Potassium 5.5 H Chloride Carbon Dioxide Anion Gap 16 H BUN 55.0 H* Creatinine 2.3 H BUN/Creatinine Ratio Glucose 169 H Calculated Osmolality 292 H Calcium Total Bilirubin 3.00 H Conjugated Bilirubin AST 1106 H D ALT 539 H D NT-Pro-B Natriuret Pep Total Protein Albumin Plasma Lactate Specimen Hemolysis 62 H 07/16/17 07/16/17 07/17/17 06:59 12:21 04:23 WBC 11.8 H RBC 4.33 L Hgb 11.8 L Hct 38.0 L RDW Std Deviation 55.9 H Neut % (Auto) 81.7 H Lymph % (Auto) 10.5 L Neut # (Auto) 9.6 H Neutrophils % (Manual) Lymphocytes % (Manual) Monocytes % (Manual) Neutrophils # (Manual) Monocytes # (Manual) ABG pH 7.301 L ABG pCO2 62 H* ABG pO2 60.7 L ABG HCO3 30.4 H ABG Total CO2 32.3 H ABG O2 Saturation 87.3 L ABG Base Excess 2.3 H Potassium Chloride 97 L Carbon Dioxide 31 H Anion Gap BUN 52.0 H* Creatinine 2.4 H BUN/Creatinine Ratio Glucose 129 H Calculated Osmolality 282 H Calcium 8.1 L Total Bilirubin 2.60 H Conjugated Bilirubin 0.70 H AST 1169 H ALT 548 H NT-Pro-B Natriuret Pep 8550 H Total Protein 6.2 L Albumin 3.4 L Plasma Lactate Specimen Hemolysis 07/17/17 04:23 WBC RBC Hgb Hct RDW Std Deviation Neut % (Auto) Lymph % (Auto) Neut # (Auto) Neutrophils % (Manual) Lymphocytes % (Manual) Monocytes % (Manual) Neutrophils # (Manual) Monocytes # (Manual) ABG pH ABG pCO2 ABG pO2 ABG HCO3 ABG Total CO2 ABG O2 Saturation ABG Base Excess Potassium Chloride Carbon Dioxide 33 H Anion Gap BUN 51.0 H* Creatinine 1.8 H D BUN/Creatinine Ratio 28 H Glucose Calculated Osmolality 287 H Calcium 7.9 L Total Bilirubin 1.50 H Conjugated Bilirubin AST 663 H ALT 458 H NT-Pro-B Natriuret Pep Total Protein 6.1 L Albumin 3.2 L Plasma Lactate Specimen Hemolysis Assessment and Plan (1) COPD, severe Problem details: on 3L NC chronically at home Status: Chronic Assessment and plan: recomm: neb budesonide/brovana BID, albuterol/ipratropium qid O2 to keep Spo2 > 90% Current Visit: No (2) Acute and chronic respiratory failure with hypoxia Problem details: Chronic secondary to COPD, acute likely a combination of COPD exacerbation and volume overload/systolic heart failure exacerbation Status: Acute Assessment and plan: Continue Trilogy vent to mask at night and prn Current Visit: No (3) Tobacco dependence syndrome Problem details: Ongoing, discussed cessation, unclear how much he is smoking routinely Status: Chronic Assessment and plan: COPD and respiratory failure are definitely exacerbated by smoking. strongly advise against that. Current Visit: No - Time Spent With Patient Total time spent is greater than 50% in coordination of care (as documented) at patient's floor/unit and/or counseling patient: less than 15 minutes
[2017-07-16] MEDS: PANTOPRAZOLE 40 MG INJECTION IVP SCH (10:42)
[2017-07-16] MEDS: SERTRALINE 50 MG TABLET PO SCH (10:43)
[2017-07-16] MEDS: GABAPENTIN 100 MG CAPSULE PO SCH ×2 (10:43→14:38)
[2017-07-16] MEDS: HEPARIN SUB-Q 5,000units/0.5ml INJECTION SQ SCH ×2 (10:43→17:58)
--- NOTE | 2017-07-16 11:31 | Pharmacy Consult-Antibiotics ---
Pharmacy Consult-Vancomycin - Laboratory Information WBC 18.5 T/MM3 (4.5-11.0) H 07/16/17 04:39 BUN 55.0 MG/DL (9-20) H* 07/16/17 04:39 Creatinine 2.3 mg/dL (0.8-1.5) H 07/16/17 04:39 Procalcitonin 0.56 NG/ML 07/15/17 23:06 - Consult Information Vancomycin Therapy: Day 1 Dx: Severe Sepsis Current Renal Function: S Cr = 2.3 mg/dl. Estimated Cr Cl ~ 53 mL/min The patient had a Vancomycin bolus of 2,000 mg iv this morning @ 0830. I will conitnue the Vancomycin @ 1,000 mg IV q12hrs (0430/1630). The pharmacy will continue to review the renal function and the Vancomycin levels and will adjust the Vancomycin accordingly. Thank you for the Vancomycin Dosing Protocol, Jeff Delgado, Pharmacist.
--- NOTE | 2017-07-16 11:39 | Cardiology Consult Note ---
<Caryl Salas - Last Filed: 07/17/17 09:21> History of Present Illness Consult date: 07/16/17 Requesting physician: Kaye Mccormick Consult reason: congestive heart failure Chief complaint: overdose History of present illness: Gray is a 52 year old male who is known to Dr. Merchant's practice with a history of systolic HF, PAF, nonischemic CM, morbid obesity, severe COPD and medical and lifestyle non-compliance who brought in by EMS after roommates notified them that he was found unresponsive. EMS was reportedly told he has been using meth. Blood sugar on site was 25. He was reportedly combative and dangerous/violent and received 2 mg IM Ativan. He was seen by Dr. Merchant in the hospital in June and at that time echo showed EF of 10-15% and he was in Atrial fibrillation with variable block. He had a successful DCCV to SR and started on Amiodarone for antiarrhythmic therapy. He was started on Xarelto for anticoagulation due to patient's questionable compliance with required lab monitoring. He was discharged with Life Vest on. Dr. Merchant is consulted for further management of CM and CHF and we appreciate the consult. He is seen in the CCU where he is sleeping with Bi-Pap in place. he does not open eyes to voice or exam. Review of Systems ROS unobtainable: due to mental status Review of systems: Patient does not answer question or open eyes PFSH Patient Stated Medical History Congestive Heart Failure Yes Hypertension Yes Sleep Apnea Yes Diabetes Mellitus Type 2 Yes Hx Renal Disease Yes Osteoarthritis Yes MRSA Yes Depression Yes: manic Clinic Medical History (Last Updated 06/09/17 @ 05:21 by Manny Stout MD) CHF (congestive heart failure) (Acute Medical) Coronary artery disease (Acute Medical) Sleep apnea (Acute Medical) Surgical History: Heart catheterization-2015- Patent coronaries. Right Shoulder arthroscopy. cholecystectomy Family History Updates: father of HTN and etoh - Social History Smoking status: Current every day smoker Substance use type: methamphetamine Substance last used: hours (ago) (several to 24) Alcohol intake frequency: does not drink Housing: house Household members: children Current occupational status: disabled Current residence: Apartment/Private Home Medications Home Medications Medication Instructions Recorded Confirmed Type Acetaminophen [Tylenol] 325 - 650 mg PO Q5H PRN tab 05/03/17 06/09/17 Rx ALPRAZolam [Xanax] 0.5 mg PO TID PRN #15 tab 06/20/17 07/16/17 Rx Albuterol Neb (0.083%) [Proventil 2.5 mg AEROSOL QID #120 vial 06/20/17 Rx Neb (0.083%)] Amiodarone [Pacerone] 200 mg PO DAILY #30 tab 06/20/17 07/16/17 Rx Budesonide Inhalation [Pulmicort 0.5 mg INH BID #60 vial 06/20/17 Rx Inhalation] Carvedilol [Coreg] 3.125 mg PO BIDWM #60 tab 06/20/17 07/16/17 Rx Furosemide [Lasix 40 mg Tab] 40 mg PO DAILY #30 tab 06/20/17 07/16/17 Rx Gabapentin [Neurontin] 300 mg PO TID #90 cap 06/20/17 Rx Hydrocodone/APAP 5/325 [[place] 1 tab PO Q4H PRN #20 tab 06/20/17 Rx 5/325] Ipratropium [place] 1 dose AEROSOL QID #120 bottle 06/20/17 Rx Lisinopril [Prinivil] 2.5 mg PO DAILY #30 tab 06/20/17 07/16/17 Rx Rivaroxaban [Xarelto] 20 mg PO WS #30 tab 06/20/17 07/16/17 Rx Sertraline [Zoloft] 50 mg PO DAILY #30 tab 06/20/17 07/16/17 Rx Simvastatin [Zocor] 20 mg PO HS #30 tab 06/20/17 07/16/17 Rx Allergies Allergy/AdvReac Type Severity Reaction Status Date / Time No Known Drug Allergies Allergy Unknown Verified 06/09/17 02:20 Exam Vital signs: Temperature 97.8 F 07/15/17 21:30 Pulse Rate 84 07/16/17 10:01 Respiratory Rate 24 07/16/17 10:01 Blood Pressure 138/92 H 07/16/17 10:01 Pulse Oximetry 97 07/16/17 10:01 - Constitutional morbidly obese, somnolent - Routine HEENT Exam Head: Present: normocephalic ENT: Present: mucous membranes moist - Routine Neck Exam Absent: JVD - Routine Chest/Breast/Axilla Exam Chest wall: Absent: tenderness - Routine Respiratory Exam Present: decreased breath sounds - Routine Cardiovascular Exam Present: RRR, tachycardia - Routine Abdominal Exam Present: soft - Routine Extremities Exam Present: edema - Routine Skin Exam Present: intact, dry, rash Results 07/17/17 04:23 07/17/17 04:23 Cardiac Enzymes 07/15/17 07/16/17 Range/Units 23:06 04:39 AST 1106 H D (17-59) U/L Troponin I 0.087 0.070 (0-0.12) ng/ml CBC 07/16/17 Range/Units 04:39 WBC 18.5 H (4.5-11.0) T/MM3 RBC 4.70 (4.50-5.90) M/MM3 Hgb 13.1 L D (13.5-17.5) GM/DL Hct 40.8 L D (41-53) % Plt Count 185 (130-400) T/MM3 Comprehensive Metabolic Panel 07/16/17 Range/Units 04:39 Sodium 142 (134-144) MEQ/L Potassium 5.5 H (3.6-5) MEQ/L Chloride 100 (98-107) MEQ/L Carbon Dioxide 26 (22-30) MEQ/L BUN 55.0 H* (9-20) MG/DL Creatinine 2.3 H (0.8-1.5) mg/dL Glucose 169 H (75-110) MG/DL Calcium 8.8 (8.4-10.2) MG/DL AST 1106 H D (17-59) U/L ALT 539 H D (1-50) U/L Alkaline Phosphatase 113 (38-126) U/L Total Protein 6.7 (6.3-8.2) g/dL Albumin 3.5 (3.5-5.0) g/dL Intake and Output 07/15/17 07/16/17 07/16/17 22:59 06:59 14:59 Intake Total 625.0 / 625.0 333.333 / 333.333 853.333 / 853.333 Output Total 165 / 165 140 / 140 Balance 625.0 / 625.0 168.333 / 168.333 713.333 / 713.333 Intake: IV 625.0 / 625.0 333.333 / 333.333 853.333 / 853.333 Ceftriaxone 1 g In Ns 100 ml @ 100 / 100 200 mls/hr IV O ONE Rx#: [id number] D5-1/2Ns 1,000 ml @ 50 mls/hr 130 / 130 353.333 / 353.333 IV .Q20H R[facility] Rx#:[id number] D5ns 1,000 ml @ 250 mls/hr IV . 625.0 / 625.0 103.333 / 103.333 Q4H R[facility] Rx#:[id number] Vancomycin 2,000 mg In NS 500ml 500 / 500 500 ml @ 250 mls/hr IV O ONE Rx#:[id number] Output: Urine Amount (Catheter) 165 / 165 140 / 140 Other: Urine Appearance Clear Urine Color Tea Colored Weight 294 lb 8.601 oz 290 lb 12.635 oz Patient Weight 07/17/17 06:59 Weight 290 lb 12.635 oz - Imaging and Cardiology Imaging & Cardiology Narrative: Date of Exam: 07/16/17 Ordering Provider: Kaye Mccormick MD Type of Exam(s): XR chest 1V Reason for Exam(s): CHF, hypoxia Indication: CHF, hypoxia PROCEDURE: XR chest 1V: Encounter: Initial Comparison: June 18, 2017 Findings: Aeration of the lungs has improved with less pulmonary vascular congestion. No new or worsening airspace consolidation. Overlying monitoring leads. No pneumothorax or pleural effusion. Cardiac silhouette remains enlarged. Mediastinal contours are stable. Impression: Improved pulmonary edema with only a mild amount of vascular congestion remaining. 07/16/17 16:53 EKG interpretations - EKG EKG results cardiology: sinus rhythm - Dysrhythmias Ventricular dysrhythmias: ventricular premature complexes - Blocks, axis, hypertrophy, ST abn Repolarization changes or abnormalities: nonspecific abnormality, ST segment, and/or T wave Assessment and Plan - Assessment and Plan (1) Methamphetamine intoxication Current visit: Yes Status: Acute Found unresponsive by friends who reported Meth use to EMS - UDS positive for amphetamines and methamphetamines - Patient denied use (2) Hypoglycemia Current visit: Yes Status: Acute EMS documented BG of 25 - No insulin found with his other medications (3) Congestive heart failure Problem details: Systolic Current visit: No Status: Acute Acute on chronic - BNP 8550 - Diuresis with Lasix 40mg daily (4) Acute kidney injury Current visit: Yes Status: Acute BUN/ SCr 43/ 2.4 on admission - Hold Lisinopril (5) Methamphetamine substance use disorder, mild, in sustained remission, in controlled environment, abuse Current visit: Yes Status: Chronic (6) Dilated cardiomyopathy Problem details: EF 10-15% with 3/4 diastolic dysfunction on 06/11/17 EF 30% on TTE done 10/2015; global hypokinesis and dilated LV; EF 55% 09/2016 Current visit: No Status: Chronic Discharged last hospitalization with LifeVest on - Patient not wearing Life Vest - Continue low dose Coreg as tolerated when able to swallow PO (7) Hypertension Problem details: Off all medications for > 6 months, uncontrolled Current visit: No Status: Chronic (8) COPD, severe Problem details: on 3L NC chronically at home Current visit: No Status: Chronic (9) Tobacco dependence syndrome Problem details: Ongoing, discussed cessation, unclear how much he is smoking routinely Current visit: No Status: Chronic - Assessment and Plan Meth intoxication: Found unresponsive by friends who reported Meth use to EMS - UDS positive for amphetamines and methamphetamines - Patient denied use Hypoglycemia: EMS documented BG of 25 - No insulin found with his other medications Systolic CHF: Acute on chronic - BNP 8550 - Diuresis with Lasix 40mg daily MARGI: BUN/ SCr 43/ 2.4 on admission - Hold Lisinopril Dilated CM: Discharged last hospitalization with LifeVest on - Patient not wearing Life Vest - Continue low dose Coreg as tolerated when able to swallow PO HTN: Hold Lisinopril until renal function improves to baseline Meth abuse COPD Tobacco dependence Thank you for letting us participate in the care of this patient, we will follow along with you. Hospital Course Summary Disclaimer: The visit summary below is not to be considered part of the above Progress Note. <Lee Merchant - Last Filed: 07/20/17 14:13> [facility] Patient Stated Medical History Congestive Heart Failure Yes Hypertension Yes Sleep Apnea Yes Diabetes Mellitus Type 2 Yes Hx Renal Disease Yes Osteoarthritis Yes MRSA Yes Depression Yes: manic Clinic Medical History (Last Updated 06/09/17 @ 05:21 by Manny Stout MD) CHF (congestive heart failure) (Acute Medical) Coronary artery disease (Acute Medical) Sleep apnea (Acute Medical) Exam Vital signs: Temperature 96.1 F L 07/20/17 12:00 Pulse Rate 75 07/20/17 12:00 Respiratory Rate 16 07/20/17 12:00 Blood Pressure 132/70 07/20/17 12:00 Pulse Oximetry 88 L 07/20/17 13:29 Results 07/20/17 04:42 07/20/17 04:42 Cardiac Enzymes 07/20/17 Range/Units 04:42 AST 153 H (17-59) U/L CBC 07/20/17 Range/Units 04:42 WBC 12.0 H D (4.5-11.0) T/MM3 RBC 4.69 (4.50-5.90) M/MM3 Hgb 12.8 L (13.5-17.5) GM/DL Hct 43.4 (41-53) % Plt Count 118 L (130-400) T/MM3 Neut # (Auto) 9.6 H (1.8-7.7) T/MM3 Lymph # (Auto) 1.1 (1-4.8) T/MM3 [place] # (Auto) 1.1 H (0-0.8) T/MM3 Eos # (Auto) 0.2 (0-0.5) T/MM3 Baso # (Auto) 0.0 (0-0.2) T/MM3 Comprehensive Metabolic Panel 07/20/17 Range/Units 04:42 Sodium 145 H (134-144) MEQ/L Potassium 4.2 (3.6-5) MEQ/L Chloride 98 (98-107) MEQ/L Carbon Dioxide 39 H (22-30) MEQ/L BUN 17.0 (9-20) MG/DL Creatinine 0.8 (0.8-1.5) mg/dL Glucose 122 H (75-110) MG/DL Calcium 8.6 (8.4-10.2) MG/DL AST 153 H (17-59) U/L ALT 230 H (1-50) U/L Alkaline Phosphatase 113 (38-126) U/L Total Protein 7.0 (6.3-8.2) g/dL Albumin 3.6 (3.5-5.0) g/dL Intake and Output 07/19/17 07/20/17 07/20/17 22:59 06:59 14:59 Intake Total 200 / 200 100 / 100 310 / 310 Output Total 600 / 600 275 / 275 1250 / 1250 Balance -400 / -400 -175 / -175 -940 / -940 Intake: IV 100 / 100 Ceftriaxone 1 g In Ns 100 ml @ 100 / 100 200 mls/hr IV Q24H [facility] Rx#: [id number] Oral 200 / 200 100 / 100 210 / 210 Output: Urine 275 / 275 1250 / 1250 Urine Amount (Catheter) 600 / 600 Other: Urine Appearance Clear Urine Color Dark Yellow Yellow Stool Color Brown Size of Bowel Movement Small Weight 132.5 kg Patient Weight 07/21/17 06:59 Weight 132.5 kg Assessment and Plan - Attestation Attestation Narrative: 07/20/17 14:13 Recommendation After examining the patient I agree with the above assessment. I am involved in the formulation of the patient's plan of care. - Assessment and Plan (1) Dilated cardiomyopathy Problem details: EF 10-15% with 3/4 diastolic dysfunction on 06/11/17 EF 30% on TTE done 10/2015; global hypokinesis and dilated LV; EF 55% 09/2016 Current visit: No Status: Chronic (2) Hypertension Problem details: Off all medications for > 6 months, uncontrolled Current visit: No Status: Chronic (3) COPD, severe Problem details: on 3L NC chronically at home Current visit: No Status: Chronic (4) Tobacco dependence syndrome Problem details: Ongoing, discussed cessation, unclear how much he is smoking routinely Current visit: No Status: Chronic (5) Congestive heart failure Problem details: Systolic Current visit: No Status: Acute (6) Methamphetamine intoxication Current visit: Yes Status: Acute (7) Methamphetamine substance use disorder, mild, in sustained remission, in controlled environment, abuse Current visit: Yes Status: Chronic (8) Hypoglycemia Current visit: Yes Status: Acute (9) Acute kidney injury Current visit: Yes Status: Acute (10) PAF (paroxysmal atrial fibrillation) Current visit: Yes Status: Chronic Hospital Course Summary Disclaimer: The visit summary below is not to be considered part of the above Progress Note.
[2017-07-16] MEDS ORDERED: AMIODARONE 200 MG TABLET PO SCH (12:00)
[2017-07-16] MEDS ORDERED: LISINOPRIL 2.5 MG TABLET PO SCH (12:00)
[2017-07-16] MEDS: CEFTRIAXONE 1 G in NS 100 ML IV SCH (12:22)
--- NOTE | 2017-07-16 14:32 | XRay Report ---
Indication: CHF, hypoxia PROCEDURE: XR chest 1V: Encounter: Initial Comparison: June 18, 2017 Findings: Aeration of the lungs has improved with less pulmonary vascular congestion. No new or worsening airspace consolidation. Overlying monitoring leads. No pneumothorax or pleural effusion. Cardiac silhouette remains enlarged. Mediastinal contours are stable. Impression: Improved pulmonary edema with only a mild amount of vascular congestion remaining. .
[2017-07-16] MEDS: FUROSEMIDE 40 MG TABLET PO SCH (14:36)
[2017-07-16] MEDS ORDERED: INSULIN ASPART 100unit/ml INJECTION SQ PRN (15:03)
[2017-07-16] MEDS ORDERED: CARVEDILOL 3.125 MG TABLET PO SCH (17:30)
[2017-07-16] MEDS: CARVEDILOL 3.125 MG TABLET PO SCH (17:58)
[2017-07-16] MEDS: BUDESONIDE INH.SOLN 0.5mg/2ml NEB AEROSOL SCH ×2 (20:32→20:33)
[2017-07-16] MEDS: ALBUTEROL/IPRATROPIUM 2.5mg-0.5mg/3ml NEB AEROSOL PRN (20:32)
[2017-07-16] MEDS: ARFORMOTEROL NEB 15mcg/2ml AEROSOL SCH (20:33)
[2017-07-16] MEDS ORDERED: SIMVASTATIN 20 MG TABLET PO SCH (21:00)
[2017-07-16] MEDS: GABAPENTIN 300 MG CAPSULE PO SCH (21:14)
[2017-07-17] MEDS ORDERED: NS FLUSH BAG 500ml IV PRN (03:45)
[2017-07-17] MEDS: SALINE FLUSH 10ml SYRINGE IVF PRN (04:24)
[2017-07-17] MEDS: BUDESONIDE INH.SOLN 0.5mg/2ml NEB AEROSOL SCH ×2 (08:35→20:55)
[2017-07-17] MEDS: ALBUTEROL/IPRATROPIUM 2.5mg-0.5mg/3ml NEB AEROSOL PRN ×2 (08:35→15:22)
[2017-07-17] MEDS: PANTOPRAZOLE 40 MG INJECTION IVP SCH (09:05)
[2017-07-17] MEDS: HEPARIN SUB-Q 5,000units/0.5ml INJECTION SQ SCH ×3 (09:06→17:55)
[2017-07-17] MEDS: GABAPENTIN 100 MG CAPSULE PO SCH ×2 (09:06→13:29)
[2017-07-17] MEDS: CARVEDILOL 3.125 MG TABLET PO SCH (09:07)
[2017-07-17] MEDS: FUROSEMIDE 40 MG TABLET PO SCH (09:07)
[2017-07-17] MEDS: SERTRALINE 50 MG TABLET PO SCH (09:07)
[2017-07-17] MEDS: CEFTRIAXONE 1 G in NS 100 ML IV SCH (10:33)
--- NOTE | 2017-07-17 10:51 | Progress Note ---
- Date 07/17/17 Subjective: F/U: Toxic/metabolic encephalopathy, hypoglycemia, Acute meth intoxication Still very somnolent. Will awaken to take juice, but sleeping mostly. Maintaining saturations of 3L (baseline flow). 1620 - Rechecked on patient. Still very sleepy, but will awaken to verbal stimuli. Answers questions appropriately. Feels tired and weak in general. Able to advance diet to regular for lunch-ate well, then went back to sleep. Wearing his BiPAP this afternoon when sleeping. Breathing fair. No nausea. Objective Vital signs: Temperature 96.9 F 07/17/17 04:00 Pulse Rate 74 07/17/17 08:00 Respiratory Rate 16 07/17/17 08:35 Blood Pressure 133/79 07/17/17 06:00 Pulse Oximetry 99 07/17/17 08:35 Height/Weight/BMI: Height 1.83 m Weight 131.3 kg Body Mass Index 39.9 - Constitutional Present: well nourished, well developed, morbidly obese, somnolent - Routine HEENT Exam Head: Present: normocephalic, atraumatic ENT: Present: mucous membranes moist - Routine Respiratory Exam Present: decreased breath sounds. Absent: rales, respiratory distress, rhonchi , wheezes - Routine Cardiovascular Exam Present: RRR, no murmur - Routine Abdominal Exam Present: soft, non distended, non tender. Absent: normoactive bowel sounds ( decreased) - Routine Exam Comments: Abdalla present - Routine Extremities Exam Present: edema (+3 BLE). Absent: cyanosis, clubbing - Routine Musculoskeletal Exam Musculoskeletal: Present: no clubbing or cyanosis - Routine Skin Exam Present: warm - Routine Neurological Exam Somnolent - Routine Psychiatric Exam Comments: Somnolent Results - Labs CBC & Chem 7: 07/17/17 04:23 07/17/17 04:23 Microbiology Results: Microbiology 07/15/17 21:02 Peripheral/Iv Start Blood Culture - Preliminary No Growth After 1 Day 07/16/17 12:21 Peripheral/Iv Start Blood Culture - Preliminary Culture Initiated - Results Pending - ABG Interpretation ABG results: 07/15/17 07/16/17 07/16/17 22:54 00:30 06:59 ABG pH 7.232 L 7.273 L 7.301 L ABG pCO2 73 H* 68 H* 62 H* ABG pO2 43.2 L 68.2 L 60.7 L ABG HCO3 30.8 H 31.3 H 30.4 H ABG Total CO2 33.1 H 33.4 H 32.3 H ABG O2 Saturation 67.8 L 89.8 L 87.3 L ABG Base Excess 0.8 2.5 H 2.3 H Assessment and Plan (1) Metabolic encephalopathy Current visit: Yes Status: Acute (2) Methamphetamine intoxication Current visit: Yes Status: Acute (3) Hypoglycemia Current visit: Yes Status: Acute (4) Congestive heart failure Problem details: Systolic Current visit: No Status: Acute (5) Dilated cardiomyopathy Problem details: EF 10-15% with 3/4 diastolic dysfunction on 06/11/17 EF 30% on TTE done 10/2015; global hypokinesis and dilated LV; EF 55% 09/2016 Current visit: No Status: Chronic (6) Hypertension Problem details: Off all medications for > 6 months, uncontrolled Current visit: No Status: Chronic (7) COPD, severe Problem details: on 3L NC chronically at home Current visit: No Status: Chronic (8) Tobacco dependence syndrome Problem details: Ongoing, discussed cessation, unclear how much he is smoking routinely Current visit: No Status: Chronic (9) Anxiety Problem details: Severe and chronic, untreated, exacerbated by dyspnea Current visit: No Status: Acute (10) Methamphetamine substance use disorder, mild, in sustained remission, in controlled environment, abuse Current visit: Yes Status: Chronic (11) Hypoglycemia Current visit: Yes Status: Acute (12) Acute kidney injury Current visit: Yes Status: Acute Assessment and Plan: Assessment Toxic/Metabolic encephalopathy (POA) - secondary to hypoglycemia, meth, and CO2 narcosis Acute hypoglycemia (POA) - resolved Acute methamphetamine intoxication with agitation and encephalopathy (POA) Acute Kidney Injury (POA) Leukocytosis (POA) Elevated Lactate (POA) - likely secondary to cardiomyopathy Chronic systolic CHF from [facility]IE Chronic hypoxic/hypercapnic respiratory failure - Trilogy vent at home, 3L during day COPD - on chronic oxygen at home 3 L H/O aflutter Hyperbilirubinemia and elevated liver enzymes - likely passive congestion of liver with medication effect Possible acute/ recurrent cellulitis - history of MRSA HLP Stage III CKD Tinea of skin folds Depression/Anxiety Tobacco dependency Morbid obesity Plan Blood sugars improved, encephalopathy improving but patient still very somnolent. Minimize benzodiazepines and narcotics. Last lorazepam yesterday am. Respiratory status improving - maintaining saturation on baseline 3L. Wearing BiPAP as directed. Renal status improve with creatinine decreasing to 1.8. Oral intake decreased. Not on IVF secondary to cardiomyopathy. On home maintenance furosemide. Lisinopril remains on hold. Liver enzymes gradually decreasing. Holding amiodarone and simvastatin. Will continue with vancomycin and ceftriaxone for antimicrobial coverage, WBC decreased to 11.8. Increase activities as somnolence improves. Continue with CCU care for close monitoring due to resolving encephalopathy. Recheck CMP and Mg in am due to MARGI and elevated liver enzymes. Will recheck CBC in am due to leukocytosis. Check CXR in am to monitor pulm edema. Case discussed with CM and CCU nursing. Time spent with patient care 25 minutes. DVT Prophylaxis: SCD's, SQ Heparin Resuscitation Status: Full Code - Time spent with patient Time with patient PN: 25 minutes - Physician Narrative Physician: David Medrano MD Narrative: Date: 07/17/17 Time: 1048 Hospital Course Summary Disclaimer: The visit summary below is not to be considered part of the above Progress Note. Hospital Course: 07/15/17 Admission - CCU Check ABG - concerned about R/O AMI w serial enzymes Ativan PRN and restraints for patient and staff safety IV Rocephin x 1 for abd wall cellulitis, start vanco in AM when better IV access avaialbe, asked nursing to cassandra cellulitis w line Get off iv fluids fouzia with recent CHF issues Nebs PRN, no wheezing noted and minimal O2 requirements at this time Follow labs, check liver panel in AM and abd sono Critically ill: Guarded prognosis Care to return to Dr Rueda at time of [place] [facility] [place]/16/17 Acute hypoglycemia - Could be toxic effects of meth, does not have any insulin at home. Has not been eating well for at least 2 days due to nausea, vomiting and diarrhea Currently on D5 half normal saline at 50 mls per hour-dc and follow blood sugars Accu checks Q6 hours If he can be off BiPAP then we may try to feed him and titrate off the D5. Acute methamphetamine intoxication with agitation and encephalopathy -appears to be improving, still a bit agitated. Ativan PRN. Remove four- point restraints when he can be trusted not to take his BiPAP off Chronic systolic CHF from NICM - EKG looks unchanged, chest x-ray stable at this point Dr. Merchant consulted Resume Coreg. Holding MANI I due to MARGI VALARIE - requiring BiPAP to maintain saturations Will try to wean off to just oxygen during the day, he is chronically on 3L H/O aflutter Hold amiodarone for now due to elevated LFTs - In SR at present Hold Xarelto for now COPD - on chronic oxygen at home 3 L Nebulizers, titrate oxygen Dr. Rebolledo consulted Morbid obesity Acute Renal failure -will repeat labs this afternoon, poor urine output Hyperbilirubinemia and elevated liver enzymes - will repeat labs in follow, Bili trending down, AST/ALT trending up -Hepatitis panel pending -Hold amiodarone for now Possible acute/ recurrent cellulitis - history of MRSA Vancomycin started, pharm consult for dosing - Rocephin IV HLP - Holding statin due to elevated LFTs Possible acute severe sepsis (lactate > 2, cellulitis) Present on admit - Repeat lactate normal Will consult wound and skin Nystatin for groin folds 07/17/17 Blood sugars improved, encephalopathy improving but patient still very somnolent. Minimize benzodiazepines and narcotics. Last lorazepam yesterday am. Respiratory status improving - maintaining saturation on baseline 3L. Wearing BiPAP as directed. Renal status improve with creatinine decreasing to 1.8. Oral intake decreased. Not on IVF secondary to cardiomyopathy. On home maintenance furosemide. Lisinopril remains on hold. Liver enzymes gradually decreasing. Holding amiodarone and simvastatin. Will continue with vancomycin and ceftriaxone for antimicrobial coverage, WBC decreased to 11.8. Increase activities as somnolence improves. Continue with CCU care for close monitoring due to resolving encephalopathy. 1620 Still very sleepy, but able to awaken for conversation. Tolerated regular food for lunch. Nursing reporting no agitation or aggressive behaviors. Will transfer to medical floor on tele to continue care. PT/OT to work with patient tomorrow.
--- NOTE | 2017-07-17 13:30 | Cardiology Progress Note ---
<Caryl Salas M - Last Filed: 07/18/17 10:49> Subjective Principal diagnosis: CM, CHF Interval history: Gray is seen in follow up for CM and CHF. Gray is in his bed in CCU, friend is at the bedside. He opens his eyes to exam and denies complaints Exam Vital signs: Temperature 96.9 F 07/17/17 04:00 Pulse Rate 65 07/17/17 12:00 Respiratory Rate 23 07/17/17 10:00 Blood Pressure 129/72 07/17/17 10:00 Pulse Oximetry 97 07/17/17 10:00 Inpatient Medications: Generic Name Dose Route Start Last Admin Trade Name Freq PRN Reason Stop Dose Admin Albuterol/Ipratropium 3 ml 07/16/17 10:02 07/17/17 08:35 Duoneb AEROSOL 3 ml RTQID PRN Administration Arformoterol Tartrate 15 mcg 07/16/17 12:00 07/16/17 20:33 Brovana Neb AEROSOL Not Given RTBID RICHARD Budesonide 0.5 mg 07/16/17 12:00 07/17/17 08:35 Pulmicort Inhalation AEROSOL 0.5 mg RTBID RICHARD Administration Carvedilol 3.125 mg 07/16/17 17:30 07/17/17 09:07 Coreg PO 3.125 mg BIDWM RICHARD Administration Furosemide 40 mg 07/16/17 12:00 07/17/17 09:07 Lasix 40 Mg Tab PO 40 mg DAILY RICHARD Administration Gabapentin 300 mg 07/16/17 21:00 07/16/17 21:14 Neurontin PO 300 mg HS RICHARD Administration Gabapentin 200 mg 07/16/17 14:00 07/17/17 09:06 Neurontin PO 200 mg 0800,1400 RICHARD Administration Heparin Sodium (Porcine) 5,000 units 07/16/17 09:45 07/17/17 09:06 Heparin Sq SQ 5,000 units Q8HR RICHARD Administration Ceftriaxone Sodium 1 g/ Sodium 100 mls @ 200 mls/hr 07/16/17 11:00 07/17/17 10:33 Chloride IV 200 mls/hr Q24H RICHARD Administration Vancomycin HCl 1,000 mg/ 250 mls @ 250 mls/hr 07/16/17 16:30 07/17/17 05:15 Sodium Chloride IV Infused Q12H RICHARD Infusion Insulin Aspart 1 - 5 unit 07/16/17 15:03 Novolog SQ SS PRN Hyperglycemia Protocol Lorazepam 0.5 mg 07/15/17 22:19 07/16/17 04:21 Ativan Inj IVP 0.5 mg Q4H PRN Administration Agitation/Restlessness Metoclopramide HCl 5 mg 07/15/17 21:51 Reglan IVP Q6H PRN Morphine Sulfate 1 - 2 mg 07/15/17 21:51 Morphine Sulf 2 Mg Inj IVP Q2H PRN Pain Ondansetron HCl 4 mg 07/15/17 21:51 Zofran IVP Q6H PRN Nausea &/or vomiting Pantoprazole Sodium 40 mg 07/16/17 09:00 07/17/17 09:05 Protonix Iv IVP 40 mg DAILY RICHARD Administration Sertraline HCl 50 mg 07/16/17 10:00 07/17/17 09:07 Zoloft PO 50 mg DAILY RICHARD Administration Sodium Chloride 10 - 80 ml 07/15/17 18:38 07/17/17 04:24 Iv Flush IVF 40 ml PRN PRN Administration Flushing Sodium Chloride 500 ml 07/17/17 03:45 07/17/17 04:14 Normal Saline IV 500 ml PRN PRN Administration Discontinued Medications Generic Name Dose Route Start Last Admin Trade Name Freq PRN Reason Stop Dose Admin Amiodarone HCl 200 mg 07/16/17 12:00 07/16/17 14:36 Pacerone PO 200 mg DAILY RICHARD Administration Dextrose/Sodium Chloride 1,000 mls @ 250 mls/hr 07/15/17 18:30 07/16/17 04:50 Dextrose 5%-Normal Saline IV Not Given .Q4H RICHARD Dextrose/Sodium Chloride 1,000 mls @ 50 mls/hr 07/15/17 22:00 07/16/17 08:31 D5-1/2ns IV Infused .Q20H RICHARD Infusion Ceftriaxone Sodium 1 g/ Sodium 100 mls @ 200 mls/hr 07/15/17 22:19 07/16/17 01:04 Chloride IV 07/15/17 22:48 Infused O ONE Infusion Vancomycin HCl 2,000 mg/ 500 mls @ 250 mls/hr 07/16/17 07:10 07/16/17 10:38 Sodium Chloride IV 07/16/17 07:11 Infused O ONE Infusion Vancomycin HCl 1,000 mg/ 250 mls @ 250 mls/hr 07/16/17 08:56 Sodium Chloride IV 07/16/17 08:57 O ONE Lisinopril 2.5 mg 07/16/17 12:00 07/16/17 14:35 Prinivil PO 2.5 mg DAILY RICHARD Administration Lorazepam 2 mg 07/15/17 18:28 07/15/17 22:15 Ativan Inj IVP 07/15/17 18:29 2 mg O ONE Administration Pharmacy Consult each 07/16/17 00:49 Pharmacy Consult - Fall Risk 07/16/17 00:50 ONE TIME ONE Simvastatin 20 mg 07/16/17 21:00 Zocor PO HS RICHARD Sodium Chloride 10 - 80 ml 07/15/17 18:28 07/16/17 10:43 Iv Flush IVF 40 ml PRN PRN Administration Flushing Vancomycin HCl 1 each 07/16/17 06:22 07/16/17 08:31 Pharmacy Consult - Vancomycin MC 07/16/17 06:23 1 each O ONE Administration - Constitutional no acute distress, obese, cooperative - Routine HEENT Exam Head: Present: normocephalic ENT: Present: mucous membranes moist - Routine Neck Exam Absent: JVD, carotid bruit - Routine Chest/Breast/Axilla Exam Chest wall: Absent: tenderness - Routine Respiratory Exam Present: decreased breath sounds. Absent: dyspnea - Routine Cardiovascular Exam Present: RRR, no murmur - Routine Abdominal Exam Present: soft - Routine Extremities Exam Present: edema - Routine Skin Exam Present: intact, dry, warm - Routine Neurological Exam Present: alert - Routine Psychiatric Exam Present: normal affect - Urinary Catheter Management Urethral Cath placed during this visit: yes Insertion date: 07/15/17 Insertion time: 22:45 Results 07/18/17 04:16 07/18/17 04:16 Cardiac Enzymes 07/17/17 Range/Units 04:23 AST 663 H (17-59) U/L CBC 07/17/17 Range/Units 04:23 WBC 11.8 H (4.5-11.0) T/MM3 RBC 4.33 L (4.50-5.90) M/MM3 Hgb 11.8 L (13.5-17.5) GM/DL Hct 38.0 L (41-53) % Plt Count 176 (130-400) T/MM3 Neut # (Auto) 9.6 H (1.8-7.7) T/MM3 Lymph # (Auto) 1.2 (1-4.8) T/MM3 [place] # (Auto) 0.8 (0-0.8) T/MM3 Eos # (Auto) 0.0 (0-0.5) T/MM3 Baso # (Auto) 0.0 (0-0.2) T/MM3 Comprehensive Metabolic Panel 07/17/17 Range/Units 04:23 Sodium 142 (134-144) MEQ/L Potassium 3.8 (3.6-5) MEQ/L Chloride 99 (98-107) MEQ/L Carbon Dioxide 33 H (22-30) MEQ/L BUN 51.0 H* (9-20) MG/DL Creatinine 1.8 H D (0.8-1.5) mg/dL Glucose 95 (75-110) MG/DL Calcium 7.9 L (8.4-10.2) MG/DL Unconjugated Bilirubin 0.40 (0.00-1.1) mg/dL AST 663 H (17-59) U/L ALT 458 H (1-50) U/L Alkaline Phosphatase 111 (38-126) U/L Total Protein 6.1 L (6.3-8.2) g/dL Albumin 3.2 L (3.5-5.0) g/dL Intake and Output 07/16/17 07/17/17 07/17/17 22:59 06:59 14:59 Intake Total 730 / 730 400 / 400 Output Total 390 / 390 960 / 960 865 / 865 Balance 340 / 340 -560 / -560 -865 / -865 Intake: IV 250 / 250 250 / 250 Vancomycin 1,000 mg In NS 250ml 250 / 250 250 / 250 250 ml @ 250 mls/hr IV Q12H [facility] Rx#:[id number] Oral 480 / 480 150 / 150 Output: Urine Amount (Catheter) 390 / 390 960 / 960 865 / 865 Other: Urine Appearance Clear Clear Clear Urine Color Tea Colored Light Lolis Light Lolis Weight 289 lb 7.471 oz Patient Weight 07/18/17 06:59 Weight 289 lb 7.471 oz Assessment and Plan - Assessment and Plan (1) Methamphetamine intoxication Current visit: Yes Status: Acute (2) Hypoglycemia Current visit: Yes Status: Acute (3) Congestive heart failure Problem details: Systolic Current visit: No Status: Acute (4) Acute kidney injury Current visit: Yes Status: Acute (5) Methamphetamine substance use disorder, mild, in sustained remission, in controlled environment, abuse Current visit: Yes Status: Chronic (6) Dilated cardiomyopathy Problem details: EF 10-15% with 3/4 diastolic dysfunction on 06/11/17 EF 30% on TTE done 10/2015; global hypokinesis and dilated LV; EF 55% 09/2016 Current visit: No Status: Chronic (7) Hypertension Problem details: Off all medications for > 6 months, uncontrolled Current visit: No Status: Chronic (8) COPD, severe Problem details: on 3L NC chronically at home Current visit: No Status: Chronic (9) Tobacco dependence syndrome Problem details: Ongoing, discussed cessation, unclear how much he is smoking routinely Current visit: No Status: Chronic - Assessment and Plan 07/16/17 Meth intoxication: Found unresponsive by friends who reported Meth use to EMS - UDS positive for amphetamines and methamphetamines - Patient denied use Hypoglycemia: EMS documented BG of 25 - No insulin found with his other medications Systolic CHF: Acute on chronic - BNP 8550 - Diuresis with Lasix 40mg daily MARGI: BUN/ SCr 43/ 2.4 on admission - Hold Lisinopril Dilated CM: Discharged last hospitalization with LifeVest on - Patient not wearing Life Vest - Continue low dose Coreg as tolerated when able to swallow PO HTN: Hold Lisinopril until renal function improves to baseline Meth abuse COPD Tobacco dependence Thank you for letting us participate in the care of this patient, we will follow along with you. 07/17/17 Alert today, denies complaints - Increase Coreg to 6.25mg BID MARGI: improving, BUN 51/ SCr 1.8 today Hospital Course Summary Disclaimer: The visit summary below is not to be considered part of the above Progress Note. Hospital Course: 07/15/17 Admission - CCU Check ABG - concerned about R/O AMI w serial enzymes Ativan PRN and restraints for patient and staff safety IV Rocephin x 1 for abd wall cellulitis, start vanco in AM when better IV access avaialajay, asked nursing to cassandra cellulitis w line Get off iv fluids fouzia with recent CHF issues Nebs PRN, no wheezing noted and minimal O2 requirements at this time Follow labs, check liver panel in AM and scooby walter Critically ill: Guarded prognosis Care to return to Dr Rueda at time of discharger from [facility]. 07/16/17 Acute hypoglycemia - Could be toxic effects of meth, does not have any insulin at home. Has not been eating well for at least 2 days due to nausea, vomiting and diarrhea Currently on D5 half normal saline at 50 mls per hour-dc and follow blood sugars Accu checks Q6 hours If he can be off BiPAP then we may try to feed him and titrate off the D5. Acute methamphetamine intoxication with agitation and encephalopathy -appears to be improving, still a bit agitated. Ativan PRN. Remove four- point restraints when he can be trusted not to take his BiPAP off Chronic systolic CHF from NICM - EKG looks unchanged, chest x-ray stable at this point Dr. Merchant consulted Resume Coreg. Holding MANI I due to MARGI VALARIE - requiring BiPAP to maintain saturations Will try to wean off to just oxygen during the day, he is chronically on 3L H/O aflutter Hold amiodarone for now due to elevated LFTs - In SR at present Hold Xarelto for now COPD - on chronic oxygen at home 3 L Nebulizers, titrate oxygen Dr. Rebolledo consulted Morbid obesity Acute Renal failure -will repeat labs this afternoon, poor urine output Hyperbilirubinemia and elevated liver enzymes - will repeat labs in follow, Bili trending down, AST/ALT trending up -Hepatitis panel pending -Hold amiodarone for now Possible acute/ recurrent cellulitis - history of MRSA Vancomycin started, pharm consult for dosing - Rocephin IV HLP - Holding statin due to elevated LFTs Possible acute severe sepsis (lactate > 2, cellulitis) Present on admit - Repeat lactate normal Will consult wound and skin Nystatin for groin folds 07/17/17 Blood sugars improved, encephalopathy improving but patient still very somnolent. Minimize benzodiazepines and narcotics. Last lorazepam yesterday am. Respiratory status improving - maintaining saturation on baseline 3L. Wearing BiPAP as directed. Renal status improve with creatinine decreasing to 1.8. Oral intake decreased. Not on IVF secondary to cardiomyopathy. On home maintenance furosemide. Lisinopril remains on hold. Liver enzymes gradually decreasing. Holding amiodarone and simvastatin. Will continue with vancomycin and ceftriaxone for antimicrobial coverage, WBC decreased to 11.8. Increase activities as somnolence improves. Continue with CCU care for close monitoring due to resolving encephalopathy. <Lee Merchant - Last Filed: 07/23/17 15:57> Exam Vital signs: Temperature 96.8 F 07/23/17 08:00 Pulse Rate 59 L 07/23/17 11:21 Respiratory Rate 18 07/23/17 11:21 Blood Pressure 136/81 07/23/17 11:21 Pulse Oximetry 94 07/23/17 12:25 Inpatient Medications: Generic Name Dose Route Start Last Admin Trade Name Freq PRN Reason Stop Dose Admin Acetazolamide 250 mg 07/23/17 09:00 07/23/17 08:15 Diamox 250 Mg PO 250 mg DAILY RICHARD Administration Albuterol/Ipratropium 3 ml 07/16/17 10:02 07/22/17 01:14 Duoneb AEROSOL 3 ml RTQID PRN Administration Arformoterol Tartrate 15 mcg 07/16/17 12:00 07/23/17 06:52 Brovana Neb AEROSOL 15 mcg RTBID RICHARD Administration Bisacodyl 10 mg 07/18/17 17:02 Dulcolax RECTALLY DAILY PRN Constipation Budesonide 0.5 mg 07/16/17 12:00 07/23/17 08:07 Pulmicort Inhalation AEROSOL 0.5 mg RTBID RICHARD Administration Carvedilol 25 mg 07/22/17 12:30 07/23/17 08:15 Coreg PO 25 mg BIDWM RICHARD Administration Furosemide 40 mg 07/16/17 12:00 07/23/17 08:15 Lasix 40 Mg Tab PO 40 mg DAILY RICHARD Administration Gabapentin 300 mg 07/16/17 21:00 07/22/17 22:34 Neurontin PO 300 mg HS RICHARD Administration Gabapentin 200 mg 07/16/17 14:00 07/23/17 13:26 Neurontin PO 200 mg 0800,1400 RICHARD Administration Ceftriaxone Sodium 1 g/ Sodium 100 mls @ 200 mls/hr 07/16/17 11:00 07/23/17 11:55 Chloride IV Infused Q24H RICHARD Infusion Insulin Aspart 1 - 5 unit 07/16/17 15:03 Novolog SQ SS PRN Hyperglycemia Protocol Lisinopril 5 mg 07/21/17 09:00 07/23/17 08:15 Prinivil PO 5 mg DAILY RICHARD Administration Lorazepam 0.5 mg 07/15/17 22:19 07/16/17 04:21 Ativan Inj IVP 0.5 mg Q4H PRN Administration Agitation/Restlessness Magnesium Hydroxide 30 ml 07/18/17 17:02 Mom PO DAILY PRN Constipation Ondansetron HCl 4 mg 07/15/17 21:51 Zofran IVP Q6H PRN Nausea &/or vomiting Pantoprazole Sodium 40 mg 07/21/17 06:30 07/23/17 06:00 Protonix Tab PO 40 mg ACB RICHARD Administration Rivaroxaban 20 mg 07/18/17 17:30 07/22/17 17:14 Xarelto PO 20 mg WS RICHARD Administration Sertraline HCl 50 mg 07/16/17 10:00 07/23/17 08:15 Zoloft PO 50 mg DAILY RICHARD Administration Sodium Chloride 10 - 80 ml 07/15/17 18:38 07/22/17 10:13 Iv Flush IVF 10 ml PRN PRN Administration Flushing Sodium Chloride 500 ml 07/17/17 03:45 07/17/17 04:14 Normal Saline IV 500 ml PRN PRN Administration Discontinued Medications Generic Name Dose Route Start Last Admin Trade Name Freq PRN Reason Stop Dose Admin Acetazolamide 250 mg 07/21/17 09:00 07/22/17 10:13 Diamox 250 Mg PO 250 mg BID RICHARD Administration Amiodarone HCl 200 mg 07/16/17 12:00 07/16/17 14:36 Pacerone PO 200 mg DAILY RICHARD Administration Carvedilol 3.125 mg 07/16/17 17:30 07/17/17 09:07 Coreg PO 3.125 mg BIDWM RICHARD Administration Carvedilol 6.25 mg 07/17/17 17:30 07/20/17 09:03 Coreg PO 6.25 mg BIDWM RICHARD Administration Carvedilol 12.5 mg 07/20/17 17:30 07/22/17 10:14 Coreg PO 12.5 mg BIDWM RICHARD Administration Carvedilol 25 mg 07/22/17 12:15 Coreg PO BIDWM RICHARD Heparin Sodium (Porcine) 5,000 units 07/16/17 09:45 07/18/17 08:16 Heparin Sq SQ 5,000 units Q8HR RICHARD Administration Dextrose/Sodium Chloride 1,000 mls @ 250 mls/hr 07/15/17 18:30 07/16/17 04:50 Dextrose 5%-Normal Saline IV Not Given .Q4H RICHARD Dextrose/Sodium Chloride 1,000 mls @ 50 mls/hr 07/15/17 22:00 07/16/17 08:31 D5-1/2ns IV Infused .Q20H RICHARD Infusion Ceftriaxone Sodium 1 g/ Sodium 100 mls @ 200 mls/hr 07/15/17 22:19 07/16/17 01:04 Chloride IV 07/15/17 22:48 Infused O ONE Infusion Vancomycin HCl 2,000 mg/ 500 mls @ 250 mls/hr 07/16/17 07:10 07/16/17 10:38 Sodium Chloride IV 07/16/17 07:11 Infused O ONE Infusion Vancomycin HCl 1,000 mg/ 250 mls @ 250 mls/hr 07/16/17 08:56 Sodium Chloride IV 07/16/17 08:57 O ONE Vancomycin HCl 1,000 mg/ 250 mls @ 250 mls/hr 07/16/17 16:30 07/18/17 05:18 Sodium Chloride IV Infused Q12H RICHARD Infusion Vancomycin HCl 1,250 mg/ 250 mls @ 200 mls/hr 07/18/17 16:00 07/19/17 06:30 Sodium Chloride IV Infused Q12H RICHARD Infusion Lisinopril 2.5 mg 07/16/17 12:00 07/16/17 14:35 Prinivil PO 2.5 mg DAILY RICHARD Administration Lisinopril 2.5 mg 07/18/17 11:00 07/20/17 09:03 Prinivil PO 2.5 mg DAILY RICHARD Administration Lorazepam 2 mg 07/15/17 18:28 07/15/17 22:15 Ativan Inj IVP 07/15/17 18:29 2 mg O ONE Administration Metoclopramide HCl 5 mg 07/15/17 21:51 Reglan IVP Q6H PRN Morphine Sulfate 1 - 2 mg 07/15/17 21:51 Morphine Sulf 2 Mg Inj IVP Q2H PRN Pain Pantoprazole Sodium 40 mg 07/16/17 09:00 07/20/17 09:04 Protonix Iv IVP 40 mg DAILY RICHARD Administration Pharmacy Consult each 07/16/17 00:49 Pharmacy Consult - Fall Risk 07/16/17 00:50 ONE TIME ONE Sertraline HCl 50 mg 07/19/17 09:00 Zoloft PO DAILY RICHARD Simvastatin 20 mg 07/16/17 21:00 Zocor PO HS RICHARD Sodium Chloride 10 - 80 ml 07/15/17 18:28 07/16/17 10:43 Iv Flush IVF 40 ml PRN PRN Administration Flushing Vancomycin HCl 1 each 07/16/17 06:22 07/16/17 08:31 Pharmacy Consult - Vancomycin 07/16/17 06:23 1 each O ONE Administration - Urinary Catheter Management Urethral Cath placed during this visit: no Results 07/23/17 03:53 07/23/17 03:53 Cardiac Enzymes 07/23/17 Range/Units 03:53 AST 47 D (17-59) U/L CBC 07/23/17 Range/Units 03:53 WBC 9.3 (4.5-11.0) T/MM3 RBC 4.22 L (4.50-5.90) M/MM3 Hgb 11.5 L (13.5-17.5) GM/DL Hct 39.1 L (41-53) % Plt Count 126 L (130-400) T/MM3 Comprehensive Metabolic Panel 07/23/17 07/23/17 Range/Units 03:53 03:53 Sodium 146 H (134-144) MEQ/L Potassium 3.6 (3.6-5) MEQ/L Chloride 103 (98-107) MEQ/L Carbon Dioxide 33 H (22-30) MEQ/L BUN 13.0 (9-20) MG/DL Creatinine 0.9 (0.8-1.5) mg/dL Glucose 113 H (75-110) MG/DL Calcium 8.9 (8.4-10.2) MG/DL Unconjugated Bilirubin 0.00 (0.00-1.1) mg/dL AST 47 D (17-59) U/L ALT 108 H (1-50) U/L Alkaline Phosphatase 105 (38-126) U/L Total Protein 6.5 (6.3-8.2) g/dL Albumin 3.3 L 3.3 L (3.5-5.0) g/dL Intake and Output 07/23/17 07/23/17 07/23/17 06:59 14:59 22:59 Intake Total 450 / 450 100 / 100 Balance 450 / 450 100 / 100 Intake: IV 100 / 100 Ceftriaxone 1 g In Ns 100 ml @ 100 / 100 200 mls/hr IV Q24H [facility] Rx#: [id number] Oral 450 / 450 Other: # Voids 1 Weight 131.5 kg Patient Weight 07/24/17 06:59 Weight 131.5 kg Assessment and Plan - Assessment and Plan (1) Dilated cardiomyopathy Problem details: EF 10-15% with 3/4 diastolic dysfunction on 06/11/17 EF 30% on TTE done 10/2015; global hypokinesis and dilated LV; EF 55% 09/2016 Current visit: No Status: Chronic (2) Hypertension Problem details: Off all medications for > 6 months, uncontrolled Current visit: No Status: Chronic (3) COPD, severe Problem details: on 3L NC chronically at home Current visit: No Status: Chronic (4) Tobacco dependence syndrome Problem details: Ongoing, discussed cessation, unclear how much he is smoking routinely Current visit: No Status: Chronic (5) Congestive heart failure Problem details: Systolic Current visit: No Status: Acute (6) Methamphetamine intoxication Current visit: Yes Status: Acute (7) Methamphetamine substance use disorder, mild, in sustained remission, in controlled environment, abuse Current visit: Yes Status: Chronic (8) Hypoglycemia Current visit: Yes Status: Acute (9) Acute kidney injury Current visit: Yes Status: Acute (10) PAF (paroxysmal atrial fibrillation) Current visit: Yes Status: Chronic - Attestation Attestation Narrative: 07/23/17 15:57 Recommendation After examining the patient I agree with the above assessment. I am involved in the formulation of the patient's plan of care. Hospital Course Summary Disclaimer: The visit summary below is not to be considered part of the above Progress Note.
[2017-07-17] MEDS: ARFORMOTEROL NEB 15mcg/2ml AEROSOL SCH ×2 (15:28→20:54)
[2017-07-17] MEDS: CARVEDILOL 6.25 MG TABLET PO SCH (17:55)
[2017-07-17] MEDS: GABAPENTIN 300 MG CAPSULE PO SCH (20:36)
[2017-07-18] MEDS: HEPARIN SUB-Q 5,000units/0.5ml INJECTION SQ SCH ×2 (04:17→08:16)
[2017-07-18] MEDS: BUDESONIDE INH.SOLN 0.5mg/2ml NEB AEROSOL SCH ×2 (07:42→20:23)
[2017-07-18] MEDS: ARFORMOTEROL NEB 15mcg/2ml AEROSOL SCH ×2 (07:43→18:42)
--- NOTE | 2017-07-18 08:06 | XRay Report ---
Indication: F/U PROCEDURE: XR chest 1V: Encounter: Initial Comparison: July 16, 2017 Findings: New right PICC line in place with the tip projecting over the right atrium. Overlying monitoring leads. No focal consolidative pneumonia. No pneumothorax or effusion. Cardiac silhouette remains enlarged. Mediastinal contours are stable. Pulmonary vascularity is normal. Impression: Right PICC line tip projects over the right atrium. This could be retracted by approximately 3 cm to reside at the cavoatrial junction if desired. .
[2017-07-18] MEDS: FUROSEMIDE 40 MG TABLET PO SCH (08:15)
[2017-07-18] MEDS: SERTRALINE 50 MG TABLET PO SCH (08:15)
[2017-07-18] MEDS: GABAPENTIN 100 MG CAPSULE PO SCH ×2 (08:15→13:55)
[2017-07-18] MEDS: CARVEDILOL 6.25 MG TABLET PO SCH ×2 (08:15→17:18)
[2017-07-18] MEDS: PANTOPRAZOLE 40 MG INJECTION IVP SCH (08:16)
[2017-07-18] MEDS: SALINE FLUSH 10ml SYRINGE IVF PRN ×3 (08:16→15:26)
--- NOTE | 2017-07-18 09:34 | Pulmonology Progress Note ---
Subjective Principal diagnosis: CM, CHF Interval history: Pt in bed sleeping on 3L, states he used his home trilogy last noc. Breathing better, no SOB or cough at this time. Exam Vital signs: Temperature 97.5 F 07/18/17 07:43 Pulse Rate 66 07/18/17 08:53 Respiratory Rate 18 07/18/17 08:53 Blood Pressure 142/86 H 07/18/17 08:53 Pulse Oximetry 96 07/18/17 08:53 Inpatient Medications: Generic Name Dose Route Start Last Admin Trade Name Freq PRN Reason Stop Dose Admin Albuterol/Ipratropium 3 ml 07/16/17 10:02 07/17/17 15:22 Duoneb AEROSOL 3 ml RTQID PRN Administration Arformoterol Tartrate 15 mcg 07/16/17 12:00 07/18/17 07:43 Brovana Neb AEROSOL 15 mcg RTBID RICHARD Administration Budesonide 0.5 mg 07/16/17 12:00 07/18/17 07:42 Pulmicort Inhalation AEROSOL 0.5 mg RTBID RICHARD Administration Carvedilol 6.25 mg 07/17/17 17:30 07/18/17 08:15 Coreg PO 6.25 mg BIDWM RICHARD Administration Furosemide 40 mg 07/16/17 12:00 07/18/17 08:15 Lasix 40 Mg Tab PO 40 mg DAILY RICHARD Administration Gabapentin 300 mg 07/16/17 21:00 07/17/17 20:36 Neurontin PO 300 mg HS RICHARD Administration Gabapentin 200 mg 07/16/17 14:00 07/18/17 08:15 Neurontin PO 200 mg 0800,1400 RICHARD Administration Heparin Sodium (Porcine) 5,000 units 07/16/17 09:45 07/18/17 08:16 Heparin Sq SQ 5,000 units Q8HR RICHARD Administration Ceftriaxone Sodium 1 g/ Sodium 100 mls @ 200 mls/hr 07/16/17 11:00 07/17/17 10:33 Chloride IV 200 mls/hr Q24H RICHARD Administration Vancomycin HCl 1,000 mg/ 250 mls @ 250 mls/hr 07/16/17 16:30 07/18/17 05:18 Sodium Chloride IV Infused Q12H RICHARD Infusion Insulin Aspart 1 - 5 unit 07/16/17 15:03 Novolog SQ SS PRN Hyperglycemia Protocol Lorazepam 0.5 mg 07/15/17 22:19 07/16/17 04:21 Ativan Inj IVP 0.5 mg Q4H PRN Administration Agitation/Restlessness Metoclopramide HCl 5 mg 07/15/17 21:51 Reglan IVP Q6H PRN Morphine Sulfate 1 - 2 mg 07/15/17 21:51 Morphine Sulf 2 Mg Inj IVP Q2H PRN Pain Ondansetron HCl 4 mg 07/15/17 21:51 Zofran IVP Q6H PRN Nausea &/or vomiting Pantoprazole Sodium 40 mg 07/16/17 09:00 07/18/17 08:16 Protonix Iv IVP 40 mg DAILY RICHARD Administration Sertraline HCl 50 mg 07/16/17 10:00 07/18/17 08:15 Zoloft PO 50 mg DAILY RICHARD Administration Sodium Chloride 10 - 80 ml 07/15/17 18:38 07/18/17 08:16 Iv Flush IVF 30 ml PRN PRN Administration Flushing Sodium Chloride 500 ml 07/17/17 03:45 07/17/17 04:14 Normal Saline IV 500 ml PRN PRN Administration Discontinued Medications Generic Name Dose Route Start Last Admin Trade Name Freq PRN Reason Stop Dose Admin Amiodarone HCl 200 mg 07/16/17 12:00 07/16/17 14:36 Pacerone PO 200 mg DAILY RICHARD Administration Carvedilol 3.125 mg 07/16/17 17:30 07/17/17 09:07 Coreg PO 3.125 mg BIDWM RICHARD Administration Dextrose/Sodium Chloride 1,000 mls @ 250 mls/hr 07/15/17 18:30 07/16/17 04:50 Dextrose 5%-Normal Saline IV Not Given .Q4H RICHARD Dextrose/Sodium Chloride 1,000 mls @ 50 mls/hr 07/15/17 22:00 07/16/17 08:31 D5-1/2ns IV Infused .Q20H RICHARD Infusion Ceftriaxone Sodium 1 g/ Sodium 100 mls @ 200 mls/hr 07/15/17 22:19 07/16/17 01:04 Chloride IV 07/15/17 22:48 Infused O ONE Infusion Vancomycin HCl 2,000 mg/ 500 mls @ 250 mls/hr 07/16/17 07:10 07/16/17 10:38 Sodium Chloride IV 07/16/17 07:11 Infused O ONE Infusion Vancomycin HCl 1,000 mg/ 250 mls @ 250 mls/hr 07/16/17 08:56 Sodium Chloride IV 07/16/17 08:57 O ONE Lisinopril 2.5 mg 07/16/17 12:00 07/16/17 14:35 Prinivil PO 2.5 mg DAILY RICHARD Administration Lorazepam 2 mg 07/15/17 18:28 07/15/17 22:15 Ativan Inj IVP 07/15/17 18:29 2 mg O ONE Administration Pharmacy Consult each 07/16/17 00:49 Pharmacy Consult - Fall Risk 07/16/17 00:50 ONE TIME ONE Simvastatin 20 mg 07/16/17 21:00 Zocor PO HS RICHARD Sodium Chloride 10 - 80 ml 07/15/17 18:28 07/16/17 10:43 Iv Flush IVF 40 ml PRN PRN Administration Flushing Vancomycin HCl 1 each 07/16/17 06:22 07/16/17 08:31 Pharmacy Consult - Vancomycin MC 07/16/17 06:23 1 each O ONE Administration - Constitutional no acute distress, obese, cooperative - Routine HEENT Exam Head: Present: normocephalic, atraumatic Eye: Present: EOMI, PERRL ENT: Present: mucous membranes moist - Routine Neck Exam Present: supple, full ROM, trachea midline - Routine Respiratory Exam Present: decreased breath sounds. Absent: accessory muscle use, patient mechanically ventilated, wheezes - Routine Cardiovascular Exam Present: RRR, S1, S2, no murmur - Routine Abdominal Exam Present: soft, normoactive bowel sounds - Routine Extremities Exam Present: non tender, full ROM. Absent: cyanosis, clubbing - Routine Back/Spine/Pelvis Exam Back/Spine: Present: full ROM - Routine Skin Exam Present: intact, dry - Routine Neurological Exam Present: alert, oriented X3, CN II-XII intact - Routine Psychiatric Exam Present: normal affect, normal thought process - Urinary Catheter Management Urethral Cath placed during this visit: yes Insertion date: 07/15/17 Insertion time: 22:45 Results - Laboratory Findings Laboratory: Laboratory Results - last 48 hr 07/15/17 07/16/17 07/16/17 20:43 10:58 12:21 WBC RBC Hgb Hct MCV MCH MCHC RDW Std Deviation Plt Count MPV Immature Gran % (Auto) Neut % (Auto) Lymph % (Auto) Slope % (Auto) Eos % (Auto) Baso % (Auto) Neut # (Auto) Lymph # (Auto) Slope # (Auto) Eos # (Auto) Baso # (Auto) Abs Immat Gran (auto) Turbidity < 20 Sodium 138 Potassium 4.4 D Chloride 97 L Carbon Dioxide 31 H Anion Gap 10 BUN 52.0 H* Creatinine 2.4 H GFR Calculation 29 BUN/Creatinine Ratio 22 Glucose 129 H Glucometer 122 Calculated Osmolality 282 H Calcium 8.1 L Magnesium Total Bilirubin 2.60 H Conjugated Bilirubin 0.70 H Unconjugated Bilirubin 0.70 Icterus Index < 2 AST 1169 H ALT 548 H Alkaline Phosphatase 110 NT-Pro-B Natriuret Pep 8550 H Total Protein 6.2 L Albumin 3.4 L Globulin 2.8 Albumin/Globulin Ratio 1.2 Specimen Hemolysis < 15 Vancomycin Trough Hepatitis A IgM Ab Negative Hep Bs Antigen Negative Hep B Core IgM Ab Negative Hepatitis C Antibody Negative 07/16/17 07/16/17 07/17/17 16:01 21:08 04:08 WBC RBC Hgb Hct MCV MCH MCHC RDW Std Deviation Plt Count MPV Immature Gran % (Auto) Neut % (Auto) Lymph % (Auto) Slope % (Auto) Eos % (Auto) Baso % (Auto) Neut # (Auto) Lymph # (Auto) Slope # (Auto) Eos # (Auto) Baso # (Auto) Abs Immat Gran (auto) Turbidity Sodium Potassium Chloride Carbon Dioxide Anion Gap BUN Creatinine GFR Calculation BUN/Creatinine Ratio Glucose Glucometer 113 122 87 Calculated Osmolality Calcium Magnesium Total Bilirubin Conjugated Bilirubin Unconjugated Bilirubin Icterus Index AST ALT Alkaline Phosphatase NT-Pro-B Natriuret Pep Total Protein Albumin Globulin Albumin/Globulin Ratio Specimen Hemolysis Vancomycin Trough Hepatitis A IgM Ab Hep Bs Antigen Hep B Core IgM Ab Hepatitis C Antibody 07/17/17 07/17/17 07/17/17 04:23 04:23 12:24 WBC 11.8 H RBC 4.33 L Hgb 11.8 L Hct 38.0 L MCV 87.8 MCH 27.3 MCHC 31.1 RDW Std Deviation 55.9 H Plt Count 176 MPV 10.4 Immature Gran % (Auto) 0.3 Neut % (Auto) 81.7 H Lymph % (Auto) 10.5 L Slope % (Auto) 7.1 Eos % (Auto) 0.3 Baso % (Auto) 0.1 Neut # (Auto) 9.6 H Lymph # (Auto) 1.2 Slope # (Auto) 0.8 Eos # (Auto) 0.0 Baso # (Auto) 0.0 Abs Immat Gran (auto) 0.03 Turbidity < 20 Sodium 142 Potassium 3.8 Chloride 99 Carbon Dioxide 33 H Anion Gap 10 BUN 51.0 H* Creatinine 1.8 H D GFR Calculation 40 BUN/Creatinine Ratio 28 H Glucose 95 Glucometer 106 Calculated Osmolality 287 H Calcium 7.9 L Magnesium 2.1 Total Bilirubin 1.50 H Conjugated Bilirubin 0.00 Unconjugated Bilirubin 0.40 Icterus Index < 2 AST 663 H ALT 458 H Alkaline Phosphatase 111 NT-Pro-B Natriuret Pep Total Protein 6.1 L Albumin 3.2 L Globulin 2.9 Albumin/Globulin Ratio 1.1 Specimen Hemolysis < 15 Vancomycin Trough Hepatitis A IgM Ab Hep Bs Antigen Hep B Core IgM Ab Hepatitis C Antibody 07/17/17 07/17/17 07/18/17 17:06 21:16 04:16 WBC RBC Hgb Hct MCV MCH MCHC RDW Std Deviation Plt Count MPV Immature Gran % (Auto) Neut % (Auto) Lymph % (Auto) Slope % (Auto) Eos % (Auto) Baso % (Auto) Neut # (Auto) Lymph # (Auto) Slope # (Auto) Eos # (Auto) Baso # (Auto) Abs Immat Gran (auto) Turbidity Sodium Potassium Chloride Carbon Dioxide Anion Gap BUN Creatinine GFR Calculation BUN/Creatinine Ratio Glucose Glucometer 164 134 Calculated Osmolality Calcium Magnesium Total Bilirubin Conjugated Bilirubin Unconjugated Bilirubin Icterus Index AST ALT Alkaline Phosphatase NT-Pro-B Natriuret Pep Total Protein Albumin Globulin Albumin/Globulin Ratio Specimen Hemolysis Vancomycin Trough 14.85 L Hepatitis A IgM Ab Hep Bs Antigen Hep B Core IgM Ab Hepatitis C Antibody 07/18/17 07/18/17 04:16 04:16 WBC 7.1 RBC 4.25 L Hgb 11.6 L Hct 38.0 L MCV 89.4 MCH 27.3 MCHC 30.5 L RDW Std Deviation 58.4 H Plt Count 143 MPV 10.6 Immature Gran % (Auto) 0.0 Neut % (Auto) 74.4 H Lymph % (Auto) 12.1 L Slope % (Auto) 12.1 H Eos % (Auto) 1.3 Baso % (Auto) 0.1 Neut # (Auto) 5.3 Lymph # (Auto) 0.9 L Slope # (Auto) 0.9 H Eos # (Auto) 0.1 Baso # (Auto) 0.0 Abs Immat Gran (auto) 0.00 Turbidity < 20 Sodium 144 Potassium 4.0 Chloride 98 Carbon Dioxide 36 H Anion Gap 10 BUN 33.0 H Creatinine 1.1 D GFR Calculation 70 BUN/Creatinine Ratio 30 H Glucose 123 H Glucometer Calculated Osmolality 285 H Calcium 8.2 L Magnesium 2.0 Total Bilirubin 1.10 Conjugated Bilirubin Unconjugated Bilirubin Icterus Index < 2 AST 374 H ALT 366 H Alkaline Phosphatase 113 NT-Pro-B Natriuret Pep Total Protein 6.4 Albumin 3.4 L Globulin 3.0 Albumin/Globulin Ratio 1.1 Specimen Hemolysis < 15 Vancomycin Trough Hepatitis A IgM Ab Hep Bs Antigen Hep B Core IgM Ab Hepatitis C Antibody - Diagnostic Findings Chest x-ray: image reviewed (cardiomegaly but no overt failure) Assessment and Plan - Assessment and Plan Acute on Chronic Hypoxic Hypercapnic Respiratory Failure COPD - unknown severity, was to be on BT's at home but unsure if he has been using his meds was supposed to be on budesonde BID and brovana BID with albuterol neb 1-2 times a day Methamphetamine use Acute on Chronic systolic HF/non ischemic cardiomyopathy, current EF less then 10% MARGI Atrial fibrillation hypoglycemia Abdominal cellulitis Plan: Pt currently on 3L per [place], otherwise using his home trilogy at [facility]. Will continue his BT's with budesonde BID, brovana BID with albuterol neb prn. CXR with cardiomegaly. Echo completed, awaiting official results and cardiology consulted. Cr improving along with liver enzymes. WBC normal, abdominal cellulitis noted on vanco, afebrile. follow closely. - Time Spent With Patient Total time spent is greater than 50% in coordination of care (as documented) at patient's floor/unit and/or counseling patient: less than 15 minutes
[2017-07-18] MEDS: CEFTRIAXONE 1 G in NS 100 ML IV SCH (10:53)
--- NOTE | 2017-07-18 10:54 | Cardiology Progress Note ---
<Caryl Salas - Last Filed: 07/18/17 19:13> Subjective Principal diagnosis: CM, CHF Interval history: Gray is seen in follow up for CM and CHF. Gray is seen in his room on the Medical unit. He is alert and sitting up in the chair. He denies chest pain or palpitations. He remains on 3L/NC in no acute distress. Exam Vital signs: Temperature 97.5 F 07/18/17 07:43 Pulse Rate 66 07/18/17 08:53 Respiratory Rate 18 07/18/17 08:53 Blood Pressure 142/86 H 07/18/17 08:53 Pulse Oximetry 96 07/18/17 08:53 Inpatient Medications: Generic Name Dose Route Start Last Admin Trade Name Freq PRN Reason Stop Dose Admin Albuterol/Ipratropium 3 ml 07/16/17 10:02 07/17/17 15:22 Duoneb AEROSOL 3 ml RTQID PRN Administration Arformoterol Tartrate 15 mcg 07/16/17 12:00 07/18/17 07:43 Brovana Neb AEROSOL 15 mcg RTBID RICHARD Administration Budesonide 0.5 mg 07/16/17 12:00 07/18/17 07:42 Pulmicort Inhalation AEROSOL 0.5 mg RTBID RICHARD Administration Carvedilol 6.25 mg 07/17/17 17:30 07/18/17 08:15 Coreg PO 6.25 mg BIDWM RICHARD Administration Furosemide 40 mg 07/16/17 12:00 07/18/17 08:15 Lasix 40 Mg Tab PO 40 mg DAILY RICHARD Administration Gabapentin 300 mg 07/16/17 21:00 07/17/17 20:36 Neurontin PO 300 mg HS RICHARD Administration Gabapentin 200 mg 07/16/17 14:00 07/18/17 08:15 Neurontin PO 200 mg 0800,1400 RICHARD Administration Heparin Sodium (Porcine) 5,000 units 07/16/17 09:45 07/18/17 08:16 Heparin Sq SQ 5,000 units Q8HR RICHARD Administration Ceftriaxone Sodium 1 g/ Sodium 100 mls @ 200 mls/hr 07/16/17 11:00 07/17/17 10:33 Chloride IV 200 mls/hr Q24H RICHARD Administration Vancomycin HCl 1,000 mg/ 250 mls @ 250 mls/hr 07/16/17 16:30 07/18/17 05:18 Sodium Chloride IV Infused Q12H RICHARD Infusion Insulin Aspart 1 - 5 unit 07/16/17 15:03 Novolog SQ SS PRN Hyperglycemia Protocol Lisinopril 2.5 mg 07/18/17 11:00 Prinivil PO DAILY RICHARD Lorazepam 0.5 mg 07/15/17 22:19 07/16/17 04:21 Ativan Inj IVP 0.5 mg Q4H PRN Administration Agitation/Restlessness Metoclopramide HCl 5 mg 07/15/17 21:51 Reglan IVP Q6H PRN Morphine Sulfate 1 - 2 mg 07/15/17 21:51 Morphine Sulf 2 Mg Inj IVP Q2H PRN Pain Ondansetron HCl 4 mg 07/15/17 21:51 Zofran IVP Q6H PRN Nausea &/or vomiting Pantoprazole Sodium 40 mg 07/16/17 09:00 07/18/17 08:16 Protonix Iv IVP 40 mg DAILY RICHARD Administration Sertraline HCl 50 mg 07/16/17 10:00 07/18/17 08:15 Zoloft PO 50 mg DAILY RICHARD Administration Sodium Chloride 10 - 80 ml 07/15/17 18:38 07/18/17 08:16 Iv Flush IVF 30 ml PRN PRN Administration Flushing Sodium Chloride 500 ml 07/17/17 03:45 07/17/17 04:14 Normal Saline IV 500 ml PRN PRN Administration Discontinued Medications Generic Name Dose Route Start Last Admin Trade Name Freq PRN Reason Stop Dose Admin Amiodarone HCl 200 mg 07/16/17 12:00 07/16/17 14:36 Pacerone PO 200 mg DAILY RICHARD Administration Carvedilol 3.125 mg 07/16/17 17:30 07/17/17 09:07 Coreg PO 3.125 mg BIDWM RICHARD Administration Dextrose/Sodium Chloride 1,000 mls @ 250 mls/hr 07/15/17 18:30 07/16/17 04:50 Dextrose 5%-Normal Saline IV Not Given .Q4H RICHARD Dextrose/Sodium Chloride 1,000 mls @ 50 mls/hr 07/15/17 22:00 07/16/17 08:31 D5-1/2ns IV Infused .Q20H RICHARD Infusion Ceftriaxone Sodium 1 g/ Sodium 100 mls @ 200 mls/hr 07/15/17 22:19 07/16/17 01:04 Chloride IV 07/15/17 22:48 Infused O ONE Infusion Vancomycin HCl 2,000 mg/ 500 mls @ 250 mls/hr 07/16/17 07:10 07/16/17 10:38 Sodium Chloride IV 07/16/17 07:11 Infused O ONE Infusion Vancomycin HCl 1,000 mg/ 250 mls @ 250 mls/hr 07/16/17 08:56 Sodium Chloride IV 07/16/17 08:57 O ONE Lisinopril 2.5 mg 07/16/17 12:00 07/16/17 14:35 Prinivil PO 2.5 mg DAILY RICHARD Administration Lorazepam 2 mg 07/15/17 18:28 07/15/17 22:15 Ativan Inj IVP 07/15/17 18:29 2 mg O ONE Administration Pharmacy Consult each 07/16/17 00:49 Pharmacy Consult - Fall Risk 07/16/17 00:50 ONE TIME ONE Simvastatin 20 mg 07/16/17 21:00 Zocor PO HS RICHARD Sodium Chloride 10 - 80 ml 07/15/17 18:28 07/16/17 10:43 Iv Flush IVF 40 ml PRN PRN Administration Flushing Vancomycin HCl 1 each 07/16/17 06:22 07/16/17 08:31 Pharmacy Consult - Vancomycin 07/16/17 06:23 1 each O ONE Administration - Constitutional no acute distress, obese - Routine HEENT Exam Head: Present: normocephalic ENT: Present: mucous membranes moist - Routine Neck Exam Absent: JVD, carotid bruit - Routine Chest/Breast/Axilla Exam Chest wall: Absent: tenderness - Routine Respiratory Exam Present: decreased breath sounds. Absent: rales, wheezes - Routine Cardiovascular Exam Present: RRR, no murmur - Routine Abdominal Exam Present: soft, non tender - Routine Extremities Exam Present: no edema - Routine Skin Exam Present: intact, dry, warm - Routine Neurological Exam Present: alert, oriented X3 - Routine Psychiatric Exam Present: normal affect, normal thought process - Urinary Catheter Management Urethral Cath placed during this visit: yes Insertion date: 07/15/17 Insertion time: 22:45 Results 07/18/17 04:16 07/18/17 04:16 Cardiac Enzymes 07/18/17 Range/Units 04:16 AST 374 H (17-59) U/L CBC 07/18/17 Range/Units 04:16 WBC 7.1 (4.5-11.0) T/MM3 RBC 4.25 L (4.50-5.90) M/MM3 Hgb 11.6 L (13.5-17.5) GM/DL Hct 38.0 L (41-53) % Plt Count 143 (130-400) T/MM3 Neut # (Auto) 5.3 (1.8-7.7) T/MM3 Lymph # (Auto) 0.9 L (1-4.8) T/MM3 [place] # (Auto) 0.9 H (0-0.8) T/MM3 Eos # (Auto) 0.1 (0-0.5) T/MM3 Baso # (Auto) 0.0 (0-0.2) T/MM3 Comprehensive Metabolic Panel 07/18/17 Range/Units 04:16 Sodium 144 (134-144) MEQ/L Potassium 4.0 (3.6-5) MEQ/L Chloride 98 (98-107) MEQ/L Carbon Dioxide 36 H (22-30) MEQ/L BUN 33.0 H (9-20) MG/DL Creatinine 1.1 D (0.8-1.5) mg/dL Glucose 123 H (75-110) MG/DL Calcium 8.2 L (8.4-10.2) MG/DL AST 374 H (17-59) U/L ALT 366 H (1-50) U/L Alkaline Phosphatase 113 (38-126) U/L Total Protein 6.4 (6.3-8.2) g/dL Albumin 3.4 L (3.5-5.0) g/dL Intake and Output 07/17/17 07/18/17 07/18/17 22:59 06:59 14:59 Intake Total 250 / 250 250 / 250 Output Total 860 / 860 800 / 800 Balance -610 / -610 -550 / -550 Intake: IV 250 / 250 250 / 250 Vancomycin 1,000 mg In NS 250ml 250 / 250 250 / 250 250 ml @ 250 mls/hr IV Q12H [facility] Rx#:[id number] Output: Urine Amount (Catheter) 860 / 860 800 / 800 Other: Urine Appearance Clear Clear Urine Color Yellow Yellow Weight 294 lb 8.601 oz Patient Weight 07/19/17 06:59 Weight 294 lb 8.601 oz - Imaging and Cardiology Imaging & Cardiology Narrative: Date of Exam: 07/18/17 Ordering Provider: David Medrano MD Type of Exam(s): XR chest 1V Reason for Exam(s): F/U Indication: F/U PROCEDURE: XR chest 1V: Encounter: Initial Comparison: July 16, 2017 Findings: New right PICC line in place with the tip projecting over the right atrium. Overlying monitoring leads. No focal consolidative pneumonia. No pneumothorax or effusion. Cardiac silhouette remains enlarged. Mediastinal contours are stable. Pulmonary vascularity is normal. Impression: Right PICC line tip projects over the right atrium. This could be retracted by approximately 3 cm to reside at the cavoatrial junction if desired. 07/18/17 10:55 Assessment and Plan - Assessment and Plan (1) Methamphetamine intoxication Status: Acute (2) Hypoglycemia Status: Acute (3) Congestive heart failure Problem details: Systolic Status: Acute (4) Acute kidney injury Status: Acute (5) Methamphetamine substance use disorder, mild, in sustained remission, in controlled environment, abuse Status: Chronic (6) Dilated cardiomyopathy Problem details: EF 10-15% with 3/4 diastolic dysfunction on 06/11/17 EF 30% on TTE done 10/2015; global hypokinesis and dilated LV; EF 55% 09/2016 Status: Chronic (7) Hypertension Problem details: Off all medications for > 6 months, uncontrolled Status: Chronic (8) COPD, severe Problem details: on 3L NC chronically at home Status: Chronic (9) Tobacco dependence syndrome Problem details: Ongoing, discussed cessation, unclear how much he is smoking routinely Status: Chronic (10) PAF (paroxysmal atrial fibrillation) Status: Chronic - Assessment and Plan 07/16/17 Meth intoxication: Found unresponsive by friends who reported Meth use to EMS - UDS positive for amphetamines and methamphetamines - Patient denied use Hypoglycemia: EMS documented BG of 25 - No insulin found with his other medications Systolic CHF: Acute on chronic - BNP 8550 - Diuresis with Lasix 40mg daily MARGI: BUN/ SCr 43/ 2.4 on admission - Hold Lisinopril Dilated CM: Discharged last hospitalization with LifeVest on - Patient not wearing Life Vest - Continue low dose Coreg as tolerated when able to swallow PO HTN: Hold Lisinopril until renal function improves to baseline Meth abuse COPD Tobacco dependence Thank you for letting us participate in the care of this patient, we will follow along with you. 07/17/17 Alert today, denies complaints - Increase Coreg to 6.25mg BID MARGI: improving, BUN 51/ SCr 1.8 today 07/18/17 PAF: Afib with Aberrancy seen on telemetry - Continue to hold Amiodarone for now due to LFTs, slowly improving. - AST 1169 ->663 ->374, ALT 548 -> 458 -> 366 - Need to consider restarting Xarelto Vs. Coumadin for chronic anticoagulation for PAF MARGI: BUN 33/SCr 1.1 today - Resume low dose Lisinopril Hospital Course Summary Disclaimer: The visit summary below is not to be considered part of the above Progress Note. Hospital Course: 07/15/17 Admission - CCU Check ABG - concerned about R/O AMI w serial enzymes Ativan PRN and restraints for patient and staff safety IV Rocephin x 1 for abd wall cellulitis, start vanco in AM when better IV access myrtle, asked nursing to cassandra cellulitis w line Get off iv fluids fouzia with recent CHF issues Nebs PRN, no wheezing noted and minimal O2 requirements at this time Follow labs, check liver panel in AM and abd sono Critically ill: Guarded prognosis Care to return to Dr Rueda at time of discharger from [facility]. 07/16/17 Acute hypoglycemia - Could be toxic effects of meth, does not have any insulin at home. Has not been eating well for at least 2 days due to nausea, vomiting and diarrhea Currently on D5 half normal saline at 50 mls per hour-dc and follow blood sugars Accu checks Q6 hours If he can be off BiPAP then we may try to feed him and titrate off the D5. Acute methamphetamine intoxication with agitation and encephalopathy -appears to be improving, still a bit agitated. Ativan PRN. Remove four- point restraints when he can be trusted not to take his BiPAP off Chronic systolic CHF from NICM - EKG looks unchanged, chest x-ray stable at this point Dr. Merchant consulted Resume Coreg. Holding MANI I due to MARGI VALARIE - requiring BiPAP to maintain saturations Will try to wean off to just oxygen during the day, he is chronically on 3L H/O aflutter Hold amiodarone for now due to elevated LFTs - In SR at present Hold Xarelto for now COPD - on chronic oxygen at home 3 L Nebulizers, titrate oxygen Dr. Rebolledo consulted Morbid obesity Acute Renal failure -will repeat labs this afternoon, poor urine output Hyperbilirubinemia and elevated liver enzymes - will repeat labs in follow, Bili trending down, AST/ALT trending up -Hepatitis panel pending -Hold amiodarone for now Possible acute/ recurrent cellulitis - history of MRSA Vancomycin started, pharm consult for dosing - Rocephin IV HLP - Holding statin due to elevated LFTs Possible acute severe sepsis (lactate > 2, cellulitis) Present on admit - Repeat lactate normal Will consult wound and skin Nystatin for groin folds 07/17/17 Blood sugars improved, encephalopathy improving but patient still very somnolent. Minimize benzodiazepines and narcotics. Last lorazepam yesterday am. Respiratory status improving - maintaining saturation on baseline 3L. Wearing BiPAP as directed. Renal status improve with creatinine decreasing to 1.8. Oral intake decreased. Not on IVF secondary to cardiomyopathy. On home maintenance furosemide. Lisinopril remains on hold. Liver enzymes gradually decreasing. Holding amiodarone and simvastatin. Will continue with vancomycin and ceftriaxone for antimicrobial coverage, WBC decreased to 11.8. Increase activities as somnolence improves. Continue with CCU care for close monitoring due to resolving encephalopathy. <Lee Merchant - Last Filed: 07/24/17 13:27> Exam Vital signs: Temperature 96.8 F 07/23/17 08:00 Pulse Rate 59 L 07/23/17 11:21 Respiratory Rate 18 07/23/17 11:21 Blood Pressure 136/81 07/23/17 11:21 Pulse Oximetry 94 07/23/17 12:25 Inpatient Medications: Discontinued Medications Generic Name Dose Route Start Last Admin Trade Name Freq PRN Reason Stop Dose Admin Acetazolamide 250 mg 07/21/17 09:00 07/22/17 10:13 Diamox 250 Mg PO 250 mg BID RICHARD Administration Acetazolamide 250 mg 07/23/17 09:00 07/23/17 08:15 Diamox 250 Mg PO 250 mg DAILY RICHARD Administration Albuterol/Ipratropium 3 ml 07/16/17 10:02 07/22/17 01:14 Duoneb AEROSOL 3 ml RTQID PRN Administration Amiodarone HCl 200 mg 07/16/17 12:00 07/16/17 14:36 Pacerone PO 200 mg DAILY RICHARD Administration Arformoterol Tartrate 15 mcg 07/16/17 12:00 07/23/17 06:52 Brovana Neb AEROSOL 15 mcg RTBID RICHARD Administration Bisacodyl 10 mg 07/18/17 17:02 Dulcolax RECTALLY DAILY PRN Constipation Budesonide 0.5 mg 07/16/17 12:00 07/23/17 08:07 Pulmicort Inhalation AEROSOL 0.5 mg RTBID RICHARD Administration Carvedilol 3.125 mg 07/16/17 17:30 07/17/17 09:07 Coreg PO 3.125 mg BIDWM RICHARD Administration Carvedilol 6.25 mg 07/17/17 17:30 07/20/17 09:03 Coreg PO 6.25 mg BIDWM RICHARD Administration Carvedilol 12.5 mg 07/20/17 17:30 07/22/17 10:14 Coreg PO 12.5 mg BIDWM RICHARD Administration Carvedilol 25 mg 07/22/17 12:15 Coreg PO BIDWM RICHARD Carvedilol 25 mg 07/22/17 12:30 07/23/17 08:15 Coreg PO 25 mg BIDWM RICHARD Administration Furosemide 40 mg 07/16/17 12:00 07/23/17 08:15 Lasix 40 Mg Tab PO 40 mg DAILY RICHARD Administration Gabapentin 300 mg 07/16/17 21:00 07/22/17 22:34 Neurontin PO 300 mg HS RICHARD Administration Gabapentin 200 mg 07/16/17 14:00 07/23/17 13:26 Neurontin PO 200 mg 0800,1400 RICHARD Administration Heparin Sodium (Porcine) 5,000 units 07/16/17 09:45 07/18/17 08:16 Heparin Sq SQ 5,000 units Q8HR RICHARD Administration Dextrose/Sodium Chloride 1,000 mls @ 250 mls/hr 07/15/17 18:30 07/16/17 04:50 Dextrose 5%-Normal Saline IV Not Given .Q4H RICHARD Dextrose/Sodium Chloride 1,000 mls @ 50 mls/hr 07/15/17 22:00 07/16/17 08:31 D5-1/2ns IV Infused .Q20H RICHARD Infusion Ceftriaxone Sodium 1 g/ Sodium 100 mls @ 200 mls/hr 07/15/17 22:19 07/16/17 01:04 Chloride IV 07/15/17 22:48 Infused O ONE Infusion Vancomycin HCl 2,000 mg/ 500 mls @ 250 mls/hr 07/16/17 07:10 07/16/17 10:38 Sodium Chloride IV 07/16/17 07:11 Infused O ONE Infusion Vancomycin HCl 1,000 mg/ 250 mls @ 250 mls/hr 07/16/17 08:56 Sodium Chloride IV 07/16/17 08:57 O ONE Ceftriaxone Sodium 1 g/ Sodium 100 mls @ 200 mls/hr 07/16/17 11:00 07/23/17 11:55 Chloride IV Infused Q24H RICHARD Infusion Vancomycin HCl 1,000 mg/ 250 mls @ 250 mls/hr 07/16/17 16:30 07/18/17 05:18 Sodium Chloride IV Infused Q12H RICHARD Infusion Vancomycin HCl 1,250 mg/ 250 mls @ 200 mls/hr 07/18/17 16:00 07/19/17 06:30 Sodium Chloride IV Infused Q12H RICHARD Infusion Insulin Aspart 1 - 5 unit 07/16/17 15:03 Novolog SQ SS PRN Hyperglycemia Protocol Lisinopril 2.5 mg 07/16/17 12:00 07/16/17 14:35 Prinivil PO 2.5 mg DAILY RICHARD Administration Lisinopril 2.5 mg 07/18/17 11:00 07/20/17 09:03 Prinivil PO 2.5 mg DAILY RICHARD Administration Lisinopril 5 mg 07/21/17 09:00 07/23/17 08:15 Prinivil PO 5 mg DAILY RICHARD Administration Lorazepam 2 mg 07/15/17 18:28 07/15/17 22:15 Ativan Inj IVP 07/15/17 18:29 2 mg O ONE Administration Lorazepam 0.5 mg 07/15/17 22:19 07/16/17 04:21 Ativan Inj IVP 0.5 mg Q4H PRN Administration Agitation/Restlessness Magnesium Hydroxide 30 ml 07/18/17 17:02 Mom PO DAILY PRN Constipation Metoclopramide HCl 5 mg 07/15/17 21:51 Reglan IVP Q6H PRN Morphine Sulfate 1 - 2 mg 07/15/17 21:51 Morphine Sulf 2 Mg Inj IVP Q2H PRN Pain Ondansetron HCl 4 mg 07/15/17 21:51 Zofran IVP Q6H PRN Nausea &/or vomiting Pantoprazole Sodium 40 mg 07/16/17 09:00 07/20/17 09:04 Protonix Iv IVP 40 mg DAILY RICHARD Administration Pantoprazole Sodium 40 mg 07/21/17 06:30 07/23/17 06:00 Protonix Tab PO 40 mg ACB RICHARD Administration Pharmacy Consult each 07/16/17 00:49 Pharmacy Consult - Fall Risk 07/16/17 00:50 ONE TIME ONE Rivaroxaban 20 mg 07/18/17 17:30 07/22/17 17:14 Xarelto PO 20 mg WS RICHARD Administration Sertraline HCl 50 mg 07/16/17 10:00 07/23/17 08:15 Zoloft PO 50 mg DAILY RICHARD Administration Sertraline HCl 50 mg 07/19/17 09:00 Zoloft PO DAILY RICHARD Simvastatin 20 mg 07/16/17 21:00 Zocor PO HS RICHARD Sodium Chloride 10 - 80 ml 07/15/17 18:28 07/16/17 10:43 Iv Flush IVF 40 ml PRN PRN Administration Flushing Sodium Chloride 10 - 80 ml 07/15/17 18:38 07/22/17 10:13 Iv Flush IVF 10 ml PRN PRN Administration Flushing Sodium Chloride 500 ml 07/17/17 03:45 07/17/17 04:14 Normal Saline IV 500 ml PRN PRN Administration Vancomycin HCl 1 each 07/16/17 06:22 07/16/17 08:31 Pharmacy Consult - Vancomycin 07/16/17 06:23 1 each O ONE Administration - Urinary Catheter Management Urethral Cath placed during this visit: no Results 07/23/17 03:53 07/23/17 03:53 Assessment and Plan - Assessment and Plan (1) Dilated cardiomyopathy Problem details: EF 10-15% with 3/4 diastolic dysfunction on 06/11/17 EF 30% on TTE done 10/2015; global hypokinesis and dilated LV; EF 55% 09/2016 Status: Chronic (2) Hypertension Problem details: Off all medications for > 6 months, uncontrolled Status: Chronic (3) COPD, severe Problem details: on 3L NC chronically at home Status: Chronic (4) Tobacco dependence syndrome Problem details: Ongoing, discussed cessation, unclear how much he is smoking routinely Status: Chronic (5) Congestive heart failure Problem details: Systolic Status: Acute (6) Methamphetamine intoxication Status: Acute (7) Methamphetamine substance use disorder, mild, in sustained remission, in controlled environment, abuse Status: Chronic (8) Hypoglycemia Status: Acute (9) Acute kidney injury Status: Acute (10) PAF (paroxysmal atrial fibrillation) Status: Chronic - Attestation Attestation Narrative: 07/24/17 13:27 Recommendation After examining the patient I agree with the above assessment. I am involved in the formulation of the patient's plan of care. Hospital Course Summary Disclaimer: The visit summary below is not to be considered part of the above Progress Note.
--- NOTE | 2017-07-18 11:12 | Pharmacy Consult-Antibiotics ---
Pharmacy Consult-Vancomycin - Laboratory Information WBC 7.1 T/MM3 (4.5-11.0) 07/18/17 04:16 BUN 33.0 MG/DL (9-20) H 07/18/17 04:16 Creatinine 1.1 mg/dL (0.8-1.5) D 07/18/17 04:16 Procalcitonin 0.56 NG/ML 07/15/17 23:06 Vancomycin Trough 14.85 ug/mL (15-20) L 07/18/17 04:16 - Consult Information Mr Antonio's renal function has vastly improved! Trough is close to normal range but levels will probably drop more now. Will increase vancomycin to 1250mg IV q12h and continue to monitor. Thank you.
[2017-07-18] MEDS: LISINOPRIL 2.5 MG TABLET PO SCH (11:35)
--- NOTE | 2017-07-18 14:35 | Progress Note ---
- Date 07/18/17 Subjective: Gray is seen today in follow up. He is napping with Bi-pap inplace. He appears to be comfortable without significant respiratory distress. Denies having pain during examination. Appetite continues to be good. Pals Nurse improved, LFTs trending down. Objective Vital signs: Temperature 96.2 F L 07/18/17 11:34 Pulse Rate 62 07/18/17 11:34 Respiratory Rate 16 07/18/17 11:34 Blood Pressure 129/86 07/18/17 11:34 Pulse Oximetry 96 07/18/17 12:00 Height/Weight/BMI: Height 1.83 m Weight 133.6 kg Body Mass Index 39.9 - Constitutional Present: no acute distress, well nourished, well developed - Routine HEENT Exam Eye: Present: EOMI ENT: Present: mucous membranes moist, dentition normal - Routine Respiratory Exam Present: wheezes (expiratory) - Routine Cardiovascular Exam Present: RRR, S1, S2. Absent: murmur - Routine Abdominal Exam Present: soft, normoactive bowel sounds, non distended. Absent: tenderness - Routine Extremities Exam Present: normal capillary refill - Routine Skin Exam Present: intact, dry, warm - Routine Neurological Exam Present: alert, oriented X3, CN II-XII intact - Routine Lymphatic Exam Lymphatic: Absent: adenopathy - Routine Psychiatric Exam Present: normal affect, cooperative Results - Labs CBC & Chem 7: 07/18/17 04:16 07/18/17 04:16 Microbiology Results: Microbiology 07/16/17 12:21 Peripheral/Iv Start Blood Culture - Preliminary No Growth After 2 Days 07/15/17 21:02 Peripheral/Iv Start Blood Culture - Preliminary No Growth After 2 Days Assessment and Plan (1) Metabolic encephalopathy Current visit: Yes Status: Acute (2) Methamphetamine intoxication Current visit: Yes Status: Acute (3) Hypoglycemia Current visit: Yes Status: Acute (4) Acute kidney injury Current visit: Yes Status: Acute (5) Dilated cardiomyopathy Problem details: EF 10-15% with 3/4 diastolic dysfunction on 06/11/17 EF 30% on TTE done 10/2015; global hypokinesis and dilated LV; EF 55% 09/2016 Current visit: No Status: Chronic (6) Hypertension Problem details: Off all medications for > 6 months, uncontrolled Current visit: No Status: Chronic (7) COPD, severe Problem details: on 3L NC chronically at home Current visit: No Status: Chronic (8) Tobacco dependence syndrome Problem details: Ongoing, discussed cessation, unclear how much he is smoking routinely Current visit: No Status: Chronic (9) Anxiety Problem details: Severe and chronic, untreated, exacerbated by dyspnea Current visit: No Status: Acute (10) Congestive heart failure Problem details: Systolic Current visit: No Status: Acute (11) Methamphetamine substance use disorder, mild, in sustained remission, in controlled environment, abuse Current visit: Yes Status: Chronic (12) Hypoglycemia Current visit: Yes Status: Acute Assessment and Plan: Assessment Toxic/Metabolic encephalopathy (POA) - secondary to hypoglycemia, meth, and CO2 narcosis Acute hypoglycemia (POA) - resolved Acute methamphetamine intoxication with agitation and encephalopathy (POA) Acute Kidney Injury (POA) Leukocytosis (POA) Elevated Lactate (POA) - likely secondary to cardiomyopathy Chronic systolic CHF from [facility] Chronic hypoxic/hypercapnic respiratory failure - Trilogy vent at home, 3L during day COPD - on chronic oxygen at home 3 L H/O aflutter Hyperbilirubinemia and elevated liver enzymes - likely passive congestion of liver with medication effect Possible acute/recurrent cellulitis of abdominal wall - history of MRSA HLP Stage III CKD Tinea of skin folds Depression/Anxiety Tobacco dependency Morbid obesity Plan Respiratory status improving -continues on baseline oxygen of 3 liters. Utilizing BiPAP with sleeping and napping. Creatinine continues to improve, today down to 1.1. With resuming low-dose lisinopril 2.5 milligrams daily. LFTs also continued to improve- amiodarone and simvastatin remain on hold. Continue with vancomycin and ceftriaxone for antimicrobial coverage of abdominal cellulitis. Consult placed for PT and OT to evaluate strength and function. Will check CBC and CMP tomorrow morning to follow blood counts, renal function and electrolytes. Consultations with Dr. Rebolledo and Dr. Merchant. Discussed case with attending, Dr. Medrano. DVT Prophylaxis: SQ Heparin Resuscitation Status: Full Code - Time spent with patient Time with patient PN: 25 minutes - Physician Narrative Physician: David Medrano MD Narrative: Date: 07/18/17 Time: 1645 Resting in bed with BiPAP. Eating well. Not been up-refused PT. No stools charted (reports diarrhea at home). Lungs: decreased CV: regular AB: soft nt/nd +BS Skin: erythema to ab wall resolved EXT: +2 edema Plan: Will continue with antibiotic therapy. Cardiology restarted lisinopril. Will restart Xarelto and stop SQ Heparin. Blood sugars showing improvement-can stop routine check. Stress the importance of moving and being active - reports too weak and tired to attempt activities. No drive or motivation. Hospital Course Summary Disclaimer: The visit summary below is not to be considered part of the above Progress Note. Hospital Course: 07/15/17 Admission - CCU Check ABG - concerned about R/O AMI w serial enzymes Ativan PRN and restraints for patient and staff safety IV Rocephin x 1 for abd wall cellulitis, start vanco in AM when better IV access myrtle, asked nursing to cassandra cellulitis w line Get off iv fluids fouzia with recent CHF issues Nebs PRN, no wheezing noted and minimal O2 requirements at this time Follow labs, check liver panel in AM and abd sono Critically ill: Guarded prognosis Care to return to Dr Rueda at time of [place] [facility] [place]/16/17 Acute hypoglycemia - Could be toxic effects of meth, does not have any insulin at home. Has not been eating well for at least 2 days due to nausea, vomiting and diarrhea Currently on D5 half normal saline at 50 mls per hour-dc and follow blood sugars Accu checks Q6 hours If he can be off BiPAP then we may try to feed him and titrate off the D5. Acute methamphetamine intoxication with agitation and encephalopathy -appears to be improving, still a bit agitated. Ativan PRN. Remove four- point restraints when he can be trusted not to take his BiPAP off Chronic systolic CHF from [facility] - EKG looks unchanged, chest x-ray stable at this point Dr. Merchant consulted Resume Coreg. Holding MANI I due to MARGI VALARIE - requiring BiPAP to maintain saturations Will try to wean off to just oxygen during the day, he is chronically on 3L H/O aflutter Hold amiodarone for now due to elevated LFTs - In SR at present Hold Xarelto for now COPD - on chronic oxygen at home 3 L Nebulizers, titrate oxygen Dr. Rebolledo consulted Morbid obesity Acute Renal failure -will repeat labs this afternoon, poor urine output Hyperbilirubinemia and elevated liver enzymes - will repeat labs in follow, Bili trending down, AST/ALT trending up -Hepatitis panel pending -Hold amiodarone for now Possible acute/ recurrent cellulitis - history of MRSA Vancomycin started, pharm consult for dosing - Rocephin IV HLP - Holding statin due to elevated LFTs Possible acute severe sepsis (lactate > 2, cellulitis) Present on admit - Repeat lactate normal Will consult wound and skin Nystatin for groin folds 07/17/17 Blood sugars improved, encephalopathy improving but patient still very somnolent. Minimize benzodiazepines and narcotics. Last lorazepam yesterday am. Respiratory status improving - maintaining saturation on baseline 3L. Wearing BiPAP as directed. Renal status improve with creatinine decreasing to 1.8. Oral intake decreased. Not on IVF secondary to cardiomyopathy. On home maintenance furosemide. Lisinopril remains on hold. Liver enzymes gradually decreasing. Holding amiodarone and simvastatin. Will continue with vancomycin and ceftriaxone for antimicrobial coverage, WBC decreased to 11.8. Increase activities as somnolence improves. Transfer to medical floor as encephalopathy decreasing. 07/18/17 Respiratory status improving -continues on baseline oxygen of 3 liters. Utilizing BiPAP with sleeping and napping. Creatinine continues to improve, today down to 1.1. With resuming low-dose lisinopril 2.5 milligrams daily LFTs also continued to improve- amiodarone and simvastatin remain on hold. Continue with vancomycin and ceftriaxone for antimicrobial coverage of abdominal skin. Will restart Xarelto and stop SQ Heparin. Consult placed for PT and OT to evaluate strength and function. Patient refuse to work with therapy today. States "I'm too weak. I can't even roll over." Stress the importance on working to increase strength and activities. Blood sugars showing improvement-can stop routine check. Consultations with Dr. Rebolledo and Dr. Merchant.
[2017-07-18] MEDS ORDERED: BISACODYL 10 MG SUPPOSITORY RECTALLY PRN (17:02)
[2017-07-18] MEDS: RIVAROXABAN 20 MG TABLET PO SCH (17:18)
[2017-07-18] MEDS: GABAPENTIN 300 MG CAPSULE PO SCH (20:16)
[2017-07-19] MEDS: SERTRALINE 50 MG TABLET PO SCH (08:57)
[2017-07-19] MEDS: PANTOPRAZOLE 40 MG INJECTION IVP SCH (08:57)
[2017-07-19] MEDS: CARVEDILOL 6.25 MG TABLET PO SCH ×2 (08:57→17:27)
[2017-07-19] MEDS: GABAPENTIN 100 MG CAPSULE PO SCH ×2 (08:57→14:08)
[2017-07-19] MEDS: FUROSEMIDE 40 MG TABLET PO SCH (08:58)
[2017-07-19] MEDS ORDERED: SERTRALINE 50 MG TABLET PO SCH (09:00)
[2017-07-19] MEDS: LISINOPRIL 2.5 MG TABLET PO SCH (09:06)
[2017-07-19] MEDS: ARFORMOTEROL NEB 15mcg/2ml AEROSOL SCH ×2 (09:48→22:22)
[2017-07-19] MEDS: BUDESONIDE INH.SOLN 0.5mg/2ml NEB AEROSOL SCH ×2 (09:48→22:23)
--- NOTE | 2017-07-19 10:54 | Progress Note ---
- Date 07/19/17 Subjective: Patient seen in follow-up of toxic/metabolic encephalopathy secondary to hypoglycemia, meth, and CO2 narcosis. He is resting in bed with Bipap during visit. Requests to take off the Bipap. States he hasn't had a BM because he hasn't been up due to the catheter and won't use bedpan. No CP, SOA, abd pain, nausea or vomiting. C/o being tired. Objective Vital signs: Temperature 96.5 F L 07/19/17 09:51 Pulse Rate 76 07/19/17 09:51 Respiratory Rate 20 07/19/17 09:51 Blood Pressure 145/112 H 07/19/17 09:51 Pulse Oximetry 97 07/19/17 09:51 Height/Weight/BMI: Height 1.83 m Weight 133.2 kg Body Mass Index 39.9 - Constitutional Present: no acute distress, well nourished, well developed, obese - Routine HEENT Exam Head: Present: normocephalic, atraumatic - Routine Respiratory Exam Present: decreased breath sounds, wheezes (slight exp wheeze) - Routine Cardiovascular Exam Present: RRR, no murmur - Routine Abdominal Exam Present: soft, non distended, non tender - Routine Extremities Exam Present: no edema, normal capillary refill - Routine Skin Exam Present: dry, warm - Routine Neurological Exam Present: alert - Routine Lymphatic Exam Lymphatic: Absent: adenopathy - Routine Psychiatric Exam Present: normal affect, cooperative Results - Labs CBC & Chem 7: 07/19/17 04:26 07/19/17 04:26 Microbiology Results: Microbiology 07/15/17 21:02 Peripheral/Iv Start Blood Culture - Preliminary No Growth After 3 Days 07/16/17 12:21 Peripheral/Iv Start Blood Culture - Preliminary No Growth After 2 Days Assessment and Plan (1) Metabolic encephalopathy Current visit: Yes Status: Acute (2) Hypoglycemia Current visit: Yes Status: Acute (3) Methamphetamine intoxication Current visit: Yes Status: Acute (4) Dilated cardiomyopathy Problem details: EF 10-15% with 3/4 diastolic dysfunction on 06/11/17 EF 30% on TTE done 10/2015; global hypokinesis and dilated LV; EF 55% 09/2016 Current visit: No Status: Chronic (5) Hypertension Problem details: Off all medications for > 6 months, uncontrolled Current visit: No Status: Chronic (6) COPD, severe Problem details: on 3L NC chronically at home Current visit: No Status: Chronic (7) Tobacco dependence syndrome Problem details: Ongoing, discussed cessation, unclear how much he is smoking routinely Current visit: No Status: Chronic (8) Anxiety Problem details: Severe and chronic, untreated, exacerbated by dyspnea Current visit: No Status: Acute (9) Congestive heart failure Problem details: Systolic Current visit: No Status: Acute (10) Methamphetamine substance use disorder, mild, in sustained remission, in controlled environment, abuse Current visit: Yes Status: Chronic (11) Hypoglycemia Current visit: Yes Status: Acute (12) Acute kidney injury Current visit: Yes Status: Acute Assessment and Plan: Assessment Toxic/Metabolic encephalopathy (POA) - secondary to hypoglycemia, meth, and CO2 narcosis Acute hypoglycemia (POA) - resolved Acute methamphetamine intoxication with agitation and encephalopathy (POA) Acute Kidney Injury (POA) Leukocytosis (POA) Elevated Lactate (POA) - likely secondary to cardiomyopathy Chronic systolic CHF from [facility] Chronic hypoxic/hypercapnic respiratory failure - Trilogy vent at home, 3L during day COPD - on chronic oxygen at home 3 L H/O aflutter Hyperbilirubinemia and elevated liver enzymes - likely passive congestion of liver with medication effect Possible acute/recurrent cellulitis of abdominal wall - history of MRSA HLP Stage III CKD Tinea of skin folds Depression/Anxiety Tobacco dependency Morbid obesity Plan Creatinine continues to improve 1.1-->0.8 LFTs also continue to improve-amiodarone and simvastatin remain on hold. Will have cardiology restart when they feel appropriate. Xarelto resumed yesterday. care technician reports few episodes of Vtach overnight and this am. Cardiology following. Encouraged pt to work with therapy today despite his overwhelming fatigue. Pulmonology following - cont home trilogy at [facility], nebulizers. Leukocytosis resolved. Will evaluate his cellulitis when nursing is bathing pt to determine if he needs to continue with vancomycin and ceftriaxone for antimicrobial coverage of abdominal cellulitis. DVT Prophylaxis: Eliquis Resuscitation Status: Full Code - Time spent with patient Time with patient PN: 25 minutes - Physician Narrative Physician: David Medrano MD Narrative: Date: 07/19/17 Time: 1625 Have independently interviewed & examined pt. Chart reviewed. Case discussed with CM & my PA. Care plan developed with my supervision; agree with above. Resting in bed on BiPAP. Will awaken to verbal stimuli. Breathing feeling okay- not feeling SOA or having cough/congestion. No pain with breathing. Appetite stable. No ab pain. Reports had bowel movement today. Abdalla removed, feels he is urinating okay. Not up much. Lungs: decreased bilaterally, no crackles or wheezes. CV: distant, regular AB : soft obese nt MSE: converses with short phrases. Make poor eye contact. Plan: Can stop Vancomycin, will continue Rocephin. Lab and resp status improving. Will d/c Abdalla. Stressed to patient the importance of being up more and being mobile. Needs for acute hospitalization are decreasing-worry pt will be too debilitated to return home when that time comes. Discuss with patient about working with therapy when they come by and not refusing. Stressed need to be up and more mobile. If patient unwilling or unable to do these activities, likelihood for returning home is low. Discussed about potential for alf care if not able to be more active and mobile. Pt reports he will work on this. Hospital Course Summary Disclaimer: The visit summary below is not to be considered part of the above Progress Note. Hospital Course: 07/15/17 Admission - CCU Check ABG R/O AMI w serial enzymes Ativan PRN and restraints for patient and staff safety IV Rocephin x 1 for abd wall cellulitis, start vanco in AM when better IV access avaialbe, asked nursing to cassandra cellulitis w line Get off iv fluids fouzia with recent CHF issues Nebs PRN, no wheezing noted and minimal O2 requirements at this time Follow labs, check liver panel in AM and abd sono Critically ill: Guarded prognosis Care to return to Dr Rueda at time of discharger from [facility] [place]. 07/16/17 Acute hypoglycemia - Could be toxic effects of meth, does not have any insulin at home. Currently on D5 half normal saline at 50 mls per hour-dc and follow blood sugars Acute methamphetamine intoxication with agitation and encephalopathy -appears to be improving, still a bit agitated. Ativan PRN. Remove four- point restraints when he can be trusted not to take his BiPAP off Chronic systolic CHF from [facility] - EKG looks unchanged, chest x-ray stable at this point Dr. Merchant consulted Resume Coreg. Holding MANI I due to [facility]GI [facility]ARIE - requiring BiPAP to maintain saturations H/O aflutter Hold amiodarone for now due to elevated LFTs - In SR at present Hold Xarelto for now COPD - on chronic oxygen at home [address] Rebolledo consulted Morbid obesity Acute Renal failure -will repeat labs this afternoon, poor urine output Hyperbilirubinemia and elevated liver enzymes - will repeat labs in follow, Bili trending down, AST/ALT trending up -Hepatitis panel pending -Hold amiodarone for now Possible acute/ recurrent cellulitis - history of MRSA Vancomycin started, pharm consult for dosing - Rocephin IV HLP - Holding statin due to elevated LFTs Possible acute severe sepsis (lactate > 2, cellulitis) Present on admit - Repeat lactate normal Will consult wound and skin Nystatin for groin folds 07/17/17 Blood sugars improved, encephalopathy improving but patient still very somnolent. Minimize benzodiazepines and narcotics. Last lorazepam yesterday am. Respiratory status improving - maintaining saturation on baseline 3L. Wearing BiPAP as directed. Renal status improve with creatinine decreasing to 1.8. Oral intake decreased. Not on IVF secondary to cardiomyopathy. On home maintenance furosemide. Lisinopril remains on hold. Liver enzymes gradually decreasing. Holding amiodarone and simvastatin. Will continue with vancomycin and ceftriaxone for antimicrobial coverage, WBC decreased to 11.8. Increase activities as somnolence improves. Transfer to medical floor as encephalopathy decreasing. 07/18/17 Respiratory status improving -continues on baseline oxygen of 3 liters. Utilizing BiPAP with sleeping and napping. Creatinine continues to improve, today down to 1.1. With resuming low-dose lisinopril 2.5 milligrams daily LFTs also continued to improve- amiodarone and simvastatin remain on hold. Continue with vancomycin and ceftriaxone for antimicrobial coverage of abdominal skin. Will restart Xarelto and stop SQ Heparin. Consult placed for PT and OT to evaluate strength and function. Patient refuse to work with therapy today. States "I'm too weak. I can't even roll over." Consultations with Dr. Rebolledo and Dr. Merchant. 07/19/17 Creatinine continues to improve 1.1-->0.8. LFTs also continue to improve-amiodarone and simvastatin remain on hold. Will have cardiology restart when they feel appropriate. care technician reports few episodes of Vtach overnight and this am. Cardiology following. Pulmonology following - cont home trilogy at [facility], nebulizers. Pt sats mostly >95 % on 3L - wean as able keeping sats >90% Leukocytosis resolved. Ab wall cellulitis improving - will continue ceftriaxone but can stop Vancomycin. Encouraged pt to work with therapy today despite his overwhelming fatigue. Stressed to patient the importance of being up more and being mobile. Needs for acute hospitalization are decreasing-worry pt will be too debilitated to return home when that time comes. Discuss with patient about working with therapy when they come by and not refusing. Stressed need to be up and more mobile. If patient unwilling or unable to do these activities, likelihood for returning home is low. Discussed about potential for alf care if not able to be more active and mobile. Pt reports he will work on this. Addendum entered and electronically signed by JASSI Go 07/19/17 12:08 : Minimal erythema to abd and legs showing significant improvement in cellulitis. CHRISTEL vanc.
[2017-07-19] MEDS: CEFTRIAXONE 1 G in NS 100 ML IV SCH (11:34)
[2017-07-19] MEDS: RIVAROXABAN 20 MG TABLET PO SCH (17:29)
--- NOTE | 2017-07-19 19:06 | Cardiology Progress Note ---
<Caryl Salas M - Last Filed: 07/20/17 10:38> Subjective Principal diagnosis: CM, CHF Interval history: Gray is seen in follow up for CM and CHF. Gray is seen in his room on the Medical unit, he remains on 3L/NC in no acute distress. He denies chest pain or palpitations. Exam Vital signs: Temperature 95.5 F L 07/19/17 15:58 Pulse Rate 65 07/19/17 16:00 Respiratory Rate 20 07/19/17 15:58 Blood Pressure 142/92 H 07/19/17 15:58 Pulse Oximetry 94 07/19/17 18:58 Inpatient Medications: Generic Name Dose Route Start Last Admin Trade Name Freq PRN Reason Stop Dose Admin Albuterol/Ipratropium 3 ml 07/16/17 10:02 07/17/17 15:22 Duoneb AEROSOL 3 ml RTQID PRN Administration Arformoterol Tartrate 15 mcg 07/16/17 12:00 07/19/17 09:48 Brovana Neb AEROSOL 15 mcg RTBID RICHARD Administration Bisacodyl 10 mg 07/18/17 17:02 Dulcolax RECTALLY DAILY PRN Constipation Budesonide 0.5 mg 07/16/17 12:00 07/19/17 09:48 Pulmicort Inhalation AEROSOL 0.5 mg RTBID RICHARD Administration Carvedilol 6.25 mg 07/17/17 17:30 07/19/17 17:27 Coreg PO 6.25 mg BIDWM RICHARD Administration Furosemide 40 mg 07/16/17 12:00 07/19/17 08:58 Lasix 40 Mg Tab PO 40 mg DAILY RICHARD Administration Gabapentin 300 mg 07/16/17 21:00 07/18/17 20:16 Neurontin PO 300 mg HS RICHARD Administration Gabapentin 200 mg 07/16/17 14:00 07/19/17 14:08 Neurontin PO 200 mg 0800,1400 RICHARD Administration Ceftriaxone Sodium 1 g/ Sodium 100 mls @ 200 mls/hr 07/16/17 11:00 07/19/17 12:04 Chloride IV Infused Q24H RICHARD Infusion Insulin Aspart 1 - 5 unit 07/16/17 15:03 Novolog SQ SS PRN Hyperglycemia Protocol Lisinopril 2.5 mg 07/18/17 11:00 05/10/18 09:06 Prinivil PO 2.5 mg DAILY RICHARD Administration Lorazepam 0.5 mg 07/15/17 22:19 07/16/17 04:21 Ativan Inj IVP 0.5 mg Q4H PRN Administration Agitation/Restlessness Magnesium Hydroxide 30 ml 07/18/17 17:02 Mom PO DAILY PRN Constipation Ondansetron HCl 4 mg 07/15/17 21:51 Zofran IVP Q6H PRN Nausea &/or vomiting Pantoprazole Sodium 40 mg 07/16/17 09:00 07/19/17 08:57 Protonix Iv IVP 40 mg DAILY RICHARD Administration Rivaroxaban 20 mg 07/18/17 17:30 07/19/17 17:29 Xarelto PO 20 mg WS RICHARD Administration Sertraline HCl 50 mg 07/16/17 10:00 07/19/17 08:57 Zoloft PO 50 mg DAILY RICHARD Administration Sodium Chloride 10 - 80 ml 07/15/17 18:38 07/18/17 15:26 Iv Flush IVF 10 ml PRN PRN Administration Flushing Sodium Chloride 500 ml 07/17/17 03:45 07/17/17 04:14 Normal Saline IV 500 ml PRN PRN Administration Discontinued Medications Generic Name Dose Route Start Last Admin Trade Name Freq PRN Reason Stop Dose Admin Amiodarone HCl 200 mg 07/16/17 12:00 07/16/17 14:36 Pacerone PO 200 mg DAILY RICHARD Administration Carvedilol 3.125 mg 07/16/17 17:30 07/17/17 09:07 Coreg PO 3.125 mg BIDWM RICHARD Administration Heparin Sodium (Porcine) 5,000 units 07/16/17 09:45 07/18/17 08:16 Heparin Sq SQ 5,000 units Q8HR RICHARD Administration Dextrose/Sodium Chloride 1,000 mls @ 250 mls/hr 07/15/17 18:30 07/16/17 04:50 Dextrose 5%-Normal Saline IV Not Given .Q4H RICHARD Dextrose/Sodium Chloride 1,000 mls @ 50 mls/hr 07/15/17 22:00 07/16/17 08:31 D5-1/2ns IV Infused .Q20H RICHARD Infusion Ceftriaxone Sodium 1 g/ Sodium 100 mls @ 200 mls/hr 07/15/17 22:19 07/16/17 01:04 Chloride IV 05/06/18 22:48 Infused O ONE Infusion Vancomycin HCl 2,000 mg/ 500 mls @ 250 mls/hr 07/16/17 07:10 07/16/17 10:38 Sodium Chloride IV 07/16/17 07:11 Infused O ONE Infusion Vancomycin HCl 1,000 mg/ 250 mls @ 250 mls/hr 07/16/17 08:56 Sodium Chloride IV 07/16/17 08:57 O ONE Vancomycin HCl 1,000 mg/ 250 mls @ 250 mls/hr 07/16/17 16:30 07/18/17 05:18 Sodium Chloride IV Infused Q12H RICHARD Infusion Vancomycin HCl 1,250 mg/ 250 mls @ 200 mls/hr 07/18/17 16:00 07/19/17 06:30 Sodium Chloride IV Infused Q12H RICHARD Infusion Lisinopril 2.5 mg 07/16/17 12:00 07/16/17 14:35 Prinivil PO 2.5 mg DAILY RICHARD Administration Lorazepam 2 mg 07/15/17 18:28 07/15/17 22:15 Ativan Inj IVP 07/15/17 18:29 2 mg O ONE Administration Metoclopramide HCl 5 mg 07/15/17 21:51 Reglan IVP Q6H PRN Morphine Sulfate 1 - 2 mg 07/15/17 21:51 Morphine Sulf 2 Mg Inj IVP Q2H PRN Pain Pharmacy Consult each 07/16/17 00:49 Pharmacy Consult - Fall Risk 07/16/17 00:50 ONE TIME ONE Sertraline HCl 50 mg 07/19/17 09:00 Zoloft PO DAILY RICHARD Simvastatin 20 mg 07/16/17 21:00 Zocor PO HS RICHARD Sodium Chloride 10 - 80 ml 07/15/17 18:28 07/16/17 10:43 Iv Flush IVF 40 ml PRN PRN Administration Flushing Vancomycin HCl 1 each 07/16/17 06:22 07/16/17 08:31 Pharmacy Consult - Vancomycin 07/16/17 06:23 1 each O ONE Administration - Constitutional no acute distress, morbidly obese - Routine HEENT Exam Head: Present: normocephalic ENT: Present: mucous membranes dry - Routine Neck Exam Absent: JVD, carotid bruit - Routine Chest/Breast/Axilla Exam Chest wall: Absent: tenderness - Routine Respiratory Exam Present: decreased breath sounds, wheezes. Absent: CTA bilaterally - Routine Cardiovascular Exam Present: RRR, no murmur - Routine Abdominal Exam Present: soft, non tender - Routine Extremities Exam Present: no edema - Routine Skin Exam Present: intact, dry, warm - Routine Neurological Exam Present: alert, oriented X3 - Routine Psychiatric Exam Present: normal affect - Urinary Catheter Management Urethral Cath placed during this visit: yes, but has since been removed by the nurse Insertion date: 07/15/17 Insertion time: 22:45 Removal date: 07/19/17 Removal time: 11:30 Results 07/20/17 04:42 07/20/17 04:42 Cardiac Enzymes 07/19/17 Range/Units 04:26 AST 240 H (17-59) U/L CBC 07/19/17 Range/Units 04:26 WBC 7.3 (4.5-11.0) T/MM3 RBC 4.31 L (4.50-5.90) M/MM3 Hgb 11.9 L (13.5-17.5) GM/DL Hct 39.7 L (41-53) % Plt Count 115 L (130-400) T/MM3 Neut # (Auto) 5.4 (1.8-7.7) T/MM3 Lymph # (Auto) 1.0 (1-4.8) T/MM3 Miner # (Auto) 0.8 (0-0.8) T/MM3 Eos # (Auto) 0.1 (0-0.5) T/MM3 Baso # (Auto) 0.0 (0-0.2) T/MM3 Comprehensive Metabolic Panel 07/19/17 Range/Units 04:26 Sodium 143 (134-144) MEQ/L Potassium 4.1 (3.6-5) MEQ/L Chloride 98 (98-107) MEQ/L Carbon Dioxide 38 H (22-30) MEQ/L BUN 23.0 H (9-20) MG/DL Creatinine 0.8 D (0.8-1.5) mg/dL Glucose 108 (75-110) MG/DL Calcium 8.4 (8.4-10.2) MG/DL AST 240 H (17-59) U/L ALT 301 H (1-50) U/L Alkaline Phosphatase 108 (38-126) U/L Total Protein 6.5 (6.3-8.2) g/dL Albumin 3.4 L (3.5-5.0) g/dL Intake and Output 07/19/17 07/19/17 07/19/17 06:59 14:59 22:59 Intake Total 841 / 841 640 / 640 Output Total 675 / 675 950 / 950 600 / 600 Balance 166 / 166 -310 / -310 -600 / -600 Intake: IV 250 / 250 100 / 100 Ceftriaxone 1 g In Ns 100 ml @ 100 / 100 200 mls/hr IV Q24H RICHARD Rx#: [id number] Vancomycin 1,250 mg In NS 250ml 250 / 250 250 ml @ 200 mls/hr IV Q12H RICHARD Rx#:[id number] Oral 591 / 591 540 / 540 Output: Urine Amount (Catheter) 675 / 675 950 / 950 600 / 600 Other: Urine Appearance Cloudy Urine Color Dark Lolis Dark Yellow Dark Yellow Weight 293 lb 10.491 oz Patient Weight 07/20/17 06:59 Weight 293 lb 10.491 oz Assessment and Plan - Assessment and Plan (1) Methamphetamine intoxication Status: Acute (2) Hypoglycemia Status: Acute (3) Congestive heart failure Problem details: Systolic Status: Acute (4) Acute kidney injury Status: Acute (5) Methamphetamine substance use disorder, mild, in sustained remission, in controlled environment, abuse Status: Chronic (6) Dilated cardiomyopathy Problem details: EF 10-15% with 3/4 diastolic dysfunction on 06/11/17 EF 30% on TTE done 10/2015; global hypokinesis and dilated LV; EF 55% 09/2016 Status: Chronic (7) Hypertension Problem details: Off all medications for > 6 months, uncontrolled Status: Chronic (8) COPD, severe Problem details: on 3L NC chronically at home Status: Chronic (9) Tobacco dependence syndrome Problem details: Ongoing, discussed cessation, unclear how much he is smoking routinely Status: Chronic (10) PAF (paroxysmal atrial fibrillation) Status: Chronic - Assessment and Plan 07/16/17 Meth intoxication: Found unresponsive by friends who reported Meth use to EMS - UDS positive for amphetamines and methamphetamines - Patient denied use Hypoglycemia: EMS documented BG of 25 - No insulin found with his other medications Systolic CHF: Acute on chronic - BNP 8550 - Diuresis with Lasix 40mg daily MARGI: BUN/ SCr 43/ 2.4 on admission - Hold Lisinopril Dilated CM: Discharged last hospitalization with LifeVest on - Patient not wearing Life Vest - Continue low dose Coreg as tolerated when able to swallow PO HTN: Hold Lisinopril until renal function improves to baseline Meth abuse COPD Tobacco dependence Thank you for letting us participate in the care of this patient, we will follow along with you. 07/17/17 Alert today, denies complaints - Increase Coreg to 6.25mg BID MARGI: improving, BUN 51/ SCr 1.8 today 07/18/17 PAF: Afib with Aberrancy seen on telemetry - Continue to hold Amiodarone for now due to LFTs, slowly improving. - AST 1169 ->663 ->374, ALT 548 -> 458 -> 366 - Need to consider restarting Xarelto Vs. Coumadin for chronic anticoagulation for PAF MARGI: BUN 33/SCr 1.1 today - Resume low dose Lisinopril 07/19/17 Continues to have runs of aberrant A Fib. - Resume Amiodarone when LFTs normalize - Xarelto restarted yesterday evening Hospital Course Summary Disclaimer: The visit summary below is not to be considered part of the above Progress Note. Hospital Course: 07/15/17 Admission - CCU Check ABG R/O AMI w serial enzymes Ativan PRN and restraints for patient and staff safety IV Rocephin x 1 for abd wall cellulitis, start vanco in AM when better IV access avaialbe, asked nursing to cassandra cellulitis w line Get off iv fluids fouzia with recent CHF issues Nebs PRN, no wheezing noted and minimal O2 requirements at this time Follow labs, check liver panel in AM and abd sono Critically ill: Guarded prognosis Care to return to Dr Rueda at time of discharger from [facility] [place]. 07/16/17 Acute hypoglycemia - Could be toxic effects of meth, does not have any insulin at home. Currently on D5 half normal saline at 50 mls per hour-dc and follow blood sugars Acute methamphetamine intoxication with agitation and encephalopathy -appears to be improving, still a bit agitated. Ativan PRN. Remove four- point restraints when he can be trusted not to take his BiPAP off Chronic systolic CHF from NICM - EKG looks unchanged, chest x-ray stable at this point Dr. Merchant consulted Resume Coreg. Holding MANI I due to MARGI VALARIE - requiring BiPAP to maintain saturations H/O aflutter Hold amiodarone for now due to elevated LFTs - In SR at present Hold Xarelto for now COPD - on chronic oxygen at home [address] Rebolledo consulted Morbid obesity Acute Renal failure -will repeat labs this afternoon, poor urine output Hyperbilirubinemia and elevated liver enzymes - will repeat labs in follow, Bili trending down, AST/ALT trending up -Hepatitis panel pending -Hold amiodarone for now Possible acute/ recurrent cellulitis - history of MRSA Vancomycin started, pharm consult for dosing - Rocephin IV HLP - Holding statin due to elevated LFTs Possible acute severe sepsis (lactate > 2, cellulitis) Present on admit - Repeat lactate normal Will consult wound and skin Nystatin for groin folds 07/17/17 Blood sugars improved, encephalopathy improving but patient still very somnolent. Minimize benzodiazepines and narcotics. Last lorazepam yesterday am. Respiratory status improving - maintaining saturation on baseline 3L. Wearing BiPAP as directed. Renal status improve with creatinine decreasing to 1.8. Oral intake decreased. Not on IVF secondary to cardiomyopathy. On home maintenance furosemide. Lisinopril remains on hold. Liver enzymes gradually decreasing. Holding amiodarone and simvastatin. Will continue with vancomycin and ceftriaxone for antimicrobial coverage, WBC decreased to 11.8. Increase activities as somnolence improves. Transfer to medical floor as encephalopathy decreasing. 07/18/17 Respiratory status improving -continues on baseline oxygen of 3 liters. Utilizing BiPAP with sleeping and napping. Creatinine continues to improve, today down to 1.1. With resuming low-dose lisinopril 2.5 milligrams daily LFTs also continued to improve- amiodarone and simvastatin remain on hold. Continue with vancomycin and ceftriaxone for antimicrobial coverage of abdominal skin. Will restart Xarelto and stop SQ Heparin. Consult placed for PT and OT to evaluate strength and function. Patient refuse to work with therapy today. States "I'm too weak. I can't even roll over." Consultations with Dr. Rebolledo and Dr. Merchant. 07/19/17 Creatinine continues to improve 1.1-->0.8. LFTs also continue to improve-amiodarone and simvastatin remain on hold. Will have cardiology restart when they feel appropriate. technical communicator reports few episodes of Vtach overnight and this am. Cardiology following. Pulmonology following - cont home trilogy at [facility], nebulizers. Pt sats mostly >95 % on 3L - wean as able keeping sats >90% Leukocytosis resolved. Ab wall cellulitis improving - will continue ceftriaxone but can stop Vancomycin. Encouraged pt to work with therapy today despite his overwhelming fatigue. Stressed to patient the importance of being up more and being mobile. Needs for acute hospitalization are decreasing-worry pt will be too debilitated to return home when that time comes. Discuss with patient about working with therapy when they come by and not refusing. Stressed need to be up and more mobile. If patient unwilling or unable to do these activities, likelihood for returning home is low. Discussed about potential for intermediate care if not able to be more active and mobile. Pt reports he will work on this. <Lee Merchant - Last Filed: 07/26/17 15:03> Exam Vital signs: Temperature 96.8 F 07/23/17 08:00 Pulse Rate 59 L 07/23/17 11:21 Respiratory Rate 18 07/23/17 11:21 Blood Pressure 136/81 07/23/17 11:21 Pulse Oximetry 94 07/23/17 12:25 Inpatient Medications: Discontinued Medications Generic Name Dose Route Start Last Admin Trade Name Freq PRN Reason Stop Dose Admin Acetazolamide 250 mg 07/21/17 09:00 07/22/17 10:13 Diamox 250 Mg PO 250 mg BID RICHARD Administration Acetazolamide 250 mg 07/23/17 09:00 07/23/17 08:15 Diamox 250 Mg PO 250 mg DAILY RICHARD Administration Albuterol/Ipratropium 3 ml 07/16/17 10:02 07/22/17 01:14 Duoneb AEROSOL 3 ml RTQID PRN Administration Amiodarone HCl 200 mg 07/16/17 12:00 07/16/17 14:36 Pacerone PO 200 mg DAILY RICHARD Administration Arformoterol Tartrate 15 mcg 07/16/17 12:00 07/23/17 06:52 Brovana Neb AEROSOL 15 mcg RTBID RICHARD Administration Bisacodyl 10 mg 07/18/17 17:02 Dulcolax RECTALLY DAILY PRN Constipation Budesonide 0.5 mg 07/16/17 12:00 07/23/17 08:07 Pulmicort Inhalation AEROSOL 0.5 mg RTBID RICHARD Administration Carvedilol 3.125 mg 07/16/17 17:30 07/17/17 09:07 Coreg PO 3.125 mg BIDWM RICHARD Administration Carvedilol 6.25 mg 07/17/17 17:30 07/20/17 09:03 Coreg PO 6.25 mg BIDWM RICHARD Administration Carvedilol 12.5 mg 07/20/17 17:30 07/22/17 10:14 Coreg PO 12.5 mg BIDWM RICHARD Administration Carvedilol 25 mg 07/22/17 12:15 Coreg PO BIDWM RICHARD Carvedilol 25 mg 07/22/17 12:30 07/23/17 08:15 Coreg PO 25 mg BIDWM RICHARD Administration Furosemide 40 mg 07/16/17 12:00 07/23/17 08:15 Lasix 40 Mg Tab PO 40 mg DAILY RICHARD Administration Gabapentin 300 mg 07/16/17 21:00 07/22/17 22:34 Neurontin PO 300 mg HS RICHARD Administration Gabapentin 200 mg 07/16/17 14:00 07/23/17 13:26 Neurontin PO 200 mg 0800,1400 RICHARD Administration Heparin Sodium (Porcine) 5,000 units 07/16/17 09:45 07/18/17 08:16 Heparin Sq SQ 5,000 units Q8HR RICHARD Administration Dextrose/Sodium Chloride 1,000 mls @ 250 mls/hr 07/15/17 18:30 07/16/17 04:50 Dextrose 5%-Normal Saline IV Not Given .Q4H RICHARD Dextrose/Sodium Chloride 1,000 mls @ 50 mls/hr 07/15/17 22:00 07/16/17 08:31 D5-1/2ns IV Infused .Q20H RICHARD Infusion Ceftriaxone Sodium 1 g/ Sodium 100 mls @ 200 mls/hr 07/15/17 22:19 07/16/17 01:04 Chloride IV 07/15/17 22:48 Infused O ONE Infusion Vancomycin HCl 2,000 mg/ 500 mls @ 250 mls/hr 07/16/17 07:10 07/16/17 10:38 Sodium Chloride IV 07/16/17 07:11 Infused O ONE Infusion Vancomycin HCl 1,000 mg/ 250 mls @ 250 mls/hr 07/16/17 08:56 Sodium Chloride IV 07/16/17 08:57 O ONE Ceftriaxone Sodium 1 g/ Sodium 100 mls @ 200 mls/hr 07/16/17 11:00 07/23/17 11:55 Chloride IV Infused Q24H RICHARD Infusion Vancomycin HCl 1,000 mg/ 250 mls @ 250 mls/hr 07/16/17 16:30 07/18/17 05:18 Sodium Chloride IV Infused Q12H RICHARD Infusion Vancomycin HCl 1,250 mg/ 250 mls @ 200 mls/hr 07/18/17 16:00 07/19/17 06:30 Sodium Chloride IV Infused Q12H RICHARD Infusion Insulin Aspart 1 - 5 unit 07/16/17 15:03 Novolog SQ SS PRN Hyperglycemia Protocol Lisinopril 2.5 mg 07/16/17 12:00 07/16/17 14:35 Prinivil PO 2.5 mg DAILY RICHARD Administration Lisinopril 2.5 mg 07/18/17 11:00 07/20/17 09:03 Prinivil PO 2.5 mg DAILY RICHARD Administration Lisinopril 5 mg 07/21/17 09:00 07/23/17 08:15 Prinivil PO 5 mg DAILY RICHARD Administration Lorazepam 2 mg 07/15/17 18:28 07/15/17 22:15 Ativan Inj IVP 07/15/17 18:29 2 mg O ONE Administration Lorazepam 0.5 mg 07/15/17 22:19 07/16/17 04:21 Ativan Inj IVP 0.5 mg Q4H PRN Administration Agitation/Restlessness Magnesium Hydroxide 30 ml 07/18/17 17:02 Mom PO DAILY PRN Constipation Metoclopramide HCl 5 mg 07/15/17 21:51 Reglan IVP Q6H PRN Morphine Sulfate 1 - 2 mg 07/15/17 21:51 Morphine Sulf 2 Mg Inj IVP Q2H PRN Pain Ondansetron HCl 4 mg 07/15/17 21:51 Zofran IVP Q6H PRN Nausea &/or vomiting Pantoprazole Sodium 40 mg 07/16/17 09:00 07/20/17 09:04 Protonix Iv IVP 40 mg DAILY RICHARD Administration Pantoprazole Sodium 40 mg 07/21/17 06:30 07/23/17 06:00 Protonix Tab PO 40 mg ACB RICHARD Administration Pharmacy Consult each 07/16/17 00:49 Pharmacy Consult - Fall Risk 07/16/17 00:50 ONE TIME ONE Rivaroxaban 20 mg 07/18/17 17:30 07/22/17 17:14 Xarelto PO 20 mg WS RICHARD Administration Sertraline HCl 50 mg 07/16/17 10:00 07/23/17 08:15 Zoloft PO 50 mg DAILY RICHARD Administration Sertraline HCl 50 mg 07/19/17 09:00 Zoloft PO DAILY RICHARD Simvastatin 20 mg 07/16/17 21:00 Zocor PO HS RICHARD Sodium Chloride 10 - 80 ml 07/15/17 18:28 07/16/17 10:43 Iv Flush IVF 40 ml PRN PRN Administration Flushing Sodium Chloride 10 - 80 ml 07/15/17 18:38 07/22/17 10:13 Iv Flush IVF 10 ml PRN PRN Administration Flushing Sodium Chloride 500 ml 07/17/17 03:45 07/17/17 04:14 Normal Saline IV 500 ml PRN PRN Administration Vancomycin HCl 1 each 07/16/17 06:22 07/16/17 08:31 Pharmacy Consult - Vancomycin 07/16/17 06:23 1 each O ONE Administration - Urinary Catheter Management Urethral Cath placed during this visit: no Results 07/23/17 03:53 07/23/17 03:53 Assessment and Plan - Assessment and Plan (1) Dilated cardiomyopathy Problem details: EF 10-15% with 3/4 diastolic dysfunction on 06/11/17 EF 30% on TTE done 10/2015; global hypokinesis and dilated LV; EF 55% 09/2016 Status: Chronic (2) Hypertension Problem details: Off all medications for > 6 months, uncontrolled Status: Chronic (3) COPD, severe Problem details: on 3L NC chronically at home Status: Chronic (4) Tobacco dependence syndrome Problem details: Ongoing, discussed cessation, unclear how much he is smoking routinely Status: Chronic (5) Congestive heart failure Problem details: Systolic Status: Acute (6) Methamphetamine intoxication Status: Acute (7) Methamphetamine substance use disorder, mild, in sustained remission, in controlled environment, abuse Status: Chronic (8) Hypoglycemia Status: Acute (9) Acute kidney injury Status: Acute (10) PAF (paroxysmal atrial fibrillation) Status: Chronic - Attestation Attestation Narrative: 07/26/17 15:03 Recommendation After examining the patient I agree with the above assessment. I am involved in the formulation of the patient's plan of care. Hospital Course Summary Disclaimer: The visit summary below is not to be considered part of the above Progress Note.
[2017-07-19] MEDS: GABAPENTIN 300 MG CAPSULE PO SCH (20:49)
[2017-07-20] MEDS: ARFORMOTEROL NEB 15mcg/2ml AEROSOL SCH ×2 (07:37→18:52)
[2017-07-20] MEDS: BUDESONIDE INH.SOLN 0.5mg/2ml NEB AEROSOL SCH ×2 (07:37→20:28)
[2017-07-20] MEDS: GABAPENTIN 100 MG CAPSULE PO SCH ×2 (09:03→14:52)
[2017-07-20] MEDS: CARVEDILOL 6.25 MG TABLET PO SCH (09:03)
[2017-07-20] MEDS: LISINOPRIL 2.5 MG TABLET PO SCH (09:03)
[2017-07-20] MEDS: FUROSEMIDE 40 MG TABLET PO SCH (09:03)
[2017-07-20] MEDS: SERTRALINE 50 MG TABLET PO SCH (09:03)
[2017-07-20] MEDS: PANTOPRAZOLE 40 MG INJECTION IVP SCH (09:04)
[2017-07-20] MEDS: SALINE FLUSH 10ml SYRINGE IVF PRN (09:04)
--- NOTE | 2017-07-20 10:12 | Pulmonology Progress Note ---
Subjective Principal diagnosis: CM, CHF Interval history: Pt in bed resting on his trilogy vent, no issues noted. States he ambulated the halls this am. Exam Vital signs: Temperature 96.8 F 07/20/17 04:00 Pulse Rate 73 07/20/17 08:00 Respiratory Rate 16 07/20/17 07:38 Blood Pressure 136/98 H 07/20/17 04:00 Pulse Oximetry 93 07/20/17 08:59 Inpatient Medications: Generic Name Dose Route Start Last Admin Trade Name Freq PRN Reason Stop Dose Admin Albuterol/Ipratropium 3 ml 07/16/17 10:02 07/17/17 15:22 Duoneb AEROSOL 3 ml RTQID PRN Administration Arformoterol Tartrate 15 mcg 07/16/17 12:00 07/20/17 07:37 Brovana Neb AEROSOL 15 mcg RTBID RICHARD Administration Bisacodyl 10 mg 07/18/17 17:02 Dulcolax RECTALLY DAILY PRN Constipation Budesonide 0.5 mg 07/16/17 12:00 07/20/17 07:37 Pulmicort Inhalation AEROSOL 0.5 mg RTBID RICHARD Administration Carvedilol 6.25 mg 07/17/17 17:30 07/20/17 09:03 Coreg PO 6.25 mg BIDWM RICHARD Administration Furosemide 40 mg 07/16/17 12:00 07/20/17 09:03 Lasix 40 Mg Tab PO 40 mg DAILY RICHARD Administration Gabapentin 300 mg 07/16/17 21:00 07/19/17 20:49 Neurontin PO 300 mg HS RICHARD Administration Gabapentin 200 mg 07/16/17 14:00 07/20/17 09:03 Neurontin PO 200 mg 0800,1400 RICHARD Administration Ceftriaxone Sodium 1 g/ Sodium 100 mls @ 200 mls/hr 07/16/17 11:00 07/19/17 12:04 Chloride IV Infused Q24H RICHARD Infusion Insulin Aspart 1 - 5 unit 07/16/17 15:03 Novolog SQ SS PRN Hyperglycemia Protocol Lisinopril 2.5 mg 07/18/17 11:00 07/20/17 09:03 Prinivil PO 2.5 mg DAILY RICHARD Administration Lorazepam 0.5 mg 07/15/17 22:19 07/16/17 04:21 Ativan Inj IVP 0.5 mg Q4H PRN Administration Agitation/Restlessness Magnesium Hydroxide 30 ml 07/18/17 17:02 Mom PO DAILY PRN Constipation Ondansetron HCl 4 mg 07/15/17 21:51 Zofran IVP Q6H PRN Nausea &/or vomiting Pantoprazole Sodium 40 mg 07/16/17 09:00 07/20/17 09:04 Protonix Iv IVP 40 mg DAILY RICHARD Administration Rivaroxaban 20 mg 07/18/17 17:30 07/19/17 17:29 Xarelto PO 20 mg WS RICHARD Administration Sertraline HCl 50 mg 07/16/17 10:00 07/20/17 09:03 Zoloft PO 50 mg DAILY RICHARD Administration Sodium Chloride 10 - 80 ml 07/15/17 18:38 07/20/17 09:04 Iv Flush IVF 10 ml PRN PRN Administration Flushing Sodium Chloride 500 ml 07/17/17 03:45 07/17/17 04:14 Normal Saline IV 500 ml PRN PRN Administration Discontinued Medications Generic Name Dose Route Start Last Admin Trade Name Freq PRN Reason Stop Dose Admin Amiodarone HCl 200 mg 07/16/17 12:00 07/16/17 14:36 Pacerone PO 200 mg DAILY RICHARD Administration Carvedilol 3.125 mg 07/16/17 17:30 07/17/17 09:07 Coreg PO 3.125 mg BIDWM RICHARD Administration Heparin Sodium (Porcine) 5,000 units 07/16/17 09:45 07/18/17 08:16 Heparin Sq SQ 5,000 units Q8HR RICHARD Administration Dextrose/Sodium Chloride 1,000 mls @ 250 mls/hr 07/15/17 18:30 07/16/17 04:50 Dextrose 5%-Normal Saline IV Not Given .Q4H RICHARD Dextrose/Sodium Chloride 1,000 mls @ 50 mls/hr 07/15/17 22:00 07/16/17 08:31 D5-1/2ns IV Infused .Q20H RICHARD Infusion Ceftriaxone Sodium 1 g/ Sodium 100 mls @ 200 mls/hr 07/15/17 22:19 07/16/17 01:04 Chloride IV 07/15/17 22:48 Infused O ONE Infusion Vancomycin HCl 2,000 mg/ 500 mls @ 250 mls/hr 07/16/17 07:10 07/16/17 10:38 Sodium Chloride IV 07/16/17 07:11 Infused O ONE Infusion Vancomycin HCl 1,000 mg/ 250 mls @ 250 mls/hr 07/16/17 08:56 Sodium Chloride IV 07/16/17 08:57 O ONE Vancomycin HCl 1,000 mg/ 250 mls @ 250 mls/hr 07/16/17 16:30 07/18/17 05:18 Sodium Chloride IV Infused Q12H RICHARD Infusion Vancomycin HCl 1,250 mg/ 250 mls @ 200 mls/hr 07/18/17 16:00 07/19/17 06:30 Sodium Chloride IV Infused Q12H RICHARD Infusion Lisinopril 2.5 mg 07/16/17 12:00 07/16/17 14:35 Prinivil PO 2.5 mg DAILY RICHARD Administration Lorazepam 2 mg 07/15/17 18:28 07/15/17 22:15 Ativan Inj IVP 07/15/17 18:29 2 mg O ONE Administration Metoclopramide HCl 5 mg 07/15/17 21:51 Reglan IVP Q6H PRN Morphine Sulfate 1 - 2 mg 07/15/17 21:51 Morphine Sulf 2 Mg Inj IVP Q2H PRN Pain Pharmacy Consult each 07/16/17 00:49 Pharmacy Consult - Fall Risk 07/16/17 00:50 ONE TIME ONE Sertraline HCl 50 mg 07/19/17 09:00 Zoloft PO DAILY RICHARD Simvastatin 20 mg 07/16/17 21:00 Zocor PO HS RICHARD Sodium Chloride 10 - 80 ml 07/15/17 18:28 07/16/17 10:43 Iv Flush IVF 40 ml PRN PRN Administration Flushing Vancomycin HCl 1 each 07/16/17 06:22 07/16/17 08:31 Pharmacy Consult - Vancomycin 07/16/17 06:23 1 each O ONE Administration - Constitutional no acute distress, morbidly obese, cooperative - Routine HEENT Exam Head: Present: normocephalic, atraumatic Eye: Present: EOMI, PERRL - Routine Neck Exam Present: supple, full ROM, trachea midline - Routine Respiratory Exam Present: decreased breath sounds. Absent: accessory muscle use, patient mechanically ventilated - Routine Cardiovascular Exam Present: RRR, S1, S2, no murmur - Routine Abdominal Exam Present: soft, normoactive bowel sounds - Routine Extremities Exam Present: no edema, non tender, full ROM. Absent: cyanosis, clubbing, edema - Routine Back/Spine/Pelvis Exam Back/Spine: Present: full ROM - Routine Skin Exam Present: intact, dry - Routine Neurological Exam Present: alert, oriented X3, CN II-XII intact - Routine Psychiatric Exam Present: normal affect, normal thought process - Urinary Catheter Management Urethral Cath placed during this visit: yes, but has since been removed by the nurse Insertion date: 07/15/17 Insertion time: 22:45 Removal date: 07/19/17 Removal time: 11:30 Results - Laboratory Findings Laboratory: Laboratory Results - last 48 hr 07/18/17 07/18/17 07/19/17 11:29 16:42 04:26 WBC 7.3 RBC 4.31 L Hgb 11.9 L Hct 39.7 L MCV 92.1 MCH 27.6 MCHC 30.0 L RDW Std Deviation 61.3 H Plt Count 115 L MPV 10.5 Immature Gran % (Auto) 0.1 Neut % (Auto) 74.5 H Lymph % (Auto) 13.1 L [place] % (Auto) 11.0 H Eos % (Auto) 1.0 Baso % (Auto) 0.3 Neut # (Auto) 5.4 Lymph # (Auto) 1.0 [place] # (Auto) 0.8 Eos # (Auto) 0.1 Baso # (Auto) 0.0 Abs Immat Gran (auto) 0.01 Turbidity Sodium Potassium Chloride Carbon Dioxide Anion Gap BUN Creatinine GFR Calculation BUN/Creatinine Ratio Glucose Glucometer 107 165 Calculated Osmolality Calcium Total Bilirubin Icterus Index AST ALT Alkaline Phosphatase Total Protein Albumin Globulin Albumin/Globulin Ratio Specimen Hemolysis 07/19/17 07/20/17 07/20/17 04:26 04:42 04:42 WBC 12.0 H D RBC 4.69 Hgb 12.8 L Hct 43.4 MCV 92.5 MCH 27.3 MCHC 29.5 L RDW Std Deviation 61.9 H Plt Count 118 L MPV 10.9 Immature Gran % (Auto) 0.3 Neut % (Auto) 79.7 H Lymph % (Auto) 9.3 L [place] % (Auto) 9.0 Eos % (Auto) 1.5 Baso % (Auto) 0.2 Neut # (Auto) 9.6 H Lymph # (Auto) 1.1 [place] # (Auto) 1.1 H Eos # (Auto) 0.2 Baso # (Auto) 0.0 Abs Immat Gran (auto) 0.04 H Turbidity < 20 < 20 Sodium 143 145 H Potassium 4.1 4.2 Chloride 98 98 Carbon Dioxide 38 H 39 H Anion Gap 7 8 BUN 23.0 H 17.0 Creatinine 0.8 D 0.8 GFR Calculation 102 102 BUN/Creatinine Ratio 29 H 21 Glucose 108 122 H Glucometer Calculated Osmolality 280 282 H Calcium 8.4 8.6 Total Bilirubin 1.00 0.80 Icterus Index < 2 < 2 AST 240 H 153 H ALT 301 H 230 H Alkaline Phosphatase 108 113 Total Protein 6.5 7.0 Albumin 3.4 L 3.6 Globulin 3.1 3.4 Albumin/Globulin Ratio 1.1 1.1 Specimen Hemolysis < 15 < 15 Assessment and Plan - Assessment and Plan Acute on Chronic Hypoxic Hypercapnic Respiratory Failure COPD - unknown severity, was to be on BT's at home but unsure if he has been using his meds was supposed to be on budesonde BID and brovana BID with albuterol neb 1-2 times a day Methamphetamine use Acute on Chronic systolic HF/non ischemic cardiomyopathy, current EF less then 10% MARGI Atrial fibrillation hypoglycemia Abdominal cellulitis Plan: Pt currently on his home trilogy, otherwise on 3L per NC. Will continue his BT' s with budesonde BID, brovana BID with albuterol neb prn. No new CXR, on coreg and diuresis for CM/CHF. Cr improving along with liver enzymes. WBC up slightly , afebrile, abdominal cellulitis noted on ceftriaxone per primary. - Time Spent With Patient Total time spent is greater than 50% in coordination of care (as documented) at patient's floor/unit and/or counseling patient: less than 15 minutes
[2017-07-20] MEDS: CEFTRIAXONE 1 G in NS 100 ML IV SCH (11:08)
--- NOTE | 2017-07-20 11:39 | Progress Note ---
- Date 07/20/17 Subjective: Patient seen in follow-up of toxic/metabolic encephalopathy secondary to hypoglycemia, meth, and CO2 narcosis. He is resting in bed with Bipap during visit. He reports that he ambulated clear across the unit this morning. He doesn 't have any complaints at the present time - no CP, SOA, n/v or abd pain. He is happy to have the catheter out. States he has had several BM's since yesterday. Objective Vital signs: Temperature 97.0 F 07/20/17 08:00 Pulse Rate 81 07/20/17 08:00 Respiratory Rate 16 07/20/17 08:00 Blood Pressure 142/82 H 07/20/17 08:00 Pulse Oximetry 93 07/20/17 08:59 Height/Weight/BMI: Height 1.83 m Weight 132.5 kg Body Mass Index 39.9 - Constitutional Present: no acute distress, well nourished, well developed - Routine HEENT Exam Head: Present: normocephalic, atraumatic - Routine Respiratory Exam Present: decreased breath sounds, distant breath sounds - Routine Cardiovascular Exam Present: RRR, no murmur - Routine Abdominal Exam Present: soft, non distended, non tender - Routine Extremities Exam Present: no edema, normal capillary refill - Routine Skin Exam Present: dry, warm - Routine Neurological Exam Present: alert, oriented X3 - Routine Lymphatic Exam Lymphatic: Absent: adenopathy - Routine Psychiatric Exam Present: normal affect, cooperative Results - Labs CBC & Chem 7: 07/20/17 04:42 07/20/17 04:42 Microbiology Results: Microbiology 07/15/17 21:02 Peripheral/Iv Start Blood Culture - Preliminary No Growth After 4 Days 07/16/17 12:21 Peripheral/Iv Start Blood Culture - Preliminary No Growth After 3 Days Assessment and Plan (1) Metabolic encephalopathy Current visit: Yes Status: Acute (2) Methamphetamine intoxication Current visit: Yes Status: Acute (3) Hypoglycemia Current visit: Yes Status: Acute (4) Dilated cardiomyopathy Problem details: EF 10-15% with 3/4 diastolic dysfunction on 06/11/17 EF 30% on TTE done 10/2015; global hypokinesis and dilated LV; EF 55% 09/2016 Current visit: No Status: Chronic (5) Hypertension Problem details: Off all medications for > 6 months, uncontrolled Current visit: No Status: Chronic (6) COPD, severe Problem details: on 3L NC chronically at home Current visit: No Status: Chronic (7) Tobacco dependence syndrome Problem details: Ongoing, discussed cessation, unclear how much he is smoking routinely Current visit: No Status: Chronic (8) Anxiety Problem details: Severe and chronic, untreated, exacerbated by dyspnea Current visit: No Status: Acute (9) Congestive heart failure Problem details: Systolic Current visit: No Status: Acute (10) Methamphetamine substance use disorder, mild, in sustained remission, in controlled environment, abuse Current visit: Yes Status: Chronic (11) Hypoglycemia Current visit: Yes Status: Acute (12) Acute kidney injury Current visit: Yes Status: Acute Assessment and Plan: Assessment Toxic/Metabolic encephalopathy (POA) - secondary to hypoglycemia, meth, and CO2 narcosis Acute hypoglycemia (POA) - resolved Acute methamphetamine intoxication with agitation and encephalopathy (POA) Acute Kidney Injury (POA) -resolved Leukocytosis (POA) Elevated Lactate (POA) - likely secondary to cardiomyopathy Chronic systolic CHF from NICM VALARIE Chronic hypoxic/hypercapnic respiratory failure - Trilogy vent at home, 3L during day COPD - on chronic oxygen at home 3 L H/O aflutter Hyperbilirubinemia and elevated liver enzymes - likely passive congestion of liver with medication effect Possible acute/recurrent cellulitis of abdominal wall - history of MRSA HLP Stage III CKD Tinea of skin folds Depression/Anxiety Tobacco dependency Morbid obesity Plan Creatinine and BUN have normalized. LFT's continue to improve. Per cardiology - Increase Coreg to 12.5mg BIDWM and lisinopril to 5mg daily. Resume amiodarone when LFT's normalize. Patient has shown some effort to work with therapy. Importance of working with PT/OT reiterated if pt wants to DC home. Pulmonology following - cont home trilogy at [facility], nebulizers. Vanc DC'd yesterday, continues on ceftrixone for abdominal wall cellulitis. WBC up today, but doubt r/t infection. Repeat in am. DVT Prophylaxis: Xarelto GI Prophylaxis: Protonix Resuscitation Status: Full Code - Time spent with patient Time with patient PN: 25 minutes - Physician Narrative Physician: David Medrano MD Narrative: Date: 07/20/17 Time: 1600 Have independently interviewed and examined pt (Saw this morning and again this afternoon). Chart reviewed. Case discussed with CM, Pulm, Cardiology, nursing, and my PA. Care plan developed with my supervision; agree with above. Resting in bed this afternoon, readily awakens for conversation. Did go for a walk in halls with nursing this morning. Not up as much this afternoon, but nursing reports will get up on his own. Nursing reports he tends to remove tele and be up unsupervised (will turn off bed alarm). Didn't eat much at lunch- notes stools more loose and urgent. Breathing stable. Lungs: decreased bilaterally. No crackles or wheeze. CV: regular AB: soft obese nt MSE: Will awaken and converse appropriately. Plan: Stressed the importance of being more mobile if he want to return home - with his multiple medical problems and history of nonadherence at home, worry that he will be needing [facility] care in near future if current trends continue. In discussion with pulm-he is at his baseline. Dr Barber has increase Coreg to 12.5mg BID and lisinopril to 5mg daily. Will continue Rocephin , but ab cellulitis showing significant improvement. Recheck lab in am. Likely ab to discharge in near future - outpatient compliance will be a concern. Hospital Course Summary Disclaimer: The visit summary below is not to be considered part of the above Progress Note. Hospital Course: 07/15/17 Admission - CCU Check ABG R/O AMI w serial enzymes Ativan PRN and restraints for patient and staff safety IV Rocephin x 1 for abd wall cellulitis, start vanco in AM when better IV access avaialbe, asked nursing to cassandra cellulitis w line Get off iv fluids fouzia with recent CHF issues Nebs PRN, no wheezing noted and minimal O2 requirements at this time Follow labs, check liver panel in AM and abd sono Critically ill: Guarded prognosis Care to return to Dr Rueda at time of discharger from [facility]. 07/16/17 Acute hypoglycemia - Could be toxic effects of meth, does not have any insulin at home. Currently on D5 half normal saline at 50 mls per hour-dc and follow blood sugars Acute methamphetamine intoxication with agitation and encephalopathy -appears to be improving, still a bit agitated. Ativan PRN. Remove four- point restraints when he can be trusted not to take his BiPAP off Chronic systolic CHF from NICM - EKG looks unchanged, chest x-ray stable at this point Dr. Merchant consulted Resume Coreg. Holding MANI I due to MARGI VALARIE - requiring BiPAP to maintain saturations H/O aflutter Hold amiodarone for now due to elevated LFTs - In SR at present Hold Xarelto for now COPD - on chronic oxygen at home [address] Rebolledo consulted Morbid obesity Acute Renal failure -will repeat labs this afternoon, poor urine output Hyperbilirubinemia and elevated liver enzymes - will repeat labs in follow, Bili trending down, AST/ALT trending up -Hepatitis panel pending -Hold amiodarone for now Possible acute/ recurrent cellulitis - history of MRSA Vancomycin started, pharm consult for dosing - Rocephin IV HLP - Holding statin due to elevated LFTs Possible acute severe sepsis (lactate > 2, cellulitis) Present on admit - Repeat lactate normal Will consult wound and skin Nystatin for groin folds 07/17/17 Blood sugars improved, encephalopathy improving but patient still very somnolent. Minimize benzodiazepines and narcotics. Last lorazepam yesterday am. Respiratory status improving - maintaining saturation on baseline 3L. Wearing BiPAP as directed. Renal status improve with creatinine decreasing to 1.8. Oral intake decreased. Not on IVF secondary to cardiomyopathy. On home maintenance furosemide. Lisinopril remains on hold. Liver enzymes gradually decreasing. Holding amiodarone and simvastatin. Will continue with vancomycin and ceftriaxone for antimicrobial coverage, WBC decreased to 11.8. Increase activities as somnolence improves. Transfer to medical floor as encephalopathy decreasing. 07/18/17 Respiratory status improving -continues on baseline oxygen of 3 liters. Utilizing BiPAP with sleeping and napping. Creatinine continues to improve, today down to 1.1. With resuming low-dose lisinopril 2.5 milligrams daily LFTs also continued to improve- amiodarone and simvastatin remain on hold. Continue with vancomycin and ceftriaxone for antimicrobial coverage of abdominal skin. Will restart Xarelto and stop SQ Heparin. Consult placed for PT and OT to evaluate strength and function. Patient refuse to work with therapy today. States "I'm too weak. I can't even roll over." Consultations with Dr. Rebolledo and Dr. Merchant. 07/19/17 Creatinine continues to improve 1.1-->0.8. LFTs also continue to improve-amiodarone and simvastatin remain on hold. Will have cardiology restart when they feel appropriate. technician's helper reports few episodes of Vtach overnight and this am. Cardiology following. Pulmonology following - cont home trilogy at [facility], nebulizers. Pt sats mostly >95 % on 3L - wean as able keeping sats >90% Leukocytosis resolved. Ab wall cellulitis improving - will continue ceftriaxone but can stop Vancomycin. Encouraged pt to work with therapy today despite his overwhelming fatigue. Stressed to patient the importance of being up more and being mobile. Needs for acute hospitalization are decreasing-worry pt will be too debilitated to return home when that time comes. Discuss with patient about working with therapy when they come by and not refusing. Stressed need to be up and more mobile. If patient unwilling or unable to do these activities, likelihood for returning home is low. Discussed about potential for [facility] care if not able to be more active and mobile. Pt reports he will work on this. 07/20/17 Creatinine and BUN have normalized. LFT's continue to improve. Per cardiology - Increase Coreg to 12.5mg BIDWM and lisinopril to 5mg daily. Resume amiodarone when LFT's normalize. Patient has shown some effort to work with therapy. Importance of working with PT/OT reiterated if pt wants to DC home. Pulmonology following - cont home trilogy at [facility], nebulizers. Pulm reports patient at baseline pulmonary status. Vanc DC'd yesterday, continues on ceftriaxone for abdominal wall cellulitis. WBC up today, but doubt r/t infection. Repeat in am.
--- NOTE | 2017-07-20 16:49 | Cardiology Progress Note ---
<Caryl Salas - Last Filed: 07/20/17 16:45> Subjective Principal diagnosis: CM, CHF Interval history: Gray is seen in follow up for CM and CHF. Gray is in his bed, wearing Bi-PAP, in no acute distress. He denies chest pain or palpitations. Exam Vital signs: Temperature 96.1 F L 07/20/17 12:00 Pulse Rate 69 07/20/17 16:00 Respiratory Rate 16 07/20/17 12:00 Blood Pressure 132/70 07/20/17 12:00 Pulse Oximetry 88 L 07/20/17 13:29 Inpatient Medications: Generic Name Dose Route Start Last Admin Trade Name Freq PRN Reason Stop Dose Admin Albuterol/Ipratropium 3 ml 07/16/17 10:02 07/17/17 15:22 Duoneb AEROSOL 3 ml RTQID PRN Administration Arformoterol Tartrate 15 mcg 07/16/17 12:00 07/20/17 07:37 Brovana Neb AEROSOL 15 mcg RTBID RICHARD Administration Bisacodyl 10 mg 07/18/17 17:02 Dulcolax RECTALLY DAILY PRN Constipation Budesonide 0.5 mg 07/16/17 12:00 07/20/17 07:37 Pulmicort Inhalation AEROSOL 0.5 mg RTBID RICHARD Administration Carvedilol 12.5 mg 07/20/17 17:30 Coreg PO BIDWM RICHARD Furosemide 40 mg 07/16/17 12:00 07/20/17 09:03 Lasix 40 Mg Tab PO 40 mg DAILY RICHARD Administration Gabapentin 300 mg 07/16/17 21:00 07/19/17 20:49 Neurontin PO 300 mg HS RICHARD Administration Gabapentin 200 mg 07/16/17 14:00 07/20/17 14:52 Neurontin PO 200 mg 0800,1400 RICHARD Administration Ceftriaxone Sodium 1 g/ Sodium 100 mls @ 200 mls/hr 07/16/17 11:00 07/20/17 11:48 Chloride IV Infused Q24H RICHARD Infusion Insulin Aspart 1 - 5 unit 07/16/17 15:03 Novolog SQ SS PRN Hyperglycemia Protocol Lisinopril 5 mg 07/21/17 09:00 Prinivil PO DAILY RICHARD Lorazepam 0.5 mg 07/15/17 22:19 07/16/17 04:21 Ativan Inj IVP 0.5 mg Q4H PRN Administration Agitation/Restlessness Magnesium Hydroxide 30 ml 07/18/17 17:02 Mom PO DAILY PRN Constipation Ondansetron HCl 4 mg 07/15/17 21:51 Zofran IVP Q6H PRN Nausea &/or vomiting Pantoprazole Sodium 40 mg 07/16/17 09:00 07/20/17 09:04 Protonix Iv IVP 40 mg DAILY RICHARD Administration Rivaroxaban 20 mg 07/18/17 17:30 07/19/17 17:29 Xarelto PO 20 mg WS RICHARD Administration Sertraline HCl 50 mg 07/16/17 10:00 07/20/17 09:03 Zoloft PO 50 mg DAILY RICHARD Administration Sodium Chloride 10 - 80 ml 07/15/17 18:38 07/20/17 09:04 Iv Flush IVF 10 ml PRN PRN Administration Flushing Sodium Chloride 500 ml 07/17/17 03:45 07/17/17 04:14 Normal Saline IV 500 ml PRN PRN Administration Discontinued Medications Generic Name Dose Route Start Last Admin Trade Name Freq PRN Reason Stop Dose Admin Amiodarone HCl 200 mg 07/16/17 12:00 07/16/17 14:36 Pacerone PO 200 mg DAILY RICHARD Administration Carvedilol 3.125 mg 07/16/17 17:30 07/17/17 09:07 Coreg PO 3.125 mg BIDWM RICHARD Administration Carvedilol 6.25 mg 07/17/17 17:30 07/20/17 09:03 Coreg PO 6.25 mg BIDWM RICHARD Administration Heparin Sodium (Porcine) 5,000 units 07/16/17 09:45 07/18/17 08:16 Heparin Sq SQ 5,000 units Q8HR RICHARD Administration Dextrose/Sodium Chloride 1,000 mls @ 250 mls/hr 07/15/17 18:30 07/16/17 04:50 Dextrose 5%-Normal Saline IV Not Given .Q4H RICHARD Dextrose/Sodium Chloride 1,000 mls @ 50 mls/hr 07/15/17 22:00 07/16/17 08:31 D5-1/2ns IV Infused .Q20H RICHARD Infusion Ceftriaxone Sodium 1 g/ Sodium 100 mls @ 200 mls/hr 07/15/17 22:19 07/16/17 01:04 Chloride IV 05/06/18 22:48 Infused O ONE Infusion Vancomycin HCl 2,000 mg/ 500 mls @ 250 mls/hr 07/16/17 07:10 07/16/17 10:38 Sodium Chloride IV 07/16/17 07:11 Infused O ONE Infusion Vancomycin HCl 1,000 mg/ 250 mls @ 250 mls/hr 07/16/17 08:56 Sodium Chloride IV 07/16/17 08:57 O ONE Vancomycin HCl 1,000 mg/ 250 mls @ 250 mls/hr 07/16/17 16:30 07/18/17 05:18 Sodium Chloride IV Infused Q12H RICHARD Infusion Vancomycin HCl 1,250 mg/ 250 mls @ 200 mls/hr 07/18/17 16:00 07/19/17 06:30 Sodium Chloride IV Infused Q12H RICHARD Infusion Lisinopril 2.5 mg 07/16/17 12:00 07/16/17 14:35 Prinivil PO 2.5 mg DAILY RICHARD Administration Lisinopril 2.5 mg 07/18/17 11:00 07/20/17 09:03 Prinivil PO 2.5 mg DAILY RICHARD Administration Lorazepam 2 mg 07/15/17 18:28 07/15/17 22:15 Ativan Inj IVP 07/15/17 18:29 2 mg O ONE Administration Metoclopramide HCl 5 mg 07/15/17 21:51 Reglan IVP Q6H PRN Morphine Sulfate 1 - 2 mg 07/15/17 21:51 Morphine Sulf 2 Mg Inj IVP Q2H PRN Pain Pharmacy Consult each 07/16/17 00:49 Pharmacy Consult - Fall Risk 07/16/17 00:50 ONE TIME ONE Sertraline HCl 50 mg 07/19/17 09:00 Zoloft PO DAILY RICHARD Simvastatin 20 mg 07/16/17 21:00 Zocor PO HS RICHARD Sodium Chloride 10 - 80 ml 07/15/17 18:28 07/16/17 10:43 Iv Flush IVF 40 ml PRN PRN Administration Flushing Vancomycin HCl 1 each 07/16/17 06:22 07/16/17 08:31 Pharmacy Consult - Vancomycin 07/16/17 06:23 1 each O ONE Administration - Constitutional no acute distress, obese, cooperative - Routine HEENT Exam Head: Present: normocephalic ENT: Present: mucous membranes moist - Routine Neck Exam Absent: JVD, carotid bruit - Routine Chest/Breast/Axilla Exam Chest wall: Absent: tenderness - Routine Respiratory Exam Present: decreased breath sounds, wheezes. Absent: dyspnea, CTA bilaterally - Routine Cardiovascular Exam Present: RRR, no murmur - Routine Abdominal Exam Present: soft, non tender - Routine Extremities Exam Present: no edema - Routine Skin Exam Present: intact, dry, warm - Routine Neurological Exam Present: alert, oriented X3 - Routine Psychiatric Exam Present: normal affect, normal thought process - Urinary Catheter Management Urethral Cath placed during this visit: yes, but has since been removed by the nurse Insertion date: 07/15/17 Insertion time: 22:45 Removal date: 07/19/17 Removal time: 11:30 Results 07/20/17 04:42 07/20/17 04:42 Cardiac Enzymes 07/20/17 Range/Units 04:42 AST 153 H (17-59) U/L CBC 07/20/17 Range/Units 04:42 WBC 12.0 H D (4.5-11.0) T/MM3 RBC 4.69 (4.50-5.90) M/MM3 Hgb 12.8 L (13.5-17.5) GM/DL Hct 43.4 (41-53) % Plt Count 118 L (130-400) T/MM3 Neut # (Auto) 9.6 H (1.8-7.7) T/MM3 Lymph # (Auto) 1.1 (1-4.8) T/MM3 [place] # (Auto) 1.1 H (0-0.8) T/MM3 Eos # (Auto) 0.2 (0-0.5) T/MM3 Baso # (Auto) 0.0 (0-0.2) T/MM3 Comprehensive Metabolic Panel 07/20/17 Range/Units 04:42 Sodium 145 H (134-144) MEQ/L Potassium 4.2 (3.6-5) MEQ/L Chloride 98 (98-107) MEQ/L Carbon Dioxide 39 H (22-30) MEQ/L BUN 17.0 (9-20) MG/DL Creatinine 0.8 (0.8-1.5) mg/dL Glucose 122 H (75-110) MG/DL Calcium 8.6 (8.4-10.2) MG/DL AST 153 H (17-59) U/L ALT 230 H (1-50) U/L Alkaline Phosphatase 113 (38-126) U/L Total Protein 7.0 (6.3-8.2) g/dL Albumin 3.6 (3.5-5.0) g/dL Intake and Output 07/20/17 07/20/17 07/20/17 06:59 14:59 22:59 Intake Total 100 / 100 310 / 310 Output Total 275 / 275 1250 / 1250 Balance -175 / -175 -940 / -940 Intake: IV 100 / 100 Ceftriaxone 1 g In Ns 100 ml @ 100 / 100 200 mls/hr IV Q24H [facility] Rx#: [id number] Oral 100 / 100 210 / 210 Output: Urine 275 / 275 1250 / 1250 Other: Urine Appearance Clear Urine Color Yellow Stool Color Brown Size of Bowel Movement Small Weight 292 lb 1.8 oz Patient Weight 07/21/17 06:59 Weight 292 lb 1.8 oz Assessment and Plan - Assessment and Plan (1) Methamphetamine intoxication Status: Acute (2) Hypoglycemia Status: Acute (3) Congestive heart failure Problem details: Systolic Status: Acute (4) Acute kidney injury Status: Acute (5) Methamphetamine substance use disorder, mild, in sustained remission, in controlled environment, abuse Status: Chronic (6) Dilated cardiomyopathy Problem details: EF 10-15% with 3/4 diastolic dysfunction on 06/11/17 EF 30% on TTE done 10/2015; global hypokinesis and dilated LV; EF 55% 09/2016 Status: Chronic (7) Hypertension Problem details: Off all medications for > 6 months, uncontrolled Status: Chronic (8) COPD, severe Problem details: on 3L NC chronically at home Status: Chronic (9) Tobacco dependence syndrome Problem details: Ongoing, discussed cessation, unclear how much he is smoking routinely Status: Chronic (10) PAF (paroxysmal atrial fibrillation) Status: Chronic - Assessment and Plan 07/16/17 Meth intoxication: Found unresponsive by friends who reported Meth use to EMS - UDS positive for amphetamines and methamphetamines - Patient denied use Hypoglycemia: EMS documented BG of 25 - No insulin found with his other medications Systolic CHF: Acute on chronic - BNP 8550 - Diuresis with Lasix 40mg daily MARGI: BUN/ SCr 43/ 2.4 on admission - Hold Lisinopril Dilated CM: Discharged last hospitalization with LifeVest on - Patient not wearing Life Vest - Continue low dose Coreg as tolerated when able to swallow PO HTN: Hold Lisinopril until renal function improves to baseline Meth abuse COPD Tobacco dependence Thank you for letting us participate in the care of this patient, we will follow along with you. 07/17/17 Alert today, denies complaints - Increase Coreg to 6.25mg BID MARGI: improving, BUN 51/ SCr 1.8 today 07/18/17 PAF: Afib with Aberrancy seen on telemetry - Continue to hold Amiodarone for now due to LFTs, slowly improving. - AST 1169 ->663 ->374, ALT 548 -> 458 -> 366 - Need to consider restarting Xarelto Vs. Coumadin for chronic anticoagulation for PAF MARGI: BUN 33/SCr 1.1 today - Resume low dose Lisinopril 07/19/17 Continues to have runs of aberrant A Fib. - Resume Amiodarone when LFTs normalize - Xarelto restarted yesterday evening 07/20/17 Increase Coreg to 12.5mg for NSVT seen on telemetry - Increase Lisinopril to 5mg for better bp control - Continue to hold Amiodarone and Statin for now. Hospital Course Summary Disclaimer: The visit summary below is not to be considered part of the above Progress Note. Hospital Course: 07/15/17 Admission - CCU Check ABG R/O AMI w serial enzymes Ativan PRN and restraints for patient and staff safety IV Rocephin x 1 for abd wall cellulitis, start vanco in AM when better IV access myrtle, asked nursing to cassandra cellulitis w line Get off iv fluids fouzia with recent CHF issues Nebs PRN, no wheezing noted and minimal O2 requirements at this time Follow labs, check liver panel in AM and abd sono Critically ill: Guarded prognosis Care to return to Dr Rueda at time of discharger from [facility]. 07/16/17 Acute hypoglycemia - Could be toxic effects of meth, does not have any insulin at home. Currently on D5 half normal saline at 50 mls per hour-dc and follow blood sugars Acute methamphetamine intoxication with agitation and encephalopathy -appears to be improving, still a bit agitated. Ativan PRN. Remove four- point restraints when he can be trusted not to take his BiPAP off Chronic systolic CHF from [facility] - EKG looks unchanged, chest x-ray stable at this point Dr. Merchant consulted Resume Coreg. Holding MANI I due to MARGI VALARIE - requiring BiPAP to maintain saturations H/O aflutter Hold amiodarone for now due to elevated LFTs - In SR at present Hold Xarelto for now COPD - on chronic oxygen at home [address] Rebolledo consulted Morbid obesity Acute Renal failure -will repeat labs this afternoon, poor urine output Hyperbilirubinemia and elevated liver enzymes - will repeat labs in follow, Bili trending down, AST/ALT trending up -Hepatitis panel pending -Hold amiodarone for now Possible acute/ recurrent cellulitis - history of MRSA Vancomycin started, pharm consult for dosing - Rocephin IV HLP - Holding statin due to elevated LFTs Possible acute severe sepsis (lactate > 2, cellulitis) Present on admit - Repeat lactate normal Will consult wound and skin Nystatin for groin folds 07/17/17 Blood sugars improved, encephalopathy improving but patient still very somnolent. Minimize benzodiazepines and narcotics. Last lorazepam yesterday am. Respiratory status improving - maintaining saturation on baseline 3L. Wearing BiPAP as directed. Renal status improve with creatinine decreasing to 1.8. Oral intake decreased. Not on IVF secondary to cardiomyopathy. On home maintenance furosemide. Lisinopril remains on hold. Liver enzymes gradually decreasing. Holding amiodarone and simvastatin. Will continue with vancomycin and ceftriaxone for antimicrobial coverage, WBC decreased to 11.8. Increase activities as somnolence improves. Transfer to medical floor as encephalopathy decreasing. 07/18/17 Respiratory status improving -continues on baseline oxygen of 3 liters. Utilizing BiPAP with sleeping and napping. Creatinine continues to improve, today down to 1.1. With resuming low-dose lisinopril 2.5 milligrams daily LFTs also continued to improve- amiodarone and simvastatin remain on hold. Continue with vancomycin and ceftriaxone for antimicrobial coverage of abdominal skin. Will restart Xarelto and stop SQ Heparin. Consult placed for PT and OT to evaluate strength and function. Patient refuse to work with therapy today. States "I'm too weak. I can't even roll over." Consultations with Dr. Rebolledo and Dr. Merchant. 07/19/17 Creatinine continues to improve 1.1-->0.8. LFTs also continue to improve-amiodarone and simvastatin remain on hold. Will have cardiology restart when they feel appropriate. facility maintenance technician reports few episodes of Vtach overnight and this am. Cardiology following. Pulmonology following - cont home trilogy at [facility], nebulizers. Pt sats mostly >95 % on 3L - wean as able keeping sats >90% Leukocytosis resolved. Ab wall cellulitis improving - will continue ceftriaxone but can stop Vancomycin. Encouraged pt to work with therapy today despite his overwhelming fatigue. Stressed to patient the importance of being up more and being mobile. Needs for acute hospitalization are decreasing-worry pt will be too debilitated to return home when that time comes. Discuss with patient about working with therapy when they come by and not refusing. Stressed need to be up and more mobile. If patient unwilling or unable to do these activities, likelihood for returning home is low. Discussed about potential for longterm care if not able to be more active and mobile. Pt reports he will work on this. 07/20/17 Creatinine and BUN have normalized. LFT's continue to improve. Per cardiology - Increase Coreg to 12.5mg BIDWM and lisinopril to 5mg daily. Resume amiodarone when LFT's normalize. Patient has shown some effort to work with therapy. Importance of working with PT/OT reiterated if pt wants to DC home. Pulmonology following - cont home trilogy at [facility], nebulizers. Pulm reports patient at baseline pulmonary status. Vanc DC'd yesterday, continues on ceftriaxone for abdominal wall cellulitis. WBC up today, but doubt r/t infection. Repeat in am. <Lee Merchant - Last Filed: 07/26/17 15:17> Exam Vital signs: Temperature 96.8 F 07/23/17 08:00 Pulse Rate 59 L 07/23/17 11:21 Respiratory Rate 18 07/23/17 11:21 Blood Pressure 136/81 07/23/17 11:21 Pulse Oximetry 94 07/23/17 12:25 Inpatient Medications: Discontinued Medications Generic Name Dose Route Start Last Admin Trade Name Freq PRN Reason Stop Dose Admin Acetazolamide 250 mg 07/21/17 09:00 07/22/17 10:13 Diamox 250 Mg PO 250 mg BID RICHARD Administration Acetazolamide 250 mg 07/23/17 09:00 07/23/17 08:15 Diamox 250 Mg PO 250 mg DAILY RICHARD Administration Albuterol/Ipratropium 3 ml 07/16/17 10:02 07/22/17 01:14 Duoneb AEROSOL 3 ml RTQID PRN Administration Amiodarone HCl 200 mg 07/16/17 12:00 07/16/17 14:36 Pacerone PO 200 mg DAILY RICHARD Administration Arformoterol Tartrate 15 mcg 07/16/17 12:00 07/23/17 06:52 Brovana Neb AEROSOL 15 mcg RTBID RICHARD Administration Bisacodyl 10 mg 07/18/17 17:02 Dulcolax RECTALLY DAILY PRN Constipation Budesonide 0.5 mg 07/16/17 12:00 07/23/17 08:07 Pulmicort Inhalation AEROSOL 0.5 mg RTBID RICHARD Administration Carvedilol 3.125 mg 07/16/17 17:30 07/17/17 09:07 Coreg PO 3.125 mg BIDWM RICHARD Administration Carvedilol 6.25 mg 07/17/17 17:30 07/20/17 09:03 Coreg PO 6.25 mg BIDWM RICHARD Administration Carvedilol 12.5 mg 07/20/17 17:30 07/22/17 10:14 Coreg PO 12.5 mg BIDWM RICHARD Administration Carvedilol 25 mg 07/22/17 12:15 Coreg PO BIDWM RICHARD Carvedilol 25 mg 07/22/17 12:30 07/23/17 08:15 Coreg PO 25 mg BIDWM RICHARD Administration Furosemide 40 mg 07/16/17 12:00 07/23/17 08:15 Lasix 40 Mg Tab PO 40 mg DAILY RICHARD Administration Gabapentin 300 mg 07/16/17 21:00 07/22/17 22:34 Neurontin PO 300 mg HS RICHARD Administration Gabapentin 200 mg 07/16/17 14:00 07/23/17 13:26 Neurontin PO 200 mg 0800,1400 RICHARD Administration Heparin Sodium (Porcine) 5,000 units 07/16/17 09:45 07/18/17 08:16 Heparin Sq SQ 5,000 units Q8HR RICHARD Administration Dextrose/Sodium Chloride 1,000 mls @ 250 mls/hr 07/15/17 18:30 07/16/17 04:50 Dextrose 5%-Normal Saline IV Not Given .Q4H RICHARD Dextrose/Sodium Chloride 1,000 mls @ 50 mls/hr 07/15/17 22:00 07/16/17 08:31 D5-1/2ns IV Infused .Q20H RICHARD Infusion Ceftriaxone Sodium 1 g/ Sodium 100 mls @ 200 mls/hr 07/15/17 22:19 07/16/17 01:04 Chloride IV 07/15/17 22:48 Infused O ONE Infusion Vancomycin HCl 2,000 mg/ 500 mls @ 250 mls/hr 07/16/17 07:10 07/16/17 10:38 Sodium Chloride IV 07/16/17 07:11 Infused O ONE Infusion Vancomycin HCl 1,000 mg/ 250 mls @ 250 mls/hr 07/16/17 08:56 Sodium Chloride IV 07/16/17 08:57 O ONE Ceftriaxone Sodium 1 g/ Sodium 100 mls @ 200 mls/hr 07/16/17 11:00 07/23/17 11:55 Chloride IV Infused Q24H RICHARD Infusion Vancomycin HCl 1,000 mg/ 250 mls @ 250 mls/hr 07/16/17 16:30 07/18/17 05:18 Sodium Chloride IV Infused Q12H RICHARD Infusion Vancomycin HCl 1,250 mg/ 250 mls @ 200 mls/hr 07/18/17 16:00 07/19/17 06:30 Sodium Chloride IV Infused Q12H RICHARD Infusion Insulin Aspart 1 - 5 unit 07/16/17 15:03 Novolog SQ SS PRN Hyperglycemia Protocol Lisinopril 2.5 mg 07/16/17 12:00 07/16/17 14:35 Prinivil PO 2.5 mg DAILY RICHARD Administration Lisinopril 2.5 mg 07/18/17 11:00 07/20/17 09:03 Prinivil PO 2.5 mg DAILY RICHARD Administration Lisinopril 5 mg 07/21/17 09:00 07/23/17 08:15 Prinivil PO 5 mg DAILY RICHARD Administration Lorazepam 2 mg 07/15/17 18:28 07/15/17 22:15 Ativan Inj IVP 07/15/17 18:29 2 mg O ONE Administration Lorazepam 0.5 mg 07/15/17 22:19 07/16/17 04:21 Ativan Inj IVP 0.5 mg Q4H PRN Administration Agitation/Restlessness Magnesium Hydroxide 30 ml 07/18/17 17:02 Mom PO DAILY PRN Constipation Metoclopramide HCl 5 mg 07/15/17 21:51 Reglan IVP Q6H PRN Morphine Sulfate 1 - 2 mg 07/15/17 21:51 Morphine Sulf 2 Mg Inj IVP Q2H PRN Pain Ondansetron HCl 4 mg 07/15/17 21:51 Zofran IVP Q6H PRN Nausea &/or vomiting Pantoprazole Sodium 40 mg 07/16/17 09:00 07/20/17 09:04 Protonix Iv IVP 40 mg DAILY RICHARD Administration Pantoprazole Sodium 40 mg 07/21/17 06:30 07/23/17 06:00 Protonix Tab PO 40 mg ACB RICHARD Administration Pharmacy Consult each 07/16/17 00:49 Pharmacy Consult - Fall Risk 07/16/17 00:50 ONE TIME ONE Rivaroxaban 20 mg 07/18/17 17:30 07/22/17 17:14 Xarelto PO 20 mg WS RICHARD Administration Sertraline HCl 50 mg 07/16/17 10:00 07/23/17 08:15 Zoloft PO 50 mg DAILY RICHARD Administration Sertraline HCl 50 mg 07/19/17 09:00 Zoloft PO DAILY RICHARD Simvastatin 20 mg 07/16/17 21:00 Zocor PO HS RICHARD Sodium Chloride 10 - 80 ml 07/15/17 18:28 07/16/17 10:43 Iv Flush IVF 40 ml PRN PRN Administration Flushing Sodium Chloride 10 - 80 ml 07/15/17 18:38 07/22/17 10:13 Iv Flush IVF 10 ml PRN PRN Administration Flushing Sodium Chloride 500 ml 07/17/17 03:45 07/17/17 04:14 Normal Saline IV 500 ml PRN PRN Administration Vancomycin HCl 1 each 07/16/17 06:22 07/16/17 08:31 Pharmacy Consult - Vancomycin 07/16/17 06:23 1 each O ONE Administration - Urinary Catheter Management Urethral Cath placed during this visit: no Results 07/23/17 03:53 07/23/17 03:53 Assessment and Plan - Assessment and Plan (1) Dilated cardiomyopathy Problem details: EF 10-15% with 3/4 diastolic dysfunction on 06/11/17 EF 30% on TTE done 10/2015; global hypokinesis and dilated LV; EF 55% 09/2016 Status: Chronic (2) Hypertension Problem details: Off all medications for > 6 months, uncontrolled Status: Chronic (3) COPD, severe Problem details: on 3L NC chronically at home Status: Chronic (4) Tobacco dependence syndrome Problem details: Ongoing, discussed cessation, unclear how much he is smoking routinely Status: Chronic (5) Congestive heart failure Problem details: Systolic Status: Acute (6) Methamphetamine intoxication Status: Acute (7) Methamphetamine substance use disorder, mild, in sustained remission, in controlled environment, abuse Status: Chronic (8) Hypoglycemia Status: Acute (9) Acute kidney injury Status: Acute (10) PAF (paroxysmal atrial fibrillation) Status: Chronic - Attestation Attestation Narrative: 07/26/17 15:17 Recommendation After examining the patient I agree with the above assessment. I am involved in the formulation of the patient's plan of care. Hospital Course Summary Disclaimer: The visit summary below is not to be considered part of the above Progress Note.
[2017-07-20] MEDS: CARVEDILOL 12.5 MG TABLET PO SCH (18:01)
[2017-07-20] MEDS: RIVAROXABAN 20 MG TABLET PO SCH (18:01)
[2017-07-20] MEDS: GABAPENTIN 300 MG CAPSULE PO SCH (21:27)
[2017-07-21] MEDS: ALBUTEROL/IPRATROPIUM 2.5mg-0.5mg/3ml NEB AEROSOL PRN (04:24)
[2017-07-21] MEDS: PANTOPRAZOLE 40 MG TABLET PO SCH (05:45)
[2017-07-21] MEDS: ARFORMOTEROL NEB 15mcg/2ml AEROSOL SCH ×2 (07:16→20:00)
[2017-07-21] MEDS: BUDESONIDE INH.SOLN 0.5mg/2ml NEB AEROSOL SCH ×2 (07:16→20:01)
[2017-07-21] MEDS: GABAPENTIN 100 MG CAPSULE PO SCH ×2 (08:17→15:31)
[2017-07-21] MEDS: CARVEDILOL 12.5 MG TABLET PO SCH ×2 (08:18→17:27)
[2017-07-21] MEDS: FUROSEMIDE 40 MG TABLET PO SCH (08:18)
[2017-07-21] MEDS: LISINOPRIL 5 MG TABLET PO SCH (08:19)
[2017-07-21] MEDS: SERTRALINE 50 MG TABLET PO SCH (08:19)
[2017-07-21] MEDS: acetaZOLAMIDE 250 MG TABLET PO SCH ×2 (09:42→20:17)
[2017-07-21] MEDS: CEFTRIAXONE 1 G in NS 100 ML IV SCH (10:50)
[2017-07-21] MEDS: SALINE FLUSH 10ml SYRINGE IVF PRN (10:51)
--- NOTE | 2017-07-21 11:34 | Progress Note ---
- Date 07/21/17 Subjective: Eating breakfast today, introduced myself, he does not want to discuss medical issues, would like to go home. Attempted to discuss f/u with physicians, medications, substance abuse issues. He became very agitated and angry, started yelling at me to "get the hell out" and stated he was "leaving AMA" and "my issues are none of your business". Asked to calm down, but as he was becoming more angry I left the room. His son was at bedside, attempted to calm his father down. Objective Vital signs: Temperature 98.5 F 07/21/17 03:50 Pulse Rate 64 07/21/17 08:00 Respiratory Rate 20 07/21/17 08:00 Blood Pressure 152/94 H 07/21/17 08:00 Pulse Oximetry 96 07/21/17 11:14 Rhythm: Normal Sinus Rhythm Height/Weight/BMI: Height 1.83 m Weight 132.5 kg Body Mass Index 39.9 - Constitutional Present: moderate distress, combative, agitated - Routine HEENT Exam Head: Present: normocephalic, atraumatic Eye: Present: EOMI, PERRL. Absent: conjunctival icterus ENT: Present: mucous membranes moist, oropharynx clear - Routine Respiratory Exam Comments: symmetrical chest rise, nonlabored, further exam deferred due to agitation - Routine Cardiovascular Exam Present: RRR. Absent: JVD - Routine Abdominal Exam Present: soft Comments: obese - Routine Extremities Exam Comments: chronic venous stasis changes BLE - Routine Skin Exam Present: dry. Absent: rash - Routine Neurological Exam Present: alert angry, agitated when asked about medical issues - Routine Psychiatric Exam Present: agitated Results - Labs CBC & Chem 7: 07/21/17 03:44 07/21/17 03:44 Microbiology Results: Microbiology 07/15/17 21:02 Peripheral/Iv Start Blood Culture - Final No Growth After 5 Days 07/16/17 12:21 Peripheral/Iv Start Blood Culture - Preliminary No Growth After 4 Days - Impressions Date of Exam: 07/18/17 Ordering Provider: David Medrano MD Type of Exam(s): XR chest 1V Reason for Exam(s): F/U Indication: F/U PROCEDURE: XR chest 1V: Encounter: Initial Comparison: July 16, 2017 Findings: New right PICC line in place with the tip projecting over the right atrium. Overlying monitoring leads. No focal consolidative pneumonia. No pneumothorax or effusion. Cardiac silhouette remains enlarged. Mediastinal contours are stable. Pulmonary vascularity is normal. Impression: Right PICC line tip projects over the right atrium. This could be retracted by approximately 3 cm to reside at the cavoatrial junction if desired. Assessment and Plan Assessment and Plan: Assessment Toxic/Metabolic encephalopathy (POA) - secondary to hypoglycemia, meth, and CO2 narcosis Acute hypoglycemia (POA) - resolved Acute methamphetamine intoxication with agitation and encephalopathy (POA) Acute Kidney Injury (POA) -resolved Leukocytosis (POA) Elevated Lactate (POA) - likely secondary to cardiomyopathy Chronic systolic CHF from [facility] VAL[facility]IE Chronic hypoxic/hypercapnic respiratory failure - Trilogy vent at home, 3L during day COPD - on chronic oxygen at home 3 L H/O aflutter Hyperbilirubinemia and elevated liver enzymes - likely passive congestion of liver with medication effect Possible acute/recurrent cellulitis of abdominal wall - history of MRSA HLP Stage III CKD Tinea of skin folds Depression/Anxiety Tobacco dependency Morbid obesity Plan Continue coreg and lisinopril at the doses increased on 07/19 Resume amiodarone today Continue home trilogy and nebulized treatments per pulm recommendations Add diamox 250 mg BID today given rising bicarb and monitor Continue PT Continue rocephin for abdominal wall cellulitis and monitor CBC I am not comfortable discharging this medically complex and noncompliant patient without having his outpatient f/u plan fully established and plan for ongoing therapy. He also had substance abuse issues that have not been addressed and continued labile moods. He has not been up out of bed as best I can tell. I have let him know that he will need to work on getting out of bed and working with PT. If discharging AMA, I have outlined his risk including risk of further decompensation of chronic medical conditions and . Discussed with nursing staff. DVT Prophylaxis: SCD's GI Prophylaxis: Protonix Resuscitation Status: Full Code - Physician Narrative Narrative: Date: 07/21/17 Time: 1131 Hospital Course Summary Disclaimer: The visit summary below is not to be considered part of the above Progress Note. Hospital Course: 07/15/17 Admission - CCU Check ABG R/O AMI w serial enzymes Ativan PRN and restraints for patient and staff safety IV Rocephin x 1 for abd wall cellulitis, start vanco in AM when better IV access myrtle, asked nursing to cassandra cellulitis w line Get off iv fluids fouzia with recent CHF issues Nebs PRN, no wheezing noted and minimal O2 requirements at this time Follow labs, check liver panel in AM and abd sono Critically ill: Guarded prognosis Care to return to Dr Rueda at time of discharger from [facility]. 07/16/17 Acute hypoglycemia - Could be toxic effects of meth, does not have any insulin at home. Currently on D5 half normal saline at 50 mls per hour-dc and follow blood sugars Acute methamphetamine intoxication with agitation and encephalopathy -appears to be improving, still a bit agitated. Ativan PRN. Remove four- point restraints when he can be trusted not to take his BiPAP off Chronic systolic CHF from NICM - EKG looks unchanged, chest x-ray stable at this point Dr. Merchant consulted Resume Coreg. Holding MANI I due to MARGI VALARIE - requiring BiPAP to maintain saturations H/O aflutter Hold amiodarone for now due to elevated LFTs - In SR at present Hold Xarelto for now COPD - on chronic oxygen at home [address] Rebolledo consulted Morbid obesity Acute Renal failure -will repeat labs this afternoon, poor urine output Hyperbilirubinemia and elevated liver enzymes - will repeat labs in follow, Bili trending down, AST/ALT trending up -Hepatitis panel pending -Hold amiodarone for now Possible acute/ recurrent cellulitis - history of MRSA Vancomycin started, pharm consult for dosing - Rocephin IV HLP - Holding statin due to elevated LFTs Possible acute severe sepsis (lactate > 2, cellulitis) Present on admit - Repeat lactate normal Will consult wound and skin Nystatin for groin folds 07/17/17 Blood sugars improved, encephalopathy improving but patient still very somnolent. Minimize benzodiazepines and narcotics. Last lorazepam yesterday am. Respiratory status improving - maintaining saturation on baseline 3L. Wearing BiPAP as directed. Renal status improve with creatinine decreasing to 1.8. Oral intake decreased. Not on IVF secondary to cardiomyopathy. On home maintenance furosemide. Lisinopril remains on hold. Liver enzymes gradually decreasing. Holding amiodarone and simvastatin. Will continue with vancomycin and ceftriaxone for antimicrobial coverage, WBC decreased to 11.8. Increase activities as somnolence improves. Transfer to medical floor as encephalopathy decreasing. 07/18/17 Respiratory status improving -continues on baseline oxygen of 3 liters. Utilizing BiPAP with sleeping and napping. Creatinine continues to improve, today down to 1.1. With resuming low-dose lisinopril 2.5 milligrams daily LFTs also continued to improve- amiodarone and simvastatin remain on hold. Continue with vancomycin and ceftriaxone for antimicrobial coverage of abdominal skin. Will restart Xarelto and stop SQ Heparin. Consult placed for PT and OT to evaluate strength and function. Patient refuse to work with therapy today. States "I'm too weak. I can't even roll over." Consultations with Dr. Rebolledo and Dr. Merchant. 07/19/17 Creatinine continues to improve 1.1-->0.8. LFTs also continue to improve-amiodarone and simvastatin remain on hold. Will have cardiology restart when they feel appropriate. special equipment technician reports few episodes of Vtach overnight and this am. Cardiology following. Pulmonology following - cont home trilogy at [facility], nebulizers. Pt sats mostly >95 % on 3L - wean as able keeping sats >90% Leukocytosis resolved. Ab wall cellulitis improving - will continue ceftriaxone but can stop Vancomycin. Encouraged pt to work with therapy today despite his overwhelming fatigue. Stressed to patient the importance of being up more and being mobile. Needs for acute hospitalization are decreasing-worry pt will be too debilitated to return home when that time comes. Discuss with patient about working with therapy when they come by and not refusing. Stressed need to be up and more mobile. If patient unwilling or unable to do these activities, likelihood for returning home is low. Discussed about potential for skilled nursing care if not able to be more active and mobile. Pt reports he will work on this. 07/20/17 Creatinine and BUN have normalized. LFT's continue to improve. Per cardiology - Increase Coreg to 12.5mg BIDWM and lisinopril to 5mg daily. Resume amiodarone when LFT's normalize. Patient has shown some effort to work with therapy. Importance of working with PT/OT reiterated if pt wants to DC home. Pulmonology following - cont home trilogy at [facility], nebulizers. Pulm reports patient at baseline pulmonary status. Vanc DC'd yesterday, continues on ceftriaxone for abdominal wall cellulitis. WBC up today, but doubt r/t infection. Repeat in am.
--- NOTE | 2017-07-21 12:58 | Pulmonology Progress Note ---
Subjective Principal diagnosis: CM, CHF Interval history: Pt in bed resting on his trilogy vent, wakes to voice. No issues noted and no c/ o SOB or cough. Exam Vital signs: Temperature 98.5 F 07/21/17 03:50 Pulse Rate 64 07/21/17 08:00 Respiratory Rate 20 07/21/17 08:00 Blood Pressure 152/94 H 07/21/17 08:00 Pulse Oximetry 96 07/21/17 11:14 Inpatient Medications: Generic Name Dose Route Start Last Admin Trade Name Freq PRN Reason Stop Dose Admin Acetazolamide 250 mg 07/21/17 09:00 07/21/17 09:42 Diamox 250 Mg PO 250 mg BID RICHARD Administration Albuterol/Ipratropium 3 ml 07/16/17 10:02 07/21/17 04:24 Duoneb AEROSOL 3 ml RTQID PRN Administration Arformoterol Tartrate 15 mcg 07/16/17 12:00 07/21/17 07:16 Brovana Neb AEROSOL 15 mcg RTBID RICHARD Administration Bisacodyl 10 mg 07/18/17 17:02 Dulcolax RECTALLY DAILY PRN Constipation Budesonide 0.5 mg 07/16/17 12:00 07/21/17 07:16 Pulmicort Inhalation AEROSOL 0.5 mg RTBID RICHARD Administration Carvedilol 12.5 mg 07/20/17 17:30 07/21/17 08:18 Coreg PO 12.5 mg BIDWM RICHARD Administration Furosemide 40 mg 07/16/17 12:00 07/21/17 08:18 Lasix 40 Mg Tab PO 40 mg DAILY RICHARD Administration Gabapentin 300 mg 07/16/17 21:00 07/20/17 21:27 Neurontin PO 300 mg HS RICHARD Administration Gabapentin 200 mg 07/16/17 14:00 07/21/17 08:17 Neurontin PO 200 mg 0800,1400 RICHARD Administration Ceftriaxone Sodium 1 g/ Sodium 100 mls @ 200 mls/hr 07/16/17 11:00 07/21/17 11:30 Chloride IV Infused Q24H RICHARD Infusion Insulin Aspart 1 - 5 unit 07/16/17 15:03 Novolog SQ SS PRN Hyperglycemia Protocol Lisinopril 5 mg 07/21/17 09:00 07/21/17 08:19 Prinivil PO 5 mg DAILY RICHARD Administration Lorazepam 0.5 mg 07/15/17 22:19 07/16/17 04:21 Ativan Inj IVP 0.5 mg Q4H PRN Administration Agitation/Restlessness Magnesium Hydroxide 30 ml 07/18/17 17:02 Mom PO DAILY PRN Constipation Ondansetron HCl 4 mg 07/15/17 21:51 Zofran IVP Q6H PRN Nausea &/or vomiting Pantoprazole Sodium 40 mg 07/21/17 06:30 07/21/17 05:45 Protonix Tab PO 40 mg ACB RICHARD Administration Rivaroxaban 20 mg 07/18/17 17:30 07/20/17 18:01 Xarelto PO 20 mg WS RICHARD Administration Sertraline HCl 50 mg 07/16/17 10:00 07/21/17 08:19 Zoloft PO 50 mg DAILY RICHARD Administration Sodium Chloride 10 - 80 ml 07/15/17 18:38 07/21/17 10:51 Iv Flush IVF 10 ml PRN PRN Administration Flushing Sodium Chloride 500 ml 07/17/17 03:45 07/17/17 04:14 Normal Saline IV 500 ml PRN PRN Administration Discontinued Medications Generic Name Dose Route Start Last Admin Trade Name Freq PRN Reason Stop Dose Admin Amiodarone HCl 200 mg 07/16/17 12:00 07/16/17 14:36 Pacerone PO 200 mg DAILY RICHARD Administration Carvedilol 3.125 mg 07/16/17 17:30 07/17/17 09:07 Coreg PO 3.125 mg BIDWM RICHARD Administration Carvedilol 6.25 mg 07/17/17 17:30 07/20/17 09:03 Coreg PO 6.25 mg BIDWM RICHARD Administration Heparin Sodium (Porcine) 5,000 units 07/16/17 09:45 07/18/17 08:16 Heparin Sq SQ 5,000 units Q8HR RICHARD Administration Dextrose/Sodium Chloride 1,000 mls @ 250 mls/hr 07/15/17 18:30 07/16/17 04:50 Dextrose 5%-Normal Saline IV Not Given .Q4H RICHARD Dextrose/Sodium Chloride 1,000 mls @ 50 mls/hr 07/15/17 22:00 07/16/17 08:31 D5-1/2ns IV Infused .Q20H RICHARD Infusion Ceftriaxone Sodium 1 g/ Sodium 100 mls @ 200 mls/hr 07/15/17 22:19 07/16/17 01:04 Chloride IV 07/15/17 22:48 Infused O ONE Infusion Vancomycin HCl 2,000 mg/ 500 mls @ 250 mls/hr 07/16/17 07:10 07/16/17 10:38 Sodium Chloride IV 07/16/17 07:11 Infused O ONE Infusion Vancomycin HCl 1,000 mg/ 250 mls @ 250 mls/hr 07/16/17 08:56 Sodium Chloride IV 07/16/17 08:57 O ONE Vancomycin HCl 1,000 mg/ 250 mls @ 250 mls/hr 07/16/17 16:30 07/18/17 05:18 Sodium Chloride IV Infused Q12H RICHARD Infusion Vancomycin HCl 1,250 mg/ 250 mls @ 200 mls/hr 07/18/17 16:00 07/19/17 06:30 Sodium Chloride IV Infused Q12H RICHARD Infusion Lisinopril 2.5 mg 07/16/17 12:00 07/16/17 14:35 Prinivil PO 2.5 mg DAILY RICHARD Administration Lisinopril 2.5 mg 07/18/17 11:00 07/20/17 09:03 Prinivil PO 2.5 mg DAILY RICHARD Administration Lorazepam 2 mg 07/15/17 18:28 07/15/17 22:15 Ativan Inj IVP 07/15/17 18:29 2 mg O ONE Administration Metoclopramide HCl 5 mg 07/15/17 21:51 Reglan IVP Q6H PRN Morphine Sulfate 1 - 2 mg 07/15/17 21:51 Morphine Sulf 2 Mg Inj IVP Q2H PRN Pain Pantoprazole Sodium 40 mg 07/16/17 09:00 07/20/17 09:04 Protonix Iv IVP 40 mg DAILY RICHARD Administration Pharmacy Consult each 07/16/17 00:49 Pharmacy Consult - Fall Risk 07/16/17 00:50 ONE TIME ONE Sertraline HCl 50 mg 07/19/17 09:00 Zoloft PO DAILY RICHARD Simvastatin 20 mg 07/16/17 21:00 Zocor PO HS RICHARD Sodium Chloride 10 - 80 ml 07/15/17 18:28 07/16/17 10:43 Iv Flush IVF 40 ml PRN PRN Administration Flushing Vancomycin HCl 1 each 07/16/17 06:22 07/16/17 08:31 Pharmacy Consult - Vancomycin 07/16/17 06:23 1 each O ONE Administration - Constitutional no acute distress, obese, cooperative - Routine HEENT Exam Head: Present: normocephalic, atraumatic Eye: Present: EOMI, PERRL - Routine Neck Exam Present: supple, full ROM, trachea midline - Routine Respiratory Exam Present: decreased breath sounds. Absent: accessory muscle use, patient mechanically ventilated - Routine Cardiovascular Exam Present: RRR, S1, S2, no murmur - Routine Abdominal Exam Present: soft, normoactive bowel sounds - Routine Extremities Exam Present: no edema, non tender, full ROM. Absent: cyanosis, clubbing - Routine Back/Spine/Pelvis Exam Back/Spine: Present: full ROM - Routine Skin Exam Present: intact, dry - Routine Neurological Exam Present: alert, oriented X3, CN II-XII intact - Routine Psychiatric Exam Present: normal affect, cooperative - Urinary Catheter Management Urethral Cath placed during this visit: yes, but has since been removed by the nurse Insertion date: 07/15/17 Insertion time: 22:45 Removal date: 07/19/17 Removal time: 11:30 Results - Laboratory Findings Laboratory: Laboratory Results - last 48 hr 07/20/17 07/20/17 07/21/17 04:42 04:42 03:44 WBC 12.0 H D 9.8 RBC 4.69 4.41 L Hgb 12.8 L 11.8 L Hct 43.4 41.0 MCV 92.5 93.0 MCH 27.3 26.8 MCHC 29.5 L 28.8 L RDW Std Deviation 61.9 H 61.7 H Plt Count 118 L 111 L MPV 10.9 10.7 Immature Gran % (Auto) 0.3 0.1 Neut % (Auto) 79.7 H 78.2 H Lymph % (Auto) 9.3 L 10.0 L [place] % (Auto) 9.0 9.6 H Eos % (Auto) 1.5 1.8 Baso % (Auto) 0.2 0.3 Neut # (Auto) 9.6 H 7.6 Lymph # (Auto) 1.1 1.0 [place] # (Auto) 1.1 H 0.9 H Eos # (Auto) 0.2 0.2 Baso # (Auto) 0.0 0.0 Abs Immat Gran (auto) 0.04 H 0.01 Turbidity < 20 Sodium 145 H Potassium 4.2 Chloride 98 Carbon Dioxide 39 H Anion Gap 8 BUN 17.0 Creatinine 0.8 GFR Calculation 102 BUN/Creatinine Ratio 21 Glucose 122 H Calculated Osmolality 282 H Calcium 8.6 Total Bilirubin 0.80 Icterus Index < 2 AST 153 H ALT 230 H Alkaline Phosphatase 113 Total Protein 7.0 Albumin 3.6 Globulin 3.4 Albumin/Globulin Ratio 1.1 Specimen Hemolysis < 15 07/21/17 03:44 WBC RBC Hgb Hct MCV MCH MCHC RDW Std Deviation Plt Count MPV Immature Gran % (Auto) Neut % (Auto) Lymph % (Auto) [place] % (Auto) Eos % (Auto) Baso % (Auto) Neut # (Auto) Lymph # (Auto) [place] # (Auto) Eos # (Auto) Baso # (Auto) Abs Immat Gran (auto) Turbidity < 20 Sodium 144 Potassium 3.9 Chloride 99 Carbon Dioxide 40 H Anion Gap 5 BUN 11.0 Creatinine 0.7 L GFR Calculation 118 BUN/Creatinine Ratio 16 Glucose 119 H Calculated Osmolality 277 Calcium 8.6 Total Bilirubin 0.70 Icterus Index < 2 AST 90 H ALT 170 H Alkaline Phosphatase 104 Total Protein 6.3 Albumin 3.3 L Globulin 3.0 Albumin/Globulin Ratio 1.1 Specimen Hemolysis < 15 Assessment and Plan - Assessment and Plan Acute on Chronic Hypoxic Hypercapnic Respiratory Failure COPD - unknown severity, was to be on BT's at home but unsure if he has been using his meds was supposed to be on budesonde BID and brovana BID with albuterol neb 1-2 times a day Methamphetamine use Acute on Chronic systolic HF/non ischemic cardiomyopathy, current EF less then 10% MARGI Atrial fibrillation hypoglycemia Abdominal cellulitis Plan: Pt currently on his home trilogy, otherwise on 3L per NC. Will continue his BT' s with budesonde BID, brovana BID with albuterol neb prn. No new CXR, on coreg and diuresis for CM/CHF. Cr improving along with liver enzymes. WBC normal, afebrile, abdominal cellulitis noted on ceftriaxone per primary. - Time Spent With Patient Total time spent is greater than 50% in coordination of care (as documented) at patient's floor/unit and/or counseling patient: less than 15 minutes
[2017-07-21] MEDS: RIVAROXABAN 20 MG TABLET PO SCH (17:27)
[2017-07-21] MEDS: GABAPENTIN 300 MG CAPSULE PO SCH (20:17)
[2017-07-22] MEDS: ALBUTEROL/IPRATROPIUM 2.5mg-0.5mg/3ml NEB AEROSOL PRN (01:14)
[2017-07-22] MEDS: PANTOPRAZOLE 40 MG TABLET PO SCH (06:25)
[2017-07-22] MEDS: LISINOPRIL 5 MG TABLET PO SCH (10:13)
[2017-07-22] MEDS: SALINE FLUSH 10ml SYRINGE IVF PRN (10:13)
[2017-07-22] MEDS: FUROSEMIDE 40 MG TABLET PO SCH (10:13)
[2017-07-22] MEDS: SERTRALINE 50 MG TABLET PO SCH (10:13)
[2017-07-22] MEDS: CEFTRIAXONE 1 G in NS 100 ML IV SCH (10:13)
[2017-07-22] MEDS: acetaZOLAMIDE 250 MG TABLET PO SCH (10:13)
[2017-07-22] MEDS: CARVEDILOL 12.5 MG TABLET PO SCH (10:14)
[2017-07-22] MEDS: GABAPENTIN 100 MG CAPSULE PO SCH ×2 (10:14→13:03)
[2017-07-22] MEDS: BUDESONIDE INH.SOLN 0.5mg/2ml NEB AEROSOL SCH (10:24)
[2017-07-22] MEDS: ARFORMOTEROL NEB 15mcg/2ml AEROSOL SCH (10:24)
[2017-07-22] MEDS ORDERED: CARVEDILOL 12.5 MG TABLET PO SCH (12:15)
[2017-07-22] MEDS: CARVEDILOL 25 MG TABLET PO SCH ×2 (13:03→17:14)
--- NOTE | 2017-07-22 15:51 | Progress Note ---
- Date 07/22/17 Subjective: Much more calm today. Resting on his trilogy currently, does not want to get OOB today. Appetite okay overall. Son at bedside and aware of plans to possibly go home tomorrow when outpatient f /u and home help can be arranged. Initially not willing to have home health but now willing to give it a try for med management, f/u with weights, blood sugars, etc. Objective Vital signs: Temperature 95.9 F L 07/22/17 15:04 Pulse Rate 64 07/22/17 15:04 Respiratory Rate 18 07/22/17 15:04 Blood Pressure 174/103 H 07/22/17 15:04 Pulse Oximetry 97 07/22/17 15:04 Rhythm: Normal Sinus Rhythm Height/Weight/BMI: Height 1.83 m Weight 131.3 kg Body Mass Index 39.9 - Constitutional Present: no acute distress - Routine HEENT Exam Head: Present: normocephalic, atraumatic Eye: Present: PERRL. Absent: conjunctival icterus ENT: Present: mucous membranes moist, oropharynx clear - Routine Respiratory Exam Absent: rales, crackles Comments: bipap artifact - Routine Cardiovascular Exam Present: RRR. Absent: no murmur, rubs - Routine Abdominal Exam Present: soft, non distended, non tender Comments: obese - Routine Extremities Exam Present: edema (trace BLE ), normal capillary refill - Routine Musculoskeletal Exam Musculoskeletal: Present: no erythema. Absent: joint swelling - Routine Skin Exam Present: dry, warm. Absent: rash - Routine Neurological Exam Present: alert, oriented X3, moving all extremities, vision grossly intact, hearing grossly intact Results - Labs CBC & Chem 7: 07/22/17 03:58 07/22/17 03:58 Microbiology Results: Microbiology 07/16/17 12:21 Peripheral/Iv Start Blood Culture - Final No Growth After 5 Days 07/15/17 21:02 Peripheral/Iv Start Blood Culture - Final No Growth After 5 Days Assessment and Plan Assessment and Plan: Assessment Toxic/Metabolic encephalopathy (POA) - secondary to hypoglycemia, meth, and CO2 narcosis, improved but at high risk for recurrence Acute hypoglycemia (POA) - resolved Acute methamphetamine intoxication with agitation and encephalopathy (POA) - resolved, does not want to discuss cessation Acute Kidney Injury (POA) -resolved Leukocytosis (POA) Elevated Lactate (POA) - likely secondary to cardiomyopathy Chronic systolic CHF from [facility] VALARIE Chronic hypoxic/hypercapnic respiratory failure - Trilogy vent at home, 3L during day, near baseline COPD - on chronic oxygen at home 3 L H/O aflutter Hyperbilirubinemia and elevated liver enzymes - likely passive congestion of liver with medication effect Possible acute/recurrent cellulitis of abdominal wall - history of MRSA HLP Stage III CKD Tinea of skin folds Depression/Anxiety Tobacco dependency Morbid obesity Normocytic anemia, Hb 11.2 Hypophosphatemia; phos 2.3 Plan Continue carvedilol and lisinopril for hypertension, will increase carvedilol to 25 BID and monitor HR and BP Continue amiodarone and monitor LFTs outpatient Continue home trilogy and nebulized treatments per pulm recommendations Decrease diamox to 250 mg once daily and monitor bicarb levels Continue PT as ordered; will need to discuss DC planning tomorrow, he prefers to DC home and is not agreeable to any facility care Continue rocephin for abdominal wall cellulitis and monitor CBC Encouraged ambulation TID with 02 support Encouraged increased intake and high phos diet Assess iron stores if Hb falls < 10 given CKD; may benefit from epo Discussed with nursing staff and with son at bedside. Will work toward possible DC tomorrow if able to make outpatient arrangements and he is stable. DVT Prophylaxis: Xarelto Resuscitation Status: Full Code - Physician Narrative Narrative: Date: 07/22/17 Time: 1548 Hospital Course Summary Disclaimer: The visit summary below is not to be considered part of the above Progress Note. Hospital Course: 07/15/17 Admission - CCU Check ABG R/O AMI w serial enzymes Ativan PRN and restraints for patient and staff safety IV Rocephin x 1 for abd wall cellulitis, start vanco in AM when better IV access myrtle, asked nursing to cassandra cellulitis w line Get off iv fluids fouzia with recent CHF issues Nebs PRN, no wheezing noted and minimal O2 requirements at this time Follow labs, check liver panel in AM and abd sono Critically ill: Guarded prognosis Care to return to Dr Rueda at [place] of [place] [facility] [place] 07/16/17 Acute hypoglycemia - Could be toxic effects of meth, does not have any insulin at home. Currently on D5 half normal saline at 50 mls per hour-dc and follow blood sugars Acute methamphetamine intoxication with agitation and encephalopathy -appears to be improving, still a bit agitated. Ativan PRN. Remove four- point restraints when he can be trusted not to take his BiPAP off Chronic systolic CHF from NICM - EKG looks unchanged, chest x-ray stable at this point Dr. Merchant consulted Resume Coreg. Holding MANI I due to MARGI VALARIE - requiring BiPAP to maintain saturations H/O aflutter Hold amiodarone for now due to elevated LFTs - In SR at present Hold Xarelto for now COPD - on chronic oxygen at home [address] Rebolledo consulted Morbid obesity Acute Renal failure -will repeat labs this afternoon, poor urine output Hyperbilirubinemia and elevated liver enzymes - will repeat labs in follow, Bili trending down, AST/ALT trending up -Hepatitis panel pending -Hold amiodarone for now Possible acute/ recurrent cellulitis - history of MRSA Vancomycin started, pharm consult for dosing - Rocephin IV HLP - Holding statin due to elevated LFTs Possible acute severe sepsis (lactate > 2, cellulitis) Present on admit - Repeat lactate normal Will consult wound and skin Nystatin for groin folds 07/17/17 Blood sugars improved, encephalopathy improving but patient still very somnolent. Minimize benzodiazepines and narcotics. Last lorazepam yesterday am. Respiratory status improving - maintaining saturation on baseline 3L. Wearing BiPAP as directed. Renal status improve with creatinine decreasing to 1.8. Oral intake decreased. Not on IVF secondary to cardiomyopathy. On home maintenance furosemide. Lisinopril remains on hold. Liver enzymes gradually decreasing. Holding amiodarone and simvastatin. Will continue with vancomycin and ceftriaxone for antimicrobial coverage, WBC decreased to 11.8. Increase activities as somnolence improves. Transfer to medical floor as encephalopathy decreasing. 07/18/17 Respiratory status improving -continues on baseline oxygen of 3 liters. Utilizing BiPAP with sleeping and napping. Creatinine continues to improve, today down to 1.1. With resuming low-dose lisinopril 2.5 milligrams daily LFTs also continued to improve- amiodarone and simvastatin remain on hold. Continue with vancomycin and ceftriaxone for antimicrobial coverage of abdominal skin. Will restart Xarelto and stop SQ Heparin. Consult placed for PT and OT to evaluate strength and function. Patient refuse to work with therapy today. States "I'm too weak. I can't even roll over." Consultations with Dr. Rebolledo and Dr. Merchant. 07/19/17 Creatinine continues to improve 1.1-->0.8. LFTs also continue to improve-amiodarone and simvastatin remain on hold. Will have cardiology restart when they feel appropriate. technical writing lead/mgr reports few episodes of Vtach overnight and this am. Cardiology following. Pulmonology following - cont home trilogy at [facility], nebulizers. Pt sats mostly >95 % on 3L - wean as able keeping sats >90% Leukocytosis resolved. Ab wall cellulitis improving - will continue ceftriaxone but can stop Vancomycin. Encouraged pt to work with therapy today despite his overwhelming fatigue. Stressed to patient the importance of being up more and being mobile. Needs for acute hospitalization are decreasing-worry pt will be too debilitated to return home when that time comes. Discuss with patient about working with therapy when they come by and not refusing. Stressed need to be up and more mobile. If patient unwilling or unable to do these activities, likelihood for returning home is low. Discussed about potential for senior living care if not able to be more active and mobile. Pt reports he will work on this. 07/20/17 Creatinine and BUN have normalized. LFT's continue to improve. Per cardiology - Increase Coreg to 12.5mg BIDWM and lisinopril to 5mg daily. Resume amiodarone when LFT's normalize. Patient has shown some effort to work with therapy. Importance of working with PT/OT reiterated if pt wants to DC home. Pulmonology following - cont home trilogy at [facility], nebulizers. Pulm reports patient at baseline pulmonary status. Vanc DC'd yesterday, continues on ceftriaxone for abdominal wall cellulitis. WBC up today, but doubt r/t infection. Repeat in am. 07/22/17 Continue carvedilol and lisinopril for hypertension, will increase carvedilol to 25 BID and monitor HR and BP Continue amiodarone and monitor LFTs outpatient Continue home trilogy and nebulized treatments per pulm recommendations Decrease diamox to 250 mg once daily and monitor bicarb levels Continue PT as ordered; will need to discuss DC planning tomorrow, he prefers to DC home and is not agreeable to any facility care Continue rocephin for abdominal wall cellulitis and monitor CBC Encouraged ambulation TID with 02 support Encouraged increased intake and high phos diet Assess iron stores if Hb falls < 10 given CKD; may benefit from epo
[2017-07-22] MEDS: RIVAROXABAN 20 MG TABLET PO SCH (17:14)
[2017-07-22] MEDS: GABAPENTIN 300 MG CAPSULE PO SCH (22:34)
[2017-07-23] MEDS: ARFORMOTEROL NEB 15mcg/2ml AEROSOL SCH ×2 (00:45→06:52)
[2017-07-23] MEDS: BUDESONIDE INH.SOLN 0.5mg/2ml NEB AEROSOL SCH ×2 (00:45→08:07)
[2017-07-23 01:10] VITALS: TEMP 96.8
[2017-07-23] MEDS: PANTOPRAZOLE 40 MG TABLET PO SCH (06:00)
[2017-07-23 08:10] VITALS: RESP 18
[2017-07-23] MEDS: FUROSEMIDE 40 MG TABLET PO SCH (08:15)
[2017-07-23] MEDS: SERTRALINE 50 MG TABLET PO SCH (08:15)
[2017-07-23] MEDS: GABAPENTIN 100 MG CAPSULE PO SCH ×2 (08:15→13:26)
[2017-07-23] MEDS: LISINOPRIL 5 MG TABLET PO SCH (08:15)
[2017-07-23] MEDS: CARVEDILOL 25 MG TABLET PO SCH (08:15)
[2017-07-23] MEDS ORDERED: acetaZOLAMIDE 250 MG TABLET PO SCH (09:00)
--- NOTE | 2017-07-23 09:43 | Pulmonology Progress Note ---
Subjective Principal diagnosis: CM, CHF Interval history: Pt in bed resting on his trilogy vent, wakes to voice. No issues noted and no c/ o SOB or cough. Exam Vital signs: Temperature 96.8 F 07/23/17 08:00 Pulse Rate 66 07/23/17 08:00 Respiratory Rate 18 07/23/17 08:07 Blood Pressure 153/93 H 07/23/17 08:00 Pulse Oximetry 93 07/23/17 08:07 Inpatient Medications: Generic Name Dose Route Start Last Admin Trade Name Freq PRN Reason Stop Dose Admin Acetazolamide 250 mg 07/23/17 09:00 07/23/17 08:15 Diamox 250 Mg PO 250 mg DAILY RICHARD Administration Albuterol/Ipratropium 3 ml 07/16/17 10:02 07/22/17 01:14 Duoneb AEROSOL 3 ml RTQID PRN Administration Arformoterol Tartrate 15 mcg 07/16/17 12:00 07/23/17 06:52 Brovana Neb AEROSOL 15 mcg RTBID RICHARD Administration Bisacodyl 10 mg 07/18/17 17:02 Dulcolax RECTALLY DAILY PRN Constipation Budesonide 0.5 mg 07/16/17 12:00 07/23/17 08:07 Pulmicort Inhalation AEROSOL 0.5 mg RTBID RICHARD Administration Carvedilol 25 mg 07/22/17 12:30 07/23/17 08:15 Coreg PO 25 mg BIDWM RICHARD Administration Furosemide 40 mg 07/16/17 12:00 07/23/17 08:15 Lasix 40 Mg Tab PO 40 mg DAILY RICHARD Administration Gabapentin 300 mg 07/16/17 21:00 07/22/17 22:34 Neurontin PO 300 mg HS RICHARD Administration Gabapentin 200 mg 07/16/17 14:00 07/23/17 08:15 Neurontin PO 200 mg 0800,1400 RICHARD Administration Ceftriaxone Sodium 1 g/ Sodium 100 mls @ 200 mls/hr 07/16/17 11:00 07/22/17 11:00 Chloride IV Infused Q24H RICHARD Infusion Insulin Aspart 1 - 5 unit 07/16/17 15:03 Novolog SQ SS PRN Hyperglycemia Protocol Lisinopril 5 mg 07/21/17 09:00 07/23/17 08:15 Prinivil PO 5 mg DAILY RICHARD Administration Lorazepam 0.5 mg 07/15/17 22:19 07/16/17 04:21 Ativan Inj IVP 0.5 mg Q4H PRN Administration Agitation/Restlessness Magnesium Hydroxide 30 ml 07/18/17 17:02 Mom PO DAILY PRN Constipation Ondansetron HCl 4 mg 07/15/17 21:51 Zofran IVP Q6H PRN Nausea &/or vomiting Pantoprazole Sodium 40 mg 07/21/17 06:30 07/23/17 06:00 Protonix Tab PO 40 mg ACB RICHARD Administration Rivaroxaban 20 mg 07/18/17 17:30 07/22/17 17:14 Xarelto PO 20 mg WS RICHARD Administration Sertraline HCl 50 mg 07/16/17 10:00 07/23/17 08:15 Zoloft PO 50 mg DAILY RICHARD Administration Sodium Chloride 10 - 80 ml 07/15/17 18:38 07/22/17 10:13 Iv Flush IVF 10 ml PRN PRN Administration Flushing Sodium Chloride 500 ml 07/17/17 03:45 07/17/17 04:14 Normal Saline IV 500 ml PRN PRN Administration Discontinued Medications Generic Name Dose Route Start Last Admin Trade Name Freq PRN Reason Stop Dose Admin Acetazolamide 250 mg 07/21/17 09:00 07/22/17 10:13 Diamox 250 Mg PO 250 mg BID RICHARD Administration Amiodarone HCl 200 mg 07/16/17 12:00 07/16/17 14:36 Pacerone PO 200 mg DAILY [facility] Administration Carvedilol 3.125 mg 07/16/17 17:30 07/17/17 09:07 Coreg PO 3.125 mg BIDWM [facility] Administration Carvedilol 6.25 mg 07/17/17 17:30 07/20/17 09:03 Coreg PO 6.25 mg BIDWM [facility] Administration Carvedilol 12.5 mg 07/20/17 17:30 07/22/17 10:14 Coreg PO 12.5 mg BIDWM [facility] Administration Carvedilol 25 mg 07/22/17 12:15 Coreg PO BIDWM RICHARD Heparin Sodium (Porcine) 5,000 units 07/16/17 09:45 07/18/17 08:16 Heparin Sq SQ 5,000 units Q8HR RICHARD Administration Dextrose/Sodium Chloride 1,000 mls @ 250 mls/hr 07/15/17 18:30 07/16/17 04:50 Dextrose 5%-Normal Saline IV Not Given .Q4H RICHARD Dextrose/Sodium Chloride 1,000 mls @ 50 mls/hr 07/15/17 22:00 07/16/17 08:31 D5-1/2ns IV Infused .Q20H RICHARD Infusion Ceftriaxone Sodium 1 g/ Sodium 100 mls @ 200 mls/hr 07/15/17 22:19 07/16/17 01:04 Chloride IV 07/15/17 22:48 Infused O ONE Infusion Vancomycin HCl 2,000 mg/ 500 mls @ 250 mls/hr 07/16/17 07:10 07/16/17 10:38 Sodium Chloride IV 07/16/17 07:11 Infused O ONE Infusion Vancomycin HCl 1,000 mg/ 250 mls @ 250 mls/hr 07/16/17 08:56 Sodium Chloride IV 07/16/17 08:57 O ONE Vancomycin HCl 1,000 mg/ 250 mls @ 250 mls/hr 07/16/17 16:30 07/18/17 05:18 Sodium Chloride IV Infused Q12H RICHARD Infusion Vancomycin HCl 1,250 mg/ 250 mls @ 200 mls/hr 07/18/17 16:00 07/19/17 06:30 Sodium Chloride IV Infused Q12H RICHARD Infusion Lisinopril 2.5 mg 07/16/17 12:00 07/16/17 14:35 Prinivil PO 2.5 mg DAILY RICHARD Administration Lisinopril 2.5 mg 07/18/17 11:00 07/20/17 09:03 Prinivil PO 2.5 mg DAILY RICHARD Administration Lorazepam 2 mg 07/15/17 18:28 07/15/17 22:15 Ativan Inj IVP 07/15/17 18:29 2 mg O ONE Administration Metoclopramide HCl 5 mg 07/15/17 21:51 Reglan IVP Q6H PRN Morphine Sulfate 1 - 2 mg 07/15/17 21:51 Morphine Sulf 2 Mg Inj IVP Q2H PRN Pain Pantoprazole Sodium 40 mg 07/16/17 09:00 07/20/17 09:04 Protonix Iv IVP 40 mg DAILY RICHARD Administration Pharmacy Consult each 07/16/17 00:49 Pharmacy Consult - Fall Risk 07/16/17 00:50 ONE TIME ONE Sertraline HCl 50 mg 07/19/17 09:00 Zoloft PO DAILY RICHARD Simvastatin 20 mg 07/16/17 21:00 Zocor PO HS RICHARD Sodium Chloride 10 - 80 ml 07/15/17 18:28 07/16/17 10:43 Iv Flush IVF 40 ml PRN PRN Administration Flushing Vancomycin HCl 1 each 07/16/17 06:22 07/16/17 08:31 Pharmacy Consult - Vancomycin 07/16/17 06:23 1 each O ONE Administration - Constitutional no acute distress, obese, cooperative - Routine HEENT Exam Head: Present: normocephalic, atraumatic Eye: Present: EOMI, PERRL - Routine Neck Exam Present: supple, full ROM, trachea midline - Routine Respiratory Exam Present: decreased breath sounds. Absent: accessory muscle use, patient mechanically ventilated - Routine Cardiovascular Exam Present: RRR, S1, S2, no murmur - Routine Abdominal Exam Present: soft, normoactive bowel sounds - Routine Extremities Exam Present: no edema, non tender, full ROM - Routine Back/Spine/Pelvis Exam Back/Spine: Present: full ROM - Routine Skin Exam Present: intact, dry - Routine Neurological Exam Present: alert, oriented X3, CN II-XII intact - Routine Psychiatric Exam Present: normal affect, normal thought process - Urinary Catheter Management Urethral Cath placed during this visit: yes, but has since been removed by the nurse Urethral indwelling: No Insertion date: 07/15/17 Insertion time: 22:45 Removal date: 07/19/17 Removal time: 11:30 Results - Laboratory Findings Laboratory: Laboratory Results - last 48 hr 07/22/17 07/22/17 07/23/17 03:58 03:58 03:53 WBC 8.8 9.3 RBC 4.21 L 4.22 L Hgb 11.3 L 11.5 L Hct 39.2 L 39.1 L MCV 93.1 92.7 MCH 26.8 27.3 MCHC 28.8 L 29.4 L RDW Std Deviation 60.3 H 60.0 H Plt Count 125 L 126 L MPV 10.8 10.5 Turbidity < 20 Sodium 145 H Potassium 3.8 Chloride 103 Carbon Dioxide 34 H Anion Gap 8 BUN 11.0 Creatinine 0.8 GFR Calculation 102 BUN/Creatinine Ratio 14 Glucose 119 H Glucometer Calculated Osmolality 279 Calcium 8.9 Phosphorus 2.3 L Magnesium 2.0 Icterus Index < 2 Albumin 3.3 L Specimen Hemolysis 17 07/23/17 07/23/17 03:53 06:03 WBC RBC Hgb Hct MCV MCH MCHC RDW Std Deviation Plt Count MPV Turbidity < 20 Sodium 146 H Potassium 3.6 Chloride 103 Carbon Dioxide 33 H Anion Gap 10 BUN 13.0 Creatinine 0.9 GFR Calculation 89 BUN/Creatinine Ratio 14 Glucose 113 H Glucometer 125 Calculated Osmolality 282 H Calcium 8.9 Phosphorus 3.1 Magnesium 1.9 Icterus Index < 2 Albumin 3.3 L Specimen Hemolysis < 15 Assessment and Plan - Assessment and Plan Acute on Chronic Hypoxic Hypercapnic Respiratory Failure COPD - unknown severity, was to be on BT's at home but unsure if he has been using his meds was supposed to be on budesonde BID and brovana BID with albuterol neb 1-2 times a day Methamphetamine use Acute on Chronic systolic HF/non ischemic cardiomyopathy, current EF less then 10% MARGI Atrial fibrillation hypoglycemia Abdominal cellulitis Plan: Pt currently on his home trilogy, otherwise on 3L per NC. Will continue his BT' s with budesonde BID, brovana BID with albuterol neb prn. No new CXR, on coreg and diuresis for CM/CHF. Cr improving along with liver enzymes. WBC normal, afebrile, abdominal cellulitis noted on ceftriaxone per primary. Hopefully home soon. - Time Spent With Patient Total time spent is greater than 50% in coordination of care (as documented) at patient's floor/unit and/or counseling patient: less than 15 minutes
[2017-07-23] MEDS: CEFTRIAXONE 1 G in NS 100 ML IV SCH (11:15)
[2017-07-23 11:22] VITALS: BP 136/81; PULSE 59
[2017-07-23 12:25] VITALS: O2SAT 94
--- NOTE | 2017-07-23 14:19 | Discharge Summary ---
Discharge Information Date of admission: 07/15/17 20:36 Anticipated date of discharge: 07/23/17 Attending Physician: Nicole Mendoza MD Primary care physician: Gray Rueda DO Consults: Dr. Jorden Rebolledo-pulmonology Dr. Merchant-cardiology - Discharge Diagnosis (1) Dilated cardiomyopathy Status: Chronic (2) Hypertension Status: Chronic (3) COPD, severe Status: Chronic (4) Tobacco dependence syndrome Status: Chronic (5) Anxiety Status: Acute (6) Congestive heart failure Status: Acute (7) Methamphetamine intoxication Status: Acute (8) Methamphetamine substance use disorder, mild, in sustained remission, in controlled environment, abuse Status: Chronic (9) Hypoglycemia Status: Acute (10) Metabolic encephalopathy Status: Acute (11) Hypoglycemia Status: Acute (12) Acute kidney injury Status: Acute Toxic/Metabolic encephalopathy (POA) - secondary to hypoglycemia, meth, and CO2 narcosis Acute hypoglycemia (POA) - resolved Acute methamphetamine intoxication with agitation and encephalopathy (POA) Acute Kidney Injury (POA) -resolved Leukocytosis (POA) Elevated Lactate (POA) - likely secondary to cardiomyopathy Chronic systolic CHF from [facility] Chronic hypoxic/hypercapnic respiratory failure - Trilogy vent at home, 3L during day COPD - on chronic oxygen at home 3 L H/O aflutter Hyperbilirubinemia and elevated liver enzymes - likely passive congestion of liver with medication effect Possible acute/recurrent cellulitis of abdominal wall - history of MRSA HLP Stage III CKD Tinea of skin folds Depression/Anxiety Tobacco dependency Morbid obesity - Procedures Procedures: None - Laboratory Labs: 07/23/17 03:53 07/23/17 03:53 - Microbiology Microbiology 07/16/17 12:21 Peripheral/Iv Start Blood Culture - Final No Growth After 5 Days 07/15/17 21:02 Peripheral/Iv Start Blood Culture - Final No Growth After 5 Days - Radiology Radiology: 07/16/17- Chest Xray- Impression: Improved pulmonary edema with only a mild amount of vascular congestion remaining. 07/18/17- Chest Xray- Impression: Right PICC line tip projects over the right atrium. This could be retracted by approximately 3 cm to reside at the cavoatrial junction if desired. - Pathology None History of Present Illness HPI: 52 year old male brought in by EMS after roommates notified them patient found unresponsive. Pt unable to give history and no witnesses able to assist at this time. EMS was told he has been using meth. Blood sugar on site was 29. No known use of insulin. Reportedly had used last night but not sure if today. Pt was reportedly combative and dangerous/violent and received 2 mg IM ativan and had been quite sedated following that. In ER needing D5 at 250 cc / hour to keep sugars up above 100. I have reviewed last discharge summary from June. Objective Vital signs: Temperature 96.8 F 07/23/17 08:00 Pulse Rate 59 L 07/23/17 11:21 Respiratory Rate 18 07/23/17 11:21 Blood Pressure 136/81 07/23/17 11:21 Pulse Oximetry 94 07/23/17 12:25 Rhythm: Normal Sinus Rhythm Height/Weight/BMI: Height 1.83 m Weight 131.5 kg Body Mass Index 39.9 - Constitutional Present: no acute distress, well nourished, well developed - Routine HEENT Exam Eye: Present: EOMI ENT: Present: mucous membranes moist, dentition normal - Routine Respiratory Exam Present: CTA bilaterally. Absent: wheezes - Routine Cardiovascular Exam Present: RRR, S1, S2. Absent: murmur - Routine Abdominal Exam Present: soft, normoactive bowel sounds, non distended. Absent: tenderness - Routine Extremities Exam Present: full ROM, normal capillary refill - Routine Back/Spine/Pelvis Exam Back/Spine: Present: full ROM - Routine Skin Exam Present: intact, dry, warm - Routine Neurological Exam Present: alert, oriented X3, CN II-XII intact, moving all extremities - Routine Lymphatic Exam Lymphatic: Absent: adenopathy - Routine Psychiatric Exam Present: normal affect, normal thought process, cooperative Hospital Course This is a general summary of the patient's hospital course. For more details refer to the complete medical record. Hospital course: 07/15/17 Admission - CCU Check ABG R/O AMI w serial enzymes Ativan PRN and restraints for patient and staff safety IV Rocephin x 1 for abd wall cellulitis, start vanco in AM when better IV access avaialbe, asked nursing to cassandra cellulitis w line Get off iv fluids fouzia with recent CHF issues Nebs PRN, no wheezing noted and minimal O2 requirements at this time Follow labs, check liver panel in AM and abd sono Critically ill: Guarded prognosis Care to return to Dr Rueda at time of discharger from [facility] [place]. 07/16/17 Acute hypoglycemia - Could be toxic effects of meth, does not have any insulin at home. Currently on D5 half normal saline at 50 mls per hour-dc and follow blood sugars Acute methamphetamine intoxication with agitation and encephalopathy -appears to be improving, still a bit agitated. Ativan PRN. Remove four- point restraints when he can be trusted not to take his BiPAP off Chronic systolic CHF from NIC[facility] - EKG looks unchanged, chest x-ray stable at this point Dr. Merchant consulted Resume Coreg. Holding MANI I due to [facility] - requiring BiPAP to maintain saturations H/O aflutter Hold amiodarone for now due to elevated LFTs - In SR at present Hold Xarelto for now COPD - on chronic oxygen at home [address] Rebolledo consulted Morbid obesity Acute Renal failure -will repeat labs this afternoon, poor urine output Hyperbilirubinemia and elevated liver enzymes - will repeat labs in follow, Bili trending down, AST/ALT trending up -Hepatitis panel pending -Hold amiodarone for now Possible acute/ recurrent cellulitis - history of MRSA Vancomycin started, pharm consult for dosing - Rocephin IV HLP - Holding statin due to elevated LFTs Possible acute severe sepsis (lactate > 2, cellulitis) Present on admit - Repeat lactate normal Will consult wound and skin Nystatin for groin folds 07/17/17 Blood sugars improved, encephalopathy improving but patient still very somnolent. Minimize benzodiazepines and narcotics. Last lorazepam yesterday am. Respiratory status improving - maintaining saturation on baseline 3L. Wearing BiPAP as directed. Renal status improve with creatinine decreasing to 1.8. Oral intake decreased. Not on IVF secondary to cardiomyopathy. On home maintenance furosemide. Lisinopril remains on hold. Liver enzymes gradually decreasing. Holding amiodarone and simvastatin. Will continue with vancomycin and ceftriaxone for antimicrobial coverage, WBC decreased to 11.8. Increase activities as somnolence improves. Transfer to medical floor as encephalopathy decreasing. 07/18/17 Respiratory status improving -continues on baseline oxygen of 3 liters. Utilizing BiPAP with sleeping and napping. Creatinine continues to improve, today down to 1.1. With resuming low-dose lisinopril 2.5 milligrams daily LFTs also continued to improve- amiodarone and simvastatin remain on hold. Continue with vancomycin and ceftriaxone for antimicrobial coverage of abdominal skin. Will restart Xarelto and stop SQ Heparin. Consult placed for PT and OT to evaluate strength and function. Patient refuse to work with therapy today. States "I'm too weak. I can't even roll over." Consultations with Dr. Rebolledo and Dr. Merchant. 07/19/17 Creatinine continues to improve 1.1-->0.8. LFTs also continue to improve-amiodarone and simvastatin remain on hold. Will have cardiology restart when they feel appropriate. geothermal field technician reports few episodes of Vtach overnight and this am. Cardiology following. Pulmonology following - [facility]. Pt sats mostly >95 % on 3L - wean as able keeping sats >90% Leukocytosis resolved. Ab wall cellulitis improving - will continue ceftriaxone but can stop Vancomycin. Encouraged pt to work with therapy today despite his overwhelming fatigue. Stressed to patient the importance of being up more and being mobile. Needs for acute hospitalization are decreasing-worry pt will be too debilitated to return home when that time comes. Discuss with patient about working with therapy when they come by and not refusing. Stressed need to be up and more mobile. If patient unwilling or unable to do these activities, likelihood for returning home is low. Discussed about potential for custodial care if not able to be more active and mobile. Pt reports he will work on this. 07/20/17 Creatinine and BUN have normalized. LFT's continue to improve. Per cardiology - Increase Coreg to 12.5mg BIDWM and lisinopril to 5mg daily. Resume amiodarone when LFT's normalize. Patient has shown some effort to work with therapy. Importance of working with PT/OT reiterated if pt wants to DC home. Pulmonology following - [facility], nebul[facility]. Pulm reports patient at baseline pulmonary status. Vanc DC'd yesterday, continues on ceftriaxone for abdominal wall cellulitis. WBC up today, but doubt r/t infection. Repeat in am. 07/21/17 Continue coreg and lisinopril at the doses increased on 07/19 Resume amiodarone today Continue home trilogy and nebulized treatments per pulm recommendations Add diamox 250 mg BID today given rising bicarb and monitor Continue PT Continue rocephin for abdominal wall cellulitis and monitor CBC I am not comfortable discharging this medically complex and noncompliant patient without having his outpatient f/u plan fully established and plan for ongoing therapy. He also had substance abuse issues that have not been addressed and continued labile moods. He has not been up out of bed as best I can tell. I have let him know that he will need to work on getting out of bed and working with PT. If discharging AMA, I have outlined his risk including risk of further decompensation of chronic medical conditions and . 07/22/17 Continue carvedilol and lisinopril for hypertension, will increase carvedilol to 25 BID and monitor HR and BP Continue amiodarone and monitor LFTs outpatient Continue home trilogy and nebulized treatments per pulm recommendations Decrease diamox to 250 mg once daily and monitor bicarb levels Continue PT as ordered; will need to discuss DC planning tomorrow, he prefers to DC home and is not agreeable to any facility care Continue rocephin for abdominal wall cellulitis and monitor CBC Encouraged ambulation TID with 02 support Encouraged increased intake and high phos diet Assess iron stores if Hb falls < 10 given CKD; may benefit from epo 07/23/17- Discharge Gray is seen and examined today. Overall he is feeling better. He does continue to use bipap- and home Trilogy. Pulmonology recommends continuing on home nebulizers, including budesonide and Brovana twice a day as well as albuterol when necessary. Etiology recommends utilizing LifeVest at home. He is to be continued on lisinopril 5 milligrams, Coreg 25 milligrams and Lasix 40 milligrams daily. Xarelto and Zocor are also continued. Cardiology discontinued amiodarone. He will continue on 3 more days of Diamox 250 milligrams. He is then instructed to follow up with primary care provider, Dr. Rueda in 1 week and have a recheck in CBC and a BMP at that time. Follow up with Dr Rebolledo in [address] Merchant 08/07 at 910am Time spent with patient: discharge greater than 30 minutes Resuscitation Status: Full Code Discharge Plan - Discharge Disposition Discharge Date: 05/14/18 Disposition: 01 Discharged Home, Self-Care *Condition: Improved Reason For Visit (Visit label in EMR): ms changes, hypoglycemia, meth overdose, hyperkale - Discharge Medications *Discharge Medications: New Lisinopril [Prinivil] 5 mg PO DAILY #30 tab Arformoterol Neb [Brovana Neb] 15 mcg AEROSOL RTBID #1 box Gabapentin [Neurontin] 200 mg PO 0800,1400 cap Gabapentin [Neurontin] 300 mg PO HS cap Carvedilol [Coreg] 25 mg PO BIDWM #60 tab acetaZOLAMIDE [Diamox 250 mg] 250 mg PO DAILY #3 tab Albuterol/Ipratropium [Duoneb] 3 ml AEROSOL RTQID PRN #1 box PRN Reason: wheezing Continue Acetaminophen [Tylenol] 325 - 650 mg PO Q5H PRN tab PRN Reason: Discomfort Furosemide [Lasix 40 mg Tab] 40 mg PO DAILY #30 tab Rivaroxaban [Xarelto] 20 mg PO WS #30 tab Simvastatin [Zocor] 20 mg PO HS #30 tab Albuterol Neb (0.083%) [Proventil Neb (0.083%)] 2.5 mg AEROSOL QID #120 vial Budesonide Inhalation [Pulmicort Inhalation] 0.5 mg INH BID #60 vial Ipratropium [place] 1 dose AEROSOL QID #120 bottle Sertraline [Zoloft] 50 mg PO DAILY #30 tab Discontinued ALPRAZolam [Xanax] 0.5 mg PO TID PRN #15 tab PRN Reason: Anxiety Amiodarone [Pacerone] 200 mg PO DAILY #30 tab Gabapentin [Neurontin] 300 mg PO TID #90 cap Hydrocodone/APAP 5/325 [[place] 5/325] 1 tab PO Q4H PRN #20 tab PRN Reason: Pain Lisinopril [Prinivil] 2.5 mg PO DAILY #30 tab Carvedilol [Coreg] 3.125 mg PO BIDWM #60 tab - Discharge Packet/Instructions *Diet: Regular diet *Activity: Activity as tolerated *Pain Management/Treatment: Tylenol as needed for pain *Wound Care: None Additional Instructions: His home Trilogy as instructed by director print. Use 3 liters of oxygen by nasal cannula. Scheduled Pulmicort and Brovana twice a day with albuterol as needed. Diamox daily for 3 additional days. Will then need reevaluation by Dr. Rueda *Expected Signs/Symptoms: Conintued improvement in breathing *Notify Physician if: Increased shortness of breath, chest pain, fever or other concerning symptoms *During Business Hours Contact: Contact Dr Rueda *After Business Hours Contact: Page on-call provider or present to the emergency room *Pending Lab/Results: No Pending Lab - Referrals/Follow Up *Referrals/Follow Up: Lee Merchant MD [Physician] - 08/07/17 9:10 am Gray Rueda DO [Primary Care Provider] - (Follow-up appointment for one week, will need CBC and BMP at that time) Jorden Rebolledo MD [Physician] - (Please schedule follow-up appointment for 2 weeks) - Patient Handouts Patient Handouts: Hypoglycemia in a Person with Diabetes (DC), Hyperkalemia (DC ), Methamphetamine Abuse (DC), Altered Mental Status (GEN) - Dismissal Complete Discharge Instructions are:: Complete Physician Narrative - Narrative Physician: Nicole Mendoza MD Attestation Narrative: Date: 07/23/17 Time: 1445 I examined the patient independently. I reviewed this chart, the patient history , and the SYSTEMS OPERATOR's/PA's documented findings as above. We discussed and formulated the assessment and plan as above with the additions below.-Dr. Mendoza Patient was seen this afternoon in his room. He is sitting up in his chair and states he feels well. He denies pain and any shortness of breath. He states he feels ready for dismissal. He states he's getting around okay. He has a walker at home. He has his Trilogy event here in the hospital and will be taking at home. He states he tolerates it well. He had lower abdominal wall/pannus cellulitis and this has resolved. He is eating and drinking well. On exam he is alert and in no acute distress. Neck is supple. Chest is clear to auscultation. Cardiovascular reveals a regular rate and rhythm. Abdomen is soft , obese, nontender with positive bowel sounds. There is no erythema of the abdomen or pannus. Extremities reveal only trace edema Impression and plan Overall, the patient appears to be improved markedly from admission. Encephalopathy has resolved. Vital signs are stable on his current blood pressure medications. He is on his usual home oxygen of 3 L. He is tolerating his home Trilogy event at night. Liver enzymes are improving. Amiodarone was discontinued by cardiology. Abdominal wall cellulitis appears resolved. He has received 8 days of Rocephin. He will be on Diamox for 3 more days at discharge and then discontinue. He will need follow-up lab next week when he sees Dr. Ha. He does need to use his LifeVest at home. He is to avoid all illegal drugs. He has his walker at home for ambulation. I did call and update Dr. Ha regarding hospital course and discharge plans.
== END 2017-07-23 16:00 | disposition home or self-care (01) | DRG 917 ==
LOC: ED 18:14 → CCU 20:36 → SUATTDRO 20:36 → CCU 21:30 → MED 07-17 18:25
PROVIDERS: ADMIT Pediatrics; ATTEND Internal Medicine